=== PATIENT | female | born 1975 | race Caucasian/White ===

== ENCOUNTER 2016-10-21 13:19 | Observation (INO) | payer MEDICAID, OTHER ==
[2016-10-21] MEDS ORDERED: Sodium Chloride 0.9% 1,000 ML IV ONE ×2 (13:21→15:21)
[2016-10-21] MEDS ORDERED: Aspirin 81 MG Tab.Chew PO ONE (13:39)
[2016-10-21] MEDS ORDERED: Nitroglycerin 0.4 MG Tab.SL ONE (13:40)
[2016-10-21] MEDS ORDERED: Aspirin 81 MG Tab.Chew ONE (13:41)
[2016-10-21] MEDS: Nitroglycerin 0.4 MG Tab.SL SL PRN ×3 (13:46→13:57)
[2016-10-21] MEDS ORDERED: Morphine 2 MG/ML Syringe IVPUSH ONE ×3 (14:00→14:43)
--- NOTE | 2016-10-21 14:13 | EDM.PDOC ---
ED HPI GENERAL MEDICAL PROBLEM - General Chief Complaint: Chest Pain Stated Complaint: CHEST PAIN Time Seen by Provider: 10/21/16 13:21 Source of Information: Reports: Patient History Limitations: Reports: No Limitations - History of Present Illness INITIAL COMMENTS - FREE TEXT/NARRATIVE: HISTORY AND PHYSICAL: History of present illness: [Patient comes to the emergency room complaining of chest pain. She identifies the area of pain as being to her left chest with radiation to her left neck into her left shoulder and down her left arm. Pain developed this morning around 7 AM. Onset was gradual. Pain is currently 8 out of 10. History of CT in 2013 requiring stent 1. She has a history of diabetes for which she typically wears an insulin pump. She has not had any insulin or any of her regular medications for the past 12 months as she lost her job and insurance. She has been taking a baby aspirin every day. Has not seen her music educator, Dr. Vu for at least one year. Patient states that she always has some low-level chest pain and shortness of breath which she attributes to her asthma and COPD. She feels as though her symptoms are worse today. No improvement in her symptoms with albuterol nebulizer treatment at home.] Review of systems: As per history of present illness and below otherwise all systems reviewed and negative. Past medical history: As per history of present illness and as reviewed below otherwise noncontributory. Surgical history: As per history of present illness and as reviewed below otherwise noncontributory. Social history: No reported history of drug or alcohol abuse. Family history: As per history of present illness and as reviewed below otherwise noncontributory. Physical exam: Gen.: Well-developed well-nourished female in no acute distress. Appears to be in good health. HEENT: Atraumatic, normocephalic. Oral mucous membranes are pink and moist. Neck supple no lymphadenopathy. Lungs: Clear to auscultation, breath sounds equal bilaterally. Heart: Normal S1S2, regular rate and rhythm. Abdomen: Soft, nondistended, nontender. Pelvis: Stable nontender. Genitourinary: Deferred. Rectal: Deferred. Extremities: Atraumatic, negative for cords or calf pain. No cyanosis or edema. Neurovascular unremarkable. Neuro: Awake, alert, oriented. Motor and sensory unremarkable throughout. Exam nonfocal. Diagnostics: [EKG, chest x-ray, CBC, CMP, amylase, lipase, UA, troponin, PT/INR] Therapeutics: [Nitroglycerin 3, aspirin 324 mg, IV normal saline 250 mL/hour,] Impression: [Chest pain hyperglycemia diabetes, uncontrolled Medication noncompliance] Plan: [Glucose 404 upon presentation to the ER. Pain is 6/10 following 3 tabs of nitroglycerin. 2 doses of Morphine 2mg and 1 liter NS are given which brings pain to 0/10. EKG shows no acute findings or ST changes. Chest x-ray is without abnormality. Sodium 134, calcium 8.3. Glucose 487. Troponin <0.10. Patient's condition is discussed with Dr. Peterson who agrees to keep patient overnight for observation.] Definitive disposition and diagnosis as appropriate pending reevaluation and review of above. Left Chest Pain Score (Numeric/FACES): 8 - Related Data Allergies Allergy/AdvReac Type Severity Reaction Status Date / Time prednisone Allergy Mild Nausea Verified 10/21/16 14:11 doxycycline Allergy Hives Verified 10/21/16 14:11 Home Meds: Home Meds metFORMIN [Glucophage] 500 mg PO BID 06/21/13 [History] Fenofibrate [Fenoglide] 145 mg PO PCDINNER 05/08/14 [History] Omeprazole 20 cap PO DAILY 05/08/14 [History] Aspirin [Adeel Chewable Aspirin] 81 mg PO DAILY 07/26/14 [History] Albuterol Sulfate [Proair Hfa] 2 puff INH QID PRN 03/04/15 [History] Budesonide/Formoterol [Symbicort 160-4.5 MCG] 2 puff INH BID PRN 03/04/15 [ History] Fluticasone Propionate [Flonase Allergy Relief] 1 spray EITAN ASDIRECTED PRN 03/04 [History] Metoprolol Succinate [Toprol XL] 25 mg PO BEDTIME 03/04/15 [History] Nitroglycerin [Nitrostat] 1 tab SL ASDIRECTED 03/04/15 [History] Diltiazem HCl [Diltiazem 24Hr ER] 180 mg PO BEDTIME 06/17/15 [History] Insulin Pump/Infus. Set/Meter [Accu-Chek Combo System] 1 dose PERCUT ASDIRECTED 09/06/15 [History] Lisinopril 5 mg PO DAILY 10/01/15 [History] Ondansetron HCl [Ondansetron] 8 mg PO ASDIRECTED PRN 10/01/15 [History] atorvaSTATin Calcium [Atorvastatin Calcium] 40 mg PO BEDTIME 10/01/15 [History] traMADol [Ultram] 1 tab PO QID PRN 10/12/15 [History] Past Medical History HEENT 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: Impaired Vision Other HEENT History: wears glasses, ear infection Cardiovascular 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: Angina, High Cholesterol, Hypertension, CT Other Cardiovascular History: hx of CT with cardiac stenting 1 year ago Respiratory 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: Asthma, Bronchitis, Recurrent, COPD Other Respiratory History: Tobacco dependence, COPD with Nebulizer treatments and inhaler, Hx of bronchitis annd pneumonia Gastrointestinal 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: GERD, Hiatal Hernia Other Gastrointestinal History: abd pain Genitourinary 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: None [employer]OR OF [employer] 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: Other OB/BYN History: Cyst in ovaries Musculoskeletal 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: Arthritis Other Musculoskeletal History: right foot and ankle Neurological 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: None Other Neuro History: hx: Headaches Psychiatric 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: None Endocrine/Metabolic 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: Diabetes, Type I, Obesity/BMI 30+ Hematologic 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: Anemia Immunologic 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: None Oncologic (Cancer) 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: None Dermatologic 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: None Other Dermatologic History: current rash on left arm - Infectious Disease History Infectious Disease 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: Chicken Pox, Measles - Past Surgical History HEENT Surgical 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: Myringotomy w Tube(s) Cardiovascular Surgical 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: Coronary Artery Stent Social & Family History - Family History Family Medical History: Noncontributory HEENT: Reports: Cataract, Impaired Vision, Otitis Media, Sinusitis Cardiac: Reports: High Cholesterol, Hypertension, CT Other Cardiac Family History: heart problems maternal and paternal sides Respiratory: Reports: Asthma, COPD, Sleep Apnea GI: Reports: None Musculoskeletal: Reports: Arthritis, Gout Neurological: Reports: CVA Endocrine/Metabolic: Reports: Diabetes, Type I, Diabetes, type II, Hyperthyroidism, Obesity/MBI 30+ Hematologic: Reports: Anemia Oncologic: Reports: Lung - Tobacco Use Smoking Status *Q: Light Tobacco Smoker Years of Tobacco use: 20 Packs/Tins Daily: 0.5 Used Tobacco, but Quit: Yes Month Tobacco Last Used: t Second Hand Smoke Exposure: Yes - Alcohol Use Days Per Week of Alcohol Use: 0 - Recreational Drug Use Recreational Drug Use: No Drug Use in Last 12 Months: No ED ROS GENERAL - Review of Systems Review Of Systems: ROS reveals no pertinent complaints other than HPI. ED EXAM, GENERAL - Physical Exam Exam: See Below Course - Vital Signs Last Recorded V/S: Last Vital Signs Temp 98.5 F 10/21/16 17:10 Pulse 80 10/21/16 17:10 Resp 17 10/21/16 17:10 BP 110/61 10/21/16 17:10 Pulse Ox 96 10/21/16 17:10 - Orders/Labs/Meds Orders: Active Orders 24 hr Category Date Time Status EKG Documentation Completion [RC] STAT Care 10/21/16 13:21 Active RT Aerosol Therapy [RC] ASDIRECTED Care 10/21/16 14:47 Active Labs: Laboratory Tests 10/21/16 10/21/16 10/21/16 Range/Units 13:30 13:32 13:32 WBC 8.66 (4.0-11.0) K/uL RBC 5.38 (4.30-5.90) M/uL Hgb 13.1 (12.0-16.0) g/dL Hct 41.1 (36.0-46.0) % MCV 76.4 L (80.0-98.0) fL MCH 24.3 L (27.0-32.0) pg MCHC 31.9 (31.0-37.0) g/dL RDW Std Deviation 45.2 (28.0-62.0) fl RDW Coeff of Demond 16 H (11.0-15.0) % Plt Count 177 (150-400) K/uL MPV 10.70 (7.40-12.00) fL Neut % (Auto) 58.9 (48.0-80.0) % Lymph % (Auto) 32.9 (16.0-40.0) % Banks % (Auto) 6.7 (0.0-15.0) % Eos % (Auto) 1.2 (0.0-7.0) % Baso % (Auto) 0.3 (0.0-1.5) % Neut # (Auto) 5.1 (1.4-5.7) K/uL Lymph # (Auto) 2.9 H (0.6-2.4) K/uL Banks # (Auto) 0.6 (0.0-0.8) K/uL Eos # (Auto) 0.1 (0.0-0.7) K/uL Baso # (Auto) 0.0 (0.0-0.1) K/uL Nucleated RBC % 0.0 /100WBC Nucleated RBCs # 0 K/uL INR 0.91 (0.86-1.11) Sodium (136-146) mmol/L Potassium (3.5-5.1) mmol/L Chloride (98-110) mmol/L Carbon Dioxide (21-31) mmol/L BUN (6.0-23.0) mg/dL Creatinine (0.6-1.5) mg/dL Est Cr Clr Drug Dosing mL/min Estimated GFR (MDRD) ml/min Glucose (60-110) mg/dL POC Glucose 404 H (60-110) mg/dL Calcium (8.8-10.8) mg/dL Total Bilirubin (0.1-1.5) mg/dL AST (5-40) IU/L ALT (8-54) IU/L Alkaline Phosphatase (40-150) Troponin I (0.0-0.29) NG/ML Total Protein (6.0-8.0) g/dL Albumin (3.5-5.0) g/dL Globulin (2.0-3.5) g/dL Albumin/Globulin Ratio (1.3-2.8) Amylase (10-90) U/L Lipase (7-80) U/L Urine Color Urine Appearance Urine pH (5.0-8.0) Ur Specific [place] (1.001-1.035) Urine Protein (NEGATIVE) mg/dL Urine Glucose (UA) (NEGATIVE) mg/dL Urine Ketones (NEGATIVE) mg/dL Urine Occult Blood (NEGATIVE) Urine Nitrite (NEGATIVE) Urine Bilirubin (NEGATIVE) Urine Urobilinogen (<2.0) EU/dL Ur Leukocyte Esterase (NEGATIVE) Urine RBC (0-2/HPF) Urine WBC (0-5/HPF) Ur Epithelial Cells (NONE-FEW) Urine Bacteria (NEGATIVE) Urine HCG, Qual (NEGATIVE) 10/21/16 10/21/16 10/21/16 Range/Units 13:32 13:32 14:12 WBC (4.0-11.0) K/uL RBC (4.30-5.90) M/uL Hgb (12.0-16.0) g/dL Hct (36.0-46.0) % MCV (80.0-98.0) fL MCH (27.0-32.0) pg MCHC (31.0-37.0) g/dL RDW Std Deviation (28.0-62.0) fl RDW Coeff of Demond (11.0-15.0) % Plt Count (150-400) K/uL MPV (7.40-12.00) fL Neut % (Auto) (48.0-80.0) % Lymph % (Auto) (16.0-40.0) % Banks % (Auto) (0.0-15.0) % Eos % (Auto) (0.0-7.0) % Baso % (Auto) (0.0-1.5) % Neut # (Auto) (1.4-5.7) K/uL Lymph # (Auto) (0.6-2.4) K/uL Banks # (Auto) (0.0-0.8) K/uL Eos # (Auto) (0.0-0.7) K/uL Baso # (Auto) (0.0-0.1) K/uL Nucleated RBC % /100WBC Nucleated RBCs # K/uL INR (0.86-1.11) Sodium 134 L (136-146) mmol/L Potassium 4.1 (3.5-5.1) mmol/L Chloride 104 (98-110) mmol/L Carbon Dioxide 20 L (21-31) mmol/L BUN 10 (6.0-23.0) mg/dL Creatinine 0.9 (0.6-1.5) mg/dL Est Cr Clr Drug Dosing 73.27 mL/min Estimated GFR (MDRD) > 60.0 ml/min Glucose 487 H (60-110) mg/dL POC Glucose (60-110) mg/dL Calcium 8.3 L (8.8-10.8) mg/dL Total Bilirubin 0.3 (0.1-1.5) mg/dL AST 13 (5-40) IU/L ALT 14 (8-54) IU/L Alkaline Phosphatase 109 (40-150) Troponin I < 0.10 (0.0-0.29) NG/ML Total Protein 6.9 (6.0-8.0) g/dL Albumin 3.5 (3.5-5.0) g/dL Globulin 3.4 (2.0-3.5) g/dL Albumin/Globulin Ratio 1.0 L (1.3-2.8) Amylase 38 (10-90) U/L Lipase 62 (7-80) U/L Urine Color Urine Appearance Urine pH (5.0-8.0) Ur Specific [place] (1.001-1.035) Urine Protein (NEGATIVE) mg/dL Urine Glucose (UA) (NEGATIVE) mg/dL Urine Ketones (NEGATIVE) mg/dL Urine Occult Blood (NEGATIVE) Urine Nitrite (NEGATIVE) Urine Bilirubin (NEGATIVE) Urine Urobilinogen (<2.0) EU/dL Ur Leukocyte Esterase (NEGATIVE) Urine RBC (0-2/HPF) Urine WBC (0-5/HPF) Ur Epithelial Cells (NONE-FEW) Urine Bacteria (NEGATIVE) Urine HCG, Qual NEGATIVE (NEGATIVE) 10/21/16 Range/Units 14:12 WBC (4.0-11.0) K/uL RBC (4.30-5.90) M/uL Hgb (12.0-16.0) g/dL Hct (36.0-46.0) % MCV (80.0-98.0) fL MCH (27.0-32.0) pg MCHC (31.0-37.0) g/dL RDW Std Deviation (28.0-62.0) fl RDW Coeff of Demond (11.0-15.0) % Plt Count (150-400) K/uL MPV (7.40-12.00) fL Neut % (Auto) (48.0-80.0) % Lymph % (Auto) (16.0-40.0) % Banks % (Auto) (0.0-15.0) % Eos % (Auto) (0.0-7.0) % Baso % (Auto) (0.0-1.5) % Neut # (Auto) (1.4-5.7) K/uL Lymph # (Auto) (0.6-2.4) K/uL Banks # (Auto) (0.0-0.8) K/uL Eos # (Auto) (0.0-0.7) K/uL Baso # (Auto) (0.0-0.1) K/uL Nucleated RBC % /100WBC Nucleated RBCs # K/uL INR (0.86-1.11) Sodium (136-146) mmol/L Potassium (3.5-5.1) mmol/L Chloride (98-110) mmol/L Carbon Dioxide (21-31) mmol/L BUN (6.0-23.0) mg/dL Creatinine (0.6-1.5) mg/dL Est Cr Clr Drug Dosing mL/min Estimated GFR (MDRD) ml/min Glucose (60-110) mg/dL POC Glucose (60-110) mg/dL Calcium (8.8-10.8) mg/dL Total Bilirubin (0.1-1.5) mg/dL AST (5-40) IU/L ALT (8-54) IU/L Alkaline Phosphatase (40-150) Troponin I (0.0-0.29) NG/ML Total Protein (6.0-8.0) g/dL Albumin (3.5-5.0) g/dL Globulin (2.0-3.5) g/dL Albumin/Globulin Ratio (1.3-2.8) Amylase (10-90) U/L Lipase (7-80) U/L Urine Color YELLOW Urine Appearance CLEAR Urine pH 6.0 (5.0-8.0) Ur Specific [place] 1.010 (1.001-1.035) Urine Protein NEGATIVE (NEGATIVE) mg/dL Urine Glucose (UA) >=1000 (NEGATIVE) mg/dL Urine Ketones NEGATIVE (NEGATIVE) mg/dL Urine Occult Blood NEGATIVE (NEGATIVE) Urine Nitrite NEGATIVE (NEGATIVE) Urine Bilirubin NEGATIVE (NEGATIVE) Urine Urobilinogen 0.2 (<2.0) EU/dL Ur Leukocyte Esterase TRACE (NEGATIVE) Urine RBC 0-2 (0-2/HPF) Urine WBC 3-5 (0-5/HPF) Ur Epithelial Cells FEW (NONE-FEW) Urine Bacteria FEW (NEGATIVE) Urine HCG, Qual (NEGATIVE) Meds: Medications Discontinued Medications Generic Name Dose Route Start Last Admin Trade Name Freq PRN Reason Stop Dose Admin Albuterol/Ipratropium 3 ml 10/21/16 14:47 10/21/16 14:55 Duoneb 3.0-0.5 Mg/3 Ml NEB 10/21/16 14:48 3 ml ONETIME ONE Administration Aspirin 324 mg 10/21/16 13:39 10/21/16 13:43 Aspirin PO 10/21/16 13:40 324 mg ONETIME ONE Administration Aspirin Confirm 10/21/16 13:41 10/21/16 13:53 Aspirin Administered 10/21/16 13:42 Not Given Dose 324 mg .ROUTE .STK-MED ONE Sodium Chloride 1,000 mls @ 250 mls/hr 10/21/16 13:21 10/21/16 13:54 Normal Saline IV 10/21/16 17:20 250 mls/hr .Bolus ONE Administration Sodium Chloride 1,000 mls @ 999 mls/hr 10/21/16 15:21 10/21/16 16:28 Normal Saline IV 10/21/16 16:21 999 mls/hr STAT ONE Administration Morphine Sulfate 2 mg 10/21/16 14:00 10/21/16 14:04 Morphine IVPUSH 10/21/16 14:01 2 mg ONETIME ONE Administration Morphine Sulfate 2 mg 10/21/16 14:42 10/21/16 15:24 Morphine IVPUSH 10/21/16 14:43 2 mg ONETIME ONE Administration Morphine Sulfate 2 mg 10/21/16 14:43 10/21/16 14:48 Morphine IVPUSH 10/21/16 14:44 Not Given ONETIME ONE Nitroglycerin 0.4 mg 10/21/16 13:39 10/21/16 13:57 Nitrostat SL 10/21/16 13:50 0.4 mg Q5M PRN Administration Chest Pain Nitroglycerin Confirm 10/21/16 13:40 10/21/16 13:53 Nitrostat Administered 10/21/16 13:41 Not Given Dose 1.2 mg .ROUTE .STK-MED ONE Ondansetron HCl 4 mg 10/21/16 14:42 10/21/16 14:49 Zofran IVPUSH 10/21/16 14:43 Not Given ONETIME ONE Ondansetron HCl 4 mg 10/21/16 14:42 10/21/16 15:22 Zofran IVPUSH 10/21/16 14:43 4 mg ONETIME ONE Administration Departure - Departure Time of Disposition: 17:29 Disposition: Refer to Observation Condition: Good Clinical Impression: Chest pain - My Orders Last 24 Hours: My Active Orders 10/21/16 13:21 EKG Documentation Completion [RC] STAT 10/21/16 14:47 RT Aerosol Therapy [RC] ASDIRECTED - Assessment/Plan Last 24 Hours: My Active Orders 10/21/16 13:21 EKG Documentation Completion [RC] STAT 10/21/16 14:47 RT Aerosol Therapy [RC] ASDIRECTED
[2016-10-21 14:39] LABS: CHLORIDE,CL 104 mmol/L (98-110); SODIUM,NA 134 mmol/L (136-146)
[2016-10-21] MEDS ORDERED: Ondansetron 4 MG/2 ML SDV IVPUSH ONE ×2 (14:42)
--- NOTE | 2016-10-21 14:43 | CR ---
2 view chest x-ray The heart lungs with distended abdomen bony thorax are free of acute pathology. Cardiac monitoring l yoshi are in place. Impression: No acute cardiopulmonary disease. No change since December 10, 2015
[2016-10-21] MEDS ORDERED: Albuterol/Ipratropium 3.0-0.5 MG/3 ML Neb Soln NEB ONE (14:47)
[2016-10-21] MEDS ORDERED: Acetaminophen 325 MG Tab PO PRN (18:03)
[2016-10-21] MEDS ORDERED: Sodium Chloride 0.9% 2.5 ML Syringe FLUSH PRN (18:03)
[2016-10-21] MEDS ORDERED: Ondansetron 4 MG Tab.DIS PO PRN (18:03)
[2016-10-21] MEDS ORDERED: Albuterol/Ipratropium 3.0-0.5 MG/3 ML Neb Soln NEB PRN (18:03)
[2016-10-21] MEDS ORDERED: Sodium Chloride 0.9% 10 ML Syringe FLUSH PRN (18:03)
[2016-10-21] MEDS ORDERED: Nitroglycerin 0.4 MG Tab.SL SL PRN (18:20)
--- NOTE | 2016-10-21 18:31 | PCM.HP ---
H&P History of Present Illness - General Date of Service: 10/21/16 Admit Problem/Dx: Admission Diagnosis/Problem Admission Diagnosis/Problem Chest pain Source of Information: Patient - History of Present Illness Initial Comments - Free Text/Narative: -year-old female here secondary to acute chest pain. Patient has a significant past medical history of GA 3 years ago with stent placement. Patient states that this morning she was cleaning when she felt a sharp spasm type pain in her left shoulder that started to radiate down her arm as well as subsequently developing a pressure/achy chest pain that was not alleviated. Patient became concerned secondary to her significant cardiovascular history and came to the emergency department. Patient stated that she did not take any other medication aside from aspirin. She is a type II diabetic as well has a history of COPD. Patient is supposed to be on senior care inhalers as well as a insulin pump with metformin as well as a hypertensive for her hypertension however due to financial concerns she has been unable to refill any of her medications. The only medication she is taking at this point in time is 81 mg of aspirin. In the ED the patient was given sublingual nitroglycerin was assessed for her chest pain with an ECG which was normal, troponins first set which were normal, and a relatively benign CBC and CMP. Patient did however have a significant hyperglycemia with a blood sugar of about 450 and on a secondary check a blood sugar of 404. Based on the significant past medical history of myocardial infarction with stent placement the patient needs to be admitted for acute coronary syndrome rule out. She does see Dr. Knox who is her archeologist classical in [place], however has not seen him for at least the past year. Left Chest Pain Score (Numeric/FACES): 8 - Related Data Allergies/Adverse Reactions: Allergies Allergy/AdvReac Type Severity Reaction Status Date / Time prednisone Allergy Mild Nausea Verified 10/21/16 14:11 doxycycline Allergy Hives Verified 10/21/16 14:11 Home Medications: Home Meds metFORMIN [Glucophage] 500 mg PO BID 06/21/13 [History] Fenofibrate [Fenoglide] 145 mg PO PCDINNER 05/08/14 [History] Omeprazole 20 cap PO DAILY 05/08/14 [History] Aspirin [Adeel Chewable Aspirin] 81 mg PO DAILY 07/26/14 [History] Albuterol Sulfate [Proair Hfa] 2 puff INH QID PRN 03/04/15 [History] Budesonide/Formoterol [Symbicort 160-4.5 MCG] 2 puff INH BID PRN 03/04/15 [ History] Fluticasone Propionate [Flonase Allergy Relief] 1 spray EITAN ASDIRECTED PRN 03/04 [History] Metoprolol Succinate [Toprol XL] 25 mg PO BEDTIME 03/04/15 [History] Nitroglycerin [Nitrostat] 1 tab SL ASDIRECTED 03/04/15 [History] Diltiazem HCl [Diltiazem 24Hr ER] 180 mg PO BEDTIME 06/17/15 [History] Insulin Pump/Infus. Set/Meter [Accu-Chek Combo System] 1 dose PERCUT ASDIRECTED 09/06/15 [History] Lisinopril 5 mg PO DAILY 10/01/15 [History] Ondansetron HCl [Ondansetron] 8 mg PO ASDIRECTED PRN 10/01/15 [History] atorvaSTATin Calcium [Atorvastatin Calcium] 40 mg PO BEDTIME 10/01/15 [History] traMADol [Ultram] 1 tab PO QID PRN 10/12/15 [History] Past Medical History HEENT 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: Impaired Vision Other HEENT History: wears glasses, ear infection Cardiovascular 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: Angina, High Cholesterol, Hypertension, GA Other Cardiovascular History: hx of GA with cardiac stenting 1 year ago Respiratory 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: Asthma, Bronchitis, Recurrent, COPD Other Respiratory History: Tobacco dependence, COPD with Nebulizer treatments and inhaler, Hx of bronchitis annd pneumonia Gastrointestinal 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: GERD, Hiatal Hernia Other Gastrointestinal History: abd pain Genitourinary 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: None [employer]UE 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: Other OB/BYN History: Cyst in ovaries Musculoskeletal 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: Arthritis Other Musculoskeletal History: right foot and ankle Neurological 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: None Other Neuro History: hx: Headaches Psychiatric 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: None Endocrine/Metabolic 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: Diabetes, Type I, Obesity/BMI 30+ Hematologic 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: Anemia Immunologic 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: None Oncologic (Cancer) 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: None Dermatologic 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: None Other Dermatologic History: current rash on left arm - Infectious Disease History Infectious Disease 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: Chicken Pox, Measles - Past Surgical History HEENT Surgical 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: Myringotomy w Tube(s) Cardiovascular Surgical 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: Coronary Artery Stent Social & Family History - Family History Family Medical History: Noncontributory HEENT: Reports: Cataract, Impaired Vision, Otitis Media, Sinusitis Cardiac: Reports: High Cholesterol, Hypertension, GA Other Cardiac Family History: heart problems maternal and paternal sides Respiratory: Reports: Asthma, COPD, Sleep Apnea GI: Reports: None Musculoskeletal: Reports: Arthritis, Gout Neurological: Reports: CVA Endocrine/Metabolic: Reports: Diabetes, Type I, Diabetes, type II, Hyperthyroidism, Obesity/MBI 30+ Hematologic: Reports: Anemia Oncologic: Reports: Lung - Tobacco Use Smoking Status *Q: Light Tobacco Smoker Years of Tobacco use: 20 Packs/Tins Daily: 0.5 Used Tobacco, but Quit: Yes Month Tobacco Last Used: t Second Hand Smoke Exposure: Yes - Caffeine Use Caffeine Use: Reports: None - Alcohol Use Days Per Week of Alcohol Use: 0 - Recreational Drug Use Recreational Drug Use: No Drug Use in Last 12 Months: No H&P Review of Systems - Review of Systems: Review Of Systems: ROS reveals no pertinent complaints other than HPI. Exam - Exam Exam: See Below - Vital Signs Vital Signs: Last Vital Signs Temp 36.9 C 10/21/16 17:10 Pulse 80 10/21/16 17:10 Resp 17 10/21/16 17:10 BP 110/61 10/21/16 17:10 Pulse Ox 96 10/21/16 17:10 Weight: 83.915 kg - Exam Quality Assessment: Supplemental Oxygen General: Alert, Oriented, Cooperative HEENT: Conjunctiva Clear Neck: Supple, Trachea Midline Lungs: Clear to Auscultation, Wheezing (Bilateral expiratory wheezing) Cardiovascular: Regular Rate, Regular Rhythm GI/Abdominal Exam: Normal Bowel Sounds, Soft, Non-Tender Back Exam: Normal Inspection Extremities: Normal Inspection, Normal Range of Motion Skin: Warm, Dry, Intact Neurological: Cranial Nerves Intact Neuro Extensive - Mental Status: Alert, Oriented x3 Neuro Extensive - Motor, Sensory, Reflexes: CN II-XII Intact - Patient Data Result Diagrams: 10/21/16 13:32 10/21/16 13:32 EKG INTERPRETATION Rhythm: NSR *Q Meaningful Use (ADM) - VTE *Q VTE Criteria *Q: - Stroke *Q Stroke Criteria *Q: - AMI *Q AMI Criteria *Q: - Problem List (1) COPD, Moderate chronic obstructive pulmonary disease SNOMED Code(s): 934533729 ICD Code: J44.9 - CHRONIC OBSTRUCTIVE PULMONARY DISEASE, UNSPECIFIED Status : Chronic Priority: High Current Visit: No (2) Chest pain SNOMED Code(s): 10379240 ICD Code: R07.9 - CHEST PAIN, UNSPECIFIED Status: Acute Priority: High Current Visit: No (3) Diabetes mellitus SNOMED Code(s): 52641610 ICD Code: E11.9 - TYPE 2 DIABETES MELLITUS WITHOUT COMPLICATIONS Status: Chronic Priority: High Current Visit: No (4) Atypical chest pain SNOMED Code(s): 495485288 ICD Code: R07.89 - OTHER CHEST PAIN Status: Acute Priority: High Current Visit: No Problem List Initiated/Reviewed/Updated: Yes Orders Last 24hrs: Active Orders 24 hr Category Date Time Status Patient Status [ADT] Routine ADT 10/21/16 17:58 Ordered Blood Glucose Check, Bedside [RC] QIDACANDBED Care 10/21/16 18:03 Ordered Cardiac Monitoring [RC] CONTINUOUS Care 10/21/16 18:06 Ordered Height and Weight [RC] UPON Care 10/21/16 18:03 Ordered Intake and Output [RC] QSHIFT Care 10/21/16 18:05 Ordered Notify Provider Vital Signs [RC] ASDIRECTED Care 10/21/16 18:06 Ordered Oxygen Therapy [RC] PRN Care 10/21/16 17:58 Ordered Peripheral IV Care [RC] . DIRECTED Care 10/21/16 18:03 Ordered Pulse Oximetry [RC] PRN Care 10/21/16 18:05 Ordered RT Aerosol Therapy [RC] ASDIRECTED Care 10/21/16 18:17 Ordered Up With Assistance [RC] ASDIRECTED Care 10/21/16 18:03 Ordered VTE/DVT Education [RC] PER UNIT ROUTINE Care 10/21/16 17:58 Ordered Vital Signs [RC] Q4H Care 10/21/16 17:58 Ordered [employer] [employer] Diet [DIET] Diet 10/21/16 Breakfast Ordered BASIC METABOLIC PANEL,BMP [CHEM] AM Lab 10/22/16 05:11 Ordered CBC WITH AUTO DIFF [HEME] AM Lab 10/22/16 05:11 Ordered TROPONIN I [CHEM] Q6H Lab 10/21/16 19:30 Ordered TROPONIN I [CHEM] Q6H Lab 10/22/16 01:30 Ordered TROPONIN I [CHEM] Timed Lab 10/21/16 19:20 Stop Req Acetaminophen [Tylenol] Med 10/21/16 18:03 Ordered 650 mg PO Q4H PRN Albuterol/Ipratropium [DuoNeb 3.0-0.5 MG/3 ML] Med 10/21/16 18:03 Ordered 3 ml NEB Q4HRRT PRN Enoxaparin [Lovenox] Med 10/22/16 09:00 Ordered 40 mg SUBCUT DAILY Insulin Aspart [NovoLOG] Med 10/22/16 07:30 Ordered See Protocol SUBCUT TIDAC Insulin Glarg,Human.Rec.Analog [LantUS Solostar] Med 10/21/16 21:00 Ordered 10 units SUBCUT BEDTIME Nitroglycerin [Nitrostat] Med 10/21/16 18:20 Ordered 0.4 mg SL Q5M PRN Ondansetron [Zofran ODT] Med 10/21/16 18:03 Ordered 4 mg PO Q4H PRN Sodium Chloride 0.9% @ 125 MLS/HR (1000ml) Med 10/21/16 18:15 Ordered Sodium Chloride 0.9% [Normal Saline] 1,000 ml IV ASDIRECTED Sodium Chloride 0.9% [Saline Flush] Med 10/21/16 18:03 Ordered 10 ml FLUSH ASDIRECTED PRN Sodium Chloride 0.9% [Saline Flush] Med 10/21/16 18:03 Ordered 2.5 ml FLUSH ASDIRECTED PRN Peripheral IV Insertion Adult [OM.PC] Routine Oth 10/21/16 18:03 Ordered Saline Lock Insert [OM.PC] Routine Oth 10/21/16 18:03 Ordered Resuscitation Status Routine Resus Stat 10/21/16 17:56 Ordered Medication Orders Acetaminophen (Tylenol) 650 mg PO Q4H PRN PRN Reason: Pain (Mild 1-3)/fever Albuterol/Ipratropium (Duoneb 3.0-0.5 Mg/3 Ml) 3 ml NEB Q4HRRT PRN PRN Reason: Wheezing Enoxaparin Sodium (Lovenox) 40 mg SUBCUT DAILY TIFFANIE Sodium Chloride (Normal Saline) 1,000 mls @ 125 mls/hr IV ASDIRECTED TIFFANIE Insulin Aspart (Novolog) 0 unit SUBCUT TIDAC TIFFANIE PRN Reason: Protocol Insulin Glargine (Lantus Solostar) 10 units SUBCUT BEDTIME TIFFANIE Nitroglycerin (Nitrostat) 0.4 mg SL Q5M PRN PRN Reason: Chest Pain Stop: 10/21/16 18:31 Ondansetron HCl (Zofran Odt) 4 mg PO Q4H PRN PRN Reason: nausea, able to take PO Sodium Chloride (Saline Flush) 10 ml FLUSH ASDIRECTED PRN PRN Reason: Keep Vein Open Sodium Chloride (Saline Flush) 2.5 ml FLUSH ASDIRECTED PRN PRN Reason: Keep Vein Open Assessment/Plan Comment:: Assessment and plan #1. Acute left shoulder pain radiating down the arm spasm in nature as well as chest pain pressure-like with a significant past medical history of an GA 3 years ago with stent placement - Admitted for observation, acute coronary syndrome rule out, troponins trending 3, basic labs including CBC, BMP - Sublingual nitroglycerin for pain - EKG normal -Telemetry monitoring #2. Diabetes mellitus type 2 -Lantus 10 mg at night along with moderate dose log. Insulin sliding scale protocol -Glucose check with every meal along with morning and bedtime -IV fluids 125 normal saline #3. COPD - DuoNeb's when necessary as needed - We'll continue to monitor if required we'll escalate therapy, pulse ox is needed Patient admitted to observation less than 2 midnights
[2016-10-21] MEDS ORDERED: Insulin Aspart 100 Units/ML 3 ML Pen SUBCUT SCH (18:39)
[2016-10-21] MEDS ORDERED: Enoxaparin 40 MG/0.4 ML Syringe SUBCUT SCH (18:41)
[2016-10-21] MEDS: Sodium Chloride 0.9% 1,000 ML IV SCH (18:54)
[2016-10-21] MEDS: Enoxaparin 40 MG/0.4 ML Syringe SUBCUT SCH (19:29)
[2016-10-21] MEDS ORDERED: Morphine 2 MG/ML Syringe IVPUSH PRN (20:16)
[2016-10-21] MEDS ORDERED: Insulin Glargine,Human Rec. Analog 100 Units/ML 3 ML Pen SUBCUT SCH (21:00)
[2016-10-21] MEDS: Insulin Aspart 100 Units/ML 3 ML Pen SUBCUT SCH (21:16)
[2016-10-22] MEDS: Sodium Chloride 0.9% 1,000 ML IV SCH (02:56)
[2016-10-22] MEDS: Insulin Aspart 100 Units/ML 3 ML Pen SUBCUT SCH ×2 (06:33→11:20)
[2016-10-22 06:44] LABS: CHLORIDE,CL 111 mmol/L (98-110); SODIUM,NA 138 mmol/L (136-146)
[2016-10-22] MEDS ORDERED: Insulin Aspart 100 Units/ML 3 ML Pen SUBCUT SCH (07:30)
[2016-10-22] MEDS: Enoxaparin 40 MG/0.4 ML Syringe SUBCUT SCH (08:26)
[2016-10-22 08:50] VITALS: BP 121/64
[2016-10-22] MEDS ORDERED: Enoxaparin 40 MG/0.4 ML Syringe SUBCUT SCH (09:00)
[2016-10-22] MEDS ORDERED: Calcium Carbonate 500 MG Tab.Chew PO SCH (09:45)
[2016-10-22] MEDS ORDERED: Albuterol 8 GM Inhaler INH PRN (10:27)
[2016-10-22] MEDS ORDERED: Fluticasone/Salmeterol 250-50 MCG Inhalation Powder 14/Diskus INH SCH (10:30)
--- NOTE | 2016-10-22 12:34 | PCM.DCSUM1 ---
Discharge Summary - Hospital Course Free Text/Narrative:: Discharge Summary Date of admission:10/21/2016 Date of discharge:date 10/22/2016 Admitting diagnosis: #1.acute chest pain secondary to every coronary syndrome versus gastroesophageal reflux disease in the setting of previous [place] with stenting. #2.diabetes mellitus type 2 uncontrolled secondary to inadequate medication #3.COPD secondary to medication noncompliance due to financial concerns #4.hyperglycemia secondary to inadequate medication usage #5. Discharge diagnoses: #1.acute chest pain ruled out secondary to negative troponins 3, #2. IVs mellitus type II sent home on long-acting Lantus as well as NovoLog patient to follow-up with primary care physician as well as diabetic dietitian #3.COPD sent home on Advair and albuterol inhaler #4.hypocalcemia #5. Consultations: None Procedures: None Hospitalization course:patient was admitted for acute corner syndrome rule out as she did have a past medical history significant for myocardial infarction. Patient's troponins 3 were negative patient did not have any further chest pain exacerbation. Patient's vital signs were all within normal limits patient did denied any nausea vomiting diarrhea or constipation while in inpatient stay. Patient did receive long-acting insulin overnight as well as a moderate sliding scale for uncontrolled diabetes. A hemoglobin A1c showed a level of 13.2 which was quite high patient was told that she needs to be compliant with her medication and to follow-up with her primary care physician as well as asthma educator. Patient agreed to this and subsequently after all vitals were checked to be normal and follow-up appointments were made patient was sent home on long-acting insulin as well as short acting insulin as well as albuterol and Advair inhaler for her COPD. Disposition on discharge:home Condition on discharge:stable, normal vital signs, afebrile, normotensive, non- tachycardic nontachypneic Discharge medications:continuation of home medication as well as long-acting Lantus, short acting NovoLog,, albuterol inhaler Advair inhaler Follow-up instructions:follow-up with primary care physician as well as asthma educator Instructions on discharge:patient was told that if she had any further symptoms of chest pain she is to come back to the ER for reassessment. Patient was told to continue with her insulin medication as her hemoglobin A1c is quite elevated. Patient was told to see her primary care physician immediately. - Discharge Data Discharge Date: 10/22/16 Discharge Disposition: Home, Self-Care 01 Condition: Fair - Discharge Diagnosis/Problem(s) (1) COPD, Moderate chronic obstructive pulmonary disease SNOMED Code(s): 918424806 ICD Code: J44.9 - CHRONIC OBSTRUCTIVE PULMONARY DISEASE, UNSPECIFIED Status : Chronic Priority: High Current Visit: No (2) Chest pain SNOMED Code(s): 09656593 ICD Code: R07.9 - CHEST PAIN, UNSPECIFIED Status: Acute Priority: High Current Visit: No (3) Diabetes mellitus SNOMED Code(s): 02366444 ICD Code: E11.9 - TYPE 2 DIABETES MELLITUS WITHOUT COMPLICATIONS Status: Chronic Priority: High Current Visit: No (4) Atypical chest pain SNOMED Code(s): 704418502 ICD Code: R07.89 - OTHER CHEST PAIN Status: Acute Priority: High Current Visit: No - Patient Instructions Diet: Diabetic Diet Activity: As Tolerated Driving: May Drive Today Showering/Bathing: May Shower Notify Provider of: Fever, Increased Pain, Swelling and Redness - Discharge Plan Home Medications: Home Meds metFORMIN [Glucophage] 500 mg PO BID 06/21/13 [History] Fenofibrate [Fenoglide] 145 mg PO PCDINNER 05/08/14 [History] Omeprazole 20 cap PO DAILY 05/08/14 [History] Aspirin [Adeel Chewable Aspirin] 81 mg PO DAILY 07/26/14 [History] Albuterol Sulfate [Proair Hfa] 2 puff INH QID PRN 03/04/15 [History] Budesonide/Formoterol [Symbicort 160-4.5 MCG] 2 puff INH BID PRN 03/04/15 [ History] Fluticasone Propionate [Flonase Allergy Relief] 1 spray EITAN ASDIRECTED PRN 03/04 [History] Metoprolol Succinate [Toprol XL] 25 mg PO BEDTIME 03/04/15 [History] Nitroglycerin [Nitrostat] 1 tab SL ASDIRECTED 03/04/15 [History] Diltiazem HCl [Diltiazem 24Hr ER] 180 mg PO BEDTIME 06/17/15 [History] Insulin Pump/Infus. Set/Meter [Accu-Chek Combo System] 1 dose PERCUT ASDIRECTED 09/06/15 [History] Lisinopril 5 mg PO DAILY 10/01/15 [History] Ondansetron HCl [Ondansetron] 8 mg PO ASDIRECTED PRN 10/01/15 [History] atorvaSTATin Calcium [Atorvastatin Calcium] 40 mg PO BEDTIME 10/01/15 [History] traMADol [Ultram] 1 tab PO QID PRN 10/12/15 [History] Albuterol [IJD: Albuterol HFA] 4 gm INH Q4H PRN #0 inhaler 10/22/16 [Rx] Calcium Carbonate [Tums] 1,000 mg PO DAILY #0 tab.chew 10/22/16 [Rx] Fluticasone/Salmeterol [Advair Diskus 250-50] 1 puff INH BID #0 inhaler [Rx] Insulin Aspart [NovoLOG] 0 unit SUBCUT ACBED #0 pen 10/22/16 [Rx] Insulin Glarg,Human.Rec.Analog [LantUS Solostar] 10 units SUBCUT BEDTIME #0 pen 10/22/16 [Rx] Patient Handouts: Insulin Treatment for Diabetes, Fluticasone; Salmeterol inhalation powder, Nonspecific Chest Pain, Type 1 Diabetes Mellitus, Adult Forms: ED Department Discharge Referrals: [facility] [Outside] PCP,None [Primary Care Provider] - Josue Peterson MD [Ordering Only Provider] - - Discharge Summary/Plan Comment DC Time >30 min.: No - Patient Data Vitals - Most Recent: Last Vital Signs Temp 37.5 C 10/22/16 08:00 Pulse 79 10/22/16 08:00 Resp 18 10/22/16 08:00 BP 121/64 10/22/16 08:00 Pulse Ox 96 10/22/16 08:00 Weight - Most Recent: 85.185 kg I&O - Last 24 hours: Intake & Output 10/21/16 10/22/16 10/22/16 22:59 06:59 14:59 Intake Total 2300 1000 Output Total 1420 Balance 880 1000 Lab Results - Last 24 hrs: Laboratory Results - last 24 hr 10/21/16 10/21/16 10/21/16 Range/Units 18:25 19:09 19:09 WBC (4.0-11.0) K/uL RBC (4.30-5.90) M/uL Hgb (12.0-16.0) g/dL Hct (36.0-46.0) % MCV (80.0-98.0) fL MCH (27.0-32.0) pg MCHC (31.0-37.0) g/dL RDW Std Deviation (28.0-62.0) fl RDW Coeff of Demond (11.0-15.0) % Plt Count (150-400) K/uL MPV (7.40-12.00) fL Neut % (Auto) (48.0-80.0) % Lymph % (Auto) (16.0-40.0) % [place] % (Auto) (0.0-15.0) % Eos % (Auto) (0.0-7.0) % Baso % (Auto) (0.0-1.5) % Neut # (Auto) (1.4-5.7) K/uL Lymph # (Auto) (0.6-2.4) K/uL [place] # (Auto) (0.0-0.8) K/uL Eos # (Auto) (0.0-0.7) K/uL Baso # (Auto) (0.0-0.1) K/uL Nucleated RBC % /100WBC Nucleated RBCs # K/uL Sodium (136-146) mmol/L Potassium (3.5-5.1) mmol/L Chloride (98-110) mmol/L Carbon Dioxide (21-31) mmol/L BUN (6.0-23.0) mg/dL Creatinine (0.6-1.5) mg/dL Est Cr Clr Drug Dosing mL/min Estimated GFR (MDRD) ml/min Glucose (60-110) mg/dL POC Glucose 186 H (60-110) mg/dL Hemoglobin A1c 13.2 H (0.0-6.0) % Calcium (8.8-10.8) mg/dL Troponin I < 0.10 (0.0-0.29) NG/ML 10/21/16 10/22/16 10/22/16 Range/Units 20:44 01:30 06:12 WBC 7.19 (4.0-11.0) K/uL RBC 4.83 (4.30-5.90) M/uL Hgb 11.7 L (12.0-16.0) g/dL Hct 36.9 (36.0-46.0) % MCV 76.4 L (80.0-98.0) fL MCH 24.2 L (27.0-32.0) pg MCHC 31.7 (31.0-37.0) g/dL RDW Std Deviation 44.9 (28.0-62.0) fl RDW Coeff of Demond 16 H (11.0-15.0) % Plt Count 166 (150-400) K/uL MPV 10.80 (7.40-12.00) fL Neut % (Auto) 53.1 (48.0-80.0) % Lymph % (Auto) 40.2 H (16.0-40.0) % [place] % (Auto) 5.1 (0.0-15.0) % Eos % (Auto) 1.3 (0.0-7.0) % Baso % (Auto) 0.3 (0.0-1.5) % Neut # (Auto) 3.8 (1.4-5.7) K/uL Lymph # (Auto) 2.9 H (0.6-2.4) K/uL [place] # (Auto) 0.4 (0.0-0.8) K/uL Eos # (Auto) 0.1 (0.0-0.7) K/uL Baso # (Auto) 0.0 (0.0-0.1) K/uL Nucleated RBC % 0.0 /100WBC Nucleated RBCs # 0 K/uL Sodium (136-146) mmol/L Potassium (3.5-5.1) mmol/L Chloride (98-110) mmol/L Carbon Dioxide (21-31) mmol/L BUN (6.0-23.0) mg/dL Creatinine (0.6-1.5) mg/dL Est Cr Clr Drug Dosing mL/min Estimated GFR (MDRD) ml/min Glucose (60-110) mg/dL POC Glucose 309 H (60-110) mg/dL Hemoglobin A1c (0.0-6.0) % Calcium (8.8-10.8) mg/dL Troponin I < 0.10 (0.0-0.29) NG/ML 10/22/16 10/22/16 Range/Units 06:12 06:19 WBC (4.0-11.0) K/uL RBC (4.30-5.90) M/uL Hgb (12.0-16.0) g/dL Hct (36.0-46.0) % MCV (80.0-98.0) fL MCH (27.0-32.0) pg MCHC (31.0-37.0) g/dL RDW Std Deviation (28.0-62.0) fl RDW Coeff of Demond (11.0-15.0) % Plt Count (150-400) K/uL MPV (7.40-12.00) fL Neut % (Auto) (48.0-80.0) % Lymph % (Auto) (16.0-40.0) % [place] % (Auto) (0.0-15.0) % Eos % (Auto) (0.0-7.0) % Baso % (Auto) (0.0-1.5) % Neut # (Auto) (1.4-5.7) K/uL Lymph # (Auto) (0.6-2.4) K/uL [place] # (Auto) (0.0-0.8) K/uL Eos # (Auto) (0.0-0.7) K/uL Baso # (Auto) (0.0-0.1) K/uL Nucleated RBC % /100WBC Nucleated RBCs # K/uL Sodium 138 (136-146) mmol/L Potassium 3.8 (3.5-5.1) mmol/L Chloride 111 H (98-110) mmol/L Carbon Dioxide 19 L (21-31) mmol/L BUN 5 L (6.0-23.0) mg/dL Creatinine 0.6 (0.6-1.5) mg/dL Est Cr Clr Drug Dosing 105.47 mL/min Estimated GFR (MDRD) > 60.0 ml/min Glucose 212 H (60-110) mg/dL POC Glucose 203 H (60-110) mg/dL Hemoglobin A1c (0.0-6.0) % Calcium 7.6 L (8.8-10.8) mg/dL Troponin I (0.0-0.29) NG/ML Med Orders - Current: Current Medications Acetaminophen (Tylenol) 650 mg PO Q4H PRN PRN Reason: Pain (Mild 1-3)/fever Last Admin: 10/22/16 06:39 Dose: 650 mg Albuterol (Ventolin Hfa) 4 gm INH Q4H PRN PRN Reason: Wheezing Albuterol/Ipratropium (Duoneb 3.0-0.5 Mg/3 Ml) 3 ml NEB Q4HRRT PRN PRN Reason: Wheezing Last Admin: 10/22/16 06:21 Dose: 3 ml Calcium Carbonate/Glycine (Tums) 1,000 mg PO DAILY TIFFANIE Last Admin: 10/22/16 09:57 Dose: 1,000 mg Enoxaparin Sodium (Lovenox) 40 mg SUBCUT DAILY [facility] Last Admin: 10/22/16 08:26 Dose: 40 mg Sodium Chloride (Normal Saline) 1,000 mls @ 125 mls/hr IV ASDIRECTED [facility] Last Admin: 10/22/16 02:56 Dose: 125 mls/hr Insulin Aspart (Novolog) 0 unit SUBCUT ACBED TIFFANIE PRN Reason: Protocol Last Admin: 10/22/16 11:20 Dose: 6 units Insulin Glargine (Lantus Solostar) 10 units SUBCUT BEDTIME TIFFANIE Last Admin: 10/21/16 20:45 Dose: 10 units Morphine Sulfate (Morphine) 2 mg IVPUSH Q4H PRN PRN Reason: Pain Last Admin: 10/21/16 20:46 Dose: 2 mg Ondansetron HCl (Zofran Odt) 4 mg PO Q4H PRN PRN Reason: nausea, able to take PO Last Admin: 10/21/16 20:51 Dose: 4 mg Fluticasone/Salmeterol (Advair Diskus 250-50) 1 puff INH BID [facility] Last Admin: 10/22/16 10:52 Dose: 1 canister Sodium Chloride (Saline Flush) 10 ml FLUSH ASDIRECTED PRN PRN Reason: Keep Vein Open Sodium Chloride (Saline Flush) 2.5 ml FLUSH ASDIRECTED PRN PRN Reason: Keep Vein Open Discontinued Medications Albuterol/Ipratropium (Duoneb 3.0-0.5 Mg/3 Ml) 3 ml NEB ONETIME ONE Stop: 10/21/16 14:48 Last Admin: 10/21/16 14:55 Dose: 3 ml Aspirin (Aspirin) 324 mg PO ONETIME ONE Stop: 10/21/16 13:40 Last Admin: 10/21/16 13:43 Dose: 324 mg Aspirin (Aspirin) Confirm Administered Dose 324 mg .ROUTE .STK-MED ONE Stop: 10/21/16 13:42 Last Admin: 10/21/16 13:53 Dose: Not Given Enoxaparin Sodium (Lovenox) 40 mg SUBCUT DAILY TIFFANIE Enoxaparin Sodium (Lovenox) 40 mg SUBCUT DAILY TIFFANIE Sodium Chloride (Normal Saline) 1,000 mls @ 250 mls/hr IV .Bolus ONE Stop: 10/21/16 17:20 Last Admin: 10/21/16 13:54 Dose: 250 mls/hr Sodium Chloride (Normal Saline) 1,000 mls @ 999 mls/hr IV STAT ONE Stop: 10/21/16 16:21 Last Admin: 10/21/16 16:28 Dose: 999 mls/hr Insulin Aspart (Novolog) 0 unit SUBCUT TIDAC TIFFANIE PRN Reason: Protocol Insulin Aspart (Novolog) 0 unit SUBCUT TIDAC TIFFANIE PRN Reason: Protocol Last Admin: 10/21/16 18:53 Dose: 2 units Morphine Sulfate (Morphine) 2 mg IVPUSH ONETIME ONE Stop: 10/21/16 14:01 Last Admin: 10/21/16 14:04 Dose: 2 mg Morphine Sulfate (Morphine) 2 mg IVPUSH ONETIME ONE Stop: 10/21/16 14:43 Last Admin: 10/21/16 15:24 Dose: 2 mg Morphine Sulfate (Morphine) 2 mg IVPUSH ONETIME ONE Stop: 10/21/16 14:44 Last Admin: 10/21/16 14:48 Dose: Not Given Nitroglycerin (Nitrostat) 0.4 mg SL Q5M PRN PRN Reason: Chest Pain Stop: 10/21/16 13:50 Last Admin: 10/21/16 13:57 Dose: 0.4 mg Nitroglycerin (Nitrostat) Confirm Administered Dose 1.2 mg .ROUTE .STK-MED ONE Stop: 10/21/16 13:41 Last Admin: 10/21/16 13:53 Dose: Not Given Nitroglycerin (Nitrostat) 0.4 mg SL Q5M PRN PRN Reason: Chest Pain Stop: 10/21/16 18:31 Ondansetron HCl (Zofran) 4 mg IVPUSH ONETIME ONE Stop: 10/21/16 14:43 Last Admin: 10/21/16 14:49 Dose: Not Given Ondansetron HCl (Zofran) 4 mg IVPUSH ONETIME ONE Stop: 10/21/16 14:43 Last Admin: 10/21/16 15:22 Dose: 4 mg *Q Meaningful Use (DIS) - VTE *Q VTE Criteria *Q: - Stroke *Q Stroke Criteria *Q: - AMI *Q AMI Criteria *Q:
== END 2016-10-22 12:30 | disposition home or self-care (01) ==
LOC: MW.ED 13:19 → MW.MS 17:29
PROVIDERS: ADMIT Internal Medicine; ATTEND Internal Medicine
DX: R07.89 Other chest pain (principal); J44.9 Chronic obstructive pulmonary disease, unspecified; E11.65 Type 2 diabetes mellitus with hyperglycemia; M25.512 Pain in left shoulder; E83.51 Hypocalcemia; I25.2 Old myocardial infarction; I10 Essential (primary) hypertension; E78.00 Pure hypercholesterolemia, unspecified; K21.9 Gastro-esophageal reflux disease without esophagitis; M19.90 Unspecified osteoarthritis, unspecified site; F17.210 Nicotine dependence, cigarettes, uncomplicated; Z79.82 Long term (current) use of aspirin; Z79.4 Long term (current) use of insulin; Z79.84 Long term (current) use of oral hypoglycemic drugs; Z79.899 Other long term (current) drug therapy; Z88.1 Allergy status to other antibiotic agents; Z88.5 Allergy status to narcotic agent; Z95.5 Presence of coronary angioplasty implant and graft; Z98.890 Other specified postprocedural states; Z82.49 Family history of ischemic heart disease and other diseases of the circulatory system
CPT/HCPCS: 36415; 71020; 80048; 80053; 81001; 81025; 82150; 82962; 83036; 83690; 84484; 85025; 85610; 93005; 94640; 94664; 96361; 96372; 96374; 96375; 96376; 99285; A9270; G0378; J1650; J1815; J2270; J2405; J7040; 99283

== ENCOUNTER 2016-12-20 15:45 | Emergency (ER) | payer MEDICAID ==
[2016-12-20] MEDS ORDERED: Sodium Chloride 0.9% 1,000 ML IV ONE (15:50)
[2016-12-20] MEDS ORDERED: Sodium Chloride 0.9% 2.5 ML Syringe FLUSH PRN (15:50)
[2016-12-20] MEDS ORDERED: methylPREDNISolone Sodium Succinate 125 MG/2 ML SDV IVPUSH ONE (15:50)
[2016-12-20] MEDS ORDERED: Famotidine 20 MG/2 ML SDV IVPUSH ONE (15:50)
[2016-12-20] MEDS ORDERED: diphenhydrAMINE 50 MG/ML SDV IVPUSH ONE (15:50)
[2016-12-20] MEDS ORDERED: Sodium Chloride 0.9% 10 ML Syringe FLUSH PRN (15:50)
--- NOTE | 2016-12-20 15:55 | EDM.PDOC ---
ED HPI GENERAL MEDICAL PROBLEM - General Chief Complaint: Allergic Reaction Stated Complaint: AMBULANCE Time Seen by Provider: 12/20/16 15:46 - History of Present Illness INITIAL COMMENTS - FREE TEXT/NARRATIVE: HISTORY AND PHYSICAL: History of present illness: The patient is a 41-year-old female who presents with EMS with complaints of itching and hives that started last evening. The patient does not recall anything that would've triggered this but has had allergic reactions before and presents stating that it started last evening with just some mild itching and then she got up for work this morning and took a dose of Benadryl at a proximally 6 AM. She says that as the day went on she started getting more hives and itchiness and she felt like she was having some wheezing and EMS was called. On the scene police gave her an EpiPen as they were waiting for EMS to arrive. EMS gave her 25 of Benadryl IV. Patient said she was driving home and pulled over and that's when the police got involved. Currently she is feeling itchy but has no chest pain shortness of breath abdominal pain nausea or vomiting. She has no lip or tongue swelling. Patient is unsure of what could've triggered this. She does not recall any new foods or products in her life. Review of systems: As per history of present illness and below otherwise all systems reviewed and negative. Past medical history: As per history of present illness and as reviewed below otherwise noncontributory. Surgical history: As per history of present illness and as reviewed below otherwise noncontributory. Social history: No reported history of drug or alcohol abuse. Family history: As per history of present illness and as reviewed below otherwise noncontributory. Physical exam: General: Well-developed well-nourished female who is speaking clearly and easily in the ED of vital signs have been noted by me. HEENT: Atraumatic, normocephalic, pupils reactive, negative for conjunctival pallor or scleral icterus, mucous membranes moist, throat clear, neck supple, nontender, trachea midline. There is no oropharyngeal swelling tongue swelling or facial swelling appreciated Lungs: Clear to auscultation, breath sounds equal bilaterally, chest nontender. Heart: S1S2, regular, negative for clicks, rubs, or JVD. Abdomen: Soft, nondistended, nontender. Negative for masses or hepatosplenomegaly. NABS Pelvis: Stable nontender. Genitourinary: Deferred. Rectal: Deferred. Extremities: Atraumatic, negative for cords or calf pain. Neurovascular unremarkable. Neuro: Awake, alert, oriented. Cranial nerves II through XII unremarkable. Cerebellum unremarkable. Motor and sensory unremarkable throughout. Exam nonfocal. Skin: On the upper extremities and distal lower extremities as well as the face there is some pinkish erythema seen in the patient seems to be scratching. On her abdomen there are urticaria seen consistent with hives. There is nothing seen on her back. Diagnostics: [] Therapeutics: IV fluids Solu-Medrol Pepcid Benadryl, EMS only give 25 mg 2 I will give 25 mg as well. Impression: Urticaria/allergic reaction causative agent unclear stable Definitive disposition and diagnosis as appropriate pending reevaluation and review of above. - Related Data Allergies Allergy/AdvReac Type Severity Reaction Status Date / Time prednisone Allergy Mild Nausea Verified 12/20/16 15:49 doxycycline Allergy Hives Verified 12/20/16 15:49 Home Meds: Home Meds metFORMIN [Glucophage] 500 mg PO BID 06/21/13 [History] Fenofibrate [Fenoglide] 145 mg PO PCDINNER 05/08/14 [History] Omeprazole 20 cap PO DAILY 05/08/14 [History] Aspirin [Adele Chewable Aspirin] 81 mg PO DAILY 07/26/14 [History] Albuterol Sulfate [Proair Hfa] 2 puff INH QID PRN 03/04/15 [History] Budesonide/Formoterol [Symbicort 160-4.5 MCG] 2 puff INH BID PRN 03/04/15 [ History] Fluticasone Propionate [Flonase Allergy Relief] 1 spray EITAN ASDIRECTED PRN 03/04 [History] Metoprolol Succinate [Toprol XL] 25 mg PO BEDTIME 03/04/15 [History] Nitroglycerin [Nitrostat] 1 tab SL ASDIRECTED 03/04/15 [History] Diltiazem HCl [Diltiazem 24Hr ER] 180 mg PO BEDTIME 06/17/15 [History] Insulin Pump/Infus. Set/Meter [Accu-Chek Combo System] 1 dose PERCUT ASDIRECTED 09/06/15 [History] Lisinopril 5 mg PO DAILY 10/01/15 [History] Ondansetron HCl [Ondansetron] 8 mg PO ASDIRECTED PRN 10/01/15 [History] atorvaSTATin Calcium [Atorvastatin Calcium] 40 mg PO BEDTIME 10/01/15 [History] traMADol [Ultram] 1 tab PO QID PRN 10/12/15 [History] Albuterol [IJD: Albuterol HFA] 4 gm INH Q4H PRN #0 inhaler 10/22/16 [Rx] Calcium Carbonate [Tums] 1,000 mg PO DAILY #0 tab.chew 10/22/16 [Rx] Fluticasone/Salmeterol [Advair Diskus 250-50] 1 puff INH BID #0 inhaler [Rx] Insulin Aspart [NovoLOG] 0 unit SUBCUT ACBED #0 pen 10/22/16 [Rx] Insulin Glarg,Human.Rec.Analog [LantUS Solostar] 10 units SUBCUT BEDTIME #0 pen 10/22/16 [Rx] Past Medical History HEENT 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: Impaired Vision Other HEENT History: wears glasses, ear infection Cardiovascular 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: Angina, High Cholesterol, Hypertension, [place] Other Cardiovascular History: hx of [place] with cardiac stenting 1 year ago Respiratory 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: Asthma, Bronchitis, Recurrent, COPD Other Respiratory History: Tobacco dependence, COPD with Nebulizer treatments and inhaler, Hx of bronchitis annd pneumonia Gastrointestinal 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: GERD, Hiatal Hernia Other Gastrointestinal History: abd pain Genitourinary 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: None 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: Other OB/BYN History: Cyst in ovaries Musculoskeletal 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: Arthritis Other Musculoskeletal History: right foot and ankle Neurological 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: None Other Neuro History: hx: Headaches Psychiatric 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: None Endocrine/Metabolic 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: Diabetes, Type I, Obesity/BMI 30+ Hematologic 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: Anemia Immunologic 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: None Oncologic (Cancer) 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: None Dermatologic 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: None Other Dermatologic History: current rash on left arm - Infectious Disease History Infectious Disease 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: Chicken Pox, Measles - Past Surgical History Head Surgeries/Procedures: Reports: None HEENT Surgical 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: Myringotomy w Tube(s) Cardiovascular Surgical 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: Coronary Artery Stent Social & Family History - Family History Family Medical History: Noncontributory HEENT: Reports: Cataract, Impaired Vision, Otitis Media, Sinusitis Cardiac: Reports: High Cholesterol, Hypertension, [place] Other Cardiac Family History: heart problems maternal and paternal sides Respiratory: Reports: Asthma, COPD, Sleep Apnea GI: Reports: None Musculoskeletal: Reports: Arthritis, Gout Neurological: Reports: CVA Endocrine/Metabolic: Reports: Diabetes, Type I, Diabetes, type II, Hyperthyroidism, Obesity/MBI 30+ Hematologic: Reports: Anemia Oncologic: Reports: Lung - Tobacco Use Smoking Status *Q: Current Every Day Smoker Years of Tobacco use: 20 Packs/Tins Daily: 0.3 Used Tobacco, but Quit: Yes Month Tobacco Last Used: t Second Hand Smoke Exposure: Yes - Caffeine Use Caffeine Use: Reports: None - Alcohol Use Days Per Week of Alcohol Use: 0 - Recreational Drug Use Recreational Drug Use: No Drug Use in Last 12 Months: No ED ROS ALLERGIC REACTION - Review of Systems Review Of Systems: ROS reveals no pertinent complaints other than HPI. ED EXAM GENERAL NO PERIP PULSE - Physical Exam Exam: See Below (See dictation) Course - Orders/Labs/Meds Orders: Active Orders 24 hr Category Date Time Status Famotidine [Pepcid] Med 12/20/16 15:50 Once 20 mg IVPUSH ONETIME ONE Sodium Chloride 0.9% [Normal Saline] 1,000 ml Med 12/20/16 15:50 Ordered IV STAT Sodium Chloride 0.9% [Saline Flush] Med 12/20/16 15:50 Ordered 10 ml FLUSH ASDIRECTED PRN Sodium Chloride 0.9% [Saline Flush] Med 12/20/16 15:50 Ordered 2.5 ml FLUSH ASDIRECTED PRN diphenhydrAMINE [Benadryl] Med 12/20/16 15:50 Once 25 mg IVPUSH ONETIME ONE methylPREDNISolone Sod Succ [Solu-MEDROL] Med 12/20/16 15:50 Once 125 mg IVPUSH ONETIME ONE Saline Lock Insert [OM.PC] Stat Oth 12/20/16 15:50 Ordered Departure - Departure Time of Disposition: 15:53 Disposition: Home, Self-Care 01 Condition: Good Clinical Impression: Urticaria Allergic reaction Qualifiers: Encounter type: initial encounter Qualified Code(s): T78.40XA - Allergy, unspecified, initial encounter - Discharge Information Additional Instructions: The following information is given to patients seen in the emergency department who are being discharged to home. This information is to outline your options for follow-up care. We provide all patients seen in our emergency department with a follow-up referral. The need for follow-up, as well as the timing and circumstances, are variable depending upon the specifics of your emergency department visit. If you don't have a primary care physician on staff, we will provide you with a referral. We always advise you to contact your personal physician following an emergency department visit to inform them of the circumstance of the visit and for follow-up with them and/or the need for any referrals to a consulting specialist. The emergency department will also refer you to a specialist when appropriate. This referral assures that you have the opportunity for followup care with a specialist. All of these measure are taken in an effort to provide you with optimal care, which includes your followup. Under all circumstances we always encourage you to contact your private physician who remains a resource for coordinating your care. When calling for followup care, please make the office aware that this follow-up is from your recent emergency room visit. If for any reason you are refused follow-up, please contact the [facility] emergency department at and ask to speak to the emergency department charge nurse. [facility] Primary care- Internal Medicine and Family [address] [address] Please use Benadryl 50 mg every 6 hours for the next 24-36 hours without missing doses. He can use it every 6 hours as needed. Expect some drowsiness with this medication so plan appropriately. Please take Medrol pack you have been prescribed. His: Follow-up with your provider the next few days for reevaluation further care return to the ER as needed and as discussed. Please push hydration. - My Orders Last 24 Hours: My Active Orders 12/20/16 15:50 Famotidine [Pepcid] 20 mg IVPUSH ONETIME ONE Sodium Chloride 0.9% [Normal Saline] 1,000 ml IV STAT Sodium Chloride 0.9% [Saline Flush] 10 ml FLUSH ASDIRECTED PRN Sodium Chloride 0.9% [Saline Flush] 2.5 ml FLUSH ASDIRECTED PRN diphenhydrAMINE [Benadryl] 25 mg IVPUSH ONETIME ONE methylPREDNISolone Sod Succ [Solu-MEDROL] 125 mg IVPUSH ONETIME ONE Saline Lock Insert [OM.PC] Stat - Assessment/Plan Last 24 Hours: My Active Orders 12/20/16 15:50 Famotidine [Pepcid] 20 mg IVPUSH ONETIME ONE Sodium Chloride 0.9% [Normal Saline] 1,000 ml IV STAT Sodium Chloride 0.9% [Saline Flush] 10 ml FLUSH ASDIRECTED PRN Sodium Chloride 0.9% [Saline Flush] 2.5 ml FLUSH ASDIRECTED PRN diphenhydrAMINE [Benadryl] 25 mg IVPUSH ONETIME ONE methylPREDNISolone Sod Succ [Solu-MEDROL] 125 mg IVPUSH ONETIME ONE Saline Lock Insert [OM.PC] Stat
[2016-12-20 17:23] VITALS: BP 126/69
== END 2016-12-20 17:11 | disposition home or self-care (01) ==
LOC: MW.ED 15:45
DX: L50.0 Allergic urticaria (principal); F17.210 Nicotine dependence, cigarettes, uncomplicated; I10 Essential (primary) hypertension; I25.2 Old myocardial infarction; J45.909 Unspecified asthma, uncomplicated; M19.90 Unspecified osteoarthritis, unspecified site; E10.9 Type 1 diabetes mellitus without complications; E66.9 Obesity, unspecified; Z96.22 Myringotomy tube(s) status; Z95.5 Presence of coronary angioplasty implant and graft; Z79.4 Long term (current) use of insulin; Z79.82 Long term (current) use of aspirin; Z79.899 Other long term (current) drug therapy; Z88.1 Allergy status to other antibiotic agents; Z88.8 Allergy status to other drugs, medicaments and biological substances
CPT/HCPCS: 93005; 96361; 96374; 96375; 99285; J1200; J2930; J7040; 99283

== ENCOUNTER 2016-12-21 16:13 | Emergency (ER) | payer MEDICAID ==
[2016-12-21] MEDS ORDERED: Sodium Chloride 0.9% 10 ML Syringe FLUSH PRN (16:27)
[2016-12-21] MEDS ORDERED: Sodium Chloride 0.9% 2.5 ML Syringe FLUSH PRN (16:27)
[2016-12-21] MEDS ORDERED: Ondansetron 4 MG/2 ML SDV IVPUSH ONE (16:28)
[2016-12-21] MEDS ORDERED: Morphine 10 MG/ML Syringe IV ONE (16:28)
--- NOTE | 2016-12-21 16:29 | EDM.PDOC ---
ED HPI GENERAL MEDICAL PROBLEM - General Chief Complaint: Respiratory Problem Stated Complaint: SHORTNESS OF BREATH Time Seen by Provider: 12/21/16 16:23 - History of Present Illness INITIAL COMMENTS - FREE TEXT/NARRATIVE: HISTORY AND PHYSICAL: []41-year-old female presenting with shortness of breath she was seen in the ED yesterday for allergic reaction History of Present Illness: []Patient became short of breath and is itching all over today Review of Systems: As per history of present illness and below otherwise all systems reviewed and negative. Past medical history: As per history of present illness and as reviewed below otherwise noncontributory. Surgical history: As per history of present illness and as reviewed below otherwise noncontributory. Social history: No reported history of drug or alcohol abuse. Family history: As per history of present illness and as reviewed below otherwise noncontributory. Physical exam: Alert and oriented speaking in full sentences without any shortness of breath notable. she is nontoxic in appearance.. HEENT: Atraumatic, normocehpalic, pupils reactive, negative for conjunctival pallor or scleral icterus, mucous membranes moist, throat clear, neck supple, nontender, trachea midline. HEENT is all clear tympanic membranes throat has no erythema. Lungs: Clear to auscultation, breath sounds equal bilaterally, chest non tender. tightness to the bases . Heart: S1S2, regular, negative for clicks, rubs, or JVD. Abdomen: Soft, nondistended, nontender. Negative for masses or hepatossplenmegaly. Negative for costovertebral tenderness. Pelvis: Stable nontender. Genitourinary: Deferred. Rectal: Deferred Extremities: Atraumatic, negative for cords or calf pain. Neurovascular unremarkable. Neuro: Awake, alert, oriented. Cranial nerves II through XII unremarkable. Cerebellum unremarkable. Motor and sensory unremarkable throughout. Exam nonfocal. Diagnostics: []CBC CMP d-dimer and chest x-ray flat and upright abdomen x-ray Therapeutics: [1 L normal saline Toradol Zofran GI cocktail Impression: [Epigastric pain] Hyperglycemia Plan: []Discharged to home Benadryl every 4 hours 50 mg Follow-up in the clinic Improved with IV fluids Definitive disposition and diagnosis as appropriate pending reevaluation and review of above. Right Chest Pain Score (Numeric/FACES): 10 - Related Data Allergies Allergy/AdvReac Type Severity Reaction Status Date / Time prednisone Allergy Mild Nausea Verified 12/21/16 16:21 doxycycline Allergy Hives Verified 12/21/16 16:21 Home Meds: Home Meds metFORMIN [Glucophage] 500 mg PO BID 06/21/13 [History] Fenofibrate [Fenoglide] 145 mg PO PCDINNER 05/08/14 [History] Omeprazole 20 cap PO DAILY 05/08/14 [History] Aspirin [Adeel Chewable Aspirin] 81 mg PO DAILY 07/26/14 [History] Albuterol Sulfate [Proair Hfa] 2 puff INH QID PRN 03/04/15 [History] Budesonide/Formoterol [Symbicort 160-4.5 MCG] 2 puff INH BID PRN 03/04/15 [ History] Fluticasone Propionate [Flonase Allergy Relief] 1 spray EITAN ASDIRECTED PRN 03/04 [History] Metoprolol Succinate [Toprol XL] 25 mg PO BEDTIME 03/04/15 [History] Nitroglycerin [Nitrostat] 1 tab SL ASDIRECTED 03/04/15 [History] Diltiazem HCl [Diltiazem 24Hr ER] 180 mg PO BEDTIME 06/17/15 [History] Insulin Pump/Infus. Set/Meter [Accu-Chek Combo System] 1 dose PERCUT ASDIRECTED 09/06/15 [History] Lisinopril 5 mg PO DAILY 10/01/15 [History] Ondansetron HCl [Ondansetron] 8 mg PO ASDIRECTED PRN 10/01/15 [History] atorvaSTATin Calcium [Atorvastatin Calcium] 40 mg PO BEDTIME 10/01/15 [History] traMADol [Ultram] 1 tab PO QID PRN 10/12/15 [History] Albuterol [IJD: Albuterol HFA] 4 gm INH Q4H PRN #0 inhaler 10/22/16 [Rx] Calcium Carbonate [Tums] 1,000 mg PO DAILY #0 tab.chew 10/22/16 [Rx] Fluticasone/Salmeterol [Advair Diskus 250-50] 1 puff INH BID #0 inhaler [Rx] Insulin Aspart [NovoLOG] 0 unit SUBCUT ACBED #0 pen 10/22/16 [Rx] Insulin Glarg,Human.Rec.Analog [LantUS Solostar] 10 units SUBCUT BEDTIME #0 pen 10/22/16 [Rx] Past Medical History HEENT 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: Impaired Vision Other HEENT History: wears glasses, ear infection Cardiovascular 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: Angina, High Cholesterol, Hypertension, [place] Other Cardiovascular History: hx of [place] with cardiac stenting 1 year ago Respiratory 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: Asthma, Bronchitis, Recurrent, COPD Other Respiratory History: Tobacco dependence, COPD with Nebulizer treatments and inhaler, Hx of bronchitis annd pneumonia Gastrointestinal 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: GERD, Hiatal Hernia Other Gastrointestinal History: abd pain Genitourinary 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: None [employer] 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: Other OB/BYN History: Cyst in ovaries Musculoskeletal 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: Arthritis Other Musculoskeletal History: right foot and ankle Neurological 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: None Other Neuro History: hx: Headaches Psychiatric 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: None Endocrine/Metabolic 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: Diabetes, Type I, Obesity/BMI 30+ Hematologic 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: Anemia Immunologic 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: None Oncologic (Cancer) 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: None Dermatologic 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: None Other Dermatologic History: current rash on left arm - Infectious Disease History Infectious Disease 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: Chicken Pox, Measles - Past Surgical History Head Surgeries/Procedures: Reports: None HEENT Surgical 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: Myringotomy w Tube(s) Cardiovascular Surgical 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: Coronary Artery Stent Social & Family History - Family History Family Medical History: Noncontributory HEENT: Reports: Cataract, Impaired Vision, Otitis Media, Sinusitis Cardiac: Reports: High Cholesterol, Hypertension, [place] Other Cardiac Family History: heart problems maternal and paternal sides Respiratory: Reports: Asthma, COPD, Sleep Apnea GI: Reports: None Musculoskeletal: Reports: Arthritis, Gout Neurological: Reports: CVA Endocrine/Metabolic: Reports: Diabetes, Type I, Diabetes, type II, Hyperthyroidism, Obesity/MBI 30+ Hematologic: Reports: Anemia Oncologic: Reports: Lung - Tobacco Use Smoking Status *Q: Current Every Day Smoker Years of Tobacco use: 20 Packs/Tins Daily: 0.3 Used Tobacco, but Quit: Yes Month Tobacco Last Used: t Second Hand Smoke Exposure: Yes - Caffeine Use Caffeine Use: Reports: None - Alcohol Use Days Per Week of Alcohol Use: 0 - Recreational Drug Use Recreational Drug Use: No Drug Use in Last 12 Months: No ED ROS GENERAL - Review of Systems Review Of Systems: ROS reveals no pertinent complaints other than HPI. ED EXAM, GENERAL - Physical Exam Exam: See Below (see dictation) Course - Vital Signs Last Recorded V/S: Last Vital Signs Temp 36.9 C 12/21/16 17:43 Pulse 79 12/21/16 18:25 Resp 18 12/21/16 18:25 BP 156/92 H 12/21/16 18:25 Pulse Ox 99 12/21/16 18:25 - Orders/Labs/Meds Orders: Active Orders 24 hr Category Date Time Status Blood Glucose Check, Bedside [RC] ONETIME Care 12/21/16 18:26 Active RT Aerosol Therapy [RC] ASDIRECTED Care 12/21/16 16:36 Active Abdomen 2V AP Flat Upright [CR] Stat Exams 12/21/16 16:28 Taken Chest 2V [CR] Stat Exams 12/21/16 16:27 Taken Sodium Chloride 0.9% [Saline Flush] Med 12/21/16 16:27 Active 10 ml FLUSH ASDIRECTED PRN Sodium Chloride 0.9% [Saline Flush] Med 12/21/16 16:27 Active 2.5 ml FLUSH ASDIRECTED PRN Saline Lock Insert [OM.PC] Stat Oth 12/21/16 16:27 Ordered Medication Orders Sodium Chloride (Saline Flush) 10 ml FLUSH ASDIRECTED PRN PRN Reason: Keep Vein Open Last Admin: 12/21/16 16:44 Dose: 10 ml Sodium Chloride (Saline Flush) 2.5 ml FLUSH ASDIRECTED PRN PRN Reason: Keep Vein Open Last Admin: 12/21/16 16:44 Dose: 2.5 ml Labs: Laboratory Tests 12/21/16 12/21/16 12/21/16 Range/Units 16:18 16:18 16:18 WBC 13.25 H (4.0-11.0) K/uL RBC 5.83 (4.30-5.90) M/uL Hgb 14.7 (12.0-16.0) g/dL Hct 43.9 (36.0-46.0) % MCV 75.3 L (80.0-98.0) fL MCH 25.2 L (27.0-32.0) pg MCHC 33.5 (31.0-37.0) g/dL RDW Std Deviation 43.4 (28.0-62.0) fl RDW Coeff of Demond 16 H (11.0-15.0) % Plt Count 254 (150-400) K/uL MPV 10.70 (7.40-12.00) fL Neut % (Auto) 67.7 (48.0-80.0) % Lymph % (Auto) 26.2 (16.0-40.0) % [place] % (Auto) 5.7 (0.0-15.0) % Eos % (Auto) 0.2 (0.0-7.0) % Baso % (Auto) 0.2 (0.0-1.5) % Neut # (Auto) 9.0 H (1.4-5.7) K/uL Lymph # (Auto) 3.5 H (0.6-2.4) K/uL [place] # (Auto) 0.8 (0.0-0.8) K/uL Eos # (Auto) 0.0 (0.0-0.7) K/uL Baso # (Auto) 0.0 (0.0-0.1) K/uL Nucleated RBC % 0.0 /100WBC Nucleated RBCs # 0 K/uL D-Dimer, Quantitative 0.79 H (0.0-0.52) mg/LFEU Sodium 134 L (136-146) mmol/L Potassium 3.3 L (3.5-5.1) mmol/L Chloride 104 (98-110) mmol/L Carbon Dioxide 19 L (21-31) mmol/L BUN 14 (6.0-23.0) mg/dL Creatinine 1.1 (0.6-1.5) mg/dL Est Cr Clr Drug Dosing 57.53 mL/min Estimated GFR (MDRD) 54.5 ml/min Glucose 394 H (60-110) mg/dL POC Glucose (60-110) mg/dL Calcium 9.8 (8.8-10.8) mg/dL Total Bilirubin 0.5 (0.1-1.5) mg/dL AST 14 (5-40) IU/L ALT 15 (8-54) IU/L Alkaline Phosphatase 110 (40-150) Total Protein 7.6 (6.0-8.0) g/dL Albumin 3.9 (3.5-5.0) g/dL Globulin 3.7 H (2.0-3.5) g/dL Albumin/Globulin Ratio 1.1 L (1.3-2.8) 12/21/16 Range/Units 19:14 WBC (4.0-11.0) K/uL RBC (4.30-5.90) M/uL Hgb (12.0-16.0) g/dL Hct (36.0-46.0) % MCV (80.0-98.0) fL MCH (27.0-32.0) pg MCHC (31.0-37.0) g/dL RDW Std Deviation (28.0-62.0) fl RDW Coeff of Demond (11.0-15.0) % Plt Count (150-400) K/uL MPV (7.40-12.00) fL Neut % (Auto) (48.0-80.0) % Lymph % (Auto) (16.0-40.0) % [place] % (Auto) (0.0-15.0) % Eos % (Auto) (0.0-7.0) % Baso % (Auto) (0.0-1.5) % Neut # (Auto) (1.4-5.7) K/uL Lymph # (Auto) (0.6-2.4) K/uL [place] # (Auto) (0.0-0.8) K/uL Eos # (Auto) (0.0-0.7) K/uL Baso # (Auto) (0.0-0.1) K/uL Nucleated RBC % /100WBC Nucleated RBCs # K/uL D-Dimer, Quantitative (0.0-0.52) mg/LFEU Sodium (136-146) mmol/L Potassium (3.5-5.1) mmol/L Chloride (98-110) mmol/L Carbon Dioxide (21-31) mmol/L BUN (6.0-23.0) mg/dL Creatinine (0.6-1.5) mg/dL Est Cr Clr Drug Dosing mL/min Estimated GFR (MDRD) ml/min Glucose (60-110) mg/dL POC Glucose 238 H (60-110) mg/dL Calcium (8.8-10.8) mg/dL Total Bilirubin (0.1-1.5) mg/dL AST (5-40) IU/L ALT (8-54) IU/L Alkaline Phosphatase (40-150) Total Protein (6.0-8.0) g/dL Albumin (3.5-5.0) g/dL Globulin (2.0-3.5) g/dL Albumin/Globulin Ratio (1.3-2.8) Meds: Medications Generic Name Dose Route Start Last Admin Trade Name Freq PRN Reason Stop Dose Admin Sodium Chloride 10 ml 12/21/16 16:27 12/21/16 16:44 Saline Flush FLUSH 10 ml ASDIRECTED PRN Administration Keep Vein Open Sodium Chloride 2.5 ml 12/21/16 16:27 12/21/16 16:44 Saline Flush FLUSH 2.5 ml ASDIRECTED PRN Administration Keep Vein Open Discontinued Medications Generic Name Dose Route Start Last Admin Trade Name Freq PRN Reason Stop Dose Admin Albuterol/Ipratropium 3 ml 12/21/16 16:36 12/21/16 16:45 Duoneb 3.0-0.5 Mg/3 Ml NEB 12/21/16 16:37 3 ml ONETIME ONE Administration Al Hydroxide/Mg Hydroxide 15 0 ml 12/21/16 18:07 12/21/16 18:15 ml/ Lidocaine HCl 5 ml PO 12/21/16 18:08 20 each ONETIME ONE Administration Diphenhydramine HCl 25 mg 12/21/16 16:38 12/21/16 16:44 Benadryl IVPUSH 12/21/16 16:39 25 mg ONETIME ONE Administration Sodium Chloride 1,000 mls @ 999 mls/hr 12/21/16 18:09 12/21/16 18:15 Normal Saline IV 12/21/16 19:09 999 mls/hr STAT ONE Administration Insulin Human Regular 10 unit 12/21/16 18:09 12/21/16 18:17 Novolin R IVPUSH 12/21/16 18:10 10 units ONETIME ONE Administration Protocol Ketorolac Tromethamine 30 mg 12/21/16 18:09 12/21/16 18:16 Toradol IVPUSH 12/21/16 18:10 30 mg ONETIME ONE Administration Morphine Sulfate 2 mg 12/21/16 16:28 12/21/16 16:45 Morphine IV 12/21/16 16:29 2 mg ONETIME ONE Administration Ondansetron HCl 4 mg 12/21/16 16:28 12/21/16 16:44 Zofran IVPUSH 12/21/16 16:29 4 mg ONETIME ONE Administration Departure - Departure Time of Disposition: 19:44 Disposition: Home, Self-Care 01 Condition: Good Clinical Impression: Abdominal pain - Discharge Information Instructions: Smoking Cessation, Tips for Success, [id number] Referrals: PCP,None [Primary Care Provider] - Forms: ED Department Discharge Additional Instructions: The following information is given to patients seen in the emergency department who are being discharged to home. This information is to outline your options for follow-up care. We provide all patients seen in our emergency department with a follow-up referral. The need for follow-up, as well as the timing and circumstances, are variable depending upon the specifics of your emergency department visit. If you don't have a primary care physician on staff, we will provide you with a referral. We always advise you to contact your personal physician following an emergency department visit to inform them of the circumstance of the visit and for follow-up with them and/or the need for any referrals to a consulting specialist. The emergency department will also refer you to a specialist when appropriate. This referral assures that you have the opportunity for followup care with a specialist. All of these measure are taken in an effort to provide you with optimal care, which includes your followup. Under all circumstances we always encourage you to contact your private physician who remains a resource for coordinating your care. When calling for followup care, please make the office aware that this follow-up is from your recent emergency room visit. If for any reason you are refused follow-up, please contact the [facility] emergency department at and asked to speak to the emergency department charge nurse. Your nausea and vomiting was controlled by the Zofran you received while in the emergency department You're abdominal pain was likely caused by gas You do have Zofran at home that you can take 3 times a day for the nausea Call tomorrow morning and obtain a clinic visit to see your provider for follow- up care - My Orders Last 24 Hours: My Active Orders 12/21/16 16:27 Chest 2V [CR] Stat Sodium Chloride 0.9% [Saline Flush] 10 ml FLUSH ASDIRECTED PRN Sodium Chloride 0.9% [Saline Flush] 2.5 ml FLUSH ASDIRECTED PRN Saline Lock Insert [OM.PC] Stat 12/21/16 16:28 Abdomen 2V AP Flat Upright [CR] Stat 12/21/16 16:36 RT Aerosol Therapy [RC] ASDIRECTED 12/21/16 18:26 Blood Glucose Check, Bedside [RC] ONETIME - Assessment/Plan Last 24 Hours: My Active Orders 12/21/16 16:27 Chest 2V [CR] Stat Sodium Chloride 0.9% [Saline Flush] 10 ml FLUSH ASDIRECTED PRN Sodium Chloride 0.9% [Saline Flush] 2.5 ml FLUSH ASDIRECTED PRN Saline Lock Insert [OM.PC] Stat 12/21/16 16:28 Abdomen 2V AP Flat Upright [CR] Stat 12/21/16 16:36 RT Aerosol Therapy [RC] ASDIRECTED 12/21/16 18:26 Blood Glucose Check, Bedside [RC] ONETIME
[2016-12-21] MEDS ORDERED: Albuterol/Ipratropium 3.0-0.5 MG/3 ML Neb Soln NEB ONE (16:36)
[2016-12-21] MEDS ORDERED: diphenhydrAMINE 50 MG/ML SDV IVPUSH ONE (16:38)
[2016-12-21] MEDS ORDERED: Alum Hydrox/Mag Hydrox/Simeth 15 ML, Lidocaine 2% 5 ML PO ONE ×2 (18:07)
[2016-12-21] MEDS ORDERED: Ketorolac 30 MG/ML SDV IVPUSH ONE (18:09)
[2016-12-21] MEDS ORDERED: Insulin Regular, Human 100 Units/ML 10 ML Vial IVPUSH ONE (18:09)
[2016-12-21] MEDS ORDERED: Sodium Chloride 0.9% 1,000 ML IV ONE (18:09)
[2016-12-21 18:33] VITALS: BP 156/92
--- NOTE | 2016-12-22 10:23 | CR ---
EXAM DATE: 12/21/16 PATIENT'S AGE: 41 Patient: PARADISE BURGOS Facility: [place], [place] Site . Site : 1975 Study: XRay Abdomen Flat and Upright [id number]/2017 5:28:59 PM Ordering Physician: Doctor Abdullahi Final Report: INDICATION: PAIN TECHNIQUE: Abdomen 4 view COMPARISON: None FINDINGS: Bowel: Nonobstructive bowel gas pattern. Soft tissues: Surgical clips in the right upper quadrant. Bilateral Essure devices in place. No sign of soft tissue mass. No suspicious calcifications. Bones: Unremarkable for age. IMPRESSION: Nonobstructive bowel gas pattern. . Dictated by Dariel Burkett MD @ 12/21/2016 5:44:41 PM Dictated by: Dariel Burkett MD @ 12/21/2016 17:44:52 (Electronic Signature) Report Signed by Proxy. JULY
--- NOTE | 2016-12-22 10:24 | CR ---
EXAM DATE: 12/21/16 PATIENT'S AGE: 41 Patient: PARADISE BURGOS Facility: [place], [place] Site . Site : 1975 Study: XRay Chest [id number]/2017 5:30:06 PM Ordering Physician: Doctor Abdullahi Final Report: INDICATION: PAIN/SOB TECHNIQUE: Chest 2 views COMPARISON: October 21, 2016 FINDINGS: Cardiovascular and mediastinum: Heart size and vasculature are normal in caliber and appearance. Mediastinum is within normal limits. Lungs and pleural spaces: No focal consolidation. No sign of pleural effusion. No pneumothorax. Bones and soft tissues: No significant findings. IMPRESSION: No acute cardiopulmonary disease. Dictated by Dariel Burkett MD @ 12/21/2016 5:49:40 PM Dictated by: Dariel Burkett MD @ 12/21/2016 17:49:50 (Electronic Signature) Report Signed by Proxy. [facility]
== END 2016-12-21 20:05 | disposition home or self-care (01) ==
LOC: MW.ED 16:13
DX: R10.13 Epigastric pain (principal); D64.9 Anemia, unspecified; E66.9 Obesity, unspecified; F17.210 Nicotine dependence, cigarettes, uncomplicated; Z95.5 Presence of coronary angioplasty implant and graft; E78.00 Pure hypercholesterolemia, unspecified; I10 Essential (primary) hypertension; I25.2 Old myocardial infarction; J44.9 Chronic obstructive pulmonary disease, unspecified; K21.9 Gastro-esophageal reflux disease without esophagitis; M19.90 Unspecified osteoarthritis, unspecified site; E10.65 Type 1 diabetes mellitus with hyperglycemia; Z88.5 Allergy status to narcotic agent; Z88.1 Allergy status to other antibiotic agents; Z79.84 Long term (current) use of oral hypoglycemic drugs; Z79.899 Other long term (current) drug therapy
CPT/HCPCS: 36415; 71020; 74020; 80053; 82962; 85025; 85379; 94640; 96361; 96374; 96375; 99285; A9270; J1200; J1885; J2270; J2405; J7040; 99284; J1815-GY

== ENCOUNTER 2016-12-26 02:04 | Inpatient (IN) | payer MEDICAID ==
[2016-12-26] MEDS ORDERED: Sodium Chloride 0.9% 2.5 ML Syringe FLUSH PRN (02:29)
[2016-12-26] MEDS ORDERED: Sodium Chloride 0.9% 10 ML Syringe FLUSH PRN (02:29)
[2016-12-26] MEDS ORDERED: Sodium Chloride 0.9% 1,000 ML IV SCH ×3 (02:30→04:00)
[2016-12-26] MEDS ORDERED: Albuterol/Ipratropium 3.0-0.5 MG/3 ML Neb Soln NEB ONE ×2 (02:30→03:18)
[2016-12-26] MEDS ORDERED: methylPREDNISolone Sodium Succinate 125 MG/2 ML SDV IVPUSH ONE (02:31)
[2016-12-26] MEDS ORDERED: Pantoprazole 40 MG in Sodium Chloride 0.9% 10 ML IVPUSH ONE (02:31)
[2016-12-26] MEDS ORDERED: Ondansetron 4 MG/2 ML SDV IVPUSH ONE ×2 (02:31→05:02)
--- NOTE | 2016-12-26 02:39 | EDM.PDOC ---
ED HPI GENERAL MEDICAL PROBLEM - General Chief Complaint: Respiratory Problem Stated Complaint: SHORTNESS OF BREATH Time Seen by Provider: 12/26/16 02:22 - History of Present Illness INITIAL COMMENTS - FREE TEXT/NARRATIVE: HISTORY AND PHYSICAL: History of present illness: The patient is a 41-year-old female who is a long-standing history here both in the ER and with admissions for COPD ACS, UT with stents, diabetes hypertension urticaria and medication noncompliance; she was last admitted here October 21 through the for COPD chest pain hyperglycemia and medication noncompliance and presented here on December 20 for an allergic reaction that had been ongoing for almost 24 hours. I saw her personally and she did have urticaria/hives and she was treated with Benadryl Pepcid and steroids--on that visit she never complained of shortness of breath and she was not wheezing. She was discharged home on steroids even though she said that prednisone tends to make her more itchy. She returned the next day with similar symptoms saying that she still had the rash and she was still itchy and now she was short of breath. On that admission she did not tell us that she was short of breath for 2 weeks which she is now stating to me now. She was treated with x-rays labs and she presented on that visit to the ER more of epigastric discomfort and GI dyspepsia along with the urticaria and shortness of breath. She followed up in the clinic with her provider on December 23 and had a venous Doppler of her leg which was negative. She says that she was given steroids by her provider in the clinic and does not recall that I gave her prescription for steroids 2 days previously. She is unsure if she filled that. She now complains to me specifically of 2 weeks of cough difficulty breathing and now for the last 3 days she has had nausea and vomiting and so she can eat or drink anything. She has no abdominal pain and does not complain of chest pain per se. The cough is nonproductive and she has not had a fever documented but she says she has felt hot. She tells me she has been compliant with her medications and lasted a nebulizer treatment approximately 3-4 hours ago but as she is unsure of prescriptions that she has been given over the last few days it is unclear the validity of this statement. I asked the patient about the urticarial rash and she tells me that it is much improved and she has stopped taking the Benadryl. Review of systems: As per history of present illness and below otherwise all systems reviewed and negative. Past medical history: As per history of present illness and as reviewed below otherwise noncontributory. Surgical history: As per history of present illness and as reviewed below otherwise noncontributory. Social history: No reported history of drug or alcohol abuse. Family history: As per history of present illness and as reviewed below otherwise noncontributory. Physical exam: Gen.: Well-developed well-nourished female who seems to have some visible work of breathing but is not breathless on my evaluation. Vital signs of been reviewed by me. HEENT: Atraumatic, normocephalic, pupils reactive, negative for conjunctival pallor or scleral icterus, mucous membranes moist, throat clear, neck supple, nontender, trachea midline. Lungs: Tight air exchange shot all calz[place] and return expiratory wheezing with abdominal work of breathing, there is no stridor, breath sounds equal bilaterally, chest nontender. Heart: S1S2, regular, negative for clicks, rubs, or JVD. Abdomen: Soft, nondistended, nontender. Negative for masses or hepatosplenomegaly. Negative for costovertebral tenderness. Pelvis: Stable nontender. Genitourinary: Deferred. Rectal: Deferred. Extremities: Atraumatic, negative for cords or calf pain. Neurovascular unremarkable. No pedal edema or leg asymmetry Neuro: Awake, alert, oriented. Cranial nerves II through XII unremarkable. Cerebellum unremarkable. Motor and sensory unremarkable throughout. Exam nonfocal. Skin: No diaphoresis normal turgor, no evidence of urticaria is seen Diagnostics: EKG chest x-ray CBC CMP troponin serum ketones Therapeutics: IV O2 monitor IV fluids duo neb Solu-Medrol insulin On reevaluation the patient is still having coarse wheezing bilaterally but has better air exchange and she overall looks improved. Her sats on 2-3 L are 94% and she has diminished work of breathing. I discussed with her the testing results and the care plan of admission to the hospital as this is her third ER visit in a week. I will add serum ketones to her blood work and she tells me that even without eating for the last few days her sugar has been as high as the 500s. She said she used to use an insulin pump but she has issues with that and she is currently taking insulin dosing and states compliance. She tells nursing that on her long list of medications the only medication she is taking his insulin her inhalers aspirin and all the other medications she is supposed to take she is not taking due to insurance purposes. Again it is unclear if she is taking the steroids that she was prescribed by me and Dr. Valdovinos. 0333: Case was discussed with our hospitalist Dr. Lynch; he agrees to admission and request telemetry. He is aware that I added serum ketones to her labs and will follow that result of. Impression: COPD exacerbation, hyperglycemia with history of diabetes, probable medication noncompliance, history of recent urticaria resolved Definitive disposition and diagnosis as appropriate pending reevaluation and review of above. Generalized Pain Score (Numeric/FACES): 5 - Related Data Allergies Allergy/AdvReac Type Severity Reaction Status Date / Time prednisone Allergy Mild Nausea Verified 12/21/16 16:21 doxycycline Allergy Hives Verified 12/21/16 16:21 Home Meds: Home Meds Omeprazole 20 cap PO DAILY 05/08/14 [History] Aspirin [Adeel Chewable Aspirin] 81 mg PO DAILY 07/26/14 [History] Budesonide/Formoterol [Symbicort 160-4.5 MCG] 2 puff INH BID PRN 03/04/15 [ History] Fluticasone Propionate [Flonase Allergy Relief] 1 spray EITAN ASDIRECTED PRN 03/04 [History] Nitroglycerin [Nitrostat] 1 tab SL ASDIRECTED PRN 03/04/15 [History] Ondansetron HCl [Ondansetron] 8 mg PO ASDIRECTED PRN 10/01/15 [History] traMADol [Ultram] 1 tab PO QID PRN 10/12/15 [History] Albuterol [IJD: Albuterol HFA] 4 gm INH Q4H PRN #0 inhaler 10/22/16 [Rx] Calcium Carbonate [Tums] 1,000 mg PO DAILY #0 tab.chew 10/22/16 [Rx] Fluticasone/Salmeterol [Advair Diskus 250-50] 1 puff INH BID #0 inhaler [Rx] Insulin Aspart [NovoLOG] 0 unit SUBCUT ACBED #0 pen 10/22/16 [Rx] Insulin Glarg,Human.Rec.Analog [LantUS Solostar] 10 units SUBCUT BEDTIME #0 pen 10/22/16 [Rx] Past Medical History HEENT 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: Impaired Vision Other HEENT History: wears glasses, ear infection Cardiovascular 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: Angina, High Cholesterol, Hypertension, UT Other Cardiovascular History: hx of UT with cardiac stenting 1 year ago Respiratory 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: Asthma, Bronchitis, Recurrent, COPD Other Respiratory History: Tobacco dependence, COPD with Nebulizer treatments and inhaler, Hx of bronchitis annd pneumonia Gastrointestinal 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: GERD, Hiatal Hernia Other Gastrointestinal History: abd pain Genitourinary 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: None [employer] SUR[employer]ON 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: Other OB/BYN History: Cyst in ovaries Musculoskeletal 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: Arthritis Other Musculoskeletal History: right foot and ankle Neurological 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: Other (See Below) Other Neuro History: hx: Headaches Psychiatric 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: None Endocrine/Metabolic 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: Diabetes, Type I, Obesity/BMI 30+ Hematologic 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: Anemia Immunologic 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: None Oncologic (Cancer) 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: None Dermatologic 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: None Other Dermatologic History: current rash on left arm - Infectious Disease History Infectious Disease 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: Chicken Pox, Measles - Past Surgical History Head Surgeries/Procedures: Reports: None HEENT Surgical 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: Myringotomy w Tube(s) Cardiovascular Surgical 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: Coronary Artery Stent Social & Family History - Family History Family Medical History: Noncontributory HEENT: Reports: Cataract, Impaired Vision, Otitis Media, Sinusitis Cardiac: Reports: High Cholesterol, Hypertension, UT Other Cardiac Family History: heart problems maternal and paternal sides Respiratory: Reports: Asthma, COPD, Sleep Apnea GI: Reports: None Musculoskeletal: Reports: Arthritis, Gout Neurological: Reports: CVA Endocrine/Metabolic: Reports: Diabetes, Type I, Diabetes, type II, Hyperthyroidism, Obesity/MBI 30+ Hematologic: Reports: Anemia Oncologic: Reports: Lung - Tobacco Use Smoking Status *Q: Former Smoker Years of Tobacco use: 20 Packs/Tins Daily: 0.3 Used Tobacco, but Quit: Yes Month Tobacco Last Used: states quit 2 wks ago Second Hand Smoke Exposure: Yes - Caffeine Use Caffeine Use: Reports: Coffee - Alcohol Use Days Per Week of Alcohol Use: 0 - Recreational Drug Use Recreational Drug Use: No Drug Use in Last 12 Months: No ED ROS GENERAL - Review of Systems Review Of Systems: ROS reveals no pertinent complaints other than HPI. ED EXAM, GENERAL - Physical Exam Exam: See Below (See dictation) Course - Vital Signs Last Recorded V/S: Last Vital Signs Temp 36.7 C 12/26/16 02:12 Pulse 96 12/26/16 02:54 Resp 20 12/26/16 02:54 BP 137/80 12/26/16 02:54 Pulse Ox 97 12/26/16 02:54 - Orders/Labs/Meds Orders: Active Orders 24 hr Category Date Time Status Patient Status [ADT] Stat ADT 12/26/16 03:32 Ordered Cardiac Monitoring [RC] . DIRECTED Care 12/26/16 02:28 Active EKG Documentation Completion [RC] STAT Care 12/26/16 02:28 Active Oxygen Therapy, ED [RC] ASDIRECTED Care 12/26/16 02:28 Active Pulse Oximetry [RC] ASDIRECTED Care 12/26/16 02:28 Active RT Aerosol Therapy [RC] ASDIRECTED Care 12/26/16 02:30 Active RT Aerosol Therapy [RC] ASDIRECTED Care 12/26/16 03:18 Active Chest 1V Frontal [CR] Stat Exams 12/26/16 02:29 Taken Sodium Chloride 0.9% [Normal Saline] 1,000 ml Med 12/26/16 02:30 Active IV ASDIRECTED Sodium Chloride 0.9% [Saline Flush] Med 12/26/16 02:29 Active 10 ml FLUSH ASDIRECTED PRN Sodium Chloride 0.9% [Saline Flush] Med 12/26/16 02:29 Active 2.5 ml FLUSH ASDIRECTED PRN Saline Lock Insert [OM.PC] Stat Oth 12/26/16 02:28 Ordered Medication Orders Sodium Chloride (Normal Saline) 1,000 mls @ 125 mls/hr IV ASDIRECTED TIFFAINE Last Admin: 12/26/16 02:45 Dose: 125 mls/hr Sodium Chloride (Saline Flush) 10 ml FLUSH ASDIRECTED PRN PRN Reason: Keep Vein Open Last Admin: 12/26/16 02:48 Dose: 10 ml Sodium Chloride (Saline Flush) 2.5 ml FLUSH ASDIRECTED PRN PRN Reason: Keep Vein Open Last Admin: 12/26/16 02:48 Dose: 2.5 ml Labs: Laboratory Tests 12/26/16 12/26/16 12/26/16 Range/Units 02:38 02:38 02:38 WBC 9.05 (4.0-11.0) K/uL RBC 5.79 (4.30-5.90) M/uL Hgb 14.5 (12.0-16.0) g/dL Hct 43.7 (36.0-46.0) % MCV 75.5 L (80.0-98.0) fL MCH 25.0 L (27.0-32.0) pg MCHC 33.2 (31.0-37.0) g/dL RDW Std Deviation 42.6 (28.0-62.0) fl RDW Coeff of Demond 16 H (11.0-15.0) % Plt Count 283 (150-400) K/uL MPV 10.50 (7.40-12.00) fL Neut % (Auto) 63.0 (48.0-80.0) % Lymph % (Auto) 26.2 (16.0-40.0) % Bent % (Auto) 8.8 (0.0-15.0) % Eos % (Auto) 1.9 (0.0-7.0) % Baso % (Auto) 0.1 (0.0-1.5) % Neut # (Auto) 5.7 (1.4-5.7) K/uL Lymph # (Auto) 2.4 (0.6-2.4) K/uL Bent # (Auto) 0.8 (0.0-0.8) K/uL Eos # (Auto) 0.2 (0.0-0.7) K/uL Baso # (Auto) 0.0 (0.0-0.1) K/uL Nucleated RBC % 0.0 /100WBC Nucleated RBCs # 0 K/uL Sodium 134 L (136-146) mmol/L Potassium 3.6 (3.5-5.1) mmol/L Chloride 102 (98-110) mmol/L Carbon Dioxide 16 L (21-31) mmol/L BUN 17 (6.0-23.0) mg/dL Creatinine 0.8 (0.6-1.5) mg/dL Est Cr Clr Drug Dosing 79.11 mL/min Estimated GFR (MDRD) > 60.0 ml/min Glucose 356 H (60-110) mg/dL Calcium 8.8 (8.8-10.8) mg/dL Total Bilirubin 0.4 (0.1-1.5) mg/dL AST 29 (5-40) IU/L ALT 20 (8-54) IU/L Alkaline Phosphatase 70 (40-150) Troponin I < 0.10 (0.0-0.29) NG/ML Total Protein 6.5 (6.0-8.0) g/dL Albumin 3.6 (3.5-5.0) g/dL Globulin 2.9 (2.0-3.5) g/dL Albumin/Globulin Ratio 1.2 L (1.3-2.8) Ketones (NEG) 12/26/16 Range/Units 02:38 WBC (4.0-11.0) K/uL RBC (4.30-5.90) M/uL Hgb (12.0-16.0) g/dL Hct (36.0-46.0) % MCV (80.0-98.0) fL MCH (27.0-32.0) pg MCHC (31.0-37.0) g/dL RDW Std Deviation (28.0-62.0) fl RDW Coeff of Demond (11.0-15.0) % Plt Count (150-400) K/uL MPV (7.40-12.00) fL Neut % (Auto) (48.0-80.0) % Lymph % (Auto) (16.0-40.0) % Bent % (Auto) (0.0-15.0) % Eos % (Auto) (0.0-7.0) % Baso % (Auto) (0.0-1.5) % Neut # (Auto) (1.4-5.7) K/uL Lymph # (Auto) (0.6-2.4) K/uL Bent # (Auto) (0.0-0.8) K/uL Eos # (Auto) (0.0-0.7) K/uL Baso # (Auto) (0.0-0.1) K/uL Nucleated RBC % /100WBC Nucleated RBCs # K/uL Sodium (136-146) mmol/L Potassium (3.5-5.1) mmol/L Chloride (98-110) mmol/L Carbon Dioxide (21-31) mmol/L BUN (6.0-23.0) mg/dL Creatinine (0.6-1.5) mg/dL Est Cr Clr Drug Dosing mL/min Estimated GFR (MDRD) ml/min Glucose (60-110) mg/dL Calcium (8.8-10.8) mg/dL Total Bilirubin (0.1-1.5) mg/dL AST (5-40) IU/L ALT (8-54) IU/L Alkaline Phosphatase (40-150) Troponin I (0.0-0.29) NG/ML Total Protein (6.0-8.0) g/dL Albumin (3.5-5.0) g/dL Globulin (2.0-3.5) g/dL Albumin/Globulin Ratio (1.3-2.8) Ketones MODERATE H (NEG) Meds: Medications Generic Name Dose Route Start Last Admin Trade Name Freq PRN Reason Stop Dose Admin Sodium Chloride 1,000 mls @ 125 mls/hr 12/26/16 02:30 12/26/16 02:45 Normal Saline IV 125 mls/hr ASDIRECTED TIFFANIE Administration Sodium Chloride 10 ml 12/26/16 02:29 12/26/16 02:48 Saline Flush FLUSH 10 ml ASDIRECTED PRN Administration Keep Vein Open Sodium Chloride 2.5 ml 12/26/16 02:29 12/26/16 02:48 Saline Flush FLUSH 2.5 ml ASDIRECTED PRN Administration Keep Vein Open Discontinued Medications Generic Name Dose Route Start Last Admin Trade Name Freq PRN Reason Stop Dose Admin Albuterol/Ipratropium 3 ml 12/26/16 02:30 12/26/16 02:45 Duoneb 3.0-0.5 Mg/3 Ml NEB 12/26/16 02:31 3 ml ONETIME ONE Administration Albuterol/Ipratropium 3 ml 12/26/16 03:18 12/26/16 03:32 Duoneb 3.0-0.5 Mg/3 Ml NEB 12/26/16 03:19 3 ml ONETIME ONE Administration Pantoprazole Sodium 40 mg/ 10 mls @ 300 mls/hr 12/26/16 02:31 12/26/16 02:49 Sodium Chloride IVPUSH 12/26/16 02:32 300 mls/hr NOW ONE Administration Insulin Human Regular 15 unit 12/26/16 03:23 Novolin R SUBCUT 12/26/16 03:24 ONETIME ONE Protocol Methylprednisolone Sodium Succinate 125 mg 12/26/16 02:31 12/26/16 02:48 Solu-Medrol IVPUSH 12/26/16 02:32 125 mg ONETIME ONE Administration Ondansetron HCl 4 mg 12/26/16 02:31 12/26/16 02:46 Zofran IVPUSH 12/26/16 02:32 4 mg ONETIME ONE Administration Departure - Departure Time of Disposition: 03:36 Disposition: Refer to Observation Condition: Fair Clinical Impression: COPD with exacerbation, Noncompliance with medication regimen, Hyperglycemia - Discharge Information Referrals: Nicholas Peterson MD [Primary Care Provider] - Forms: ED Department Discharge - My Orders Last 24 Hours: My Active Orders 12/26/16 02:28 Cardiac Monitoring [RC] . DIRECTED EKG Documentation Completion [RC] STAT Oxygen Therapy, ED [RC] ASDIRECTED Pulse Oximetry [RC] ASDIRECTED Saline Lock Insert [OM.PC] Stat 12/26/16 02:29 Chest 1V Frontal [CR] Stat Sodium Chloride 0.9% [Saline Flush] 10 ml FLUSH ASDIRECTED PRN Sodium Chloride 0.9% [Saline Flush] 2.5 ml FLUSH ASDIRECTED PRN 12/26/16 02:30 RT Aerosol Therapy [RC] ASDIRECTED Sodium Chloride 0.9% [Normal Saline] 1,000 ml IV ASDIRECTED 12/26/16 03:18 RT Aerosol Therapy [RC] ASDIRECTED 12/26/16 03:32 Patient Status [ADT] Stat - Assessment/Plan Last 24 Hours: My Active Orders 12/26/16 02:28 Cardiac Monitoring [RC] . DIRECTED EKG Documentation Completion [RC] STAT Oxygen Therapy, ED [RC] ASDIRECTED Pulse Oximetry [RC] ASDIRECTED Saline Lock Insert [OM.PC] Stat 12/26/16 02:29 Chest 1V Frontal [CR] Stat Sodium Chloride 0.9% [Saline Flush] 10 ml FLUSH ASDIRECTED PRN Sodium Chloride 0.9% [Saline Flush] 2.5 ml FLUSH ASDIRECTED PRN 12/26/16 02:30 RT Aerosol Therapy [RC] ASDIRECTED Sodium Chloride 0.9% [Normal Saline] 1,000 ml IV ASDIRECTED 12/26/16 03:18 RT Aerosol Therapy [RC] ASDIRECTED 12/26/16 03:32 Patient Status [ADT] Stat
[2016-12-26 03:07] LABS: CHLORIDE,CL 102 mmol/L (98-110); SODIUM,NA 134 mmol/L (136-146)
[2016-12-26] MEDS ORDERED: Insulin Regular, Human 100 Units/ML 10 ML Vial SUBCUT ONE (03:23)
[2016-12-26] MEDS ORDERED: cefTRIAXone 1 GM in Premix Bag 1 BAG IV SCH (04:00)
[2016-12-26] MEDS ORDERED: cefTRIAXone 1,000 MG in Sodium Chloride 0.9% 50 ML IV SCH (04:15)
[2016-12-26] MEDS ORDERED: Acetaminophen 325 MG Tab PO PRN (04:19)
[2016-12-26] MEDS ORDERED: Ondansetron 4 MG/2 ML SDV IVPUSH PRN (04:19)
[2016-12-26] MEDS ORDERED: Prochlorperazine 25 MG Supp RECTAL PRN (04:59)
[2016-12-26] MEDS: HYDROmorphone 1 MG/ML Syringe IVPUSH PRN ×2 (05:24→11:11)
[2016-12-26] MEDS: Albuterol/Ipratropium 3.0-0.5 MG/3 ML Neb Soln NEB SCH ×2 (06:48→10:30)
[2016-12-26] MEDS ORDERED: Insulin Aspart 100 Units/ML 3 ML Pen SUBCUT SCH (07:30)
[2016-12-26 09:40] LABS: CHLORIDE,CL 106 mmol/L (98-110); SODIUM,NA 136 mmol/L (136-146)
--- NOTE | 2016-12-26 10:49 | PCM.HP ---
<Lakeisha Peterson M - Last Filed: 12/26/16 10:43> H&P History of Present Illness - General Date of Service: 12/26/16 - History of Present Illness Initial Comments - Free Text/Narative: This 41 year old female with pmh of AL x 3 yrs ago with stenting, non- compliance with medications for COPD, DM type 2, HTN and dyslipidemia presented to the ED early this am with concerns of SOB and worsening urticaria from previous allergic reaction. She also reports she was nauseated and unable to keep food down. She denied chest pain, palpitations or abdominal pain. She has had no diarrhea or other concerns. In talking with her this morning her biggest complaint was R leg pain, it is sharp shooting in nature, constant. This start approximately 5 days ago, she was seen by her PCP on Monday because she noticed her toes turning purple and blueish in color. On Monday in the clinic venous doppler to R leg was obtained, No DVT but noted to have minimal arterial flow within the region of the popliteal artery. This morning upon assessment she is very tender to touch from knee down, no erythema , foot is cold to touch, no pulses are palpable and no pulse heard via doppler to pedal to posterior tibial regions. Cap refill is 6 seconds, tips of all toes noted to be cyanotic, she reports peripheral neuropathy, but pain to toes and leg are constant and a sharp shooting sensation. She has been given Dilaudid which has done little for pain. In the ED she was given Solumedrol and Rocephin for COPD exacerbation. CXR was negative. Telemetry has been ST to SR. There was concern regarding DKA in the ED due to positive ketones. This morning bicarb improved with hydration and BS have lowered to 220-250s. Generalized Pain Score (Numeric/FACES): 5 - Related Data Allergies/Adverse Reactions: Allergies Allergy/AdvReac Type Severity Reaction Status Date / Time prednisone Allergy Mild Nausea Verified 12/21/16 16:21 doxycycline Allergy Hives Verified 12/21/16 16:21 Home Medications: Home Meds Omeprazole 20 cap PO DAILY 05/08/14 [History] Aspirin [Adeel Chewable Aspirin] 81 mg PO DAILY 07/26/14 [History] Budesonide/Formoterol [Symbicort 160-4.5 MCG] 2 puff INH BID PRN 03/04/15 [ History] Fluticasone Propionate [Flonase Allergy Relief] 1 spray EITAN ASDIRECTED PRN 03/04 [History] Nitroglycerin [Nitrostat] 1 tab SL ASDIRECTED PRN 03/04/15 [History] Ondansetron HCl [Ondansetron] 8 mg PO ASDIRECTED PRN 10/01/15 [History] traMADol [Ultram] 1 tab PO QID PRN 10/12/15 [History] Albuterol [IJD: Albuterol HFA] 4 gm INH Q4H PRN #0 inhaler 10/22/16 [Rx] Calcium Carbonate [Tums] 1,000 mg PO DAILY #0 tab.chew 10/22/16 [Rx] Fluticasone/Salmeterol [Advair Diskus 250-50] 1 puff INH BID #0 inhaler [Rx] Insulin Aspart [NovoLOG] 0 unit SUBCUT ACBED #0 pen 10/22/16 [Rx] Insulin Glarg,Human.Rec.Analog [LantUS Solostar] 10 units SUBCUT BEDTIME #0 pen 10/22/16 [Rx] Past Medical History HEENT 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: Impaired Vision Other HEENT History: wears glasses, ear infection Cardiovascular 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: Angina, High Cholesterol, Hypertension, AL Other Cardiovascular History: hx of AL with cardiac stenting 1 year ago Respiratory 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: Asthma, Bronchitis, Recurrent, COPD, Pneumonia, Recurrent Other Respiratory History: Tobacco dependence, COPD with Nebulizer treatments and inhaler, Hx of bronchitis annd pneumonia Gastrointestinal 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: GERD, Hiatal Hernia Other Gastrointestinal History: abd pain Genitourinary 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: None PROPELLER TESTER 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: Other OB/BYN History: Cyst in ovaries Musculoskeletal 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: Arthritis Other Musculoskeletal History: right foot and ankle Neurological 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: Other (See Below) Other Neuro History: hx: Headaches Psychiatric 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: None Endocrine/Metabolic 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: Diabetes, Type II, Obesity/BMI 30+ Hematologic 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: Anemia Immunologic 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: None Oncologic (Cancer) 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: None Dermatologic 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: None, Urticaria Other Dermatologic History: current rash on left arm - Infectious Disease History Infectious Disease 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: Chicken Pox, Measles - Past Surgical History Head Surgeries/Procedures: Reports: None HEENT Surgical 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: Myringotomy w Tube(s) Cardiovascular Surgical 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: Coronary Artery Stent GI Surgical 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: Cholecystectomy Social & Family History - Family History Family Medical History: Noncontributory HEENT: Reports: Cataract, Impaired Vision, Otitis Media, Sinusitis Cardiac: Reports: High Cholesterol, Hypertension, AL Other Cardiac Family History: heart problems maternal and paternal sides Respiratory: Reports: Asthma, COPD, Sleep Apnea GI: Reports: None Musculoskeletal: Reports: Arthritis, Gout Neurological: Reports: CVA Endocrine/Metabolic: Reports: Diabetes, Type I, Diabetes, type II, Hyperthyroidism, Obesity/MBI 30+ Hematologic: Reports: Anemia Oncologic: Reports: Lung - Tobacco Use Smoking Status *Q: Former Smoker (quit 2 weeks ago.) Years of Tobacco use: 20 Packs/Tins Daily: 1 Used Tobacco, but Quit: Yes Month Tobacco Last Used: 12/11/16 Second Hand Smoke Exposure: No - Caffeine Use Caffeine Use: Reports: Soda - Alcohol Use Days Per Week of Alcohol Use: 0 - Recreational Drug Use Recreational Drug Use: No Drug Use in Last 12 Months: No H&P Review of Systems - Review of Systems: Review Of Systems: See Below General: Reports: No Symptoms. Denies: Fever, Chills, Malaise HEENT: Reports: No Symptoms. Denies: Headaches, Hearing Changes, Visual Changes Pulmonary: Reports: Shortness of Breath (improved this morning), Wheezing (no longer this am.) Cardiovascular: Reports: No Symptoms, Other (pain to R leg, cool to touch and purple toes). Denies: Chest Pain, Edema, Lightheadedness Gastrointestinal: Reports: Flatus, Nausea. Denies: Abdominal Pain, Black Stool , Bloody Stool, Distension, Vomiting Skin: Reports: Cyanosis (Tips of all toes to R foot), Urticaria (improved, was all over body) Hematologic/Lymphatic: Reports: No Symptoms Immunologic: Reports: No Symptoms Exam - Exam Exam: See Below - Vital Signs Vital Signs: Last Vital Signs Temp 97.8 F 12/26/16 09:43 Pulse 100 12/26/16 09:43 Resp 16 12/26/16 09:43 BP 120/68 12/26/16 09:43 Pulse Ox 96 12/26/16 09:43 Weight: 79.4 kg - Exam Quality Assessment: No: Supplemental Oxygen General: Alert, Oriented, Cooperative HEENT: Conjunctiva Clear, Mucosa Moist & [place], Nares Patent, Posterior Pharynx Clear, Pupils Reactive Neck: Supple, Trachea Midline, 2 Lungs: Normal Respiratory Effort, Rhonchi (scattered throughout, sparse). No: Decreased Breath Sounds, Wheezing Cardiovascular: Regular Rate, Regular Rhythm, Normal S1, Normal S2. No: Systolic Murmur Back Exam: Normal Inspection, Full Range of Motion, NT Extremities: Slow Capillary Refill (6 seconds to R leg), Leg Pain, Pallor, Other (R leg cool to touch, ) Peripheral Pulses: 0: Posterior Tibial (R), Dorsalis Pedis (R), 2+: Posterior Tibial (L), Dorsalis Pedis (L) Skin: Cool (R foot and lower leg) Neuro Extensive - Mental Status: Alert, Oriented x3, Normal Mood/Affect Psychiatric: Alert, Normal Affect, Normal Mood - Patient Data Lab Results Last 24 hrs: Laboratory Results - last 24 hr 12/26/16 12/26/16 12/26/16 Range/Units 03:58 06:05 08:45 Sodium 136 (136-146) mmol/L Potassium 3.7 (3.5-5.1) mmol/L Chloride 106 (98-110) mmol/L Carbon Dioxide 19 L (21-31) mmol/L BUN 15 (6.0-23.0) mg/dL Creatinine 0.7 (0.6-1.5) mg/dL Est Cr Clr Drug Dosing 91.06 mL/min Estimated GFR (MDRD) > 60.0 ml/min Glucose 253 H (60-110) mg/dL POC Glucose 227 H (60-110) mg/dL Calcium 8.2 L (8.8-10.8) mg/dL ALT 19 (8-54) IU/L Urine Color DARK YELLOW Urine Appearance CLOUDY Urine pH 6.0 (5.0-8.0) Ur Specific [place] 1.025 (1.001-1.035) Urine Protein TRACE (NEGATIVE) mg/dL Urine Glucose (UA) 500 H (NEGATIVE) mg/dL Urine Ketones 40 H (NEGATIVE) mg/dL Urine Occult Blood LARGE H (NEGATIVE) Urine Nitrite NEGATIVE (NEGATIVE) Urine Bilirubin MODERATE H (NEGATIVE) Urine Ictotest NEGATIVE Urine Urobilinogen 0.2 (<2.0) EU/dL Ur Leukocyte Esterase NEGATIVE (NEGATIVE) Urine RBC 400-500 (0-2/HPF) Urine WBC 1-3 (0-5/HPF) Ur Epithelial Cells RARE (NONE-FEW) Urine Bacteria FEW (NEGATIVE) Result Diagrams: 12/26/16 02:38 12/26/16 08:45 *Q Meaningful Use (ADM) - VTE *Q VTE Criteria *Q: - Stroke *Q Stroke Criteria *Q: - AMI *Q AMI Criteria *Q: - Problem List (1) Arterial vascular disease SNOMED Code(s): 97386078 ICD Code: I70.90 - UNSPECIFIED ATHEROSCLEROSIS Status: Acute (2) COPD exacerbation SNOMED Code(s): 370619661 ICD Code: J44.1 - CHRONIC OBSTRUCTIVE PULMONARY DISEASE W (ACUTE) EXACERBATION Status: Acute (3) Noncompliance with medication regimen SNOMED Code(s): 278950779 ICD Code: Z91.14 - PATIENT'S OTHER NONCOMPLIANCE WITH MEDICATION REGIMEN Status: Chronic (4) Allergic reaction SNOMED Code(s): 364016805 ICD Code: T78.40XA - ALLERGY, UNSPECIFIED, INITIAL ENCOUNTER Status: Acute QualifierTitle: Encounter type: initial encounter Qualified Code(s): T78.40XA - Allergy, unspecified, initial encounter Problem List Initiated/Reviewed/Updated: Yes Orders Last 24hrs: Active Orders 24 hr Category Date Time Status Accu Check [Blood Glucose Check, Bedside] [] Care 12/26/16 07:30 Active QIDACANDBED Bedrest Bathroom Privileges [RC] ASDIRECTED Care 12/26/16 04:14 Inactive Overnight Pulse Oximetry [RC] Click to Edit Care 12/26/16 04:13 Active RT Aerosol Therapy [RC] ASDIRECTED Care 12/26/16 04:01 Active Up ad Emily [RC] ASDIRECTED Care 12/26/16 04:16 Active No Concentrated Sweet Diet [DIET] Diet 12/26/16 Breakfast Active Acetaminophen [Tylenol] Med 12/26/16 04:19 Active 650 mg PO Q6H PRN Albuterol/Ipratropium [DuoNeb 3.0-0.5 MG/3 ML] Med 12/26/16 06:00 Active 3 ml NEB Q4HRRT HYDROmorphone [Dilaudid] Med 12/26/16 05:01 Active 1 mg IVPUSH Q2H PRN Insulin Aspart [NovoLOG] Med 12/26/16 07:30 Active See Protocol SUBCUT QIDACANDBED Ondansetron [Zofran] Med 12/26/16 04:19 Active 4 mg IVPUSH Q4H PRN Prochlorperazine [Compro] Med 12/26/16 04:59 Active 25 mg RECTAL Q12HR PRN Sodium Chloride 0.9% [Normal Saline] 1,000 ml Med 12/26/16 04:00 Active IV ASDIRECTED cefTRIAXone [Rocephin in Dextrose,Iso-Osm 1 GM/50 ML] 1 Med 12/26/16 04:00 Active gm Premix Bag 1 bag IV Q24H methylPREDNISolone Sod Succ [Solu-MEDROL] Med 12/27/16 02:00 Active 125 mg IVPUSH DAILY Pulse Oximetry Continuous Monitoring [OM.PC] Routine Oth 12/26/16 04:13 Ordered Medication Orders Acetaminophen (Tylenol) 650 mg PO Q6H PRN PRN Reason: Pain Last Admin: 12/26/16 04:38 Dose: 650 mg Albuterol/Ipratropium (Duoneb 3.0-0.5 Mg/3 Ml) 3 ml NEB Q4HRRT [facility] Last Admin: 12/26/16 10:30 Dose: 3 ml Admin: 12/26/16 06:48 Dose: 3 ml Hydromorphone HCl (Dilaudid) 1 mg IVPUSH Q2H PRN PRN Reason: Pain Last Admin: 12/26/16 05:24 Dose: 1 mg Sodium Chloride (Normal Saline) 1,000 mls @ 75 mls/hr IV ASDIRECTED TIFFANEI Ceftriaxone Sodium/Dextrose 1 (gm/ Premix) 50 mls @ 100 mls/hr IV Q24H [facility] Last Admin: 12/26/16 04:39 Dose: 100 mls/hr Insulin Aspart (Novolog) 0 unit SUBCUT QIDACANDBED TIFFANIE PRN Reason: Protocol Last Admin: 12/26/16 06:43 Dose: 4 units Methylprednisolone Sodium Succinate (Solu-Medrol) 125 mg IVPUSH DAILY [facility] Ondansetron HCl (Zofran) 4 mg IVPUSH Q4H PRN PRN Reason: Nausea/Vomiting Prochlorperazine Maleate (Compro) 25 mg RECTAL Q12HR PRN PRN Reason: Nausea/Vomiting Last Admin: 12/26/16 06:42 Dose: 25 mg Sodium Chloride (Saline Flush) 10 ml FLUSH ASDIRECTED PRN PRN Reason: Keep Vein Open Last Admin: 12/26/16 02:48 Dose: 10 ml Sodium Chloride (Saline Flush) 2.5 ml FLUSH ASDIRECTED PRN PRN Reason: Keep Vein Open Last Admin: 12/26/16 02:48 Dose: 2.5 ml Assessment/Plan Comment:: This 41 year old female initially admitted for COPD exacerbation and allergic reaction DISCHARGE PLAN: Transfer to [facility]. Dr. Lynch and I were made aware by patient her severe R leg pain, upon assessment as stated before R foot and leg cool to touch with no palpable pulses and no pulses to dorsalis pedis or posterior tibial able to be dopplered. In discussion with patient and Dr Lynch, the decision was made for acute transfer via helicopter due to immediate need for evaluation by vascular surgeon. I contacted [facility], spoke with Dr. Kitchen Hospitalist initially, but requested I speak with vascular surgeon first and Hospitalists could consult for medical management. The [employer]aster, Alex, then spoke with vascular surgeon, who requested I speak with ED physician to get transfer going and the vascular team would see her then. Dr. Fatima, ED MD accepted acute transfer of patient at this time. Oralia was updated on this and continues to agree on transfer at this time. She is in stable condition, not requiring oxygen and is hemodynamically stable. <Con Lynch - Last Filed: 12/26/16 20:17> Exam - Vital Signs Vital Signs: Last Vital Signs Temp 36.8 C 12/26/16 11:00 Pulse 101 H 12/26/16 11:00 Resp 18 12/26/16 11:00 BP 111/70 12/26/16 11:00 Pulse Ox 97 12/26/16 11:00 - Patient Data Lab Results Last 24 hrs: Laboratory Results - last 24 hr 12/26/16 12/26/16 12/26/16 Range/Units 03:58 06:05 08:45 Sodium 136 (136-146) mmol/L Potassium 3.7 (3.5-5.1) mmol/L Chloride 106 (98-110) mmol/L Carbon Dioxide 19 L (21-31) mmol/L BUN 15 (6.0-23.0) mg/dL Creatinine 0.7 (0.6-1.5) mg/dL Est Cr Clr Drug Dosing 91.06 mL/min Estimated GFR (MDRD) > 60.0 ml/min Glucose 253 H (60-110) mg/dL POC Glucose 227 H (60-110) mg/dL Calcium 8.2 L (8.8-10.8) mg/dL ALT 19 (8-54) IU/L Urine Color DARK YELLOW Urine Appearance CLOUDY Urine pH 6.0 (5.0-8.0) Ur Specific [place] 1.025 (1.001-1.035) Urine Protein TRACE (NEGATIVE) mg/dL Urine Glucose (UA) 500 H (NEGATIVE) mg/dL Urine Ketones 40 H (NEGATIVE) mg/dL Urine Occult Blood LARGE H (NEGATIVE) Urine Nitrite NEGATIVE (NEGATIVE) Urine Bilirubin MODERATE H (NEGATIVE) Urine Ictotest NEGATIVE Urine Urobilinogen 0.2 (<2.0) EU/dL Ur Leukocyte Esterase NEGATIVE (NEGATIVE) Urine RBC 400-500 (0-2/HPF) Urine WBC 1-3 (0-5/HPF) Ur Epithelial Cells RARE (NONE-FEW) Urine Bacteria FEW (NEGATIVE) 12/26/16 Range/Units 11:03 Sodium (136-146) mmol/L Potassium (3.5-5.1) mmol/L Chloride (98-110) mmol/L Carbon Dioxide (21-31) mmol/L BUN (6.0-23.0) mg/dL Creatinine (0.6-1.5) mg/dL Est Cr Clr Drug Dosing mL/min Estimated GFR (MDRD) ml/min Glucose (60-110) mg/dL POC Glucose 289 H (60-110) mg/dL Calcium (8.8-10.8) mg/dL ALT (8-54) IU/L Urine Color Urine Appearance Urine pH (5.0-8.0) Ur Specific [place] (1.001-1.035) Urine Protein (NEGATIVE) mg/dL Urine Glucose (UA) (NEGATIVE) mg/dL Urine Ketones (NEGATIVE) mg/dL Urine Occult Blood (NEGATIVE) Urine Nitrite (NEGATIVE) Urine Bilirubin (NEGATIVE) Urine Ictotest Urine Urobilinogen (<2.0) EU/dL Ur Leukocyte Esterase (NEGATIVE) Urine RBC (0-2/HPF) Urine WBC (0-5/HPF) Ur Epithelial Cells (NONE-FEW) Urine Bacteria (NEGATIVE) Result Diagrams: 12/26/16 02:38 12/26/16 08:45 *Q Meaningful Use (ADM) - VTE *Q VTE Criteria *Q: - Stroke *Q Stroke Criteria *Q: - AMI *Q AMI Criteria *Q: Orders Last 24hrs: Active Orders 24 hr Category Date Time Status Accu Check [Blood Glucose Check, Bedside] [RC] Care 12/26/16 07:30 Active QIDACANDBED Bedrest Bathroom Privileges [RC] ASDIRECTED Care 12/26/16 04:14 Inactive Overnight Pulse Oximetry [RC] Click to Edit Care 12/26/16 04:13 Active RT Aerosol Therapy [RC] ASDIRECTED Care 12/26/16 04:01 Active Ready for Discharge [RC] PER UNIT ROUTINE Care 12/26/16 11:52 Active Stock Taker Discontinue [Cardiac Monitoring Care 12/26/16 11:54 Active Discontinue] [RC] Click to Edit Up ad Emily [RC] ASDIRECTED Care 12/26/16 04:16 Active Pulse Oximetry Continuous Monitoring [OM.PC] Routine Oth 12/26/16 04:13 Ordered - Free Text/Narrative Note: Patient is examined and discussed with Lakeisha VELASQUEZ at length. She needs transfer to a vascular surgeon JOSE JUAN. This is arranged and performed, going to [facility].
[2016-12-26 11:53] VITALS: BP 111/70
--- NOTE | 2016-12-26 14:41 | CR ---
EXAM DATE: 12/26/16 PATIENT'S AGE: 41 Patient: PARADISE BURGOS Facility: [place], [place] Site . Site : [id number] Study: XRay Chest [id number]/[id number] 2:58:38 AM Ordering Physician: Adrian Clark Final Report: INDICATION: Pain. Short of breath. TECHNIQUE: Chest 1 view. COMPARISON: 12/21/2016. FINDINGS: No pneumothorax or pleural effusion. Lungs are clear. Cardiac and mediastinal contours are within normal limits. Upper abdomen and osseous structures as imaged show no acute abnormality. IMPRESSION: No acute cardiopulmonary disease. Dictated by: Vignesh Garza MD @ 12/26/2016 03:03:17 (Electronic Signature) Report Signed by Proxy. [facility]ITALDulce
[2016-12-27] MEDS ORDERED: methylPREDNISolone Sodium Succinate 125 MG/2 ML SDV IVPUSH SCH (02:00)
== END 2016-12-26 10:40 | DRG 192 ==
LOC: MW.ED 02:04 → MW.MS 03:32 → OBSVTOIN 03:48
PROVIDERS: ADMIT Family Medicine; ATTEND Family Medicine
DX: J44.1 Chronic obstructive pulmonary disease with (acute) exacerbation (principal); T78.40XA Allergy, unspecified, initial encounter; E10.65 Type 1 diabetes mellitus with hyperglycemia; M79.604 Pain in right leg; Z88.1 Allergy status to other antibiotic agents; E78.00 Pure hypercholesterolemia, unspecified; Z79.82 Long term (current) use of aspirin; I10 Essential (primary) hypertension; K21.9 Gastro-esophageal reflux disease without esophagitis; E11.65 Type 2 diabetes mellitus with hyperglycemia; E78.5 Hyperlipidemia, unspecified; I25.2 Old myocardial infarction; Z91.14 Patient's other noncompliance with medication regimen; K44.9 Diaphragmatic hernia without obstruction or gangrene; M19.90 Unspecified osteoarthritis, unspecified site; E66.9 Obesity, unspecified; Z68.30 Body mass index [BMI] 30.0-30.9, adult; D64.9 Anemia, unspecified; Z79.4 Long term (current) use of insulin; I70.90 Unspecified atherosclerosis; Z95.5 Presence of coronary angioplasty implant and graft; Z88.8 Allergy status to other drugs, medicaments and biological substances; Z79.899 Other long term (current) drug therapy; Z87.891 Personal history of nicotine dependence
CPT/HCPCS: 71010; 80053; 82009; 82962; 84484; 85025; 96361; 96374; 96375; 99285; C9113; J2405; J2930; J7040; 80048; 81001; 84460; 93005; 94640; 99283; A9270-GY; J0696; J1170; J1815-GY ×2

== ENCOUNTER 2017-01-21 20:04 | Emergency (ER) | payer MEDICAID ==
--- NOTE | 2017-01-21 22:52 | EDM.PDOC ---
<Beto Aranad - Last Filed: 01/21/17 22:43> ED HPI GENERAL MEDICAL PROBLEM - General Chief Complaint: Lower Extremity Injury/Pain Stated Complaint: FOOT PAIN Time Seen by Provider: 01/21/17 22:46 Source of Information: Reports: Patient History Limitations: Reports: No Limitations - History of Present Illness INITIAL COMMENTS - FREE TEXT/NARRATIVE: History of present illness: [41-year-old female coming in with concern of left swollen leg. 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 Past medical history: As per history of present illness and as reviewed below otherwise noncontributory. Surgical history: As per history of present illness and as reviewed below otherwise noncontributory. Social history: No reported history of drug or alcohol abuse. Family history: As per history of present illness and as reviewed below otherwise noncontributory. Physical exam: HEENT: Atraumatic, normocephalic, pupils reactive, negative for conjunctival pallor or scleral icterus, mucous membranes moist, throat clear, neck supple, nontender, trachea midline. Lungs: Clear to auscultation, breath sounds equal bilaterally, chest nontender. Heart: S1S2, regular, negative for clicks, rubs, or JVD. Abdomen: Soft, nondistended, nontender. Negative for masses or hepatosplenomegaly. Negative for costovertebral tenderness. Pelvis: Stable nontender. Genitourinary: Deferred. Rectal: Deferred. Extremities: Right lower extremity absent with stump sock noted on a BKA. Left lower extremity noted to have generalized edema with some amount of skin tightness and tenderness to palpation. Neuro: Awake, alert, oriented. Cranial nerves II through XII unremarkable. Cerebellum unremarkable. Motor and sensory unremarkable throughout. Exam nonfocal. Diagnostics: [Venous Doppler of left lower 70] Therapeutics: [] Impression: [] Plan: [] Definitive disposition and diagnosis as appropriate pending reevaluation and review of above. Left Leg Pain Score (Numeric/FACES): 4 - Related Data Allergies Allergy/AdvReac Type Severity Reaction Status Date / Time prednisone Allergy Mild Nausea Verified 01/21/17 20:23 doxycycline Allergy Hives Verified 01/21/17 20:23 Home Meds: Home Meds Aspirin [Adeel Chewable Aspirin] 81 mg PO DAILY 07/26/14 [History] Budesonide/Formoterol [Symbicort 160-4.5 MCG] 2 puff INH BID PRN 03/04/15 [ History] Fluticasone Propionate [Flonase Allergy Relief] 1 spray EITAN ASDIRECTED PRN 03/04 [History] Nitroglycerin [Nitrostat] 1 tab SL ASDIRECTED PRN 03/04/15 [History] Ondansetron HCl [Ondansetron] 8 mg PO ASDIRECTED PRN 10/01/15 [History] traMADol [Ultram] 1 tab PO QID PRN 10/12/15 [History] Albuterol [IJD: Albuterol HFA] 4 gm INH Q4H PRN #0 inhaler 10/22/16 [Rx] Calcium Carbonate [Tums] 1,000 mg PO DAILY #0 tab.chew 10/22/16 [Rx] Fluticasone/Salmeterol [Advair Diskus 250-50] 1 puff INH BID #0 inhaler [Rx] Insulin Aspart [NovoLOG] 0 unit SUBCUT ACBED #0 pen 10/22/16 [Rx] Apixaban [Eliquis] 5 mg PO DAILY 01/21/17 [History] Gabapentin [Neurontin] 600 mg PO DAILY 01/21/17 [History] Insulin Detemir [Levemir] 30 units SQ BEDTIME 01/21/17 [History] Pantoprazole [ProTONIX] 40 mg PO DAILY 01/21/17 [History] Past Medical History HEENT 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: Impaired Vision Other HEENT History: wears glasses, ear infection Cardiovascular 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: Angina, High Cholesterol, Hypertension, [place] Other Cardiovascular History: hx of [place] with cardiac stenting 1 year ago Respiratory 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: Asthma, Bronchitis, Recurrent, COPD, Pneumonia, Recurrent Other Respiratory History: Tobacco dependence, COPD with Nebulizer treatments and inhaler, Hx of bronchitis annd pneumonia Gastrointestinal 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: GERD, Hiatal Hernia Other Gastrointestinal History: abd pain Genitourinary 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: 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 R leg amputation Neurological 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: Other (See Below) Other Neuro History: hx: Headaches Psychiatric 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: None Endocrine/Metabolic 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: Diabetes, Type II, Obesity/BMI 30+ Hematologic 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: Anemia Immunologic 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: None Oncologic (Cancer) 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: None Dermatologic 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: None, Urticaria Other Dermatologic History: current rash on left arm - Infectious Disease History Infectious Disease 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: Chicken Pox, Measles - Past Surgical History Head Surgeries/Procedures: Reports: None HEENT Surgical 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: Myringotomy w Tube(s) Cardiovascular Surgical 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: Coronary Artery Stent GI Surgical 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: Cholecystectomy Social & Family History - Family History Family Medical History: Noncontributory HEENT: Reports: Cataract, Impaired Vision, Otitis Media, Sinusitis Cardiac: Reports: High Cholesterol, Hypertension, [place] Other Cardiac Family History: heart problems maternal and paternal sides Respiratory: Reports: Asthma, COPD, Sleep Apnea GI: Reports: None Musculoskeletal: Reports: Arthritis, Gout Neurological: Reports: CVA Endocrine/Metabolic: Reports: Diabetes, Type I, Diabetes, type II, Hyperthyroidism, Obesity/MBI 30+ Hematologic: Reports: Anemia Oncologic: Reports: Lung - Tobacco Use Smoking Status *Q: Former Smoker Years of Tobacco use: 20 Packs/Tins Daily: 1 Used Tobacco, but Quit: Yes Month Tobacco Last Used: 1 month Second Hand Smoke Exposure: No - Caffeine Use Caffeine Use: Reports: Coffee, Soda - Alcohol Use Days Per Week of Alcohol Use: 0 - Recreational Drug Use Recreational Drug Use: No Drug Use in Last 12 Months: No Review of Systems - Review of Systems Review Of Systems: See Below (See history of present illness) ED EXAM, GENERAL - Physical Exam Exam: See Below (See history of present illness) Course - Vital Signs Last Recorded V/S: Last Vital Signs Temp 98.2 F 01/22/17 00:25 Pulse 94 01/22/17 00:25 Resp 18 01/22/17 00:25 BP 120/59 L 01/22/17 00:25 Pulse Ox 96 01/22/17 00:25 - Orders/Labs/Meds Orders: Active Orders 24 hr Category Date Time Status Venous Doppler Lwr Ext Lt [US] Stat Exams 01/21/17 22:34 Taken Labs: Laboratory Tests 01/21/17 01/21/17 01/21/17 Range/Units 23:50 23:50 23:50 WBC 6.37 (4.0-11.0) K/uL RBC 4.22 L (4.30-5.90) M/uL Hgb 10.4 L (12.0-16.0) g/dL Hct 33.8 L (36.0-46.0) % MCV 80.1 (80.0-98.0) fL MCH 24.6 L (27.0-32.0) pg MCHC 30.8 L (31.0-37.0) g/dL RDW Std Deviation 49.2 (28.0-62.0) fl RDW Coeff of Demond 17 H (11.0-15.0) % Plt Count 209 (150-400) K/uL MPV 10.40 (7.40-12.00) fL Neut % (Auto) 53.9 (48.0-80.0) % Lymph % (Auto) 32.8 (16.0-40.0) % Simpson % (Auto) 6.6 (0.0-15.0) % Eos % (Auto) 6.4 (0.0-7.0) % Baso % (Auto) 0.3 (0.0-1.5) % Neut # (Auto) 3.4 (1.4-5.7) K/uL Lymph # (Auto) 2.1 (0.6-2.4) K/uL Simpson # (Auto) 0.4 (0.0-0.8) K/uL Eos # (Auto) 0.4 (0.0-0.7) K/uL Baso # (Auto) 0.0 (0.0-0.1) K/uL Nucleated RBC % 0.0 /100WBC Nucleated RBCs # 0 K/uL Sodium 139 (136-146) mmol/L Potassium 3.6 (3.5-5.1) mmol/L Chloride 105 (98-110) mmol/L Carbon Dioxide 25 (21-31) mmol/L BUN 8 (6.0-23.0) mg/dL Creatinine 0.7 (0.6-1.5) mg/dL Est Cr Clr Drug Dosing 90.41 mL/min Estimated GFR (MDRD) > 60.0 ml/min Glucose 226 H (60-110) mg/dL Calcium 8.4 L (8.8-10.8) mg/dL Total Bilirubin 0.4 (0.1-1.5) mg/dL AST 9 (5-40) IU/L ALT 13 (8-54) IU/L Alkaline Phosphatase 62 (40-150) B-Natriuretic Peptide 48 (<100) PG/ML Total Protein 5.8 L (6.0-8.0) g/dL Albumin 3.3 L (3.5-5.0) g/dL Globulin 2.5 (2.0-3.5) g/dL Albumin/Globulin Ratio 1.3 (1.3-2.8) Departure - Departure Disposition: Home, Self-Care 01 Clinical Impression: Leg pain, diffuse - Discharge Information Referrals: PCP,None [Primary Care Provider] - Forms: ED Department Discharge Additional Instructions: follow up with your primary care doctor within two weeks; sooner if needed. <Krish Santacruz - Last Filed: 01/22/17 00:50> Course - Re-Assessments/Exams Free Text/Narrative Re-Assessment/Exam: 01/22/17 00:48 I reviewed lab and ultrasound findings. She has normal capillary refill left foot. I suspect that her LLE pain is related to diabetic neuropathy. Departure - Departure Time of Disposition: 00:49 Condition: Fair
[2017-01-22 00:29] LABS: CHLORIDE,CL 105 mmol/L (98-110); SODIUM,NA 139 mmol/L (136-146)
[2017-01-22 00:31] VITALS: BP 120/59
--- NOTE | 2017-01-23 14:10 | US ---
EXAM DATE: 01/21/17 PATIENT'S AGE: 41 Patient: PARADISE BURGOS Facility: [place], [place] Site . Site : 1975 Study: US Extremity Left [id number] 11:26:57 PM Ordering Physician: Doctor Abdullahi Final Report: INDICATION: PAIN LEFT LEG TECHNIQUE: Left lower extremity venous duplex ultrasound was performed using wilson-scale ultrasound with and without compression and augmentation. Color Doppler and spectral Doppler exam of the lower extremity veins were obtained. COMPARISON: None FINDINGS: The left common femoral, deep femoral, superficial femoral, popliteal, posterior tibial, and greater saphenous veins are fully compressible with normal Duplex waveforms and response to mechanical augmentation. No masses or fluid collections are present. No mass or adenopathy is seen. The visualized contralateral common femoral vein is patent. IMPRESSION: 1. No sonographic evidence of deep venous thrombosis seen. Dictated by: Armani Nina MD @ 01/21/2017 23:48:04 (Electronic Signature) Report Signed by Proxy. JULY
== END 2017-01-22 01:20 | disposition home or self-care (01) ==
LOC: MW.ED 20:04
DX: M79.605 Pain in left leg (principal); I10 Essential (primary) hypertension; Z88.1 Allergy status to other antibiotic agents; Z88.5 Allergy status to narcotic agent; Z88.6 Allergy status to analgesic agent; Z79.899 Other long term (current) drug therapy; Z79.4 Long term (current) use of insulin; Z87.891 Personal history of nicotine dependence
CPT/HCPCS: 36415; 80053; 83880; 85025; 93971-26-LT; 93971-LT; 99284; 99284-25

== ENCOUNTER 2017-02-18 18:31 | Emergency (ER) | payer MEDICAID ==
[2017-02-18] MEDS ORDERED: Lidocaine 1% 20 ML MDV INJECT ONE ×2 (18:37→20:37)
[2017-02-18] MEDS ORDERED: HYDROmorphone 1 MG/ML Syringe IM ONE ×2 (18:37→20:24)
[2017-02-18] MEDS ORDERED: Bupivacaine 0.5% 10 ML SDV INJECT ONE (18:37)
--- NOTE | 2017-02-18 18:44 | EDM.PDOC ---
<Argelia Jasmine - Last Filed: 02/18/17 21:48> ED HPI GENERAL MEDICAL PROBLEM - General Chief Complaint: Laceration Stated Complaint: INJURY TO RIGHT LEG FROM FALL Time Seen by Provider: 02/18/17 18:36 - Related Data Allergies Allergy/AdvReac Type Severity Reaction Status Date / Time prednisone Allergy Mild Nausea Verified 02/18/17 18:38 doxycycline Allergy Hives Verified 02/18/17 18:38 Home Meds: Home Meds Aspirin [Adeel Chewable Aspirin] 81 mg PO DAILY 07/26/14 [History] Budesonide/Formoterol [Symbicort 160-4.5 MCG] 2 puff INH BID PRN 03/04/15 [ History] Fluticasone Propionate [Flonase Allergy Relief] 1 spray EITAN ASDIRECTED PRN 03/04 [History] Nitroglycerin [Nitrostat] 1 tab SL ASDIRECTED PRN 03/04/15 [History] Ondansetron HCl [Ondansetron] 8 mg PO ASDIRECTED PRN 10/01/15 [History] traMADol [Ultram] 1 tab PO QID PRN 10/12/15 [History] Albuterol [IJD: Albuterol HFA] 4 gm INH Q4H PRN #0 inhaler 10/22/16 [Rx] Calcium Carbonate [Tums] 1,000 mg PO DAILY #0 tab.chew 10/22/16 [Rx] Fluticasone/Salmeterol [Advair Diskus 250-50] 1 puff INH BID #0 inhaler [Rx] Insulin Aspart [NovoLOG] 0 unit SUBCUT ACBED #0 pen 10/22/16 [Rx] Apixaban [Eliquis] 5 mg PO DAILY 01/21/17 [History] Gabapentin [Neurontin] 600 mg PO DAILY 01/21/17 [History] Insulin Detemir [Levemir] 30 units SQ BEDTIME 01/21/17 [History] Pantoprazole [ProTONIX] 40 mg PO DAILY 01/21/17 [History] Cephalexin [Keflex] 500 mg PO Q6HR #40 capsule 02/18/17 [Rx] traMADol [Ultram] 50 mg PO Q8H PRN #12 tablet 02/18/17 [Rx] Course - Vital Signs Last Recorded V/S: Last Vital Signs Temp 97.7 F 02/18/17 21:45 Pulse 84 02/18/17 21:45 Resp 18 02/18/17 21:45 BP 130/81 02/18/17 21:45 Pulse Ox 97 02/18/17 21:45 - Orders/Labs/Meds Orders: Active Orders 24 hr Category Date Time Status Notify Provider Consults [RC] ASDIRECTED Care 02/18/17 20:54 Active Consult to Physician [CONS] Stat Cons 02/18/17 20:54 Active Femur Min 2V Rt [CR] Stat Exams 02/18/17 18:38 Taken Labs: Laboratory Tests 02/18/17 Range/Units 18:51 POC Glucose 306 H (60-110) mg/dL Meds: Medications Discontinued Medications Generic Name Dose Route Start Last Admin Trade Name Raffaeleq PRN Reason Stop Dose Admin Bacitracin 2 dose 02/18/17 19:38 02/18/17 20:33 Bacitracin Oint 1 Gm TOP 02/18/17 19:39 2 dose ONETIME ONE Administration Bupivacaine HCl 10 ml 02/18/17 18:37 02/18/17 18:47 Sensorcaine-Mpf 0.5% INJECT 02/18/17 18:38 10 ml ONETIME ONE Administration Hydromorphone HCl 1 mg 02/18/17 18:37 02/18/17 18:45 Dilaudid IM 02/18/17 18:38 1 mg ONETIME ONE Administration Hydromorphone HCl 1 mg 02/18/17 20:24 02/18/17 20:30 Dilaudid IM 02/18/17 20:25 1 mg ONETIME ONE Administration Lidocaine HCl 20 ml 02/18/17 18:37 02/18/17 18:47 Xylocaine 1% INJECT 02/18/17 18:38 20 ml ONETIME ONE Administration Lidocaine HCl 20 ml 02/18/17 20:37 02/18/17 20:51 Xylocaine 1% INJECT 02/18/17 20:38 20 ml ONETIME ONE Administration Ondansetron HCl 4 mg 02/18/17 18:59 02/18/17 19:20 Zofran Odt PO 02/18/17 19:00 4 mg ONETIME ONE Administration Departure - Departure Time of Disposition: 21:45 Disposition: Home, Self-Care 01 Clinical Impression: Laceration of right lower extremity Qualifiers: Encounter type: initial encounter Qualified Code(s): S81.811A - Laceration without foreign body, right lower leg, initial encounter - Discharge Information Prescriptions: Cephalexin [Keflex] 500 mg PO Q6HR #40 capsule traMADol [Ultram] 50 mg PO Q8H PRN #12 tablet PRN Reason: Pain Instructions: Laceration Care, Adult, [id number] Referrals: PCP,Unknown [Primary Care Provider] - Ashley Boggs PA [Physician Field Operations Supervisor] - 03/14/17 2:00 pm Forms: ED Department Discharge Additional Instructions: The following information is given to patients seen in the emergency department who are being discharged to home. This information is to outline your options for follow-up care. We provide all patients seen in our emergency department with a follow-up referral. The need for follow-up, as well as the timing and circumstances, are variable depending upon the specifics of your emergency department visit. If you don't have a primary care physician on staff, we will provide you with a referral. We always advise you to contact your personal physician following an emergency department visit to inform them of the circumstance of the visit and for follow-up with them and/or the need for any referrals to a consulting specialist. The emergency department will also refer you to a specialist when appropriate. This referral assures that you have the opportunity for follow-up care with a specialist. All of these measure are taken in an effort to provide you with optimal care, which includes your follow-up. Under all circumstances we always encourage you to contact your private physician who remains a resource for coordinating your care. When calling for follow-up care, please make the office aware that this follow-up is from your recent emergency room visit. If for any reason you are refused follow-up, please contact the [facility] Emergency Department at and asked to speak to the emergency department charge nurse. Sutures out in 14 days follow-up PMD return if symptoms worsen or change [facility] [address] [place] [id number] Care Plan Goals: 1. Keep dressing in place x 48H, then may change daily and prn 2. OK to shower after 48H, but no soaking wound 3. NWB on , no prosthesis 4. notify primary surgeon on Monday about wound complication 5. advised to RTC or call if further questions/concerns dictation consult #[id number] - My Orders Last 24 Hours: My Active Orders 02/18/17 18:38 Femur Min 2V Rt [CR] Stat - Assessment/Plan Last 24 Hours: My Active Orders 02/18/17 18:38 Femur Min 2V Rt [CR] Stat <Shira Vasquez - Last Filed: 02/19/17 07:34> ED HPI GENERAL MEDICAL PROBLEM - General Source of Information: Reports: Patient History Limitations: Reports: No Limitations - History of Present Illness INITIAL COMMENTS - FREE TEXT/NARRATIVE: History of present illness: []Patient has a right BKA and was walking at [facility] and tripped on a step and landed on cement lacerating her stump. She denies any other injuries. Review of systems: As per history of present illness and below otherwise all systems reviewed and negative. Past medical history: As per history of present illness and as reviewed below otherwise noncontributory. Surgical history: As per history of present illness and as reviewed below otherwise noncontributory. Social history: No reported history of drug or alcohol abuse. Family history: As per history of present illness and as reviewed below otherwise noncontributory. Physical exam: General: Well developed, well nourished in NAD HEENT: Atraumatic, normocephalic, pupils reactive, negative for conjunctival pallor or scleral icterus, mucous membranes moist, throat clear, neck supple, nontender, trachea midline. Lungs: Clear to auscultation, breath sounds equal bilaterally, chest nontender. Heart: S1S2, regular, negative for clicks, rubs, or JVD. Abdomen: Soft, nondistended, nontender. Negative for masses or hepatosplenomegaly. Negative for costovertebral tenderness. Pelvis: Stable nontender. Genitourinary: Deferred. Rectal: Deferred. Extremities: Right BKA, there is a 10 cm laceration transverse into the subcutaneous tissue there is no active arterial bleeding, negative for cords or calf pain. Neurovascular unremarkable. Neuro: Awake, alert, oriented. Cranial nerves II through XII unremarkable. Cerebellum unremarkable. Motor and sensory unremarkable throughout. Exam nonfocal. Diagnostics: []X-ray no fracture noted on the femur stump Therapeutics: []Dilaudid IM, laceration anesthetized with 1% lidocaine without bupivacaine half percent without wound irrigated and cleaned Impression: []Laceration right lower extremity Plan: []Patient was signed out to Argelia Jasmine for suturing the wound and disposition the patient. Definitive disposition and diagnosis as appropriate pending reevaluation and review of above. right leg stump Pain Score (Numeric/FACES): 10 Past Medical History HEENT 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: Impaired Vision Other HEENT History: wears glasses, ear infection Cardiovascular 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: Angina, High Cholesterol, Hypertension, [place] Other Cardiovascular History: hx of [place] with cardiac stenting 1 year ago Respiratory 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: Asthma, Bronchitis, Recurrent, COPD, Pneumonia, Recurrent Other Respiratory History: Tobacco dependence, COPD with Nebulizer treatments and inhaler, Hx of bronchitis annd pneumonia Gastrointestinal 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: GERD, Hiatal Hernia Other Gastrointestinal History: abd pain Genitourinary 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: None 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 R leg amputation Neurological 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: Other (See Below) Other Neuro History: hx: Headaches Psychiatric 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: None Endocrine/Metabolic 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: Diabetes, Type II, Obesity/BMI 30+ Hematologic 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: Anemia Immunologic 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: None Oncologic (Cancer) 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: None Dermatologic 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: None, Urticaria Other Dermatologic History: current rash on left arm - Infectious Disease History Infectious Disease 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: Chicken Pox, Measles - Past Surgical History Head Surgeries/Procedures: Reports: None HEENT Surgical 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: Myringotomy w Tube(s) Cardiovascular Surgical 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: Coronary Artery Stent GI Surgical 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: Cholecystectomy Social & Family History - Family History Family Medical History: Noncontributory HEENT: Reports: Cataract, Impaired Vision, Otitis Media, Sinusitis Cardiac: Reports: High Cholesterol, Hypertension, [place] Other Cardiac Family History: heart problems maternal and paternal sides Respiratory: Reports: Asthma, COPD, Sleep Apnea GI: Reports: None Musculoskeletal: Reports: Arthritis, Gout Neurological: Reports: CVA Endocrine/Metabolic: Reports: Diabetes, Type I, Diabetes, type II, Hyperthyroidism, Obesity/MBI 30+ Hematologic: Reports: Anemia Oncologic: Reports: Lung - Tobacco Use Smoking Status *Q: Former Smoker Years of Tobacco use: 20 Packs/Tins Daily: 1 Used Tobacco, but Quit: Yes Month Tobacco Last Used: 1 month Second Hand Smoke Exposure: No - Caffeine Use Caffeine Use: Reports: Coffee, Soda - Alcohol Use Days Per Week of Alcohol Use: 0 - Recreational Drug Use Recreational Drug Use: No Drug Use in Last 12 Months: No ED ROS GENERAL - Review of Systems Review Of Systems: See Below (See history of present illness) ED EXAM, SKIN/RASH Exam: See Below (See history of present illness) Course - Vital Signs Last Recorded V/S: Last Vital Signs Temp 97.7 F 02/18/17 21:45 Pulse 84 02/18/17 21:45 Resp 18 02/18/17 21:45 BP 130/81 02/18/17 21:45 Pulse Ox 97 02/18/17 21:45 - Orders/Labs/Meds Labs: Laboratory Tests 02/18/17 Range/Units 18:51 POC Glucose 306 H (60-110) mg/dL Departure - Departure Condition: Good
[2017-02-18] MEDS ORDERED: Ondansetron 4 MG Tab.DIS PO ONE (18:59)
[2017-02-18] MEDS ORDERED: Bacitracin Oint 1 GM U/D Packet TOP ONE (19:38)
[2017-02-18 23:01] VITALS: BP 130/81
--- NOTE | 2017-02-18 23:41 | CONS ---
DATE OF CONSULTATION: 02/18/2017 DATE OF : 1975 PRIMARY CARE PHYSICIAN: Unknown PCP REASON FOR CONSULT: Laceration, right BKA. HISTORY OF PRESENT ILLNESS: Oralia is a 41-year-old female with multiple medical comorbidities, who was seen [facility] for evaluation of a laceration involving the right lower extremity. She states that she underwent a right below-knee amputation at [place], in [facility] in December 2016. Her stitches were removed approximately 1 month later. She had been doing fairly well and was ready to be fit with a prosthesis in the upcoming week. She states that she tripped earlier [facility], landing on her right lower extremity. She was seen in the emergency department. Attempt at wound closure was done. This was unsuccessful. Orthopedic consult was subsequently obtained. The patient denies any other injuries from the fall. PAST MEDICAL HISTORY: Impaired vision, angina, high cholesterol, hypertension, history of [place], asthma, recurrent bronchitis, COPD, recurrent pneumonia, GERD, hiatal hernia, arthritis, headaches, type 2 diabetes, obesity, anemia. PAST SURGICAL HISTORY: Myringotomy with tubes, coronary artery stent, cholecystectomy, right below-knee amputation. MEDICATIONS: Aspirin, Symbicort, Flonase, Nitrostat, Zofran, tramadol, albuterol, calcium carbonate. ALLERGIES: Prednisone and doxycycline. SOCIAL HISTORY: She is a former smoker. She denies recreational drug use. FAMILY HISTORY: Noncontributory. REVIEW OF SYSTEMS: She denies recent fever, chills, cough, shortness of breath, chest pain, nausea, or vomiting. PHYSICAL EXAMINATION: VITAL SIGNS: Blood pressure 138/79, pulse 86, respirations 18, O2 saturation is 97% on room air. GENERAL: This is alert, well-nourished female, who is lying on ER stretcher in minimal distress. HEENT: Head is normocephalic and atraumatic. NECK: Supple. CHEST: Showed symmetrical excursions, unlabored. HEART: Regular rate. ABDOMEN: Benign. EXTREMITIES: Exam of the right lower extremity shows evidence of a prior below- knee amputation. The central portion of the incision measuring approximately 6 cm is open. No active bleeding is noted. There was no surrounding erythema or induration. Remainder of the stump appears intact. She has good motion at her knee. ASSESSMENT: Traumatic dehiscence of prior right below-knee amputation scar. PLAN: At this time, I discussed treatment options with the patient. An attempt at closure in the emergency room has been made. I recommended that we try again. She does have some pain along the superior portion of the incision. This was anesthetized with 1% lidocaine. Using sterile technique, a 3-0 nylon was used in a vertical mattress orientation to close the wound. The tension free stitches were used to reapproximate the wound edges without difficulty. I attempted to use Vicryl in the subcutaneous tissues, however, I did not appear to hold the tissue. I was able to get good closure of the wound with the 3-0 nylon. The wound was then cleaned. Xeroform gauze was placed over the wound and a bulky dressing was applied. Care was returned to the emergency room staff. She will be discharged home later tonight. She is to contact her BKA surgeon in [place], to see when followup is indicated. If she is in town, we will plan on removing her sutures at approximately 3-week point. She is advised to contact us if she has any questions or concerns. ABDOULAYE / AURORA /[id number]
--- NOTE | 2017-02-20 16:19 | CR ---
EXAM DATE: 02/18/17 PATIENT'S AGE: 41 Patient: PARADISE BURGOS Facility: [place], [place] Site . Site : [id number] Study: XRay Extremity Right femur [id number] 7:20:49 PM Ordering Physician: Pedro Silva Final Report: INDICATION: fall HISTORY: Fall. COMPARISON: None. TECHNIQUE: Right femur, 2 views. FINDINGS: Images are of the distal femur and proximal tibia/fibula. The proximal femur is not included on the field of view. Prior right [id number] amputation. No acute fracture is identified. No radiopaque foreign body. The medial/lateral compartments of the right femorotibial joint are intact. There is no depression of either tibial plateau. IMPRESSION: 1. Prior right [id number] amputation. 2. No acute bone abnormality. Dictated by Philip Schwartz MD @ 02/18/2017 7:51:35 PM Dictated by: Philip Schwartz MD @ 02/18/2017 19:51:44 (Electronic Signature) Report Signed by Proxy. [facility]
== END 2017-02-18 22:00 | disposition home or self-care (01) ==
LOC: MW.ED 18:31
DX: S81.811A Laceration without foreign body, right lower leg, initial encounter (principal); Z88.1 Allergy status to other antibiotic agents; Z88.5 Allergy status to narcotic agent; Z79.82 Long term (current) use of aspirin; Z79.4 Long term (current) use of insulin; Z79.899 Other long term (current) drug therapy; Z87.891 Personal history of nicotine dependence; W01.0XXA Fall on same level from slipping, tripping and stumbling without subsequent striking against object, initial encounter
CPT/HCPCS: 12002; 73552; 82962; 96372; 99284; A9270; J1170

== ENCOUNTER 2017-02-19 08:43 | Emergency (ER) | payer MEDICAID ==
--- NOTE | 2017-02-19 08:57 | EDM.PDOC ---
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 Patient awoke this morning with blood on her dressing and thought her sutures came out. She is here for wound check. Review of systems: As per history of present illness and below otherwise all systems reviewed and negative. Past medical history: As per history of present illness and as reviewed below otherwise noncontributory. Surgical history: As per history of present illness and as reviewed below otherwise noncontributory. Social history: No reported history of drug or alcohol abuse. Family history: As per history of present illness and as reviewed below otherwise noncontributory. Physical exam: General: Well developed, well nourished in NAD HEENT: Atraumatic, normocephalic, pupils reactive, negative for conjunctival pallor or scleral icterus, mucous membranes moist, throat clear, neck supple, nontender, trachea midline. Lungs: Clear to auscultation, breath sounds equal bilaterally, chest nontender. Heart: S1S2, regular, negative for clicks, rubs, or JVD. Abdomen: Soft, nondistended, nontender. Negative for masses or hepatosplenomegaly. Negative for costovertebral tenderness. Pelvis: Stable nontender. Genitourinary: Deferred. Rectal: Deferred. Extremities: Right BKA dressing removed sutures intact there is minimal blood on the dressing using from the wound, negative erythema or warmth Neurovascular unremarkable. Neuro: Awake, alert, oriented. Cranial nerves II through XII unremarkable. Cerebellum unremarkable. Motor and sensory unremarkable throughout. Exam nonfocal. Diagnostics: [] Therapeutics: [] Impression: []Laceration right BKA stump Plan: []Leave dressing in place for 48 hours then change daily. Definitive disposition and diagnosis as appropriate pending reevaluation and review of above. - Related Data Allergies Allergy/AdvReac Type Severity Reaction Status Date / Time prednisone Allergy Mild Nausea Verified 02/19/17 08:50 doxycycline Allergy Hives Verified 02/19/17 08:50 Home Meds: Home Meds Aspirin [Adeel Chewable Aspirin] 81 mg PO DAILY 07/26/14 [History] Budesonide/Formoterol [Symbicort 160-4.5 MCG] 2 puff INH BID PRN 03/04/15 [ History] Fluticasone Propionate [Flonase Allergy Relief] 1 spray EITAN ASDIRECTED PRN 03/04 [History] Nitroglycerin [Nitrostat] 1 tab SL ASDIRECTED PRN 03/04/15 [History] Ondansetron HCl [Ondansetron] 8 mg PO ASDIRECTED PRN 10/01/15 [History] traMADol [Ultram] 1 tab PO QID PRN 10/12/15 [History] Albuterol [IJD: Albuterol HFA] 4 gm INH Q4H PRN #0 inhaler 10/22/16 [Rx] Calcium Carbonate [Tums] 1,000 mg PO DAILY #0 tab.chew 10/22/16 [Rx] Fluticasone/Salmeterol [Advair Diskus 250-50] 1 puff INH BID #0 inhaler [Rx] Insulin Aspart [NovoLOG] 0 unit SUBCUT ACBED #0 pen 10/22/16 [Rx] Apixaban [Eliquis] 5 mg PO DAILY 01/21/17 [History] Gabapentin [Neurontin] 600 mg PO DAILY 01/21/17 [History] Insulin Detemir [Levemir] 30 units SQ BEDTIME 01/21/17 [History] Pantoprazole [ProTONIX] 40 mg PO DAILY 01/21/17 [History] Cephalexin [Keflex] 500 mg PO Q6HR #40 capsule 02/18/17 [Rx] traMADol [Ultram] 50 mg PO Q8H PRN #12 tablet 02/18/17 [Rx] Past Medical History HEENT 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: Impaired Vision Other HEENT History: wears glasses, ear infection Cardiovascular 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: Angina, High Cholesterol, Hypertension, [place] Other Cardiovascular History: hx of [place] with cardiac stenting 1 year ago Respiratory 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: Asthma, Bronchitis, Recurrent, COPD, Pneumonia, Recurrent Other Respiratory History: Tobacco dependence, COPD with Nebulizer treatments and inhaler, Hx of bronchitis annd pneumonia Gastrointestinal 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: GERD, Hiatal Hernia Other Gastrointestinal History: abd pain Genitourinary 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: None 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 R leg amputation Neurological 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: Other (See Below) Other Neuro History: hx: Headaches Psychiatric 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: None Endocrine/Metabolic 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: Diabetes, Type II, Obesity/BMI 30+ Hematologic 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: Anemia Immunologic 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: None Oncologic (Cancer) 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: None Dermatologic 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: None, Urticaria Other Dermatologic History: current rash on left arm - Infectious Disease History Infectious Disease 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: Chicken Pox, Measles - Past Surgical History Head Surgeries/Procedures: Reports: None HEENT Surgical 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: Myringotomy w Tube(s) Cardiovascular Surgical 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: Coronary Artery Stent GI Surgical 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: Cholecystectomy Social & Family History - Family History Family Medical History: Noncontributory HEENT: Reports: Cataract, Impaired Vision, Otitis Media, Sinusitis Cardiac: Reports: High Cholesterol, Hypertension, [place] Other Cardiac Family History: heart problems maternal and paternal sides Respiratory: Reports: Asthma, COPD, Sleep Apnea GI: Reports: None Musculoskeletal: Reports: Arthritis, Gout Neurological: Reports: CVA Endocrine/Metabolic: Reports: Diabetes, Type I, Diabetes, type II, Hyperthyroidism, Obesity/MBI 30+ Hematologic: Reports: Anemia Oncologic: Reports: Lung - Tobacco Use Smoking Status *Q: Former Smoker Years of Tobacco use: 20 Packs/Tins Daily: 1 Used Tobacco, but Quit: Yes Month Tobacco Last Used: 1 month Second Hand Smoke Exposure: No - Caffeine Use Caffeine Use: Reports: Coffee, Soda - Alcohol Use Days Per Week of Alcohol Use: 0 - Recreational Drug Use Recreational Drug Use: No Drug Use in Last 12 Months: No ED ROS GENERAL - Review of Systems Review Of Systems: See Below (See history of present illness) ED EXAM, SKIN/RASH Exam: See Below (See history of present illness) Departure - Departure Time of Disposition: 08:57 Disposition: Home, Self-Care 01 Condition: Good Clinical Impression: Encounter for wound re-check - Discharge Information Referrals: PCP,None [Primary Care Provider] - Additional Instructions: The following information is given to patients seen in the emergency department who are being discharged to home. This information is to outline your options for follow-up care. We provide all patients seen in our emergency department with a follow-up referral. The need for follow-up, as well as the timing and circumstances, are variable depending upon the specifics of your emergency department visit. If you don't have a primary care physician on staff, we will provide you with a referral. We always advise you to contact your personal physician following an emergency department visit to inform them of the circumstance of the visit and for follow-up with them and/or the need for any referrals to a consulting specialist. The emergency department will also refer you to a specialist when appropriate. This referral assures that you have the opportunity for follow-up care with a specialist. All of these measure are taken in an effort to provide you with optimal care, which includes your follow-up. Under all circumstances we always encourage you to contact your private physician who remains a resource for coordinating your care. When calling for follow-up care, please make the office aware that this follow-up is from your recent emergency room visit. If for any reason you are refused follow-up, please contact the [facility] Emergency Department at and asked to speak to the emergency department charge nurse. The dressing on for 48 hours then change daily. Follow-up as directed. Sutures out in 3 weeks
[2017-02-19 09:24] VITALS: BP 132/89
== END 2017-02-19 09:15 | disposition home or self-care (01) ==
LOC: MW.ED 08:43
DX: S81.011D Laceration without foreign body, right knee, subsequent encounter (principal); E11.9 Type 2 diabetes mellitus without complications; Z88.5 Allergy status to narcotic agent; Z88.1 Allergy status to other antibiotic agents; Z79.82 Long term (current) use of aspirin; Z79.4 Long term (current) use of insulin; Z79.899 Other long term (current) drug therapy; Z87.891 Personal history of nicotine dependence; Z89.511 Acquired absence of right leg below knee; X58.XXXD Exposure to other specified factors, subsequent encounter
CPT/HCPCS: 99282

== ENCOUNTER 2017-04-03 19:38 | Emergency (ER) | payer MEDICAID ==
--- NOTE | 2017-04-03 19:40 | EDM.PDOC ---
ED HPI GENERAL MEDICAL PROBLEM - General Stated Complaint: FALL/HIT HEAD Time Seen by Provider: 04/03/17 19:39 Source of Information: Reports: Patient History Limitations: Reports: No Limitations - History of Present Illness INITIAL COMMENTS - FREE TEXT/NARRATIVE: HISTORY AND PHYSICAL: History of present illness: Patient is a 42-year-old female who presents to the emergency room today with complaints of a fall resulting in her hitting her head. Patient recently was seen in my not for a DVT and had a below the knee amputation as a result of her vascular status. She is a type II diabetic and states that she has had uncontrolled sugars within the last couple days, ranging in the 600s. Hospital she has also complained of dizzy episodes which usually resolve on their own. She states that "I want came in if I hadn't had hit my head". She complains of some chest tightness and intermittent pain that goes down her left arm. Currently complaining of dizziness. Denies any chest pain, shortness of breath, abdominal pain, nausea, vomiting or diarrhea. Patient has a history of [place] with stents, COPD, type 2 diabetes, hypertension, elevated cholesterol, DVT, and medication non compliance. Currently on Eliquist for DVT prophylaxis Review of systems: As per history of present illness and below otherwise all systems reviewed and negative. Past medical history: As per history of present illness and as reviewed below otherwise noncontributory. Surgical history: As per history of present illness and as reviewed below otherwise noncontributory. Social history: No reported history of drug or alcohol abuse. Family history: As per history of present illness and as reviewed below otherwise noncontributory. Physical exam: Gen.: Well-developed and well-nourished 42-year-old female. Alert and oriented. Nontoxic appearing and in no acute distress. HEENT: Tender with palpation, normocephalic, pupils reactive, negative for conjunctival pallor or scleral icterus, mucous membranes moist, throat clear, neck supple, nontender, trachea midline. Lungs: Clear to auscultation, breath sounds equal bilaterally, chest nontender. Heart: S1S2, regular, negative for clicks, rubs, or JVD. Abdomen: Soft, nondistended, nontender. Negative for masses or hepatosplenomegaly. Negative for costovertebral tenderness. Pelvis: Stable nontender. Genitourinary: Deferred. Rectal: Deferred. Extremities: Moves all extremities per self, below the knee amputation of the right. Left is negative for cords or calf pain. Neurovascular unremarkable. Neuro: Awake, alert, oriented. Cranial nerves II through XII unremarkable. Cerebellum unremarkable. Motor and sensory unremarkable throughout. Exam nonfocal. Vital signs have been reviewed by me, including orthostatics. Patient's glucose is 392. She is therapeutic with INR of 0.94. Negative troponin. EKG is not changed from previous EKG's. Patient continues to have complaints of nausea. Second dose of Zofran will be given at this time. I did review her lab results with her. Head CT is negative. Chest x-ray shows no evidence of pneumonia or infiltrate, negative. Did offer patient admission for observation, which she declined. She states she is comfortable going home and will return if her symptoms worsen or new symptoms arise. Head injury instructions were reviewed with her. She voices understanding and is agreeable to plan of care. She denies any further questions at this time. Diagnostics: Head CT, PT/INR, CBC, CMP, chest x-ray, EKG, troponin Therapeutics: Orthostatic vital signs, saline lock Impression: Head Injury Plan: 1. Please take Tylenol as needed for pain management. Zofran has been prescribed for nausea. 2. Please review and follow the head injury instructions have been discussed and provided to you. 3. Follow up with her primary care provider in the next 1-2 days. Return to the ED as needed and as discussed. Definitive disposition and diagnosis as appropriate pending reevaluation and review of above. Onset: Today Duration: Hour(s): Location: Reports: Head head Pain Score (Numeric/FACES): 8 - Related Data Allergies Allergy/AdvReac Type Severity Reaction Status Date / Time prednisone Allergy Mild Nausea Verified 04/03/17 19:41 doxycycline Allergy Hives Verified 04/03/17 19:41 Home Meds: Home Meds Aspirin [Adeel Chewable Aspirin] 81 mg PO DAILY 07/26/14 [History] Budesonide/Formoterol [Symbicort 160-4.5 MCG] 2 puff INH BID PRN 03/04/15 [ History] Fluticasone Propionate [Flonase Allergy Relief] 1 spray EITAN ASDIRECTED PRN 03/04 [History] Nitroglycerin [Nitrostat] 1 tab SL ASDIRECTED PRN 03/04/15 [History] Ondansetron HCl [Ondansetron] 8 mg PO ASDIRECTED PRN 10/01/15 [History] traMADol [Ultram] 1 tab PO QID PRN 10/12/15 [History] Albuterol [IJD: Albuterol HFA] 4 gm INH Q4H PRN #0 inhaler 10/22/16 [Rx] Calcium Carbonate [Tums] 1,000 mg PO DAILY #0 tab.chew 10/22/16 [Rx] Fluticasone/Salmeterol [Advair Diskus 250-50] 1 puff INH BID #0 inhaler [Rx] Insulin Aspart [NovoLOG] 0 unit SUBCUT ACBED #0 pen 10/22/16 [Rx] Apixaban [Eliquis] 5 mg PO DAILY 01/21/17 [History] Gabapentin [Neurontin] 600 mg PO DAILY 01/21/17 [History] Insulin Detemir [Levemir] 30 units SQ BEDTIME 01/21/17 [History] Pantoprazole [ProTONIX] 40 mg PO DAILY 01/21/17 [History] Cephalexin [Keflex] 500 mg PO Q6HR #40 capsule 02/18/17 [Rx] traMADol [Ultram] 50 mg PO Q8H PRN #12 tablet 02/18/17 [Rx] Ondansetron [Zofran ODT] 4 mg PO Q6H PRN #10 tab.dis 04/03/17 [Rx] Past Medical History HEENT 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: Impaired Vision Other HEENT History: wears glasses, ear infection Cardiovascular 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: Angina, High Cholesterol, Hypertension, [place] Other Cardiovascular History: hx of [place] with cardiac stenting 1 year ago Respiratory 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: Asthma, Bronchitis, Recurrent, COPD, Pneumonia, Rec[place] Other Respiratory History: Tobacco dependence, COPD with Nebulizer treatments and inhaler, Hx of bronchitis annd pneumonia Gastrointestinal 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: GERD, Hiatal Hernia Other Gastrointestinal History: abd pain Genitourinary 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: None 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 R leg amputation Neurological 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: Other (See Below) Other Neuro History: hx: Headaches Psychiatric 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: None Endocrine/Metabolic 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: Diabetes, Type II, Obesity/BMI 30+ Hematologic 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: Anemia Immunologic 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: None Oncologic (Cancer) 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: None Dermatologic 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: None, Urticaria Other Dermatologic History: current rash on left arm - Infectious Disease History Infectious Disease 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: Chicken Pox, Measles - Past Surgical History Head Surgeries/Procedures: Reports: None HEENT Surgical 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: Myringotomy w Tube(s) Cardiovascular Surgical 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: Coronary Artery Stent GI Surgical 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: Cholecystectomy Social & Family History - Family History Family Medical History: Noncontributory HEENT: Reports: Cataract, Impaired Vision, Otitis Media, Sinusitis Cardiac: Reports: High Cholesterol, Hypertension, [place] Other Cardiac Family History: heart problems maternal and paternal sides Respiratory: Reports: Asthma, COPD, Sleep Apnea GI: Reports: None Musculoskeletal: Reports: Arthritis, Gout Neurological: Reports: CVA Endocrine/Metabolic: Reports: Diabetes, Type I, Diabetes, type II, Hyperthyroidism, Obesity/MBI 30+ Hematologic: Reports: Anemia Oncologic: Reports: Lung - Tobacco Use Smoking Status *Q: Former Smoker Years of Tobacco use: 20 Packs/Tins Daily: 1 Used Tobacco, but Quit: Yes Month Tobacco Last Used: 1 month Second Hand Smoke Exposure: No - Caffeine Use Caffeine Use: Reports: Coffee, Soda - Alcohol Use Days Per Week of Alcohol Use: 0 - Recreational Drug Use Recreational Drug Use: No Drug Use in Last 12 Months: No ED ROS GENERAL - Review of Systems Review Of Systems: ROS reveals no pertinent complaints other than HPI. ED EXAM, HEAD INJURY - Physical Exam Exam: See Below (See dictation) Course - Vital Signs Last Recorded V/S: Last Vital Signs Temp 97.5 F 04/03/17 19:42 Pulse 105 H 04/03/17 19:42 Resp 18 04/03/17 19:42 BP 172/86 H 04/03/17 19:42 Pulse Ox 98 04/03/17 19:42 Orthostatic Blood Pressure [ 152/89 Standing] Orthostatic Blood Pressure [ 153/90 Sitting] Orthostatic Blood Pressure [ 165/84 Supine] - Orders/Labs/Meds Orders: Active Orders 24 hr Category Date Time Status EKG Documentation Completion [RC] STAT Care 04/03/17 19:46 Active Orthostatic Vital Signs [RC] ASDIRECTED Care 04/03/17 19:46 Active Chest 1V Frontal [CR] Stat Exams 04/03/17 19:46 Taken Head wo Cont [CT] Stat Exams 04/03/17 19:39 Taken Sodium Chloride 0.9% [Normal Saline] 1,000 ml Med 04/03/17 19:56 Active IV STAT Sodium Chloride 0.9% [Saline Flush] Med 04/03/17 19:50 Active 10 ml FLUSH ASDIRECTED PRN Sodium Chloride 0.9% [Saline Flush] Med 04/03/17 19:50 Active 2.5 ml FLUSH ASDIRECTED PRN Saline Lock Insert [OM.PC] Stat Oth 04/03/17 19:50 Ordered Medication Orders Sodium Chloride (Normal Saline) 1,000 mls @ 125 mls/hr IV STAT ONE Stop: 04/04/17 03:55 Last Admin: 04/03/17 20:07 Dose: 125 mls/hr Sodium Chloride (Saline Flush) 10 ml FLUSH ASDIRECTED PRN PRN Reason: Keep Vein Open Sodium Chloride (Saline Flush) 2.5 ml FLUSH ASDIRECTED PRN PRN Reason: Keep Vein Open Labs: Laboratory Tests 04/03/17 04/03/17 04/03/17 Range/Units 19:47 19:47 19:47 WBC 9.30 (4.0-11.0) K/uL RBC 4.67 (4.30-5.90) M/uL Hgb 9.9 L (12.0-16.0) g/dL Hct 32.5 L (36.0-46.0) % MCV 69.6 L (80.0-98.0) fL MCH 21.2 L (27.0-32.0) pg MCHC 30.5 L (31.0-37.0) g/dL RDW Std Deviation 38.8 (28.0-62.0) fl RDW Coeff of Demond 16 H (11.0-15.0) % Plt Count 222 (150-400) K/uL MPV 11.10 (7.40-12.00) fL Neut % (Auto) 66.6 (48.0-80.0) % Lymph % (Auto) 26.6 (16.0-40.0) % [place] % (Auto) 5.7 (0.0-15.0) % Eos % (Auto) 0.6 (0.0-7.0) % Baso % (Auto) 0.5 (0.0-1.5) % Neut # (Auto) 6.2 H (1.4-5.7) K/uL Lymph # (Auto) 2.5 H (0.6-2.4) K/uL [place] # (Auto) 0.5 (0.0-0.8) K/uL Eos # (Auto) 0.1 (0.0-0.7) K/uL Baso # (Auto) 0.1 (0.0-0.1) K/uL Nucleated RBC % 0.0 /100WBC Nucleated RBCs # 0 K/uL INR 0.94 Sodium 134 L (136-146) mmol/L Potassium 4.1 (3.5-5.1) mmol/L Chloride 104 (98-110) mmol/L Carbon Dioxide 17 L (21-31) mmol/L BUN 9 (6.0-23.0) mg/dL Creatinine 0.8 (0.6-1.5) mg/dL Est Cr Clr Drug Dosing 81.59 mL/min Estimated GFR (MDRD) > 60.0 ml/min Glucose 392 H (60-110) mg/dL Calcium 8.8 (8.8-10.8) mg/dL Total Bilirubin 0.3 (0.1-1.5) mg/dL AST 12 (5-40) IU/L ALT 13 (8-54) IU/L Alkaline Phosphatase 79 (40-150) Troponin I < 0.10 (0.0-0.29) NG/ML Total Protein 7.1 (6.0-8.0) g/dL Albumin 3.9 (3.5-5.0) g/dL Globulin 3.2 (2.0-3.5) g/dL Albumin/Globulin Ratio 1.2 L (1.3-2.8) Meds: Medications Generic Name Dose Route Start Last Admin Trade Name Freq PRN Reason Stop Dose Admin Sodium Chloride 1,000 mls @ 125 mls/hr 04/03/17 19:56 04/03/17 20:07 Normal Saline IV 01/23/18 03:55 125 mls/hr STAT ONE Administration Sodium Chloride 10 ml 04/03/17 19:50 Saline Flush FLUSH ASDIRECTED PRN Keep Vein Open Sodium Chloride 2.5 ml 04/03/17 19:50 Saline Flush FLUSH ASDIRECTED PRN Keep Vein Open Discontinued Medications Generic Name Dose Route Start Last Admin Trade Name Freq PRN Reason Stop Dose Admin Ondansetron HCl 4 mg 04/03/17 19:56 04/03/17 20:07 Zofran IVPUSH 04/03/17 19:57 4 mg ONETIME ONE Administration Departure - Departure Time of Disposition: :18 Disposition: Home, Self-Care 01 Clinical Impression: Head injury Qualifiers: Encounter type: initial encounter Qualified Code(s): S09.90XA - Unspecified injury of head, initial encounter - Discharge Information Prescriptions: Ondansetron [Zofran ODT] 4 mg PO Q6H PRN #10 tab.dis PRN Reason: Nausea Instructions: Head Injury, Adult, [id number] Referrals: PCP,None [Primary Care Provider] - Additional Instructions: My general discharge The following information is given to patients seen in the emergency department who are being discharged to home. This information is to outline your options for follow-up care. We provide all patients seen in our emergency department with a follow-up referral. The need for follow-up, as well as the timing and circumstances, are variable depending upon the specifics of your emergency department visit. If you don't have a primary care physician on staff, we will provide you with a referral. We always advise you to contact your personal physician following an emergency department visit to inform them of the circumstance of the visit and for follow-up with them and/or the need for any referrals to a consulting specialist. The emergency department will also refer you to a specialist when appropriate. This referral assures that you have the opportunity for follow-up care with a specialist. All of these measure are taken in an effort to provide you with optimal care, which includes your follow-up. Under all circumstances we always encourage you to contact your private physician who remains a resource for coordinating your care. When calling for follow-up care, please make the office aware that this follow-up is from your recent emergency room visit. If for any reason you are refused follow-up, please contact the [facility] Emergency Department at and asked to speak to the emergency department charge nurseAquiles Heller [facility] [address] [place] [id number] 1. Please take Tylenol as needed for pain management. Zofran has been prescribed for nausea. Rest and apply gentle ice to painful areas throughout the day. 2. Please review and follow the head injury instructions have been discussed and provided to you. 3. Follow up with her primary care provider in the next 1-2 days. Return to the ED as needed and as discussed. - My Orders Last 24 Hours: My Active Orders 04/03/17 19:39 Head wo Cont [CT] Stat 04/03/17 19:46 EKG Documentation Completion [RC] STAT Orthostatic Vital Signs [RC] ASDIRECTED Chest 1V Frontal [CR] Stat 04/03/17 19:50 Sodium Chloride 0.9% [Saline Flush] 10 ml FLUSH ASDIRECTED PRN Sodium Chloride 0.9% [Saline Flush] 2.5 ml FLUSH ASDIRECTED PRN Saline Lock Insert [OM.PC] Stat 04/03/17 19:56 Sodium Chloride 0.9% [Normal Saline] 1,000 ml IV STAT - Assessment/Plan Last 24 Hours: My Active Orders 04/03/17 19:39 Head wo Cont [CT] Stat 04/03/17 19:46 EKG Documentation Completion [RC] STAT Orthostatic Vital Signs [RC] ASDIRECTED Chest 1V Frontal [CR] Stat 04/03/17 19:50 Sodium Chloride 0.9% [Saline Flush] 10 ml FLUSH ASDIRECTED PRN Sodium Chloride 0.9% [Saline Flush] 2.5 ml FLUSH ASDIRECTED PRN Saline Lock Insert [OM.PC] Stat 04/03/17 19:56 Sodium Chloride 0.9% [Normal Saline] 1,000 ml IV STAT
[2017-04-03] MEDS ORDERED: Sodium Chloride 0.9% 2.5 ML Syringe FLUSH PRN (19:50)
[2017-04-03] MEDS ORDERED: Sodium Chloride 0.9% 10 ML Syringe FLUSH PRN (19:50)
[2017-04-03] MEDS ORDERED: Sodium Chloride 0.9% 1,000 ML IV ONE (19:56)
[2017-04-03] MEDS ORDERED: Ondansetron 4 MG/2 ML SDV IVPUSH ONE (19:56)
[2017-04-03 20:16] LABS: CHLORIDE,CL 104 mmol/L (98-110); SODIUM,NA 134 mmol/L (136-146)
[2017-04-03 22:04] VITALS: BP 113/57
--- NOTE | 2017-04-04 14:35 | CT ---
EXAM DATE: 04/03/17 PATIENT'S AGE: 42 Patient: PARADISE BURGOS Facility: [place], [place] Site . Site : 1975 Study: CT Head WO CONT [id number]/22/2018 8:52:17 PM Ordering Physician: Doctor Abdullahi Final Report: INDICATION: Dizziness, fell and hit head on right side. Patient is on blood thinners. TECHNIQUE: CT head without i.v. contrast. COMPARISON: Comparison head CT dated 07/26/2014. FINDINGS: CSF spaces: Within normal limits for age. Brain parenchyma: The brain parenchyma is normal in appearance with preservation of the wilson-white differentiation. No sign of mass, hemorrhage, or midline shift seen. Skull base and calvarium: The visualized paranasal sinuses are well aerated. The mastoid air cells are clear. The visualized orbits are grossly unremarkable. No skull fractures are seen. IMPRESSION: 1. Negative head CT. Dictated by Krish Koch MD @ 04/03/2017 8:57:48 PM Dictated by: Krish Koch MD @ 04/03/2017 20:57:51 (Electronic Signature) Report Signed by Proxy. [facility]ITAL[facility]ulce
--- NOTE | 2017-04-04 14:36 | CR ---
EXAM DATE: 04/03/17 PATIENT'S AGE: 42 Patient: PARADISE BURGOS Facility: [place], [place] Site . Site : 1975 Study: XRay Chest [id number]/22/2018 8:53:03 PM Ordering Physician: Doctor Abdullahi Final Report: INDICATION: dizziness, fell TECHNIQUE: Chest 1 view. COMPARISON: 12/26/16 FINDINGS: Cardiovascular and mediastinum: Heart size and vasculature are normal in caliber and appearance. Mediastinum is within normal limits. Lungs and pleural space: Lungs are clear. No sign of infiltrate or mass. No sign of pleural effusion. No pneumothorax. Bones and soft tissues: No significant findings. IMPRESSION: Unremarkable chest. Dictated by: Catracho Sheridan MD @ 04/03/2017 20:56:36 (Electronic Signature) Report Signed by Proxy. [facility]ITAL[facility]ul[facility]
== END 2017-04-03 21:30 | disposition home or self-care (01) ==
LOC: MW.ED 19:38
DX: S09.90XA Unspecified injury of head, initial encounter (principal); E78.00 Pure hypercholesterolemia, unspecified; I10 Essential (primary) hypertension; E11.9 Type 2 diabetes mellitus without complications; Z88.8 Allergy status to other drugs, medicaments and biological substances; Z88.1 Allergy status to other antibiotic agents; Z79.82 Long term (current) use of aspirin; Z79.899 Other long term (current) drug therapy; Z79.4 Long term (current) use of insulin; Z87.891 Personal history of nicotine dependence; W01.10XA Fall on same level from slipping, tripping and stumbling with subsequent striking against unspecified object, initial encounter
CPT/HCPCS: 36415; 70450; 71045; 80053; 84484; 85025; 85610; 93005; 96361; 96374; 99284; J2405; J7040

== ENCOUNTER 2017-06-06 01:56 | Emergency (ER) | payer MEDICAID ==
[2017-06-06 02:08] VITALS: BP 147/81
--- NOTE | 2017-06-06 02:09 | EDM.PDOC ---
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 She denies any other concern Review of systems: As per history of present illness and below otherwise all systems reviewed and negative. Past medical history: As per history of present illness and as reviewed below otherwise noncontributory. Surgical history: As per history of present illness and as reviewed below otherwise noncontributory. Social history: No reported history of drug or alcohol abuse. Family history: As per history of present illness and as reviewed below otherwise noncontributory. Physical exam: HEENT: Atraumatic, normocephalic, pupils reactive, negative for conjunctival pallor or scleral icterus, mucous membranes moist, throat clear, neck supple, nontender, trachea midline. Lungs: Clear to auscultation, breath sounds equal bilaterally, chest nontender. Heart: S1S2, regular, negative for clicks, rubs, or JVD. Abdomen: Soft, nondistended, nontender. Negative for masses or hepatosplenomegaly. Negative for costovertebral tenderness. Pelvis: Stable nontender. Genitourinary: Deferred. Rectal: Deferred. Extremities: Wgddr-[id number] amputation noted with no erythema no warmth no other significant findings. Neuro: Awake, alert, oriented. Cranial nerves II through XII unremarkable. Cerebellum unremarkable. Motor and sensory unremarkable throughout. Exam nonfocal. Diagnostics: X-ray right knee including stump Therapeutics: None Impression: #1 history of [id number] amputation #2 rule out phantom limb pain Definitive disposition and diagnosis as appropriate pending reevaluation and review of above. - Related Data Allergies Allergy/AdvReac Type Severity Reaction Status Date / Time prednisone Allergy Mild Nausea Verified 04/03/17 19:41 doxycycline Allergy Hives Verified 04/03/17 19:41 Home Meds: Home Meds Aspirin [Adeel Chewable Aspirin] 81 mg PO DAILY 07/26/14 [History] Budesonide/Formoterol [Symbicort 160-4.5 MCG] 2 puff INH BID PRN 03/04/15 [ History] Fluticasone Propionate [Flonase Allergy Relief] 1 spray EITAN ASDIRECTED PRN 03/04 [History] Nitroglycerin [Nitrostat] 1 tab SL ASDIRECTED PRN 03/04/15 [History] Ondansetron HCl [Ondansetron] 8 mg PO ASDIRECTED PRN 10/01/15 [History] traMADol [Ultram] 1 tab PO QID PRN 10/12/15 [History] Albuterol [IJD: Albuterol HFA] 4 gm INH Q4H PRN #0 inhaler 10/22/16 [Rx] Calcium Carbonate [Tums] 1,000 mg PO DAILY #0 tab.chew 10/22/16 [Rx] Fluticasone/Salmeterol [Advair Diskus 250-50] 1 puff INH BID #0 inhaler [Rx] Insulin Aspart [NovoLOG] 0 unit SUBCUT ACBED #0 pen 10/22/16 [Rx] Apixaban [Eliquis] 5 mg PO DAILY 01/21/17 [History] Gabapentin [Neurontin] 600 mg PO DAILY 01/21/17 [History] Insulin Detemir [Levemir] 30 units SQ BEDTIME 01/21/17 [History] Pantoprazole [ProTONIX] 40 mg PO DAILY 01/21/17 [History] Cephalexin [Keflex] 500 mg PO Q6HR #40 capsule 02/18/17 [Rx] traMADol [Ultram] 50 mg PO Q8H PRN #12 tablet 02/18/17 [Rx] Ondansetron [Zofran ODT] 4 mg PO Q6H PRN #10 tab.dis 04/03/17 [Rx] Past Medical History HEENT 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: Impaired Vision Other HEENT History: wears glasses, ear infection Cardiovascular 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: Angina, High Cholesterol, Hypertension, [place] Other Cardiovascular History: hx of [place] with cardiac stenting 1 year ago Respiratory 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: Asthma, Bronchitis, Recurrent, COPD, Pneumonia, Recurrent Other Respiratory History: Tobacco dependence, COPD with Nebulizer treatments and inhaler, Hx of bronchitis annd pneumonia Gastrointestinal 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: GERD, Hiatal Hernia Other Gastrointestinal History: abd pain Genitourinary 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: None [employer] IN[employer] 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: Other OB/BYN History: Cyst in ovaries Musculoskeletal 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: Arthritis Other Musculoskeletal History: right foot and ankle. R leg amputation Neurological 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: Other (See Below) Other Neuro History: hx: Headaches Psychiatric 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: None Endocrine/Metabolic 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: Diabetes, Type II, Obesity/BMI 30+ Hematologic 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: Anemia Immunologic 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: None Oncologic (Cancer) 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: None Dermatologic 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: None, Urticaria Other Dermatologic History: current rash on left arm - Infectious Disease History Infectious Disease 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: Chicken Pox, Measles - Past Surgical History Head Surgeries/Procedures: Reports: None HEENT Surgical 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: Myringotomy w Tube(s) Cardiovascular Surgical 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: Coronary Artery Stent GI Surgical 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: Cholecystectomy Social & Family History - Family History Family Medical History: Noncontributory HEENT: Reports: Cataract, Impaired Vision, Otitis Media, Sinusitis Cardiac: Reports: High Cholesterol, Hypertension, CA Other Cardiac Family History: heart problems maternal and paternal sides Respiratory: Reports: Asthma, COPD, Sleep Apnea GI: Reports: None Musculoskeletal: Reports: Arthritis, Gout Neurological: Reports: CVA Endocrine/Metabolic: Reports: Diabetes, Type I, Diabetes, type II, Hyperthyroidism, Obesity/MBI 30+ Hematologic: Reports: Anemia Oncologic: Reports: Lung - Tobacco Use Smoking Status *Q: Former Smoker Years of Tobacco use: 20 Packs/Tins Daily: 1 Used Tobacco, but Quit: Yes Month/Year Tobacco Last Used: 1 month Second Hand Smoke Exposure: No - Caffeine Use Caffeine Use: Reports: Coffee, Soda - Alcohol Use Days Per Week of Alcohol Use: 0 - Recreational Drug Use Recreational Drug Use: No Drug Use in Last 12 Months: No Review of Systems - Review of Systems Review Of Systems: ROS reveals no pertinent complaints other than HPI. ED EXAM, GENERAL - Physical Exam Exam: See Below (See dictation) Departure - Departure Time of Disposition: 02:08 Disposition: Home, Self-Care 01 Condition: Good Clinical Impression: Extremity pain - Discharge Information Referrals: PCP,None [Primary Care Provider] - Additional Instructions: The following information is given to patients seen in the emergency department who are being discharged to home. This information is to outline your options for follow-up care. We provide all patients seen in our emergency department with a follow-up referral. The need for follow-up, as well as the timing and circumstances, are variable depending upon the specifics of your emergency department visit. If you don't have a primary care physician on staff, we will provide you with a referral. We always advise you to contact your personal physician following an emergency department visit to inform them of the circumstance of the visit and for follow-up with them and/or the need for any referrals to a consulting specialist. The emergency department will also refer you to a specialist when appropriate. This referral assures that you have the opportunity for followup care with a specialist. All of these measure are taken in an effort to provide you with optimal care, which includes your followup. Under all circumstances we always encourage you to contact your private physician who remains a resource for coordinating your care. When calling for followup care, please make the office aware that this follow-up is from your recent emergency room visit. If for any reason you are refused follow-up, please contact the [facility] emergency department at and asked to speak to the emergency department charge nurse. Follow-up primary medical doctor call to schedule routine appointment return as needed as discussed
--- NOTE | 2017-06-06 10:42 | CR ---
EXAM DATE: 06/06/17 PATIENT'S AGE: 42 Patient: PARADISE BURGOS Facility: [place], [place] Site . Site : 1975 Study: XRay Knee Right [id number]/27/2018 2:34:11 AM Ordering Physician: Kim Moses Final Report: Indication: Right thumb pain Technique: 3 views of the right knee Comparison: 02/18/2017 Findings/Impression: Bones: Post below-knee amputation changes again noted. Mild osteopenia. No acute fracture or dislocation. No gross osseous erosive or destructive changes seen. Joint spaces: Unremarkable. Soft tissues: Soft tissue prominence at the stump was seen on the prior study. Dictated by Shashi Gar MD @ 06/06/2017 2:56:39 AM Dictated by: Shashi Gar MD @ 06/06/2017 02:56:45 (Electronic Signature) Report Signed by Proxy. JULY
== END 2017-06-06 03:20 | disposition home or self-care (01) ==
LOC: MW.ED 01:56
DX: M25.561 Pain in right knee (principal); E78.00 Pure hypercholesterolemia, unspecified; I25.2 Old myocardial infarction; I10 Essential (primary) hypertension; K21.9 Gastro-esophageal reflux disease without esophagitis; E11.9 Type 2 diabetes mellitus without complications; Z89.511 Acquired absence of right leg below knee; Z88.8 Allergy status to other drugs, medicaments and biological substances; Z88.1 Allergy status to other antibiotic agents; Z79.82 Long term (current) use of aspirin; Z79.899 Other long term (current) drug therapy; Z79.4 Long term (current) use of insulin; Z87.891 Personal history of nicotine dependence
CPT/HCPCS: 73562-26-RT; 73562-RT; 99283

== ENCOUNTER 2017-07-21 08:46 | Day surgery (SDC) | payer MEDICAID ==
[~2017-07-21 08:46] MED LIST: Lactated Ringers 1,000 ML IV SCH; Lidocaine 2% 5 ML SDV ONE; Propofol 200 MG/20 ML SDV ONE
--- NOTE | 2017-07-21 09:30 | PCM.PREANE ---
Preanesthetic Assessment - Procedure Proposed Procedure: EGD - Anesthesia/Transfusion/Family Hx Anesthesia History: Prior Anesthesia Without Reaction Other Type of Anesthesia Reaction Comment: Deneis any known problem with anesthesia in past Family History of Anesthesia Reaction: No Transfusion History: No Prior Transfusion(s) - Review of Systems General: Other ([place]) Pulmonary: Other (past smoker) Cardiovascular: Other (CV disease; s/p R BKA, PCI x1, and on Equis (off last 3 days), and IDDM) Gastrointestinal: Difficulty Swallowing Neurological: Difficulty Walking, Gait Disturbance (due to R BKA) - Physical Assessment NPO Status Date: 07/20/17 NPO Status Time: 22:00 Height: 5 ft 5 in Weight: 193 lb ASA Class: 3 Mental Status: Alert & Oriented x3 Airway Class: Mallampati = 1 Dentition: Reports: Normal Dentition Thyro-Mental Finger Breadths: 3 Mouth Opening Finger Breadths: 3 ROM/Head Extension: Full Lungs: Clear to Auscultation, Normal Respiratory Effort Cardiovascular: Regular Rate, Regular Rhythm, No Murmurs - Lab Values: Laboratory Last Values Urine HCG, Qual NEGATIVE (NEGATIVE) 07/21/17 08:49 - Allergies Allergies/Adverse Reactions: Allergies Allergy/AdvReac Type Severity Reaction Status Date / Time prednisone Allergy Mild Nausea Verified 07/18/17 08:10 doxycycline Allergy Hives Verified 07/18/17 08:10 - Blood Blood Available: No Product(s) Available: None - Anesthesia Plan Beta Devika: Metoprolol Med Last Dose Date: 07/21/17 Med Last Dose Time: 07:00 - Acknowledgements Anesthesia Type Planned: MAC Pt an Appropriate Candidate for the Planned Anesthesia: Yes Alternatives and Risks of Anesthesia Discussed w Pt/Guardian: Yes Pt/Guardian Understands and Agrees with Anesthesia Plan: Yes PreAnesthesia Questionnaire HEENT 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: Impaired Vision Other HEENT History: wears glasses, Cardiovascular 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: Angina, Blood Clots/VTE/DVT, High Cholesterol, Hypertension, [place] Other Cardiovascular History: hx of [place] with cardiac stenting 1 year ago, blood clots to rt leg prior to below the knee amputation Respiratory 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: Asthma, Bronchitis, Recurrent, COPD, Pneumonia, Recurrent Other Respiratory History: COPD with Nebulizer treatments and inhaler, Hx of bronchitis annd pneumonia Gastrointestinal 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: Colon Polyp, GERD, Hiatal Hernia Genitourinary 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: 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 OB/BYN History: Cyst in ovaries Musculoskeletal 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: Arthritis Other Musculoskeletal History: rt below the knee amputation Neurological History: Reports: Neuropathy, Diabetic Psychiatric History: Reports: None Endocrine/Metabolic History: Reports: IDDM, Obesity/BMI 30+ Hematologic History: Reports: Anemia Immunologic History: Reports: None Oncologic (Cancer) History: Reports: None Dermatologic History: Reports: None - Infectious Disease History Infectious Disease History: Reports: Chicken Pox, Measles - Past Surgical History Head Surgeries/Procedures: Reports: None HEENT Surgical History: Reports: Myringotomy w Tube(s) Other HEENT Surgeries/Procedures: tube placement Cardiovascular Surgical History: Reports: Coronary Artery Stent Other Cardiovascular Surgeries/Procedures: 2014 Respiratory Surgical History: Reports: None GI Surgical History: Reports: Cholecystectomy, Colonoscopy, EGD Female Surgical History: Reports: None Endocrine Surgical History: Reports: None Neurological Surgical History: Reports: None Musculoskeletal Surgical History: Reports: Other (See Below) Other Musculoskeletal Surgeries/Procedures:: rt below the knee amputation Oncologic Surgical History: Reports: None Dermatological Surgical History: Reports: None - SUBSTANCE USE Smoking Status *Q: Former Smoker Tobacco Use Within Last Twelve Months: Cigarettes Second Hand Smoke Exposure: No Days Per Week of Alcohol Use: 0 Recreational Drug Use History: No - HOME MEDS Home Medications: Home Meds Aspirin [Adeel Chewable Aspirin] 81 mg PO DAILY 07/26/14 [History] Nitroglycerin [Nitrostat] 1 tab SL ASDIRECTED PRN 03/04/15 [History] Apixaban [Eliquis] 5 mg PO BID 01/21/17 [History] Gabapentin [Neurontin] 600 mg PO TID 01/21/17 [History] Insulin Detemir [Levemir] 52 units SQ BEDTIME 01/21/17 [History] Albuterol Sulfate 1 unit NEB ASDIRECTED PRN 07/18/17 [History] Albuterol Sulfate [Proair Hfa] 2 puff INH QID PRN 07/18/17 [History] Diltiazem HCl [Dilt-Xr] 180 mg PO DAILY 07/18/17 [History] Fenofibrate Nanocrystallized [Fenofibrate] 145 mg PO DAILY 07/18/17 [History] Glycopyrrolate/Formoterol Fum [Bevespi Aerosphere Inhaler] 2 puff INH BID [History] Insulin Aspart [NovoLOG] 1 injection SUBCUT ASDIRECTED 07/18/17 [History] Lisinopril 5 mg PO DAILY 07/18/17 [History] Magnesium Oxide [Magnesium] 400 mg PO DAILY 07/18/17 [History] Metoprolol Succinate 25 mg PO DAILY 07/18/17 [History] Omeprazole 20 mg PO DAILY 07/18/17 [History] Oxymetazoline [Afrin Original 0.05% Nasal [place]] 1 spray NASBOTH BID 07/18/17 [ History] Ranitidine HCl 150 mg PO ASDIRECTED PRN 07/18/17 [History] atorvaSTATin Calcium [Atorvastatin Calcium] 40 mg PO BEDTIME 07/18/17 [History] metFORMIN HCl [Metformin HCl] 1,000 mg PO BID 07/18/17 [History] traMADol [Ultram] 50 mg PO ASDIRECTED PRN 07/18/17 [History] - CURRENT (IN HOUSE) MEDS Current Meds: Current Medications Lactated Ringer's (Ringers, Lactated) 1,000 mls @ 125 mls/hr IV ASDIRECTED TIFFANIE Last Admin: 07/21/17 09:09 Dose: 125 mls/hr Discontinued Medications Lidocaine (Xylocaine-Mpf 2%) Confirm Administered Dose 5 ml .ROUTE .STK-MED ONE Stop: 07/21/17 08:46 Propofol (Diprivan 20 Ml) Confirm Administered Dose 400 mg .ROUTE .STK-MED ONE Stop: 07/21/17 08:46
--- NOTE | 2017-07-21 10:27 | PCM.POSTAN ---
POST ANESTHESIA ASSESSMENT - MENTAL STATUS Mental Status: Alert, Oriented - RESPIRATORY Respiratory Status: Respiratory Rate WNL, Airway Patent, O2 Saturation Stable - CARDIOVASCULAR CV Status: Pulse Rate WNL, Blood Pressure Stable - GASTROINTESTINAL GI Status: No Symptoms - PAIN Pain Score: 0 - POST OP HYDRATION Hydration Status: Adequate & Stable - OBSERVATIONS Free Text/Narrative:: no anesthesia problems
--- NOTE | 2017-07-21 10:46 | PCM48HPAN ---
Post Anesthesia Note - EVALUATION WITHIN 48HRS OF ANESTHETIC Vital Signs in Normal Range: Yes Patient Participated in Evaluation: Yes Respiratory Function Stable: Yes Airway Patent: Yes Cardiovascular Function Stable: Yes Hydration Status Stable: Yes Pain Control Satisfactory: Yes Nausea and Vomiting Control Satisfactory: Yes Mental Status Recovered: Yes Resp Rate: 17 - COMMENTS/OBSERVATIONS Free Text/Narrative:: BS at 300+, she states that she has been as high as 600in last 2 weeks, resistance to insulin dosage has been a problem, she will treat and reassess at home.
--- NOTE | 2017-07-21 10:47 | PCM.OPNOTE ---
- General Post-Op/Procedure Note Date of Surgery/Procedure: 07/21/17 Operative Procedure(s): egd w bx Findings: see dict [id number] Pre Op Diagnosis: gerd and dysphagia Post-Op Diagnosis: Same Anesthesia Technique: Moderate Sedation Primary Surgeon: Uri Thurston Pathology: egd bx Complications: None Condition: Good
[2017-07-21 11:48] VITALS: BP 100/57
--- NOTE | 2017-07-21 12:34 | OR ---
SURGEON: Uri Thurston MD DATE OF PROCEDURE: 07/21/2017 PREOPERATIVE DIAGNOSES: 1. Gastroesophageal reflux disease. 2. Dysphagia. POSTOPERATIVE DIAGNOSIS: Acid reflux. PROCEDURE PERFORMED: EGD with biopsy. PROCEDURE IN DETAIL: EGD: The patient was taken to the endoscopy room, and with the GRADES 7 8 TUTOR, Diprivan was administered. A well-lubricated EGD scope was gently inserted through the oropharynx, down the esophagus, passing through the gastroesophageal junction, into the stomach. The mucosa was examined upon the passage. Any etiology will be noted. Once in the stomach, we continued to advance to the distal antrum, passed through the pylorus into the second portion of the duodenum. Again, the mucosa was examined for any abnormality and etiology. The scope was then retrieved back to the stomach and then retroflexed to look at the fundus of the stomach. If a biopsy was indicated, we will biopsy the antrum, body, and gastroesophageal junction. The air will be sucked out while the scope is retrieved to reduce the patient's discomfort. The patient tolerated the procedure well. There were no intraoperative complications. Dr. Thurston was present through the whole procedure. Prior to surgery, a time-out had been called, the patient identified, procedure identified and antibiotic administered. FINDINGS: 1. The patient is easily sedated with GRADES 7 8 TUTOR and Diprivan. The patient is soundly snoring. 2. Oropharynx and proximal esophagus are free of disease and no stricture or inflammation. Distal esophagus shows mild salmon color change consistent with acid reflux. Stomach full of bile. No blood, no food, no ulcer, and antrum is a little bit inflamed. Duodenum was grossly normal. Retroflexed to look at the fundus of stomach, there was no hiatal hernia. Biopsy done at antrum and sucked out the gas while scope pulling out. DENISE / [facility] /[id number]
== END 2017-07-21 10:50 | disposition home or self-care (01) ==
LOC: MW.SDS 08:46
PROVIDERS: ATTEND Surgery
DX: K21.9 Gastro-esophageal reflux disease without esophagitis (principal); K29.50 Unspecified chronic gastritis without bleeding; R13.10 Dysphagia, unspecified; E11.65 Type 2 diabetes mellitus with hyperglycemia; J44.9 Chronic obstructive pulmonary disease, unspecified; I10 Essential (primary) hypertension; E78.5 Hyperlipidemia, unspecified; I25.10 Atherosclerotic heart disease of native coronary artery without angina pectoris; I25.2 Old myocardial infarction; Z87.891 Personal history of nicotine dependence; Z79.01 Long term (current) use of anticoagulants; Z79.84 Long term (current) use of oral hypoglycemic drugs; Z79.82 Long term (current) use of aspirin; Z79.899 Other long term (current) drug therapy; Z88.1 Allergy status to other antibiotic agents; Z88.8 Allergy status to other drugs, medicaments and biological substances
CPT/HCPCS: 43239; 81025; 82962; J7120; J2704

== ENCOUNTER 2017-09-05 20:44 | Observation (INO) | payer MEDICAID ==
[2017-09-05] MEDS ORDERED: Aspirin 81 MG Tab.Chew PO ONE (20:49)
[2017-09-05] MEDS ORDERED: Sodium Chloride 0.9% 2.5 ML Syringe FLUSH PRN (20:49)
[2017-09-05] MEDS ORDERED: Sodium Chloride 0.9% 10 ML Syringe FLUSH PRN (20:49)
--- NOTE | 2017-09-05 21:05 | EDM.PDOC ---
ED HPI GENERAL MEDICAL PROBLEM - General Chief Complaint: Chest Pain Stated Complaint: CHEST PAIN, SHORTNESS OF BREATH Time Seen by Provider: 09/05/17 20:59 Source of Information: Reports: Patient History Limitations: Reports: No Limitations - History of Present Illness INITIAL COMMENTS - FREE TEXT/NARRATIVE: HISTORY AND PHYSICAL: History of present illness: Patient is a 42-year-old female who presents to the emergency room today with complaints of chest pain and dizziness which started 2 hours prior to arrival. She states she was resting in her recliner when she started to have midsternal chest pain accompanied with slight shortness of breath. Soon after she felt dizzy and generally unwell. She denies any fever, chills, diaphoresis, cough, abdominal pain, nausea, vomiting, diarrhea or constipation. Upon EMS arrival they did give her 324 mg of chewable aspirin and sublingual nitroglycerin prior to arrival. Patient states that the nitroglycerin did not alleviate her chest pain and she currently has a frontal headache which started after receiving the nitroglycerin. Patient states that she does have left lower extremity pain and mild edema for the past week. She states that she has in trying to get into see her primary care provider for this complaint. She denies any injury or trauma of the affected extremity. 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 Past medical history of COPD, HTN, insulin dependant DM, GERD, CAD with stent, and BKA. Review of systems: As per history of present illness and below otherwise all systems reviewed and negative. Past medical history: As per history of present illness and as reviewed below otherwise noncontributory. Surgical history: As per history of present illness and as reviewed below otherwise noncontributory. Social history: No reported history of drug or alcohol abuse. Family history: As per history of present illness and as reviewed below otherwise noncontributory. Physical exam: General: Developed and well-nourished 42-year-old female. Alert and oriented. Nontoxic appearing and in no acute distress. HEENT: Atraumatic, normocephalic, pupils equal and reactive bilaterally, negative for conjunctival pallor or scleral icterus, mucous membranes moist, throat clear, neck supple, nontender, trachea midline. No drooling or trismus noted. No meningeal signs Lungs: Clear to auscultation, breath sounds equal bilaterally, chest nontender. Heart: S1S2, regular rate and rhythm without overt murmur Abdomen: Soft, nondistended, nontender. Negative for masses or hepatosplenomegaly. Negative for costovertebral tenderness. Pelvis: Stable nontender. Genitourinary: Deferred. Rectal: This was done with consent. Good rectal tone. Negative hemoccult stool. Skin: Intact, warm, dry. No lesions or rashes noted. Extremities: Atraumatic, moves all per self without difficulty or deficets. She does have a BKA of the right (normal variance). She is negative for cords or calf pain. Trace edema noted to LLE. Strong pedal pulse. Neurovascular unremarkable. Neuro: Awake, alert, oriented. Cranial nerves II through XII unremarkable. Cerebellum unremarkable. Motor and sensory unremarkable throughout. Exam nonfocal. Notes: A transthoracic echocardiogram was completed on 07/14/[address] Ng, Industrial [employer]. The report states there is probable normal EF 55%, trace tricuspid valve regurgitation. It does note that there was some technical difficulties due to poor echo windows. Hemoglobin today is 6.9, a hemoglobin that was done on 04/03/2017 was 9.9. Patient denies noting any blood in her emesis or stool. She does not have any abdominal pain and no previous history of GI bleeds. She did recently have a EGD done by Dr. Thurston which she was diagnosed with GERD. Dr. Valladares he was consulted on this case and is agreeable to keeping her with telemetry. One unit of blood has been ordered. Patient is aware and agreeable to plan of care. Diagnostics: CBC, CMP, troponin, EKG, one view chest x-ray, type and screen Therapeutics: Saline lock Impression: Chest pain r/o MN Anemia Plan: Observation admission with telemetry Definitive disposition and diagnosis as appropriate pending reevaluation and review of above. middle chest Pain Score (Numeric/FACES): 8 - Related Data Allergies Allergy/AdvReac Type Severity Reaction Status Date / Time prednisone Allergy Mild Nausea Verified 09/05/17 20:56 doxycycline Allergy Hives Verified 09/05/17 20:56 Home Meds: Home Meds Aspirin [Adeel Chewable Aspirin] 81 mg PO DAILY 07/26/14 [History] Nitroglycerin [Nitrostat] 1 tab SL ASDIRECTED PRN 03/04/15 [History] Apixaban [Eliquis] 5 mg PO BID 01/21/17 [History] Gabapentin [Neurontin] 600 mg PO TID 01/21/17 [History] Insulin Detemir [Levemir] 30 units SQ BEDTIME 01/21/17 [History] Albuterol Sulfate 1 unit NEB ASDIRECTED PRN 07/18/17 [History] Albuterol Sulfate [Proair Hfa] 2 puff INH QID PRN 07/18/17 [History] Diltiazem HCl [Dilt-Xr] 180 mg PO DAILY 07/18/17 [History] Fenofibrate Nanocrystallized [Fenofibrate] 145 mg PO DAILY 07/18/17 [History] Glycopyrrolate/Formoterol Fum [Bevespi Aerosphere Inhaler] 2 puff INH BID [History] Insulin Aspart [NovoLOG] 1 injection SUBCUT ASDIRECTED 07/18/17 [History] Lisinopril 5 mg PO DAILY 07/18/17 [History] Magnesium Oxide [Magnesium] 400 mg PO DAILY 07/18/17 [History] Metoprolol Succinate 25 mg PO DAILY 07/18/17 [History] Omeprazole 20 mg PO DAILY 07/18/17 [History] atorvaSTATin Calcium [Atorvastatin Calcium] 40 mg PO BEDTIME 07/18/17 [History] traMADol [Ultram] 50 mg PO BID PRN 07/18/17 [History] Past Medical History HEENT History: Reports: Impaired Vision Other HEENT History: wears glasses, ear infection Cardiovascular History: Reports: Angina, High Cholesterol, Hypertension, MN Other Cardiovascular History: hx of MN with cardiac stenting 1 year ago Respiratory History: Reports: Asthma, Bronchitis, Recurrent, COPD, Pneumonia, Recurrent Other Respiratory History: Tobacco dependence, COPD with Nebulizer treatments and inhaler, Hx of bronchitis annd pneumonia Gastrointestinal History: Reports: GERD, Hiatal Hernia Other Gastrointestinal History: abd pain Genitourinary History: Reports: None [employer] History: Reports: Other OB/BYN History: Cyst in ovaries Musculoskeletal History: Reports: Arthritis Other Musculoskeletal History: right foot and ankle. R leg amputation Neurological History: Reports: Other (See Below) Other Neuro History: hx: Headaches Psychiatric History: Reports: None Endocrine/Metabolic History: Reports: Diabetes, Type II, Obesity/BMI 30+ Hematologic History: Reports: Anemia Immunologic History: Reports: None Oncologic (Cancer) History: Reports: None Dermatologic History: Reports: None, Urticaria Other Dermatologic History: current rash on left arm - Infectious Disease History Infectious Disease History: Reports: Chicken Pox, Measles - Past Surgical History GI Surgical History: Reports: Cholecystectomy Musculoskeletal Surgical History: Reports: None Social & Family History - Family History Family Medical History: Noncontributory HEENT: Reports: Cataract, Impaired Vision, Otitis Media, Sinusitis Cardiac: Reports: High Cholesterol, Hypertension, MN Other Cardiac Family History: heart problems maternal and paternal sides Respiratory: Reports: Asthma, COPD, Sleep Apnea GI: Reports: None Musculoskeletal: Reports: Arthritis, Gout Neurological: Reports: CVA Endocrine/Metabolic: Reports: Diabetes, Type I, Diabetes, type II, Hyperthyroidism, Obesity/MBI 30+ Hematologic: Reports: Anemia Oncologic: Reports: Lung - Caffeine Use Caffeine Use: Reports: Coffee, Soda ED ROS GENERAL - Review of Systems Review Of Systems: ROS reveals no pertinent complaints other than HPI. ED EXAM, GENERAL - Physical Exam Exam: See Below (see dictation) Course - Vital Signs Last Recorded V/S: Last Vital Signs Temp 98.6 F 09/05/17 20:51 Pulse 106 H 09/05/17 20:51 Resp 20 09/05/17 20:51 BP 124/63 09/05/17 20:51 Pulse Ox 99 09/05/17 20:51 Orthostatic Blood Pressure [ 121/68 Standing] Orthostatic Blood Pressure [ 129/68 Sitting] Orthostatic Blood Pressure [ 118/58 Supine] - Orders/Labs/Meds Orders: Active Orders 24 hr Category Date Time Status Patient Status [ADT] Stat ADT 09/05/17 21:44 Active EKG Documentation Completion [RC] STAT Care 09/05/17 20:49 Active Orthostatic Vital Signs [RC] ASDIRECTED Care 09/05/17 21:12 Active Chest 1V Frontal [CR] Stat Exams 09/05/17 20:49 Taken RED BLOOD CELLS LP [BBK] Stat Lab 09/05/17 21:40 Ordered TYPE AND SCREEN [BBK] Stat Lab 09/05/17 21:40 Ordered UA W/MICROSCOPIC [URIN] Stat Lab 09/05/17 21:12 Ordered Sodium Chloride 0.9% [Saline Flush] Med 09/05/17 20:49 Active 10 ml FLUSH ASDIRECTED PRN Sodium Chloride 0.9% [Saline Flush] Med 09/05/17 20:49 Active 2.5 ml FLUSH ASDIRECTED PRN Saline Lock Insert [OM.PC] Stat [facility] 09/05/17 20:49 Ordered Transfuse PRBC [Transfuse Red Blood Cells] [COMM] Stat [facility] 09/05/17 21:41 Ordered Medication Orders Sodium Chloride (Saline Flush) 10 ml FLUSH ASDIRECTED PRN PRN Reason: Keep Vein Open Sodium Chloride (Saline Flush) 2.5 ml FLUSH ASDIRECTED PRN PRN Reason: Keep Vein Open Labs: Laboratory Tests 09/05/17 09/05/17 09/05/17 Range/Units 20:58 20:58 20:58 WBC 8.39 (4.0-11.0) K/uL RBC 4.20 L (4.30-5.90) M/uL Hgb 6.9 L (12.0-16.0) g/dL Hct 26.0 L (36.0-46.0) % MCV 61.9 L (80.0-98.0) fL MCH 16.4 L (27.0-32.0) pg MCHC 26.5 L (31.0-37.0) g/dL RDW Std Deviation 46.4 (28.0-62.0) fl RDW Coeff of Demond 21 H (11.0-15.0) % Plt Count 201 (150-400) K/uL Neut % (Auto) 54.7 (48.0-80.0) % Lymph % (Auto) 34.7 (16.0-40.0) % [place] % (Auto) 9.3 (0.0-15.0) % Eos % (Auto) 0.8 (0.0-7.0) % Baso % (Auto) 0.5 (0.0-1.5) % Neut # (Auto) 4.6 (1.4-5.7) K/uL Lymph # (Auto) 2.9 H (0.6-2.4) K/uL [place] # (Auto) 0.8 (0.0-0.8) K/uL Eos # (Auto) 0.1 (0.0-0.7) K/uL Baso # (Auto) 0.0 (0.0-0.1) K/uL Nucleated RBC % 0.6 /100WBC Nucleated RBCs # 0 K/uL Sodium 140 (136-145) mmol/L Potassium 3.2 L (3.5-5.1) mmol/L Chloride 104 (98-107) mmol/L Carbon Dioxide 25.2 (21.0-32.0) mmol/L BUN 11 (7.0-18.0) mg/dL Creatinine 0.8 (0.6-1.0) mg/dL Est Cr Clr Drug Dosing 81.59 mL/min Estimated GFR (MDRD) > 60.0 ml/min Glucose 125 H (74-106) mg/dL Calcium 8.3 L (8.5-10.1) mg/dL Total Bilirubin 0.4 (0.2-1.0) mg/dL AST 17 (15-37) IU/L ALT 17 (14-63) IU/L Alkaline Phosphatase 81 (46-116) U/L Troponin I < 0.050 (0.000-0.056) ng/mL B-Natriuretic Peptide 54 (<100) PG/ML Total Protein 6.8 (6.4-8.2) g/dL Albumin 3.1 L (3.4-5.0) g/dL Globulin 3.7 H (2.0-3.5) g/dL Albumin/Globulin Ratio 0.8 L (1.3-2.8) Meds: Medications Generic Name Dose Route Start Last Admin Trade Name Robyn PRN Reason Stop Dose Admin Sodium Chloride 10 ml 09/05/17 20:49 Saline Flush FLUSH ASDIRECTED PRN Keep Vein Open Sodium Chloride 2.5 ml 09/05/17 20:49 Saline Flush FLUSH ASDIRECTED PRN Keep Vein Open Discontinued Medications Generic Name Dose Route Start Last Admin Trade Name Robyn PRN Reason Stop Dose Admin Aspirin 324 mg 09/05/17 20:49 09/05/17 21:01 Aspirin PO 09/05/17 20:50 Not Given ONETIME ONE Pantoprazole Sodium 80 mg 09/05/17 21:45 Protonix Iv IVPUSH 09/05/17 21:46 .BOLUS ONE Departure - Departure Time of Disposition: 21:57 Disposition: Refer to Observation Clinical Impression: Chest pain, rule out acute myocardial infarction Anemia Qualifiers: Anemia type: unspecified type Qualified Code(s): D64.9 - Anemia, unspecified Referrals: Kang Ramirez MD [Primary Care Provider] - Forms: ED Department Discharge - My Orders Last 24 Hours: My Active Orders 09/05/17 20:49 EKG Documentation Completion [RC] STAT Chest 1V Frontal [CR] Stat Sodium Chloride 0.9% [Saline Flush] 10 ml FLUSH ASDIRECTED PRN Sodium Chloride 0.9% [Saline Flush] 2.5 ml FLUSH ASDIRECTED PRN Saline Lock Insert [OM.PC] Stat 09/05/17 21:12 Orthostatic Vital Signs [RC] ASDIRECTED UA W/MICROSCOPIC [URIN] Stat - Assessment/Plan Last 24 Hours: My Active Orders 09/05/17 20:49 EKG Documentation Completion [RC] STAT Chest 1V Frontal [CR] Stat Sodium Chloride 0.9% [Saline Flush] 10 ml FLUSH ASDIRECTED PRN Sodium Chloride 0.9% [Saline Flush] 2.5 ml FLUSH ASDIRECTED PRN Saline Lock Insert [OM.PC] Stat 09/05/17 21:12 Orthostatic Vital Signs [RC] ASDIRECTED UA W/MICROSCOPIC [URIN] Stat
[2017-09-05 21:30] LABS: CHLORIDE,CL 104 mmol/L (98-107); SODIUM,NA 140 mmol/L (136-145)
[2017-09-05] MEDS ORDERED: Pantoprazole 40 MG Vial IVPUSH ONE (21:45)
[2017-09-05] MEDS ORDERED: Morphine 2 MG/ML Syringe IVPUSH PRN (23:43)
[2017-09-06] MEDS: diphenhydrAMINE 50 MG/ML SDV IVPUSH PRN ×2 (00:46→11:53)
[2017-09-06 02:42] LABS: CHLORIDE,CL 106 mmol/L (98-107); SODIUM,NA 142 mmol/L (136-145)
[2017-09-06] MEDS: Insulin Aspart 100 Units/ML 3 ML Pen SUBCUT SCH ×4 (06:00→17:47)
[2017-09-06 09:10] LABS: CHLORIDE,CL 106 mmol/L (98-107); SODIUM,NA 139 mmol/L (136-145)
--- NOTE | 2017-09-06 10:22 | PCM.HP ---
<Mick Figueroa - Last Filed: 09/06/17 10:47> H&P History of Present Illness - General Date of Service: 09/06/17 Admit Problem/Dx: Admission Diagnosis/Problem Admission Diagnosis/Problem Anemia Source of Information: Patient History Limitations: Reports: No Limitations - History of Present Illness Initial Comments - Free Text/Narative: This is a 42F with a hx of CAD w/stent, T2DM, HLD, that presented to the ER w/ a CC of chest pain, dizziness that began yesterday. She tells me that the dizziness has been constant, regardless of sitting or standing. Her chest pain is located centrally, non-pleuritic, and unrelieved by nitro in the ER. The pain is nonradiating. She received a full dose aspirin. Talking to the patient, she tells me that for the past 4 months now, shes been dealing with constant issues with decreased appetite, nausea, and vomiting and has been working with her PCP and surgeon to find an etiology which has so far been negative. She has undergone an EGD w/biopsy and gastric emptying study for possible gastroparesis that was also negative. This morning, she tells me that her pain and dizziness has improved considerably, but still minimally present. 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 Bilateral Leg Pain Score (Numeric/FACES): 2 middle chest Pain Score (Numeric/FACES): 4 - Related Data Allergies/Adverse Reactions: Allergies Allergy/AdvReac Type Severity Reaction Status Date / Time prednisone Allergy Mild Nausea Verified 09/05/17 20:56 doxycycline Allergy Hives Verified 09/05/17 20:56 Home Medications: Home Meds Aspirin [Adeel Chewable Aspirin] 81 mg PO DAILY 07/26/14 [History] Nitroglycerin [Nitrostat] 1 tab SL ASDIRECTED PRN 03/04/15 [History] Apixaban [Eliquis] 5 mg PO BID 01/21/17 [History] Gabapentin [Neurontin] 600 mg PO TID 01/21/17 [History] Insulin Detemir [Levemir] 30 units SQ BEDTIME 01/21/17 [History] Albuterol Sulfate 1 unit NEB ASDIRECTED PRN 07/18/17 [History] Albuterol Sulfate [Proair Hfa] 2 puff INH QID PRN 07/18/17 [History] Diltiazem HCl [Dilt-Xr] 180 mg PO DAILY 07/18/17 [History] Fenofibrate Nanocrystallized [Fenofibrate] 145 mg PO DAILY 07/18/17 [History] Glycopyrrolate/Formoterol Fum [Bevespi Aerosphere Inhaler] 2 puff INH BID [History] Insulin Aspart [NovoLOG] 1 injection SUBCUT ASDIRECTED 07/18/17 [History] Lisinopril 5 mg PO DAILY 07/18/17 [History] Magnesium Oxide [Magnesium] 400 mg PO DAILY 07/18/17 [History] Metoprolol Succinate 25 mg PO DAILY 07/18/17 [History] Omeprazole 20 mg PO DAILY 07/18/17 [History] atorvaSTATin Calcium [Atorvastatin Calcium] 40 mg PO BEDTIME 07/18/17 [History] traMADol [Ultram] 50 mg PO BID PRN 07/18/17 [History] Past Medical History HEENT History: Reports: Impaired Vision Other HEENT History: wears glasses, ear infection Cardiovascular History: Reports: Angina, High Cholesterol, Hypertension, IA Other Cardiovascular History: hx of IA with cardiac stenting 1 year ago Respiratory History: Reports: Asthma, Bronchitis, Recurrent, COPD, Pneumonia, Recurrent Other Respiratory History: Tobacco dependence, COPD with Nebulizer treatments and inhaler, Hx of bronchitis annd pneumonia Gastrointestinal History: Reports: GERD, Hiatal Hernia Other Gastrointestinal History: abd pain Genitourinary History: Reports: None 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 R leg amputation Neurological History: Reports: Other (See Below) Other Neuro History: hx: Headaches Psychiatric History: Reports: None Endocrine/Metabolic History: Reports: Diabetes, Type II, Obesity/BMI 30+ Hematologic History: Reports: Anemia Immunologic History: Reports: None Oncologic (Cancer) History: Reports: None Dermatologic History: Reports: None, Urticaria Other Dermatologic History: current rash on left arm - Infectious Disease History Infectious Disease History: Reports: Chicken Pox, Measles - Past Surgical History GI Surgical History: Reports: Cholecystectomy Endocrine Surgical History: Reports: None Musculoskeletal Surgical History: Reports: None Other Musculoskeletal Surgeries/Procedures:: R leg amputation Social & Family History - Family History Family Medical History: Noncontributory HEENT: Reports: Cataract, Impaired Vision, Otitis Media, Sinusitis Cardiac: Reports: High Cholesterol, Hypertension, IA Other Cardiac Family History: heart problems maternal and paternal sides Respiratory: Reports: Asthma, COPD, Sleep Apnea GI: Reports: None Musculoskeletal: Reports: Arthritis, Gout Neurological: Reports: CVA Psychiatric: Reports: None Endocrine/Metabolic: Reports: Diabetes, Type I, Diabetes, type II, Hyperthyroidism, Obesity/MBI 30+ Hematologic: Reports: Anemia Oncologic: Reports: Lung - Tobacco Use Smoking Status *Q: Former Smoker Used Tobacco, but Quit: Yes Month/Year Tobacco Last Used: 12/2016 - Caffeine Use Caffeine Use: Reports: Coffee, Soda Caffeine Use Comment: "sometimes" - Alcohol Use Days Per Week of Alcohol Use: 1 Number of Drinks Per Day: 1 Total Drinks Per Week: 1 - Recreational Drug Use Recreational Drug Use: No H&P Review of Systems - Review of Systems: Review Of Systems: See Below General: Reports: No Symptoms HEENT: Reports: No Symptoms Pulmonary: Reports: No Symptoms Cardiovascular: Reports: No Symptoms Gastrointestinal: Reports: Bloody Stool, Nausea, Vomiting. Denies: Constipation , Diarrhea Genitourinary: Reports: No Symptoms Musculoskeletal: Reports: No Symptoms Skin: Reports: No Symptoms Psychiatric: Reports: No Symptoms Neurological: Reports: No Symptoms Hematologic/Lymphatic: Reports: No Symptoms Immunologic: Reports: No Symptoms Exam - Exam Exam: See Below - Vital Signs Vital Signs: Last Vital Signs Temp 36.4 C 09/06/17 08:00 Pulse 94 09/06/17 08:00 Resp 16 09/06/17 08:00 BP 110/65 09/06/17 08:00 Pulse Ox 97 09/06/17 08:00 Orthostatic Blood Pressure [ 121/68 Standing] Orthostatic Blood Pressure [ 129/68 Sitting] Orthostatic Blood Pressure [ 118/58 Supine] Weight: 205 lb 12.8 oz - Exam General: Alert, Oriented, 4 HEENT: PERRLA, Hearing Intact, Mucosa Moist & [place], Nares Patent, Normal Nasal Septum, Posterior Pharynx Clear, Conjunctiva Clear, EOMI, EACs Clear, TMs Clear Neck: Supple, Trachea Midline, 2 Lungs: Clear to Auscultation, Normal Respiratory Effort Cardiovascular: Regular Rate, Regular Rhythm GI/Abdominal Exam: Normal Bowel Sounds, Soft, Non-Tender, No Organomegaly, No Distention, No Abnormal Bruit, No Mass, Pelvis Stable Rectal (Female) Exam: Normal Exam, Normal Rectal Tone Back Exam: Normal Inspection, Full Range of Motion, NT Extremities: Normal Inspection, Normal Range of Motion, Non-Tender, No Pedal Edema, Normal Capillary Refill Peripheral Pulses: 2+: Dorsalis Pedis (L), Dorsalis Pedis (R) Skin: Warm, Dry, Intact Neurological: Cranial Nerves Intact, Reflexes Equal Bilateral Neuro Extensive - Mental Status: Alert, Oriented x3, Normal Mood/Affect, Normal Cognition Neuro Extensive - Motor, Sensory, Reflexes: CN II-XII Intact, Normal Gait, Normal Reflexes DTR: 2+: Achilles (L), Achilles (R) Psychiatric: Alert, Normal Affect, Normal Mood - Patient Data Lab Results Last 24 hrs: Laboratory Results - last 24 hr 09/05/17 09/05/17 09/05/17 Range/Units 20:58 20:58 20:58 WBC 8.39 (4.0-11.0) K/uL RBC 4.20 L (4.30-5.90) M/uL Hgb 6.9 L (12.0-16.0) g/dL Hct 26.0 L (36.0-46.0) % MCV 61.9 L (80.0-98.0) fL MCH 16.4 L (27.0-32.0) pg MCHC 26.5 L (31.0-37.0) g/dL RDW Std Deviation 46.4 (28.0-62.0) fl RDW Coeff of Demond 21 H (11.0-15.0) % Plt Count 201 (150-400) K/uL Neut % (Auto) 54.7 (48.0-80.0) % Lymph % (Auto) 34.7 (16.0-40.0) % Sterling % (Auto) 9.3 (0.0-15.0) % Eos % (Auto) 0.8 (0.0-7.0) % Baso % (Auto) 0.5 (0.0-1.5) % Neut # (Auto) 4.6 (1.4-5.7) K/uL Lymph # (Auto) 2.9 H (0.6-2.4) K/uL Sterling # (Auto) 0.8 (0.0-0.8) K/uL Eos # (Auto) 0.1 (0.0-0.7) K/uL Baso # (Auto) 0.0 (0.0-0.1) K/uL Nucleated RBC % 0.6 /100WBC Nucleated RBCs # 0 K/uL Smear Path Review Absolute Retic (20-80) K/uL Percent Retic (0.5-1.5) % Immature Retic Fraction % Sodium 140 (136-145) mmol/L Potassium 3.2 L (3.5-5.1) mmol/L Chloride 104 (98-107) mmol/L Carbon Dioxide 25.2 (21.0-32.0) mmol/L BUN 11 (7.0-18.0) mg/dL Creatinine 0.8 (0.6-1.0) mg/dL Est Cr Clr Drug Dosing 81.59 mL/min Estimated GFR (MDRD) > 60.0 ml/min Glucose 125 H (74-106) mg/dL POC Glucose (60-110) mg/dL Hemoglobin A1c (4.5-6.2) % Calcium 8.3 L (8.5-10.1) mg/dL Iron (50-175) ug/dL TIBC (250-450) ug/dL % Saturation (20-55) % Ferritin (8-252) ng/mL Total Bilirubin 0.4 (0.2-1.0) mg/dL AST 17 (15-37) IU/L ALT 17 (14-63) IU/L Alkaline Phosphatase 81 (46-116) U/L Troponin I < 0.050 (0.000-0.056) ng/mL B-Natriuretic Peptide 54 (<100) PG/ML Total Protein 6.8 (6.4-8.2) g/dL Albumin 3.1 L (3.4-5.0) g/dL Globulin 3.7 H (2.0-3.5) g/dL Albumin/Globulin Ratio 0.8 L (1.3-2.8) Lipase (73-393) U/L Vitamin B12 (193-986) pg/mL Folate (8.60-58.90) ng/mL Urine Color Urine Appearance Urine pH (5.0-8.0) Ur Specific [place] (1.001-1.035) Urine Protein (NEGATIVE) mg/dL Urine Glucose (UA) (NEGATIVE) mg/dL Urine Ketones (NEGATIVE) mg/dL Urine Occult Blood (NEGATIVE) Urine Nitrite (NEGATIVE) Urine Bilirubin (NEGATIVE) Urine Ictotest Urine Urobilinogen (<2.0) EU/dL Ur Leukocyte Esterase (NEGATIVE) Urine RBC (0-2/HPF) Urine WBC (0-5/HPF) Ur Epithelial Cells (NONE-FEW) Urine Bacteria (NEGATIVE) Urine Mucus (NONE-MOD) Blood Type Antibody Screen Crossmatch 09/05/17 09/05/17 09/05/17 Range/Units 20:58 20:58 20:58 WBC (4.0-11.0) K/uL RBC 4.08 L (4.30-5.90) M/uL Hgb (12.0-16.0) g/dL Hct (36.0-46.0) % MCV (80.0-98.0) fL MCH (27.0-32.0) pg MCHC (31.0-37.0) g/dL RDW Std Deviation (28.0-62.0) fl RDW Coeff of Demond (11.0-15.0) % Plt Count (150-400) K/uL Neut % (Auto) (48.0-80.0) % Lymph % (Auto) (16.0-40.0) % Sterling % (Auto) (0.0-15.0) % Eos % (Auto) (0.0-7.0) % Baso % (Auto) (0.0-1.5) % Neut # (Auto) (1.4-5.7) K/uL Lymph # (Auto) (0.6-2.4) K/uL [place] # (Auto) (0.0-0.8) K/uL Eos # (Auto) (0.0-0.7) K/uL Baso # (Auto) (0.0-0.1) K/uL Nucleated RBC % /100WBC Nucleated RBCs # K/uL Smear Path Review Absolute Retic 122.40 H (20-80) K/uL Percent Retic 3.0 H (0.5-1.5) % Immature Retic Fraction 31 % Sodium (136-145) mmol/L Potassium (3.5-5.1) mmol/L Chloride (98-107) mmol/L Carbon Dioxide (21.0-32.0) mmol/L BUN (7.0-18.0) mg/dL Creatinine (0.6-1.0) mg/dL Est Cr Clr Drug Dosing mL/min Estimated GFR (MDRD) ml/min Glucose (74-106) mg/dL POC Glucose (60-110) mg/dL Hemoglobin A1c (4.5-6.2) % Calcium (8.5-10.1) mg/dL Iron 12 L (50-175) ug/dL TIBC 402 (250-450) ug/dL % Saturation 2.99 L (20-55) % Ferritin 4 L (8-252) ng/mL Total Bilirubin (0.2-1.0) mg/dL AST (15-37) IU/L ALT (14-63) IU/L Alkaline Phosphatase (46-116) U/L Troponin I (0.000-0.056) ng/mL B-Natriuretic Peptide (<100) PG/ML Total Protein (6.4-8.2) g/dL Albumin (3.4-5.0) g/dL Globulin (2.0-3.5) g/dL Albumin/Globulin Ratio (1.3-2.8) Lipase 228 (73-393) U/L Vitamin B12 276 (193-986) pg/mL Folate 20.90 (8.60-58.90) ng/mL Urine Color Urine Appearance Urine pH (5.0-8.0) Ur Specific [place] (1.001-1.035) Urine Protein (NEGATIVE) mg/dL Urine Glucose (UA) (NEGATIVE) mg/dL Urine Ketones (NEGATIVE) mg/dL Urine Occult Blood (NEGATIVE) Urine Nitrite (NEGATIVE) Urine Bilirubin (NEGATIVE) Urine Ictotest Urine Urobilinogen (<2.0) EU/dL Ur Leukocyte Esterase (NEGATIVE) Urine RBC (0-2/HPF) Urine WBC (0-5/HPF) Ur Epithelial Cells (NONE-FEW) Urine Bacteria (NEGATIVE) Urine Mucus (NONE-MOD) Blood Type Antibody Screen Crossmatch 09/05/17 09/05/17 09/05/17 Range/Units 20:58 21:49 21:53 WBC (4.0-11.0) K/uL RBC (4.30-5.90) M/uL Hgb (12.0-16.0) g/dL Hct (36.0-46.0) % MCV (80.0-98.0) fL MCH (27.0-32.0) pg MCHC (31.0-37.0) g/dL RDW Std Deviation (28.0-62.0) fl RDW Coeff of Demond (11.0-15.0) % Plt Count (150-400) K/uL Neut % (Auto) (48.0-80.0) % Lymph % (Auto) (16.0-40.0) % [place] % (Auto) (0.0-15.0) % Eos % (Auto) (0.0-7.0) % Baso % (Auto) (0.0-1.5) % Neut # (Auto) (1.4-5.7) K/uL Lymph # (Auto) (0.6-2.4) K/uL [place] # (Auto) (0.0-0.8) K/uL Eos # (Auto) (0.0-0.7) K/uL Baso # (Auto) (0.0-0.1) K/uL Nucleated RBC % /100WBC Nucleated RBCs # K/uL Smear Path Review Absolute Retic (20-80) K/uL Percent Retic (0.5-1.5) % Immature Retic Fraction % Sodium (136-145) mmol/L Potassium (3.5-5.1) mmol/L Chloride (98-107) mmol/L Carbon Dioxide (21.0-32.0) mmol/L BUN (7.0-18.0) mg/dL Creatinine (0.6-1.0) mg/dL Est Cr Clr Drug Dosing mL/min Estimated GFR (MDRD) ml/min Glucose (74-106) mg/dL POC Glucose (60-110) mg/dL Hemoglobin A1c 10.3 H (4.5-6.2) % Calcium (8.5-10.1) mg/dL Iron (50-175) ug/dL TIBC (250-450) ug/dL % Saturation (20-55) % Ferritin (8-252) ng/mL Total Bilirubin (0.2-1.0) mg/dL AST (15-37) IU/L ALT (14-63) IU/L Alkaline Phosphatase (46-116) U/L Troponin I (0.000-0.056) ng/mL B-Natriuretic Peptide (<100) PG/ML Total Protein (6.4-8.2) g/dL Albumin (3.4-5.0) g/dL Globulin (2.0-3.5) g/dL Albumin/Globulin Ratio (1.3-2.8) Lipase (73-393) U/L Vitamin B12 (193-986) pg/mL Folate (8.60-58.90) ng/mL Urine Color DARK YELLOW Urine Appearance CLOUDY Urine pH 5.5 (5.0-8.0) Ur Specific [place] >= 1.030 (1.001-1.035) Urine Protein 30 (NEGATIVE) mg/dL Urine Glucose (UA) NEGATIVE (NEGATIVE) mg/dL Urine Ketones TRACE H (NEGATIVE) mg/dL Urine Occult Blood LARGE H (NEGATIVE) Urine Nitrite NEGATIVE (NEGATIVE) Urine Bilirubin SMALL H (NEGATIVE) Urine Ictotest NEGATIVE Urine Urobilinogen 2.0 H (<2.0) EU/dL Ur Leukocyte Esterase TRACE (NEGATIVE) Urine RBC TOO NUMEROUS TO CT H (0-2/HPF) Urine WBC 0-3 (0-5/HPF) Ur Epithelial Cells OCCASIONAL (NONE-FEW) Urine Bacteria FEW (NEGATIVE) Urine Mucus LIGHT (NONE-MOD) Blood Type A POSITIVE Antibody Screen NEGATIVE Crossmatch See Detail 09/06/17 09/06/17 09/06/17 Range/Units 00:17 02:20 02:20 WBC (4.0-11.0) K/uL RBC (4.30-5.90) M/uL Hgb (12.0-16.0) g/dL Hct (36.0-46.0) % MCV (80.0-98.0) fL MCH (27.0-32.0) pg MCHC (31.0-37.0) g/dL RDW Std Deviation (28.0-62.0) fl RDW Coeff of Demond (11.0-15.0) % Plt Count (150-400) K/uL Neut % (Auto) (48.0-80.0) % Lymph % (Auto) (16.0-40.0) % [place] % (Auto) (0.0-15.0) % Eos % (Auto) (0.0-7.0) % Baso % (Auto) (0.0-1.5) % Neut # (Auto) (1.4-5.7) K/uL Lymph # (Auto) (0.6-2.4) K/uL [place] # (Auto) (0.0-0.8) K/uL Eos # (Auto) (0.0-0.7) K/uL Baso # (Auto) (0.0-0.1) K/uL Nucleated RBC % /100WBC Nucleated RBCs # K/uL Smear Path Review Absolute Retic (20-80) K/uL Percent Retic (0.5-1.5) % Immature Retic Fraction % Sodium 142 (136-145) mmol/L Potassium 3.6 (3.5-5.1) mmol/L Chloride 106 (98-107) mmol/L Carbon Dioxide 27.8 (21.0-32.0) mmol/L BUN 11 (7.0-18.0) mg/dL Creatinine 0.7 (0.6-1.0) mg/dL Est Cr Clr Drug Dosing 93.25 mL/min Estimated GFR (MDRD) > 60.0 ml/min Glucose 136 H (74-106) mg/dL POC Glucose 144 H (60-110) mg/dL Hemoglobin A1c (4.5-6.2) % Calcium 7.8 L (8.5-10.1) mg/dL Iron (50-175) ug/dL TIBC (250-450) ug/dL % Saturation (20-55) % Ferritin (8-252) ng/mL Total Bilirubin (0.2-1.0) mg/dL AST (15-37) IU/L ALT (14-63) IU/L Alkaline Phosphatase (46-116) U/L Troponin I < 0.050 (0.000-0.056) ng/mL B-Natriuretic Peptide (<100) PG/ML Total Protein (6.4-8.2) g/dL Albumin (3.4-5.0) g/dL Globulin (2.0-3.5) g/dL Albumin/Globulin Ratio (1.3-2.8) Lipase (73-393) U/L Vitamin B12 (193-986) pg/mL Folate (8.60-58.90) ng/mL Urine Color Urine Appearance Urine pH (5.0-8.0) Ur Specific [place] (1.001-1.035) Urine Protein (NEGATIVE) mg/dL Urine Glucose (UA) (NEGATIVE) mg/dL Urine Ketones (NEGATIVE) mg/dL Urine Occult Blood (NEGATIVE) Urine Nitrite (NEGATIVE) Urine Bilirubin (NEGATIVE) Urine Ictotest Urine Urobilinogen (<2.0) EU/dL Ur Leukocyte Esterase (NEGATIVE) Urine RBC (0-2/HPF) Urine WBC (0-5/HPF) Ur Epithelial Cells (NONE-FEW) Urine Bacteria (NEGATIVE) Urine Mucus (NONE-MOD) Blood Type Antibody Screen Crossmatch 09/06/17 09/06/17 09/06/17 Range/Units 02:20 06:09 07:00 WBC 8.86 (4.0-11.0) K/uL RBC 4.12 L (4.30-5.90) M/uL Hgb 7.5 L 8.6 L (12.0-16.0) g/dL Hct 26.7 L 30.2 L (36.0-46.0) % MCV 64.8 L (80.0-98.0) fL MCH 18.2 L (27.0-32.0) pg MCHC 28.1 L (31.0-37.0) g/dL RDW Std Deviation 56.6 (28.0-62.0) fl RDW Coeff of Demond 24 H (11.0-15.0) % Plt Count 204 (150-400) K/uL Neut % (Auto) 63.1 (48.0-80.0) % Lymph % (Auto) 29.7 (16.0-40.0) % [place] % (Auto) 6.2 (0.0-15.0) % Eos % (Auto) 0.7 (0.0-7.0) % Baso % (Auto) 0.3 (0.0-1.5) % Neut # (Auto) 5.6 (1.4-5.7) K/uL Lymph # (Auto) 2.6 H (0.6-2.4) K/uL [place] # (Auto) 0.6 (0.0-0.8) K/uL Eos # (Auto) 0.1 (0.0-0.7) K/uL Baso # (Auto) 0.0 (0.0-0.1) K/uL Nucleated RBC % 0.3 /100WBC Nucleated RBCs # 0 K/uL Smear Path Review Absolute Retic (20-80) K/uL Percent Retic (0.5-1.5) % Immature Retic Fraction % Sodium (136-145) mmol/L Potassium (3.5-5.1) mmol/L Chloride (98-107) mmol/L Carbon Dioxide (21.0-32.0) mmol/L BUN (7.0-18.0) mg/dL Creatinine (0.6-1.0) mg/dL Est Cr Clr Drug Dosing mL/min Estimated GFR (MDRD) ml/min Glucose (74-106) mg/dL POC Glucose 145 H (60-110) mg/dL Hemoglobin A1c (4.5-6.2) % Calcium (8.5-10.1) mg/dL Iron (50-175) ug/dL TIBC (250-450) ug/dL % Saturation (20-55) % Ferritin (8-252) ng/mL Total Bilirubin (0.2-1.0) mg/dL AST (15-37) IU/L ALT (14-63) IU/L Alkaline Phosphatase (46-116) U/L Troponin I (0.000-0.056) ng/mL B-Natriuretic Peptide (<100) PG/ML Total Protein (6.4-8.2) g/dL Albumin (3.4-5.0) g/dL Globulin (2.0-3.5) g/dL Albumin/Globulin Ratio (1.3-2.8) Lipase (73-393) U/L Vitamin B12 (193-986) pg/mL Folate (8.60-58.90) ng/mL Urine Color Urine Appearance Urine pH (5.0-8.0) Ur Specific [place] (1.001-1.035) Urine Protein (NEGATIVE) mg/dL Urine Glucose (UA) (NEGATIVE) mg/dL Urine Ketones (NEGATIVE) mg/dL Urine Occult Blood (NEGATIVE) Urine Nitrite (NEGATIVE) Urine Bilirubin (NEGATIVE) Urine Ictotest Urine Urobilinogen (<2.0) EU/dL Ur Leukocyte Esterase (NEGATIVE) Urine RBC (0-2/HPF) Urine WBC (0-5/HPF) Ur Epithelial Cells (NONE-FEW) Urine Bacteria (NEGATIVE) Urine Mucus (NONE-MOD) Blood Type Antibody Screen Crossmatch 09/06/17 09/06/17 09/06/17 Range/Units 08:34 08:34 08:34 WBC 7.03 (4.0-11.0) K/uL RBC 4.70 (4.30-5.90) M/uL Hgb 8.7 L (12.0-16.0) g/dL Hct 30.6 L (36.0-46.0) % MCV 65.1 L (80.0-98.0) fL MCH 18.5 L (27.0-32.0) pg MCHC 28.4 L (31.0-37.0) g/dL RDW Std Deviation 54.6 (28.0-62.0) fl RDW Coeff of Demond 23 H (11.0-15.0) % Plt Count 197 (150-400) K/uL Neut % (Auto) 64.5 (48.0-80.0) % Lymph % (Auto) 27.5 (16.0-40.0) % Sterling % (Auto) 6.7 (0.0-15.0) % Eos % (Auto) 0.7 (0.0-7.0) % Baso % (Auto) 0.6 (0.0-1.5) % Neut # (Auto) 4.5 (1.4-5.7) K/uL Lymph # (Auto) 1.9 (0.6-2.4) K/uL Sterling # (Auto) 0.5 (0.0-0.8) K/uL Eos # (Auto) 0.1 (0.0-0.7) K/uL Baso # (Auto) 0.0 (0.0-0.1) K/uL Nucleated RBC % 0.0 /100WBC Nucleated RBCs # 0 K/uL Smear Path Review Absolute Retic (20-80) K/uL Percent Retic (0.5-1.5) % Immature Retic Fraction % Sodium 139 (136-145) mmol/L Potassium 4.1 (3.5-5.1) mmol/L Chloride 106 (98-107) mmol/L Carbon Dioxide 25.8 (21.0-32.0) mmol/L BUN 11 (7.0-18.0) mg/dL Creatinine 0.7 (0.6-1.0) mg/dL Est Cr Clr Drug Dosing 93.25 mL/min Estimated GFR (MDRD) > 60.0 ml/min Glucose 183 H (74-106) mg/dL POC Glucose (60-110) mg/dL Hemoglobin A1c (4.5-6.2) % Calcium 8.1 L (8.5-10.1) mg/dL Iron (50-175) ug/dL TIBC (250-450) ug/dL % Saturation (20-55) % Ferritin (8-252) ng/mL Total Bilirubin (0.2-1.0) mg/dL AST (15-37) IU/L ALT (14-63) IU/L Alkaline Phosphatase (46-116) U/L Troponin I < 0.050 (0.000-0.056) ng/mL B-Natriuretic Peptide (<100) PG/ML Total Protein (6.4-8.2) g/dL Albumin (3.4-5.0) g/dL Globulin (2.0-3.5) g/dL Albumin/Globulin Ratio (1.3-2.8) Lipase (73-393) U/L Vitamin B12 (193-986) pg/mL Folate (8.60-58.90) ng/mL Urine Color Urine Appearance Urine pH (5.0-8.0) Ur Specific [place] (1.001-1.035) Urine Protein (NEGATIVE) mg/dL Urine Glucose (UA) (NEGATIVE) mg/dL Urine Ketones (NEGATIVE) mg/dL Urine Occult Blood (NEGATIVE) Urine Nitrite (NEGATIVE) Urine Bilirubin (NEGATIVE) Urine Ictotest Urine Urobilinogen (<2.0) EU/dL Ur Leukocyte Esterase (NEGATIVE) Urine RBC (0-2/HPF) Urine WBC (0-5/HPF) Ur Epithelial Cells (NONE-FEW) Urine Bacteria (NEGATIVE) Urine Mucus (NONE-MOD) Blood Type Antibody Screen Crossmatch 06/27/18 Range/Units 08:34 WBC (4.0-11.0) K/uL RBC (4.30-5.90) M/uL Hgb (12.0-16.0) g/dL Hct (36.0-46.0) % MCV (80.0-98.0) fL MCH (27.0-32.0) pg MCHC (31.0-37.0) g/dL RDW Std Deviation (28.0-62.0) fl RDW Coeff of Demond (11.0-15.0) % Plt Count (150-400) K/uL Neut % (Auto) (48.0-80.0) % Lymph % (Auto) (16.0-40.0) % Sterling % (Auto) (0.0-15.0) % Eos % (Auto) (0.0-7.0) % Baso % (Auto) (0.0-1.5) % Neut # (Auto) (1.4-5.7) K/uL Lymph # (Auto) (0.6-2.4) K/uL Sterling # (Auto) (0.0-0.8) K/uL Eos # (Auto) (0.0-0.7) K/uL Baso # (Auto) (0.0-0.1) K/uL Nucleated RBC % /100WBC Nucleated RBCs # K/uL Smear Path Review SENT TO PATHOLOGY Absolute Retic (20-80) K/uL Percent Retic (0.5-1.5) % Immature Retic Fraction % Sodium (136-145) mmol/L Potassium (3.5-5.1) mmol/L Chloride (98-107) mmol/L Carbon Dioxide (21.0-32.0) mmol/L BUN (7.0-18.0) mg/dL Creatinine (0.6-1.0) mg/dL Est Cr Clr Drug Dosing mL/min Estimated GFR (MDRD) ml/min Glucose (74-106) mg/dL POC Glucose (60-110) mg/dL Hemoglobin A1c (4.5-6.2) % Calcium (8.5-10.1) mg/dL Iron (50-175) ug/dL TIBC (250-450) ug/dL % Saturation (20-55) % Ferritin (8-252) ng/mL Total Bilirubin (0.2-1.0) mg/dL AST (15-37) IU/L ALT (14-63) IU/L Alkaline Phosphatase (46-116) U/L Troponin I (0.000-0.056) ng/mL B-Natriuretic Peptide (<100) PG/ML Total Protein (6.4-8.2) g/dL Albumin (3.4-5.0) g/dL Globulin (2.0-3.5) g/dL Albumin/Globulin Ratio (1.3-2.8) Lipase (73-393) U/L Vitamin B12 (193-986) pg/mL Folate (8.60-58.90) ng/mL Urine Color Urine Appearance Urine pH (5.0-8.0) Ur Specific [place] (1.001-1.035) Urine Protein (NEGATIVE) mg/dL Urine Glucose (UA) (NEGATIVE) mg/dL Urine Ketones (NEGATIVE) mg/dL Urine Occult Blood (NEGATIVE) Urine Nitrite (NEGATIVE) Urine Bilirubin (NEGATIVE) Urine Ictotest Urine Urobilinogen (<2.0) EU/dL Ur Leukocyte Esterase (NEGATIVE) Urine RBC (0-2/HPF) Urine WBC (0-5/HPF) Ur Epithelial Cells (NONE-FEW) Urine Bacteria (NEGATIVE) Urine Mucus (NONE-MOD) Blood Type Antibody Screen Crossmatch Result Diagrams: 09/06/17 08:34 09/06/17 08:34 Problem List Initiated/Reviewed/Updated: Yes Orders Last 24hrs: Active Orders 24 hr Category Date Time Status Patient Status [ADT] Stat ADT 09/05/17 21:44 Active Blood Glucose Check, Bedside [RC] Q6H Care 09/06/17 00:00 Active Telemetry Monitoring [Cardiac Monitoring] [RC] Q8H Care 09/05/17 22:23 Active NPO Now [Nothing per Oral Now Diet] [DIET] Diet 09/06/17 Breakfast Active Chest 1V Frontal [CR] Stat Exams 09/05/17 20:49 Taken BASIC METABOLIC PANEL,BMP [CHEM] AM Lab 09/07/17 05:11 Ordered BASIC METABOLIC PANEL,BMP [CHEM] AM Lab 09/08/17 05:11 Ordered CBC WITH AUTO DIFF [HEME] AM Lab 09/07/17 05:11 Ordered CBC WITH AUTO DIFF [HEME] AM Lab 09/08/17 05:11 Ordered UA W/MICROSCOPIC [URIN] Stat Lab 09/05/17 21:49 Ordered Insulin Aspart [NovoLOG] Med 09/06/17 00:00 Active See Protocol SUBCUT Q6H Morphine Med 09/05/17 23:43 Active 2 mg IVPUSH Q2H PRN Sodium Chloride 0.9% [Saline Flush] Med 09/05/17 20:49 Active 10 ml FLUSH ASDIRECTED PRN Sodium Chloride 0.9% [Saline Flush] Med 09/05/17 20:49 Active 2.5 ml FLUSH ASDIRECTED PRN diphenhydrAMINE [Benadryl] Med 09/06/17 00:37 Active 50 mg IVPUSH Q6H PRN Saline Lock Insert [OM.PC] Stat Oth 09/05/17 20:49 Ordered Transfuse PRBC [Transfuse Red Blood Cells] [COMM] Stat Oth 09/05/17 21:41 Ordered Transfuse PRBC [Transfuse Red Blood Cells] [COMM] Oth 09/06/17 03:41 Ordered Urgent Medication Orders Diphenhydramine HCl (Benadryl) 50 mg IVPUSH Q6H PRN PRN Reason: Itching Last Admin: 09/06/17 00:46 Dose: 50 mg Insulin Aspart (Novolog) 0 unit SUBCUT Q6H [facility]; Protocol Last Admin: 09/06/17 06:00 Dose: Not Given Admin: 09/06/17 00:00 Dose: Not Given Morphine Sulfate (Morphine) 2 mg IVPUSH Q2H PRN PRN Reason: Pain Last Admin: 09/06/17 00:23 Dose: 2 mg Sodium Chloride (Saline Flush) 10 ml FLUSH ASDIRECTED PRN PRN Reason: Keep Vein Open Sodium Chloride (Saline Flush) 2.5 ml FLUSH ASDIRECTED PRN PRN Reason: Keep Vein Open Assessment/Plan Comment:: Assessment: #1. Chest pain - ACS rule out #2. Microcytic anemia #3. Dizziness #4. History of T2DM, HLD, BKA, HTN #5. Dysmennorhea Plan: #1. admit to the floor for observation. full code. vital signs per floor routine. SCD for dvt prophylaxis. clear liquid diet #2. Troponin q6h x3 #3. Recheck hemoglobin is 8.7, given that shes mildly symptomatic we will transfuse 1 more unit and recheck H/H after #4. She will need EGD/colonoscopy as an outpatient, along with a transvaginal ultrasound for ongoing dysmennorhea #5. anticipate discharge later this evening <[place] - Last Filed: 09/06/17 18:11> H&P History of Present Illness - General Admit Problem/Dx: Admission Diagnosis/Problem Admission Diagnosis/Problem Anemia Exam - Vital Signs Vital Signs: Last Vital Signs Temp 96.6 F 09/06/17 16:25 Pulse 82 09/06/17 16:25 Resp 16 09/06/17 16:25 BP 117/72 09/06/17 16:25 Pulse Ox 96 09/06/17 16:25 Orthostatic Blood Pressure [ 121/68 Standing] Orthostatic Blood Pressure [ 129/68 Sitting] Orthostatic Blood Pressure [ 118/58 Supine] - Patient Data Lab Results Last 24 hrs: Laboratory Results - last 24 hr 09/05/17 09/05/17 09/05/17 Range/Units 20:58 20:58 20:58 WBC 8.39 (4.0-11.0) K/uL RBC 4.20 L (4.30-5.90) M/uL Hgb 6.9 L (12.0-16.0) g/dL Hct 26.0 L (36.0-46.0) % MCV 61.9 L (80.0-98.0) fL MCH 16.4 L (27.0-32.0) pg MCHC 26.5 L (31.0-37.0) g/dL RDW Std Deviation 46.4 (28.0-62.0) fl RDW Coeff of Demond 21 H (11.0-15.0) % Plt Count 201 (150-400) K/uL Neut % (Auto) 54.7 (48.0-80.0) % Lymph % (Auto) 34.7 (16.0-40.0) % Sterling % (Auto) 9.3 (0.0-15.0) % Eos % (Auto) 0.8 (0.0-7.0) % Baso % (Auto) 0.5 (0.0-1.5) % Neut # (Auto) 4.6 (1.4-5.7) K/uL Lymph # (Auto) 2.9 H (0.6-2.4) K/uL Sterling # (Auto) 0.8 (0.0-0.8) K/uL Eos # (Auto) 0.1 (0.0-0.7) K/uL Baso # (Auto) 0.0 (0.0-0.1) K/uL Nucleated RBC % 0.6 /100WBC Nucleated RBCs # 0 K/uL Smear Path Review Absolute Retic (20-80) K/uL Percent Retic (0.5-1.5) % Immature Retic Fraction % Sodium 140 (136-145) mmol/L Potassium 3.2 L (3.5-5.1) mmol/L Chloride 104 (98-107) mmol/L Carbon Dioxide 25.2 (21.0-32.0) mmol/L BUN 11 (7.0-18.0) mg/dL Creatinine 0.8 (0.6-1.0) mg/dL Est Cr Clr Drug Dosing 81.59 mL/min Estimated GFR (MDRD) > 60.0 ml/min Glucose 125 H (74-106) mg/dL POC Glucose (60-110) mg/dL Hemoglobin A1c (4.5-6.2) % Calcium 8.3 L (8.5-10.1) mg/dL Iron (50-175) ug/dL TIBC (250-450) ug/dL % Saturation (20-55) % Ferritin (8-252) ng/mL Total Bilirubin 0.4 (0.2-1.0) mg/dL AST 17 (15-37) IU/L ALT 17 (14-63) IU/L Alkaline Phosphatase 81 (46-116) U/L Troponin I < 0.050 (0.000-0.056) ng/mL B-Natriuretic Peptide 54 (<100) PG/ML Total Protein 6.8 (6.4-8.2) g/dL Albumin 3.1 L (3.4-5.0) g/dL Globulin 3.7 H (2.0-3.5) g/dL Albumin/Globulin Ratio 0.8 L (1.3-2.8) Lipase (73-393) U/L Vitamin B12 (193-986) pg/mL Folate (8.60-58.90) ng/mL Urine Color Urine Appearance Urine pH (5.0-8.0) Ur Specific Carmichaels (1.001-1.035) Urine Protein (NEGATIVE) mg/dL Urine Glucose (UA) (NEGATIVE) mg/dL Urine Ketones (NEGATIVE) mg/dL Urine Occult Blood (NEGATIVE) Urine Nitrite (NEGATIVE) Urine Bilirubin (NEGATIVE) Urine Ictotest Urine Urobilinogen (<2.0) EU/dL Ur Leukocyte Esterase (NEGATIVE) Urine RBC (0-2/HPF) Urine WBC (0-5/HPF) Ur Epithelial Cells (NONE-FEW) Urine Bacteria (NEGATIVE) Urine Mucus (NONE-MOD) Blood Type Antibody Screen Crossmatch 09/05/17 09/05/17 09/05/17 Range/Units 20:58 20:58 20:58 WBC (4.0-11.0) K/uL RBC 4.08 L (4.30-5.90) M/uL Hgb (12.0-16.0) g/dL Hct (36.0-46.0) % MCV (80.0-98.0) fL MCH (27.0-32.0) pg MCHC (31.0-37.0) g/dL RDW Std Deviation (28.0-62.0) fl RDW Coeff of Demond (11.0-15.0) % Plt Count (150-400) K/uL Neut % (Auto) (48.0-80.0) % Lymph % (Auto) (16.0-40.0) % Sterling % (Auto) (0.0-15.0) % Eos % (Auto) (0.0-7.0) % Baso % (Auto) (0.0-1.5) % Neut # (Auto) (1.4-5.7) K/uL Lymph # (Auto) (0.6-2.4) K/uL Sterling # (Auto) (0.0-0.8) K/uL Eos # (Auto) (0.0-0.7) K/uL Baso # (Auto) (0.0-0.1) K/uL Nucleated RBC % /100WBC Nucleated RBCs # K/uL Smear Path Review Absolute Retic 122.40 H (20-80) K/uL Percent Retic 3.0 H (0.5-1.5) % Immature Retic Fraction 31 % Sodium (136-145) mmol/L Potassium (3.5-5.1) mmol/L Chloride (98-107) mmol/L Carbon Dioxide (21.0-32.0) mmol/L BUN (7.0-18.0) mg/dL Creatinine (0.6-1.0) mg/dL Est Cr Clr Drug Dosing mL/min Estimated GFR (MDRD) ml/min Glucose (74-106) mg/dL POC Glucose (60-110) mg/dL Hemoglobin A1c (4.5-6.2) % Calcium (8.5-10.1) mg/dL Iron 12 L (50-175) ug/dL TIBC 402 (250-450) ug/dL % Saturation 2.99 L (20-55) % Ferritin 4 L (8-252) ng/mL Total Bilirubin (0.2-1.0) mg/dL AST (15-37) IU/L ALT (14-63) IU/L Alkaline Phosphatase (46-116) U/L Troponin I (0.000-0.056) ng/mL B-Natriuretic Peptide (<100) PG/ML Total Protein (6.4-8.2) g/dL Albumin (3.4-5.0) g/dL Globulin (2.0-3.5) g/dL Albumin/Globulin Ratio (1.3-2.8) Lipase 228 (73-393) U/L Vitamin B12 276 (193-986) pg/mL Folate 20.90 (8.60-58.90) ng/mL Urine Color Urine Appearance Urine pH (5.0-8.0) Ur Specific Carmichaels (1.001-1.035) Urine Protein (NEGATIVE) mg/dL Urine Glucose (UA) (NEGATIVE) mg/dL Urine Ketones (NEGATIVE) mg/dL Urine Occult Blood (NEGATIVE) Urine Nitrite (NEGATIVE) Urine Bilirubin (NEGATIVE) Urine Ictotest Urine Urobilinogen (<2.0) EU/dL Ur Leukocyte Esterase (NEGATIVE) Urine RBC (0-2/HPF) Urine WBC (0-5/HPF) Ur Epithelial Cells (NONE-FEW) Urine Bacteria (NEGATIVE) Urine Mucus (NONE-MOD) Blood Type Antibody Screen Crossmatch 09/05/17 09/05/17 09/05/17 Range/Units 20:58 21:49 21:53 WBC (4.0-11.0) K/uL RBC (4.30-5.90) M/uL Hgb (12.0-16.0) g/dL Hct (36.0-46.0) % MCV (80.0-98.0) fL MCH (27.0-32.0) pg MCHC (31.0-37.0) g/dL RDW Std Deviation (28.0-62.0) fl RDW Coeff of Demond (11.0-15.0) % Plt Count (150-400) K/uL Neut % (Auto) (48.0-80.0) % Lymph % (Auto) (16.0-40.0) % Sterling % (Auto) (0.0-15.0) % Eos % (Auto) (0.0-7.0) % Baso % (Auto) (0.0-1.5) % Neut # (Auto) (1.4-5.7) K/uL Lymph # (Auto) (0.6-2.4) K/uL Sterling # (Auto) (0.0-0.8) K/uL Eos # (Auto) (0.0-0.7) K/uL Baso # (Auto) (0.0-0.1) K/uL Nucleated RBC % /100WBC Nucleated RBCs # K/uL Smear Path Review Absolute Retic (20-80) K/uL Percent Retic (0.5-1.5) % Immature Retic Fraction % Sodium (136-145) mmol/L Potassium (3.5-5.1) mmol/L Chloride (98-107) mmol/L Carbon Dioxide (21.0-32.0) mmol/L BUN (7.0-18.0) mg/dL Creatinine (0.6-1.0) mg/dL Est Cr Clr Drug Dosing mL/min Estimated GFR (MDRD) ml/min Glucose (74-106) mg/dL POC Glucose (60-110) mg/dL Hemoglobin A1c 10.3 H (4.5-6.2) % Calcium (8.5-10.1) mg/dL Iron (50-175) ug/dL TIBC (250-450) ug/dL % Saturation (20-55) % Ferritin (8-252) ng/mL Total Bilirubin (0.2-1.0) mg/dL AST (15-37) IU/L ALT (14-63) IU/L Alkaline Phosphatase (46-116) U/L Troponin I (0.000-0.056) ng/mL B-Natriuretic Peptide (<100) PG/ML Total Protein (6.4-8.2) g/dL Albumin (3.4-5.0) g/dL Globulin (2.0-3.5) g/dL Albumin/Globulin Ratio (1.3-2.8) Lipase (73-393) U/L Vitamin B12 (193-986) pg/mL Folate (8.60-58.90) ng/mL Urine Color DARK YELLOW Urine Appearance CLOUDY Urine pH 5.5 (5.0-8.0) Ur Specific Carmichaels >= 1.030 (1.001-1.035) Urine Protein 30 (NEGATIVE) mg/dL Urine Glucose (UA) NEGATIVE (NEGATIVE) mg/dL Urine Ketones TRACE H (NEGATIVE) mg/dL Urine Occult Blood LARGE H (NEGATIVE) Urine Nitrite NEGATIVE (NEGATIVE) Urine Bilirubin SMALL H (NEGATIVE) Urine Ictotest NEGATIVE Urine Urobilinogen 2.0 H (<2.0) EU/dL Ur Leukocyte Esterase TRACE (NEGATIVE) Urine RBC TOO NUMEROUS TO CT H (0-2/HPF) Urine WBC 0-3 (0-5/HPF) Ur Epithelial Cells OCCASIONAL (NONE-FEW) Urine Bacteria FEW (NEGATIVE) Urine Mucus LIGHT (NONE-MOD) Blood Type A POSITIVE Antibody Screen NEGATIVE Crossmatch See Detail 09/06/17 09/06/17 09/06/17 Range/Units 00:17 02:20 02:20 WBC (4.0-11.0) K/uL RBC (4.30-5.90) M/uL Hgb (12.0-16.0) g/dL Hct (36.0-46.0) % MCV (80.0-98.0) fL MCH (27.0-32.0) pg MCHC (31.0-37.0) g/dL RDW Std Deviation (28.0-62.0) fl RDW Coeff of Demond (11.0-15.0) % Plt Count (150-400) K/uL Neut % (Auto) (48.0-80.0) % Lymph % (Auto) (16.0-40.0) % Sterling % (Auto) (0.0-15.0) % Eos % (Auto) (0.0-7.0) % Baso % (Auto) (0.0-1.5) % Neut # (Auto) (1.4-5.7) K/uL Lymph # (Auto) (0.6-2.4) K/uL Sterling # (Auto) (0.0-0.8) K/uL Eos # (Auto) (0.0-0.7) K/uL Baso # (Auto) (0.0-0.1) K/uL Nucleated RBC % /100WBC Nucleated RBCs # K/uL Smear Path Review Absolute Retic (20-80) K/uL Percent Retic (0.5-1.5) % Immature Retic Fraction % Sodium 142 (136-145) mmol/L Potassium 3.6 (3.5-5.1) mmol/L Chloride 106 (98-107) mmol/L Carbon Dioxide 27.8 (21.0-32.0) mmol/L BUN 11 (7.0-18.0) mg/dL Creatinine 0.7 (0.6-1.0) mg/dL Est Cr Clr Drug Dosing 93.25 mL/min Estimated GFR (MDRD) > 60.0 ml/min Glucose 136 H (74-106) mg/dL POC Glucose 144 H (60-110) mg/dL Hemoglobin A1c (4.5-6.2) % Calcium 7.8 L (8.5-10.1) mg/dL Iron (50-175) ug/dL TIBC (250-450) ug/dL % Saturation (20-55) % Ferritin (8-252) ng/mL Total Bilirubin (0.2-1.0) mg/dL AST (15-37) IU/L ALT (14-63) IU/L Alkaline Phosphatase (46-116) U/L Troponin I < 0.050 (0.000-0.056) ng/mL B-Natriuretic Peptide (<100) PG/ML Total Protein (6.4-8.2) g/dL Albumin (3.4-5.0) g/dL Globulin (2.0-3.5) g/dL Albumin/Globulin Ratio (1.3-2.8) Lipase (73-393) U/L Vitamin B12 (193-986) pg/mL Folate (8.60-58.90) ng/mL Urine Color Urine Appearance Urine pH (5.0-8.0) Ur Specific Carmichaels (1.001-1.035) Urine Protein (NEGATIVE) mg/dL Urine Glucose (UA) (NEGATIVE) mg/dL Urine Ketones (NEGATIVE) mg/dL Urine Occult Blood (NEGATIVE) Urine Nitrite (NEGATIVE) Urine Bilirubin (NEGATIVE) Urine Ictotest Urine Urobilinogen (<2.0) EU/dL Ur Leukocyte Esterase (NEGATIVE) Urine RBC (0-2/HPF) Urine WBC (0-5/HPF) Ur Epithelial Cells (NONE-FEW) Urine Bacteria (NEGATIVE) Urine Mucus (NONE-MOD) Blood Type Antibody Screen Crossmatch 09/06/17 09/06/17 09/06/17 Range/Units 02:20 06:09 07:00 WBC 8.86 (4.0-11.0) K/uL RBC 4.12 L (4.30-5.90) M/uL Hgb 7.5 L 8.6 L (12.0-16.0) g/dL Hct 26.7 L 30.2 L (36.0-46.0) % MCV 64.8 L (80.0-98.0) fL MCH 18.2 L (27.0-32.0) pg MCHC 28.1 L (31.0-37.0) g/dL RDW Std Deviation 56.6 (28.0-62.0) fl RDW Coeff of Demond 24 H (11.0-15.0) % Plt Count 204 (150-400) K/uL Neut % (Auto) 63.1 (48.0-80.0) % Lymph % (Auto) 29.7 (16.0-40.0) % Sterling % (Auto) 6.2 (0.0-15.0) % Eos % (Auto) 0.7 (0.0-7.0) % Baso % (Auto) 0.3 (0.0-1.5) % Neut # (Auto) 5.6 (1.4-5.7) K/uL Lymph # (Auto) 2.6 H (0.6-2.4) K/uL Sterling # (Auto) 0.6 (0.0-0.8) K/uL Eos # (Auto) 0.1 (0.0-0.7) K/uL Baso # (Auto) 0.0 (0.0-0.1) K/uL Nucleated RBC % 0.3 /100WBC Nucleated RBCs # 0 K/uL Smear Path Review Absolute Retic (20-80) K/uL Percent Retic (0.5-1.5) % Immature Retic Fraction % Sodium (136-145) mmol/L Potassium (3.5-5.1) mmol/L Chloride (98-107) mmol/L Carbon Dioxide (21.0-32.0) mmol/L BUN (7.0-18.0) mg/dL Creatinine (0.6-1.0) mg/dL Est Cr Clr Drug Dosing mL/min Estimated GFR (MDRD) ml/min Glucose (74-106) mg/dL POC Glucose 145 H (60-110) mg/dL Hemoglobin A1c (4.5-6.2) % Calcium (8.5-10.1) mg/dL Iron (50-175) ug/dL TIBC (250-450) ug/dL % Saturation (20-55) % Ferritin (8-252) ng/mL Total Bilirubin (0.2-1.0) mg/dL AST (15-37) IU/L ALT (14-63) IU/L Alkaline Phosphatase (46-116) U/L Troponin I (0.000-0.056) ng/mL B-Natriuretic Peptide (<100) PG/ML Total Protein (6.4-8.2) g/dL Albumin (3.4-5.0) g/dL Globulin (2.0-3.5) g/dL Albumin/Globulin Ratio (1.3-2.8) Lipase (73-393) U/L Vitamin B12 (193-986) pg/mL Folate (8.60-58.90) ng/mL Urine Color Urine Appearance Urine pH (5.0-8.0) Ur Specific Carmichaels (1.001-1.035) Urine Protein (NEGATIVE) mg/dL Urine Glucose (UA) (NEGATIVE) mg/dL Urine Ketones (NEGATIVE) mg/dL Urine Occult Blood (NEGATIVE) Urine Nitrite (NEGATIVE) Urine Bilirubin (NEGATIVE) Urine Ictotest Urine Urobilinogen (<2.0) EU/dL Ur Leukocyte Esterase (NEGATIVE) Urine RBC (0-2/HPF) Urine WBC (0-5/HPF) Ur Epithelial Cells (NONE-FEW) Urine Bacteria (NEGATIVE) Urine Mucus (NONE-MOD) Blood Type Antibody Screen Crossmatch 09/06/17 09/06/17 09/06/17 Range/Units 07:00 08:34 08:34 WBC 7.03 (4.0-11.0) K/uL RBC 4.70 (4.30-5.90) M/uL Hgb 8.7 L (12.0-16.0) g/dL Hct 30.6 L (36.0-46.0) % MCV 65.1 L (80.0-98.0) fL MCH 18.5 L (27.0-32.0) pg MCHC 28.4 L (31.0-37.0) g/dL RDW Std Deviation 54.6 (28.0-62.0) fl RDW Coeff of Demond 23 H (11.0-15.0) % Plt Count 197 (150-400) K/uL Neut % (Auto) 64.5 (48.0-80.0) % Lymph % (Auto) 27.5 (16.0-40.0) % Sterling % (Auto) 6.7 (0.0-15.0) % Eos % (Auto) 0.7 (0.0-7.0) % Baso % (Auto) 0.6 (0.0-1.5) % Neut # (Auto) 4.5 (1.4-5.7) K/uL Lymph # (Auto) 1.9 (0.6-2.4) K/uL Sterling # (Auto) 0.5 (0.0-0.8) K/uL Eos # (Auto) 0.1 (0.0-0.7) K/uL Baso # (Auto) 0.0 (0.0-0.1) K/uL Nucleated RBC % 0.0 /100WBC Nucleated RBCs # 0 K/uL Smear Path Review Absolute Retic (20-80) K/uL Percent Retic (0.5-1.5) % Immature Retic Fraction % Sodium (136-145) mmol/L Potassium (3.5-5.1) mmol/L Chloride (98-107) mmol/L Carbon Dioxide (21.0-32.0) mmol/L BUN (7.0-18.0) mg/dL Creatinine (0.6-1.0) mg/dL Est Cr Clr Drug Dosing mL/min Estimated GFR (MDRD) ml/min Glucose (74-106) mg/dL POC Glucose (60-110) mg/dL Hemoglobin A1c (4.5-6.2) % Calcium (8.5-10.1) mg/dL Iron (50-175) ug/dL TIBC (250-450) ug/dL % Saturation (20-55) % Ferritin (8-252) ng/mL Total Bilirubin (0.2-1.0) mg/dL AST (15-37) IU/L ALT (14-63) IU/L Alkaline Phosphatase (46-116) U/L Troponin I < 0.050 (0.000-0.056) ng/mL B-Natriuretic Peptide (<100) PG/ML Total Protein (6.4-8.2) g/dL Albumin (3.4-5.0) g/dL Globulin (2.0-3.5) g/dL Albumin/Globulin Ratio (1.3-2.8) Lipase (73-393) U/L Vitamin B12 (193-986) pg/mL Folate 18.90 (8.60-58.90) ng/mL Urine Color Urine Appearance Urine pH (5.0-8.0) Ur Specific Carmichaels (1.001-1.035) Urine Protein (NEGATIVE) mg/dL Urine Glucose (UA) (NEGATIVE) mg/dL Urine Ketones (NEGATIVE) mg/dL Urine Occult Blood (NEGATIVE) Urine Nitrite (NEGATIVE) Urine Bilirubin (NEGATIVE) Urine Ictotest Urine Urobilinogen (<2.0) EU/dL Ur Leukocyte Esterase (NEGATIVE) Urine RBC (0-2/HPF) Urine WBC (0-5/HPF) Ur Epithelial Cells (NONE-FEW) Urine Bacteria (NEGATIVE) Urine Mucus (NONE-MOD) Blood Type Antibody Screen Crossmatch 09/06/17 09/06/17 09/06/17 Range/Units 08:34 08:34 11:30 WBC (4.0-11.0) K/uL RBC (4.30-5.90) M/uL Hgb (12.0-16.0) g/dL Hct (36.0-46.0) % MCV (80.0-98.0) fL MCH (27.0-32.0) pg MCHC (31.0-37.0) g/dL RDW Std Deviation (28.0-62.0) fl RDW Coeff of Demond (11.0-15.0) % Plt Count (150-400) K/uL Neut % (Auto) (48.0-80.0) % Lymph % (Auto) (16.0-40.0) % Sterling % (Auto) (0.0-15.0) % Eos % (Auto) (0.0-7.0) % Baso % (Auto) (0.0-1.5) % Neut # (Auto) (1.4-5.7) K/uL Lymph # (Auto) (0.6-2.4) K/uL Sterling # (Auto) (0.0-0.8) K/uL Eos # (Auto) (0.0-0.7) K/uL Baso # (Auto) (0.0-0.1) K/uL Nucleated RBC % /100WBC Nucleated RBCs # K/uL Smear Path Review SENT TO PATHOLOGY Absolute Retic (20-80) K/uL Percent Retic (0.5-1.5) % Immature Retic Fraction % Sodium 139 (136-145) mmol/L Potassium 4.1 (3.5-5.1) mmol/L Chloride 106 (98-107) mmol/L Carbon Dioxide 25.8 (21.0-32.0) mmol/L BUN 11 (7.0-18.0) mg/dL Creatinine 0.7 (0.6-1.0) mg/dL Est Cr Clr Drug Dosing 93.25 mL/min Estimated GFR (MDRD) > 60.0 ml/min Glucose 183 H (74-106) mg/dL POC Glucose 188 H (60-110) mg/dL Hemoglobin A1c (4.5-6.2) % Calcium 8.1 L (8.5-10.1) mg/dL Iron (50-175) ug/dL TIBC (250-450) ug/dL % Saturation (20-55) % Ferritin (8-252) ng/mL Total Bilirubin (0.2-1.0) mg/dL AST (15-37) IU/L ALT (14-63) IU/L Alkaline Phosphatase (46-116) U/L Troponin I (0.000-0.056) ng/mL B-Natriuretic Peptide (<100) PG/ML Total Protein (6.4-8.2) g/dL Albumin (3.4-5.0) g/dL Globulin (2.0-3.5) g/dL Albumin/Globulin Ratio (1.3-2.8) Lipase (73-393) U/L Vitamin B12 (193-986) pg/mL Folate (8.60-58.90) ng/mL Urine Color Urine Appearance Urine pH (5.0-8.0) Ur Specific Carmichaels (1.001-1.035) Urine Protein (NEGATIVE) mg/dL Urine Glucose (UA) (NEGATIVE) mg/dL Urine Ketones (NEGATIVE) mg/dL Urine Occult Blood (NEGATIVE) Urine Nitrite (NEGATIVE) Urine Bilirubin (NEGATIVE) Urine Ictotest Urine Urobilinogen (<2.0) EU/dL Ur Leukocyte Esterase (NEGATIVE) Urine RBC (0-2/HPF) Urine WBC (0-5/HPF) Ur Epithelial Cells (NONE-FEW) Urine Bacteria (NEGATIVE) Urine Mucus (NONE-MOD) Blood Type Antibody Screen Crossmatch 09/06/17 09/06/17 Range/Units 16:23 17:30 WBC (4.0-11.0) K/uL RBC (4.30-5.90) M/uL Hgb 10.8 L (12.0-16.0) g/dL Hct 35.7 L (36.0-46.0) % MCV (80.0-98.0) fL MCH (27.0-32.0) pg MCHC (31.0-37.0) g/dL RDW Std Deviation (28.0-62.0) fl RDW Coeff of Demond (11.0-15.0) % Plt Count (150-400) K/uL Neut % (Auto) (48.0-80.0) % Lymph % (Auto) (16.0-40.0) % Sterling % (Auto) (0.0-15.0) % Eos % (Auto) (0.0-7.0) % Baso % (Auto) (0.0-1.5) % Neut # (Auto) (1.4-5.7) K/uL Lymph # (Auto) (0.6-2.4) K/uL Sterling # (Auto) (0.0-0.8) K/uL Eos # (Auto) (0.0-0.7) K/uL Baso # (Auto) (0.0-0.1) K/uL Nucleated RBC % /100WBC Nucleated RBCs # K/uL Smear Path Review Absolute Retic (20-80) K/uL Percent Retic (0.5-1.5) % Immature Retic Fraction % Sodium (136-145) mmol/L Potassium (3.5-5.1) mmol/L Chloride (98-107) mmol/L Carbon Dioxide (21.0-32.0) mmol/L BUN (7.0-18.0) mg/dL Creatinine (0.6-1.0) mg/dL Est Cr Clr Drug Dosing mL/min Estimated GFR (MDRD) ml/min Glucose (74-106) mg/dL POC Glucose 136 H (60-110) mg/dL Hemoglobin A1c (4.5-6.2) % Calcium (8.5-10.1) mg/dL Iron (50-175) ug/dL TIBC (250-450) ug/dL % Saturation (20-55) % Ferritin (8-252) ng/mL Total Bilirubin (0.2-1.0) mg/dL AST (15-37) IU/L ALT (14-63) IU/L Alkaline Phosphatase (46-116) U/L Troponin I (0.000-0.056) ng/mL B-Natriuretic Peptide (<100) PG/ML Total Protein (6.4-8.2) g/dL Albumin (3.4-5.0) g/dL Globulin (2.0-3.5) g/dL Albumin/Globulin Ratio (1.3-2.8) Lipase (73-393) U/L Vitamin B12 (193-986) pg/mL Folate (8.60-58.90) ng/mL Urine Color Urine Appearance Urine pH (5.0-8.0) Ur Specific [place] (1.001-1.035) Urine Protein (NEGATIVE) mg/dL Urine Glucose (UA) (NEGATIVE) mg/dL Urine Ketones (NEGATIVE) mg/dL Urine Occult Blood (NEGATIVE) Urine Nitrite (NEGATIVE) Urine Bilirubin (NEGATIVE) Urine Ictotest Urine Urobilinogen (<2.0) EU/dL Ur Leukocyte Esterase (NEGATIVE) Urine RBC (0-2/HPF) Urine WBC (0-5/HPF) Ur Epithelial Cells (NONE-FEW) Urine Bacteria (NEGATIVE) Urine Mucus (NONE-MOD) Blood Type Antibody Screen Crossmatch Result Diagrams: 09/06/17 17:30 09/06/17 08:34 Problem List Initiated/Reviewed/Updated: Yes Orders Last 24hrs: Active Orders 24 hr Category Date Time Status Patient Status [ADT] Stat ADT 09/05/17 21:44 Active Blood Glucose Check, Bedside [RC] Q6H Care 09/06/17 00:00 Active Communication Order [RC] ROUTINE Care 09/06/17 10:32 Active Communication Order [RC] ROUTINE Care 09/06/17 10:52 Active Telemetry Monitoring [Cardiac Monitoring] [RC] Q8H Care 09/05/17 22:23 Active [employer] Diet [DIET] Diet 09/06/17 Dinner Active Clear Liquid Diet [DIET] Diet 09/06/17 Lunch Active BASIC METABOLIC PANEL,BMP [CHEM] AM Lab 09/07/17 05:11 Ordered BASIC METABOLIC PANEL,BMP [CHEM] AM Lab 09/08/17 05:11 Ordered CBC WITH AUTO DIFF [HEME] AM Lab 09/07/17 05:11 Ordered CBC WITH AUTO DIFF [HEME] AM Lab 09/08/17 05:11 Ordered UA W/MICROSCOPIC [URIN] Stat Lab 09/05/17 21:49 Ordered Albuterol [Proventil Neb Soln] Med 09/06/17 10:51 Active 2.5 mg NEB Q4H PRN Albuterol [Ventolin HFA] Med 09/06/17 10:51 Active 0 gm INH Q6H PRN Cyanocobalamin (Vitamin B12) [Vitamin B12] Med 09/06/17 10:45 Active 1,000 mcg SUBCUT DAILY Diltiazem [Cardizem CD] Med 09/07/17 09:00 Active 180 mg PO DAILY Gabapentin [Neurontin] Med 09/06/17 14:00 Active 600 mg PO TID Insulin Aspart [NovoLOG] Med 09/06/17 00:00 Active See Protocol SUBCUT Q6H Lisinopril [Prinivil] Med 09/06/17 11:00 Active 5 mg PO DAILY Magnesium Oxide Med 09/06/17 11:00 Active 400 mg PO DAILY Metoclopramide [Reglan] Med 09/06/17 17:00 Active 5 mg PO TIDAC Metoprolol Succinate [Toprol XL] Med 09/06/17 11:00 Active 25 mg PO DAILY Morphine Med 09/05/17 23:43 Active 2 mg IVPUSH Q2H PRN Patient's Own Medication [Ptom] Med 09/07/17 09:00 Active 1 each PO DAILY Sodium Chloride 0.9% [Saline Flush] Med 09/05/17 20:49 Active 10 ml FLUSH ASDIRECTED PRN Sodium Chloride 0.9% [Saline Flush] Med 09/05/17 20:49 Active 2.5 ml FLUSH ASDIRECTED PRN atorvaSTATin [Lipitor] Med 09/06/17 21:00 Active 40 mg PO BEDTIME diphenhydrAMINE [Benadryl] Med 09/06/17 00:37 Active 50 mg IVPUSH Q6H PRN traMADol [Ultram] Med 09/06/17 10:51 Active 50 mg PO BID PRN Saline Lock Insert [OM.PC] Stat Ot 09/05/17 20:49 Ordered Transfuse PRBC [Transfuse Red Blood Cells] [COMM] Stat Ot 09/05/17 21:41 Ordered Transfuse PRBC [Transfuse Red Blood Cells] [COMM] Ot 09/06/17 03:41 Ordered Urgent Transfuse RBC [Transfuse Red Blood Cells] [COMM] Ot 09/06/17 10:31 Ordered Routine Medication Orders Albuterol (Proventil Neb Soln) 2.5 mg NEB Q4H PRN PRN Reason: Wheezing Albuterol (Ventolin Hfa) 0 gm INH Q6H PRN PRN Reason: Shortness of Breath Atorvastatin Calcium (Lipitor) 40 mg PO BEDTIME [facility] Cyanocobalamin (Vitamin B12) 1,000 mcg SUBCUT DAILY [facility] Last Admin: 09/06/17 11:41 Dose: 1,000 mcg Diltiazem HCl (Cardizem Cd) 180 mg PO DAILY [facility] Diphenhydramine HCl (Benadryl) 50 mg IVPUSH Q6H PRN PRN Reason: Itching Last Admin: 09/06/17 11:53 Dose: 50 mg Admin: 09/06/17 00:46 Dose: 50 mg Gabapentin (Neurontin) 600 mg PO TID [facility] Last Admin: 09/06/17 13:16 Dose: 600 mg Insulin Aspart (Novolog) 0 unit SUBCUT Q6H [facility]; Protocol Last Admin: 09/06/17 17:47 Dose: Not Given Admin: 09/06/17 11:53 Dose: 2 units Admin: 09/06/17 06:00 Dose: Not Given Admin: 09/06/17 00:00 Dose: Not Given Lisinopril (Prinivil) 5 mg PO DAILY [facility] Last Admin: 09/06/17 11:42 Dose: 5 mg Magnesium Oxide (Magnesium Oxide) 400 mg PO DAILY [facility] Last Admin: 09/06/17 11:42 Dose: 400 mg Metoclopramide HCl (Reglan) 5 mg PO TIDAC [facility] Last Admin: 09/06/17 16:47 Dose: 5 mg Metoprolol Succinate (Toprol Xl) 25 mg PO DAILY [facility] Last Admin: 09/06/17 11:42 Dose: 25 mg Morphine Sulfate (Morphine) 2 mg IVPUSH Q2H PRN PRN Reason: Pain Last Admin: 09/06/17 00:23 Dose: 2 mg Fenofibrate 145 Mg 1 each PO DAILY [facility] Sodium Chloride (Saline Flush) 10 ml FLUSH ASDIRECTED PRN PRN Reason: Keep Vein Open Sodium Chloride (Saline Flush) 2.5 ml FLUSH ASDIRECTED PRN PRN Reason: Keep Vein Open Tramadol HCl (Ultram) 50 mg PO BID PRN PRN Reason: Pain Last Admin: 09/06/17 12:50 Dose: 50 mg Assessment/Plan Comment:: Patient seen and examined . She was discussed with resident , agree with assessment and plan.
[2017-09-06] MEDS ORDERED: Albuterol 8 GM Inhaler INH PRN (10:51)
[2017-09-06] MEDS ORDERED: Albuterol 0.083% 2.5 MG/3 ML Neb Soln NEB PRN (10:51)
[2017-09-06] MEDS ORDERED: DILTIAZEM HCL 180 MG PO SCH (11:00)
--- NOTE | 2017-09-06 11:39 | CR ---
EXAM DATE: 09/05/17 PATIENT'S AGE: 42 Patient: PARADISE BURGOS Facility: [place], [place] Site . Site : [id number] Study: XRay Chest [id number]/26/2018 9:23:51 PM Ordering Physician: Doctor Abdullahi Final Report: HISTORY: Chest pain shortness of breath. Technique: Portable chest. Findings: Normal cardiac mediastinal silhouette. Lungs are clear of an acute airspace or interstitial process. No effusion or pneumothorax. IMPRESSION: 1. No acute pulmonary process. Dictated by Nataliia Rodriguez MD @ Sep 05 2017 9:39PM (Electronic Signature) Report Signed by Proxy. JULY
[2017-09-06] MEDS: Cyanocobalamin (Vitamin B12) 1,000 MCG/ML SDV SUBCUT SCH (11:41)
[2017-09-06] MEDS: Metoprolol Succinate 25 MG Tab.ER PO SCH (11:42)
[2017-09-06] MEDS: Magnesium Oxide 400 MG Tab PO SCH (11:42)
[2017-09-06] MEDS: Lisinopril 5 MG Tab PO SCH (11:42)
[2017-09-06] MEDS: traMADol 50 MG Tab PO PRN ×2 (12:50→22:40)
[2017-09-06] MEDS: Gabapentin 300 MG Cap PO SCH ×2 (13:16→21:22)
[2017-09-06] MEDS ORDERED: Non-Formulary Medication 1 Each (Gabapentin 600 MG) PO SCH (14:00)
[2017-09-06] MEDS: Metoclopramide 10 MG Tab PO SCH (16:47)
[2017-09-06] MEDS ORDERED: atorvaSTATin 40 MG Tab PO SCH (21:00)
[2017-09-07 06:02] LABS: CHLORIDE,CL 105 mmol/L (98-107); SODIUM,NA 140 mmol/L (136-145)
[2017-09-07] MEDS: Gabapentin 300 MG Cap PO SCH (07:00)
[2017-09-07] MEDS: Metoclopramide 10 MG Tab PO SCH (07:20)
[2017-09-07] MEDS ORDERED: Insulin Aspart 100 Units/ML 3 ML Pen SUBCUT SCH (07:30)
[2017-09-07 08:13] VITALS: BP 125/63
[2017-09-07] MEDS: Cyanocobalamin (Vitamin B12) 1,000 MCG/ML SDV SUBCUT SCH (08:13)
[2017-09-07] MEDS: Magnesium Oxide 400 MG Tab PO SCH (08:14)
[2017-09-07] MEDS: Metoprolol Succinate 25 MG Tab.ER PO SCH (08:14)
[2017-09-07] MEDS: Lisinopril 5 MG Tab PO SCH (08:14)
[2017-09-07] MEDS ORDERED: FENOFIBRATE 145 MG PO SCH (09:00)
[2017-09-07] MEDS ORDERED: Diltiazem 180 MG Cap.CD PO SCH (09:00)
--- NOTE | 2017-09-07 10:12 | PCM.DCSUM1 ---
<Mick Figueroa - Last Filed: 09/07/17 10:06> Discharge Summary - Hospital Course Free Text/Narrative:: Admission date: 09/05/2017 Discharge date: 09/07/2017 Admission diagnosis: #1. Chest pain - ACS rule out #2. Microcytic aneima #3. Dizziness #4. History of T2DM, HLD, BKA, HTN, CAD w/ stent #5. Dysmennorhea Discharge diagnosis: #1. Sympomatic anemia - resolved #2. Microcytic anemia #3. Dizziness - resolved #4. History of T2DM, HLD, BKA, HTN, CAD w/ stent #5. [facility] Hospital course: 42F with the above mentioned history presented with a chief complaint as stated above. She was admitted for observation, and for transfusion of PRBC. She received 4 units of PRBC. Hgb at presentation was 6.9, at discharge was 10.5. Her stool tested negative for occult blood. She had an EGD done on 07/31/2017 which was unremarkable aside from GERD. She has been taking omeprazole 20mg. She states that she has had irregular periods with a lot of them being heavy for a long time now. She hasn't had a women Training Intelligence evaluation in over 5 years. I recommended that she be seen by an PRINCIPAL JAVA DEVELOPER for further care in this regard. She was sent home with an appointment to see PRINCIPAL JAVA DEVELOPER , primary care, cardiology given her significant cardiac history and presentation, and surgery. She is being referred to surgery because she has had intractable vomiting thats been ongoing for 4 months now that has no known etiology. She has had an EGD and a gastric emptying study done that were unremarkable. She felt comfortable going home knowing this plan. Discharge meds: #1. Protonix 40mg PO daily #2. Ferrous sulfate 325mg PO daily Diagnosis: Stroke: No - Discharge Data Discharge Date: 09/07/17 Discharge Disposition: Home, Self-Care 01 Condition: Stable - Patient Instructions Diet: Usual Diet as Tolerated Activity: As Tolerated Notify Provider of: Fever, Increased Pain, Swelling and Redness, Drainage, Nausea and/or Vomiting - Discharge Plan Prescriptions/Med Rec: Ferrous Sulfate 325 mg PO WITHBREAKFAST #30 tablet Pantoprazole [ProTONIX] 40 mg PO DAILY 30 Days #30 tab.cr Home Medications: Home Meds Aspirin [Adeel Chewable Aspirin] 81 mg PO DAILY 07/26/14 [History] Nitroglycerin [Nitrostat] 1 tab SL ASDIRECTED PRN 03/04/15 [History] Apixaban [Eliquis] 5 mg PO BID 01/21/17 [History] Gabapentin [Neurontin] 600 mg PO TID 01/21/17 [History] Insulin Detemir [Levemir] 30 units SQ BEDTIME 01/21/17 [History] Albuterol Sulfate 1 unit NEB ASDIRECTED PRN 07/18/17 [History] Albuterol Sulfate [Proair Hfa] 2 puff INH QID PRN 07/18/17 [History] Diltiazem HCl [Dilt-Xr] 180 mg PO DAILY 07/18/17 [History] Fenofibrate Nanocrystallized [Fenofibrate] 145 mg PO DAILY 07/18/17 [History] Glycopyrrolate/Formoterol Fum [Bevespi Aerosphere Inhaler] 2 puff INH BID [History] Insulin Aspart [NovoLOG] 1 injection SUBCUT ASDIRECTED 07/18/17 [History] Lisinopril 5 mg PO DAILY 07/18/17 [History] Magnesium Oxide [Magnesium] 400 mg PO DAILY 07/18/17 [History] Metoprolol Succinate 25 mg PO DAILY 07/18/17 [History] atorvaSTATin Calcium [Atorvastatin Calcium] 40 mg PO BEDTIME 07/18/17 [History] traMADol [Ultram] 50 mg PO BID PRN 07/18/17 [History] Ferrous Sulfate 325 mg PO WITHBREAKFAST #30 tablet 09/07/17 [Rx] Pantoprazole [ProTONIX] 40 mg PO DAILY 30 Days #30 tab.cr 09/07/17 [Rx] Patient Handouts: Anemia, Iron tablets, capsules, extended-release tablets, Pantoprazole tablets, Chest Wall Pain Referrals: [facility] [Outside] Pantera Ng MD [Physician] - 09/20/17 9:30 am Spenser Heller MD [Physician] - 09/22/17 8:30 am Uri Thurston MD [Physician] - 09/12/17 9:00 am Mick Figueroa MD [Resident] - 09/27/17 2:30 pm - Patient Data Vitals - Most Recent: Last Vital Signs Temp 36.9 C 09/07/17 08:10 Pulse 85 09/07/17 08:14 Resp 16 09/07/17 08:10 BP 125/63 09/07/17 08:14 Pulse Ox 98 09/07/17 08:10 Orthostatic Blood Pressure [ 121/68 Standing] Orthostatic Blood Pressure [ 129/68 Sitting] Orthostatic Blood Pressure [ 118/58 Supine] Weight - Most Recent: 205 lb 12.8 oz I&O - Last 24 hours: Intake & Output 09/06/17 09/07/17 09/07/17 22:59 06:59 14:59 Intake Total 857 240 Output Total 1350 900 Balance -493 -660 Lab Results - Last 24 hrs: Laboratory Results - last 24 hr 09/05/17 09/06/17 09/06/17 Range/Units 21:53 07:00 08:34 WBC (4.0-11.0) K/uL RBC (4.30-5.90) M/uL Hgb (12.0-16.0) g/dL Hct (36.0-46.0) % MCV (80.0-98.0) fL MCH (27.0-32.0) pg MCHC (31.0-37.0) g/dL RDW Std Deviation (28.0-62.0) fl RDW Coeff of Demond (11.0-15.0) % Plt Count (150-400) K/uL Neut % (Auto) (48.0-80.0) % Lymph % (Auto) (16.0-40.0) % [place] % (Auto) (0.0-15.0) % Eos % (Auto) (0.0-7.0) % Baso % (Auto) (0.0-1.5) % Neut # (Auto) (1.4-5.7) K/uL Lymph # (Auto) (0.6-2.4) K/uL Preble # (Auto) (0.0-0.8) K/uL Eos # (Auto) (0.0-0.7) K/uL Baso # (Auto) (0.0-0.1) K/uL Smear Path Review SENT TO PATHOLOGY Sodium (136-145) mmol/L Potassium (3.5-5.1) mmol/L Chloride (98-107) mmol/L Carbon Dioxide (21.0-32.0) mmol/L BUN (7.0-18.0) mg/dL Creatinine (0.6-1.0) mg/dL Est Cr Clr Drug Dosing mL/min Estimated GFR (MDRD) ml/min Glucose (74-106) mg/dL POC Glucose (60-110) mg/dL Calcium (8.5-10.1) mg/dL Folate 18.90 (8.60-58.90) ng/mL Blood Type A POSITIVE Antibody Screen NEGATIVE Crossmatch See Detail 09/06/17 09/06/17 09/06/17 Range/Units 11:30 16:23 17:30 WBC (4.0-11.0) K/uL RBC (4.30-5.90) M/uL Hgb 10.8 L (12.0-16.0) g/dL Hct 35.7 L (36.0-46.0) % MCV (80.0-98.0) fL MCH (27.0-32.0) pg MCHC (31.0-37.0) g/dL RDW Std Deviation (28.0-62.0) fl RDW Coeff of Demond (11.0-15.0) % Plt Count (150-400) K/uL Neut % (Auto) (48.0-80.0) % Lymph % (Auto) (16.0-40.0) % Preble % (Auto) (0.0-15.0) % Eos % (Auto) (0.0-7.0) % Baso % (Auto) (0.0-1.5) % Neut # (Auto) (1.4-5.7) K/uL Lymph # (Auto) (0.6-2.4) K/uL Preble # (Auto) (0.0-0.8) K/uL Eos # (Auto) (0.0-0.7) K/uL Baso # (Auto) (0.0-0.1) K/uL Smear Path Review Sodium (136-145) mmol/L Potassium (3.5-5.1) mmol/L Chloride (98-107) mmol/L Carbon Dioxide (21.0-32.0) mmol/L BUN (7.0-18.0) mg/dL Creatinine (0.6-1.0) mg/dL Est Cr Clr Drug Dosing mL/min Estimated GFR (MDRD) ml/min Glucose (74-106) mg/dL POC Glucose 188 H 136 H (60-110) mg/dL Calcium (8.5-10.1) mg/dL Folate (8.60-58.90) ng/mL Blood Type Antibody Screen Crossmatch 09/07/17 09/07/17 Range/Units 04:52 04:52 WBC 6.60 (4.0-11.0) K/uL RBC 5.19 (4.30-5.90) M/uL Hgb 10.5 L (12.0-16.0) g/dL Hct 35.2 L (36.0-46.0) % MCV 67.8 L (80.0-98.0) fL MCH 20.2 L (27.0-32.0) pg MCHC 29.8 L (31.0-37.0) g/dL RDW Std Deviation 62.8 H (28.0-62.0) fl RDW Coeff of Demond 27 H (11.0-15.0) % Plt Count 194 (150-400) K/uL Neut % (Auto) 57.5 (48.0-80.0) % Lymph % (Auto) 33.0 (16.0-40.0) % Preble % (Auto) 7.3 (0.0-15.0) % Eos % (Auto) 1.7 (0.0-7.0) % Baso % (Auto) 0.5 (0.0-1.5) % Neut # (Auto) 3.8 (1.4-5.7) K/uL Lymph # (Auto) 2.2 (0.6-2.4) K/uL Preble # (Auto) 0.5 (0.0-0.8) K/uL Eos # (Auto) 0.1 (0.0-0.7) K/uL Baso # (Auto) 0.0 (0.0-0.1) K/uL Smear Path Review Sodium 140 (136-145) mmol/L Potassium 3.8 (3.5-5.1) mmol/L Chloride 105 (98-107) mmol/L Carbon Dioxide 26.7 (21.0-32.0) mmol/L BUN 10 (7.0-18.0) mg/dL Creatinine 0.8 (0.6-1.0) mg/dL Est Cr Clr Drug Dosing 81.59 mL/min Estimated GFR (MDRD) > 60.0 ml/min Glucose 180 H (74-106) mg/dL POC Glucose (60-110) mg/dL Calcium 8.7 (8.5-10.1) mg/dL Folate (8.60-58.90) ng/mL Blood Type Antibody Screen Crossmatch Med Orders - Current: Current Medications Albuterol (Proventil Neb Soln) 2.5 mg NEB Q4H PRN PRN Reason: Wheezing Albuterol (Ventolin Hfa) 0 gm INH Q6H PRN PRN Reason: Shortness of Breath Atorvastatin Calcium (Lipitor) 40 mg PO BEDTIME [facility] Last Admin: 09/06/17 21:22 Dose: 40 mg Cyanocobalamin (Vitamin B12) 1,000 mcg SUBCUT DAILY [facility] Last Admin: 09/07/17 08:13 Dose: 1,000 mcg Diltiazem HCl (Cardizem Cd) 180 mg PO DAILY [facility] Last Admin: 09/07/17 08:14 Dose: 180 mg Diphenhydramine HCl (Benadryl) 50 mg IVPUSH Q6H PRN PRN Reason: Itching Last Admin: 09/06/17 11:53 Dose: 50 mg Ferrous Sulfate (Ferrous Sulfate) 325 mg PO WITHBREAKFAST [facility] Gabapentin (Neurontin) 600 mg PO TID [facility] Last Admin: 09/07/17 07:00 Dose: 600 mg Insulin Aspart (Novolog) 0 unit SUBCUT QIDACANDBED [facility]; Protocol Last Admin: 09/07/17 07:24 Dose: 4 units Lisinopril (Prinivil) 5 mg PO DAILY [facility] Last Admin: 09/07/17 08:14 Dose: 5 mg Magnesium Oxide (Magnesium Oxide) 400 mg PO DAILY [facility] Last Admin: 09/07/17 08:14 Dose: 400 mg Metoclopramide HCl (Reglan) 5 mg PO TIDAC [facility] Last Admin: 09/07/17 07:20 Dose: 5 mg Metoprolol Succinate (Toprol Xl) 25 mg PO DAILY [facility] Last Admin: 09/07/17 08:14 Dose: 25 mg Fenofibrate 145 Mg 1 each PO DAILY [facility] Last Admin: 09/07/17 08:16 Dose: Not Given Sodium Chloride (Saline Flush) 10 ml FLUSH ASDIRECTED PRN PRN Reason: Keep Vein Open Sodium Chloride (Saline Flush) 2.5 ml FLUSH ASDIRECTED PRN PRN Reason: Keep Vein Open Tramadol HCl (Ultram) 50 mg PO BID PRN PRN Reason: Pain Last Admin: 09/06/17 22:40 Dose: 50 mg Discontinued Medications Aspirin (Aspirin) 324 mg PO ONETIME ONE Stop: 09/05/17 20:50 Last Admin: 09/05/17 21:01 Dose: Not Given Insulin Aspart (Novolog) 0 unit SUBCUT Q6H [facility]; Protocol Last Admin: 09/06/17 17:47 Dose: Not Given Morphine Sulfate (Morphine) 2 mg IVPUSH Q2H PRN PRN Reason: Pain Last Admin: 09/06/17 00:23 Dose: 2 mg Pantoprazole Sodium (Protonix Iv) 80 mg IVPUSH .BOLUS ONE Stop: 09/05/17 21:46 Last Admin: 09/05/17 22:08 Dose: 80 mg <[place] - Last Filed: 09/07/17 20:30> Discharge Summary - Hospital Course Free Text/Narrative:: Patient seen and examined ,discussed with resident , agree with discharge summary. - Patient Data Vitals - Most Recent: Last Vital Signs Temp 98.5 F 09/07/17 08:10 Pulse 85 09/07/17 08:14 Resp 16 09/07/17 08:10 BP 125/63 09/07/17 08:14 Pulse Ox 98 09/07/17 08:10 Orthostatic Blood Pressure [ 121/68 Standing] Orthostatic Blood Pressure [ 129/68 Sitting] Orthostatic Blood Pressure [ 118/58 Supine] I&O - Last 24 hours: Intake & Output 09/07/17 09/07/17 09/07/17 06:59 14:59 22:59 Intake Total 240 Output Total 900 Balance -660 Lab Results - Last 24 hrs: Laboratory Results - last 24 hr 09/07/17 09/07/1718 Range/Units 04:52 04:52 06:16 WBC 6.60 (4.0-11.0) K/uL RBC 5.19 (4.30-5.90) M/uL Hgb 10.5 L (12.0-16.0) g/dL Hct 35.2 L (36.0-46.0) % MCV 67.8 L (80.0-98.0) fL MCH 20.2 L (27.0-32.0) pg MCHC 29.8 L (31.0-37.0) g/dL RDW Std Deviation 62.8 H (28.0-62.0) fl RDW Coeff of Demond 27 H (11.0-15.0) % Plt Count 194 (150-400) K/uL Neut % (Auto) 57.5 (48.0-80.0) % Lymph % (Auto) 33.0 (16.0-40.0) % Preble % (Auto) 7.3 (0.0-15.0) % Eos % (Auto) 1.7 (0.0-7.0) % Baso % (Auto) 0.5 (0.0-1.5) % Neut # (Auto) 3.8 (1.4-5.7) K/uL Lymph # (Auto) 2.2 (0.6-2.4) K/uL Preble # (Auto) 0.5 (0.0-0.8) K/uL Eos # (Auto) 0.1 (0.0-0.7) K/uL Baso # (Auto) 0.0 (0.0-0.1) K/uL Sodium 140 (136-145) mmol/L Potassium 3.8 (3.5-5.1) mmol/L Chloride 105 (98-107) mmol/L Carbon Dioxide 26.7 (21.0-32.0) mmol/L BUN 10 (7.0-18.0) mg/dL Creatinine 0.8 (0.6-1.0) mg/dL Est Cr Clr Drug Dosing 81.59 mL/min Estimated GFR (MDRD) > 60.0 ml/min Glucose 180 H (74-106) mg/dL POC Glucose 220 H (60-110) mg/dL Calcium 8.7 (8.5-10.1) mg/dL Iron (50-175) ug/dL TIBC (250-450) ug/dL % Saturation (20-55) % Ferritin (8-252) ng/mL 09/07/17 Range/Units 09:23 WBC (4.0-11.0) K/uL RBC (4.30-5.90) M/uL Hgb (12.0-16.0) g/dL Hct (36.0-46.0) % MCV (80.0-98.0) fL MCH (27.0-32.0) pg MCHC (31.0-37.0) g/dL RDW Std Deviation (28.0-62.0) fl RDW Coeff of Demond (11.0-15.0) % Plt Count (150-400) K/uL Neut % (Auto) (48.0-80.0) % Lymph % (Auto) (16.0-40.0) % Preble % (Auto) (0.0-15.0) % Eos % (Auto) (0.0-7.0) % Baso % (Auto) (0.0-1.5) % Neut # (Auto) (1.4-5.7) K/uL Lymph # (Auto) (0.6-2.4) K/uL Preble # (Auto) (0.0-0.8) K/uL Eos # (Auto) (0.0-0.7) K/uL Baso # (Auto) (0.0-0.1) K/uL Sodium (136-145) mmol/L Potassium (3.5-5.1) mmol/L Chloride (98-107) mmol/L Carbon Dioxide (21.0-32.0) mmol/L BUN (7.0-18.0) mg/dL Creatinine (0.6-1.0) mg/dL Est Cr Clr Drug Dosing mL/min Estimated GFR (MDRD) ml/min Glucose (74-106) mg/dL POC Glucose (60-110) mg/dL Calcium (8.5-10.1) mg/dL Iron 26 L (50-175) ug/dL TIBC 344 (250-450) ug/dL % Saturation 7.56 L (20-55) % Ferritin 9 (8-252) ng/mL Med Orders - Current: Current Medications Discontinued Medications Albuterol (Proventil Neb Soln) 2.5 mg NEB Q4H PRN PRN Reason: Wheezing Albuterol (Ventolin Hfa) 0 gm INH Q6H PRN PRN Reason: Shortness of Breath Aspirin (Aspirin) 324 mg PO ONETIME ONE Stop: 09/05/17 20:50 Last Admin: 09/05/17 21:01 Dose: Not Given Atorvastatin Calcium (Lipitor) 40 mg PO BEDTIME [facility] Last Admin: 09/06/17 21:22 Dose: 40 mg Cyanocobalamin (Vitamin B12) 1,000 mcg SUBCUT DAILY [facility] Last Admin: 09/07/17 08:13 Dose: 1,000 mcg Diltiazem HCl (Cardizem Cd) 180 mg PO DAILY [facility] Last Admin: 09/07/17 08:14 Dose: 180 mg Diphenhydramine HCl (Benadryl) 50 mg IVPUSH Q6H PRN PRN Reason: Itching Last Admin: 09/06/17 11:53 Dose: 50 mg Ferrous Sulfate (Ferrous Sulfate) 325 mg PO WITHBREAKFAST [facility] Gabapentin (Neurontin) 600 mg PO TID [facility] Last Admin: 09/07/17 07:00 Dose: 600 mg Insulin Aspart (Novolog) 0 unit SUBCUT Q6H [facility]; Protocol Last Admin: 09/06/17 17:47 Dose: Not Given Insulin Aspart (Novolog) 0 unit SUBCUT QIDACANDBED [facility]; Protocol Last Admin: 09/07/17 07:24 Dose: 4 units Lisinopril (Prinivil) 5 mg PO DAILY [facility] Last Admin: 09/07/17 08:14 Dose: 5 mg Magnesium Oxide (Magnesium Oxide) 400 mg PO DAILY [facility] Last Admin: 09/07/17 08:14 Dose: 400 mg Metoclopramide HCl (Reglan) 5 mg PO TIDAC [facility] Last Admin: 09/07/17 07:20 Dose: 5 mg Metoprolol Succinate (Toprol Xl) 25 mg PO DAILY [facility] Last Admin: 09/07/17 08:14 Dose: 25 mg Morphine Sulfate (Morphine) 2 mg IVPUSH Q2H PRN PRN Reason: Pain Last Admin: 09/06/17 00:23 Dose: 2 mg Pantoprazole Sodium (Protonix Iv) 80 mg IVPUSH .BOLUS ONE Stop: 09/05/17 21:46 Last Admin: 09/05/17 22:08 Dose: 80 mg Fenofibrate 145 Mg 1 each PO DAILY TIFFANIE Last Admin: 09/07/17 08:16 Dose: Not Given Sodium Chloride (Saline Flush) 10 ml FLUSH ASDIRECTED PRN PRN Reason: Keep Vein Open Sodium Chloride (Saline Flush) 2.5 ml FLUSH ASDIRECTED PRN PRN Reason: Keep Vein Open Tramadol HCl (Ultram) 50 mg PO BID PRN PRN Reason: Pain Last Admin: 09/06/17 22:40 Dose: 50 mg
[2017-09-08] MEDS ORDERED: Ferrous Sulfate 325 MG Tab PO SCH (08:00)
== END 2017-09-07 11:10 | disposition home or self-care (01) ==
LOC: MW.ED 20:44 → MW.MS 21:44
PROVIDERS: ADMIT Internal Medicine; ATTEND Internal Medicine
DX: R07.9 Chest pain, unspecified (principal); D53.9 Nutritional anemia, unspecified; E11.9 Type 2 diabetes mellitus without complications; E78.00 Pure hypercholesterolemia, unspecified; E78.5 Hyperlipidemia, unspecified; I10 Essential (primary) hypertension; I25.2 Old myocardial infarction; I25.119 Atherosclerotic heart disease of native coronary artery with unspecified angina pectoris; K21.9 Gastro-esophageal reflux disease without esophagitis; K44.9 Diaphragmatic hernia without obstruction or gangrene; J40 Bronchitis, not specified as acute or chronic; M19.90 Unspecified osteoarthritis, unspecified site; E66.9 Obesity, unspecified; Z79.4 Long term (current) use of insulin; Z79.82 Long term (current) use of aspirin; Z79.899 Other long term (current) drug therapy; Z87.891 Personal history of nicotine dependence
CPT/HCPCS: 36415; 36430; 71045; 71045-26; 80048; 80053; 81001; 82607; 82728; 82746; 82962; 83036; 83550; 83690; 83880; 84484; 85014; 85018; 85025; 85045; 86850; 86900; 86901; 86920; 86921; 86922; 88104; 93005; 96374; 99285-25; A9270-GY; C9113; J1200; J1815-GY; J2270; J3420; P9016

== ENCOUNTER 2017-11-09 07:31 | Day surgery (SDC) | payer MEDICAID ==
[~2017-11-09 07:31] MED LIST changes: +Dexamethasone 4 MG/ML 5 ML MDV ONE; -Lactated Ringers 1,000 ML IV SCH; -Lidocaine 2% 5 ML SDV ONE; +Midazolam 1 MG/ML 2 ML SDV ONE; +Ondansetron 4 MG/2 ML SDV ONE; +Rocuronium 10 MG/ML 10 ML Syringe ONE; +Sodium Chloride 0.9% 10 ML Syringe FLUSH PRN; +Sodium Chloride 0.9% 2.5 ML Syringe FLUSH PRN; +Succinylcholine 200 MG/10 ML MDV ONE; +ceFAZolin 2 GM in Premix Bag 1 BAG IV ONE; +ceFAZolin/Dextrose,Iso-Osmotic 2 GM/50 ML Duplex Bag IV ONE; +fentaNYL 250 MCG/5 ML SDV ONE
[2017-11-09] MEDS: Lactated Ringers 1,000 ML IV SCH ×2 (08:38→18:59)
[2017-11-09] MEDS ORDERED: Albuterol/Ipratropium 3.0-0.5 MG/3 ML Neb Soln NEB ONE (08:46)
--- NOTE | 2017-11-09 08:52 | PCM.PREANE ---
Preanesthetic Assessment - Procedure Proposed Procedure: vaginal hysterectomy - Anesthesia/Transfusion/Family Hx Anesthesia History: Prior Anesthesia Without Reaction Other Type of Anesthesia Reaction Comment: Deneis any known problem with anesthesia in past Family History of Anesthesia Reaction: No Transfusion History: Prior Transfusion Without Reaction Intubation History: Unknown Additional History: note vascular history; bridge Lovenox (last dose 29Aug AM); FBS 296 to 229 with 20u Novolog by patient; asthmatic history.. - Review of Systems General: No Symptoms Pulmonary: Wheezing, Other (daily bronchodilator tx) Cardiovascular: Other (stent(s)) Gastrointestinal: Other (GERD) Neurological: Gait Disturbance (loss of r leg (BKA) due to arterial embolus) Other: Reports: Diabetes (insulin dependent), Anxiety - Physical Assessment NPO Status Date: 11/08/17 NPO Status Time: 23:00 O2 Sat by Pulse Oximetry: 97 Respiratory Rate: 15 Vital Signs: Last Vital Signs Temp 97.5 F 11/09/17 08:05 Pulse 77 11/09/17 08:05 Resp 15 11/09/17 08:05 BP 116/69 11/09/17 08:05 Pulse Ox 97 11/09/17 08:05 Height: 5 ft 5 in Weight: 208 lb ASA Class: 3 Mental Status: Alert & Oriented x3 Airway Class: Mallampati = 2 Thyro-Mental Finger Breadths: 3 Mouth Opening Finger Breadths: 3 ROM/Head Extension: Limited/Partial Lungs: Clear to Auscultation, Normal Respiratory Effort Cardiovascular: Regular Rate, Regular Rhythm, No Murmurs - Lab Values: Laboratory Last Values WBC 5.83 K/uL (4.0-11.0) 11/08/17 09:45 RBC 4.92 M/uL (4.30-5.90) 11/08/17 09:45 Hgb 13.1 g/dL (12.0-16.0) 11/08/17 09:45 Hct 39.6 % (36.0-46.0) 11/08/17 09:45 MCV 80.5 fL (80.0-98.0) 11/08/17 09:45 MCH 26.6 pg (27.0-32.0) L 11/08/17 09:45 MCHC 33.1 g/dL (31.0-37.0) 11/08/17 09:45 RDW Std Deviation 54.6 fl (28.0-62.0) 11/08/17 09:45 RDW Coeff of Demond 19 % (11.0-15.0) H 11/08/17 09:45 Plt Count 286 K/uL (150-400) 11/08/17 09:45 Nucleated RBC % 0.0 /100WBC 11/08/17 09:45 Nucleated RBCs # 0 K/uL 11/08/17 09:45 INR 0.92 11/08/17 09:45 APTT 37.8 SEC (18.6-31.3) H 11/08/17 09:45 POC Glucose 229 mg/dL (60-110) H 11/09/17 08:14 HCG, Qual NEGATIVE (NEG) 11/08/17 09:45 Blood Type A POSITIVE 11/08/17 09:45 Antibody Screen NEGATIVE 11/08/17 09:45 - Allergies Allergies/Adverse Reactions: Allergies Allergy/AdvReac Type Severity Reaction Status Date / Time prednisone Allergy Mild Nausea Verified 11/03/17 12:21 doxycycline Allergy Hives Verified 11/03/17 12:21 morphine Allergy Itching Verified 11/03/17 12:21 - Blood Blood Available: No Product(s) Available: None - Anesthesia Plan Pre-Op Medication Ordered: Other (bronchodilator) - Acknowledgements Anesthesia Type Planned: General Anesthesia Pt an Appropriate Candidate for the Planned Anesthesia: Yes Alternatives and Risks of Anesthesia Discussed w Pt/Guardian: Yes Pt/Guardian Understands and Agrees with Anesthesia Plan: Yes PreAnesthesia Questionnaire HEENT History: Reports: Impaired Vision Other HEENT History: wears glasses, Cardiovascular History: Reports: Angina, Blood Clots/VTE/DVT, High Cholesterol, Hypertension, NV Other Cardiovascular History: hx of NV with cardiac stenting, hx DVT rt leg Respiratory History: Reports: Asthma, COPD Other Respiratory History: hx bronchitis and pneumonia Gastrointestinal History: Reports: GERD, Hiatal Hernia Genitourinary History: Reports: None 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 R leg amputation Neurological History: Reports: None Psychiatric History: Reports: None Endocrine/Metabolic History: Reports: Diabetes, Type II, Obesity/BMI 30+ Hematologic History: Reports: Anemia, Anticoagulation Therapy, Blood Transfusion (s) Immunologic History: Reports: None Oncologic (Cancer) History: Reports: None Dermatologic History: Reports: None - Infectious Disease History Infectious Disease History: Reports: Chicken Pox, Measles - Past Surgical History Head Surgeries/Procedures: Reports: None HEENT Surgical History: Reports: None, Myringotomy w Tube(s) Cardiovascular Surgical History: Reports: Coronary Artery Stent Other Cardiovascular Surgeries/Procedures: 2014 Respiratory Surgical History: Reports: None GI Surgical History: Reports: Cholecystectomy, Colonoscopy, EGD Female Surgical History: Reports: None Endocrine Surgical History: Reports: None Neurological Surgical History: Reports: None Musculoskeletal Surgical History: Reports: Other (See Below) Other Musculoskeletal Surgeries/Procedures:: R below the knee amputation Oncologic Surgical History: Reports: None Dermatological Surgical History: Reports: None - SUBSTANCE USE Smoking Status *Q: Former Smoker Recreational Drug Use History: No - HOME MEDS Home Medications: Home Meds Aspirin [Adeel Chewable Aspirin] 81 mg PO DAILY 07/26/14 [History] Nitroglycerin [Nitrostat] 1 tab SL ASDIRECTED PRN 03/04/15 [History] Apixaban [Eliquis] 5 mg PO BID 01/21/17 [History] Gabapentin [Neurontin] 600 mg PO TID 01/21/17 [History] Insulin Detemir [Levemir] 75 units SQ BEDTIME 01/21/17 [History] Albuterol Sulfate 1 unit NEB ASDIRECTED PRN 07/18/17 [History] Albuterol Sulfate [Proair Hfa] 2 puff INH QID PRN 07/18/17 [History] Diltiazem HCl [Dilt-Xr] 180 mg PO DAILY 07/18/17 [History] Fenofibrate Nanocrystallized [Fenofibrate] 145 mg PO DAILY 07/18/17 [History] Insulin Aspart [NovoLOG] 1 injection SUBCUT ASDIRECTED 07/18/17 [History] Lisinopril 5 mg PO DAILY 07/18/17 [History] Magnesium Oxide [Magnesium] 400 mg PO DAILY 07/18/17 [History] Metoprolol Succinate 25 mg PO DAILY 07/18/17 [History] atorvaSTATin Calcium [Atorvastatin Calcium] 40 mg PO BEDTIME 07/18/17 [History] traMADol [Ultram] 50 mg PO BID PRN 07/18/17 [History] Ferrous Sulfate 325 mg PO WITHBREAKFAST #30 tablet 09/07/17 [Rx] Albuterol Sulfate [Proair Hfa] 2 puff INH QID PRN 11/07/17 [History] Cyanocobalamin (Vitamin B12) [Vitamin B12] 1,000 mcg PO DAILY 11/07/17 [History] Enoxaparin [Lovenox] 1 injection SUBCUT BID 11/07/17 [History] Isosorbide Mononitrate [Isosorbide Mononitrate ER] 30 mg PO DAILY 11/07/17 [ History] Liraglutide [Victoza] 1.2 mg SUBCUT DAILY 11/07/17 [History] Omeprazole 20 mg PO DAILY 11/07/17 [History] Oxymetazoline [Afrin Original 0.05% Nasal [place]] 1 spray NASBOTH ASDIRECTED [History] metFORMIN HCl [Metformin HCl] 1,000 mg PO BID 11/07/17 [History] - CURRENT (IN HOUSE) MEDS Current Meds: Current Medications Albuterol/Ipratropium (Duoneb 3.0-0.5 Mg/3 Ml) 3 ml NEB ONETIME ONE Stop: 11/09/17 08:47 Lactated Ringer's (Ringers, Lactated) 1,000 mls @ 125 mls/hr IV ASDIRECTED TIFFANIE Last Admin: 11/09/17 08:38 Dose: 125 mls/hr Sodium Chloride (Saline Flush) 10 ml FLUSH ASDIRECTED PRN PRN Reason: Keep Vein Open Sodium Chloride (Saline Flush) 2.5 ml FLUSH ASDIRECTED PRN PRN Reason: Keep Vein Open Discontinued Medications Cefazolin Sodium/Dextrose (Ancef) Confirm Administered Dose 2 gm IV .STK-MED ONE Stop: 11/09/17 07:25 Dexamethasone (Dexamethasone) Confirm Administered Dose 20 mg .ROUTE .STK-MED ONE Stop: 11/09/17 07:27 Fentanyl (Sublimaze) Confirm Administered Dose 250 mcg .ROUTE .STK-MED ONE Stop: 11/09/17 07:26 Cefazolin Sodium/Dextrose 2 gm (/ Premix) 50 mls @ 100 mls/hr IV ONETIME ONE Stop: 11/08/17 09:35 Lidocaine HCl (Xylocaine-Mpf 1%) Confirm Administered Dose 5 mls @ as directed .ROUTE .STK-MED ONE Stop: 11/09/17 07:27 Midazolam HCl (Versed 1 Mg/Ml) Confirm Administered Dose 2 mg .ROUTE .STK-MED ONE Stop: 11/09/17 07:26 Ondansetron HCl (Zofran) Confirm Administered Dose 4 mg .ROUTE .STK-MED ONE Stop: 11/09/17 07:27 Propofol (Diprivan 20 Ml) Confirm Administered Dose 200 mg .ROUTE .STK-MED ONE Stop: 11/09/17 07:26 Rocuronium [place] (Zemuron) Confirm Administered Dose 100 mg .ROUTE .STK-MED ONE Stop: 11/09/17 07:28 Succinylcholine Chloride (Quelicin) Confirm Administered Dose 200 mg .ROUTE .STK -MED ONE Stop: 11/09/17 07:28
[2017-11-09] MEDS ORDERED: Albuterol 6.7 GM Inhaler INH ONE (10:04)
[2017-11-09] MEDS ORDERED: Fluorescein 5 ML Vial ONE (10:17)
[2017-11-09] MEDS ORDERED: fentaNYL 100 MCG/2 ML SDV IVPUSH PRN (10:26)
[2017-11-09] MEDS ORDERED: Neostigmine Methylsulfate 1 MG/ML 5 ML Syringe ONE (10:40)
[2017-11-09] MEDS ORDERED: Glycopyrrolate 0.2 MG/ML SDV ONE ×2 (10:40→10:41)
[2017-11-09] MEDS ORDERED: HYDROmorphone 2 MG/ML SDV ONE (10:54)
[2017-11-09] MEDS ORDERED: Morphine 4 MG/ML Syringe IVPUSH PRN (11:04)
[2017-11-09] MEDS ORDERED: Ketorolac 30 MG/ML SDV IVPUSH ONE (11:04)
[2017-11-09] MEDS ORDERED: Acetaminophen/oxyCODONE 325-5 MG Tab PO PRN (11:04)
[2017-11-09] MEDS ORDERED: Ketorolac 30 MG/ML SDV IVPUSH PRN (11:04)
[2017-11-09] MEDS ORDERED: Ondansetron 4 MG/2 ML SDV IVPUSH PRN (11:04)
--- NOTE | 2017-11-09 11:09 | PCM.OPNOTE ---
- General Post-Op/Procedure Note Date of Surgery/Procedure: 11/09/17 Operative Procedure(s): TVH, Cysto Pre Op Diagnosis: DUB Post-Op Diagnosis: Same Anesthesia Technique: General ET Tube Primary Surgeon: Spenser Heller Manufacturing Engineer: Merlyn Klein EBL in mLs: 150 Complications: None Condition: Good
[2017-11-09] MEDS ORDERED: Acetaminophen 1,000 MG in Premix Bag 1 BAG IV ONE (11:34)
[2017-11-09] MEDS ORDERED: Albuterol/Ipratropium 3.0-0.5 MG/3 ML Neb Soln NEB PRN (11:55)
--- NOTE | 2017-11-09 12:07 | PCM.POSTAN ---
POST ANESTHESIA ASSESSMENT - VITAL SIGNS Pulse Rate: 71 SaO2: 94 (10l O2) Resp Rate: 17 Blood Pressure: 117/55 - RESPIRATORY Respiratory Status: Respiratory Rate WNL, Airway Patent, O2 Saturation Stable ( but low without pain complaint) - CARDIOVASCULAR CV Status: Pulse Rate WNL, Blood Pressure Stable - GASTROINTESTINAL GI Status: No Symptoms Free Text/Narrative:: fbs 217 - PAIN Pain Score: 8 (not fitting with her vitals - exaggerated) - POST OP HYDRATION Hydration Status: Adequate & Stable - OBSERVATIONS Free Text/Narrative:: q 6hr duo Nebs ordered for brochodilator treatment; expect O2 requirement in hospital room.
[2017-11-09] MEDS: Promethazine 25 MG/ML SDV IM PRN ×2 (12:25→18:41)
[2017-11-09] MEDS: Acetaminophen/oxyCODONE 325-5 MG Tab PO PRN ×2 (13:05→19:43)
--- NOTE | 2017-11-09 13:41 | OR ---
SURGEON: Spenser Heller MD DATE OF PROCEDURE: 11/09/2017 PREOPERATIVE DIAGNOSIS: Menometrorrhagia. POSTOPERATIVE DIAGNOSIS: Menometrorrhagia. OPERATIONS PERFORMED: Total vaginal hysterectomy and cystoscopy. BEHAVIORAL TECHNICIAN: RON Fitch. ANESTHESIA: General endotracheal intubation. ANESTHESIOLOGIST: Katharina, nurse magnetic grinder operator and Dr. Arizmendi. ESTIMATED BLOOD LOSS: 150 mL. COMPLICATIONS: None. INDICATION FOR SURGERY: Penrose refer to the admit note. PROCEDURE IN DETAIL: The patient was brought to the OR, properly identified. After adequate level of general anesthesia, the patient was placed in lithotomy position, prepped and draped in sterile fashion as usual. A short weighted speculum placed in vagina. Straight catheter was used to empty the bladder and circular incision in the vaginal mucosa was done around the cervix. Posterior cul-de-sac was entered posteriorly with Leger scissors and the short weighted speculum was placed with extended long weighted speculum. The uterosacral ligament identified from both sides, clamped with a curved Zeppelin, transected, and suture ligated with 2-0 Vicryl pop-off. The same thing was done with the cardinal ligament and then cervical vesicle space was entered anteriorly. The bladder pushed totally completely away from the operative field and then the broad ligament was clamped with curved Zeppelin from both sides, transected, and suture ligated with 2-0 Vicryl pop-off. The uterine vessel suture ligated the stents and the round ligament clamped with a curved Zeppelin, transected, and suture ligated with 2-0 Vicryl pop-off. The uterus was delivered posteriorly and 90-degree Zeppelin applied to the superior pedicle preserving both ovary and then the uterus was removed. The superior pedicle tied twice with a free tie on both sides. Inspection of the entire operative field shows no oozing, no bleeding. We proceeded to close the vaginal cuff with 2-0 Vicryl interrupted [id number] suture. While we were doing that, we asked the anesthesia personnel to give the patient 5 mL of fluorescein and then cystoscopy was performed. The bladder was intact. Both ureteric orifices were seen with the dye coming from both of them, thus the patency of both ureters verified. Rectal examination was performed to make sure that there was no rectal injury. Once the ascertaining completed, the procedure ended. Instrument and sponge count were correct. The patient tolerated the procedure well and went to recovery room in stable general condition. LINDSEY SIMON /[id number]
[2017-11-09] MEDS: HYDROmorphone 2 MG/ML SDV IVPUSH PRN ×2 (16:51→21:17)
[2017-11-09] MEDS: Insulin Aspart 100 Units/ML 3 ML Pen SUBCUT SCH ×2 (16:55→21:31)
[2017-11-10] MEDS: HYDROmorphone 2 MG/ML SDV IVPUSH PRN (02:30)
[2017-11-10 05:45] LABS: CHLORIDE,CL 102 mmol/L (98-107); SODIUM,NA 136 mmol/L (136-145)
[2017-11-10] MEDS: Insulin Aspart 100 Units/ML 3 ML Pen SUBCUT SCH (07:20)
[2017-11-10] MEDS: Acetaminophen/oxyCODONE 325-5 MG Tab PO PRN (08:25)
[2017-11-10 08:31] VITALS: BP 119/65
--- NOTE | 2017-11-10 09:01 | PCM.SURGPN ---
- General Info Date of Service: 11/10/17 POD#: 1 Functional Status: Reports: Pain Controlled - Review of Systems General: Reports: No Symptoms HEENT: Reports: No Symptoms Pulmonary: Reports: No Symptoms Cardiovascular: Reports: No Symptoms Gastrointestinal: Reports: No Symptoms Genitourinary: Reports: No Symptoms Musculoskeletal: Reports: No Symptoms Skin: Reports: No Symptoms Neurological: Reports: No Symptoms Psychiatric: Reports: No Symptoms - Patient Data Vitals - Most Recent: Last Vital Signs Temp 36.8 C 11/10/17 08:00 Pulse 84 11/10/17 08:00 Resp 16 11/10/17 08:00 BP 119/65 11/10/17 08:00 Pulse Ox 94 L 11/10/17 08:00 Weight - Most Recent: 94.347 kg I&O - Last 24 Hours: Intake & Output 11/09/17 11/10/17 11/10/17 22:59 06:59 14:59 Intake Total 893 2500 Output Total 0 3300 Balance 893 -800 Lab Results Last 24 Hrs: Laboratory Results - last 24 hr 11/09/17 11/09/17 11/09/17 Range/Units 11:20 13:06 16:38 WBC (4.0-11.0) K/uL RBC (4.30-5.90) M/uL Hgb (12.0-16.0) g/dL Hct (36.0-46.0) % MCV (80.0-98.0) fL MCH (27.0-32.0) pg MCHC (31.0-37.0) g/dL RDW Std Deviation (28.0-62.0) fl RDW Coeff of Demond (11.0-15.0) % Plt Count (150-400) K/uL MPV (7.40-12.00) fL Neut % (Auto) (48.0-80.0) % Lymph % (Auto) (16.0-40.0) % [place] % (Auto) (0.0-15.0) % Eos % (Auto) (0.0-7.0) % Baso % (Auto) (0.0-1.5) % Neut # (Auto) (1.4-5.7) K/uL Lymph # (Auto) (0.6-2.4) K/uL [place] # (Auto) (0.0-0.8) K/uL Eos # (Auto) (0.0-0.7) K/uL Baso # (Auto) (0.0-0.1) K/uL Nucleated RBC % /100WBC Nucleated RBCs # K/uL Sodium (136-145) mmol/L Potassium (3.5-5.1) mmol/L Chloride (98-107) mmol/L Carbon Dioxide (21.0-32.0) mmol/L BUN (7.0-18.0) mg/dL Creatinine (0.6-1.0) mg/dL Est Cr Clr Drug Dosing mL/min Estimated GFR (MDRD) ml/min Glucose (74-106) mg/dL POC Glucose 217 H 267 H 333 H (60-110) mg/dL Calcium (8.5-10.1) mg/dL 11/09/17 11/10/17 11/10/17 Range/Units 21:00 05:00 05:00 WBC 6.94 (4.0-11.0) K/uL RBC 4.31 (4.30-5.90) M/uL Hgb 11.5 L (12.0-16.0) g/dL Hct 34.9 L (36.0-46.0) % MCV 81.0 (80.0-98.0) fL MCH 26.7 L (27.0-32.0) pg MCHC 33.0 (31.0-37.0) g/dL RDW Std Deviation 51.9 (28.0-62.0) fl RDW Coeff of Demond 18 H (11.0-15.0) % Plt Count 220 (150-400) K/uL MPV 10.10 (7.40-12.00) fL Neut % (Auto) 79.4 (48.0-80.0) % Lymph % (Auto) 13.8 L (16.0-40.0) % [place] % (Auto) 6.8 (0.0-15.0) % Eos % (Auto) 0.0 (0.0-7.0) % Baso % (Auto) 0.0 (0.0-1.5) % Neut # (Auto) 5.5 (1.4-5.7) K/uL Lymph # (Auto) 1.0 (0.6-2.4) K/uL [place] # (Auto) 0.5 (0.0-0.8) K/uL Eos # (Auto) 0.0 (0.0-0.7) K/uL Baso # (Auto) 0.0 (0.0-0.1) K/uL Nucleated RBC % 0.0 /100WBC Nucleated RBCs # 0 K/uL Sodium 136 (136-145) mmol/L Potassium 4.0 (3.5-5.1) mmol/L Chloride 102 (98-107) mmol/L Carbon Dioxide 26.4 (21.0-32.0) mmol/L BUN 10 (7.0-18.0) mg/dL Creatinine 0.7 (0.6-1.0) mg/dL Est Cr Clr Drug Dosing 93.25 mL/min Estimated GFR (MDRD) > 60.0 ml/min Glucose 322 H (74-106) mg/dL POC Glucose 421 H (60-110) mg/dL Calcium 8.7 (8.5-10.1) mg/dL 11/10/17 Range/Units 06:09 WBC (4.0-11.0) K/uL RBC (4.30-5.90) M/uL Hgb (12.0-16.0) g/dL Hct (36.0-46.0) % MCV (80.0-98.0) fL MCH (27.0-32.0) pg MCHC (31.0-37.0) g/dL RDW Std Deviation (28.0-62.0) fl RDW Coeff of Demond (11.0-15.0) % Plt Count (150-400) K/uL MPV (7.40-12.00) fL Neut % (Auto) (48.0-80.0) % Lymph % (Auto) (16.0-40.0) % [place] % (Auto) (0.0-15.0) % Eos % (Auto) (0.0-7.0) % Baso % (Auto) (0.0-1.5) % Neut # (Auto) (1.4-5.7) K/uL Lymph # (Auto) (0.6-2.4) K/uL [place] # (Auto) (0.0-0.8) K/uL Eos # (Auto) (0.0-0.7) K/uL Baso # (Auto) (0.0-0.1) K/uL Nucleated RBC % /100WBC Nucleated RBCs # K/uL Sodium (136-145) mmol/L Potassium (3.5-5.1) mmol/L Chloride (98-107) mmol/L Carbon Dioxide (21.0-32.0) mmol/L BUN (7.0-18.0) mg/dL Creatinine (0.6-1.0) mg/dL Est Cr Clr Drug Dosing mL/min Estimated GFR (MDRD) ml/min Glucose (74-106) mg/dL POC Glucose 302 H (60-110) mg/dL Calcium (8.5-10.1) mg/dL Med Orders - Current: Current Medications Albuterol/Ipratropium (Duoneb 3.0-0.5 Mg/3 Ml) 3 ml NEB Q6HRRT PRN PRN Reason: Wheezing Last Admin: 11/09/17 12:07 Dose: 3 ml Hydromorphone HCl (Dilaudid) 2 mg IVPUSH Q3H PRN PRN Reason: pain Last Admin: 11/10/17 02:30 Dose: 2 mg Lactated Ringer's (Ringers, Lactated) 1,000 mls @ 125 mls/hr IV ASDIRECTED [facility] Last Admin: 11/09/17 18:59 Dose: 125 mls/hr Insulin Aspart (Novolog) 0 unit SUBCUT ACBED [facility]; Protocol Last Admin: 11/09/17 21:31 Dose: 5 units Oxycodone/Acetaminophen (Percocet 325-5 Mg) 1 tab PO Q4H PRN PRN Reason: Pain (moderate 4-6) Oxycodone/Acetaminophen (Percocet 325-5 Mg) 2 tab PO Q4H PRN PRN Reason: Pain (moderate 4-6) Last Admin: 11/10/17 08:25 Dose: 2 tab Promethazine HCl (Phenergan) 25 mg IM Q6H PRN PRN Reason: Nausea/Vomiting Last Admin: 11/09/17 18:41 Dose: 25 mg Sodium Chloride (Saline Flush) 10 ml FLUSH ASDIRECTED PRN PRN Reason: Keep Vein Open Sodium Chloride (Saline Flush) 2.5 ml FLUSH ASDIRECTED PRN PRN Reason: Keep Vein Open Discontinued Medications Albuterol (Proventil Hfa) Confirm Administered Dose 6.7 gm INH .STK-MED ONE Stop: 11/09/17 10:05 Albuterol/Ipratropium (Duoneb 3.0-0.5 Mg/3 Ml) 3 ml NEB ONETIME ONE Stop: 11/09/17 08:47 Last Admin: 11/09/17 08:57 Dose: 3 ml Cefazolin Sodium/Dextrose (Ancef) Confirm Administered Dose 2 gm IV .STK-MED ONE Stop: 11/09/17 07:25 Dexamethasone (Dexamethasone) Confirm Administered Dose 20 mg .ROUTE .STK-MED ONE Stop: 11/09/17 07:27 Fentanyl (Sublimaze) Confirm Administered Dose 250 mcg .ROUTE .STK-MED ONE Stop: 11/09/17 07:26 Fentanyl (Sublimaze) 50 mcg IVPUSH Q5M PRN PRN Reason: Pain (moderate 4-6) Stop: 11/09/17 14:00 Fluorescein Sodium (Ak-Fluor) Confirm Administered Dose 5 ml .ROUTE .STK-MED ONE Stop: 11/09/17 10:18 Glycopyrrolate (Robinul) Confirm Administered Dose 0.2 mg .ROUTE .STK-MED ONE Stop: 11/09/17 10:41 Glycopyrrolate (Robinul) Confirm Administered Dose 0.2 mg .ROUTE .STK-MED ONE Stop: 11/09/17 10:42 Hydromorphone HCl (Dilaudid) Confirm Administered Dose 2 mg .ROUTE .STK-MED ONE Stop: 11/09/17 10:55 Cefazolin Sodium/Dextrose 2 gm (/ Premix) 50 mls @ 100 mls/hr IV ONETIME ONE Stop: 11/08/17 09:35 Last Admin: 11/09/17 13:08 Dose: Not Given Lidocaine HCl (Xylocaine-Mpf 1%) Confirm Administered Dose 5 mls @ as directed .ROUTE .STK-MED ONE Stop: 11/09/17 07:27 Acetaminophen 1,000 mg/ Premix 100 mls @ 400 mls/hr IV NOW ONE Stop: 11/09/17 11:48 Last Admin: 11/09/17 11:40 Dose: 400 mls/hr Acetaminophen (Ofirmev) Confirm Administered Dose 100 mls @ as directed IV .STK- MED ONE Stop: 11/09/17 11:37 Ketorolac Tromethamine (Toradol) 30 mg IVPUSH ONETIME ONE Stop: 11/09/17 11:05 Last Admin: 11/09/17 13:08 Dose: Not Given Ketorolac Tromethamine (Toradol) 30 mg IVPUSH Q6H PRN PRN Reason: Pain (severe 7-10) Stop: 11/14/17 11:05 Midazolam HCl (Versed 1 Mg/Ml) Confirm Administered Dose 2 mg .ROUTE .STK-MED ONE Stop: 11/09/17 07:26 Morphine Sulfate (Morphine) 4 mg IVPUSH Q2H PRN PRN Reason: Pain (severe 7-10) Neostigmine Methylsulfate (Neostigmine) Confirm Administered Dose 5 mg .ROUTE .STK-MED ONE Stop: 11/09/17 10:41 Ondansetron HCl (Zofran) Confirm Administered Dose 4 mg .ROUTE .STK-MED ONE Stop: 11/09/17 07:27 Ondansetron HCl (Zofran) 4 mg IVPUSH Q6H PRN PRN Reason: Nausea/Vomiting Propofol (Diprivan 20 Ml) Confirm Administered Dose 200 mg .ROUTE .STK-MED ONE Stop: 11/09/17 07:26 Rocuronium [place] (Zemuron) Confirm Administered Dose 100 mg .ROUTE .STK-MED ONE Stop: 11/09/17 07:28 Succinylcholine Chloride (Quelicin) Confirm Administered Dose 200 mg .ROUTE .STK -MED ONE Stop: 11/09/17 07:28 - Exam Wound/Incisions: Healing Well General: Alert, Oriented HEENT: Pupils Equal Neck: Supple Lungs: Clear to Auscultation, Normal Respiratory Effort Cardiovascular: Regular Rate, Regular Rhythm GI/Abdominal Exam: Normal Bowel Sounds, Soft, Non-Tender, No Organomegaly, No Distention, No Abnormal Bruit, No Mass, Pelvis Stable Extremities: Normal Inspection, Normal Range of Motion, Non-Tender, No Pedal Edema, Normal Capillary Refill Skin: Warm, Dry, Intact Neurological: No New Focal Deficit Psy/Mental Status: Alert, Normal Affect, Normal Mood - Problem List Review Problem List Initiated/Reviewed/Updated: Yes - My Orders Last 24 Hours: Active Orders 24 hr Category Date Time Status Patient Status [ADT] Routine ADT 11/09/17 11:05 Active Blood Glucose Check, Bedside [RC] QID Care 11/09/17 17:30 Active Communication Order [RC] ROUTINE Care 11/09/17 21:25 Active Notify Provider Vital Signs [RC] ASDIRECTED Care 11/09/17 11:05 Active Oxygen Therapy [RC] ASDIRECTED Care 11/09/17 11:05 Active RT Aerosol Therapy [RC] ASDIRECTED Care 11/09/17 08:46 Active RT Incentive Spirometry [RC] Q2HWA Care 11/09/17 11:05 Active Up With Assistance [RC] PER UNIT ROUTINE Care 11/09/17 11:05 Active Up ad Emily [RC] PER UNIT ROUTINE Care 11/09/17 11:05 Active Vital Signs [RC] PER UNIT ROUTINE Care 11/09/17 11:05 Active Regular Diet [DIET] Diet 11/09/17 Dinner Active Acetaminophen/oxyCODONE [Percocet 325-5 MG] Med 11/09/17 11:04 Active 1 tab PO Q4H PRN Acetaminophen/oxyCODONE [Percocet 325-5 MG] Med 11/09/17 11:04 Active 2 tab PO Q4H PRN Albuterol/Ipratropium [DuoNeb 3.0-0.5 MG/3 ML] Med 11/09/17 11:55 Active 3 ml NEB Q6HRRT PRN HYDROmorphone [Dilaudid] Med 11/09/17 16:22 Active 2 mg IVPUSH Q3H PRN Insulin Aspart [NovoLOG] Med 11/09/17 17:00 Active See Protocol SUBCUT ACBED Promethazine [Phenergan] Med 11/09/17 11:04 Active 25 mg IM Q6H PRN Peripheral IV Discontinue [OM.PC] Routine Oth 11/09/17 11:05 Ordered Sequential Compression Device [OM.PC] Per Unit Routine Oth 11/09/17 11:05 Ordered Resuscitation Status Routine Resus Stat 11/09/17 11:04 Ordered Medication Orders Albuterol/Ipratropium (Duoneb 3.0-0.5 Mg/3 Ml) 3 ml NEB Q6HRRT PRN PRN Reason: Wheezing Last Admin: 11/09/17 12:07 Dose: 3 ml Hydromorphone HCl (Dilaudid) 2 mg IVPUSH Q3H PRN PRN Reason: pain Last Admin: 11/10/17 02:30 Dose: 2 mg Admin: 11/09/17 21:17 Dose: 2 mg Admin: 11/09/17 16:51 Dose: 2 mg Lactated Ringer's (Ringers, Lactated) 1,000 mls @ 125 mls/hr IV ASDIRECTED [facility] Last Admin: 11/09/17 18:59 Dose: 125 mls/hr Infusion: 11/09/17 16:38 Dose: 125 mls/hr Admin: 11/09/17 08:38 Dose: 125 mls/hr Insulin Aspart (Novolog) 0 unit SUBCUT ACBED [facility]; Protocol Last Admin: 11/09/17 21:31 Dose: 5 units Admin: 11/09/17 16:55 Dose: 4 units Oxycodone/Acetaminophen (Percocet 325-5 Mg) 1 tab PO Q4H PRN PRN Reason: Pain (moderate 4-6) Oxycodone/Acetaminophen (Percocet 325-5 Mg) 2 tab PO Q4H PRN PRN Reason: Pain (moderate 4-6) Last Admin: 11/10/17 08:25 Dose: 2 tab Admin: 11/09/17 19:43 Dose: 2 tab Admin: 11/09/17 13:05 Dose: 2 tab Promethazine HCl (Phenergan) 25 mg IM Q6H PRN PRN Reason: Nausea/Vomiting Last Admin: 11/09/17 18:41 Dose: 25 mg Admin: 11/09/17 12:25 Dose: 25 mg Sodium Chloride (Saline Flush) 10 ml FLUSH ASDIRECTED PRN PRN Reason: Keep Vein Open Sodium Chloride (Saline Flush) 2.5 ml FLUSH ASDIRECTED PRN PRN Reason: Keep Vein Open - Assessment Assessment (Free Text/Narrative):: Status post vaginal hysterectomy postoperative day #1 the patient is doing well no vaginal bleeding on regular diet she is voiding without any problem - Plan Plan (Free Text/Narrative):: The patient will be discharged today she was given Percocet 7.5/325 for postoperative pain the postvasectomy instruction is given to the patient. She is to come to the office 1 week of day of her discharge from a postoperative checkup
== END 2017-11-10 09:45 | disposition home or self-care (01) ==
LOC: MW.SDS 07:31 → MW.MS 11:05 → MW.SDS 11-10 09:45
PROVIDERS: ATTEND Obstetrics & Gynecology
DX: N92.1 Excessive and frequent menstruation with irregular cycle (principal); N72 Inflammatory disease of cervix uteri; D50.9 Iron deficiency anemia, unspecified; E11.65 Type 2 diabetes mellitus with hyperglycemia; I10 Essential (primary) hypertension; J44.9 Chronic obstructive pulmonary disease, unspecified; E66.9 Obesity, unspecified; Z68.34 Body mass index [BMI] 34.0-34.9, adult; E78.5 Hyperlipidemia, unspecified; K21.9 Gastro-esophageal reflux disease without esophagitis; M19.071 Primary osteoarthritis, right ankle and foot; F41.9 Anxiety disorder, unspecified; Z87.891 Personal history of nicotine dependence; Z79.01 Long term (current) use of anticoagulants; Z79.82 Long term (current) use of aspirin; Z79.4 Long term (current) use of insulin; Z88.1 Allergy status to other antibiotic agents; Z79.899 Other long term (current) drug therapy; Z88.5 Allergy status to narcotic agent; Z88.8 Allergy status to other drugs, medicaments and biological substances
CPT/HCPCS: 36415; 58260; 80048; 82962; 84703; 85025; 85027; 85610; 85730; 86850; 86900; 86901; 94640; A9270; J0131; J0330; J0690; J1100; J1170; J1815; J2250; J2550; J2704; J3010; J3490; J7120; 88307; J2405; J7620-GY

== ENCOUNTER 2018-04-09 11:10 | Emergency (ER) | payer MEDICAID ==
[2018-04-09] MEDS ORDERED: Sodium Chloride 0.9% 10 ML Syringe FLUSH PRN (11:33)
[2018-04-09] MEDS ORDERED: Sodium Chloride 0.9% 2.5 ML Syringe FLUSH PRN (11:33)
--- NOTE | 2018-04-09 11:40 | EDM.PDOC ---
ED HPI GENERAL MEDICAL PROBLEM - General Chief Complaint: Chest Pain Stated Complaint: flu Time Seen by Provider: 04/09/18 11:39 Source of Information: Reports: Patient History Limitations: Reports: No Limitations - History of Present Illness INITIAL COMMENTS - FREE TEXT/NARRATIVE: HISTORY AND PHYSICAL: History of present illness: Patient is a 43-year-old female presents to the ED with multiple complaints. She states she's had fevers, cough, chest tightness, nausea, vomiting x 1 month. She states she has had temps from 99-102F on and off. She had a few episodes of vomiting yesterday states she has reflux so not sure if it was due to this. She has had some mild abdominal pain on and off. She denies shortness of breath. Has had an ND in the past with stenting states chest tightness does not feel like a heart attack. She states since yesterday she has had pain in her left leg. 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 Past medical history of CAD with stenting, hypertension, hyperlipidemia, COPD, diabetes, PAD of left lower extremity. Review of systems: As per history of present illness and below otherwise all systems reviewed and negative. Past medical history: As per history of present illness and as reviewed below otherwise noncontributory. Surgical history: As per history of present illness and as reviewed below otherwise noncontributory. Social history: No reported history of drug or alcohol abuse. Family history: As per history of present illness and as reviewed below otherwise noncontributory. Physical exam: General: Patient sitting comfortably in no acute distress and nontoxic appearing HEENT: Atraumatic, normocephalic, pupils reactive, negative for conjunctival pallor or scleral icterus, mucous membranes moist, throat clear, neck supple, nontender, trachea midline. No meningeal signs. Lungs: Clear to auscultation, breath sounds equal bilaterally, chest nontender. Heart: S1S2, regular, negative for clicks, rubs, or overt murmur. Abdomen: Soft, nondistended, nontender. Negative for masses or hepatosplenomegaly. Negative for costovertebral tenderness. Pelvis: Stable nontender. Genitourinary: Deferred. Rectal: Deferred. Extremities: No swelling or erythema of left extremity. Popliteal and dorsal pedis pulse 2+, capillary refill <2 seconds. Atraumatic, negative for cords or calf pain. Neurovascular unremarkable. Neuro: Awake, alert, oriented. Cranial nerves II through XII unremarkable. Cerebellum unremarkable. Motor and sensory unremarkable throughout. Exam nonfocal. Notes: Patient was scheduled a follow up appointment in clinic with [facility]RANGER ASSEMBLER here on . Diagnostics: CBC, CMP, troponin, EKG, CXR, venous doppler US, influenza, UA Therapeutics: 1L Normal Saline IV 4mg Zofran IV Prescriptions: None Impression: Medical screening exam Plan: 1. Follow up with primary care provider at schedule appointment 2. Return to ED as needed as discussed Definitive disposition and diagnosis as appropriate pending reevaluation and review of above. chest Pain Score (Numeric/FACES): 6 - Related Data Allergies Allergy/AdvReac Type Severity Reaction Status Date / Time prednisone Allergy Mild Nausea Verified 01/02/18 21:20 doxycycline Allergy Hives Verified 01/02/18 21:20 morphine Allergy Itching Verified 01/02/18 21:20 Home Meds: Home Meds Aspirin [Adeel Chewable Aspirin] 81 mg PO DAILY 07/26/14 [History] Nitroglycerin [Nitrostat] 1 tab SL ASDIRECTED PRN 03/04/15 [History] Apixaban [Eliquis] 5 mg PO BID 01/21/17 [History] Gabapentin [Neurontin] 600 mg PO TID 01/21/17 [History] Insulin Detemir [Levemir] 75 units SQ BEDTIME 01/21/17 [History] Albuterol Sulfate 1 unit NEB ASDIRECTED PRN 07/18/17 [History] Diltiazem HCl [Dilt-Xr] 180 mg PO DAILY 07/18/17 [History] Fenofibrate Nanocrystallized [Fenofibrate] 145 mg PO DAILY 07/18/17 [History] Insulin Aspart [NovoLOG] 1 injection SUBCUT ASDIRECTED 07/18/17 [History] Lisinopril 5 mg PO DAILY 07/18/17 [History] Magnesium Oxide [Magnesium] 400 mg PO DAILY 07/18/17 [History] Metoprolol Succinate 25 mg PO DAILY 07/18/17 [History] atorvaSTATin Calcium [Atorvastatin Calcium] 40 mg PO BEDTIME 07/18/17 [History] traMADol [Ultram] 50 mg PO BID PRN 07/18/17 [History] Ferrous Sulfate 325 mg PO WITHBREAKFAST #30 tablet 09/07/17 [Rx] Albuterol Sulfate [Proair Hfa] 2 puff INH QID PRN 11/07/17 [History] Cyanocobalamin (Vitamin B12) [Vitamin B12] 1,000 mcg PO DAILY 11/07/17 [History] Isosorbide Mononitrate [Isosorbide Mononitrate ER] 30 mg PO DAILY 11/07/17 [ History] Omeprazole 20 mg PO DAILY 11/07/17 [History] Oxymetazoline [Afrin Original 0.05% Nasal [place]] 1 spray NASBOTH ASDIRECTED [History] Ciprofloxacin HCl [Cipro] 500 mg PO BID 7 Days #14 tablet 12/17/17 [Rx] Ciprofloxacin HCl [Cipro] 500 mg PO BID 01/02/18 [History] Past Medical History HEENT History: Reports: Impaired Vision Other HEENT History: wears glasses, ear infection Cardiovascular History: Reports: Angina, High Cholesterol, Hypertension, ND Other Cardiovascular History: hx of ND with cardiac stenting 1 year ago Respiratory History: Reports: Asthma, Bronchitis, Recurrent, COPD, Pneumonia, Recurrent Other Respiratory History: Tobacco dependence, COPD with Nebulizer treatments and inhaler, Hx of bronchitis annd pneumonia Gastrointestinal History: Reports: GERD, Hiatal Hernia Other Gastrointestinal History: abd pain Genitourinary History: Reports: None CHIEF ENGINEER PRODUCTION History: Reports: Other CHIEF ENGINEER PRODUCTION History: Cyst in ovaries Musculoskeletal History: Reports: Arthritis Other Musculoskeletal History: right foot and ankle. R leg amputation Neurological History: Reports: Other (See Below) Other Neuro History: hx: Headaches Psychiatric History: Reports: None Endocrine/Metabolic History: Reports: Diabetes, Type II, Obesity/BMI 30+ Hematologic History: Reports: Anemia Immunologic History: Reports: None Oncologic (Cancer) History: Reports: None Dermatologic History: Reports: None, Urticaria Other Dermatologic History: current rash on left arm - Infectious Disease History Infectious Disease History: Reports: None - Past Surgical History HEENT Surgical History: Reports: None Other HEENT Surgeries/Procedures: tube placement GI Surgical History: Reports: Cholecystectomy Female Surgical History: Reports: None Endocrine Surgical History: Reports: None Musculoskeletal Surgical History: Reports: None Other Musculoskeletal Surgeries/Procedures:: R leg amputation Oncologic Surgical History: Reports: None Social & Family History - Family History Family Medical History: Noncontributory HEENT: Reports: Cataract, Impaired Vision, Otitis Media, Sinusitis Cardiac: Reports: High Cholesterol, Hypertension, ND Other Cardiac Family History: heart problems maternal and paternal sides Respiratory: Reports: Asthma, COPD, Sleep Apnea GI: Reports: None Musculoskeletal: Reports: Arthritis, Gout Neurological: Reports: CVA Psychiatric: Reports: None Endocrine/Metabolic: Reports: Diabetes, Type I, Diabetes, type II, Hyperthyroidism, Obesity/MBI 30+ Hematologic: Reports: Anemia Oncologic: Reports: Lung - Tobacco Use Smoking Status *Q: Never Smoker - Caffeine Use Caffeine Use: Reports: None Caffeine Use Comment: "sometimes" - Recreational Drug Use Recreational Drug Use: No ED ROS GENERAL - Review of Systems Review Of Systems: ROS reveals no pertinent complaints other than HPI. ED EXAM, GENERAL - Physical Exam Exam: See Below (see dictation) Course - Vital Signs Last Recorded V/S: Last Vital Signs Temp 97.5 F 04/09/18 11:29 Pulse 85 04/09/18 13:48 Resp 18 04/09/18 13:48 BP 107/64 04/09/18 13:48 Pulse Ox 98 04/09/18 13:48 - Orders/Labs/Meds Orders: Active Orders 24 hr Category Date Time Status EKG Documentation Completion [RC] STAT Care 04/09/18 11:34 Active CULTURE URINE [RM] Stat Lab 04/09/18 13:43 Received Sodium Chloride 0.9% [Saline Flush] Med 04/09/18 11:33 Active 10 ml FLUSH ASDIRECTED PRN Sodium Chloride 0.9% [Saline Flush] Med 04/09/18 11:33 Active 2.5 ml FLUSH ASDIRECTED PRN Saline Lock Insert [OM.PC] Stat Oth 04/09/18 11:33 Ordered Medication Orders Sodium Chloride (Saline Flush) 10 ml FLUSH ASDIRECTED PRN PRN Reason: Keep Vein Open Last Admin: 04/09/18 13:15 Dose: 10 ml Sodium Chloride (Saline Flush) 2.5 ml FLUSH ASDIRECTED PRN PRN Reason: Keep Vein Open Last Admin: 04/09/18 13:15 Dose: 2.5 ml Labs: Laboratory Tests 04/09/18 04/09/18 04/09/18 Range/Units 11:45 11:45 13:43 WBC 7.72 (4.0-11.0) K/uL RBC 5.35 (4.30-5.90) M/uL Hgb 14.2 (12.0-16.0) g/dL Hct 42.5 (36.0-46.0) % MCV 79.4 L (80.0-98.0) fL MCH 26.5 L (27.0-32.0) pg MCHC 33.4 (31.0-37.0) g/dL RDW Std Deviation 45.8 (28.0-62.0) fl RDW Coeff of Dmeond 16 H (11.0-15.0) % Plt Count 324 (150-400) K/uL MPV 10.50 (7.40-12.00) fL Neut % (Auto) 60.0 (48.0-80.0) % Lymph % (Auto) 30.8 (16.0-40.0) % [place] % (Auto) 7.9 (0.0-15.0) % Eos % (Auto) 0.9 (0.0-7.0) % Baso % (Auto) 0.4 (0.0-1.5) % Neut # (Auto) 4.6 (1.4-5.7) K/uL Lymph # (Auto) 2.4 (0.6-2.4) K/uL [place] # (Auto) 0.6 (0.0-0.8) K/uL Eos # (Auto) 0.1 (0.0-0.7) K/uL Baso # (Auto) 0.0 (0.0-0.1) K/uL Nucleated RBC % 0.0 /100WBC Nucleated RBCs # 0 K/uL Sodium 140 (136-145) mmol/L Potassium 3.9 (3.5-5.1) mmol/L Chloride 104 (98-107) mmol/L Carbon Dioxide 25.1 (21.0-32.0) mmol/L BUN 12 (7.0-18.0) mg/dL Creatinine 0.8 (0.6-1.0) mg/dL Est Cr Clr Drug Dosing 77.49 mL/min Estimated GFR (MDRD) > 60.0 ml/min Glucose 122 H (74-106) mg/dL Calcium 9.3 (8.5-10.1) mg/dL Total Bilirubin 0.2 (0.2-1.0) mg/dL AST 24 (15-37) IU/L ALT 35 (14-63) IU/L Alkaline Phosphatase 54 (46-116) U/L Troponin I < 0.050 (0.000-0.056) ng/mL Total Protein 7.6 (6.4-8.2) g/dL Albumin 3.6 (3.4-5.0) g/dL Globulin 4.0 (2.6-4.0) g/dL Albumin/Globulin Ratio 0.9 (0.9-1.6) Urine Color YELLOW Urine Appearance CLEAR Urine pH 6.0 (5.0-8.0) Ur Specific [place] 1.020 (1.001-1.035) Urine Protein NEGATIVE (NEGATIVE) mg/dL Urine Glucose (UA) NEGATIVE (NEGATIVE) mg/dL Urine Ketones NEGATIVE (NEGATIVE) mg/dL Urine Occult Blood NEGATIVE (NEGATIVE) Urine Nitrite NEGATIVE (NEGATIVE) Urine Bilirubin NEGATIVE (NEGATIVE) Urine Urobilinogen 0.2 (<2.0) EU/dL Ur Leukocyte Esterase SMALL H (NEGATIVE) Urine RBC 0-1 (0-2/HPF) Urine WBC 1-2 (0-5/HPF) Ur Epithelial Cells RARE (NONE-FEW) Urine Bacteria RARE (NEGATIVE) Meds: Medications Generic Name Dose Route Start Last Admin Trade Name Freq PRN Reason Stop Dose Admin Sodium Chloride 10 ml 04/09/18 11:33 04/09/18 13:15 Saline Flush FLUSH 10 ml ASDIRECTED PRN Administration Keep Vein Open Sodium Chloride 2.5 ml 04/09/18 11:33 04/09/18 13:15 Saline Flush FLUSH 2.5 ml ASDIRECTED PRN Administration Keep Vein Open Discontinued Medications Generic Name Dose Route Start Last Admin Trade Name Freq PRN Reason Stop Dose Admin Ondansetron HCl 4 mg 04/09/18 13:41 04/09/18 13:47 Zofran IVPUSH 04/09/18 13:42 4 mg ONETIME ONE Administration Departure - Departure Time of Disposition: 14:24 Disposition: Home, Self-Care 01 Condition: Good Clinical Impression: Encounter for medical screening examination Referrals: Settelmeyer,Margy A, [facility]RANGER ASSEMBLER [Nurse Practitioner] - 04/12/18 4:15 pm Forms: ED Department Discharge Additional Instructions: The following information is given to patients seen in the emergency department who are being discharged to home. This information is to outline your options for follow-up care. We provide all patients seen in our emergency department with a follow-up referral. The need for follow-up, as well as the timing and circumstances, are variable depending upon the specifics of your emergency department visit. If you don't have a primary care physician on staff, we will provide you with a referral. We always advise you to contact your personal physician following an emergency department visit to inform them of the circumstance of the visit and for follow-up with them and/or the need for any referrals to a consulting specialist. The emergency department will also refer you to a specialist when appropriate. This referral assures that you have the opportunity for follow-up care with a specialist. All of these measure are taken in an effort to provide you with optimal care, which includes your follow-up. Under all circumstances we always encourage you to contact your private physician who remains a resource for coordinating your care. When calling for follow-up care, please make the office aware that this follow-up is from your recent emergency room visit. If for any reason you are refused follow-up, please contact the [facility] Emergency Department at and asked to speak to the emergency department charge nurse. [facility] Primary Care [address] [place] [id number] 1. Follow up with primary care provider at schedule appointment 2. Return to ED as needed as discussed - My Orders Last 24 Hours: My Active Orders 04/09/18 11:33 Sodium Chloride 0.9% [Saline Flush] 10 ml FLUSH ASDIRECTED PRN Sodium Chloride 0.9% [Saline Flush] 2.5 ml FLUSH ASDIRECTED PRN Saline Lock Insert [OM.PC] Stat 04/09/18 11:34 EKG Documentation Completion [RC] STAT 04/09/18 13:43 CULTURE URINE [RM] Stat - Assessment/Plan Last 24 Hours: My Active Orders 04/09/18 11:33 Sodium Chloride 0.9% [Saline Flush] 10 ml FLUSH ASDIRECTED PRN Sodium Chloride 0.9% [Saline Flush] 2.5 ml FLUSH ASDIRECTED PRN Saline Lock Insert [OM.PC] Stat 04/09/18 11:34 EKG Documentation Completion [RC] STAT 04/09/18 13:43 CULTURE URINE [RM] Stat
[2018-04-09 12:26] LABS: CHLORIDE,CL 104 mmol/L (98-107); SODIUM,NA 140 mmol/L (136-145)
--- NOTE | 2018-04-09 12:47 | CR ---
EXAMINATION: Portable chest radiograph. HISTORY: Shortness of breath. FINDINGS: The trachea is midline. The cardiomediastinal silhouette is within normal limits. No pulmonary infiltrates, effusions or pneumothorax. Osseous structures appear unremarkable. IMPRESSION: No acute cardiopulmonary process.
--- NOTE | 2018-04-09 12:49 | US ---
ULTRASOUND EXAMINATION OF the left lower extremity WITH DOPPLER HISTORY: Pain FINDINGS: Examination of the left leg was performed from the groin to the calf region. All visualized segments including common femoral, proximal greater saphenous, superficial femoral, popliteal and calf veins appear patent with good compressibility and augmentation. There is no evidence of deep vein thrombosis. 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 IMPRESSION: No evidence of a DVT.
[2018-04-09] MEDS ORDERED: Ondansetron 4 MG/2 ML SDV IVPUSH ONE (13:41)
[2018-04-09 14:51] VITALS: BP 112/67
== END 2018-04-09 14:45 | disposition home or self-care (01) ==
LOC: MW.ED 11:10
DX: R11.2 Nausea with vomiting, unspecified (principal); R50.9 Fever, unspecified; R05 Cough; R07.9 Chest pain, unspecified; E11.9 Type 2 diabetes mellitus without complications; I10 Essential (primary) hypertension; J44.9 Chronic obstructive pulmonary disease, unspecified; Z88.8 Allergy status to other drugs, medicaments and biological substances; Z88.5 Allergy status to narcotic agent; Z79.899 Other long term (current) drug therapy
CPT/HCPCS: 36415; 71045; 80053; 81001; 84484; 85025; 87086; 87088; 87186; 87804; 93005; 93971; 96374; 99285; J2405; 99283

== ENCOUNTER 2018-06-20 06:22 | Day surgery (SDC) | payer MEDICAID ==
--- NOTE | 2018-06-20 07:19 | PCM.PREANE ---
Preanesthetic Assessment - Anesthesia/Transfusion/Family Hx Anesthesia History: Prior Anesthesia Without Reaction Other Type of Anesthesia Reaction Comment: Deneis any known problem with anesthesia in past Family History of Anesthesia Reaction: No Transfusion History: Prior Transfusion Without Reaction Intubation History: Unknown - Review of Systems General: No Symptoms Pulmonary: No Symptoms Cardiovascular: No Symptoms Gastrointestinal: No Symptoms Neurological: Dizziness, Other (falls) Other: Reports: None - Physical Assessment NPO Status Date: 06/19/18 Height: 5 ft 5 in Weight: 100.244 kg ASA Class: 3 Mental Status: Alert & Oriented x3 Airway Class: Mallampati = 2 Dentition: Reports: Normal Dentition ROM/Head Extension: Full Lungs: Clear to Auscultation, Normal Respiratory Effort Cardiovascular: Regular Rate, Regular Rhythm - Allergies Allergies/Adverse Reactions: Allergies Allergy/AdvReac Type Severity Reaction Status Date / Time prednisone Allergy Mild Nausea Verified 06/19/18 14:52 doxycycline Allergy Hives Verified 06/19/18 14:52 morphine Allergy Itching Verified 06/19/18 14:52 - Blood Blood Available: No - Anesthesia Plan Pre-Op Medication Ordered: None - Acknowledgements Anesthesia Type Planned: MAC Pt an Appropriate Candidate for the Planned Anesthesia: Yes Alternatives and Risks of Anesthesia Discussed w Pt/Guardian: Yes Pt/Guardian Understands and Agrees with Anesthesia Plan: Yes Additional Comments: PMH: cad with stent, hx DVTs, on eliquis and aspirin, both continued until yesterday,DM2- on insulin, glucose on arrival =220, gerd, htn, chronic pain syndromes, morbid obesity, s/p hyst, s/p BKA PLAN: mac with brief LOC during injection of local over median nerve PreAnesthesia Questionnaire HEENT History: Reports: Glaucoma, Impaired Vision, Other (See Below) Other HEENT History: needs glasses but doesnt wear them Cardiovascular History: Reports: Angina, High Cholesterol, Hypertension, [place] Other Cardiovascular History: hx of [place] with cardiac stenting Respiratory History: Reports: Asthma, Bronchitis, Recurrent, COPD, Pneumonia, Recurrent Other Respiratory History: COPD with Nebulizer treatments and inhaler, Hx of bronchitis annd pneumonia Gastrointestinal History: Reports: GERD, Hiatal Hernia Genitourinary History: Reports: None MEAT APPRENTICE 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: Musculoskeletal History: Reports: Arthritis Other Musculoskeletal History: rt leg below the knee amputation Neurological History: Reports: Headaches, Chronic, Neuropathy, Diabetic, Other ( See Below) Other Neuro History: hx: Headaches Psychiatric History: Reports: None Endocrine/Metabolic History: Reports: Diabetes, Type II, Obesity/BMI 30+ Hematologic History: Reports: Anemia, Blood Transfusion(s) Immunologic History: Reports: None Oncologic (Cancer) History: Reports: None Dermatologic History: Reports: None - Infectious Disease History Infectious Disease History: Reports: None - Past Surgical History Head Surgeries/Procedures: Reports: None HEENT Surgical History: Reports: Myringotomy w Tube(s) Other HEENT Surgeries/Procedures: tube placement Cardiovascular Surgical History: Reports: Coronary Artery Stent Other Cardiovascular Surgeries/Procedures: 2014 Respiratory Surgical History: Reports: None GI Surgical History: Reports: Cholecystectomy Female Surgical History: Reports: Hysterectomy Endocrine Surgical History: Reports: None Neurological Surgical History: Reports: None Musculoskeletal Surgical History: Reports: Amputation Other Musculoskeletal Surgeries/Procedures:: R below the knee amputation Oncologic Surgical History: Reports: None Dermatological Surgical History: Reports: None - SUBSTANCE USE Smoking Status *Q: Former Smoker Recreational Drug Use History: No - HOME MEDS Home Medications: Home Meds Aspirin [Adeel Chewable Aspirin] 81 mg PO DAILY 07/26/14 [History] Nitroglycerin [Nitrostat] 1 tab SL ASDIRECTED PRN 03/04/15 [History] Apixaban [Eliquis] 5 mg PO BID 01/21/17 [History] Gabapentin [Neurontin] 600 mg PO TID 01/21/17 [History] Insulin Detemir [Levemir] 75 units SQ BID 01/21/17 [History] Albuterol Sulfate 1 unit NEB ASDIRECTED PRN 07/18/17 [History] Diltiazem HCl [Dilt-Xr] 180 mg PO DAILY 07/18/17 [History] Fenofibrate Nanocrystallized [Fenofibrate] 145 mg PO DAILY 07/18/17 [History] Lisinopril 5 mg PO DAILY 07/18/17 [History] Magnesium Oxide [Magnesium] 400 mg PO DAILY 07/18/17 [History] Metoprolol Succinate 25 mg PO DAILY 07/18/17 [History] atorvaSTATin Calcium [Atorvastatin Calcium] 40 mg PO BEDTIME 07/18/17 [History] traMADol [Ultram] 2 tab PO TID PRN 07/18/17 [History] Albuterol Sulfate [Proair Hfa] 2 puff INH QID PRN 11/07/17 [History] Isosorbide Mononitrate [Isosorbide Mononitrate ER] 30 mg PO DAILY 11/07/17 [ History] Omeprazole 20 mg PO DAILY 11/07/17 [History] Oxymetazoline [Afrin Original 0.05% Nasal [place]] 1 spray NASBOTH ASDIRECTED [History] Insulin Aspart [NovoLOG] 250 units SUBCUT ASDIRECTED 06/19/18 [History] Liraglutide [Victoza] 1.8 ng SUBCUT DAILY 06/19/18 [History] Sucralfate 1 gm PO QID 06/19/18 [History] - CURRENT (IN HOUSE) MEDS Current Meds: Current Medications Hydrocodone Bitart/Acetaminophen ([place] 325-5 Mg) 1 tab PO Q4H PRN PRN Reason: Pain Bupivacaine HCl/Epinephrine Bitart ([place] 0.25%/Epinephrine 1:200,000) 10 ml INJECT ONETIME ONE Stop: 06/20/18 08:01 Cefazolin Sodium/Dextrose 2 gm (/ Premix) 50 mls @ 100 mls/hr IV ONETIME ONE Stop: 06/20/18 08:29 Lactated Ringer's (Ringers, Lactated) 1,000 mls @ 125 mls/hr IV ASDIRECTED [facility]
[2018-06-20] MEDS ORDERED: Ondansetron 4 MG/2 ML SDV ONE (07:21)
[2018-06-20] MEDS ORDERED: Propofol 200 MG/20 ML SDV ONE (07:22)
[2018-06-20] MEDS ORDERED: fentaNYL 100 MCG/2 ML SDV ONE (07:22)
[2018-06-20] MEDS ORDERED: Midazolam 1 MG/ML 2 ML SDV ONE (07:22)
[2018-06-20] MEDS ORDERED: Bupivacaine 0.25%/EPINEPHrine 1:200,000 10 ML SDV ONE (07:28)
[2018-06-20] MEDS ORDERED: ceFAZolin 1 GM Vial ONE (07:30)
[2018-06-20] MEDS ORDERED: Sodium Chloride 0.9% 20 ML ONE (07:30)
[2018-06-20] MEDS ORDERED: Bupivacaine 0.25%/EPINEPHrine 1:200,000 10 ML SDV INJECT ONE (08:00)
[2018-06-20] MEDS ORDERED: ceFAZolin 2 GM in Premix Bag 1 BAG IV ONE (08:00)
[2018-06-20] MEDS ORDERED: Lactated Ringers 1,000 ML IV SCH (08:00)
[2018-06-20] MEDS ORDERED: Acetaminophen/HYDROcodone 325-5 MG Tab PO PRN (08:00)
--- NOTE | 2018-06-20 09:25 | PCM48HPAN ---
Post Anesthesia Note - EVALUATION WITHIN 48HRS OF ANESTHETIC Vital Signs in Normal Range: Yes Patient Participated in Evaluation: Yes Respiratory Function Stable: Yes Airway Patent: Yes Cardiovascular Function Stable: Yes Hydration Status Stable: Yes Pain Control Satisfactory: Yes Nausea and Vomiting Control Satisfactory: Yes Mental Status Recovered: Yes Resp Rate: 16 - COMMENTS/OBSERVATIONS Free Text/Narrative:: direct back to phase 2
[2018-06-20 11:59] VITALS: BP 116/52
--- NOTE | 2018-06-21 10:09 | PCM.OPNOTE ---
- General Post-Op/Procedure Note Date of Surgery/Procedure: 06/20/18 Operative Procedure(s): left carpal tunnel release Pre Op Diagnosis: left carpal tunnel Post-Op Diagnosis: Same Anesthesia Technique: Local, MAC Primary Surgeon: Dior Guzmán Test Lab Technician: Dinorah Ordoñez Complications: None Condition: Good
--- NOTE | 2018-06-21 18:26 | OR ---
SURGEON: CHATO ALONZO MD DATE OF PROCEDURE: 06/20/2018 PREOPERATIVE DIAGNOSIS: Left carpal tunnel syndrome. POST PROCEDURE DIAGNOSIS: Left carpal tunnel syndrome. PROCEDURE: Left carpal tunnel release. FEED CRUSHER: JEANE Robles. ANESTHESIA: Local MAC. INDICATIONS: Ms. Resendiz is a 43-year-old female with bilateral carpal tunnel. She would like to proceed with a left first and then the right. Risks and benefits of the surgery were discussed with her. She has failed conservative management and would like to proceed. Risks were including, but not limited to, bleeding, infection, damage to underlying or overlying structures, possible need for future interventions, possible scarring. PROCEDURE IN DETAIL: After informed consent was obtained and placed on the chart, the patient was brought to the operating theater and laid in supine position. After adequate local MAC anesthesia was obtained, the area was prepped and draped, and time-out was completed to confirm side and site. The arm was exsanguinated and the tourniquet was insufflated to 200 mmHg. Dissection was then carried through the transverse carpal ligament using a #15 blade first until breach of the ligament, and then distally and proximally for complete release under direct visualization. Once adequately released, the wound was copiously irrigated and closed using 5-0 nylon stitch in a horizontal mattress fashion. The wound was dressed with Xeroform, fluffs, and a Kerlix gauze dressing and a 2-inch Vega wrap. The patient tolerated this well. All counts needles were correct at the end of the case. FOLLOWUP INSTRUCTIONS: The patient was given a prescription for pain control and we will see us in 10 to 14 days, sooner if any problems, questions, or concerns. HEGGTNAVDEEP / [facility] /[id number]
== END 2018-06-20 09:39 | disposition home or self-care (01) ==
LOC: MW.SDS 06:22
PROVIDERS: ATTEND Plastic Surgery
DX: G56.03 Carpal tunnel syndrome, bilateral upper limbs (principal); J44.9 Chronic obstructive pulmonary disease, unspecified; E11.9 Type 2 diabetes mellitus without complications; E78.5 Hyperlipidemia, unspecified; I10 Essential (primary) hypertension; E66.9 Obesity, unspecified; Z68.36 Body mass index [BMI] 36.0-36.9, adult; Z87.891 Personal history of nicotine dependence; Z79.84 Long term (current) use of oral hypoglycemic drugs; Z79.01 Long term (current) use of anticoagulants; Z79.899 Other long term (current) drug therapy; Z88.1 Allergy status to other antibiotic agents; Z88.5 Allergy status to narcotic agent
CPT/HCPCS: 64721; 82962; J0690; J2250; J2405; J2704; J3010; J3490; J7120

== ENCOUNTER 2018-07-07 17:24 | Emergency (ER) | payer MEDICAID ==
[2018-07-07] MEDS ORDERED: Aspirin 81 MG Tab.Chew PO ONE (17:36)
[2018-07-07 18:16] LABS: CHLORIDE,CL 104 mmol/L (98-107); SODIUM,NA 138 mmol/L (136-145)
[2018-07-07] MEDS ORDERED: Sodium Chloride 0.9% 1,000 ML IV ONE (18:20)
[2018-07-07] MEDS ORDERED: Pantoprazole 40 MG Vial IVPUSH ONE (18:20)
--- NOTE | 2018-07-07 18:23 | EDM.PDOC ---
<Charly Carter - Last Filed: 07/07/18 18:21> ED HPI GENERAL MEDICAL PROBLEM - General Chief Complaint: Chest Pain Stated Complaint: CHEST PAIND Time Seen by Provider: 07/07/18 18:22 Source of Information: Reports: Patient - History of Present Illness INITIAL COMMENTS - FREE TEXT/NARRATIVE: HISTORY AND PHYSICAL: History of present illness: []Short with epigastric pain 5 out of 10 nonradiating not associated with shortness of breath or diaphoresis no radiation arm neck or jaw presents as above symptoms for 24 hours accompanied by dizziness which seems positional and exam Review of systems: As per history of present illness and below otherwise all systems reviewed and negative. Past medical history: As per history of present illness and as reviewed below otherwise noncontributory. Surgical history: As per history of present illness and as reviewed below otherwise noncontributory. Social history: No reported history of drug or alcohol abuse. Family history: As per history of present illness and as reviewed below otherwise noncontributory. Physical exam: HEENT: Atraumatic, normocephalic, pupils reactive, negative for conjunctival pallor or scleral icterus, mucous membranes moist, throat clear, neck supple, nontender, trachea midline. Head-tilt looking up worsens dizziness Lungs: Clear to auscultation, breath sounds equal bilaterally, chest nontender. Heart: S1S2, regular, negative for clicks, rubs, or JVD. Abdomen: Soft, nondistended, nontender. Negative for masses or hepatosplenomegaly. Negative for costovertebral tenderness. Pelvis: Stable nontender. Genitourinary: Deferred. Rectal: Deferred. Extremities: Atraumatic, negative for cords or calf pain. Neurovascular unremarkable. Neuro: Awake, alert, oriented. Cranial nerves II through XII unremarkable. Cerebellum unremarkable. Motor and sensory unremarkable throughout. Exam nonfocal. Diagnostics: [CBC CMP troponin lipase EKG Chest [address] abdomen pelvis with contrast ] Therapeutics: [ normal saline Aspirin 324 mg chewable ] Impression: [] acute pancreatitis positional vertigo Definitive disposition and diagnosis as appropriate pending reevaluation and review of above. chest Pain Score (Numeric/FACES): 7 - Related Data Allergies Allergy/AdvReac Type Severity Reaction Status Date / Time prednisone Allergy Mild Nausea Verified 06/19/18 14:52 cortisone Allergy Cannot Verified 07/07/18 17:38 Remember doxycycline Allergy Hives Verified 06/19/18 14:52 morphine Allergy Itching Verified 06/19/18 14:52 Home Meds: Home Meds Aspirin [Adeel Chewable Aspirin] 81 mg PO DAILY 07/26/14 [History] Nitroglycerin [Nitrostat] 1 tab SL ASDIRECTED PRN 03/04/15 [History] Apixaban [Eliquis] 5 mg PO BID 01/21/17 [History] Gabapentin [Neurontin] 600 mg PO TID 01/21/17 [History] Insulin Detemir [Levemir] 75 units SQ BID 01/21/17 [History] Albuterol Sulfate 1 unit NEB ASDIRECTED PRN 07/18/17 [History] Diltiazem HCl [Dilt-Xr] 180 mg PO DAILY 07/18/17 [History] Fenofibrate Nanocrystallized [Fenofibrate] 145 mg PO DAILY 07/18/17 [History] Lisinopril 5 mg PO DAILY 07/18/17 [History] Magnesium Oxide [Magnesium] 400 mg PO DAILY 07/18/17 [History] Metoprolol Succinate 25 mg PO DAILY 07/18/17 [History] atorvaSTATin Calcium [Atorvastatin Calcium] 40 mg PO BEDTIME 07/18/17 [History] traMADol [Ultram] 2 tab PO TID PRN 07/18/17 [History] Albuterol Sulfate [Proair Hfa] 2 puff INH QID PRN 11/07/17 [History] Isosorbide Mononitrate [Isosorbide Mononitrate ER] 30 mg PO DAILY 11/07/17 [ History] Omeprazole 20 mg PO DAILY 11/07/17 [History] Oxymetazoline [Afrin Original 0.05% Nasal [place]] 1 spray NASBOTH ASDIRECTED [History] Insulin Aspart [NovoLOG] 250 units SUBCUT ASDIRECTED 06/19/18 [History] Liraglutide [Victoza] 1.8 ng SUBCUT DAILY 06/19/18 [History] Sucralfate 1 gm PO QID 06/19/18 [History] Acetaminophen/HYDROcodone [[place] 325-5 MG] 1 tab PO Q4H PRN #30 tablet 06/20/18 [Rx] Past Medical History HEENT History: Reports: Glaucoma, Impaired Vision, Other (See Below) Other HEENT History: needs glasses but doesnt wear them Cardiovascular History: Reports: Angina, High Cholesterol, Hypertension, [place] Other Cardiovascular History: hx of [place] with cardiac stenting Respiratory History: Reports: Asthma, Bronchitis, Recurrent, COPD, Pneumonia, Recurrent Other Respiratory History: COPD with Nebulizer treatments and inhaler, Hx of bronchitis annd pneumonia Gastrointestinal History: Reports: GERD, Hiatal Hernia Genitourinary History: Reports: None 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: Musculoskeletal History: Reports: Arthritis Other Musculoskeletal History: rt leg below the knee amputation Neurological History: Reports: Headaches, Chronic, Neuropathy, Diabetic, Other ( See Below) Other Neuro History: hx: Headaches Psychiatric History: Reports: None Endocrine/Metabolic History: Reports: Diabetes, Type II, Obesity/BMI 30+ Hematologic History: Reports: Anemia, Blood Transfusion(s) Immunologic History: Reports: None Oncologic (Cancer) History: Reports: None Dermatologic History: Reports: None - Infectious Disease History Infectious Disease History: Reports: None - Past Surgical History HEENT Surgical History: Reports: Myringotomy w Tube(s) Other HEENT Surgeries/Procedures: tube placement Cardiovascular Surgical History: Reports: Coronary Artery Stent Other Cardiovascular Surgeries/Procedures: 2014 Respiratory Surgical History: Reports: None GI Surgical History: Reports: Cholecystectomy Female Surgical History: Reports: Hysterectomy Endocrine Surgical History: Reports: None Neurological Surgical History: Reports: None Musculoskeletal Surgical History: Reports: Amputation, Carpal Tunnel Other Musculoskeletal Surgeries/Procedures:: R below the knee amputation Oncologic Surgical History: Reports: None Dermatological Surgical History: Reports: None Social & Family History - Family History Family Medical History: Noncontributory HEENT: Reports: Cataract, Impaired Vision, Otitis Media, Sinusitis Cardiac: Reports: High Cholesterol, Hypertension, [place] Other Cardiac Family History: heart problems maternal and paternal sides Respiratory: Reports: Asthma, COPD, Sleep Apnea GI: Reports: None Musculoskeletal: Reports: Arthritis, Gout Neurological: Reports: CVA Psychiatric: Reports: None Endocrine/Metabolic: Reports: Diabetes, Type I, Diabetes, type II, Hyperthyroidism, Obesity/MBI 30+ Hematologic: Reports: Anemia Oncologic: Reports: Lung - Tobacco Use Smoking Status *Q: Never Smoker - Caffeine Use Caffeine Use: Reports: Soda Caffeine Use Comment: "sometimes" - Recreational Drug Use Recreational Drug Use: No Course - Vital Signs Last Recorded V/S: Last Vital Signs Temp 36.6 C 07/07/18 17:35 Pulse 88 07/07/18 19:35 Resp 18 07/07/18 19:35 BP 126/68 07/07/18 19:35 Pulse Ox 97 07/07/18 19:35 - Orders/Labs/Meds Orders: Active Orders 24 hr Category Date Time Status EKG Documentation Completion [RC] STAT Care 07/07/18 17:37 Active CULTURE URINE [RM] Stat Lab 07/07/18 18:25 Received HYDROmorphone [Dilaudid] Med 07/07/18 18:27 Active 0.5 mg IVPUSH ONETIME PRN Medication Orders Hydromorphone HCl (Dilaudid) 0.5 mg IVPUSH ONETIME PRN PRN Reason: Abdominal Pain Last Admin: 07/07/18 18:49 Dose: 0.5 mg Labs: Laboratory Tests 07/07/18 07/07/18 07/07/18 Range/Units 17:46 17:46 18:25 WBC 6.83 (4.0-11.0) K/uL RBC 4.70 (4.30-5.90) M/uL Hgb 12.5 (12.0-16.0) g/dL Hct 38.9 (36.0-46.0) % MCV 82.8 (80.0-98.0) fL MCH 26.6 L (27.0-32.0) pg MCHC 32.1 (31.0-37.0) g/dL RDW Std Deviation 44.2 (28.0-62.0) fl RDW Coeff of Demond 15 (11.0-15.0) % Plt Count 315 (150-400) K/uL MPV 10.90 (7.40-12.00) fL Neut % (Auto) 56.2 (48.0-80.0) % Lymph % (Auto) 35.6 (16.0-40.0) % [place] % (Auto) 6.9 (0.0-15.0) % Eos % (Auto) 0.9 (0.0-7.0) % Baso % (Auto) 0.4 (0.0-1.5) % Neut # (Auto) 3.8 (1.4-5.7) K/uL Lymph # (Auto) 2.4 (0.6-2.4) K/uL [place] # (Auto) 0.5 (0.0-0.8) K/uL Eos # (Auto) 0.1 (0.0-0.7) K/uL Baso # (Auto) 0.0 (0.0-0.1) K/uL Nucleated RBC % 0.0 /100WBC Nucleated RBCs # 0 K/uL Sodium 138 (136-145) mmol/L Potassium 3.8 (3.5-5.1) mmol/L Chloride 104 (98-107) mmol/L Carbon Dioxide 24.5 (21.0-32.0) mmol/L BUN 12 (7.0-18.0) mg/dL Creatinine 0.9 (0.6-1.0) mg/dL Est Cr Clr Drug Dosing 68.88 mL/min Estimated GFR (MDRD) > 60.0 ml/min Glucose 198 H (74-106) mg/dL Calcium 9.0 (8.5-10.1) mg/dL Total Bilirubin 0.3 (0.2-1.0) mg/dL AST 26 (15-37) IU/L ALT 40 (14-63) IU/L Alkaline Phosphatase 44 L (46-116) U/L Troponin I < 0.050 (0.000-0.056) ng/mL Total Protein 7.1 (6.4-8.2) g/dL Albumin 3.6 (3.4-5.0) g/dL Globulin 3.5 (2.6-4.0) g/dL Albumin/Globulin Ratio 1.0 (0.9-1.6) Lipase 455 H (73-393) U/L Urine Color YELLOW Urine Appearance CLEAR Urine pH 5.5 (5.0-8.0) Ur Specific [place] 1.025 (1.001-1.035) Urine Protein NEGATIVE (NEGATIVE) mg/dL Urine Glucose (UA) NEGATIVE (NEGATIVE) mg/dL Urine Ketones NEGATIVE (NEGATIVE) mg/dL Urine Occult Blood NEGATIVE (NEGATIVE) Urine Nitrite NEGATIVE (NEGATIVE) Urine Bilirubin NEGATIVE (NEGATIVE) Urine Urobilinogen 0.2 (<2.0) EU/dL Ur Leukocyte Esterase TRACE H (NEGATIVE) Urine RBC 0-3 (0-2/HPF) Urine WBC 1-4 (0-5/HPF) Ur Epithelial Cells OCCASIONAL (NONE-FEW) Urine Bacteria FEW (NEGATIVE) Meds: Medications Generic Name Dose Route Start Last Admin Trade Name Freq PRN Reason Stop Dose Admin Hydromorphone HCl 0.5 mg 07/07/18 18:27 07/07/18 18:49 Dilaudid IVPUSH 0.5 mg ONETIME PRN Administration Abdominal Pain Discontinued Medications Generic Name Dose Route Start Last Admin Trade Name Freq PRN Reason Stop Dose Admin Aspirin 324 mg 07/07/18 17:36 07/07/18 17:58 Aspirin PO 07/07/18 17:37 324 mg ONETIME ONE Administration Hydromorphone HCl Confirm 07/07/18 18:39 07/07/18 18:50 Dilaudid Administered 07/07/18 18:40 Not Given Dose 1 mg .ROUTE .STK-MED ONE Sodium Chloride 1,000 mls @ 999 mls/hr 07/07/18 18:20 07/07/18 18:59 Normal Saline IV 07/07/18 19:20 999 mls/hr STAT ONE Administration Iopamidol 100 ml 07/07/18 19:28 07/07/18 19:28 Isovue Multipack-370 (76%) IVPUSH 07/07/18 19:29 100 ml ONETIME STA Administration Pantoprazole Sodium 80 mg 07/07/18 18:20 07/07/18 18:44 Protonix Iv IVPUSH 07/07/18 18:21 80 mg .BOLUS ONE Administration Departure - Departure Disposition: Home, Self-Care 01 Clinical Impression: Abdominal pain, Pancreatitis - Discharge Information Referrals: Con Lynch MD [Primary Care Provider] - Forms: ED Department Discharge Additional Instructions: The following information is given to patients seen in the emergency department who are being discharged to home. This information is to outline your options for follow-up care. We provide all patients seen in our emergency department with a follow-up referral. The need for follow-up, as well as the timing and circumstances, are variable depending upon the specifics of your emergency department visit. If you don't have a primary care physician on staff, we will provide you with a referral. We always advise you to contact your personal physician following an emergency department visit to inform them of the circumstance of the visit and for follow-up with them and/or the need for any referrals to a consulting specialist. The emergency department will also refer you to a specialist when appropriate. This referral assures that you have the opportunity for followup care with a specialist. All of these measure are taken in an effort to provide you with optimal care, which includes your followup. Under all circumstances we always encourage you to contact your private physician who remains a resource for coordinating your care. When calling for followup care, please make the office aware that this follow-up is from your recent emergency room visit. If for any reason you are refused follow-up, please contact the [facility] emergency department at and asked to speak to the emergency department charge nurse. Clear liquids 24 hours follow-up scheduled appointment with private medical doctor return as needed as discussed <Josué Alvarez - Last Filed: 07/07/18 20:02> ED HPI GENERAL MEDICAL PROBLEM - History of Present Illness INITIAL COMMENTS - FREE TEXT/NARRATIVE: Patient's emergency department course has been unremarkable CT of her abdomen was negative for any acute abdominal process is lipase was slightly elevated in the 400s I discussed with patient admission for observation patient declines request follow-up as outpatient scheduled appointment that she has with her private doctor small next week. Return as needed discuss for any problems she is to have clear liquids 24 hours advance her diet as tolerated and return as needed as discussed ED ROS GENERAL - Review of Systems Review Of Systems: ROS reveals no pertinent complaints other than HPI. ED EXAM, GENERAL - Physical Exam Exam: See Below (See dictation) Departure - Departure Time of Disposition: 20:02 Condition: Good
[2018-07-07] MEDS ORDERED: HYDROmorphone 2 MG/ML SDV IVPUSH PRN (18:27)
[2018-07-07] MEDS ORDERED: HYDROmorphone 1 MG/ML Syringe ONE (18:39)
--- NOTE | 2018-07-07 18:52 | CR ---
INDICATION: Pain with shortness of breath. TECHNIQUE: Chest 1 view. COMPARISON: None FINDINGS: Cardiovascular and mediastinum: Heart size and vasculature are normal in caliber and appearance. Mediastinum is within normal limits. Lungs and pleural space: Lungs are clear. No sign of infiltrate or mass. No sign of pleural effusion. No pneumothorax. Bones and soft tissues: No significant findings. IMPRESSION: Unremarkable chest. Dictated by Everett Navarrete MD @ Jul 07 2018 6:50PM Signed by Dr. Everett Navarrete @ Jul 07 2018 6:50PM
[2018-07-07] MEDS ORDERED: Iopamidol 755 MG/ML 500 ML Multipack Bottle IVPUSH STA (19:28)
--- NOTE | 2018-07-07 19:59 | CT ---
INDICATION: Epigastric pain. TECHNIQUE: Contiguous axial images through the abdomen and pelvis after the intravenous administration of contrast. Sagittal and coronal reconstructions. COMPARISON: 12/17/2017. FINDINGS: Lower chest: Normal heart size. No pericardial effusion. Minimal right basilar airspace disease. No pleural fluid. Abdomen and pelvis: Fatty liver. Cholecystectomy. No bile duct dilatation. Spleen is normal in size. Incidental splenule. No pancreatic mass or CT evidence of acute pancreatitis. Stable tiny right adrenal nodule, likely related to an adenoma. Left adrenal gland is unremarkable. Kidneys are unremarkable. Normal caliber abdominal aorta. No abnormally dilated bowel to suggest obstruction. Normal appendix. No free air or free fluid. No lymphadenopathy by size criteria. Unremarkable urinary bladder. Hysterectomy. Tubal inserts. No appreciable adnexal mass. Bones: No acute abnormality. IMPRESSION: 1. No CT evidence of an acute abnormality in the abdomen or pelvis. Specifically, no evidence of pancreatitis. 2. Minimal right basilar airspace disease. Clinically correlate for an acute infectious or inflammatory process (i.e. pneumonia). 3. Incidental findings as noted. Dictated by Himanshu Linares MD @ 07/07/2018 7:54:39 PM Please note that all CT scans at this facility use dose modulation, iterative reconstruction, and/or weight-based dosing when appropriate to reduce radiation dose to as low as reasonably achievable. Dictated by: Himanshu Linares MD @ 07/07/2018 19:56:47 (Electronically Signed)
[2018-07-07 20:13] VITALS: BP 136/88
== END 2018-07-07 20:13 | disposition home or self-care (01) ==
LOC: MW.ED 17:24
DX: K85.90 Acute pancreatitis without necrosis or infection, unspecified (principal); R42 Dizziness and giddiness; I10 Essential (primary) hypertension; I25.2 Old myocardial infarction; M19.90 Unspecified osteoarthritis, unspecified site; E66.9 Obesity, unspecified; E11.40 Type 2 diabetes mellitus with diabetic neuropathy, unspecified; Z88.8 Allergy status to other drugs, medicaments and biological substances; Z88.5 Allergy status to narcotic agent; Z79.899 Other long term (current) drug therapy; Z90.49 Acquired absence of other specified parts of digestive tract; Z96.22 Myringotomy tube(s) status; Z95.5 Presence of coronary angioplasty implant and graft; Z79.82 Long term (current) use of aspirin; Z79.4 Long term (current) use of insulin
CPT/HCPCS: 36415; 71045; 74177; 80053; 81001; 83690; 84484; 85025; 87086; 93005; 96361; 96374; 96375; 99285; A9270; C9113; J1170; J7040; Q9967

== ENCOUNTER 2018-07-20 06:29 | Day surgery (SDC) | payer MEDICAID ==
[2018-07-20] MEDS ORDERED: Bupivacaine 25%/EPINEPHrine/PF 30 ML ONE (07:13)
--- NOTE | 2018-07-20 07:13 | PCM.PREANE ---
Preanesthetic Assessment - Anesthesia/Transfusion/Family Hx Anesthesia History: Prior Anesthesia Without Reaction Other Type of Anesthesia Reaction Comment: Deneis any known problem with anesthesia in past Family History of Anesthesia Reaction: No Transfusion History: Prior Transfusion Without Reaction Intubation History: Unknown - Review of Systems General: No Symptoms Pulmonary: No Symptoms Cardiovascular: No Symptoms Gastrointestinal: No Symptoms Neurological: No Symptoms Other: Reports: None - Physical Assessment O2 Sat by Pulse Oximetry: 98 Respiratory Rate: 16 Vital Signs: Last Vital Signs Temp 36.6 C 07/20/18 06:45 Pulse 88 07/20/18 06:45 Resp 16 07/20/18 06:45 BP 128/77 07/20/18 06:45 Pulse Ox 98 07/20/18 06:45 Height: 1.65 m Weight: 100.244 kg ASA Class: 3 Mental Status: Alert & Oriented x3 Airway Class: Mallampati = 2 Dentition: Reports: Normal Dentition Thyro-Mental Finger Breadths: 3 Mouth Opening Finger Breadths: 3 ROM/Head Extension: Full Lungs: Clear to Auscultation, Normal Respiratory Effort Cardiovascular: Regular Rate, Regular Rhythm - Allergies Allergies/Adverse Reactions: Allergies Allergy/AdvReac Type Severity Reaction Status Date / Time prednisone Allergy Mild Nausea Verified 06/19/18 14:52 cortisone Allergy Cannot Verified 07/07/18 17:38 Remember doxycycline Allergy Hives Verified 06/19/18 14:52 morphine Allergy Itching Verified 06/19/18 14:52 - Blood Blood Available: No - Anesthesia Plan Pre-Op Medication Ordered: None - Acknowledgements Anesthesia Type Planned: MAC Pt an Appropriate Candidate for the Planned Anesthesia: Yes Alternatives and Risks of Anesthesia Discussed w Pt/Guardian: Yes Pt/Guardian Understands and Agrees with Anesthesia Plan: Yes PreAnesthesia Questionnaire HEENT History: Reports: Glaucoma, Impaired Vision, Other (See Below) Other HEENT History: needs glasses but doesnt wear them Cardiovascular History: Reports: Angina, High Cholesterol, Hypertension, [place], Stents (x1 in 2014), Other (See Below) (PVD, s/p rt BKA 01/28) Other Cardiovascular History: hx of [place] with cardiac stenting Respiratory History: Reports: Asthma, Bronchitis, Recurrent, COPD, Pneumonia, Recurrent Other Respiratory History: COPD with Nebulizer treatments and inhaler - better since she stoped smoking 01/28, Hx of bronchitis annd pneumonia Gastrointestinal History: Reports: GERD, Hiatal Hernia Genitourinary History: Reports: None 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: Musculoskeletal History: Reports: Arthritis Other Musculoskeletal History: rt leg below the knee amputation Neurological History: Reports: Headaches, Chronic, Neuropathy, Diabetic, Other ( See Below) Other Neuro History: hx: Headaches Psychiatric History: Reports: None Endocrine/Metabolic History: Reports: Diabetes, Type II, Obesity/BMI 30+ Hematologic History: Reports: Anemia, Blood Transfusion(s) Immunologic History: Reports: None Oncologic (Cancer) History: Reports: None Dermatologic History: Reports: None - Infectious Disease History Infectious Disease History: Reports: None - Past Surgical History Head Surgeries/Procedures: Reports: None HEENT Surgical History: Reports: Myringotomy w Tube(s) Other HEENT Surgeries/Procedures: tube placement Cardiovascular Surgical History: Reports: Coronary Artery Stent Other Cardiovascular Surgeries/Procedures: 2014 Respiratory Surgical History: Reports: None GI Surgical History: Reports: Cholecystectomy, Colonoscopy, EGD Female Surgical History: Reports: Hysterectomy (vaginal left CTR a month ago) Endocrine Surgical History: Reports: None Neurological Surgical History: Reports: None Musculoskeletal Surgical History: Reports: Amputation, Carpal Tunnel Other Musculoskeletal Surgeries/Procedures:: R below the knee amputation Oncologic Surgical History: Reports: None Dermatological Surgical History: Reports: None - SUBSTANCE USE Smoking Status *Q: Former Smoker (quit smoking 01/28) Tobacco Use Within Last Twelve Months: No Recreational Drug Use History: No - HOME MEDS Home Medications: Home Meds Aspirin [Adeel Chewable Aspirin] 81 mg PO DAILY 07/26/14 [History] Nitroglycerin [Nitrostat] 1 tab SL ASDIRECTED PRN 03/04/15 [History] Apixaban [Eliquis] 5 mg PO BID 01/21/17 [History] Gabapentin [Neurontin] 600 mg PO TID 01/21/17 [History] Insulin Detemir [Levemir] 75 units SQ BID 01/21/17 [History] Albuterol Sulfate 1 unit NEB ASDIRECTED PRN 07/18/17 [History] Diltiazem HCl [Dilt-Xr] 180 mg PO DAILY 07/18/17 [History] Fenofibrate Nanocrystallized [Fenofibrate] 145 mg PO DAILY 07/18/17 [History] Lisinopril 5 mg PO DAILY 07/18/17 [History] Magnesium Oxide [Magnesium] 400 mg PO DAILY 07/18/17 [History] Metoprolol Succinate 25 mg PO DAILY 07/18/17 [History] atorvaSTATin Calcium [Atorvastatin Calcium] 40 mg PO BEDTIME 07/18/17 [History] traMADol [Ultram] 2 tab PO TID PRN 07/18/17 [History] Albuterol Sulfate [Proair Hfa] 2 puff INH QID PRN 11/07/17 [History] Isosorbide Mononitrate [Isosorbide Mononitrate ER] 30 mg PO DAILY 11/07/17 [ History] Omeprazole 20 mg PO DAILY 11/07/17 [History] Oxymetazoline [Afrin Original 0.05% Nasal [place]] 1 spray NASBOTH ASDIRECTED [History] Insulin Aspart [NovoLOG] 250 units SUBCUT ASDIRECTED 06/19/18 [History] Liraglutide [Victoza] 1.8 ng SUBCUT DAILY 06/19/18 [History] Sucralfate 1 gm PO QID 06/19/18 [History] Ondansetron [Zofran] 4 mg PO ASDIRECTED PRN 07/17/18 [History] - CURRENT (IN HOUSE) MEDS Current Meds: Current Medications Bupivacaine HCl/Epinephrine Bitart ([place] 0.25%/Epinephrine 1:200,000) 10 ml INJECT ONETIME ONE Stop: 07/20/18 08:01 Cefazolin Sodium/Dextrose 2 gm (/ Premix) 50 mls @ 100 mls/hr IV ONETIME ONE Stop: 07/20/18 08:29 Lactated Ringer's (Ringers, Lactated) 1,000 mls @ 125 mls/hr IV ASDIRECTED [facility]
[2018-07-20] MEDS ORDERED: fentaNYL 100 MCG/2 ML SDV ONE (07:27)
[2018-07-20] MEDS ORDERED: Lidocaine 2% 5 ML SDV ONE (07:27)
[2018-07-20] MEDS ORDERED: Midazolam 1 MG/ML 2 ML SDV ONE (07:27)
[2018-07-20] MEDS ORDERED: Propofol 200 MG/20 ML SDV ONE (07:27)
[2018-07-20] MEDS ORDERED: Lactated Ringers 1,000 ML IV SCH (08:00)
[2018-07-20] MEDS ORDERED: ceFAZolin 2 GM in Premix Bag 1 BAG IV ONE (08:00)
[2018-07-20] MEDS ORDERED: Bupivacaine 0.25%/EPINEPHrine 1:200,000 10 ML SDV INJECT ONE (08:00)
[2018-07-20 08:42] VITALS: BP 124/70
--- NOTE | 2018-07-20 08:48 | PCM.POSTAN ---
POST ANESTHESIA ASSESSMENT - MENTAL STATUS Mental Status: Alert, Oriented - RESPIRATORY Respiratory Status: Respiratory Rate WNL, Airway Patent, O2 Saturation Stable - CARDIOVASCULAR CV Status: Pulse Rate WNL, Blood Pressure Stable - GASTROINTESTINAL GI Status: No Symptoms - PAIN Pain Score: 0 - POST OP HYDRATION Hydration Status: Adequate & Stable - OBSERVATIONS Free Text/Narrative:: No anesthesia problems,patient skipped recovery room stage of postoperative care.
--- NOTE | 2018-07-20 08:49 | PCM48HPAN ---
Post Anesthesia Note - EVALUATION WITHIN 48HRS OF ANESTHETIC Vital Signs in Normal Range: Yes Patient Participated in Evaluation: Yes Respiratory Function Stable: Yes Airway Patent: Yes Cardiovascular Function Stable: Yes Hydration Status Stable: Yes Pain Control Satisfactory: Yes Nausea and Vomiting Control Satisfactory: Yes Mental Status Recovered: Yes Resp Rate: 16 - COMMENTS/OBSERVATIONS Free Text/Narrative:: no anesthesia problems
--- NOTE | 2018-07-20 15:07 | PCM.OPNOTE ---
- General Post-Op/Procedure Note Date of Surgery/Procedure: 07/20/18 Operative Procedure(s): right carpal tunnel release Pre Op Diagnosis: right carpal tunnel release Post-Op Diagnosis: Same Anesthesia Technique: Local, MAC Primary Surgeon: Dior Guzmán Housecleaner Floor: Dinorah Ordoñez Complications: None Condition: Good
--- NOTE | 2018-07-21 08:57 | PCM.HP ---
H&P History of Present Illness - General Date of Service: 07/20/18 Admit Problem/Dx: right carpal tunnel syndrome post release on the left. History Limitations: Reports: No Limitations - History of Present Illness Initial Comments - Free Text/Narative: right carpal tunnel syndrome worsening. Left previously released with great results. Recent issue with elevated labs is now resolved and further evaluated. OK to proceed with carpal tunnel release. Onset of Symptoms: Reports: Gradual Location: Reports: Upper Extremity, Right Quality: Reports: Ache, Pressure, Throbbing Improves with: Reports: None Worsens with: Reports: Movement Associated Symptoms: Reports: No Other Symptoms Right Upper Hand Pain Score (Numeric/FACES): 5 - Related Data Allergies/Adverse Reactions: Allergies Allergy/AdvReac Type Severity Reaction Status Date / Time prednisone Allergy Mild Nausea Verified 06/19/18 14:52 cortisone Allergy Cannot Verified 07/07/18 17:38 Remember doxycycline Allergy Hives Verified 06/19/18 14:52 morphine Allergy Itching Verified 06/19/18 14:52 Home Medications: Home Meds Aspirin [Adeel Chewable Aspirin] 81 mg PO DAILY 07/26/14 [History] Nitroglycerin [Nitrostat] 1 tab SL ASDIRECTED PRN 03/04/15 [History] Apixaban [Eliquis] 5 mg PO BID 01/21/17 [History] Gabapentin [Neurontin] 600 mg PO TID 01/21/17 [History] Insulin Detemir [Levemir] 75 units SQ BID 01/21/17 [History] Albuterol Sulfate 1 unit NEB ASDIRECTED PRN 07/18/17 [History] Diltiazem HCl [Dilt-Xr] 180 mg PO DAILY 07/18/17 [History] Fenofibrate Nanocrystallized [Fenofibrate] 145 mg PO DAILY 07/18/17 [History] Lisinopril 5 mg PO DAILY 07/18/17 [History] Magnesium Oxide [Magnesium] 400 mg PO DAILY 07/18/17 [History] Metoprolol Succinate 25 mg PO DAILY 07/18/17 [History] atorvaSTATin Calcium [Atorvastatin Calcium] 40 mg PO BEDTIME 07/18/17 [History] traMADol [Ultram] 2 tab PO TID PRN 07/18/17 [History] Albuterol Sulfate [Proair Hfa] 2 puff INH QID PRN 11/07/17 [History] Isosorbide Mononitrate [Isosorbide Mononitrate ER] 30 mg PO DAILY 11/07/17 [ History] Omeprazole 20 mg PO DAILY 11/07/17 [History] Oxymetazoline [Afrin Original 0.05% Nasal [place]] 1 spray NASBOTH ASDIRECTED [History] Insulin Aspart [NovoLOG] 250 units SUBCUT ASDIRECTED 06/19/18 [History] Liraglutide [Victoza] 1.8 ng SUBCUT DAILY 06/19/18 [History] Sucralfate 1 gm PO QID 06/19/18 [History] Ondansetron [Zofran] 4 mg PO ASDIRECTED PRN 07/17/18 [History] Acetaminophen/HYDROcodone [[place] 325-5 MG] 1 tab PO Q4H PRN #30 tablet 07/20/18 [Rx] Past Medical History HEENT History: Reports: Glaucoma, Impaired Vision, Other (See Below) Other HEENT History: needs glasses but doesnt wear them Cardiovascular History: Reports: Angina, High Cholesterol, Hypertension, [place], Stents (x1 in 2014), Other (See Below) (PVD, s/p rt BKA 01/28) Other Cardiovascular History: hx of [place] with cardiac stenting Respiratory History: Reports: Asthma, Bronchitis, Recurrent, COPD, Pneumonia, Recurrent Other Respiratory History: COPD with Nebulizer treatments and inhaler - better since she stoped smoking 01/28, Hx of bronchitis annd pneumonia Gastrointestinal History: Reports: GERD, Hiatal Hernia Genitourinary History: Reports: 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: Musculoskeletal History: Reports: Arthritis Other Musculoskeletal History: rt leg below the knee amputation Neurological History: Reports: Headaches, Chronic, Neuropathy, Diabetic, Other ( See Below) Other Neuro History: hx: Headaches Psychiatric History: Reports: None Endocrine/Metabolic History: Reports: Diabetes, Type II, Obesity/BMI 30+ Hematologic History: Reports: Anemia, Blood Transfusion(s) Immunologic History: Reports: None Oncologic (Cancer) History: Reports: None Dermatologic History: Reports: None - Infectious Disease History Infectious Disease History: Reports: None - Past Surgical History Head Surgeries/Procedures: Reports: None HEENT Surgical History: Reports: Myringotomy w Tube(s) Other HEENT Surgeries/Procedures: tube placement Cardiovascular Surgical History: Reports: Coronary Artery Stent Other Cardiovascular Surgeries/Procedures: 2014 Respiratory Surgical History: Reports: None GI Surgical History: Reports: Cholecystectomy, Colonoscopy, EGD Female Surgical History: Reports: Hysterectomy (vaginal left CTR a month ago) Endocrine Surgical History: Reports: None Neurological Surgical History: Reports: None Musculoskeletal Surgical History: Reports: Amputation, Carpal Tunnel Other Musculoskeletal Surgeries/Procedures:: R below the knee amputation Oncologic Surgical History: Reports: None Dermatological Surgical History: Reports: None Social & Family History - Family History Family Medical History: Noncontributory HEENT: Reports: Cataract, Impaired Vision, Otitis Media, Sinusitis Cardiac: Reports: High Cholesterol, Hypertension, [place] Other Cardiac Family History: heart problems maternal and paternal sides Respiratory: Reports: Asthma, COPD, Sleep Apnea GI: Reports: None Musculoskeletal: Reports: Arthritis, Gout Neurological: Reports: CVA Psychiatric: Reports: None Endocrine/Metabolic: Reports: Diabetes, Type I, Diabetes, type II, Hyperthyroidism, Obesity/MBI 30+ Hematologic: Reports: Anemia Oncologic: Reports: Lung - Tobacco Use Smoking Status *Q: Former Smoker (quit smoking 01/28) Used Tobacco, but Quit: Yes Month/Year Tobacco Last Used: quit smoking 1 year ago - Caffeine Use Caffeine Use: Reports: Soda Caffeine Use Comment: "sometimes" - Recreational Drug Use Recreational Drug Use: No H&P Review of Systems - Review of Systems: Review Of Systems: See Below General: Denies: Fever, Chills HEENT: Denies: No Symptoms Pulmonary: Reports: Wheezing, Cough (chronic) Gastrointestinal: Reports: Abdominal Pain (now ok. ) Musculoskeletal: Reports: Hand Pain Skin: Reports: No Symptoms Psychiatric: Reports: No Symptoms Neurological: Reports: Numbness (right hand. relief on the left ) Exam - Exam Exam: See Below - Vital Signs Vital Signs: Last Vital Signs Temp 97.5 F 07/20/18 08:25 Pulse 89 07/20/18 08:40 Resp 16 07/20/18 08:49 BP 124/70 07/20/18 08:40 Pulse Ox 96 07/20/18 08:40 Weight: 221 lb - Exam General: Alert, Oriented, Cooperative HEENT: EOMI Neck: Trachea Midline Lungs: Clear to Auscultation, Normal Respiratory Effort. No: Wheezing Cardiovascular: Regular Rate, Regular Rhythm GI/Abdominal Exam: Soft Extremities: Other (positive provocation at the wrist for carpal tunnel syndrome ) Skin: Warm, Dry, Wound (left carpal tunnel release well healed. ) Neuro Extensive - Mental Status: Alert, Oriented x3 Psychiatric: Alert, Normal Affect, Normal Mood *Q Meaningful Use (ADM) - VTE *Q VTE Criteria *Q: Patient Is On Eloquis and this was not stopped given her underlying comorbidities. No tourniquet used. - VTE Risk Assess *Q Each Risk Factor Represents 1 Point: Age 41 - 59 years, Minor Surgery Planned Total Score 1 Point Risk Factors: 2 Each Risk Factor Represents 2 Points: None Total Score 2 Point Risk Factors: 0 Each Risk Factor Represents 3 Points: None (patient history of blood clot while smoking and loss of leg. On eloquis. ) Total Score 3 Point Risk Factors: 0 Each Risk Factor Represents 5 Points: None Total Score 5 Point Risk Factors: 0 Venous Thromboembolism Risk Factor Score *Q: 2 - Problem List (1) Right carpal tunnel syndrome SNOMED Code(s): 96289194 ICD Code: G56.01 - CARPAL TUNNEL SYNDROME, RIGHT UPPER LIMB Status: Chronic Priority: High Problem List Initiated/Reviewed/Updated: Yes Orders Last 24hrs: Active Orders 24 hr Category Date Time Status Ready for Discharge [RC] PER UNIT ROUTINE Care 07/20/18 08:35 Active Verify Patient Consent Obtain [RC] ASDIRECTED Care 07/20/18 08:00 Active Assessment/Plan Comment:: TO OR for release of right carpal tunnel.
== END 2018-07-20 09:07 | disposition home or self-care (01) ==
LOC: MW.SDS 06:29
PROVIDERS: ATTEND Plastic Surgery
DX: G56.01 Carpal tunnel syndrome, right upper limb (principal); I25.2 Old myocardial infarction; E78.00 Pure hypercholesterolemia, unspecified; J44.9 Chronic obstructive pulmonary disease, unspecified; E11.9 Type 2 diabetes mellitus without complications; K21.9 Gastro-esophageal reflux disease without esophagitis; E66.9 Obesity, unspecified; Z68.36 Body mass index [BMI] 36.0-36.9, adult; D64.9 Anemia, unspecified; Z87.891 Personal history of nicotine dependence; Z88.1 Allergy status to other antibiotic agents; Z88.5 Allergy status to narcotic agent; Z88.8 Allergy status to other drugs, medicaments and biological substances; Z79.82 Long term (current) use of aspirin; Z79.4 Long term (current) use of insulin; Z79.891 Long term (current) use of opiate analgesic; Z79.51 Long term (current) use of inhaled steroids; Z79.899 Other long term (current) drug therapy; Z79.01 Long term (current) use of anticoagulants; Z95.818 Presence of other cardiac implants and grafts
CPT/HCPCS: 64721; J2001; J2250; J2704; J3010; 01810

== ENCOUNTER 2018-10-20 01:49 | Emergency (ER) | payer MEDICAID ==
--- NOTE | 2018-10-20 02:23 | EDM.PDOC ---
ED HPI GENERAL MEDICAL PROBLEM - General Chief Complaint: Lower Extremity Injury/Pain Stated Complaint: NUMBNESS IN LEFT FT Time Seen by Provider: 10/20/18 01:55 - History of Present Illness INITIAL COMMENTS - FREE TEXT/NARRATIVE: HISTORY AND PHYSICAL: History of present illness: The patient is a 43-year-old complicated female who follows in our family practice clinic with Dr. Lynch and who presents with concern about some bleeding at one of her toes on her foot that occurred at 4:00 yesterday evening but has since stopped and then noticing that she had numbness and discomfort to all of her toes of her left foot. She denies any trauma to the toes or the foot and says that her blood sugar has been in good control with her last value on her monitor that she wears continuously at 119. She says that there is only been slight swelling there but she has been up and about and she has no foot pain proximal leg pain or other systemic issues. She's had no new swelling of her leg and she is currently on Eliquis chronically. She wasn't sure what to do about this in light of her complicated history she thought should be checked out. She has no other joint pain or extremity complaints and no systemic complaints of fever chills nausea vomiting abdominal pain shortness of breath chest pain. The patient has tramadol at home that she can use and she has not taken her morning dose yet and she says that many times she will not take a dose for chronic pain. She did not take an extra dose with this pain. She is also on gabapentin for neuropathy and she tells me she does have a scheduled follow-up in the clinic in the next week and a half. Review of systems: As per history of present illness and below otherwise all systems reviewed and negative. Past medical history: As per history of present illness and as reviewed below otherwise noncontributory. Surgical history: As per history of present illness and as reviewed below otherwise noncontributory. Social history: No reported history of drug or alcohol abuse. Family history: As per history of present illness and as reviewed below otherwise noncontributory. Physical exam: General: Well-developed well-nourished mildly overweight female who is nontoxic and vital signs are noted by me HEENT: Atraumatic, normocephalic, negative for conjunctival pallor or scleral icterus, mucous membranes moist, throat clear, neck supple, nontender, trachea midline. Lungs: Clear to auscultation, breath sounds equal bilaterally, chest nontender. Heart: S1S2, regular rate and rhythm no overt murmurs Abdomen: Soft, nondistended, nontender. NABS Pelvis: Stable nontender. Genitourinary: Deferred. Rectal: Deferred. Extremities: Atraumatic, range of motion of all extremities and there is a visible prostatic on the right lower extremity secondary to the patient's history of a BKA, negative for cords or calf pain. The left lower extremity has no pedal edema or calf swelling and there is no erythema of the lower leg foot or toes. In examination of the left foot and toes there is no area of excoriation abrasion laceration or skin change and there is no crusted blood scabs or active bleeding. There are no palpable bony deformities throughout the left foot and toes and Refill is normal. I can feel a faint dorsalis pedis pulse and I was able to Doppler the posterior tibial pulse on the left foot and it is biphasic. On palpation I cannot elicit much pain and there is no warmth to the toes or joints. The feet are dirty Neurovascular unremarkable except that she says that all of her toes feel slightly numb on palpation Neuro: Awake, alert, oriented. Cranial nerves II through XII unremarkable. Cerebellum unremarkable. Motor and sensory unremarkable throughout. Exam nonfocal. Diagnostics: [] Therapeutics: [] Discussed with the patient that at this point there are no clinical findings to indicate further testing and she does not want any blood work done. I do not feel that an x-ray is indicated at there has been no trauma and there is no soft tissue swelling changes or bony deformities or tenderness. I discussed with her the possibility of her taking her tramadol versus skipping doses to help with this pain and also discussed with her provider about her gabapentin. She is comfortable with no workup at this point and will return if the symptoms worsen. Impression: Medical Screening exam, subjective left toe pain and numbness Definitive disposition and diagnosis as appropriate pending reevaluation and review of above. left foot Pain Score (Numeric/FACES): 7 - Related Data Allergies Allergy/AdvReac Type Severity Reaction Status Date / Time prednisone Allergy Mild Nausea Verified 10/20/18 01:58 cortisone Allergy Stomach Verified 10/20/18 01:58 Upset doxycycline Allergy Hives Verified 10/20/18 01:58 morphine Allergy Itching Verified 10/20/18 01:58 Home Meds: Home Meds Aspirin [Adeel Chewable Aspirin] 81 mg PO DAILY 07/26/14 [History] Nitroglycerin [Nitrostat] 1 tab SL ASDIRECTED PRN 03/04/15 [History] Apixaban [Eliquis] 5 mg PO BID 01/21/17 [History] Gabapentin [Neurontin] 600 mg PO TID 01/21/17 [History] Insulin Detemir [Levemir] 75 units SQ BID 01/21/17 [History] Albuterol Sulfate 1 unit NEB ASDIRECTED PRN 07/18/17 [History] Diltiazem HCl [Dilt-Xr] 180 mg PO DAILY 07/18/17 [History] Fenofibrate Nanocrystallized [Fenofibrate] 145 mg PO DAILY 07/18/17 [History] Lisinopril 5 mg PO DAILY 07/18/17 [History] Magnesium Oxide [Magnesium] 400 mg PO DAILY 07/18/17 [History] Metoprolol Succinate 25 mg PO DAILY 07/18/17 [History] atorvaSTATin Calcium [Atorvastatin Calcium] 40 mg PO BEDTIME 07/18/17 [History] traMADol [Ultram] 2 tab PO TID PRN 07/18/17 [History] Albuterol Sulfate [Proair Hfa] 2 puff INH QID PRN 11/07/17 [History] Isosorbide Mononitrate [Isosorbide Mononitrate ER] 30 mg PO DAILY 11/07/17 [ History] Omeprazole 20 mg PO DAILY 11/07/17 [History] Oxymetazoline [Afrin Original 0.05% Nasal [place]] 1 spray NASBOTH ASDIRECTED [History] Insulin Aspart [NovoLOG] 250 units SUBCUT ASDIRECTED 06/19/18 [History] Liraglutide [Victoza] 1.8 ng SUBCUT DAILY 06/19/18 [History] Sucralfate 1 gm PO QID 06/19/18 [History] Ondansetron [Zofran] 4 mg PO ASDIRECTED PRN 07/17/18 [History] Acetaminophen/HYDROcodone [[place] 325-5 MG] 1 tab PO Q4H PRN #30 tablet 07/20/18 [Rx] Past Medical History HEENT History: Reports: Glaucoma, Impaired Vision, Other (See Below) Other HEENT History: needs glasses but doesnt wear them Cardiovascular History: Reports: Angina, High Cholesterol, Hypertension, [place], Stents, Other (See Below) Other Cardiovascular History: hx of [place] with cardiac stenting Respiratory History: Reports: Asthma, Bronchitis, Recurrent, COPD, Pneumonia, Recurrent Other Respiratory History: COPD with Nebulizer treatments and inhaler - better since she stoped smoking 01/28, Hx of bronchitis annd pneumonia Gastrointestinal History: Reports: GERD, Hiatal Hernia Genitourinary History: Reports: None 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: Musculoskeletal History: Reports: Arthritis Other Musculoskeletal History: rt leg below the knee amputation Neurological History: Reports: Headaches, Chronic, Neuropathy, Diabetic, Other ( See Below) Other Neuro History: hx: Headaches Psychiatric History: Reports: None Endocrine/Metabolic History: Reports: Diabetes, Type II, Obesity/BMI 30+ Hematologic History: Reports: Anemia, Blood Transfusion(s) Immunologic History: Reports: None Oncologic (Cancer) History: Reports: None Dermatologic History: Reports: None - Infectious Disease History Infectious Disease History: Reports: None - Past Surgical History Head Surgeries/Procedures: Reports: None HEENT Surgical History: Reports: Myringotomy w Tube(s) Other HEENT Surgeries/Procedures: tube placement Cardiovascular Surgical History: Reports: Coronary Artery Stent Other Cardiovascular Surgeries/Procedures: 2014 Respiratory Surgical History: Reports: None GI Surgical History: Reports: Cholecystectomy, Colonoscopy, EGD Female Surgical History: Reports: Hysterectomy Endocrine Surgical History: Reports: None Neurological Surgical History: Reports: None Musculoskeletal Surgical History: Reports: Amputation, Carpal Tunnel Other Musculoskeletal Surgeries/Procedures:: R below the knee amputation Oncologic Surgical History: Reports: None Dermatological Surgical History: Reports: None Social & Family History - Family History Family Medical History: Noncontributory HEENT: Reports: Cataract, Impaired Vision, Otitis Media, Sinusitis Cardiac: Reports: High Cholesterol, Hypertension, [place] Other Cardiac Family History: heart problems maternal and paternal sides Respiratory: Reports: Asthma, COPD, Sleep Apnea GI: Reports: None Musculoskeletal: Reports: Arthritis, Gout Neurological: Reports: CVA Psychiatric: Reports: None Endocrine/Metabolic: Reports: Diabetes, Type I, Diabetes, type II, Hyperthyroidism, Obesity/MBI 30+ Hematologic: Reports: Anemia Oncologic: Reports: Lung - Tobacco Use Smoking Status *Q: Unknown Ever Smoked - Caffeine Use Caffeine Use: Reports: Soda Caffeine Use Comment: "sometimes" - Recreational Drug Use Recreational Drug Use: No Review of Systems - Review of Systems Review Of Systems: ROS reveals no pertinent complaints other than HPI. ED EXAM, GENERAL - Physical Exam Exam: See Below (See dictation) Course - Vital Signs Last Recorded V/S: Last Vital Signs Temp 36.1 C 10/20/18 01:58 Pulse 101 H 10/20/18 01:58 Resp 18 10/20/18 01:58 BP 136/92 H 10/20/18 01:58 Pulse Ox 98 10/20/18 01:58 Departure - Departure Time of Disposition: 02:23 Disposition: Home, Self-Care 01 Condition: Good Clinical Impression: Encounter for medical screening examination, Toe pain, left - Discharge Information Referrals: PCP,None [Primary Care Provider] - Additional Instructions: The following information is given to patients seen in the emergency department who are being discharged to home. This information is to outline your options for follow-up care. We provide all patients seen in our emergency department with a follow-up referral. The need for follow-up, as well as the timing and circumstances, are variable depending upon the specifics of your emergency department visit. If you don't have a primary care physician on staff, we will provide you with a referral. We always advise you to contact your personal physician following an emergency department visit to inform them of the circumstance of the visit and for follow-up with them and/or the need for any referrals to a consulting specialist. The emergency department will also refer you to a specialist when appropriate. This referral assures that you have the opportunity for followup care with a specialist. All of these measure are taken in an effort to provide you with optimal care, which includes your followup. Under all circumstances we always encourage you to contact your private physician who remains a resource for coordinating your care. When calling for followup care, please make the office aware that this follow-up is from your recent emergency room visit. If for any reason you are refused follow-up, please contact the [facility] emergency department at and ask to speak to the emergency department charge nurse. [facility] Primary care- Internal Medicine and Family Prctice [address] [place] [phone] Please monitor your symptoms and connect with her provider in the clinic on Monday to discuss them and whether or not your appointment needs to be moved up. Continue all home medication and please take her tramadol as we discussed for pain management. Return to ER as needed and as discussed. Please be more careful with your feet wearing shoes or protection at all times
[2018-10-20 02:33] VITALS: BP 109/71; PULSE 94
== END 2018-10-20 02:30 | disposition home or self-care (01) ==
LOC: MW.ED 01:49
DX: M79.675 Pain in left toe(s) (principal); I10 Essential (primary) hypertension; E78.00 Pure hypercholesterolemia, unspecified; I25.2 Old myocardial infarction; K21.9 Gastro-esophageal reflux disease without esophagitis; E11.9 Type 2 diabetes mellitus without complications; D64.9 Anemia, unspecified; J44.9 Chronic obstructive pulmonary disease, unspecified; Z79.899 Other long term (current) drug therapy; Z79.4 Long term (current) use of insulin; Z79.82 Long term (current) use of aspirin; Z88.8 Allergy status to other drugs, medicaments and biological substances
CPT/HCPCS: 99283

== ENCOUNTER 2018-11-10 11:14 | Emergency (ER) | payer MEDICAID ==
[2018-11-10] MEDS ORDERED: Sodium Chloride 0.9% 1,000 ML IV ONE (11:34)
--- NOTE | 2018-11-10 11:36 | EDM.PDOC ---
ED HPI GENERAL MEDICAL PROBLEM - General Chief Complaint: Abdominal Pain Stated Complaint: BACK AND STOMACH PAIN Time Seen by Provider: 11/10/18 11:16 Source of Information: Reports: Patient History Limitations: Reports: No Limitations - History of Present Illness INITIAL COMMENTS - FREE TEXT/NARRATIVE: HISTORY AND PHYSICAL: History of present illness: Patient is a 43-year-old female who presents to the emergency room with complaints of right lower quadrant pain, low back pain and diarrhea. She states approximately one week ago she had several bouts of diarrhea although this had resolved until last evening besides the diarrhea starting last night she developed low back pain and right lower quadrant pain. She describes it as a dull aching pain. She denies any nausea, vomiting, dysuria. Patient denies any fever, chills, headache, change in vision, syncope or near syncope. Denies any chest pain, back pain, shortness of breath or cough. Has not noted any blood in urine or stool. Denies any chance of as she has had a total hysterectomy. No vaginal discharge or concerns of STDs. Patient has been eating and drinking appropriately. Past medical history of hypertension, CT with stent placement (2015), COPD, type 2 diabetes, below the knee amputation (right), and elevated cholesterol. Review of systems: As per history of present illness and below otherwise all systems reviewed and negative. Past medical history: As per history of present illness and as reviewed below otherwise noncontributory. Surgical history: As per history of present illness and as reviewed below otherwise noncontributory. Social history: See social history for further information Family history: As per history of present illness and as reviewed below otherwise noncontributory. Physical exam: General: Well-developed and well-nourished 43-year-old female. Alert and oriented. Nontoxic appearing and in no acute distress. HEENT: Atraumatic, normocephalic, pupils equal and reactive bilaterally, negative for conjunctival pallor or scleral icterus, mucous membranes moist, TMs normal bilaterally, throat clear, neck supple, nontender, trachea midline. No drooling or trismus noted. No meningeal signs. No hot potato voice noted. Lungs: Clear to auscultation, breath sounds equal bilaterally, chest nontender. Heart: S1S2, regular rate and rhythm without overt murmur Abdomen: Soft, nondistended, obese, mild right lower quadrant tenderness. Negative for masses or hepatosplenomegaly. Mild right costovertebral tenderness. Pelvis: Stable nontender. Skin: Intact, warm, dry. No lesions or rashes noted. Extremities: Atraumatic, moves all extremities per self without difficulty or deficits, negative for cords or calf pain. Neurovascular unremarkable. Neuro: Awake, alert, oriented. Cranial nerves II through XII unremarkable. Cerebellum unremarkable. Motor and sensory unremarkable throughout. Exam nonfocal. Notes: CT shows no acute findings. Cholecystectomy and hysterectomy are noted. Lab work is unremarkable. Patient is unable to give a stool sample while here. Supplies and outpatient lab orders were sent with the patient with education. Patient is already on multiple pain medications at home. We'll give her a few tablets of Bentyl. She needs to follow up with primary care or GI specialist if this continues. Supportive care measures were reviewed and discussed. Voices understanding and is agreeable to plan of care. Denies any further questions or concerns at this time. Diagnostics: CBC, CMP, Lipase, UA, CT abd/pelvis Therapeutics: IV fluids, Toradol Prescription: Outpatient Stool Studies Impression: Abdominal pain Diarrhea Plan: 1. [place] diet over the next 24-48 hours. Increase foods as tolerated. Make sure you're drinking plenty of fluids to prevent dehydration. 2. Outpatient stool studies (prescription sent with you/supplies) have been ordered. He may bring the sample to the outpatient lab. Results will be called to you if it requires any additional treatment. 3. Follow-up with your primary care provider as we discussed. Return to the ED as needed and as discussed. Definitive disposition and diagnosis as appropriate pending reevaluation and review of above. abd , lower back Pain Score (Numeric/FACES): 9 - Related Data Allergies Allergy/AdvReac Type Severity Reaction Status Date / Time prednisone Allergy Mild Nausea Verified 11/10/18 11:29 cortisone Allergy Stomach Verified 11/10/18 11:29 Upset doxycycline Allergy Hives Verified 11/10/18 11:29 morphine Allergy Itching Verified 11/10/18 11:29 Home Meds: Home Meds Aspirin [Adeel Chewable Aspirin] 81 mg PO DAILY 07/26/14 [History] Nitroglycerin [Nitrostat] 1 tab SL ASDIRECTED PRN 03/04/15 [History] Apixaban [Eliquis] 5 mg PO BID 01/21/17 [History] Gabapentin [Neurontin] 600 mg PO TID 01/21/17 [History] Insulin Detemir [Levemir] 75 units SQ BID 01/21/17 [History] Albuterol Sulfate 1 unit NEB ASDIRECTED PRN 07/18/17 [History] Diltiazem HCl [Dilt-Xr] 180 mg PO DAILY 07/18/17 [History] Fenofibrate Nanocrystallized [Fenofibrate] 145 mg PO DAILY 07/18/17 [History] Lisinopril 5 mg PO DAILY 07/18/17 [History] Magnesium Oxide [Magnesium] 400 mg PO DAILY 07/18/17 [History] Metoprolol Succinate 25 mg PO DAILY 07/18/17 [History] atorvaSTATin Calcium [Atorvastatin Calcium] 40 mg PO BEDTIME 07/18/17 [History] traMADol [Ultram] 2 tab PO TID PRN 07/18/17 [History] Albuterol Sulfate [Proair Hfa] 2 puff INH QID PRN 11/07/17 [History] Isosorbide Mononitrate [Isosorbide Mononitrate ER] 30 mg PO DAILY 11/07/17 [ History] Omeprazole 20 mg PO DAILY 11/07/17 [History] Oxymetazoline [Afrin Original 0.05% Nasal [place]] 1 spray NASBOTH ASDIRECTED [History] Insulin Aspart [NovoLOG] 250 units SUBCUT ASDIRECTED 06/19/18 [History] Liraglutide [Victoza] 1.8 ng SUBCUT DAILY 06/19/18 [History] Sucralfate 1 gm PO QID 06/19/18 [History] Ondansetron [Zofran] 4 mg PO ASDIRECTED PRN 07/17/18 [History] Acetaminophen/HYDROcodone [[place] 325-5 MG] 1 tab PO Q4H PRN #30 tablet 07/20/18 [Rx] Dicyclomine [Bentyl] 10 mg PO TID PRN 5 Days #15 cap 11/10/18 [Rx] Past Medical History HEENT History: Reports: Glaucoma, Impaired Vision, Other (See Below) Other HEENT History: needs glasses but doesnt wear them Cardiovascular History: Reports: Angina, High Cholesterol, Hypertension, CT, Stents, Other (See Below) Other Cardiovascular History: hx of CT with cardiac stenting Respiratory History: Reports: Asthma, Bronchitis, Recurrent, COPD, Pneumonia, Recurrent Other Respiratory History: COPD with Nebulizer treatments and inhaler - better since she stoped smoking 01/28, Hx of bronchitis annd pneumonia Gastrointestinal History: Reports: GERD, Hiatal Hernia Genitourinary History: Reports: None [employer]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: Musculoskeletal History: Reports: Arthritis Other Musculoskeletal History: rt leg below the knee amputation Neurological History: Reports: Headaches, Chronic, Neuropathy, Diabetic, Other ( See Below) Other Neuro History: hx: Headaches Psychiatric History: Reports: None Endocrine/Metabolic History: Reports: Diabetes, Type II, Obesity/BMI 30+ Hematologic History: Reports: Anemia, Blood Transfusion(s) Immunologic History: Reports: None Oncologic (Cancer) History: Reports: None Dermatologic History: Reports: None - Infectious Disease History Infectious Disease History: Reports: None - Past Surgical History Head Surgeries/Procedures: Reports: None HEENT Surgical History: Reports: Myringotomy w Tube(s) Other HEENT Surgeries/Procedures: tube placement Cardiovascular Surgical History: Reports: Coronary Artery Stent Other Cardiovascular Surgeries/Procedures: 2014 Respiratory Surgical History: Reports: None GI Surgical History: Reports: Cholecystectomy, Colonoscopy, EGD Female Surgical History: Reports: Hysterectomy Endocrine Surgical History: Reports: None Neurological Surgical History: Reports: None Musculoskeletal Surgical History: Reports: Amputation, Carpal Tunnel Other Musculoskeletal Surgeries/Procedures:: R below the knee amputation Oncologic Surgical History: Reports: None Dermatological Surgical History: Reports: None Social & Family History - Family History Family Medical History: Noncontributory HEENT: Reports: Cataract, Impaired Vision, Otitis Media, Sinusitis Cardiac: Reports: High Cholesterol, Hypertension, CT Other Cardiac Family History: heart problems maternal and paternal sides Respiratory: Reports: Asthma, COPD, Sleep Apnea GI: Reports: None Musculoskeletal: Reports: Arthritis, Gout Neurological: Reports: CVA Psychiatric: Reports: None Endocrine/Metabolic: Reports: Diabetes, Type I, Diabetes, type II, Hyperthyroidism, Obesity/MBI 30+ Hematologic: Reports: Anemia Oncologic: Reports: Lung - Tobacco Use Smoking Status *Q: Former Smoker Used Tobacco, but Quit: Yes Month/Year Tobacco Last Used: 2 years - Caffeine Use Caffeine Use: Reports: Soda Caffeine Use Comment: "sometimes" - Recreational Drug Use Recreational Drug Use: No ED ROS GENERAL - Review of Systems Review Of Systems: ROS reveals no pertinent complaints other than HPI. ED EXAM, RENAL/ - Physical Exam Exam: See Below (See dictation) Course - Vital Signs Last Recorded V/S: Last Vital Signs Temp 98.3 F 11/10/18 11:29 Pulse 85 11/10/18 11:29 Resp 20 11/10/18 11:29 BP 166/91 H 11/10/18 11:29 Pulse Ox 97 11/10/18 11:29 - Orders/Labs/Meds Orders: Active Orders 24 hr Category Date Time Status CDIFF TOX A+B [OP] Stat Lab 11/10/18 11:34 Ordered CULTURE STOOL + CAMPY+SHIGATOX [RM] Stat Lab 11/10/18 11:34 Ordered OVA & PARASITES BY IMMUNOASSAY [MREF] Stat Lab 11/10/18 11:34 Ordered Labs: Laboratory Tests 11/10/18 11/10/18 11/10/18 Range/Units 11:44 11:44 11:50 WBC 6.48 (4.0-11.0) K/uL RBC 4.92 (4.30-5.90) M/uL Hgb 13.4 (12.0-16.0) g/dL Hct 41.2 (36.0-46.0) % MCV 83.7 (80.0-98.0) fL MCH 27.2 (27.0-32.0) pg MCHC 32.5 (31.0-37.0) g/dL RDW Std Deviation 46.1 (28.0-62.0) fl RDW Coeff of Demond 15 (11.0-15.0) % Plt Count 264 (150-400) K/uL MPV 11.00 (7.40-12.00) fL Neut % (Auto) 69.1 (48.0-80.0) % Lymph % (Auto) 23.6 (16.0-40.0) % [place] % (Auto) 6.8 (0.0-15.0) % Eos % (Auto) 0.3 (0.0-7.0) % Baso % (Auto) 0.2 (0.0-1.5) % Neut # (Auto) 4.5 (1.4-5.7) K/uL Lymph # (Auto) 1.5 (0.6-2.4) K/uL [place] # (Auto) 0.4 (0.0-0.8) K/uL Eos # (Auto) 0.0 (0.0-0.7) K/uL Baso # (Auto) 0.0 (0.0-0.1) K/uL Nucleated RBC % 0.0 /100WBC Nucleated RBCs # 0 K/uL Sodium 139 (136-145) mmol/L Potassium 4.3 (3.5-5.1) mmol/L Chloride 103 (98-107) mmol/L Carbon Dioxide 25.2 (21.0-32.0) mmol/L BUN 8 (7.0-18.0) mg/dL Creatinine 0.8 (0.6-1.0) mg/dL Est Cr Clr Drug Dosing 80.75 mL/min Estimated GFR (MDRD) > 60.0 ml/min Glucose 232 H (74-106) mg/dL Calcium 9.5 (8.5-10.1) mg/dL Total Bilirubin 0.2 (0.2-1.0) mg/dL AST 24 (15-37) IU/L ALT 29 (14-63) IU/L Alkaline Phosphatase 46 (46-116) U/L Total Protein 7.0 (6.4-8.2) g/dL Albumin 3.3 L (3.4-5.0) g/dL Globulin 3.7 (2.6-4.0) g/dL Albumin/Globulin Ratio 0.9 (0.9-1.6) Lipase 181 (73-393) U/L Urine Color YELLOW Urine Appearance CLEAR Urine pH 6.5 (5.0-8.0) Ur Specific [place] 1.020 (1.001-1.035) Urine Protein NEGATIVE (NEGATIVE) mg/dL Urine Glucose (UA) 500 H (NEGATIVE) mg/dL Urine Ketones NEGATIVE (NEGATIVE) mg/dL Urine Occult Blood NEGATIVE (NEGATIVE) Urine Nitrite NEGATIVE (NEGATIVE) Urine Bilirubin NEGATIVE (NEGATIVE) Urine Urobilinogen 0.2 (<2.0) EU/dL Ur Leukocyte Esterase NEGATIVE (NEGATIVE) Meds: Medications Discontinued Medications Generic Name Dose Route Start Last Admin Trade Name Freq PRN Reason Stop Dose Admin Dicyclomine HCl 10 mg 11/10/18 13:37 11/10/18 13:42 Bentyl PO 11/10/18 13:38 10 mg ONETIME ONE Administration Sodium Chloride 1,000 mls @ 999 mls/hr 11/10/18 11:34 11/10/18 11:58 Normal Saline IV 11/10/18 12:34 999 mls/hr STAT ONE Administration Iopamidol 100 ml 11/10/18 12:59 11/10/18 13:00 Isovue-370 (76%) IVPUSH 11/10/18 13:00 100 ml ONETIME STA Administration Ketorolac Tromethamine 30 mg 11/10/18 11:43 11/10/18 11:59 Toradol IVPUSH 11/10/18 11:44 30 mg ONETIME ONE Administration Departure - Departure Time of Disposition: 13:50 Disposition: Home, Self-Care 01 Clinical Impression: Abdominal pain Qualifiers: Abdominal location: right lower quadrant Qualified Code(s): R10.31 - Right lower quadrant pain Diarrhea Qualifiers: Diarrhea type: unspecified type Qualified Code(s): R19.7 - Diarrhea, unspecified - Discharge Information Prescriptions: Dicyclomine [Bentyl] 10 mg PO TID PRN 5 Days #15 cap PRN Reason: Abdominal Pain Instructions: Abdominal Pain, Adult, [id number] Referrals: PCP,Unknown [Primary Care Provider] - Forms: ED Department Discharge Additional Instructions: The following information is given to patients seen in the emergency department who are being discharged to home. This information is to outline your options for follow-up care. We provide all patients seen in our emergency department with a follow-up referral. The need for follow-up, as well as the timing and circumstances, are variable depending upon the specifics of your emergency department visit. If you don't have a primary care physician on staff, we will provide you with a referral. We always advise you to contact your personal physician following an emergency department visit to inform them of the circumstance of the visit and for follow-up with them and/or the need for any referrals to a consulting specialist. The emergency department will also refer you to a specialist when appropriate. This referral assures that you have the opportunity for follow-up care with a specialist. All of these measure are taken in an effort to provide you with optimal care, which includes your follow-up. Under all circumstances we always encourage you to contact your private physician who remains a resource for coordinating your care. When calling for follow-up care, please make the office aware that this follow-up is from your recent emergency room visit. If for any reason you are refused follow-up, please contact the [facility] Emergency Department at and asked to speak to the emergency department charge nurse. [facility] [address] [place] [address] [facility] [address] [place] [address] 1. [place] diet over the next 24-48 hours. Increase foods as tolerated. Make sure you're drinking plenty of fluids to prevent dehydration. 2. Outpatient stool studies (prescription sent with you/supplies) have been ordered. He may bring the sample to the outpatient lab. Results will be called to you if it requires any additional treatment. 3. Follow-up with your primary care provider as we discussed. Return to the ED as needed and as discussed. - My Orders Last 24 Hours: My Active Orders 11/10/18 11:34 CDIFF TOX A+B [OP] Stat CULTURE STOOL + CAMPY+SHIGATOX [RM] Stat OVA & PARASITES BY IMMUNOASSAY [MREF] Stat - Assessment/Plan Last 24 Hours: My Active Orders 11/10/18 11:34 CDIFF TOX A+B [OP] Stat CULTURE STOOL + CAMPY+SHIGATOX [RM] Stat OVA & PARASITES BY IMMUNOASSAY [MREF] Stat
[2018-11-10] MEDS ORDERED: Ketorolac 30 MG/ML SDV IVPUSH ONE (11:43)
[2018-11-10 12:16] LABS: CHLORIDE,CL 103 mmol/L (98-107); SODIUM,NA 139 mmol/L (136-145)
[2018-11-10] MEDS ORDERED: Iopamidol 755 Mg/ML 100 ML Bottle IVPUSH STA (12:59)
[2018-11-10] MEDS ORDERED: Dicyclomine 10 MG Cap PO ONE (13:37)
--- NOTE | 2018-11-10 13:47 | CT ---
INDICATION: Abdominal pain. TECHNIQUE: CT of the abdomen and pelvis performed after IV injection of 100 mL of Isovue-370. FINDINGS: Marked diffuse fatty injection of liver stable. Cholecystectomy. Small periumbilical fat containing anterior abdominal wall hernia. Hysterectomy with minimal stranding in the mid and lower pelvic fat which may be postoperative. The left ovary is mildly heterogeneous and contains a few cystic lesions. Linear calcification or postoperative change along the left adnexa. Soft tissue stranding just beneath the skin surface in the anterior pelvic wall with overlying moderate skin thickening likely related to inflammation or edema. Remainder negative. IMPRESSION: 1. No acute disease in the abdomen or pelvis. 2. Cholecystectomy and hysterectomy. Other findings as above. Please note that all CT scans at this facility use dose modulation, iterative reconstruction, and/or weight-based dosing when appropriate to reduce radiation dose to as low as reasonably achievable. Dictated by Brad Christianson MD @ Nov 10 2018 1:45PM Signed by Dr. Brad Christianson @ Nov 10 2018 1:45PM
[2018-11-10 14:08] VITALS: BP 116/64
== END 2018-11-10 14:10 | disposition home or self-care (01) ==
LOC: MW.ED 11:14
DX: R19.7 Diarrhea, unspecified (principal); R10.31 Right lower quadrant pain; I10 Essential (primary) hypertension; E78.00 Pure hypercholesterolemia, unspecified; I25.2 Old myocardial infarction; J44.9 Chronic obstructive pulmonary disease, unspecified; K21.9 Gastro-esophageal reflux disease without esophagitis; E11.9 Type 2 diabetes mellitus without complications; E11.40 Type 2 diabetes mellitus with diabetic neuropathy, unspecified; Z79.82 Long term (current) use of aspirin; Z79.4 Long term (current) use of insulin; Z79.899 Other long term (current) drug therapy; Z88.8 Allergy status to other drugs, medicaments and biological substances; Z88.5 Allergy status to narcotic agent; Z88.1 Allergy status to other antibiotic agents; Z87.891 Personal history of nicotine dependence
CPT/HCPCS: 36415; 74177; 80053; 81003; 83690; 85025; 87046; 87177; 87324; 96361; 96374; 99284; A9270; J1885; J7040; Q9967; 87328; 87329; 87899

== ENCOUNTER 2019-01-26 15:31 | Emergency (ER) | payer MEDICAID ==
--- NOTE | 2019-01-26 15:51 | EDM.PDOC ---
ED HPI GENERAL MEDICAL PROBLEM - General Chief Complaint: Genitourinary Problem Stated Complaint: BLADDER INFECTION Time Seen by Provider: 01/26/19 15:34 Source of Information: Reports: Patient History Limitations: Reports: No Limitations - History of Present Illness INITIAL COMMENTS - FREE TEXT/NARRATIVE: HISTORY AND PHYSICAL: History of present illness: Patient is a 43-year-old female who presents to the emergency room with complaints of dysuria and frequency over the past 24 hours. She did notice some blood in her urine today and persistent nausea -she is concerned she has a bladder infection. On a secondary note she states that she has been having chest pain for the last 4 or 5 days. She recently saw her metal baler for this and states her medications were adjusted. She states the pain is not "really different" but wanted to mention it since she is being evaluated here. Describes the chest pain as a dull intermittent ache. Patient denies any fever, chills, headache, change in vision, syncope or near syncope. Denies any back pain, shortness of breath or cough. Denies any vomiting, diarrhea, constipation or dysuria. Has not noted any blood in stool. Patient has been eating and drinking appropriately. Review of systems: As per history of present illness and below otherwise all systems reviewed and negative. Past medical history: As per history of present illness and as reviewed below otherwise noncontributory. Surgical history: As per history of present illness and as reviewed below otherwise noncontributory. Social history: See social history for further information Family history: As per history of present illness and as reviewed below otherwise noncontributory. Physical exam: General: Well developed and well nourished 43-year-old female. Alert and oriented. Nontoxic appearing and in no acute distress. HEENT: Atraumatic, normocephalic, pupils equal and reactive bilaterally, negative for conjunctival pallor or scleral icterus, mucous membranes moist, trachea midline. No drooling or trismus noted. No meningeal signs. No hot potato voice noted. Lungs: Clear to auscultation, breath sounds equal bilaterally, chest nontender. Heart: S1S2, regular rate and rhythm without overt murmur Abdomen: Soft, nondistended, nontender. Negative for masses or hepatosplenomegaly. Negative for costovertebral tenderness. Pelvis: Stable. Suprapubic tenderness with palpation. Skin: Intact, warm, dry. No lesions or rashes noted. Extremities: Atraumatic, moves all extremities per self without difficulty or deficits, negative for cords or calf pain. Neurovascular unremarkable. Neuro: Awake, alert, oriented. Cranial nerves II through XII unremarkable. Cerebellum unremarkable. Motor and sensory unremarkable throughout. Exam nonfocal. Notes: Lab work is unremarkable with the exception of her UTI with hematuria. She does not have any appreciable flank pain. She is tolerating fluids and has no fevers. EKG shows no acute findings, sinus rhythm with rate of 86. Will give rocephin while here. Supportive care measures were reviewed and discussed. Voices understanding and is agreeable to plan of care. Denies any further questions or concerns at this time. Diagnostics: CBC, CMP, UA, CXR, Troponin, EKG Therapeutics: IV fluids, Zofran, Rocephin Prescription: Cipro, Pyridium Impression: UTI Nonspecific chest pain Plan: 1. Increase your oral fluids. Take the medications as prescribed. 2. Tylenol and/or ibuprofen as needed for pain management. 3. Follow-up with your primary care provider as we discussed. Return to the ED as needed and as discussed. Definitive disposition and diagnosis as appropriate pending reevaluation and review of above. Chest Pain Score (Numeric/FACES): 5 - Related Data Allergies Allergy/AdvReac Type Severity Reaction Status Date / Time prednisone Allergy Mild Nausea Verified 11/10/18 11:29 cortisone Allergy Stomach Verified 11/10/18 11:29 Upset doxycycline Allergy Hives Verified 11/10/18 11:29 morphine Allergy Itching Verified 11/10/18 11:29 Home Meds: Home Meds Aspirin [Adeel Chewable Aspirin] 81 mg PO DAILY 07/26/14 [History] Nitroglycerin [Nitrostat] 1 tab SL ASDIRECTED PRN 03/04/15 [History] Apixaban [Eliquis] 5 mg PO BID 01/21/17 [History] Gabapentin [Neurontin] 600 mg PO TID 01/21/17 [History] Insulin Detemir [Levemir] 75 units SQ BID 01/21/17 [History] Albuterol Sulfate 1 unit NEB ASDIRECTED PRN 07/18/17 [History] Diltiazem HCl [Dilt-Xr] 180 mg PO DAILY 07/18/17 [History] Fenofibrate Nanocrystallized [Fenofibrate] 145 mg PO DAILY 07/18/17 [History] Lisinopril 5 mg PO DAILY 07/18/17 [History] Magnesium Oxide [Magnesium] 400 mg PO DAILY 07/18/17 [History] Metoprolol Succinate 25 mg PO DAILY 07/18/17 [History] atorvaSTATin Calcium [Atorvastatin Calcium] 40 mg PO BEDTIME 07/18/17 [History] traMADol [Ultram] 2 tab PO TID PRN 07/18/17 [History] Albuterol Sulfate [Proair Hfa] 2 puff INH QID PRN 11/07/17 [History] Isosorbide Mononitrate [Isosorbide Mononitrate ER] 30 mg PO DAILY 11/07/17 [ History] Omeprazole 20 mg PO DAILY 11/07/17 [History] Oxymetazoline [Afrin Original 0.05% Nasal [place]] 1 spray NASBOTH ASDIRECTED [History] Insulin Aspart [NovoLOG] 250 units SUBCUT ASDIRECTED 06/19/18 [History] Liraglutide [Victoza] 1.8 ng SUBCUT DAILY 06/19/18 [History] Sucralfate 1 gm PO QID 06/19/18 [History] Ondansetron [Zofran] 4 mg PO ASDIRECTED PRN 07/17/18 [History] Acetaminophen/HYDROcodone [Davis 325-5 MG] 1 tab PO Q4H PRN #30 tablet 07/20/18 [Rx] Dicyclomine [Bentyl] 10 mg PO TID PRN 5 Days #15 cap 11/10/18 [Rx] Ciprofloxacin HCl [Cipro] 500 mg PO BID 7 Days #14 tablet 01/26/19 [Rx] Phenazopyridine [Pyridium] 100 mg PO TID 2 Days #6 tab 01/26/19 [Rx] Past Medical History HEENT History: Reports: Glaucoma, Impaired Vision, Other (See Below) Other HEENT History: needs glasses but doesnt wear them Cardiovascular History: Reports: Angina, High Cholesterol, Hypertension, NC, Stents, Other (See Below) Other Cardiovascular History: hx of NC with cardiac stenting Respiratory History: Reports: Asthma, Bronchitis, Recurrent, COPD, Pneumonia, Recurrent Other Respiratory History: COPD with Nebulizer treatments and inhaler - better since she stoped smoking 01/28, Hx of bronchitis annd pneumonia Gastrointestinal History: Reports: GERD, Hiatal Hernia Genitourinary History: Reports: None [employer] History: Reports: Musculoskeletal History: Reports: Arthritis Other Musculoskeletal History: rt leg below the knee amputation Neurological History: Reports: Headaches, Chronic, Neuropathy, Diabetic, Other ( See Below) Other Neuro History: hx: Headaches Psychiatric History: Reports: None Endocrine/Metabolic History: Reports: Diabetes, Type II, Obesity/BMI 30+ Hematologic History: Reports: Anemia, Blood Transfusion(s) Immunologic History: Reports: None Oncologic (Cancer) History: Reports: None Dermatologic History: Reports: None - Infectious Disease History Infectious Disease History: Reports: None - Past Surgical History Head Surgeries/Procedures: Reports: None HEENT Surgical History: Reports: Myringotomy w Tube(s) Other HEENT Surgeries/Procedures: tube placement Cardiovascular Surgical History: Reports: Coronary Artery Stent Other Cardiovascular Surgeries/Procedures: 2014 Respiratory Surgical History: Reports: None GI Surgical History: Reports: Cholecystectomy, Colonoscopy, EGD Female Surgical History: Reports: Hysterectomy Endocrine Surgical History: Reports: None Neurological Surgical History: Reports: None Musculoskeletal Surgical History: Reports: Amputation, Carpal Tunnel Other Musculoskeletal Surgeries/Procedures:: R below the knee amputation Oncologic Surgical History: Reports: None Dermatological Surgical History: Reports: None Social & Family History - Family History Family Medical History: Noncontributory HEENT: Reports: Cataract, Impaired Vision, Otitis Media, Sinusitis Cardiac: Reports: High Cholesterol, Hypertension, NC Other Cardiac Family History: heart problems maternal and paternal sides Respiratory: Reports: Asthma, COPD, Sleep Apnea GI: Reports: None Musculoskeletal: Reports: Arthritis, Gout Neurological: Reports: CVA Psychiatric: Reports: None Endocrine/Metabolic: Reports: Diabetes, Type I, Diabetes, type II, Hyperthyroidism, Obesity/MBI 30+ Hematologic: Reports: Anemia Oncologic: Reports: Lung - Caffeine Use Caffeine Use: Reports: Soda Caffeine Use Comment: "sometimes" ED ROS GENERAL - Review of Systems Review Of Systems: Comprehensive ROS is negative, except as noted in HPI. ED EXAM, RENAL/ - Physical Exam Exam: See Below (See dictation) Course - Vital Signs Last Recorded V/S: Last Vital Signs Temp 97.2 F 01/26/19 15:54 Pulse 88 01/26/19 15:54 Resp 16 01/26/19 15:54 BP 128/75 01/26/19 15:54 Pulse Ox 97 01/26/19 15:54 - Orders/Labs/Meds Orders: Active Orders 24 hr Category Date Time Status EKG Documentation Completion [RC] STAT Care 01/26/19 15:50 Active CULTURE URINE [RM] Stat Lab 01/26/19 16:00 Received Sodium Chloride 0.9% [Normal Saline] 1,000 ml Med 01/26/19 16:28 Active IV STAT Medication Orders Sodium Chloride (Normal Saline) 1,000 mls @ 999 mls/hr IV STAT ONE Stop: 01/26/19 17:28 Last Admin: 01/26/19 16:37 Dose: 999 mls/hr Labs: Laboratory Tests 01/26/19 01/26/19 01/26/19 Range/Units 16:00 16:00 16:00 WBC 9.17 (4.0-11.0) K/uL RBC 4.67 (4.30-5.90) M/uL Hgb 12.6 (12.0-16.0) g/dL Hct 39.3 (36.0-46.0) % MCV 84.2 (80.0-98.0) fL MCH 27.0 (27.0-32.0) pg MCHC 32.1 (31.0-37.0) g/dL RDW Std Deviation 44.7 (28.0-62.0) fl RDW Coeff of Demond 15 (11.0-15.0) % Plt Count 300 (150-400) K/uL MPV 11.10 (7.40-12.00) fL Neut % (Auto) 66.4 (48.0-80.0) % Lymph % (Auto) 26.7 (16.0-40.0) % Dunn % (Auto) 6.3 (0.0-15.0) % Eos % (Auto) 0.4 (0.0-7.0) % Baso % (Auto) 0.2 (0.0-1.5) % Neut # (Auto) 6.1 H (1.4-5.7) K/uL Lymph # (Auto) 2.5 H (0.6-2.4) K/uL Dunn # (Auto) 0.6 (0.0-0.8) K/uL Eos # (Auto) 0.0 (0.0-0.7) K/uL Baso # (Auto) 0.0 (0.0-0.1) K/uL Nucleated RBC % 0.0 /100WBC Nucleated RBCs # 0 K/uL Sodium 137 (136-145) mmol/L Potassium 4.0 (3.5-5.1) mmol/L Chloride 102 (98-107) mmol/L Carbon Dioxide 24.5 (21.0-32.0) mmol/L BUN 12 (7.0-18.0) mg/dL Creatinine 1.0 (0.6-1.0) mg/dL Est Cr Clr Drug Dosing 61.99 mL/min Estimated GFR (MDRD) > 60.0 ml/min Glucose 149 H (74-106) mg/dL Calcium 8.6 (8.5-10.1) mg/dL Total Bilirubin 0.3 (0.2-1.0) mg/dL AST 19 (15-37) IU/L ALT 32 (14-63) IU/L Alkaline Phosphatase 41 L (46-116) U/L Troponin I < 0.050 (0.000-0.056) ng/mL Total Protein 7.1 (6.4-8.2) g/dL Albumin 3.5 (3.4-5.0) g/dL Globulin 3.6 (2.6-4.0) g/dL Albumin/Globulin Ratio 1.0 (0.9-1.6) Urine Color YELLOW Urine Appearance SLT CLOUDY Urine pH 5.5 (5.0-8.0) Ur Specific [place] >= 1.030 (1.001-1.035) Urine Protein 30 H (NEGATIVE) mg/dL Urine Glucose (UA) 100 H (NEGATIVE) mg/dL Urine Ketones NEGATIVE (NEGATIVE) mg/dL Urine Occult Blood LARGE H (NEGATIVE) Urine Nitrite POSITIVE H (NEGATIVE) Urine Bilirubin NEGATIVE (NEGATIVE) Urine Urobilinogen 0.2 (<2.0) EU/dL Ur Leukocyte Esterase MODERATE H (NEGATIVE) Urine RBC TOO NUMEROUS TO CT H (0-2/HPF) Urine WBC 30-35 (0-5/HPF) Ur Epithelial Cells FEW (NONE-FEW) Urine Bacteria 3+ H (NEGATIVE) Urine Mucus LIGHT (NONE-MOD) Meds: Medications Generic Name Dose Route Start Last Admin Trade Name Fredavid PRN Reason Stop Dose Admin Sodium Chloride 1,000 mls @ 999 mls/hr 01/26/19 16:28 01/26/19 16:37 Normal Saline IV 01/26/19 17:28 999 mls/hr STAT ONE Administration Discontinued Medications Generic Name Dose Route Start Last Admin Trade Name Raffaeleq PRN Reason Stop Dose Admin Ceftriaxone Sodium/Dextrose 1 50 mls @ 100 mls/hr 01/26/19 16:21 01/26/19 16: 37 gm/ Premix IV 01/26/19 16:50 100 mls/hr ONETIME ONE Administration Ondansetron HCl 4 mg 01/26/19 16:28 01/26/19 16:37 Zofran IVPUSH 01/26/19 16:29 4 mg ONETIME ONE Administration Departure - Departure Time of Disposition: 16:54 Disposition: Home, Self-Care 01 Clinical Impression: UTI, Urinary tract infectious disease, Nonspecific chest pain - Discharge Information Prescriptions: Ciprofloxacin HCl [Cipro] 500 mg PO BID 7 Days #14 tablet Phenazopyridine [Pyridium] 100 mg PO TID 2 Days #6 tab Referrals: Con Lynch MD [Primary Care Provider] - Forms: ED Department Discharge Additional Instructions: The following information is given to patients seen in the emergency department who are being discharged to home. This information is to outline your options for follow-up care. We provide all patients seen in our emergency department with a follow-up referral. The need for follow-up, as well as the timing and circumstances, are variable depending upon the specifics of your emergency department visit. If you don't have a primary care physician on staff, we will provide you with a referral. We always advise you to contact your personal physician following an emergency department visit to inform them of the circumstance of the visit and for follow-up with them and/or the need for any referrals to a consulting specialist. The emergency department will also refer you to a specialist when appropriate. This referral assures that you have the opportunity for follow-up care with a specialist. All of these measure are taken in an effort to provide you with optimal care, which includes your follow-up. Under all circumstances we always encourage you to contact your private physician who remains a resource for coordinating your care. When calling for follow-up care, please make the office aware that this follow-up is from your recent emergency room visit. If for any reason you are refused follow-up, please contact the [facility] at and asked to speak to the emergency department charge nurse. [facility] [address] [place] [address] [facility] [address] [place] [id number] 1. Increase your oral fluids. Take the medications as prescribed. 2. Tylenol and/or ibuprofen as needed for pain management. 3. Follow-up with your primary care provider as we discussed. Return to the ED as needed and as discussed. - My Orders Last 24 Hours: My Active Orders 01/26/19 15:50 EKG Documentation Completion [RC] STAT 01/26/19 16:00 CULTURE URINE [RM] Stat 01/26/19 16:28 Sodium Chloride 0.9% [Normal Saline] 1,000 ml IV STAT - Assessment/Plan Last 24 Hours: My Active Orders 01/26/19 15:50 EKG Documentation Completion [RC] STAT 01/26/19 16:00 CULTURE URINE [RM] Stat 01/26/19 16:28 Sodium Chloride 0.9% [Normal Saline] 1,000 ml IV STAT
--- NOTE | 2019-01-26 16:20 | CR ---
Indication: Chest pain for 1 week. Technique: A single AP portable view of the chest was obtained. Comparison: July 07, 2018. Findings: The heart is normal in size. The lungs are clear. No infiltrate, pleural effusion, or pneumothorax is identified. Impression: No acute cardiopulmonary process. Dictated by Beth Marsh MD @ Jan 26 2019 4:18PM Signed by Dr. Beth Marsh @ Jan 26 2019 4:18PM
[2019-01-26] MEDS ORDERED: cefTRIAXone 1 GM in Premix Bag 1 BAG IV ONE (16:21)
[2019-01-26] MEDS ORDERED: Sodium Chloride 0.9% 1,000 ML IV ONE (16:28)
[2019-01-26] MEDS ORDERED: Ondansetron 4 MG/2 ML SDV IVPUSH ONE (16:28)
[2019-01-26 16:38] LABS: BLOOD UREA NITROGEN,BUN 12 mg/dL (7.0-18.0); CARBON DIOXIDE,CO2 24.5 mmol/L (21.0-32.0); CHLORIDE,CL 102 mmol/L (98-107); GLUCOSE RANDOM 149 mg/dL (74-106); SODIUM,NA 137 mmol/L (136-145)
[2019-01-26 19:58] VITALS: BP 149/80; PULSE 82
== END 2019-01-26 17:27 | disposition home or self-care (01) ==
LOC: MW.ED 15:31
DX: N39.0 Urinary tract infection, site not specified (principal); R07.9 Chest pain, unspecified; I10 Essential (primary) hypertension; E11.40 Type 2 diabetes mellitus with diabetic neuropathy, unspecified; E78.00 Pure hypercholesterolemia, unspecified; I25.2 Old myocardial infarction; J44.9 Chronic obstructive pulmonary disease, unspecified; K21.9 Gastro-esophageal reflux disease without esophagitis; M19.90 Unspecified osteoarthritis, unspecified site; E66.9 Obesity, unspecified; Z68.38 Body mass index [BMI] 38.0-38.9, adult; Z95.5 Presence of coronary angioplasty implant and graft; Z88.5 Allergy status to narcotic agent; Z88.8 Allergy status to other drugs, medicaments and biological substances; Z79.82 Long term (current) use of aspirin; Z79.4 Long term (current) use of insulin; Z79.899 Other long term (current) drug therapy
CPT/HCPCS: 36415; 71045; 80053; 81001; 84484; 85025; 87086; 87088; 87186; 93005; 96365; 96375; 99284; J0696; J2405; J7040; 99283; J7030

== ENCOUNTER 2019-03-25 09:01 | Observation (INO) | payer MEDICAID ==
[2019-03-25] MEDS ORDERED: Sodium Chloride 0.9% 2.5 ML Syringe FLUSH PRN (09:05)
[2019-03-25] MEDS ORDERED: Acetaminophen 325 MG Tab PO PRN (09:05)
[2019-03-25] MEDS ORDERED: Ondansetron 4 MG/2 ML SDV IVPUSH PRN (09:05)
[2019-03-25] MEDS ORDERED: Sodium Chloride 0.9% 500 ML IV SCH (11:15)
--- NOTE | 2019-03-25 11:31 | PCM.HP.2 ---
H&P History of Present Illness - General Date of Service: 03/25/19 Admit Problem/Dx: Admission Diagnosis/Problem Admission Diagnosis/Problem Dyspnea Source of Information: Patient History Limitations: Reports: No Limitations - History of Present Illness Initial Comments - Free Text/Narative: THis 44 year old female with pmh of CAD with stenting, Dm Type 2, HLD, HX R BKA presented to the Cardiology clinic today with complaints of chest pain, dyspnea and nausea. Direct admission recommended for possible COPD exacerbation and influenza. Gabriella reports she started feeling ill over the weekend with poor appetite, coughing that is non productive, mild sore throat and L ear pain, which is now gone. She reports doing anything causes her to be short of breath and then causing some chest pain that covers her entire chest. Chest pain does not radiate. In the clinic she was dry heaving and vomited. She reports her BS have been uncontrolled since getting ill and have been ranging from low to very high 500s. She reports she has Cardiac cath scheduled April for evaluation of CAD after stress test with Dr gN here. Denied fevers, mild chills at home. No sinus congestion. No abdominal pain, dysuria or diarrhea. Labwork obtained revealed no leukocytosis noted. CXR negative. EKG SR with no ST elevation. She will be admitted for acute URI viral infection and chest pain rule out ACS. - Related Data Allergies/Adverse Reactions: Allergies Allergy/AdvReac Type Severity Reaction Status Date / Time doxycycline Allergy Hives Verified 03/25/19 10:25 morphine Allergy Itching Verified 03/25/19 10:25 Home Medications: Home Meds Aspirin [Adeel Chewable Aspirin] 81 mg PO DAILY 07/26/14 [History] Apixaban [Eliquis] 5 mg PO BID 01/21/17 [History] Gabapentin [Neurontin] 600 mg PO TID 01/21/17 [History] Insulin Detemir [Levemir] 40 units SQ BID 01/21/17 [History] Albuterol Sulfate 1 unit NEB Q6H PRN 07/18/17 [History] Diltiazem HCl [Dilt-Xr] 180 mg PO DAILY 07/18/17 [History] Fenofibrate Nanocrystallized [Fenofibrate] 145 mg PO DAILY 07/18/17 [History] Lisinopril 5 mg PO DAILY 07/18/17 [History] Metoprolol Succinate 25 mg PO DAILY 07/18/17 [History] atorvaSTATin Calcium [Atorvastatin Calcium] 40 mg PO BEDTIME 07/18/17 [History] traMADol [Ultram] 2 tab PO TID PRN 07/18/17 [History] Albuterol Sulfate [Proair Hfa] 2 puff INH QID PRN 11/07/17 [History] Omeprazole 20 mg PO ACBREAKFAST 11/07/17 [History] Oxymetazoline [Afrin Original 0.05% Nasal [place]] 1 spray NASBOTH . NEEDED PRN 11/07/17 [History] Insulin Aspart [NovoLOG] 250 units SUBCUT Q24H 06/19/18 [History] Liraglutide [Victoza] 1.8 mg SUBCUT DAILY 06/19/18 [History] Sucralfate 1 gm PO QIDACANDBED 06/19/18 [History] Ondansetron [Zofran] 4 mg PO Q6H PRN 07/17/18 [History] Isosorbide Mononitrate [Isosorbide Mononitrate ER] 30 mg PO DAILY 03/25/19 [ History] Nitroglycerin 0.4 mg SL Q5M PRN MDD 3 doses 03/25/19 [History] Ranolazine [Ranexa] 1,000 mg PO Q12H 03/25/19 [History] Past Medical History HEENT History: Reports: Glaucoma, Impaired Vision, Other (See Below) Other HEENT History: needs glasses but doesnt wear them Cardiovascular History: Reports: Angina, High Cholesterol, Hypertension, NC, Stents, Other (See Below) Other Cardiovascular History: hx of NC with cardiac stenting Respiratory History: Reports: Asthma, Bronchitis, Recurrent, COPD, Pneumonia, Recurrent Other Respiratory History: COPD with Nebulizer treatments and inhaler - better since she stoped smoking 01/28, Hx of bronchitis annd pneumonia Gastrointestinal History: Reports: GERD, Hiatal Hernia Genitourinary History: Reports: None [employer] History: Reports: Musculoskeletal History: Reports: Arthritis Other Musculoskeletal History: rt leg below the knee amputation Neurological History: Reports: Headaches, Chronic, Neuropathy, Diabetic, Other ( See Below) Other Neuro History: hx: Headaches Psychiatric History: Reports: None Endocrine/Metabolic History: Reports: Diabetes, Type II, Obesity/BMI 30+ Hematologic History: Reports: Anemia, Blood Transfusion(s) Immunologic History: Reports: None Oncologic (Cancer) History: Reports: None Dermatologic History: Reports: None - Infectious Disease History Infectious Disease History: Reports: None - Past Surgical History Head Surgeries/Procedures: Reports: None HEENT Surgical History: Reports: Myringotomy w Tube(s) Other HEENT Surgeries/Procedures: tube placement Cardiovascular Surgical History: Reports: Coronary Artery Stent Other Cardiovascular Surgeries/Procedures: 2014 Respiratory Surgical History: Reports: None GI Surgical History: Reports: Cholecystectomy, Colonoscopy, EGD Female Surgical History: Reports: Hysterectomy Endocrine Surgical History: Reports: None Neurological Surgical History: Reports: None Musculoskeletal Surgical History: Reports: Amputation, Carpal Tunnel Other Musculoskeletal Surgeries/Procedures:: R below the knee amputation Oncologic Surgical History: Reports: None Dermatological Surgical History: Reports: None Social & Family History - Family History Family Medical History: Noncontributory HEENT: Reports: Cataract, Impaired Vision, Otitis Media, Sinusitis Cardiac: Reports: High Cholesterol, Hypertension, NC Other Cardiac Family History: heart problems maternal and paternal sides Respiratory: Reports: Asthma, COPD, Sleep Apnea GI: Reports: None Musculoskeletal: Reports: Arthritis, Gout Neurological: Reports: CVA Psychiatric: Reports: None Endocrine/Metabolic: Reports: Diabetes, Type I, Diabetes, type II, Hyperthyroidism, Obesity/MBI 30+ Hematologic: Reports: Anemia Oncologic: Reports: Lung - Tobacco Use Smoking Status *Q: Former Smoker Used Tobacco, but Quit: Yes Month/Year Tobacco Last Used: 2016 Second Hand Smoke Exposure: No - Caffeine Use Caffeine Use: Reports: Soda, Tea Caffeine Use Comment: "sometimes" - Recreational Drug Use Recreational Drug Use: No H&P Review of Systems - Review of Systems: Review Of Systems: See Below General: Reports: Chills, Malaise, Fatigue. Denies: Fever HEENT: Reports: Sore Throat. Denies: Sinus Congestion, Visual Changes Pulmonary: Reports: Shortness of Breath, Wheezing, Pleuritic Chest Pain, Cough. Denies: Sputum Cardiovascular: Reports: Chest Pain. Denies: Edema Gastrointestinal: Reports: No Symptoms. Denies: Abdominal Pain, Black Stool, Bloody Stool, Nausea, Vomiting Genitourinary: Reports: No Symptoms. Denies: Dysuria, Frequency, Burning Musculoskeletal: Reports: No Symptoms Skin: Reports: No Symptoms Psychiatric: Reports: No Symptoms Neurological: Reports: No Symptoms. Denies: Confusion Hematologic/Lymphatic: Reports: No Symptoms Immunologic: Reports: No Symptoms Exam - Exam Exam: See Below - Vital Signs Vital Signs: Last Vital Signs Temp 96.8 F 03/25/19 09:11 Pulse 62 03/25/19 09:11 Resp 18 03/25/19 09:11 BP 97/58 L 03/25/19 09:11 Pulse Ox 94 L 03/25/19 09:11 Weight: 104.8 kg - Exam General: Alert, Oriented, Cooperative HEENT: Conjunctiva Clear, Mucosa Moist & [place], Posterior Pharynx Clear Lungs: Normal Respiratory Effort, Wheezing Cardiovascular: Regular Rate, Regular Rhythm GI/Abdominal Exam: Normal Bowel Sounds, Soft, Non-Tender Extremities: Normal Inspection, Normal Range of Motion, Non-Tender, No Pedal Edema Neuro Extensive - Mental Status: Alert, Oriented x3 Neuro Extensive - Motor, Sensory, Reflexes: CN II-XII Intact Psychiatric: Alert, Normal Affect, Normal Mood - Patient Data Kapil Results Last 24 hrs: Microbiology 03/25/19 10:20 Influenza Type A Antigen Screen - Final Nasopharyngeal Swab NEGATIVE INFLUENZA A VIRUS AG REFERENCE RANGE: NEGATIVE Influenza Type B Antigen Screen - Final NEGATIVE INFLUENZA B VIRUS AG REFERENCE RANGE: NEGATIVE EKG INTERPRETATION EKG Date: 03/25/19 Rhythm: NSR P-Wave: Present QRS: Normal ST-T: Normal QT: Normal Sepsis Event Note - Focused Exam Vital Signs: Vital Signs Temp Pulse Resp BP Pulse Ox 03/25/19 09:11 96.8 F 62 18 97/58 L 94 L Date Exam was Performed: 03/25/19 Time Exam was Performed: 18:30 - Problem List (1) Bronchitis SNOMED Code(s): 92021473 ICD Code: J40 - BRONCHITIS, NOT SPECIFIED ACUTE OR CHRONIC Status: Acute Current Visit: Yes (2) Chest pain SNOMED Code(s): 28453174 ICD Code: R07.9 - CHEST PAIN, UNSPECIFIED Status: Acute Priority: High Current Visit: No (3) Hx of right BKA SNOMED Code(s): 292956474800817, 980684007132426 ICD Code: Z89.511 - ACQUIRED ABSENCE OF RIGHT LEG BELOW KNEE Status: Chronic Current Visit: Yes (4) COPD exacerbation SNOMED Code(s): 237191029, 699324256 ICD Code: J44.1 - CHRONIC OBSTRUCTIVE PULMONARY DISEASE W (ACUTE) EXACERBATION Status: Chronic Current Visit: No (5) Hypertension SNOMED Code(s): 20244936 ICD Code: I10 - ESSENTIAL (PRIMARY) HYPERTENSION Status: Chronic Priority : Medium Current Visit: No Qualifiers: Hypertension type: unspecified secondary hypertension Qualified Code(s): I15.9 - Secondary hypertension, unspecified (6) COPD (chronic obstructive pulmonary disease) SNOMED Code(s): 26073470 ICD Code: J44.9 - CHRONIC OBSTRUCTIVE PULMONARY DISEASE, UNSPECIFIED Status : Chronic Priority: Medium Current Visit: No Qualifiers: COPD type: chronic bronchitis Chronic bronchitis type: mixed simple and mucopurulent Qualified Code(s): J41.8 - Mixed simple and mucopurulent chronic bronchitis (7) Diabetes mellitus SNOMED Code(s): 55266173 ICD Code: E11.9 - TYPE 2 DIABETES MELLITUS WITHOUT COMPLICATIONS Status: Chronic Priority: High Current Visit: No (8) HTN, Essential hypertension SNOMED Code(s): 92033286 ICD Code: I10 - ESSENTIAL (PRIMARY) HYPERTENSION Status: Chronic Current Visit: No Problem List Initiated/Reviewed/Updated: Yes Orders Last 24hrs: Active Orders 24 hr Category Date Time Status Patient Status [ADT] Routine ADT 03/25/19 09:05 Active Blood Glucose Check, Bedside [RC] TIDAC Care 03/25/19 09:08 Active EKG Documentation Completion [RC] URGENT Care 03/25/19 09:05 Active Intake and Output [RC] QSHIFT Care 03/25/19 09:06 Active Oxygen Therapy [RC] PRN Care 03/25/19 09:05 Active RT Aerosol Therapy [RC] ASDIRECTED Care 03/25/19 11:08 Active Telemetry Monitoring [Cardiac Monitoring] [RC] . Care 03/25/19 11:07 Active DIRECTED VTE/DVT Education [RC] PER UNIT ROUTINE Care 03/25/19 09:05 Active Vital Signs [RC] Q4H Care 03/25/19 09:05 Active Heart Healthy Diet [DIET] Diet 03/25/19 Breakfast Active CBC WITH AUTO DIFF [HEME] AM Lab 03/26/19 05:11 Ordered COMPREHENSIVE METABOLIC PN,CMP [CHEM] AM Lab 03/26/19 05:11 Ordered TROPONIN I [CHEM] Q3H Lab 03/25/19 11:21 Received TROPONIN I [CHEM] Q3H Lab 03/25/19 14:06 Ordered TROPONIN I [CHEM] Q3H Lab 03/25/19 17:06 Ordered TROPONIN I [CHEM] Q3H Lab 03/25/19 20:06 Ordered Acetaminophen [Tylenol] Med 03/25/19 09:05 Active 650 mg PO Q4H PRN Albuterol/Ipratropium [DuoNeb 3.0-0.5 MG/3 ML] Med 03/25/19 14:00 Active 3 ml NEB Q4HRRT Ondansetron [Zofran] Med 03/25/19 09:05 Active 4 mg IVPUSH Q4H PRN Sodium Chloride 0.9% [Normal Saline] 500 ml Med 03/25/19 11:15 Active IV .BOLUS Sodium Chloride 0.9% [Saline Flush] Med 03/25/19 09:05 Active 2.5 ml FLUSH ASDIRECTED PRN Saline Lock Insert [OM.PC] Routine Oth 03/25/19 09:05 Ordered Resuscitation Status Routine Resus Stat 03/25/19 09:05 Ordered Medication Orders Acetaminophen (Tylenol) 650 mg PO Q4H PRN PRN Reason: Pain (mild 1-3) Albuterol/Ipratropium (Duoneb 3.0-0.5 Mg/3 Ml) 3 ml NEB Q4HRRT TIFFANIE Sodium Chloride (Normal Saline) 500 mls @ 999 mls/hr IV .BOLUS TIFFANIE Ondansetron HCl (Zofran) 4 mg IVPUSH Q4H PRN PRN Reason: Nausea Sodium Chloride (Saline Flush) 2.5 ml FLUSH ASDIRECTED PRN PRN Reason: Keep Vein Open Assessment/Plan Comment:: This 44 year old female admitted with chest pain R/O ACS and Bronchitis 1. CHest pain: Trend troponins, monitor on Telemetry. Chest pain sounds more pleuritic in nature. But does have Angiogram with Cardiology in [place] April 23. Continue ASA, statin. 2. Bronchitis/COPD exacerbation: no bacterial infection noted. Will monitor. Duonebs and Solumedrol. Add NS 75 mls/hr overnight 3. DM Types 2: Uses high doses of insulin at home. SSI high dose with 10 units with each meal. Continue Long acting insulin BID. Monitor with meals. Tolerating diet better this afternoon. Neuropathy, continue gabapentin. 4. CAD/PAD hx arterial clot: Continue Antihypertensives. Continue Eliquis as well. VTE prophylaxis: Eliquis Dispo: 1-2 days pending improvement. - Mortality Measure Prognosis:: Good
[2019-03-25] MEDS ORDERED: traMADol 50 MG Tab PO PRN (13:53)
[2019-03-25] MEDS ORDERED: Oxymetazoline 0.05% Nasal Spray 15 ML Bottle NASBOTH PRN (13:53)
[2019-03-25] MEDS: methylPREDNISolone Sodium Succinate 40 MG/1 ML SDV IVPUSH SCH (14:10)
[2019-03-25] MEDS: Albuterol/Ipratropium 3.0-0.5 MG/3 ML Neb Soln NEB SCH ×3 (14:32→21:34)
[2019-03-25] MEDS: Gabapentin 300 MG Cap PO SCH ×2 (14:53→21:46)
[2019-03-25] MEDS: Sodium Chloride 0.9% 1,000 ML IV SCH (17:07)
[2019-03-25] MEDS: Insulin Aspart 100 Units/ML 3 ML Pen SUBCUT SCH ×2 (17:58→17:59)
[2019-03-25] MEDS: Sucralfate 1 GM Tab PO SCH ×2 (18:00→21:48)
[2019-03-25] MEDS ORDERED: atorvaSTATin 40 MG Tab PO SCH (21:00)
[2019-03-25] MEDS: Insulin Detemir 100 Units/ML 3 ML Pen SUBCUT SCH (21:45)
[2019-03-25] MEDS: Apixaban 5 MG Tab PO SCH (21:46)
[2019-03-26] MEDS: methylPREDNISolone Sodium Succinate 40 MG/1 ML SDV IVPUSH SCH ×2 (01:42→14:09)
[2019-03-26] MEDS: Albuterol/Ipratropium 3.0-0.5 MG/3 ML Neb Soln NEB SCH ×3 (01:48→10:01)
[2019-03-26 05:42] LABS: CARBON DIOXIDE,CO2 24.3 mmol/L (21.0-32.0); POTASSIUM,K 4.4 mmol/L (3.5-5.1)
[2019-03-26] MEDS: Gabapentin 300 MG Cap PO SCH ×2 (06:33→14:10)
[2019-03-26] MEDS: Sucralfate 1 GM Tab PO SCH ×2 (06:34→11:53)
[2019-03-26] MEDS ORDERED: Omeprazole 20 MG Cap.CR PO SCH (07:30)
[2019-03-26] MEDS: Insulin Aspart 100 Units/ML 3 ML Pen SUBCUT SCH ×4 (07:31→11:46)
[2019-03-26] MEDS: Sodium Chloride 0.9% 1,000 ML IV SCH (07:35)
[2019-03-26] MEDS ORDERED: Fenofibrate Nanocrystallized 145 MG PO SCH (09:00)
[2019-03-26] MEDS ORDERED: Metoprolol Succinate 25 MG Tab.ER PO SCH (09:00)
[2019-03-26] MEDS ORDERED: Lisinopril 5 MG Tab PO SCH (09:00)
[2019-03-26] MEDS ORDERED: Aspirin 81 MG Tab.Chew PO SCH (09:00)
[2019-03-26] MEDS ORDERED: LIRAGLUTIDE 1.8 MG SUBCUT SCH (09:00)
[2019-03-26] MEDS ORDERED: Isosorbide Mononitrate 30 MG Tab.ER PO SCH (09:00)
[2019-03-26] MEDS ORDERED: Diltiazem 180 MG Cap.CD PO SCH (09:00)
[2019-03-26] MEDS: Apixaban 5 MG Tab PO SCH (09:07)
[2019-03-26] MEDS: Insulin Detemir 100 Units/ML 3 ML Pen SUBCUT SCH (09:18)
[2019-03-26 12:01] VITALS: BP 118/67; PULSE 94
--- NOTE | 2019-03-26 15:39 | PCM.DCSUM1 ---
Discharge Summary - Hospital Course Brief History: THis 44 year old female with pmh of CAD with stenting, Dm Type 2 , HLD, HX R BKA presented to the Cardiology clinic today with complaints of chest pain, dyspnea and nausea. Direct admission recommended for possible COPD exacerbation and influenza. Gabriella reports she started feeling ill over the weekend with poor appetite, coughing that is non productive, mild sore throat and L ear pain, which is now gone. She reports doing anything causes her to be short of breath and then causing some chest pain that covers her entire chest. Chest pain does not radiate. In the clinic she was dry heaving and vomited. She reports her BS have been uncontrolled since getting ill and have been ranging from low to very high 500s. She reports she has Cardiac cath scheduled April for evaluation of CAD after stress test with Dr Ng here. Denied fevers, mild chills at home. No sinus congestion. No abdominal pain, dysuria or diarrhea. Labwork obtained revealed no leukocytosis noted. CXR negative. EKG SR with no ST elevation. She will be admitted for acute URI viral infection and chest pain rule out ACS. Diagnosis: Stroke: No - Discharge Data Discharge Date: 03/26/19 Discharge Disposition: Home, Self-Care 01 Condition: Good - Referral to Home Health Primary Care Physician: PCP Unobtainable - Discharge Diagnosis/Problem(s) (1) Bronchitis SNOMED Code(s): 33146601 ICD Code: J40 - BRONCHITIS, NOT SPECIFIED ACUTE OR CHRONIC Status: Acute Current Visit: Yes (2) Chest pain SNOMED Code(s): 13347663 ICD Code: R07.9 - CHEST PAIN, UNSPECIFIED Status: Acute Priority: High Current Visit: No (3) Hx of right BKA SNOMED Code(s): 160394710374374, 526419354917073 ICD Code: Z89.511 - ACQUIRED ABSENCE OF RIGHT LEG BELOW KNEE Status: Chronic Current Visit: Yes (4) COPD exacerbation SNOMED Code(s): 738196564, 092332684 ICD Code: J44.1 - CHRONIC OBSTRUCTIVE PULMONARY DISEASE W (ACUTE) EXACERBATION Status: Chronic Current Visit: No (5) Hypertension SNOMED Code(s): 50793191 ICD Code: I10 - ESSENTIAL (PRIMARY) HYPERTENSION Status: Chronic Priority : Medium Current Visit: No Qualifiers: Hypertension type: unspecified secondary hypertension Qualified Code(s): I15.9 - Secondary hypertension, unspecified (6) COPD (chronic obstructive pulmonary disease) SNOMED Code(s): 67549557 ICD Code: J44.9 - CHRONIC OBSTRUCTIVE PULMONARY DISEASE, UNSPECIFIED Status : Chronic Priority: Medium Current Visit: No Qualifiers: COPD type: chronic bronchitis Chronic bronchitis type: mixed simple and mucopurulent Qualified Code(s): J41.8 - Mixed simple and mucopurulent chronic bronchitis (7) Diabetes mellitus SNOMED Code(s): 52335628 ICD Code: E11.9 - TYPE 2 DIABETES MELLITUS WITHOUT COMPLICATIONS Status: Chronic Priority: High Current Visit: No (8) HTN, Essential hypertension SNOMED Code(s): 15269526 ICD Code: I10 - ESSENTIAL (PRIMARY) HYPERTENSION Status: Chronic Current Visit: No - Patient Summary/Data Consults: Consultations 03/25/19 13:17 Consult to DM [Consult to Diabetic Nurse Specialist] [CONS] Routine - Patient Instructions Diet: Heart Healthy Diet, Diabetic Diet Activity: As Tolerated, No Strenuous Activities Showering/Bathing: May Shower Notify Provider of: Fever, Increased Pain, Swelling and Redness, Drainage, Nausea and/or Vomiting Other/Special Instructions: Follow up as scheduled with Cardiology - Discharge Plan *PRESCRIPTION DRUG MONITORING PROGRAM REVIEWED*: Not Applicable *COPY OF PRESCRIPTION DRUG MONITORING REPORT IN PATIENT DOV: Not Applicable Prescriptions/Med Rec: Albuterol Sulfate [Proair Hfa] 2 puff INH QID PRN #1 hfa.aer.ad PRN Reason: Shortness Of Breath predniSONE [Prednisone] 40 mg PO DAILY #8 tablet Home Medications: Home Meds Aspirin [Adeel Chewable Aspirin] 81 mg PO DAILY 07/26/14 [History] Apixaban [Eliquis] 5 mg PO BID 01/21/17 [History] Gabapentin [Neurontin] 600 mg PO TID 01/21/17 [History] Insulin Detemir [Levemir] 40 units SQ BID 01/21/17 [History] Albuterol Sulfate 1 unit NEB Q6H PRN 07/18/17 [History] Diltiazem HCl [Dilt-Xr] 180 mg PO DAILY 07/18/17 [History] Fenofibrate Nanocrystallized [Fenofibrate] 145 mg PO DAILY 07/18/17 [History] Lisinopril 5 mg PO DAILY 07/18/17 [History] Metoprolol Succinate 25 mg PO DAILY 07/18/17 [History] atorvaSTATin Calcium [Atorvastatin Calcium] 40 mg PO BEDTIME 07/18/17 [History] traMADol [Ultram] 2 tab PO TID PRN 07/18/17 [History] Omeprazole 20 mg PO ACBREAKFAST 11/07/17 [History] Oxymetazoline [Afrin Original 0.05% Nasal [place]] 1 spray NASBOTH . NEEDED PRN 11/07/17 [History] Insulin Aspart [NovoLOG] 250 units SUBCUT Q24H 06/19/18 [History] Liraglutide [Victoza] 1.8 mg SUBCUT DAILY 06/19/18 [History] Sucralfate 1 gm PO QIDACANDBED 06/19/18 [History] Ondansetron [Zofran] 4 mg PO Q6H PRN 07/17/18 [History] Isosorbide Mononitrate [Isosorbide Mononitrate ER] 30 mg PO DAILY 03/25/19 [ History] Nitroglycerin 0.4 mg SL Q5M PRN MDD 3 doses 03/25/19 [History] Ranolazine [Ranexa] 1,000 mg PO Q12H 03/25/19 [History] Albuterol Sulfate [Proair Hfa] 2 puff INH QID PRN #1 hfa.aer.ad 03/26/19 [Rx] predniSONE [Prednisone] 40 mg PO DAILY #8 tablet 03/26/19 [Rx] Oxygen Therapy Mode: Room Air Patient Handouts: Albuterol inhalation aerosol, Acute Bronchitis, Adult, Easy- to-Read, Prednisone tablets Referrals: [facility] [Outside] Con Lynch MD [Physician] - 04/04/19 8:30 am - Discharge Summary/Plan Comment DC Time >30 min.: No Discharge Summary/Plan Comment: Admitting Diagnoses: Chest pain Bronchitis Nausea Discharge Diagnoses: Chest pain-resolved and ACS ruled out Bronchitis Nausea Other PMH: DM Type 2 CAD Hx R BKA Neuropathy Gabriella was admitted and monitored overnight for atypical chest pain which occurred with some coughing and dyspnea. She was noted to have significant wheezing on exam. She was treated with Solumedrol Duonebs and improved overnight. ACS ruled out. EKG SR with no acute ST changes. CXR negative. No signs of infection. Today she is tolerating diet well. She is feeling much improved. She has follow up with Cardiology in [place] for Angiogram. She will be sent home with albuterol inhaler and Prednisone taper for 4 more days. She is to return to the ED or clinic if concerns should arise. - Patient Data Vitals - Most Recent: Last Vital Signs Temp 97.5 F 03/26/19 12:00 Pulse 94 03/26/19 12:00 Resp 16 03/26/19 12:00 BP 118/67 03/26/19 12:00 Pulse Ox 93 L 03/26/19 12:00 Weight - Most Recent: 104.8 kg I&O - Last 24 hours: Intake & Output 03/26/19 03/26/19 03/26/19 06:59 14:59 22:59 Intake Total 1250 2099 Output Total 2700 1150 Balance -1450 949 Lab Results - Last 24 hrs: Laboratory Results - last 24 hr 03/25/19 03/25/19 03/25/19 Range/Units 17:18 17:21 20:02 WBC (4.0-11.0) K/uL RBC (4.30-5.90) M/uL Hgb (12.0-16.0) g/dL Hct (36.0-46.0) % MCV (80.0-98.0) fL MCH (27.0-32.0) pg MCHC (31.0-37.0) g/dL RDW Std Deviation (28.0-62.0) fl RDW Coeff of [place]ond (11.0-15.0) % Plt Count (150-400) K/uL MPV (7.40-12.00) fL Neut % (Auto) (48.0-80.0) % Lymph % (Auto) (16.0-40.0) % [place] % (Auto) (0.0-15.0) % Eos % (Auto) (0.0-7.0) % Baso % (Auto) (0.0-1.5) % Neut # (Auto) (1.4-5.7) K/uL Lymph # (Auto) (0.6-2.4) K/uL [place] # (Auto) (0.0-0.8) K/uL Eos # (Auto) (0.0-0.7) K/uL Baso # (Auto) (0.0-0.1) K/uL Nucleated RBC % /100WBC Nucleated RBCs # K/uL Sodium (136-145) mmol/L Potassium (3.5-5.1) mmol/L Chloride (98-107) mmol/L Carbon Dioxide (21.0-32.0) mmol/L BUN (7.0-18.0) mg/dL Creatinine (0.6-1.0) mg/dL Est Cr Clr Drug Dosing mL/min Estimated GFR (MDRD) ml/min Glucose (74-106) mg/dL POC Glucose 240 H (60-110) mg/dL Calcium (8.5-10.1) mg/dL Total Bilirubin (0.2-1.0) mg/dL AST (15-37) IU/L ALT (14-63) IU/L Alkaline Phosphatase (46-116) U/L Troponin I < 0.050 < 0.050 (0.000-0.056) ng/mL Total Protein (6.4-8.2) g/dL Albumin (3.4-5.0) g/dL Globulin (2.6-4.0) g/dL Albumin/Globulin Ratio (0.9-1.6) 03/25/19 03/26/19 03/26/19 Range/Units 21:43 05:00 05:00 WBC 6.48 (4.0-11.0) K/uL RBC 4.41 (4.30-5.90) M/uL Hgb 12.2 (12.0-16.0) g/dL Hct 37.2 (36.0-46.0) % MCV 84.4 (80.0-98.0) fL MCH 27.7 (27.0-32.0) pg MCHC 32.8 (31.0-37.0) g/dL RDW Std Deviation 46.2 (28.0-62.0) fl RDW Coeff of Demond 15 (11.0-15.0) % Plt Count 268 (150-400) K/uL MPV 10.30 (7.40-12.00) fL Neut % (Auto) 87.2 H (48.0-80.0) % Lymph % (Auto) 10.3 L (16.0-40.0) % [place] % (Auto) 2.3 (0.0-15.0) % Eos % (Auto) 0.0 (0.0-7.0) % Baso % (Auto) 0.2 (0.0-1.5) % Neut # (Auto) 5.7 (1.4-5.7) K/uL Lymph # (Auto) 0.7 (0.6-2.4) K/uL [place] # (Auto) 0.2 (0.0-0.8) K/uL Eos # (Auto) 0.0 (0.0-0.7) K/uL Baso # (Auto) 0.0 (0.0-0.1) K/uL Nucleated RBC % 0.0 /100WBC Nucleated RBCs # 0 K/uL Sodium 137 (136-145) mmol/L Potassium 4.4 (3.5-5.1) mmol/L Chloride 101 (98-107) mmol/L Carbon Dioxide 24.3 (21.0-32.0) mmol/L BUN 17 (7.0-18.0) mg/dL Creatinine 1.2 H (0.6-1.0) mg/dL Est Cr Clr Drug Dosing 53.27 mL/min Estimated GFR (MDRD) 48.6 ml/min Glucose 338 H (74-106) mg/dL POC Glucose 268 H (60-110) mg/dL Calcium 8.5 (8.5-10.1) mg/dL Total Bilirubin 0.3 (0.2-1.0) mg/dL AST 11 L (15-37) IU/L ALT 28 (14-63) IU/L Alkaline Phosphatase 39 L (46-116) U/L Troponin I (0.000-0.056) ng/mL Total Protein 6.9 (6.4-8.2) g/dL Albumin 2.9 L (3.4-5.0) g/dL Globulin 4.0 (2.6-4.0) g/dL Albumin/Globulin Ratio 0.7 L (0.9-1.6) 03/26/19 03/26/19 03/26/19 Range/Units 06:33 09:07 11:50 WBC (4.0-11.0) K/uL RBC (4.30-5.90) M/uL Hgb (12.0-16.0) g/dL Hct (36.0-46.0) % MCV (80.0-98.0) fL MCH (27.0-32.0) pg MCHC (31.0-37.0) g/dL RDW Std Deviation (28.0-62.0) fl RDW Coeff of Demond (11.0-15.0) % Plt Count (150-400) K/uL MPV (7.40-12.00) fL Neut % (Auto) (48.0-80.0) % Lymph % (Auto) (16.0-40.0) % [place] % (Auto) (0.0-15.0) % Eos % (Auto) (0.0-7.0) % Baso % (Auto) (0.0-1.5) % Neut # (Auto) (1.4-5.7) K/uL Lymph # (Auto) (0.6-2.4) K/uL [place] # (Auto) (0.0-0.8) K/uL Eos # (Auto) (0.0-0.7) K/uL Baso # (Auto) (0.0-0.1) K/uL Nucleated RBC % /100WBC Nucleated RBCs # K/uL Sodium (136-145) mmol/L Potassium (3.5-5.1) mmol/L Chloride (98-107) mmol/L Carbon Dioxide (21.0-32.0) mmol/L BUN (7.0-18.0) mg/dL Creatinine (0.6-1.0) mg/dL Est Cr Clr Drug Dosing mL/min Estimated GFR (MDRD) ml/min Glucose (74-106) mg/dL POC Glucose 297 H 366 H 347 H (60-110) mg/dL Calcium (8.5-10.1) mg/dL Total Bilirubin (0.2-1.0) mg/dL AST (15-37) IU/L ALT (14-63) IU/L Alkaline Phosphatase (46-116) U/L Troponin I (0.000-0.056) ng/mL Total Protein (6.4-8.2) g/dL Albumin (3.4-5.0) g/dL Globulin (2.6-4.0) g/dL Albumin/Globulin Ratio (0.9-1.6) [facility] Results - Last 24 hrs: Microbiology 03/25/19 10:20 Influenza Type A Antigen Screen - Final Nasopharyngeal Swab NEGATIVE INFLUENZA A VIRUS AG REFERENCE RANGE: NEGATIVE Influenza Type B Antigen Screen - Final NEGATIVE INFLUENZA B VIRUS AG REFERENCE RANGE: NEGATIVE Med Orders - Current: Current Medications Acetaminophen (Tylenol) 650 mg PO Q4H PRN PRN Reason: Pain (mild 1-3) Last Admin: 03/25/19 12:07 Dose: 650 mg Albuterol/Ipratropium (Duoneb 3.0-0.5 Mg/3 Ml) 3 ml NEB Q4HRRT [facility] Last Admin: 03/26/19 10:01 Dose: 3 ml Apixaban (Eliquis) 5 mg PO BID [facility] Last Admin: 03/26/19 09:07 Dose: 5 mg Aspirin (Aspirin) 81 mg PO DAILY [facility] Last Admin: 03/26/19 09:07 Dose: 81 mg Atorvastatin Calcium (Lipitor) 40 mg PO BEDTIME [facility] Last Admin: 03/25/19 21:47 Dose: 40 mg Diltiazem HCl (Cardizem Cd) 180 mg PO DAILY [facility] Last Admin: 03/26/19 09:43 Dose: Not Given Gabapentin (Neurontin) 600 mg PO TID [facility] Last Admin: 03/26/19 14:10 Dose: 600 mg Sodium Chloride (Normal Saline) 500 mls @ 999 mls/hr IV .BOLUS [facility] Last Admin: 03/25/19 12:07 Dose: 999 mls/hr Sodium Chloride (Normal Saline) 1,000 mls @ 75 mls/hr IV ASDIRECTED [facility] Last Admin: 03/26/19 07:35 Dose: 75 mls/hr Insulin Aspart (Novolog) 0 unit SUBCUT TIDAC [facility]; Protocol Last Admin: 03/26/19 11:43 Dose: 16 unit Insulin Aspart (Novolog) 10 unit SUBCUT TIDAC [facility] Last Admin: 03/26/19 11:46 Dose: 10 unit Insulin Detemir (Levemir) 40 unit SUBCUT BID [facility] Last Admin: 03/26/19 09:18 Dose: 40 units Isosorbide Mononitrate (Imdur) 30 mg PO DAILY [facility] Last Admin: 03/26/19 09:42 Dose: 30 mg Lisinopril (Prinivil) 5 mg PO DAILY [facility] Last Admin: 03/26/19 09:41 Dose: Not Given Methylprednisolone Sodium Succinate (Solu-Medrol) 40 mg IVPUSH Q12H [facility] Last Admin: 03/26/19 14:09 Dose: 40 mg Metoprolol Succinate (Toprol Xl) 25 mg PO DAILY [facility] Last Admin: 03/26/19 09:42 Dose: 25 mg Omeprazole (Omeprazole) 20 mg PO ACBREAKFAST [facility] Last Admin: 03/26/19 06:33 Dose: 20 mg Ondansetron HCl (Zofran) 4 mg IVPUSH Q4H PRN PRN Reason: Nausea Last Admin: 03/25/19 14:10 Dose: 4 mg Oxymetazoline HCl (Afrin Original 0.05% Nasal [place]) 0 ml NASBOTH . NEEDED PRN PRN Reason: Congestion Fenofibrate Nanocrystallized 145 Mg 1 each PO DAILY [facility] Last Admin: 03/26/19 09:17 Dose: 1 each ]Liraglutide 1.8 Mg 0 each SUBCUT DAILY [facility] Last Admin: 03/26/19 09:25 Dose: 1 each Ranolazine (Ranexa) 1,000 mg PO Q12H [facility] Last Admin: 03/26/19 14:10 Dose: 1,000 mg Sodium Chloride (Saline Flush) 2.5 ml FLUSH ASDIRECTED PRN PRN Reason: Keep Vein Open Sucralfate (Carafate) 1 gm PO QIDACANDBED [facility] Last Admin: 03/26/19 11:53 Dose: 1 gm Tramadol HCl (Ultram) 100 mg PO TID PRN PRN Reason: Pain Last Admin: 03/25/19 21:58 Dose: 100 mg
== END 2019-03-26 15:00 | disposition home or self-care (01) ==
LOC: MW.MS 09:01 → UNDOADMOB 09:01 → MW.MS 11:07
PROVIDERS: ADMIT Student in an Organized Health Care Education/Training Program; ATTEND Student in an Organized Health Care Education/Training Program
DX: R07.89 Other chest pain (principal); J20.9 Acute bronchitis, unspecified; J44.0 Chronic obstructive pulmonary disease with (acute) lower respiratory infection; J44.1 Chronic obstructive pulmonary disease with (acute) exacerbation; I10 Essential (primary) hypertension; E11.40 Type 2 diabetes mellitus with diabetic neuropathy, unspecified; I25.10 Atherosclerotic heart disease of native coronary artery without angina pectoris; E78.5 Hyperlipidemia, unspecified; E78.00 Pure hypercholesterolemia, unspecified; I25.2 Old myocardial infarction; K21.9 Gastro-esophageal reflux disease without esophagitis; K44.9 Diaphragmatic hernia without obstruction or gangrene; E66.9 Obesity, unspecified; Z68.38 Body mass index [BMI] 38.0-38.9, adult; Z87.891 Personal history of nicotine dependence; Z79.82 Long term (current) use of aspirin; Z79.4 Long term (current) use of insulin; Z79.84 Long term (current) use of oral hypoglycemic drugs; Z79.01 Long term (current) use of anticoagulants; Z79.899 Other long term (current) drug therapy; Z88.5 Allergy status to narcotic agent; Z88.1 Allergy status to other antibiotic agents; Z89.511 Acquired absence of right leg below knee; Z95.5 Presence of coronary angioplasty implant and graft; Z86.718 Personal history of other venous thrombosis and embolism
CPT/HCPCS: 36415; 80053; 81003; 82962; 84484; 85025; 87804; 93005; 94640; A9270; J1815; J2405; J2920; J7030; J7040; 96361; 96374; 96375; 96376; G0378; J7620-GY

== ENCOUNTER 2019-05-28 19:21 | Emergency (ER) | payer MEDICAID ==
--- NOTE | 2019-05-28 19:49 | EDM.PDOC ---
ED HPI GENERAL MEDICAL PROBLEM - General Chief Complaint: ENT Problem Stated Complaint: RUPTURED EAR DRUM Time Seen by Provider: 05/28/19 19:27 Source of Information: Reports: Patient History Limitations: Reports: No Limitations - History of Present Illness INITIAL COMMENTS - FREE TEXT/NARRATIVE: HISTORY OF PRESENT ILLNESS: Patient is a 44-year-old female with history of diabetes who presents the ER with left ear pain since last night. States that she had earache last night but this morning she felt draining to the ear. Rates pain a 7 out of 10 in severity, constant. Denies any fevers or chills. Able to chew and swallow. Denies any mastoid pain. No facial rash or swelling. 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 No chest pain or dyspnea. Has otherwise been in normal state of health. No recent trauma or falls. States glucose has been well controlled. REVIEW OF SYSTEMS: Other than the symptoms associated with the present events, the following is reported with regard to recent health: General: (-) fever. HENT: (-) congestion. Respiratory: (-) cough. Cardiovascular: (-) chest pain. GI: (-) abdominal pain. : (-) urinary complaints. Musculoskeletal: (-) other aches or pains. Endocrine: (-) generalized weakness. Neurological: (-) localized weakness. Skin: (-) rash PAST MEDICAL HISTORY: reviewed as per nursing notes SOCIAL HISTORY: reviewed as per nursing notes, MEDICATIONS: Per nurse's note ALLERGIES: Per nurse's note, reviewed by me PHYSICAL EXAMINATION: GENERALIZED APPEARANCE: well developed, well nourished in no distress despite rating pain as above VITAL SIGNS: Per nurse's note, reviewed by me SKIN: Warm, dry; (-) cyanosis; (-) rash. no vesicles HEAD: (-) scalp swelling, (-) tenderness. EYES: (-) conjunctival pallor, (-) scleral icterus. ENMT: (-) stridor; mucous membranes moist. pain with movement of external ear. no mastoid tenderness. left external canal swollen with clear drainage unale to visualize TM. right TM and canal wnl. NECK: (-) tenderness, (-) stiffness, no meningismus CHEST AND RESPIRATORY: (-) rales, (-) rhonchi, (-) wheezes; breath sounds equal bilaterally. HEART AND CARDIOVASCULAR: (-) irregularity; (-) murmur, (-) gallop. ABDOMEN AND GI: Soft; (-) tenderness, (-) guarding, (-) rebound, (-) palpable masses, EXTREMITIES: (-) deformity, (-) edema. NEURO AND PSYCH: Alert. Cranial nerves grossly intact; strength symmetric. gait steady. sensation to face intact. no facial droop. EMERGENCY DEPARTMENT COURSE AND TREATMENT: Patient's condition remained stable during Emergency Department evaluation. Pt with AOE, unable to visualize TM and I do not know if it is intact. Therefore, will start on Cipro PO. No evidence of malignant otitis externa at this time, given discharge precautions .Must f/u with pcp tomorrow and with ENT in 1-2 days. Return immediately with any new or worsening symptoms. Pt expressed verbal understanding. PLAN AND FOLLOW-UP: Patient received written and verbal instructions regarding this condition. Return to ED immediately with any new or worsening symptoms. Follow up to be arranged by patient with pcp in 1-2 days for further evaluation. Given discharge precautions. Patient expressed verbal understanding. left ear Pain Score (Numeric/FACES): 7 - Related Data Allergies Allergy/AdvReac Type Severity Reaction Status Date / Time doxycycline Allergy Hives Verified 05/28/19 19:31 morphine Allergy Itching Verified 05/28/19 19:31 prednisone Allergy Nausea Verified 05/28/19 19:31 Home Meds: Home Meds Aspirin [Adeel Chewable Aspirin] 81 mg PO DAILY 07/26/14 [History] Apixaban [Eliquis] 5 mg PO BID 01/21/17 [History] Gabapentin [Neurontin] 600 mg PO TID 01/21/17 [History] Insulin Detemir [Levemir] 40 units SQ BID 01/21/17 [History] Albuterol Sulfate 1 unit NEB Q6H PRN 07/18/17 [History] Diltiazem HCl [Dilt-Xr] 180 mg PO DAILY 07/18/17 [History] Fenofibrate Nanocrystallized [Fenofibrate] 145 mg PO DAILY 07/18/17 [History] Lisinopril 5 mg PO DAILY 07/18/17 [History] Metoprolol Succinate 50 mg PO DAILY 07/18/17 [History] atorvaSTATin Calcium [Atorvastatin Calcium] 40 mg PO BEDTIME 07/18/17 [History] traMADol [Ultram] 2 tab PO TID PRN 07/18/17 [History] Omeprazole 20 mg PO ACBREAKFAST 11/07/17 [History] Oxymetazoline [Afrin Original 0.05% Nasal [place]] 1 spray NASBOTH . NEEDED PRN 11/07/17 [History] Insulin Aspart [NovoLOG] 250 units SUBCUT Q24H 06/19/18 [History] Liraglutide [Victoza] 1.8 mg SUBCUT DAILY 06/19/18 [History] Sucralfate 1 gm PO QIDACANDBED 06/19/18 [History] Ondansetron [Zofran] 4 mg PO Q6H PRN 07/17/18 [History] Isosorbide Mononitrate [Isosorbide Mononitrate ER] 30 mg PO DAILY 03/25/19 [ History] Nitroglycerin 0.4 mg SL Q5M PRN MDD 3 doses 03/25/19 [History] Ranolazine [Ranexa] 1,000 mg PO Q12H 03/25/19 [History] Albuterol Sulfate [Proair Hfa] 2 puff INH QID PRN #1 hfa.aer.ad 03/26/19 [Rx] predniSONE [Prednisone] 40 mg PO DAILY #8 tablet 03/26/19 [Rx] Ciprofloxacin HCl [Cipro] 500 mg PO BID 7 Days #14 tablet 05/28/19 [Rx] Past Medical History HEENT History: Reports: Glaucoma, Impaired Vision, Other (See Below) Other HEENT History: needs glasses but doesnt wear them Cardiovascular History: Reports: Angina, High Cholesterol, Hypertension, PA, Stents, Other (See Below) Other Cardiovascular History: hx of PA with cardiac stenting Respiratory History: Reports: Asthma, Bronchitis, Recurrent, COPD, Pneumonia, Recurrent Other Respiratory History: COPD with Nebulizer treatments and inhaler - better since she stoped smoking 01/28, Hx of bronchitis annd pneumonia Gastrointestinal History: Reports: GERD, Hiatal Hernia Genitourinary History: Reports: None GUARD CHIEF History: Reports: Musculoskeletal History: Reports: Arthritis Other Musculoskeletal History: rt leg below the knee amputation Neurological History: Reports: Headaches, Chronic, Neuropathy, Diabetic, Other ( See Below) Other Neuro History: hx: Headaches Psychiatric History: Reports: None Endocrine/Metabolic History: Reports: Diabetes, Type II, Obesity/BMI 30+ Hematologic History: Reports: Anemia, Blood Transfusion(s) Immunologic History: Reports: None Oncologic (Cancer) History: Reports: None Dermatologic History: Reports: None - Infectious Disease History Infectious Disease History: Reports: None - Past Surgical History Head Surgeries/Procedures: Reports: None HEENT Surgical History: Reports: Myringotomy w Tube(s) Other HEENT Surgeries/Procedures: tube placement Cardiovascular Surgical History: Reports: Coronary Artery Stent Other Cardiovascular Surgeries/Procedures: 2014 Respiratory Surgical History: Reports: None GI Surgical History: Reports: Cholecystectomy, Colonoscopy, EGD Female Surgical History: Reports: Hysterectomy Endocrine Surgical History: Reports: None Neurological Surgical History: Reports: None Musculoskeletal Surgical History: Reports: Amputation, Carpal Tunnel Other Musculoskeletal Surgeries/Procedures:: R below the knee amputation Oncologic Surgical History: Reports: None Dermatological Surgical History: Reports: None Social & Family History - Family History Family Medical History: Noncontributory HEENT: Reports: Cataract, Impaired Vision, Otitis Media, Sinusitis Cardiac: Reports: High Cholesterol, Hypertension, PA Other Cardiac Family History: heart problems maternal and paternal sides Respiratory: Reports: Asthma, COPD, Sleep Apnea GI: Reports: None Musculoskeletal: Reports: Arthritis, Gout Neurological: Reports: CVA Psychiatric: Reports: None Endocrine/Metabolic: Reports: Diabetes, Type I, Diabetes, type II, Hyperthyroidism, Obesity/MBI 30+ Hematologic: Reports: Anemia Oncologic: Reports: Lung - Tobacco Use Smoking Status *Q: Former Smoker Used Tobacco, but Quit: Yes Month/Year Tobacco Last Used: 2017 - Caffeine Use Caffeine Use: Reports: Soda, Tea Caffeine Use Comment: "sometimes" - Recreational Drug Use Recreational Drug Use: No ED ROS GENERAL - Review of Systems Review Of Systems: See Below (see dictation) ED EXAM, GENERAL - Physical Exam Exam: See Below (see dictation) Course - Vital Signs Last Recorded V/S: Last Vital Signs Temp 97.2 F 05/28/19 19:30 Pulse 87 05/28/19 19:30 Resp 17 05/28/19 19:30 BP 134/77 05/28/19 19:30 Pulse Ox 99 05/28/19 19:30 Departure - Departure Time of Disposition: 19:44 Disposition: Home, Self-Care 01 Condition: Good Clinical Impression: Otitis externa - Discharge Information *PRESCRIPTION DRUG MONITORING PROGRAM REVIEWED*: Not Applicable *COPY OF PRESCRIPTION DRUG MONITORING REPORT IN PATIENT DOV: Not Applicable Prescriptions: Ciprofloxacin HCl [Cipro] 500 mg PO BID 7 Days #14 tablet Instructions: Otitis Externa, [id number] Referrals: Con Lynch MD [Primary Care Provider] - 1 Day Cristi Vega MD [Ordering Only Provider] - 2 Days Forms: ED Department Discharge Additional Instructions: The following information is given to patients seen in the emergency department who are being discharged to home. This information is to outline your options for follow-up care. We provide all patients seen in our emergency department with a follow-up referral. The need for follow-up, as well as the timing and circumstances, are variable depending upon the specifics of your emergency department visit. If you don't have a primary care physician on staff, we will provide you with a referral. We always advise you to contact your personal physician following an emergency department visit to inform them of the circumstance of the visit and for follow-up with them and/or the need for any referrals to a consulting specialist. The emergency department will also refer you to a specialist when appropriate. This referral assures that you have the opportunity for follow-up care with a specialist. All of these measure are taken in an effort to provide you with optimal care, which includes your follow-up. Under all circumstances we always encourage you to contact your private physician who remains a resource for coordinating your care. When calling for follow-up care, please make the office aware that this follow-up is from your recent emergency room visit. If for any reason you are refused follow-up, please contact the [facility] Emergency Department at and asked to speak to the emergency department charge nurse. Sepsis Event Note - Evaluation Sepsis Screening Result: No Definite Risk - Focused Exam Vital Signs: Vital Signs Temp Pulse Resp BP Pulse Ox 05/28/19 19:30 97.2 F 87 17 134/77 99 Date Exam was Performed: 05/28/19 Time Exam was Performed: 20:04
[2019-05-28 20:28] VITALS: BP 142/71; PULSE 82
== END 2019-05-28 20:25 | disposition home or self-care (01) ==
LOC: MW.ED 19:21
DX: H60.92 Unspecified otitis externa, left ear (principal); I10 Essential (primary) hypertension; E78.00 Pure hypercholesterolemia, unspecified; K21.9 Gastro-esophageal reflux disease without esophagitis; M19.90 Unspecified osteoarthritis, unspecified site; E11.40 Type 2 diabetes mellitus with diabetic neuropathy, unspecified; E66.9 Obesity, unspecified; Z68.37 Body mass index [BMI] 37.0-37.9, adult; Z87.891 Personal history of nicotine dependence; Z88.5 Allergy status to narcotic agent; Z88.1 Allergy status to other antibiotic agents; Z88.8 Allergy status to other drugs, medicaments and biological substances; Z79.82 Long term (current) use of aspirin; Z79.01 Long term (current) use of anticoagulants; Z79.4 Long term (current) use of insulin; Z79.899 Other long term (current) drug therapy
CPT/HCPCS: 82962; 99283

== ENCOUNTER 2019-05-29 15:52 | Emergency (ER) | payer MEDICAID ==
[2019-05-29] MEDS ORDERED: Sodium Chloride 0.9% 2.5 ML Syringe FLUSH PRN (15:54)
[2019-05-29] MEDS ORDERED: Sodium Chloride 0.9% 1,000 ML IV ONE (15:56)
[2019-05-29] MEDS: Sodium Chloride 0.9% 10 ML Syringe FLUSH PRN ×2 (16:15→17:59)
[2019-05-29] MEDS ORDERED: HYDROmorphone 1 MG/ML Syringe IVPUSH ONE ×2 (16:17→17:43)
--- NOTE | 2019-05-29 16:27 | EDM.PDOC ---
ED HPI GENERAL MEDICAL PROBLEM - General Chief Complaint: General Stated Complaint: CLINIC TRANSFER INCREASING LEFT EAR PAIN WITH PAIN IN MASTOID Time Seen by Provider: 05/29/19 16:10 Source of Information: Reports: Patient History Limitations: Reports: No Limitations - History of Present Illness INITIAL COMMENTS - FREE TEXT/NARRATIVE: This 44 year old female was referred to the ED by Dr. Lorin Hernandez after seeing this patient in the clinic with a chief complaint of increasing pain in her left ear and swelling over the left side of her neck extending into the left mastoid bone. She complains of difficulty opening her mouth due to severe pain. She was seen in the ED last night and placed on Cirpo for left externa otitis. The patient states that the pain is unbearable. She denies any chest pain or SOB. She denies any stiffness of her neck. She denies any visual disturbances. She denies any other symptomatology at this time. Onset: Gradual (worse since last night) Location: Reports: Other (left ear and left mastoid pain) Quality: Reports: Sharp, Throbbing Severity: Moderate Improves with: Reports: None Worsens with: Reports: None left ear Pain Score (Numeric/FACES): 8 - Related Data Allergies Allergy/AdvReac Type Severity Reaction Status Date / Time doxycycline Allergy Hives Verified 05/29/19 15:58 morphine Allergy Itching Verified 05/29/19 15:58 prednisone Allergy Nausea Verified 05/29/19 15:58 Home Meds: Home Meds Aspirin [Adeel Chewable Aspirin] 81 mg PO DAILY 07/26/14 [History] Apixaban [Eliquis] 5 mg PO BID 01/21/17 [History] Gabapentin [Neurontin] 600 mg PO TID 01/21/17 [History] Insulin Detemir [Levemir] 40 units SQ BID 01/21/17 [History] Albuterol Sulfate 1 unit NEB Q6H PRN 07/18/17 [History] Diltiazem HCl [Dilt-Xr] 180 mg PO DAILY 07/18/17 [History] Fenofibrate Nanocrystallized [Fenofibrate] 145 mg PO DAILY 07/18/17 [History] Lisinopril 5 mg PO DAILY 07/18/17 [History] Metoprolol Succinate 50 mg PO DAILY 07/18/17 [History] atorvaSTATin Calcium [Atorvastatin Calcium] 40 mg PO BEDTIME 07/18/17 [History] traMADol [Ultram] 2 tab PO TID PRN 07/18/17 [History] Omeprazole 20 mg PO ACBREAKFAST 11/07/17 [History] Oxymetazoline [Afrin Original 0.05% Nasal [place]] 1 spray NASBOTH . NEEDED PRN 11/07/17 [History] Insulin Aspart [NovoLOG] 250 units SUBCUT Q24H 06/19/18 [History] Liraglutide [Victoza] 1.8 mg SUBCUT DAILY 06/19/18 [History] Sucralfate 1 gm PO QIDACANDBED 06/19/18 [History] Ondansetron [Zofran] 4 mg PO Q6H PRN 07/17/18 [History] Isosorbide Mononitrate [Isosorbide Mononitrate ER] 30 mg PO DAILY 03/25/19 [ History] Nitroglycerin 0.4 mg SL Q5M PRN MDD 3 doses 03/25/19 [History] Ranolazine [Ranexa] 1,000 mg PO Q12H 03/25/19 [History] Albuterol Sulfate [Proair Hfa] 2 puff INH QID PRN #1 hfa.aer.ad 03/26/19 [Rx] predniSONE [Prednisone] 40 mg PO DAILY #8 tablet 03/26/19 [Rx] Ciprofloxacin HCl [Cipro] 500 mg PO BID 7 Days #14 tablet 05/28/19 [Rx] Past Medical History HEENT History: Reports: Glaucoma, Impaired Vision, Other (See Below) Other HEENT History: needs glasses but doesnt wear them Cardiovascular History: Reports: Angina, High Cholesterol, Hypertension, [place], Stents, Other (See Below) Other Cardiovascular History: hx of [place] with cardiac stenting Respiratory History: Reports: Asthma, Bronchitis, Recurrent, COPD, Pneumonia, Recurrent Other Respiratory History: COPD with Nebulizer treatments and inhaler - better since she stoped smoking 01/28, Hx of bronchitis annd pneumonia Gastrointestinal History: Reports: GERD, Hiatal Hernia Genitourinary History: Reports: None 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: Musculoskeletal History: Reports: Arthritis Other Musculoskeletal History: rt leg below the knee amputation Neurological History: Reports: Headaches, Chronic, Neuropathy, Diabetic, Other ( See Below) Other Neuro History: hx: Headaches Psychiatric History: Reports: None Endocrine/Metabolic History: Reports: Diabetes, Type II, Obesity/BMI 30+ Hematologic History: Reports: Anemia, Blood Transfusion(s) Immunologic History: Reports: None Oncologic (Cancer) History: Reports: None Dermatologic History: Reports: None - Infectious Disease History Infectious Disease History: Reports: None - Past Surgical History Head Surgeries/Procedures: Reports: None HEENT Surgical History: Reports: Myringotomy w Tube(s) Other HEENT Surgeries/Procedures: tube placement Cardiovascular Surgical History: Reports: Coronary Artery Stent Other Cardiovascular Surgeries/Procedures: 2014 Respiratory Surgical History: Reports: None GI Surgical History: Reports: Cholecystectomy, Colonoscopy, EGD Female Surgical History: Reports: Hysterectomy Endocrine Surgical History: Reports: None Neurological Surgical History: Reports: None Musculoskeletal Surgical History: Reports: Amputation, Carpal Tunnel Other Musculoskeletal Surgeries/Procedures:: R below the knee amputation Oncologic Surgical History: Reports: None Dermatological Surgical History: Reports: None Social & Family History - Family History Family Medical History: Noncontributory HEENT: Reports: Cataract, Impaired Vision, Otitis Media, Sinusitis Cardiac: Reports: High Cholesterol, Hypertension, [place] Other Cardiac Family History: heart problems maternal and paternal sides Respiratory: Reports: Asthma, COPD, Sleep Apnea GI: Reports: None Musculoskeletal: Reports: Arthritis, Gout Neurological: Reports: CVA Psychiatric: Reports: None Endocrine/Metabolic: Reports: Diabetes, Type I, Diabetes, type II, Hyperthyroidism, Obesity/MBI 30+ Hematologic: Reports: Anemia Oncologic: Reports: Lung - Tobacco Use Smoking Status *Q: Former Smoker Used Tobacco, but Quit: Yes Month/Year Tobacco Last Used: 2017 - Caffeine Use Caffeine Use: Reports: Soda, Tea Caffeine Use Comment: "sometimes" - Recreational Drug Use Recreational Drug Use: No ED ROS GENERAL - Review of Systems Review Of Systems: See Below Constitutional: Reports: Chills (but no fever) HEENT: Reports: Ear Discharge (left ear), Ear Pain (left ear pain that is getting worse.), Other (pain over left mastoid bone) Respiratory: Reports: No Symptoms Cardiovascular: Reports: No Symptoms Endocrine: Reports: No Symptoms GI/Abdominal: Reports: No Symptoms : Reports: No Symptoms Musculoskeletal: Reports: No Symptoms Skin: Reports: No Symptoms Neurological: Reports: No Symptoms ED EXAM, GENERAL - Physical Exam Exam: See Below Exam Limited By: No Limitations General Appearance: Alert, WD/WN (obese), Anxious, Moderate Distress ( complaining of left ear pain.) Eye Exam: Bilateral Eye: EOMI, Normal Inspection, PERRL Ears: Other (clear drainage noted in left ear which appears to be thick but without smell) Ear Exam: Left Ear: Swelling, Tenderness, TM Dull (unable to visulize due to pain with the exam), TM Perforation (uanble to evaluate due to pain with the exam) Nose: Normal Inspection, Normal Mucosa Throat/Mouth: Normal Voice, No Airway Compromise, Other (very difficult to evaluate because the patient cannot open her mouth due to pain. From what I can see, there is no gross oral pathology) Head: Atraumatic, Normocephalic, Facial Swelling (mild swelling of left side of face near ear with mild erythema.), Facial Tenderness (tenderness is noted over the left mastoid bone. No erythema noted over left mastoid). No: Sinus Tenderness Neck: Normal Inspection, Supple, Non-Tender, Other (decrease right lateral rotation of the neck due to pain in the left mastoid and left ear area) Respiratory/Chest: No Respiratory Distress, Lungs Clear, Normal Breath Sounds, No Accessory Muscle Use, Chest Non-Tender Cardiovascular: Normal Peripheral Pulses, Regular Rate, Rhythm, No Edema, No JVD , No Murmur, No Rub Peripheral Pulses: 3+: Carotid (L) (No bruits), Carotid (R) (No bruits), Radial (L), Radial (R), Dorsalis Pedis (L), Dorsalis Pedis (R) GI/Abdominal: Normal Bowel Sounds, Soft, Non-Tender, No Distention, No Abnormal Bruit, Other (morbid obesity) (Female) Exam: Deferred Rectal (Female) Exam: Deferred Back Exam: Normal Inspection Extremities: Normal Inspection, Normal Range of Motion, No Pedal Edema, Normal Capillary Refill Neurological: Alert, Oriented (times 4), CN II-XII Intact, Normal Reflexes, No Motor/Sensory Deficits Psychiatric: Normal Affect, Normal Mood Skin Exam: Warm, Dry, Intact, Normal Color, No Rash Lymphatic: No Adenopathy Course - Vital Signs Text/Narrative:: I talked with Dr. Silvestre (ENT) at [place]. I discussed this case with him in detail. She will be transferred to [facility] ED in [place] for further evaluation and treatment. The patient agrees with the plan. She will be transferred via ALS unit. Last Recorded V/S: Last Vital Signs Temp 97.0 F 05/29/19 15:56 Pulse 84 05/29/19 15:56 Resp 18 05/29/19 15:56 BP 153/64 H 05/29/19 15:56 Pulse Ox 98 05/29/19 15:56 - Orders/Labs/Meds Orders: Active Orders 24 hr Category Date Time Status CULTURE BLOOD [BC] Stat Lab 05/29/19 17:19 Ordered CULTURE BLOOD [BC] Stat Lab 05/29/19 17:19 Ordered UA W/RACHEL RFLX IF INDICATED [URIN] Stat Lab 05/29/19 17:19 Ordered Sodium Chloride 0.9% [Saline Flush] Med 05/29/19 15:54 Active 10 ml FLUSH ASDIRECTED PRN Sodium Chloride 0.9% [Saline Flush] Med 05/29/19 15:54 Active 2.5 ml FLUSH ASDIRECTED PRN Blood Culture x2 Reflex Set [OM.PC] Stat Oth 05/29/19 17:19 Ordered Saline Lock Insert [OM.PC] Stat Oth 05/29/19 15:54 Ordered Medication Orders Sodium Chloride (Saline Flush) 10 ml FLUSH ASDIRECTED PRN PRN Reason: Keep Vein Open Last Admin: 05/29/19 16:15 Dose: 10 ml Sodium Chloride (Saline Flush) 2.5 ml FLUSH ASDIRECTED PRN PRN Reason: Keep Vein Open Labs: Laboratory Tests 05/29/19 05/29/19 05/29/19 Range/Units 16:00 16:00 16:00 WBC 7.23 (4.0-11.0) K/uL RBC 4.64 (4.30-5.90) M/uL Hgb 12.6 (12.0-16.0) g/dL Hct 40.0 (36.0-46.0) % MCV 86.2 (80.0-98.0) fL MCH 27.2 (27.0-32.0) pg MCHC 31.5 (31.0-37.0) g/dL RDW Std Deviation 46.6 (28.0-62.0) fl RDW Coeff of Demond 15 (11.0-15.0) % Plt Count 290 (150-400) K/uL MPV 10.90 (7.40-12.00) fL Neut % (Auto) 59.8 (48.0-80.0) % Lymph % (Auto) 29.5 (16.0-40.0) % [place] % (Auto) 9.7 (0.0-15.0) % Eos % (Auto) 0.6 (0.0-7.0) % Baso % (Auto) 0.4 (0.0-1.5) % Neut # (Auto) 4.3 (1.4-5.7) K/uL Lymph # (Auto) 2.1 (0.6-2.4) K/uL [place] # (Auto) 0.7 (0.0-0.8) K/uL Eos # (Auto) 0.0 (0.0-0.7) K/uL Baso # (Auto) 0.0 (0.0-0.1) K/uL Nucleated RBC % 0.0 /100WBC Nucleated RBCs # 0 K/uL Lactate 1.4 (0.20-2.00) mmol/L Sodium 140 (136-145) mmol/L Potassium 3.9 (3.5-5.1) mmol/L Chloride 104 (98-107) mmol/L Carbon Dioxide 26.7 (21.0-32.0) mmol/L BUN 12 (7.0-18.0) mg/dL Creatinine 0.9 (0.6-1.0) mg/dL Est Cr Clr Drug Dosing 71.03 mL/min Estimated GFR (MDRD) > 60.0 ml/min Glucose 191 H (74-106) mg/dL Calcium 8.9 (8.5-10.1) mg/dL Magnesium 1.6 L (1.8-2.4) mg/dL Total Bilirubin 0.2 (0.2-1.0) mg/dL AST 13 L (15-37) IU/L ALT 32 (14-63) IU/L Alkaline Phosphatase 45 L (46-116) U/L Total Protein 7.2 (6.4-8.2) g/dL Albumin 3.3 L (3.4-5.0) g/dL Globulin 3.9 (2.6-4.0) g/dL Albumin/Globulin Ratio 0.9 (0.9-1.6) Meds: Medications Generic Name Dose Route Start Last Admin Trade Name Raffaeleq PRN Reason Stop Dose Admin Sodium Chloride 10 ml 05/29/19 15:54 05/29/19 16:15 Saline Flush FLUSH 10 ml ASDIRECTED PRN Administration Keep Vein Open Sodium Chloride 2.5 ml 05/29/19 15:54 Saline Flush FLUSH ASDIRECTED PRN Keep Vein Open Discontinued Medications Generic Name Dose Route Start Last Admin Trade Name Robyn PRN Reason Stop Dose Admin Hydromorphone HCl 1 mg 05/29/19 16:17 05/29/19 16:24 Dilaudid IVPUSH 05/29/19 16:18 1 mg ONETIME ONE Administration Sodium Chloride 1,000 mls @ 999 mls/hr 05/29/19 15:56 05/29/19 16:13 Normal Saline IV 05/29/19 16:56 999 mls/hr .Bolus ONE Administration Departure - Departure Time of Disposition: 17:39 Disposition: DC/Tfer to Acute Hospital 02 Condition: Fair Clinical Impression: Mastoid cholesteatoma Qualifiers: Laterality: left Qualified Code(s): H71.22 - Cholesteatoma of mastoid, left ear Mastoid pain Qualifiers: Laterality: left Qualified Code(s): H92.02 - Otalgia, left ear External otitis of left ear Qualifiers: Otitis externa type: malignant Chronicity: acute Qualified Code(s): H60.22 - Malignant otitis externa, left ear - Discharge Information *PRESCRIPTION DRUG MONITORING PROGRAM REVIEWED*: Yes *COPY OF PRESCRIPTION DRUG MONITORING REPORT IN PATIENT DOV: Yes Referrals: PCP,Unknown [Primary Care Provider] - Forms: ED Department Discharge Sepsis Event Note - Evaluation Sepsis Screening Result: No Definite Risk - Focused Exam Vital Signs: Vital Signs Temp Pulse Resp BP Pulse Ox 05/29/19 15:56 97.0 F 84 18 153/64 H 98 Date Exam was Performed: 05/29/19 Time Exam was Performed: 17:36 - My Orders Last 24 Hours: My Active Orders 05/29/19 15:54 Sodium Chloride 0.9% [Saline Flush] 10 ml FLUSH ASDIRECTED PRN Sodium Chloride 0.9% [Saline Flush] 2.5 ml FLUSH ASDIRECTED PRN Saline Lock Insert [OM.PC] Stat 05/29/19 17:19 CULTURE BLOOD [BC] Stat CULTURE BLOOD [BC] Stat UA W/RACHEL RFLX IF INDICATED [URIN] Stat Blood Culture x2 Reflex Set [OM.PC] Stat - Assessment/Plan Last 24 Hours: My Active Orders 05/29/19 15:54 Sodium Chloride 0.9% [Saline Flush] 10 ml FLUSH ASDIRECTED PRN Sodium Chloride 0.9% [Saline Flush] 2.5 ml FLUSH ASDIRECTED PRN Saline Lock Insert [OM.PC] Stat 05/29/19 17:19 CULTURE BLOOD [BC] Stat CULTURE BLOOD [BC] Stat UA W/RACHEL RFLX IF INDICATED [URIN] Stat Blood Culture x2 Reflex Set [OM.PC] Stat
[2019-05-29 16:34] LABS: BLOOD UREA NITROGEN,BUN 12 mg/dL (7.0-18.0); CARBON DIOXIDE,CO2 26.7 mmol/L (21.0-32.0); CHLORIDE,CL 104 mmol/L (98-107); GLUCOSE RANDOM 191 mg/dL (74-106); POTASSIUM,K 3.9 mmol/L (3.5-5.1); SODIUM,NA 140 mmol/L (136-145)
--- NOTE | 2019-05-29 17:12 | CT ---
CT temporal bones Technique: Multiple axial sections through the temporal bones were obtained. Reconstructed coronal and sagittal images were obtained. Findings: Small amount of fluid and mucosal thickening is seen inferiorly within the right mastoid sinus. More prominent fluid and mucosal thickening is seen within the left mastoid sinus. There is also soft tissue density within the left middle ear cavity surrounding the ossicular masses. Right middle ear cavity is clear. No bony erosions are seen around the semicircular canals or cochlea. Internal auditory canals are symmetric in size. Impression: 1. Mastoid sinus findings as noted above. Findings suspicious for mastoiditis especially on the left side. Probable otitis media on the left side is also noted. Note: Differential also includes cholesteatoma on the left side causing obstruction of the left mastoid sinus and causing findings as described above within the left mastoid sinus. Please correlate if patient's symptoms help differentiate. Diagnostic code #3 Study was dictated in MDT
[2019-05-29 17:38] VITALS: BP 148/76; PULSE 77
== END 2019-05-29 18:10 ==
LOC: MW.ED 15:52
DX: H60.22 Malignant otitis externa, left ear (principal); H71.22 Cholesteatoma of mastoid, left ear; I10 Essential (primary) hypertension; E78.00 Pure hypercholesterolemia, unspecified; I25.2 Old myocardial infarction; J44.9 Chronic obstructive pulmonary disease, unspecified; K21.9 Gastro-esophageal reflux disease without esophagitis; M19.90 Unspecified osteoarthritis, unspecified site; E11.40 Type 2 diabetes mellitus with diabetic neuropathy, unspecified; E66.9 Obesity, unspecified; Z68.38 Body mass index [BMI] 38.0-38.9, adult; Z87.891 Personal history of nicotine dependence; Z96.22 Myringotomy tube(s) status; Z88.5 Allergy status to narcotic agent; Z88.1 Allergy status to other antibiotic agents; Z88.8 Allergy status to other drugs, medicaments and biological substances; Z79.82 Long term (current) use of aspirin; Z79.01 Long term (current) use of anticoagulants; Z79.4 Long term (current) use of insulin; Z79.899 Other long term (current) drug therapy
CPT/HCPCS: 36415; 70480; 80053; 83605; 83735; 85025; 87040; 96361; 96374; 96376; 99285; J1170; J7030; 99284

== ENCOUNTER 2019-10-12 12:43 | Emergency (ER) | payer MEDICARE, MEDICAID ==
--- NOTE | 2019-10-12 13:12 | EDM.PDOC ---
ED HPI GENERAL MEDICAL PROBLEM - General Chief Complaint: Lower Extremity Injury/Pain Stated Complaint: LT FOOT PAIN Time Seen by Provider: 10/12/19 12:46 Source of Information: Reports: Patient History Limitations: Reports: No Limitations - History of Present Illness INITIAL COMMENTS - FREE TEXT/NARRATIVE: HISTORY AND PHYSICAL: History of present illness: Patient is a 44-year-old female who presents to the emergency room for a open sore on her left second toe. She states when she woke up this morning she had noticed the sore on her foot and was concerned as she is diabetic. She does not recall any injury or trauma of the foot. Yesterday before bed she had not noticed any open sores or injury. She states her blood sugars have been running within normal limits. Patient denies any fever, chills, headache, change in vision, syncope or near syncope. Denies any chest pain, back pain, shortness of breath or cough. Denies any abdominal pain, nausea, vomiting, diarrhea, constipation or dysuria. Has not noted any blood in urine or stool. Patient has been eating and drinking appropriately. Review of systems: As per history of present illness and below otherwise all systems reviewed and negative. Past medical history: As per history of present illness and as reviewed below otherwise noncontributory. Surgical history: As per history of present illness and as reviewed below otherwise noncontributory. Social history: See social history for further information Family history: As per history of present illness and as reviewed below otherwise noncontributo ry. Physical exam: General: Developed and well-nourished 44-year-old female. Alert and oriented. Nontoxic-appearing and in no acute distress HEENT: Atraumatic, normocephalic, pupils equal and reactive bilaterally, negative for conjunctival pallor or scleral icterus, mucous membranes moist, trachea midline. No drooling or trismus noted. No meningeal signs. No hot potato voice noted. Lungs: Clear to auscultation, breath sounds equal bilaterally. Heart: S1S2, regular rate and rhythm without overt murmur Abdomen: Soft, nondistended, nontender. Skin: Small eraser sized skin tear to the top of the left second toe below the nail. Intact, warm, dry. No lesions or rashes noted. Extremities: See skin for details, moves all extremities per self without difficulty or deficits, negative for cords or calf pain. Strong pedal and pretibial pulse. Normal variance of neuropathy. Neurovascular unremarkable. Neuro: Awake, alert, oriented. Cranial nerves II through XII unremarkable. Cerebellum unremarkable. Motor and sensory unremarkable throughout. Exam nonfocal. Notes: As the patient did not have any activity other than sleeping from when she last noted the sore free foot until today while in the shower, I do not feel she needs an x-ray. The skin tear/sore is superficial but due to her diabetes history will place her on Keflex. She states she will be able to see her primary care provider on Monday for follow-up and reevaluation. We discussed signs and symptoms that would prompt her to return to the emergency room. Follow-up, medication and supportive care measures were reviewed and discussed. Voices understanding and is agreeable to plan of care. Denies any further questions or concerns at this time. Diagnostics: None Therapeutics: Wound care, bacitracin Prescription: Keflex Impression: Diabetic foot sore Plan: 1. Continue to monitor the toe for signs of improvement. Keep the skin clean and dry. Take the antibiotic as prescribed. If your symptoms should worsen, new symptoms develop or any of the signs and symptoms we discussed should arise please return to the emergency room or call 911 (if needed). 2. Continue to monitor your blood sugars as directed. 3. Call Dr. lynch's office on Monday to set up a follow-up appointment as we discussed. Definitive disposition and diagnosis as appropriate pending reevaluation and review of above. left foot Pain Score (Numeric/FACES): 7 - Related Data Allergies Allergy/AdvReac Type Severity Reaction Status Date / Time doxycycline Allergy Hives Verified 10/12/19 12:58 morphine Allergy Itching Verified 10/12/19 12:58 prednisone Allergy Nausea Verified 10/12/19 12:58 Home Meds: Home Meds Aspirin [Adeel Chewable Aspirin] 81 mg PO DAILY 07/26/14 [History] Apixaban [Eliquis] 5 mg PO BID 01/21/17 [History] Gabapentin [Neurontin] 600 mg PO TID 01/21/17 [History] Insulin Detemir [Levemir] 40 units SQ BID 01/21/17 [History] Albuterol Sulfate 1 unit NEB Q6H PRN 07/18/17 [History] Fenofibrate Nanocrystallized [Fenofibrate] 145 mg PO DAILY 07/18/17 [History] Lisinopril 5 mg PO DAILY 07/18/17 [History] Metoprolol Succinate 50 mg PO DAILY 07/18/17 [History] atorvaSTATin Calcium [Atorvastatin Calcium] 40 mg PO BEDTIME 07/18/17 [History] dilTIAZem HCL [Dilt-Xr] 180 mg PO DAILY 07/18/17 [History] traMADol [Ultram] 2 tab PO TID PRN 07/18/17 [History] Omeprazole 20 mg PO ACBREAKFAST 11/07/17 [History] Oxymetazoline [Afrin Original 0.05% Nasal [place]] 1 spray NASBOTH . NEEDED PRN 11/07/17 [History] Insulin Aspart [NovoLOG] 250 units SUBCUT Q24H 06/19/18 [History] Liraglutide [Victoza] 1.8 mg SUBCUT DAILY 06/19/18 [History] Sucralfate 1 gm PO QIDACANDBED 06/19/18 [History] Ondansetron [Zofran] 4 mg PO Q6H PRN 07/17/18 [History] Isosorbide Mononitrate [Isosorbide Mononitrate ER] 50 mg PO DAILY 03/25/19 [History] Nitroglycerin 0.4 mg SL Q5M PRN MDD 3 doses 03/25/19 [History] Ranolazine [Ranexa] 1,000 mg PO Q12H 03/25/19 [History] Albuterol Sulfate [Proair Hfa] 2 puff INH QID PRN #1 hfa.aer.ad 03/26/19 [Rx] cephALEXin [Keflex] 500 mg PO Q8H 7 Days #21 cap 10/12/19 [Rx] Past Medical History HEENT History: Reports: Glaucoma, Impaired Vision, Other (See Below) Other HEENT History: needs glasses but doesnt wear them Cardiovascular History: Reports: Angina, High Cholesterol, Hypertension, OR, Stents, Other (See Below) Other Cardiovascular History: hx of OR with cardiac stenting. 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: Musculoskeletal History: Reports: Arthritis Other Musculoskeletal History: rt leg below the knee amputation Neurological History: Reports: Headaches, Chronic, Neuropathy, Diabetic, Other (See Below) Other Neuro History: hx: Headaches Psychiatric History: Reports: None Endocrine/Metabolic History: Reports: Diabetes, Type II, Obesity/BMI 30+ Hematologic History: Reports: Anemia, Blood Transfusion(s) Other Hematologic History: hx blood clots Immunologic History: Reports: None Oncologic (Cancer) History: Reports: None Dermatologic History: Reports: None - Infectious Disease History Infectious Disease History: Reports: None - Past Surgical History Head Surgeries/Procedures: Reports: None HEENT Surgical History: Reports: Myringotomy w Tube(s) Other HEENT Surgeries/Procedures: tube placement Cardiovascular Surgical History: Reports: Coronary Artery Stent Other Cardiovascular Surgeries/Procedures: 2014 Respiratory Surgical History: Reports: None GI Surgical History: Reports: Cholecystectomy, Colonoscopy, EGD Female Surgical History: Reports: Hysterectomy Endocrine Surgical History: Reports: None Neurological Surgical History: Reports: None Musculoskeletal Surgical History: Reports: Amputation, Carpal Tunnel Other Musculoskeletal Surgeries/Procedures:: R below the knee amputation Oncologic Surgical History: Reports: None Dermatological Surgical History: Reports: None Social & Family History - Family History Family Medical History: Noncontributory HEENT: Reports: Cataract, Impaired Vision, Otitis Media, Sinusitis Cardiac: Reports: High Cholesterol, Hypertension, OR Other Cardiac Family History: heart problems maternal and paternal sides Respiratory: Reports: Asthma, COPD, Sleep Apnea GI: Reports: None Musculoskeletal: Reports: Arthritis, Gout Neurological: Reports: CVA Psychiatric: Reports: None Endocrine/Metabolic: Reports: Diabetes, Type I, Diabetes, type II, Hyperthyroidism, Obesity/MBI 30+ Hematologic: Reports: Anemia Oncologic: Reports: Lung - Tobacco Use Smoking Status *Q: Former Smoker Used Tobacco, but Quit: Yes Month/Year Tobacco Last Used: 2016 - Caffeine Use Caffeine Use: Reports: Soda Caffeine Use Comment: "sometimes" - Recreational Drug Use Recreational Drug Use: No Review of Systems - Review of Systems Review Of Systems: Comprehensive ROS is negative, except as noted in HPI. ED EXAM, GENERAL - Physical Exam Exam: See Below (See dictation) Course - Vital Signs Last Recorded V/S: Last Vital Signs Temp 98.0 F 10/12/19 12:58 Pulse 89 10/12/19 12:58 Resp 18 10/12/19 12:58 BP 149/81 H 10/12/19 12:58 Pulse Ox 97 10/12/19 12:58 - Orders/Labs/Meds Meds: Medications Discontinued Medications Generic Name Dose Route Start Last Admin Trade Name Rboyn PRN Reason Stop Dose Admin Bacitracin 1 dose 10/12/19 13:13 Bacitracin Oint 1 Gm TOP 10/12/19 13:14 ONETIME ONE Departure - Departure Time of Disposition: 13:19 Disposition: Home, Self-Care 01 Clinical Impression: Diabetic foot infection - Discharge Information Prescriptions: cephALEXin [Keflex] 500 mg PO Q8H 7 Days #21 cap Instructions: Diabetes Mellitus and Foot Care, Type 2 Diabetes Mellitus, Self Care, Adult, [id number] Referrals: Con Lynch MD [Primary Care Provider] - Forms: ED Department Discharge Additional Instructions: The following information is given to patients seen in the emergency department who are being discharged to home. This information is to outline your options for follow-up care. We provide all patients seen in our emergency department with a follow-up referral. The need for follow-up, as well as the timing and circumstances, are variable depending upon the specifics of your emergency department visit. If you don't have a primary care physician on staff, we will provide you with a referral. We always advise you to contact your personal physician following an emergency department visit to inform them of the circumstance of the visit and for follow-up with them and/or the need for any referrals to a consulting specialist. The emergency department will also refer you to a specialist when appropriate. This referral assures that you have the opportunity for follow-up care with a specialist. All of these measure are taken in an effort to provide you with optimal care, which includes your follow-up. Under all circumstances we always encourage you to contact your private physician who remains a resource for coordinating your care. When calling for follow-up care, please make the office aware that this follow-up is from your recent emergency room visit. If for any reason you are refused follow-up, please contact the [facility] Emergency Department at and asked to speak to the emergency department charge nurse. [facility] [address] [place] [address] [facility] [address] [place] [address] Thank you for choosing the [facility] emergency department in [place] for your medical needs today. It was a pleasure caring for you. You were seen in the emergency department for sore on foot with history of diabetes. 1. Continue to monitor the toe for signs of improvement. Keep the skin clean and dry. Take the antibiotic as prescribed. If your symptoms should worsen, new symptoms develop or any of the signs and symptoms we discussed should arise please return to the emergency room or call 911 (if needed). 2. Continue to monitor your blood sugars as directed. 3. Call Dr. lynch's office on Monday to set up a follow-up appointment as we discussed. Sepsis Event Note (ED) - Evaluation Sepsis Screening Result: No Definite Risk - Focused Exam Vital Signs: Vital Signs Temp Pulse Resp BP Pulse Ox 10/12/19 12:58 98.0 F 89 18 149/81 H 97
[2019-10-12] MEDS ORDERED: Bacitracin Oint 1 GM U/D Packet TOP ONE (13:13)
[2019-10-12 13:23] VITALS: BP 135/75; PULSE 58
== END 2019-10-12 13:22 | disposition home or self-care (01) ==
LOC: MW.ED 12:43
DX: E11.628 Type 2 diabetes mellitus with other skin complications (principal); L08.9 Local infection of the skin and subcutaneous tissue, unspecified; E78.00 Pure hypercholesterolemia, unspecified; I10 Essential (primary) hypertension; I25.2 Old myocardial infarction; J44.9 Chronic obstructive pulmonary disease, unspecified; K21.9 Gastro-esophageal reflux disease without esophagitis; M19.90 Unspecified osteoarthritis, unspecified site; E11.40 Type 2 diabetes mellitus with diabetic neuropathy, unspecified; E66.9 Obesity, unspecified; Z68.41 Body mass index [BMI] 40.0-44.9, adult; Z79.82 Long term (current) use of aspirin; Z79.4 Long term (current) use of insulin; Z95.5 Presence of coronary angioplasty implant and graft; Z87.891 Personal history of nicotine dependence
CPT/HCPCS: 99282

== ENCOUNTER 2020-03-05 16:46 | Observation (INO) | payer MEDICARE, MEDICAID ==
[2020-03-05] MEDS ORDERED: HYDROmorphone 1 MG/ML Syringe IVPUSH ONE (16:59)
--- NOTE | 2020-03-05 17:05 | EDM.PDOC ---
ED HPI GENERAL MEDICAL PROBLEM - General Chief Complaint: Chest Pain Stated Complaint: CHEST PAIN Time Seen by Provider: 03/05/20 16:49 Source of Information: Reports: Patient History Limitations: Reports: No Limitations - History of Present Illness INITIAL COMMENTS - FREE TEXT/NARRATIVE: Patient is a 44-year-old female who presents today for right-sided chest pain that started about 2 hours ago. Patient has the pain is been constant and does not radiate not made better or worse with any events. Patient states he took aspirin and 2 nitro did not relieve the pain. Patient otherwise denies any shortness of breath fever chills nausea vomiting no other complaints. - Related Data Allergies Allergy/AdvReac Type Severity Reaction Status Date / Time doxycycline Allergy Hives Verified 10/12/19 12:58 morphine Allergy Itching Verified 10/12/19 12:58 prednisone Allergy Nausea Verified 10/12/19 12:58 Home Meds: Home Meds Aspirin [Adeel Chewable Aspirin] 81 mg PO DAILY 07/26/14 [History] Apixaban [Eliquis] 5 mg PO BID 01/21/17 [History] Gabapentin [Neurontin] 600 mg PO TID 01/21/17 [History] Insulin Detemir [Levemir] 40 units SQ BID 01/21/17 [History] Albuterol Sulfate 1 unit NEB Q6H PRN 07/18/17 [History] Fenofibrate Nanocrystallized [Fenofibrate] 145 mg PO DAILY 07/18/17 [History] Lisinopril 5 mg PO DAILY 07/18/17 [History] Metoprolol Succinate 50 mg PO DAILY 07/18/17 [History] atorvaSTATin Calcium [Atorvastatin Calcium] 40 mg PO BEDTIME 07/18/17 [History] dilTIAZem HCL [Dilt-Xr] 180 mg PO DAILY 07/18/17 [History] traMADol [Ultram] 2 tab PO TID PRN 07/18/17 [History] Omeprazole 20 mg PO ACBREAKFAST 11/07/17 [History] Oxymetazoline [Afrin Original 0.05% Nasal [place]] 1 spray NASBOTH . NEEDED PRN 11/07/17 [History] Insulin Aspart [NovoLOG] 250 units SUBCUT Q24H 06/19/18 [History] Liraglutide [Victoza] 1.8 mg SUBCUT DAILY 06/19/18 [History] Sucralfate 1 gm PO QIDACANDBED 06/19/18 [History] Ondansetron [Zofran] 4 mg PO Q6H PRN 07/17/18 [History] Isosorbide Mononitrate [Isosorbide Mononitrate ER] 50 mg PO DAILY 03/25/19 [History] Nitroglycerin 0.4 mg SL Q5M PRN MDD 3 doses 03/25/19 [History] Ranolazine [Ranexa] 1,000 mg PO Q12H 03/25/19 [History] Albuterol Sulfate [Proair Hfa] 2 puff INH QID PRN #1 hfa.aer.ad 03/26/19 [Rx] cephALEXin [Keflex] 500 mg PO Q8H 7 Days #21 cap 10/12/19 [Rx] Past Medical History HEENT History: Reports: Glaucoma, Impaired Vision, Other (See Below) Other HEENT History: needs glasses but doesnt wear them Cardiovascular History: Reports: Angina, High Cholesterol, Hypertension, CA, Stents, Other (See Below) Other Cardiovascular History: hx of CA with cardiac stenting. 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: Musculoskeletal History: Reports: Arthritis Other Musculoskeletal History: rt leg below the knee amputation Neurological History: Reports: Headaches, Chronic, Neuropathy, Diabetic, Other (See Below) Other Neuro History: hx: Headaches Psychiatric History: Reports: None Endocrine/Metabolic History: Reports: Diabetes, Type II, Obesity/BMI 30+ Hematologic History: Reports: Anemia, Blood Transfusion(s) Other Hematologic History: hx blood clots Immunologic History: Reports: None Oncologic (Cancer) History: Reports: None Dermatologic History: Reports: None - Infectious Disease History Infectious Disease History: Reports: None - Past Surgical History Head Surgeries/Procedures: Reports: None HEENT Surgical History: Reports: Myringotomy w Tube(s) Other HEENT Surgeries/Procedures: tube placement Cardiovascular Surgical History: Reports: Coronary Artery Stent Other Cardiovascular Surgeries/Procedures: 2014 Respiratory Surgical History: Reports: None GI Surgical History: Reports: Cholecystectomy, Colonoscopy, EGD Female Surgical History: Reports: Hysterectomy Endocrine Surgical History: Reports: None Neurological Surgical History: Reports: None Musculoskeletal Surgical History: Reports: Amputation, Carpal Tunnel Other Musculoskeletal Surgeries/Procedures:: R below the knee amputation Oncologic Surgical History: Reports: None Dermatological Surgical History: Reports: None Social & Family History - Family History Family Medical History: No Pertinent Family History HEENT: Reports: Cataract, Impaired Vision, Otitis Media, Sinusitis Cardiac: Reports: High Cholesterol, Hypertension, CA Other Cardiac Family History: heart problems maternal and paternal sides Respiratory: Reports: Asthma, COPD, Sleep Apnea GI: Reports: None Musculoskeletal: Reports: Arthritis, Gout Neurological: Reports: CVA Psychiatric: Reports: None Endocrine/Metabolic: Reports: Diabetes, Type I, Diabetes, type II, Hyperthyroidism, Obesity/MBI 30+ Hematologic: Reports: Anemia Oncologic: Reports: Lung - Caffeine Use Caffeine Use: Reports: Soda Caffeine Use Comment: "sometimes" ED ROS GENERAL - Review of Systems Review Of Systems: See Below Constitutional: Reports: No Symptoms HEENT: Reports: No Symptoms Respiratory: Reports: No Symptoms Cardiovascular: Reports: Chest Pain Endocrine: Reports: No Symptoms GI/Abdominal: Reports: No Symptoms : Reports: No Symptoms Musculoskeletal: Reports: No Symptoms Skin: Reports: No Symptoms Neurological: Reports: No Symptoms Psychiatric: Reports: No Symptoms Hematologic/Lymphatic: Reports: No Symptoms Immunologic: Reports: No Symptoms ED EXAM, GENERAL - Physical Exam Exam: See Below Exam Limited By: No Limitations General Appearance: Alert Head: Atraumatic Respiratory/Chest: No Respiratory Distress, Lungs Clear, Normal Breath Sounds Cardiovascular: Normal Peripheral Pulses, Regular Rate, Rhythm GI/Abdominal: Normal Bowel Sounds, Soft, Non-Tender Neurological: Alert, Oriented, CN II-XII Intact, Normal Cognition, Normal Gait Course - Vital Signs Last Recorded V/S: Last Vital Signs Temp Pulse 74 03/05/20 17:41 Resp 16 03/05/20 17:41 BP 113/76 03/05/20 17:41 Pulse Ox 96 03/05/20 17:41 - Orders/Labs/Meds Orders: Active Orders 24 hr Category Date Time Status B-TYPE NATRIURETIC PEPTIDE,BNP [CHEM] Stat Lab 03/05/20 16:52 Received CORONAVIRUS COVID-19 WILFREDO [MOLEC] Stat Lab 03/05/20 18:19 Received TROPONIN I [CHEM] Stat Lab 03/05/20 20:00 Ordered Labs: Laboratory Tests 03/05/20 03/05/20 03/05/20 Range/Units 16:52 16:52 16:55 WBC 7.09 (4.0-11.0) K/uL RBC 4.86 (4.30-5.90) M/uL Hgb 13.8 (12.0-16.0) g/dL Hct 42.8 (36.0-46.0) % MCV 88.1 (80.0-98.0) fL MCH 28.4 (27.0-32.0) pg MCHC 32.2 (31.0-37.0) g/dL RDW Std Deviation 47.2 (28.0-62.0) fl RDW Coeff of Demond 15 (11.0-15.0) % Plt Count 269 (150-400) K/uL MPV 11.00 (7.40-12.00) fL Neut % (Auto) 58.3 (48.0-80.0) % Lymph % (Auto) 34.8 (16.0-40.0) % Wheeler % (Auto) 6.3 (0.0-15.0) % Eos % (Auto) 0.3 (0.0-7.0) % Baso % (Auto) 0.3 (0.0-1.5) % Neut # (Auto) 4.1 (1.4-5.7) K/uL Lymph # (Auto) 2.5 H (0.6-2.4) K/uL Wheeler # (Auto) 0.5 (0.0-0.8) K/uL Eos # (Auto) 0.0 (0.0-0.7) K/uL Baso # (Auto) 0.0 (0.0-0.1) K/uL Nucleated RBC % 0.0 /100WBC Nucleated RBCs # 0 K/uL Sodium 137 (136-145) mmol/L Potassium 3.9 (3.5-5.1) mmol/L Chloride 101 (98-107) mmol/L Carbon Dioxide 25.3 (21.0-32.0) mmol/L BUN 11 (7.0-18.0) mg/dL Creatinine 1.2 H (0.6-1.0) mg/dL Est Cr Clr Drug Dosing TNP Estimated GFR (MDRD) 48.6 ml/min Glucose 229 H (74-106) mg/dL POC Glucose 226 H (60-110) mg/dL Calcium 9.0 (8.5-10.1) mg/dL Total Bilirubin 0.4 (0.2-1.0) mg/dL AST 26 (15-37) IU/L ALT 38 (14-63) IU/L Alkaline Phosphatase 36 L (46-116) U/L Creatine Kinase 52 (26-308) U/L Troponin I < 0.050 (0.000-0.056) ng/mL Total Protein 7.4 (6.4-8.2) g/dL Albumin 3.6 (3.4-5.0) g/dL Globulin 3.8 (2.6-4.0) g/dL Albumin/Globulin Ratio 0.9 (0.9-1.6) Meds: Medications Discontinued Medications Generic Name Dose Route Start Last Admin Trade Name Freq PRN Reason Stop Dose Admin Hydromorphone HCl 1 mg 03/05/20 16:59 03/05/20 17:09 Dilaudid IVPUSH 03/05/20 17:00 1 mg ONETIME ONE Administration Ondansetron HCl Confirm 03/05/20 17:12 03/05/20 17:18 Zofran Administered 03/05/20 17:13 Not Given Dose 4 mg .ROUTE .STK-MED ONE Ondansetron HCl 4 mg 03/05/20 17:17 03/05/20 17:18 Zofran IVPUSH 03/05/20 17:18 4 mg ONETIME ONE Administration - Re-Assessments/Exams Free Text/Narrative Re-Assessment/Exam: 03/05/20 18:45 Which are negative and EKG shows no ischemic changes. Patient 7 chest pain will admit and have troponins trended. Spoke to the hospital who will admit patient to telemetry for observation. Departure - Departure Time of Disposition: 18:46 Disposition: Admitted As Inpatient 65 Condition: Good Clinical Impression: ACS (acute coronary syndrome) - Discharge Information *PRESCRIPTION DRUG MONITORING PROGRAM REVIEWED*: Not Applicable *COPY OF PRESCRIPTION DRUG MONITORING REPORT IN PATIENT DOV: Not Applicable Forms: ED Department Discharge Sepsis Event Note (ED) - Focused Exam Vital Signs: Vital Signs Pulse Resp BP Pulse Ox 03/05/20 17:41 74 16 113/76 96 - My Orders Last 24 Hours: My Active Orders 03/05/20 16:52 B-TYPE NATRIURETIC PEPTIDE,BNP [CHEM] Stat 03/05/20 18:19 CORONAVIRUS COVID-19 WILFREDO [MOLEC] Stat 03/05/20 20:00 TROPONIN I [CHEM] Stat - Assessment/Plan Last 24 Hours: My Active Orders 03/05/20 16:52 B-TYPE NATRIURETIC PEPTIDE,BNP [CHEM] Stat 03/05/20 18:19 CORONAVIRUS COVID-19 WILFREDO [MOLEC] Stat 03/05/20 20:00 TROPONIN I [CHEM] Stat Assessment:: Is a 44-year-old female presents today for chest pain. Patient states pain started 2 hours ago. Patient has a heart score of 4 due to age and risk factors. Will obtain 2 troponins and possible admission for observation.
[2020-03-05] MEDS ORDERED: Ondansetron 4 MG/2 ML SDV ONE (17:12)
[2020-03-05] MEDS ORDERED: Ondansetron 4 MG/2 ML SDV IVPUSH ONE (17:17)
[2020-03-05 17:28] LABS: BLOOD UREA NITROGEN,BUN 11 mg/dL (7.0-18.0); CARBON DIOXIDE,CO2 25.3 mmol/L (21.0-32.0); CHLORIDE,CL 101 mmol/L (98-107); GLUCOSE RANDOM 229 mg/dL (74-106); POTASSIUM,K 3.9 mmol/L (3.5-5.1); SODIUM,NA 137 mmol/L (136-145)
--- NOTE | 2020-03-05 17:56 | CR ---
INDICATION: chest pain right sided near apex TECHNIQUE: Chest 2 views. COMPARISON: 03/25/19 FINDINGS: Cardiovascular and mediastinum: Heart size and vasculature are normal in caliber and appearance. Mediastinum is within normal limits. Lungs and pleural spaces: Lungs are clear. No sign of infiltrate or mass. No sign of pleural effusion. No pneumothorax. Bones and soft tissues: No significant findings. IMPRESSION: Unremarkable chest. Dictated by: Catracho Sheridan MD @ 03/05/2020 17:54:43 (Electronically Signed)
[2020-03-05] MEDS ORDERED: Ketorolac 15 MG/ML SDV IVPUSH ONE (19:27)
[2020-03-05] MEDS ORDERED: HYDROmorphone 2 MG/ML Syringe IVPUSH PRN (19:28)
[2020-03-05] MEDS ORDERED: Ondansetron 4 MG Tab.DIS PO PRN (19:28)
[2020-03-05] MEDS ORDERED: Pantoprazole 40 MG Vial IV SCH (19:30)
[2020-03-05] MEDS ORDERED: 50% Dextrose in Water 50 ML Syringe IV PRN ×3 (19:40→22:45)
[2020-03-05] MEDS ORDERED: Glucagon,Human Recombinant 1 MG Vial IM PRN ×3 (19:40→22:45)
[2020-03-05] MEDS ORDERED: Albuterol 6.7 GM Inhaler INH PRN (19:43)
[2020-03-05] MEDS ORDERED: Albuterol 0.083% 2.5 MG/3 ML Neb Soln NEB PRN (19:43)
[2020-03-05] MEDS ORDERED: Nitroglycerin 0.4 MG Tab.SL SL PRN (19:43)
--- NOTE | 2020-03-05 19:57 | PCM.HP.2 ---
<Jenny Ruth - Last Filed: 03/05/20 19:50> H&P History of Present Illness - General Date of Service: 03/05/20 Admit Problem/Dx: Admission Diagnosis/Problem ACS rule Source of Information: Patient History Limitations: Reports: No Limitations - History of Present Illness Initial Comments - Free Text/Narative: Patient is a 44-year-old female with significant past medical history of coronary artery disease requiring a stent placement for an DE 4 years ago. Patient also has previous history of hypertension, hyperlipidemia, ex-smoker of 3 years, diabetes mellitus, obesity, COPD and asthma. Patient comes in today to the ED for right-sided chest pain described as being constant, squeezing, worse with activity and relieved by rest. Has had similar episodes in the past year but intermittent episodes resolved after Dr. Cardona in cardiology increased her medications. Patient states that she had tried taking 3 nitros, without her symptoms resolving. Patient describes pain as 8 out of 10, radiating to her right shoulder. Denies any weakness, shortness of breath, palpitations, syncope or presyncope. Furthermore denies any fever, cough, chills, sick contacts or recent travel. ER course: Chest x-ray, EKG, troponins, CBC, CMP, given Zofran, Dilaudid, BNP and Covid swab Onset of Symptoms: Reports: Today Quality: Reports: Pressure, Same as Previous Episode Severity: Moderate Improves with: Reports: Rest Worsens with: Reports: Immobilization, Movement Context: Denies: Sick Contact, Travel Associated Symptoms: Reports: Chest Pain. Denies: Cough, Diaphoresis, Fever/Chills, Headaches, Loss of Appetite, Nausea/Vomiting, Rash, Seizure, Syncope, Weakness chest Pain Score (Numeric/FACES): 5 - Related Data Allergies/Adverse Reactions: Allergies Allergy/AdvReac Type Severity Reaction Status Date / Time doxycycline Allergy Hives Verified 03/05/20 21:15 morphine Allergy Itching Verified 03/05/20 21:15 prednisone Allergy Nausea Verified 03/05/20 21:15 Home Medications: Home Meds Aspirin [Aedel Chewable Aspirin] 81 mg PO DAILY 07/26/14 [History] Apixaban [Eliquis] 5 mg PO BID 01/21/17 [History] Gabapentin [Neurontin] 600 mg PO TID 01/21/17 [History] Insulin Detemir [Levemir] 100 units SQ BEDTIME 01/21/17 [History] Albuterol Sulfate 1 unit NEB Q6H PRN 07/18/17 [History] Fenofibrate Nanocrystallized [Fenofibrate] 145 mg PO DAILY 07/18/17 [History] Lisinopril 5 mg PO DAILY 07/18/17 [History] Metoprolol Succinate 50 mg PO DAILY 07/18/17 [History] atorvaSTATin Calcium [Atorvastatin Calcium] 20 mg PO BEDTIME 07/18/17 [History] dilTIAZem HCL [Dilt-Xr] 180 mg PO BEDTIME 07/18/17 [History] traMADol [Ultram] 2 tab PO TID PRN 07/18/17 [History] Omeprazole 20 mg PO ACBREAKFAST 11/07/17 [History] Oxymetazoline [Afrin Original 0.05% Nasal [place]] 1 spray NASBOTH . NEEDED PRN 11/07/17 [History] Insulin Aspart [NovoLOG] 250 units SUBCUT TID 06/19/18 [History] Liraglutide [Victoza] 1.8 mg SUBCUT DAILY 06/19/18 [History] Sucralfate 1 gm PO QIDACANDBED 06/19/18 [History] Ondansetron [Zofran] 4 mg PO Q6H PRN 07/17/18 [History] Isosorbide Mononitrate [Isosorbide Mononitrate ER] 100 mg PO BEDTIME 03/25/19 [History] Nitroglycerin 0.4 mg SL Q5M PRN MDD 3 doses 03/25/19 [History] Ranolazine [Ranexa] 1,000 mg PO Q12H 03/25/19 [History] Albuterol Sulfate [Proair Hfa] 2 puff INH QID PRN #1 hfa.aer.ad 03/26/19 [Rx] cephALEXin [Keflex] 500 mg PO Q8H 7 Days #21 cap 10/12/19 [Rx] Insulin Detemir [Levemir] 75 units SQ DAILY 03/05/20 [History] Past Medical History HEENT History: Reports: Glaucoma, Impaired Vision, Other (See Below) Other HEENT History: needs glasses but doesnt wear them Cardiovascular History: Reports: Angina, High Cholesterol, Hypertension, DE, Stents, Other (See Below) Other Cardiovascular History: hx of DE with cardiac stenting. hx of blood clots Respiratory History: Reports: Asthma, Bronchitis, Recurrent, COPD, Pneumonia, Recurrent Other Respiratory History: COPD with Nebulizer treatments and inhaler - better since she stoped smoking 01/28, Hx of bronchitis annd pneumonia Gastrointestinal History: Reports: GERD, Hiatal Hernia Genitourinary History: Reports: None [employer] History: Reports: Musculoskeletal History: Reports: Arthritis Other Musculoskeletal History: rt leg below the knee amputation Neurological History: Reports: Headaches, Chronic, Neuropathy, Diabetic, Other (See Below) Other Neuro History: hx: Headaches Psychiatric History: Reports: None Endocrine/Metabolic History: Reports: Diabetes, Type II, Obesity/BMI 30+ Hematologic History: Reports: Anemia, Blood Transfusion(s) Other Hematologic History: hx blood clots Immunologic History: Reports: None Oncologic (Cancer) History: Reports: None Dermatologic History: Reports: None - Infectious Disease History Infectious Disease History: Reports: None - Past Surgical History Head Surgeries/Procedures: Reports: None HEENT Surgical History: Reports: Myringotomy w Tube(s) Other HEENT Surgeries/Procedures: tube placement Cardiovascular Surgical History: Reports: Coronary Artery Stent Other Cardiovascular Surgeries/Procedures: 2014 Respiratory Surgical History: Reports: None GI Surgical History: Reports: Cholecystectomy, Colonoscopy, EGD Female Surgical History: Reports: Hysterectomy Endocrine Surgical History: Reports: None Neurological Surgical History: Reports: None Musculoskeletal Surgical History: Reports: Amputation, Carpal Tunnel Other Musculoskeletal Surgeries/Procedures:: R below the knee amputation Oncologic Surgical History: Reports: None Dermatological Surgical History: Reports: None Social & Family History - Family History Family Medical History: No Pertinent Family History HEENT: Reports: Cataract, Impaired Vision, Otitis Media, Sinusitis Cardiac: Reports: High Cholesterol, Hypertension, DE Other Cardiac Family History: heart problems maternal and paternal sides Respiratory: Reports: Asthma, COPD, Sleep Apnea GI: Reports: None Musculoskeletal: Reports: Arthritis, Gout Neurological: Reports: CVA Psychiatric: Reports: None Endocrine/Metabolic: Reports: Diabetes, Type I, Diabetes, type II, Hyperthyroidism, Obesity/MBI 30+ Hematologic: Reports: Anemia Oncologic: Reports: Lung - Tobacco Use Tobacco Use Status *Q: Never Tobacco User Second Hand Smoke Exposure: No - Caffeine Use Caffeine Use: Reports: Soda Caffeine Use Comment: "sometimes" - Recreational Drug Use Recreational Drug Use: No H&P Review of Systems - Review of Systems: Review Of Systems: Comprehensive ROS is negative, except as noted in HPI. General: Reports: No Symptoms HEENT: Reports: No Symptoms Pulmonary: Reports: No Symptoms Cardiovascular: Reports: Chest Pain Gastrointestinal: Reports: No Symptoms Genitourinary: Reports: No Symptoms Musculoskeletal: Reports: No Symptoms Skin: Reports: No Symptoms Psychiatric: Reports: No Symptoms Exam - Exam Exam: See Below - Vital Signs Vital Signs: Last Vital Signs Temp 98.2 F 03/05/20 16:46 Pulse 77 03/05/20 19:49 Resp 16 03/05/20 19:49 BP 140/73 03/05/20 19:49 Pulse Ox 95 03/05/20 19:49 - Exam Quality Assessment: DVT Prophylaxis General: Alert, Oriented, Cooperative, Mild Distress HEENT: Conjunctiva Clear, EACs Clear, EOMI, Hearing Intact, Mucosa Moist & [place], Nares Patent, Normal Nasal Septum, Posterior Pharynx Clear, Pupils Equal, Pupils Reactive, TMs Clear Neck: Supple, Trachea Midline Lungs: Clear to Auscultation, Normal Respiratory Effort Cardiovascular: Regular Rate, Regular Rhythm GI/Abdominal Exam: Normal Bowel Sounds, Soft, Non-Tender, No Organomegaly, No Distention, No Mass Extremities: Normal Inspection, Normal Range of Motion, Non-Tender, No Pedal Edema, Normal Capillary Refill Peripheral Pulses: 2+: Radial (L), Radial (R), Posterior Tibial (L), Posterior Tibial (R) Skin: Warm, Dry, Intact Neurological: Cranial Nerves Intact, Reflexes Equal Bilateral Neuro Extensive - Mental Status: Alert, Oriented x3, Normal Mood/Affect, Normal Cognition, Memory Intact Neuro Extensive - Motor, Sensory, Reflexes: CN II-XII Intact, Normal Gait, Normal Reflexes Psychiatric: Alert, Normal Affect, Normal Mood - Patient Data Lab Results Last 24 hrs: Laboratory Results - last 24 hr 03/05/20 03/05/20 03/05/20 Range/Units 16:52 16:52 16:55 WBC 7.09 (4.0-11.0) K/uL RBC 4.86 (4.30-5.90) M/uL Hgb 13.8 (12.0-16.0) g/dL Hct 42.8 (36.0-46.0) % MCV 88.1 (80.0-98.0) fL MCH 28.4 (27.0-32.0) pg MCHC 32.2 (31.0-37.0) g/dL RDW Std Deviation 47.2 (28.0-62.0) fl RDW Coeff of Demond 15 (11.0-15.0) % Plt Count 269 (150-400) K/uL MPV 11.00 (7.40-12.00) fL Neut % (Auto) 58.3 (48.0-80.0) % Lymph % (Auto) 34.8 (16.0-40.0) % [place] % (Auto) 6.3 (0.0-15.0) % Eos % (Auto) 0.3 (0.0-7.0) % Baso % (Auto) 0.3 (0.0-1.5) % Neut # (Auto) 4.1 (1.4-5.7) K/uL Lymph # (Auto) 2.5 H (0.6-2.4) K/uL [place] # (Auto) 0.5 (0.0-0.8) K/uL Eos # (Auto) 0.0 (0.0-0.7) K/uL Baso # (Auto) 0.0 (0.0-0.1) K/uL Nucleated RBC % 0.0 /100WBC Nucleated RBCs # 0 K/uL Sodium 137 (136-145) mmol/L Potassium 3.9 (3.5-5.1) mmol/L Chloride 101 (98-107) mmol/L Carbon Dioxide 25.3 (21.0-32.0) mmol/L BUN 11 (7.0-18.0) mg/dL Creatinine 1.2 H (0.6-1.0) mg/dL Est Cr Clr Drug Dosing TNP Estimated GFR (MDRD) 48.6 ml/min Glucose 229 H (74-106) mg/dL POC Glucose 226 H (60-110) mg/dL Calcium 9.0 (8.5-10.1) mg/dL Total Bilirubin 0.4 (0.2-1.0) mg/dL AST 26 (15-37) IU/L ALT 38 (14-63) IU/L Alkaline Phosphatase 36 L (46-116) U/L Creatine Kinase 52 (26-308) U/L Troponin I < 0.050 (0.000-0.056) ng/mL Total Protein 7.4 (6.4-8.2) g/dL Albumin 3.6 (3.4-5.0) g/dL Globulin 3.8 (2.6-4.0) g/dL Albumin/Globulin Ratio 0.9 (0.9-1.6) SARS-CoV-2 RNA ([place]ILFREDO) (NEGATIVE) 03/05/20 Range/Units 18:19 WBC (4.0-11.0) K/uL RBC (4.30-5.90) M/uL Hgb (12.0-16.0) g/dL Hct (36.0-46.0) % MCV (80.0-98.0) fL MCH (27.0-32.0) pg MCHC (31.0-37.0) g/dL RDW Std Deviation (28.0-62.0) fl RDW Coeff of Demond (11.0-15.0) % Plt Count (150-400) K/uL MPV (7.40-12.00) fL Neut % (Auto) (48.0-80.0) % Lymph % (Auto) (16.0-40.0) % [place] % (Auto) (0.0-15.0) % Eos % (Auto) (0.0-7.0) % Baso % (Auto) (0.0-1.5) % Neut # (Auto) (1.4-5.7) K/uL Lymph # (Auto) (0.6-2.4) K/uL [place] # (Auto) (0.0-0.8) K/uL Eos # (Auto) (0.0-0.7) K/uL Baso # (Auto) (0.0-0.1) K/uL Nucleated RBC % /100WBC Nucleated RBCs # K/uL Sodium (136-145) mmol/L Potassium (3.5-5.1) mmol/L Chloride (98-107) mmol/L Carbon Dioxide (21.0-32.0) mmol/L BUN (7.0-18.0) mg/dL Creatinine (0.6-1.0) mg/dL Est Cr Clr Drug Dosing Estimated GFR (MDRD) ml/min Glucose (74-106) mg/dL POC Glucose (60-110) mg/dL Calcium (8.5-10.1) mg/dL Total Bilirubin (0.2-1.0) mg/dL AST (15-37) IU/L ALT (14-63) IU/L Alkaline Phosphatase (46-116) U/L Creatine Kinase (26-308) U/L Troponin I (0.000-0.056) ng/mL Total Protein (6.4-8.2) g/dL Albumin (3.4-5.0) g/dL Globulin (2.6-4.0) g/dL Albumin/Globulin Ratio (0.9-1.6) SARS-CoV-2 RNA ([place]IL[place]EDO) NEGATIVE (NEGATIVE) Result Diagrams: 03/05/20 16:52 03/05/20 16:52 Sepsis Event Note - Evaluation Sepsis Screening Result: No Definite Risk - Focused Exam Vital Signs: Vital Signs Temp Pulse Resp BP Pulse Ox 03/05/20 19:49 77 16 140/73 95 03/05/20 19:11 73 16 123/65 96 03/05/20 18:11 79 16 131/70 96 03/05/20 17:41 74 16 113/76 96 03/05/20 16:46 98.2 F 77 17 154/75 H 96 - Problem List (1) Diabetes mellitus SNOMED Code(s): 92252588 ICD Code: E11.9 - TYPE 2 DIABETES MELLITUS WITHOUT COMPLICATIONS Status: Chronic Priority: Medium Current Visit: No (2) Acute coronary syndrome SNOMED Code(s): 918342970 ICD Code: I24.9 - ACUTE ISCHEMIC HEART DISEASE, UNSPECIFIED Status: Acute Priority: High Current Visit: No Problem List Initiated/Reviewed/Updated: Yes Orders Last 24hrs: Active Orders 24 hr Category Date Time Status Patient Status [ADT] Routine ADT 03/05/20 18:49 Active Antiembolic Devices [RC] PER UNIT ROUTINE Care 03/05/20 19:30 Ordered Blood Glucose Check, Bedside [RC] TIDMEALS Care 03/05/20 19:28 Ordered Oxygen Therapy [RC] PRN Care 03/05/20 19:29 Ordered RT Aerosol Therapy [RC] ASDIRECTED Care 03/05/20 19:48 Ordered RT Post Treatment Assessment [RC] Click to Edit Care 03/05/20 19:48 Ordered RT Pre-Treatment Assessment [RC] Click to Edit Care 03/05/20 19:48 Ordered Telemetry Monitoring [Cardiac Monitoring] [RC] Q8H Care 03/05/20 19:18 Active Up ad Emily [RC] ASDIRECTED Care 03/05/20 19:28 Ordered VTE/DVT Education [RC] PER UNIT ROUTINE Care 03/05/20 19:29 Ordered Vital Signs [RC] Q4H Care 03/05/20 19:29 Ordered [employer] Diet [DIET] Diet 03/05/20 Dinner Ordered B-TYPE NATRIURETIC PEPTIDE,BNP [CHEM] Stat Lab 03/05/20 16:52 Received CBC WITH AUTO DIFF [HEME] AM Lab 03/06/20 05:11 Ordered COMPREHENSIVE METABOLIC PN,CMP [CHEM] AM Lab 03/06/20 05:11 Ordered GLYCOSYLATED HEMOGLOBIN,HGBA1C [CHEM] Stat Lab 03/05/20 19:37 Ordered MAGNESIUM [CHEM] AM Lab 03/06/20 05:11 Ordered PHOSPHORUS [CHEM] AM Lab 03/06/20 05:11 Ordered TROPONIN I [CHEM] Stat Lab 03/05/20 20:00 Ordered TROPONIN I [CHEM] Stat Lab 03/05/20 23:00 Ordered Albuterol [Proventil HFA] Med 03/05/20 19:43 Ordered 2 puff INH QID PRN Albuterol [Proventil Neb Soln] Med 03/05/20 19:43 Ordered 1 unit NEB Q6H PRN Apixaban [Eliquis] Med 03/05/20 21:00 Ordered 5 mg PO BID Aspirin Med 03/06/20 09:00 Ordered 81 mg PO DAILY Dextrose 50% in Water Med 03/05/20 19:40 Ordered 50 ml IV ASDIRECTED PRN Dextrose 50% in Water Med 03/05/20 19:41 Ordered 50 ml IV ASDIRECTED PRN Fenofibrate Nanocrystallized Med 03/06/20 09:00 Ordered 145 mg PO DAILY Gabapentin Med 03/05/20 22:00 Ordered 600 mg PO TID Glucagon,Human Recombinant [GlucaGen] Med 03/05/20 19:40 Ordered 1 mg IM ASDIRECTED PRN Glucagon,Human Recombinant [GlucaGen] Med 03/05/20 19:41 Ordered 1 mg IM ASDIRECTED PRN HYDROmorphone [Dilaudid] Med 03/05/20 19:28 Ordered 0.5 mg IVPUSH Q2H PRN Insulin Aspart [NovoLOG] Med 03/06/20 07:30 Ordered See Protocol SUBCUT TIDAC Insulin Detemir [Levemir] Med 03/05/20 21:00 Once 40 unit SUBCUT BEDTIME ONE Isosorbide Mononitrate [Imdur] Med 03/06/20 09:00 Ordered 50 mg PO DAILY Metoprolol Succinate [Toprol XL] Med 03/06/20 09:00 Ordered 50 mg PO DAILY Nitroglycerin [Nitrostat] Med 03/05/20 19:43 Ordered 0.4 mg SL Q5M PRN Ondansetron [Zofran ODT] Med 03/05/20 19:28 Ordered 4 mg PO Q4H PRN Pantoprazole [ProTONIX IV] Med 03/05/20 19:30 Ordered 40 mg IV Q24H Ranolazine [Ranexa] Med 03/05/20 19:45 Ordered 1,000 mg PO Q12H atorvaSTATin [Lipitor] Med 03/05/20 21:00 Ordered 20 mg PO BEDTIME dilTIAZem HCL [Dilt-Xr] Med 03/06/20 09:00 Ordered 180 mg PO DAILY lisinopriL [Prinivil] Med 03/06/20 09:00 Ordered 5 mg PO DAILY Sequential Compression Device [OM.PC] Per Unit Routine Oth 03/05/20 19:30 Ordered Resuscitation Status Routine Resus Stat 03/05/20 19:28 Ordered Medication Orders Albuterol (Proventil Neb Soln) mg NEB Q6H PRN PRN Reason: Wheezing Albuterol (Proventil Hfa) gm INH QID PRN PRN Reason: Shortness of Breath Apixaban (Eliquis) 5 mg PO BID TIFFANIE Aspirin (Aspirin) 81 mg PO DAILY TIFFANIE Atorvastatin Calcium (Lipitor) 20 mg PO BEDTIME TIFFANIE Dextrose/Water (Dextrose 50% In Water) 50 ml IV ASDIRECTED PRN PRN Reason: Hypoglycemia Dextrose/Water (Dextrose 50% In Water) 50 ml IV ASDIRECTED PRN PRN Reason: Hypoglycemia Glucagon (Glucagen) 1 mg IM ASDIRECTED PRN PRN Reason: Hypoglycemia Glucagon (Glucagen) 1 mg IM ASDIRECTED PRN PRN Reason: Hypoglycemia Hydromorphone HCl (Dilaudid) 0.5 mg IVPUSH Q2H PRN PRN Reason: Pain (severe 7-10) Insulin Aspart (Novolog) 0 unit SUBCUT TIDAC [facility]; Protocol Insulin Detemir (Levemir) 40 unit SUBCUT BEDTIME ONE Stop: 03/05/20 21:01 Isosorbide Mononitrate (Imdur) 50 mg PO DAILY [facility] Lisinopril (Prinivil) 5 mg PO DAILY [facility] Metoprolol Succinate (Toprol Xl) 50 mg PO DAILY [facility] Nitroglycerin (Nitrostat) 0.4 mg SL Q5M PRN PRN Reason: Chest Pain Non-Formulary Medication (Diltiazem Hcl [Dilt-Xr]) 180 mg PO DAILY [facility] Non-Formulary Medication (Fenofibrate Nanocrystallized) 145 mg PO DAILY [facility] Non-Formulary Medication (Gabapentin) 600 mg PO TID [facility] Ondansetron HCl (Zofran Odt) 4 mg PO Q4H PRN PRN Reason: nausea, able to take PO Pantoprazole Sodium (Protonix Iv) 40 mg IV Q24H [facility] Last Admin: 03/05/20 19:42 Dose: 40 mg Documented by: DAINA Ranolazine (Ranexa) 1,000 mg PO Q12H [facility] Assessment/Plan Comment:: Patient is a 44-year-old female admitted for observation for ACS rule out 1. ACS rule out: ASA 81 mg Gave 15 Toradol for pain 8 out of 10 Nitroglycerin as needed for chest pain Normal EKG Normal troponins continue to trend every 3 hours, total 3 times Continue to monitor via telemetry imagery BNP pending Zofran for nausea as needed Dilaudid 0.5 for pain every every 4 hours as needed, will avoid morphine due to patient allergy Cardiac diet/diabetic diet 2. Hyperglycemia with history of diabetes mellitus type 2: Check hemoglobin A1c Hold home insulin regimen, start on high-dose NovoLog sliding scale, give 40 units bedtime Levemir Check glucose 3 times daily AC Diabetic diet 3. Mildly elevated creatinine: 1.2, avoid nephrotoxic agents, trend with morning CMP 4. DVT prophylaxis: SCDs 5. GI prophylaxis: 40 pantoprazole daily 6. Past medical history of coronary artery disease, DE with stent placement, hypertension, hyperlipidemia, COPD and asthma: Resume home medications <David Camacho - Last Filed: 03/06/20 10:12> H&P History of Present Illness - General Admit Problem/Dx: Admission Diagnosis/Problem Admission Diagnosis/Problem Chest pain Exam - Vital Signs Vital Signs: Last Vital Signs Temp 35.6 C L 03/06/20 07:41 Pulse 95 03/06/20 09:12 Resp 18 03/06/20 07:41 BP 113/57 L 03/06/20 09:12 Pulse Ox 95 03/06/20 07:41 - Patient Data Lab Results Last 24 hrs: Laboratory Results - last 24 hr 03/05/20 03/05/20 03/05/20 Range/Units 16:52 16:52 16:55 WBC 7.09 (4.0-11.0) K/uL RBC 4.86 (4.30-5.90) M/uL Hgb 13.8 (12.0-16.0) g/dL Hct 42.8 (36.0-46.0) % MCV 88.1 (80.0-98.0) fL MCH 28.4 (27.0-32.0) pg MCHC 32.2 (31.0-37.0) g/dL RDW Std Deviation 47.2 (28.0-62.0) fl RDW Coeff of Demond 15 (11.0-15.0) % Plt Count 269 (150-400) K/uL MPV 11.00 (7.40-12.00) fL Neut % (Auto) 58.3 (48.0-80.0) % Lymph % (Auto) 34.8 (16.0-40.0) % [place] % (Auto) 6.3 (0.0-15.0) % Eos % (Auto) 0.3 (0.0-7.0) % Baso % (Auto) 0.3 (0.0-1.5) % Neut # (Auto) 4.1 (1.4-5.7) K/uL Lymph # (Auto) 2.5 H (0.6-2.4) K/uL [place] # (Auto) 0.5 (0.0-0.8) K/uL Eos # (Auto) 0.0 (0.0-0.7) K/uL Baso # (Auto) 0.0 (0.0-0.1) K/uL Nucleated RBC % 0.0 /100WBC Nucleated RBCs # 0 K/uL Sodium 137 (136-145) mmol/L Potassium 3.9 (3.5-5.1) mmol/L Chloride 101 (98-107) mmol/L Carbon Dioxide 25.3 (21.0-32.0) mmol/L BUN 11 (7.0-18.0) mg/dL Creatinine 1.2 H (0.6-1.0) mg/dL Est Cr Clr Drug Dosing TNP Estimated GFR (MDRD) 48.6 ml/min Glucose 229 H (74-106) mg/dL POC Glucose 226 H (60-110) mg/dL Hemoglobin A1c (4.5 - 6.2) % Calcium 9.0 (8.5-10.1) mg/dL Phosphorus (2.6-4.7) mg/dL Magnesium (1.8-2.4) mg/dL Total Bilirubin 0.4 (0.2-1.0) mg/dL AST 26 (15-37) IU/L ALT 38 (14-63) IU/L Alkaline Phosphatase 36 L (46-116) U/L Creatine Kinase 52 (26-308) U/L Troponin I < 0.050 (0.000-0.056) ng/mL Total Protein 7.4 (6.4-8.2) g/dL Albumin 3.6 (3.4-5.0) g/dL Globulin 3.8 (2.6-4.0) g/dL Albumin/Globulin Ratio 0.9 (0.9-1.6) Urine Color Urine Appearance Urine pH (5.0-8.0) Ur Specific [place] (1.001-1.035) Urine Protein (NEGATIVE) mg/dL Urine Glucose (UA) (NEGATIVE) mg/dL Urine Ketones (NEGATIVE) mg/dL Urine Occult Blood (NEGATIVE) Urine Nitrite (NEGATIVE) Urine Bilirubin (NEGATIVE) Urine Urobilinogen (<2.0) EU/dL Ur Leukocyte Esterase (NEGATIVE) SARS-CoV-2 RNA ([place]) (NEGATIVE) 12/24/20 12/24/20 12/24/20 Range/Units 18:19 20:07 20:07 WBC (4.0-11.0) K/uL RBC (4.30-5.90) M/uL Hgb (12.0-16.0) g/dL Hct (36.0-46.0) % MCV (80.0-98.0) fL MCH (27.0-32.0) pg MCHC (31.0-37.0) g/dL RDW Std Deviation (28.0-62.0) fl RDW Coeff of Demond (11.0-15.0) % Plt Count (150-400) K/uL MPV (7.40-12.00) fL Neut % (Auto) (48.0-80.0) % Lymph % (Auto) (16.0-40.0) % [place] % (Auto) (0.0-15.0) % Eos % (Auto) (0.0-7.0) % Baso % (Auto) (0.0-1.5) % Neut # (Auto) (1.4-5.7) K/uL Lymph # (Auto) (0.6-2.4) K/uL [place] # (Auto) (0.0-0.8) K/uL Eos # (Auto) (0.0-0.7) K/uL Baso # (Auto) (0.0-0.1) K/uL Nucleated RBC % /100WBC Nucleated RBCs # K/uL Sodium (136-145) mmol/L Potassium (3.5-5.1) mmol/L Chloride (98-107) mmol/L Carbon Dioxide (21.0-32.0) mmol/L BUN (7.0-18.0) mg/dL Creatinine (0.6-1.0) mg/dL Est Cr Clr Drug Dosing Estimated GFR (MDRD) ml/min Glucose (74-106) mg/dL POC Glucose (60-110) mg/dL Hemoglobin A1c 8.5 H (4.5 - 6.2) % Calcium (8.5-10.1) mg/dL Phosphorus (2.6-4.7) mg/dL Magnesium (1.8-2.4) mg/dL Total Bilirubin (0.2-1.0) mg/dL AST (15-37) IU/L ALT (14-63) IU/L Alkaline Phosphatase (46-116) U/L Creatine Kinase (26-308) U/L Troponin I < 0.050 (0.000-0.056) ng/mL Total Protein (6.4-8.2) g/dL Albumin (3.4-5.0) g/dL Globulin (2.6-4.0) g/dL Albumin/Globulin Ratio (0.9-1.6) Urine Color Urine Appearance Urine pH (5.0-8.0) Ur Specific [place] (1.001-1.035) Urine Protein (NEGATIVE) mg/dL Urine Glucose (UA) (NEGATIVE) mg/dL Urine Ketones (NEGATIVE) mg/dL Urine Occult Blood (NEGATIVE) Urine Nitrite (NEGATIVE) Urine Bilirubin (NEGATIVE) Urine Urobilinogen (<2.0) EU/dL Ur Leukocyte Esterase (NEGATIVE) SARS-CoV-2 RNA ([place]) NEGATIVE (NEGATIVE) 03/05/20 03/05/20 03/05/20 Range/Units 20:11 22:11 22:57 WBC (4.0-11.0) K/uL RBC (4.30-5.90) M/uL Hgb (12.0-16.0) g/dL Hct (36.0-46.0) % MCV (80.0-98.0) fL MCH (27.0-32.0) pg MCHC (31.0-37.0) g/dL RDW Std Deviation (28.0-62.0) fl RDW Coeff of Demond (11.0-15.0) % Plt Count (150-400) K/uL MPV (7.40-12.00) fL Neut % (Auto) (48.0-80.0) % Lymph % (Auto) (16.0-40.0) % [place] % (Auto) (0.0-15.0) % Eos % (Auto) (0.0-7.0) % Baso % (Auto) (0.0-1.5) % Neut # (Auto) (1.4-5.7) K/uL Lymph # (Auto) (0.6-2.4) K/uL [place] # (Auto) (0.0-0.8) K/uL Eos # (Auto) (0.0-0.7) K/uL Baso # (Auto) (0.0-0.1) K/uL Nucleated RBC % /100WBC Nucleated RBCs # K/uL Sodium (136-145) mmol/L Potassium (3.5-5.1) mmol/L Chloride (98-107) mmol/L Carbon Dioxide (21.0-32.0) mmol/L BUN (7.0-18.0) mg/dL Creatinine (0.6-1.0) mg/dL Est Cr Clr Drug Dosing Estimated GFR (MDRD) ml/min Glucose (74-106) mg/dL POC Glucose 193 H (60-110) mg/dL Hemoglobin A1c (4.5 - 6.2) % Calcium (8.5-10.1) mg/dL Phosphorus (2.6-4.7) mg/dL Magnesium (1.8-2.4) mg/dL Total Bilirubin (0.2-1.0) mg/dL AST (15-37) IU/L ALT (14-63) IU/L Alkaline Phosphatase (46-116) U/L Creatine Kinase (26-308) U/L Troponin I < 0.050 (0.000-0.056) ng/mL Total Protein (6.4-8.2) g/dL Albumin (3.4-5.0) g/dL Globulin (2.6-4.0) g/dL Albumin/Globulin Ratio (0.9-1.6) Urine Color YELLOW Urine Appearance CLEAR Urine pH 6.0 (5.0-8.0) Ur Specific [place] 1.025 (1.001-1.035) Urine Protein NEGATIVE (NEGATIVE) mg/dL Urine Glucose (UA) >=1000 (NEGATIVE) mg/dL Urine Ketones NEGATIVE (NEGATIVE) mg/dL Urine Occult Blood NEGATIVE (NEGATIVE) Urine Nitrite NEGATIVE (NEGATIVE) Urine Bilirubin NEGATIVE (NEGATIVE) Urine Urobilinogen 0.2 (<2.0) EU/dL Ur Leukocyte Esterase NEGATIVE (NEGATIVE) SARS-CoV-2 RNA ([facility]) (NEGATIVE) 03/06/20 03/06/20 03/06/20 Range/Units 06:28 06:28 06:37 WBC 5.71 (4.0-11.0) K/uL RBC 4.55 (4.30-5.90) M/uL Hgb 12.6 (12.0-16.0) g/dL Hct 40.0 (36.0-46.0) % MCV 87.9 (80.0-98.0) fL MCH 27.7 (27.0-32.0) pg MCHC 31.5 (31.0-37.0) g/dL RDW Std Deviation 47.4 (28.0-62.0) fl RDW Coeff of Demond 15 (11.0-15.0) % Plt Count 233 (150-400) K/uL MPV 11.10 (7.40-12.00) fL Neut % (Auto) 51.8 (48.0-80.0) % Lymph % (Auto) 39.8 (16.0-40.0) % [place] % (Auto) 7.5 (0.0-15.0) % Eos % (Auto) 0.5 (0.0-7.0) % Baso % (Auto) 0.4 (0.0-1.5) % Neut # (Auto) 3.0 (1.4-5.7) K/uL Lymph # (Auto) 2.3 (0.6-2.4) K/uL [place] # (Auto) 0.4 (0.0-0.8) K/uL Eos # (Auto) 0.0 (0.0-0.7) K/uL Baso # (Auto) 0.0 (0.0-0.1) K/uL Nucleated RBC % 0.0 /100WBC Nucleated RBCs # 0 K/uL Sodium 138 (136-145) mmol/L Potassium 3.7 (3.5-5.1) mmol/L Chloride 103 (98-107) mmol/L Carbon Dioxide 23.9 (21.0-32.0) mmol/L BUN 16 (7.0-18.0) mg/dL Creatinine 1.1 H (0.6-1.0) mg/dL Est Cr Clr Drug Dosing 55.77 Estimated GFR (MDRD) 53.7 ml/min Glucose 165 H (74-106) mg/dL POC Glucose 173 H (60-110) mg/dL Hemoglobin A1c (4.5 - 6.2) % Calcium 8.5 (8.5-10.1) mg/dL Phosphorus 4.4 (2.6-4.7) mg/dL Magnesium 1.8 (1.8-2.4) mg/dL Total Bilirubin 0.4 (0.2-1.0) mg/dL AST 16 (15-37) IU/L ALT 26 (14-63) IU/L Alkaline Phosphatase 28 L (46-116) U/L Creatine Kinase (26-308) U/L Troponin I (0.000-0.056) ng/mL Total Protein 6.2 L (6.4-8.2) g/dL Albumin 3.0 L (3.4-5.0) g/dL Globulin 3.2 (2.6-4.0) g/dL Albumin/Globulin Ratio 0.9 (0.9-1.6) Urine Color Urine Appearance Urine pH (5.0-8.0) Ur Specific [place] (1.001-1.035) Urine Protein (NEGATIVE) mg/dL Urine Glucose (UA) (NEGATIVE) mg/dL Urine Ketones (NEGATIVE) mg/dL Urine Occult Blood (NEGATIVE) Urine Nitrite (NEGATIVE) Urine Bilirubin (NEGATIVE) Urine Urobilinogen (<2.0) EU/dL Ur Leukocyte Esterase (NEGATIVE) SARS-CoV-2 RNA (WILFREDO) (NEGATIVE) Result Diagrams: 03/06/20 06:28 03/06/20 06:28 Sepsis Event Note - Focused Exam Vital Signs: Vital Signs Temp Pulse Pulse Resp BP BP Pulse Ox 03/06/20 09:12 95 113/57 L 03/06/20 07:41 35.6 C L 82 18 113/57 L 95 03/06/20 04:42 36.4 C 72 16 110/64 95 03/06/20 00:17 36.1 C 75 17 139/68 97 03/05/20 23:00 Pulse Ox 03/06/20 09:12 03/06/20 07:41 03/06/20 04:42 03/06/20 00:17 03/05/20 23:00 97 Orders Last 24hrs: Active Orders 24 hr Category Date Time Status Patient Status [ADT] Routine ADT 03/05/20 18:49 Active Antiembolic Devices [RC] PER UNIT ROUTINE Care 03/05/20 19:30 Active Blood Glucose Check, Bedside [RC] TIDMEALS Care 03/05/20 19:28 Active Oxygen Therapy [RC] PRN Care 03/05/20 19:29 Active RT Aerosol Therapy [RC] ASDIRECTED Care 03/05/20 19:48 Active RT Post Treatment Assessment [RC] Click to Edit Care 03/05/20 19:48 Active RT Pre-Treatment Assessment [RC] Click to Edit Care 03/05/20 19:48 Active Ready for Discharge [RC] PER UNIT ROUTINE Care 03/06/20 09:22 Active Telemetry Monitoring [Cardiac Monitoring] [RC] Q8H Care 03/05/20 19:18 Active Up ad Emily [RC] ASDIRECTED Care 03/05/20 19:28 Active VTE/DVT Education [RC] PER UNIT ROUTINE Care 03/05/20 19:29 Active Vital Signs [RC] Q4H Care 03/05/20 19:29 Active [employer] Diet [DIET] Diet 03/05/20 Dinner Active B-TYPE NATRIURETIC PEPTIDE,BNP [CHEM] Stat Lab 03/05/20 16:52 Received Albuterol [Proventil HFA] Med 03/05/20 19:43 Active 0 gm INH QID PRN Albuterol [Proventil Neb Soln] Med 03/05/20 19:43 Active 2.5 mg NEB Q6H PRN Apixaban [Eliquis] Med 03/05/20 21:00 Active 5 mg PO BID Aspirin Med 03/06/20 09:00 Active 81 mg PO DAILY Dextrose 50% in Water Med 03/05/20 19:40 Active 50 ml IV ASDIRECTED PRN Diltiazem [Cardizem CD] Med 03/05/20 23:00 Active 180 mg PO BEDTIME Fenofibrate Nanocrystallized Med 03/06/20 09:00 Active 145 mg PO DAILY Gabapentin [Neurontin] Med 03/05/20 22:54 Active 600 mg PO TID Glucagon,Human Recombinant [GlucaGen] Med 03/05/20 19:40 Active 1 mg IM ASDIRECTED PRN HYDROmorphone [Dilaudid] Med 03/05/20 19:28 Active 0.5 mg IVPUSH Q2H PRN Insulin Aspart [NovoLOG] Med 03/06/20 07:30 Active See Protocol SUBCUT TIDAC Insulin Detemir [Levemir] Med 03/06/20 21:00 Pending 100 unit SUBCUT BEDTIME Insulin Detemir [Levemir] Med 03/06/20 09:00 Active 75 unit SUBCUT DAILY Isosorbide Mononitrate [Imdur] Med 03/06/20 09:00 Active 50 mg PO DAILY Metoprolol Succinate [Toprol XL] Med 03/06/20 09:00 Active 50 mg PO DAILY Nitroglycerin [Nitrostat] Med 03/05/20 19:43 Active 0.4 mg SL Q5M PRN Omeprazole Med 03/06/20 07:30 Active 20 mg PO ACBREAKFAST Ondansetron [Zofran ODT] Med 03/05/20 19:28 Active 4 mg PO Q4H PRN Ondansetron [Zofran] Med 03/05/20 22:11 Active 4 mg PO Q6H PRN Oxymetazoline [Afrin Original 0.05% Nasal [place]] Med 03/05/20 22:11 Active 0 ml NASBOTH . NEEDED PRN Pantoprazole [ProTONIX IV] Med 03/05/20 19:30 Active 40 mg IV Q24H Ranolazine [Ranexa] Med 03/05/20 23:00 Active 1,000 mg PO BID atorvaSTATin [Lipitor] Med 03/05/20 21:00 Active 20 mg PO BEDTIME lisinopriL [Prinivil] Med 03/06/20 09:00 Active 5 mg PO DAILY Sequential Compression Device [OM.PC] Per Unit Routine Oth 03/05/20 19:30 Ordered Resuscitation Status Routine Resus Stat 03/05/20 19:28 Ordered Medication Orders Albuterol (Proventil Neb Soln) 2.5 mg NEB Q6H PRN PRN Reason: Wheezing Albuterol (Proventil Hfa) 0 gm INH QID PRN PRN Reason: Shortness of Breath Apixaban (Eliquis) 5 mg PO BID [facility] Last Admin: 03/06/20 09:11 Dose: 5 mg Documented by: [id number] Admin: 03/05/20 23:30 Dose: 5 mg Documented by: KELLY Aspirin (Aspirin) 81 mg PO DAILY [facility] Last Admin: 03/06/20 09:11 Dose: 81 mg Documented by: [id number] Atorvastatin Calcium (Lipitor) 20 mg PO BEDTIME [facility] Last Admin: 03/05/20 23:30 Dose: 20 mg Documented by: KELLY Dextrose/Water (Dextrose 50% In Water) 50 ml IV ASDIRECTED PRN PRN Reason: Hypoglycemia Diltiazem HCl (Cardizem Cd) 180 mg PO BEDTIME [facility] Last Admin: 03/05/20 23:31 Dose: 180 mg Documented by: KELLY Gabapentin (Neurontin) 600 mg PO TID [facility] Last Admin: 03/06/20 06:38 Dose: 600 mg Documented by: Admin: 03/05/20 23:31 Dose: 600 mg Documented by: KELLY Glucagon (Glucagen) 1 mg IM ASDIRECTED PRN PRN Reason: Hypoglycemia Hydromorphone HCl (Dilaudid) 0.5 mg IVPUSH Q2H PRN PRN Reason: Pain (severe 7-10) Insulin Aspart (Novolog) 0 unit SUBCUT TIDAC [facility]; Protocol Last Admin: 03/06/20 07:39 Dose: 3 units Documented by: ALISHA Insulin Detemir (Levemir) 75 unit SUBCUT DAILY [facility] Last Admin: 03/06/20 09:15 Dose: 75 units Documented by: ALISHA Insulin Detemir (Levemir) 100 unit SUBCUT BEDTIME [facility] Isosorbide Mononitrate (Imdur) 50 mg PO DAILY [facility] Last Admin: 03/06/20 09:13 Dose: Not Given Documented by: [id number] Lisinopril (Prinivil) 5 mg PO DAILY [facility] Last Admin: 03/06/20 09:12 Dose: 5 mg Documented by: ALISHA Metoprolol Succinate (Toprol Xl) 50 mg PO DAILY [facility] Last Admin: 03/06/20 09:12 Dose: 50 mg Documented by: [id number] Nitroglycerin (Nitrostat) 0.4 mg SL Q5M PRN PRN Reason: Chest Pain Non-Formulary Medication (Fenofibrate Nanocrystallized) 145 mg PO DAILY [facility] Last Admin: 03/06/20 09:13 Dose: Not Given Documented by: [id number] Omeprazole (Omeprazole) 20 mg PO ACBREAKFAST [facility] Last Admin: 03/06/20 06:38 Dose: 20 mg Documented by: KELLY Ondansetron HCl (Zofran Odt) 4 mg PO Q4H PRN PRN Reason: nausea, able to take PO Ondansetron HCl (Zofran) 4 mg PO Q6H PRN PRN Reason: Nausea Oxymetazoline HCl (Afrin Original 0.05% Nasal [place]) 0 ml NASBOTH . NEEDED PRN PRN Reason: Congestion Pantoprazole Sodium (Protonix Iv) 40 mg IV Q24H [facility] Last Admin: 03/05/20 19:42 Dose: 40 mg Documented by: DAINA Ranolazine (Ranexa) 1,000 mg PO BID [facility] Last Admin: 03/06/20 09:12 Dose: 1,000 mg Documented by: Admin: 03/05/20 23:32 Dose: 1,000 mg Documented by: KELLY Assessment/Plan Comment:: I performed a history and physical exam of the patient and discussed management with resident. I have reviewed the residents note and agree with documented fi ndings and plan unless otherwise specified in my note.
[2020-03-05 20:26] LABS: HEMOGLOBIN A1C 8.5 %
[2020-03-05] MEDS ORDERED: Insulin Detemir 100 Units/ML 3 ML Pen SUBCUT ONE ×2 (21:00→23:18)
[2020-03-05] MEDS ORDERED: atorvaSTATin 40 MG Tab PO SCH (21:00)
[2020-03-05] MEDS ORDERED: Non-Formulary Medication 1 Each (Gabapentin 600 MG) PO SCH (22:00)
[2020-03-05] MEDS ORDERED: Oxymetazoline 0.05% Nasal Spray 15 ML Bottle NASBOTH PRN (22:11)
[2020-03-05] MEDS ORDERED: Ondansetron 4 MG Tab PO PRN (22:11)
[2020-03-05] MEDS ORDERED: Diltiazem 180 MG Cap.CD PO SCH (23:00)
[2020-03-05] MEDS: Apixaban 5 MG Tab PO SCH (23:30)
[2020-03-05] MEDS: Gabapentin 300 MG Cap PO SCH (23:31)
[2020-03-06] MEDS: Gabapentin 300 MG Cap PO SCH (06:38)
[2020-03-06 07:19] LABS: CARBON DIOXIDE,CO2 23.9 mmol/L (21.0-32.0); POTASSIUM,K 3.7 mmol/L (3.5-5.1)
[2020-03-06] MEDS ORDERED: Omeprazole 20 MG Cap.CR PO SCH (07:30)
[2020-03-06] MEDS ORDERED: Insulin Aspart 100 Units/ML 3 ML Pen SUBCUT SCH (07:30)
[2020-03-06 07:42] VITALS: BP 113/57
[2020-03-06] MEDS ORDERED: Insulin Detemir 100 Units/ML 3 ML Pen SUBCUT SCH (09:00)
[2020-03-06] MEDS ORDERED: Metoprolol Succinate 25 MG Tab.ER PO SCH (09:00)
[2020-03-06] MEDS ORDERED: Lisinopril 5 MG Tab PO SCH (09:00)
[2020-03-06] MEDS ORDERED: Aspirin 81 MG Tab.Chew PO SCH (09:00)
[2020-03-06] MEDS ORDERED: Isosorbide Mononitrate 60 MG Tab.ER PO SCH (09:00)
[2020-03-06] MEDS ORDERED: FENOFIBRATE NANOCRYSTALLIZED 145 MG PO SCH (09:00)
[2020-03-06] MEDS: Apixaban 5 MG Tab PO SCH (09:11)
[2020-03-06 09:13] VITALS: PULSE 95
--- NOTE | 2020-03-06 09:22 | PCM.DCSUM1 ---
Discharge Summary - Hospital Course Brief History: Patient is a 44-year-old female with significant past medical history of coronary artery disease requiring a stent placement for an AK 4 years ago. Patient also has previous history of hypertension, hyperlipidemia, ex- smoker of 3 years, diabetes mellitus, obesity, COPD and asthma. Patient comes in today to the ED for right-sided chest pain described as being constant, squeezing, worse with activity and relieved by rest. Has had similar episodes in the past year but intermittent episodes resolved after Dr. Cardona in cardiology increased her medications. Patient states that she had tried taking 3 nitros, without her symptoms resolving. Patient describes pain as 8 out of 10, radiating to her right shoulder. Denies any weakness, shortness of breath, palpitations, syncope or presyncope. Furthermore denies any fever, cough, chills, sick contacts or recent travel. Diagnosis: Stroke: No - Discharge Data Discharge Date: 03/06/20 Discharge Disposition: Home, Self-Care 01 Condition: Good - Referral to Home Health Primary Care Physician: Con Lynch MD - Discharge Diagnosis/Problem(s) (1) Diabetes mellitus SNOMED Code(s): 65653973 ICD Code: E11.9 - TYPE 2 DIABETES MELLITUS WITHOUT COMPLICATIONS Status: Chronic Priority: Medium (2) Acute coronary syndrome SNOMED Code(s): 675842062 ICD Code: I24.9 - ACUTE ISCHEMIC HEART DISEASE, UNSPECIFIED Status: Acute Priority: High - Patient Summary/Data Hospital Course: Patient was admitted yesterday for observation for chest pain, ACS was ruled out with normal telemetry readings and negative troponins x3. This morning patient stated pain had resolved. Patient was discharged and will follow up closely with her PCP Dr. Lynch and is scheduled for a cardiology follow-up appointment in the next week with Dr. Cardona. - Patient Instructions Diet: Heart Healthy Diet, Diabetic Diet Activity: As Tolerated Driving: May Drive Today Showering/Bathing: May Shower Notify Provider of: Fever, Increased Pain, Swelling and Redness, Drainage, Nausea and/or Vomiting - Discharge Plan *PRESCRIPTION DRUG MONITORING PROGRAM REVIEWED*: Not Applicable *COPY OF PRESCRIPTION DRUG MONITORING REPORT IN PATIENT DOV: Not Applicable Home Medications: Home Meds Aspirin [Adeel Chewable Aspirin] 81 mg PO DAILY 07/26/14 [History] Apixaban [Eliquis] 5 mg PO BID 01/21/17 [History] Gabapentin [Neurontin] 600 mg PO TID 01/21/17 [History] Insulin Detemir [Levemir] 100 units SQ BEDTIME 01/21/17 [History] Albuterol Sulfate 1 unit NEB Q6H PRN 07/18/17 [History] Fenofibrate Nanocrystallized [Fenofibrate] 145 mg PO DAILY 07/18/17 [History] Lisinopril 5 mg PO DAILY 07/18/17 [History] Metoprolol Succinate 50 mg PO DAILY 07/18/17 [History] atorvaSTATin Calcium [Atorvastatin Calcium] 20 mg PO BEDTIME 07/18/17 [History] dilTIAZem HCL [Dilt-Xr] 180 mg PO BEDTIME 07/18/17 [History] traMADol [Ultram] 2 tab PO TID PRN 07/18/17 [History] Omeprazole 20 mg PO ACBREAKFAST 11/07/17 [History] Oxymetazoline [Afrin Original 0.05% Nasal [place]] 1 spray NASBOTH . NEEDED PRN 11/07/17 [History] Insulin Aspart [NovoLOG] 250 units SUBCUT TID 06/19/18 [History] Liraglutide [Victoza] 1.8 mg SUBCUT DAILY 06/19/18 [History] Sucralfate 1 gm PO QIDACANDBED 06/19/18 [History] Ondansetron [Zofran] 4 mg PO Q6H PRN 07/17/18 [History] Isosorbide Mononitrate [Isosorbide Mononitrate ER] 100 mg PO BEDTIME 03/25/19 [History] Nitroglycerin 0.4 mg SL Q5M PRN MDD 3 doses 03/25/19 [History] Ranolazine [Ranexa] 1,000 mg PO Q12H 03/25/19 [History] Albuterol Sulfate [Proair Hfa] 2 puff INH QID PRN #1 hfa.aer.ad 03/26/19 [Rx] cephALEXin [Keflex] 500 mg PO Q8H 7 Days #21 cap 10/12/19 [Rx] Insulin Detemir [Levemir] 75 units SQ DAILY 03/05/20 [History] Oxygen Therapy Mode: Room Air Patient Handouts: Nonspecific Chest Pain, Adult, [id number] Referrals: Deeprasertkul,[place], MD [Physician] - Con Lynch MD [Primary Care Provider] - - Discharge Summary/Plan Comment DC Time >30 min.: No Discharge Summary/Plan Comment: Admitted for ACS rule out, negative troponins and normal telemetry, pain has resolved. Patient will be discharged home to follow-up with PCP closely and Dr. Cardona in cardiology. - Patient Data Vitals - Most Recent: Last Vital Signs Temp 96.1 F L 03/06/20 07:41 Pulse 95 03/06/20 09:12 Resp 18 03/06/20 07:41 BP 113/57 L 03/06/20 09:12 Pulse Ox 95 03/06/20 07:41 Weight - Most Recent: 233 lb 12.8 oz I&O - Last 24 hours: Intake & Output 03/05/20 03/06/20 03/06/20 22:59 06:59 14:59 Intake Total 950 Output Total 800 Balance 150 Lab Results - Last 24 hrs: Laboratory Results - last 24 hr 03/05/20 03/05/20 03/05/20 Range/Units 16:52 16:52 16:55 WBC 7.09 (4.0-11.0) K/uL RBC 4.86 (4.30-5.90) M/uL Hgb 13.8 (12.0-16.0) g/dL Hct 42.8 (36.0-46.0) % MCV 88.1 (80.0-98.0) fL MCH 28.4 (27.0-32.0) pg MCHC 32.2 (31.0-37.0) g/dL RDW Std Deviation 47.2 (28.0-62.0) fl RDW Coeff of [place] 15 (11.0-15.0) % Plt Count 269 (150-400) K/uL MPV 11.00 (7.40-12.00) fL Neut % (Auto) 58.3 (48.0-80.0) % Lymph % (Auto) 34.8 (16.0-40.0) % [place] % (Auto) 6.3 (0.0-15.0) % Eos % (Auto) 0.3 (0.0-7.0) % Baso % (Auto) 0.3 (0.0-1.5) % Neut # (Auto) 4.1 (1.4-5.7) K/uL Lymph # (Auto) 2.5 H (0.6-2.4) K/uL [place] # (Auto) 0.5 (0.0-0.8) K/uL Eos # (Auto) 0.0 (0.0-0.7) K/uL Baso # (Auto) 0.0 (0.0-0.1) K/uL Nucleated RBC % 0.0 /100WBC Nucleated RBCs # 0 K/uL Sodium 137 (136-145) mmol/L Potassium 3.9 (3.5-5.1) mmol/L Chloride 101 (98-107) mmol/L Carbon Dioxide 25.3 (21.0-32.0) mmol/L BUN 11 (7.0-18.0) mg/dL Creatinine 1.2 H (0.6-1.0) mg/dL Est Cr Clr Drug Dosing TNP Estimated GFR (MDRD) 48.6 ml/min Glucose 229 H (74-106) mg/dL POC Glucose 226 H (60-110) mg/dL Hemoglobin A1c (4.5 - 6.2) % Calcium 9.0 (8.5-10.1) mg/dL Phosphorus (2.6-4.7) mg/dL Magnesium (1.8-2.4) mg/dL Total Bilirubin 0.4 (0.2-1.0) mg/dL AST 26 (15-37) IU/L ALT 38 (14-63) IU/L Alkaline Phosphatase 36 L (46-116) U/L Creatine Kinase 52 (26-308) U/L Troponin I < 0.050 (0.000-0.056) ng/mL Total Protein 7.4 (6.4-8.2) g/dL Albumin 3.6 (3.4-5.0) g/dL Globulin 3.8 (2.6-4.0) g/dL Albumin/Globulin Ratio 0.9 (0.9-1.6) Urine Color Urine Appearance Urine pH (5.0-8.0) Ur Specific [place] (1.001-1.035) Urine Protein (NEGATIVE) mg/dL Urine Glucose (UA) (NEGATIVE) mg/dL Urine Ketones (NEGATIVE) mg/dL Urine Occult Blood (NEGATIVE) Urine Nitrite (NEGATIVE) Urine Bilirubin (NEGATIVE) Urine Urobilinogen (<2.0) EU/dL Ur Leukocyte Esterase (NEGATIVE) SARS-CoV-2 RNA ([place]ILFREDO) (NEGATIVE) 03/05/20 03/05/20 03/05/20 Range/Units 18:19 20:07 20:07 WBC (4.0-11.0) K/uL RBC (4.30-5.90) M/uL Hgb (12.0-16.0) g/dL Hct (36.0-46.0) % MCV (80.0-98.0) fL MCH (27.0-32.0) pg MCHC (31.0-37.0) g/dL RDW Std Deviation (28.0-62.0) fl RDW Coeff of [place] (11.0-15.0) % Plt Count (150-400) K/uL MPV (7.40-12.00) fL Neut % (Auto) (48.0-80.0) % Lymph % (Auto) (16.0-40.0) % [place] % (Auto) (0.0-15.0) % Eos % (Auto) (0.0-7.0) % Baso % (Auto) (0.0-1.5) % Neut # (Auto) (1.4-5.7) K/uL Lymph # (Auto) (0.6-2.4) K/uL [place] # (Auto) (0.0-0.8) K/uL Eos # (Auto) (0.0-0.7) K/uL Baso # (Auto) (0.0-0.1) K/uL Nucleated RBC % /100WBC Nucleated RBCs # K/uL Sodium (136-145) mmol/L Potassium (3.5-5.1) mmol/L Chloride (98-107) mmol/L Carbon Dioxide (21.0-32.0) mmol/L BUN (7.0-18.0) mg/dL Creatinine (0.6-1.0) mg/dL Est Cr Clr Drug Dosing Estimated GFR (MDRD) ml/min Glucose (74-106) mg/dL POC Glucose (60-110) mg/dL Hemoglobin A1c 8.5 H (4.5 - 6.2) % Calcium (8.5-10.1) mg/dL Phosphorus (2.6-4.7) mg/dL Magnesium (1.8-2.4) mg/dL Total Bilirubin (0.2-1.0) mg/dL AST (15-37) IU/L ALT (14-63) IU/L Alkaline Phosphatase (46-116) U/L Creatine Kinase (26-308) U/L Troponin I < 0.050 (0.000-0.056) ng/mL Total Protein (6.4-8.2) g/dL Albumin (3.4-5.0) g/dL Globulin (2.6-4.0) g/dL Albumin/Globulin Ratio (0.9-1.6) Urine Color Urine Appearance Urine pH (5.0-8.0) Ur Specific [place] (1.001-1.035) Urine Protein (NEGATIVE) mg/dL Urine Glucose (UA) (NEGATIVE) mg/dL Urine Ketones (NEGATIVE) mg/dL Urine Occult Blood (NEGATIVE) Urine Nitrite (NEGATIVE) Urine Bilirubin (NEGATIVE) Urine Urobilinogen (<2.0) EU/dL Ur Leukocyte Esterase (NEGATIVE) SARS-CoV-2 RNA ([place]IL[place]EDO) NEGATIVE (NEGATIVE) 03/05/20 03/05/20 03/05/20 Range/Units 20:11 22:11 22:57 WBC (4.0-11.0) K/uL RBC (4.30-5.90) M/uL Hgb (12.0-16.0) g/dL Hct (36.0-46.0) % MCV (80.0-98.0) fL MCH (27.0-32.0) pg MCHC (31.0-37.0) g/dL RDW Std Deviation (28.0-62.0) fl RDW Coeff of [place] (11.0-15.0) % Plt Count (150-400) K/uL MPV (7.40-12.00) fL Neut % (Auto) (48.0-80.0) % Lymph % (Auto) (16.0-40.0) % [place] % (Auto) (0.0-15.0) % Eos % (Auto) (0.0-7.0) % Baso % (Auto) (0.0-1.5) % Neut # (Auto) (1.4-5.7) K/uL Lymph # (Auto) (0.6-2.4) K/uL [place] # (Auto) (0.0-0.8) K/uL Eos # (Auto) (0.0-0.7) K/uL Baso # (Auto) (0.0-0.1) K/uL Nucleated RBC % /100WBC Nucleated RBCs # K/uL Sodium (136-145) mmol/L Potassium (3.5-5.1) mmol/L Chloride (98-107) mmol/L Carbon Dioxide (21.0-32.0) mmol/L BUN (7.0-18.0) mg/dL Creatinine (0.6-1.0) mg/dL Est Cr Clr Drug Dosing Estimated GFR (MDRD) ml/min Glucose (74-106) mg/dL POC Glucose 193 H (60-110) mg/dL Hemoglobin A1c (4.5 - 6.2) % Calcium (8.5-10.1) mg/dL Phosphorus (2.6-4.7) mg/dL Magnesium (1.8-2.4) mg/dL Total Bilirubin (0.2-1.0) mg/dL AST (15-37) IU/L ALT (14-63) IU/L Alkaline Phosphatase (46-116) U/L Creatine Kinase (26-308) U/L Troponin I < 0.050 (0.000-0.056) ng/mL Total Protein (6.4-8.2) g/dL Albumin (3.4-5.0) g/dL Globulin (2.6-4.0) g/dL Albumin/Globulin Ratio (0.9-1.6) Urine Color YELLOW Urine Appearance CLEAR Urine pH 6.0 (5.0-8.0) Ur Specific [place] 1.025 (1.001-1.035) Urine Protein NEGATIVE (NEGATIVE) mg/dL Urine Glucose (UA) >=1000 (NEGATIVE) mg/dL Urine Ketones NEGATIVE (NEGATIVE) mg/dL Urine Occult Blood NEGATIVE (NEGATIVE) Urine Nitrite NEGATIVE (NEGATIVE) Urine Bilirubin NEGATIVE (NEGATIVE) Urine Urobilinogen 0.2 (<2.0) EU/dL Ur Leukocyte Esterase NEGATIVE (NEGATIVE) SARS-CoV-2 RNA ([place]ED[place]) (NEGATIVE) 03/06/20 03/06/20 03/06/20 Range/Units 06:28 06:28 06:37 WBC 5.71 (4.0-11.0) K/uL RBC 4.55 (4.30-5.90) M/uL Hgb 12.6 (12.0-16.0) g/dL Hct 40.0 (36.0-46.0) % MCV 87.9 (80.0-98.0) fL MCH 27.7 (27.0-32.0) pg MCHC 31.5 (31.0-37.0) g/dL RDW Std Deviation 47.4 (28.0-62.0) fl RDW Coeff of [place] 15 (11.0-15.0) % Plt Count 233 (150-400) K/uL MPV 11.10 (7.40-12.00) fL Neut % (Auto) 51.8 (48.0-80.0) % Lymph % (Auto) 39.8 (16.0-40.0) % [place] % (Auto) 7.5 (0.0-15.0) % Eos % (Auto) 0.5 (0.0-7.0) % Baso % (Auto) 0.4 (0.0-1.5) % Neut # (Auto) 3.0 (1.4-5.7) K/uL Lymph # (Auto) 2.3 (0.6-2.4) K/uL [place] # (Auto) 0.4 (0.0-0.8) K/uL Eos # (Auto) 0.0 (0.0-0.7) K/uL Baso # (Auto) 0.0 (0.0-0.1) K/uL Nucleated RBC % 0.0 /100WBC Nucleated RBCs # 0 K/uL Sodium 138 (136-145) mmol/L Potassium 3.7 (3.5-5.1) mmol/L Chloride 103 (98-107) mmol/L Carbon Dioxide 23.9 (21.0-32.0) mmol/L BUN 16 (7.0-18.0) mg/dL Creatinine 1.1 H (0.6-1.0) mg/dL Est Cr Clr Drug Dosing 55.77 Estimated GFR (MDRD) 53.7 ml/min Glucose 165 H (74-106) mg/dL POC Glucose 173 H (60-110) mg/dL Hemoglobin A1c (4.5 - 6.2) % Calcium 8.5 (8.5-10.1) mg/dL Phosphorus 4.4 (2.6-4.7) mg/dL Magnesium 1.8 (1.8-2.4) mg/dL Total Bilirubin 0.4 (0.2-1.0) mg/dL AST 16 (15-37) IU/L ALT 26 (14-63) IU/L Alkaline Phosphatase 28 L (46-116) U/L Creatine Kinase (26-308) U/L Troponin I (0.000-0.056) ng/mL Total Protein 6.2 L (6.4-8.2) g/dL Albumin 3.0 L (3.4-5.0) g/dL Globulin 3.2 (2.6-4.0) g/dL Albumin/Globulin Ratio 0.9 (0.9-1.6) Urine Color Urine Appearance Urine pH (5.0-8.0) Ur Specific [place] (1.001-1.035) Urine Protein (NEGATIVE) mg/dL Urine Glucose (UA) (NEGATIVE) mg/dL Urine Ketones (NEGATIVE) mg/dL Urine Occult Blood (NEGATIVE) Urine Nitrite (NEGATIVE) Urine Bilirubin (NEGATIVE) Urine Urobilinogen (<2.0) EU/dL Ur Leukocyte Esterase (NEGATIVE) SARS-CoV-2 RNA ([place]IL[place]EDO) (NEGATIVE) Med Orders - Current: Current Medications Albuterol (Proventil Neb Soln) 2.5 mg NEB Q6H PRN PRN Reason: Wheezing Albuterol (Proventil Hfa) 0 gm INH QID PRN PRN Reason: Shortness of Breath Apixaban (Eliquis) 5 mg PO BID [facility] Last Admin: 03/06/20 09:11 Dose: 5 mg Documented by: Aspirin (Aspirin) 81 mg PO DAILY [facility] Last Admin: 03/06/20 09:11 Dose: 81 mg Documented by: Atorvastatin Calcium (Lipitor) 20 mg PO BEDTIME [facility] Last Admin: 03/05/20 23:30 Dose: 20 mg Documented by: Dextrose/Water (Dextrose 50% In Water) 50 ml IV ASDIRECTED PRN PRN Reason: Hypoglycemia Diltiazem HCl (Cardizem Cd) 180 mg PO BEDTIME [facility] Last Admin: 03/05/20 23:31 Dose: 180 mg Documented by: Gabapentin (Neurontin) 600 mg PO TID [facility] Last Admin: 03/06/20 06:38 Dose: 600 mg Documented by: Glucagon (Glucagen) 1 mg IM ASDIRECTED PRN PRN Reason: Hypoglycemia Hydromorphone HCl (Dilaudid) 0.5 mg IVPUSH Q2H PRN PRN Reason: Pain (severe 7-10) Insulin Aspart (Novolog) 0 unit SUBCUT TIDAC [facility]; Protocol Last Admin: 03/06/20 07:39 Dose: 3 units Documented by: Insulin Detemir (Levemir) 75 unit SUBCUT DAILY [facility] Last Admin: 03/06/20 09:15 Dose: 75 units Documented by: Insulin Detemir (Levemir) 100 unit SUBCUT BEDTIME [facility] Isosorbide Mononitrate (Imdur) 50 mg PO DAILY [facility] Last Admin: 03/06/20 09:13 Dose: Not Given Documented by: Lisinopril (Prinivil) 5 mg PO DAILY [facility] Last Admin: 03/06/20 09:12 Dose: 5 mg Documented by: Metoprolol Succinate (Toprol Xl) 50 mg PO DAILY [facility] Last Admin: 03/06/20 09:12 Dose: 50 mg Documented by: Nitroglycerin (Nitrostat) 0.4 mg SL Q5M PRN PRN Reason: Chest Pain Non-Formulary Medication (Fenofibrate Nanocrystallized) 145 mg PO DAILY [facility] Last Admin: 03/06/20 09:13 Dose: Not Given Documented by: Omeprazole (Omeprazole) 20 mg PO ACBREAKFAST [facility] Last Admin: 03/06/20 06:38 Dose: 20 mg Documented by: Ondansetron HCl (Zofran Odt) 4 mg PO Q4H PRN PRN Reason: nausea, able to take PO Ondansetron HCl (Zofran) 4 mg PO Q6H PRN PRN Reason: Nausea Oxymetazoline HCl (Afrin Original 0.05% Nasal [place]) 0 ml NASBOTH . NEEDED PRN PRN Reason: Congestion Pantoprazole Sodium (Protonix Iv) 40 mg IV Q24H [facility] Last Admin: 03/05/20 19:42 Dose: 40 mg Documented by: Ranolazine (Ranexa) 1,000 mg PO BID [facility] Last Admin: 03/06/20 09:12 Dose: 1,000 mg Documented by: Discontinued Medications Dextrose/Water (Dextrose 50% In Water) 50 ml IV ASDIRECTED PRN PRN Reason: Hypoglycemia Glucagon (Glucagen) 1 mg IM ASDIRECTED PRN PRN Reason: Hypoglycemia Hydromorphone HCl (Dilaudid) 1 mg IVPUSH ONETIME ONE Stop: 03/05/20 17:00 Last Admin: 03/05/20 17:09 Dose: 1 mg Documented by: Insulin Detemir (Levemir) 40 unit SUBCUT BEDTIME ONE Stop: 03/05/20 21:01 Last Admin: 03/06/20 03:36 Dose: Not Given Documented by: Insulin Detemir (Levemir) 100 unit SUBCUT BEDTIME [facility] Last Admin: 03/06/20 03:38 Dose: Not Given Documented by: Insulin Detemir (Levemir) 50 unit SUBCUT ONETIME ONE Stop: 03/05/20 23:19 Last Admin: 03/05/20 23:38 Dose: 50 units Documented by: Ketorolac Tromethamine (Toradol) 15 mg IVPUSH Q6H ONE Stop: 03/05/20 19:28 Last Admin: 03/05/20 19:38 Dose: 15 mg Documented by: Non-Formulary Medication (Gabapentin) 600 mg PO TID [facility] Last Admin: 03/06/20 03:37 Dose: Not Given Documented by: Ondansetron HCl (Zofran) Confirm Administered Dose 4 mg .ROUTE .STK-MED ONE Stop: 03/05/20 17:13 Last Admin: 03/05/20 17:18 Dose: Not Given Documented by: Ondansetron HCl (Zofran) 4 mg IVPUSH ONETIME ONE Stop: 03/05/20 17:18 Last Admin: 03/05/20 17:18 Dose: 4 mg Documented by: Ranolazine (Ranexa) 1,000 mg PO Q12H [facility] Last Admin: 03/06/20 03:36 Dose: Not Given Documented by:
== END 2020-03-06 10:40 | disposition home or self-care (01) ==
LOC: MW.ED 16:46 → MW.MS 18:49
PROVIDERS: ADMIT Student in an Organized Health Care Education/Training Program; ATTEND Student in an Organized Health Care Education/Training Program
DX: I24.9 Acute ischemic heart disease, unspecified (principal); I25.10 Atherosclerotic heart disease of native coronary artery without angina pectoris; I10 Essential (primary) hypertension; E78.5 Hyperlipidemia, unspecified; E11.9 Type 2 diabetes mellitus without complications; E66.9 Obesity, unspecified; J44.9 Chronic obstructive pulmonary disease, unspecified; E05.90 Thyrotoxicosis, unspecified without thyrotoxic crisis or storm; E11.65 Type 2 diabetes mellitus with hyperglycemia; Z20.828 Contact with and (suspected) exposure to other viral communicable diseases; Z88.5 Allergy status to narcotic agent; Z95.5 Presence of coronary angioplasty implant and graft; Z87.891 Personal history of nicotine dependence; Z88.8 Allergy status to other drugs, medicaments and biological substances; Z88.1 Allergy status to other antibiotic agents; Z79.82 Long term (current) use of aspirin; Z79.899 Other long term (current) drug therapy; Z86.73 Personal history of transient ischemic attack (TIA), and cerebral infarction without residual deficits
CPT/HCPCS: 36415; 71046; 71046-26; 80053; 81003; 82550; 82962; 83036; 83735; 84100; 84484; 85025; 93005; 96374; 96375; 99285-25; A9270-GY; C9113; J1170; J1815-GY; J1885; J2405; U0002

== ENCOUNTER 2020-06-14 12:52 | Emergency (ER) | payer MEDICARE, MEDICAID ==
--- NOTE | 2020-06-14 12:55 | EDM.PDOC ---
ED HPI GENERAL MEDICAL PROBLEM - General Stated Complaint: LT FOOT PAIN Time Seen by Provider: 06/14/20 12:52 Source of Information: Reports: Patient History Limitations: Reports: No Limitations - History of Present Illness INITIAL COMMENTS - FREE TEXT/NARRATIVE: 45-year-old female past medical history COPD, diabetes, hypertension, CAD, sciatica, gastroparesis, asthma, peripheral vascular disease presents for left foot pain. Patient notes that she hit her foot on a wheelchair last night while transferring. She did not notice a lot of pain at the time but woke up with swelling and redness to the dorsum of the left foot. She does have a history of blood clots and notes that she has an appointment on Monday for a leg ultrasound to rule out blood clots. She gets these as routine screening. Denies any fevers or other symptoms. left foot Pain Score (Numeric/FACES): 7 - Related Data Allergies Allergy/AdvReac Type Severity Reaction Status Date / Time doxycycline Allergy Hives Verified 06/14/20 13:11 morphine Allergy Itching Verified 06/14/20 13:11 prednisone Allergy Nausea Verified 06/14/20 13:11 Home Meds: Home Meds Aspirin [Adeel Chewable Aspirin] 81 mg PO DAILY 07/26/14 [History] Apixaban [Eliquis] 5 mg PO BID 01/21/17 [History] Gabapentin [Neurontin] 600 mg PO TID 01/21/17 [History] Insulin Detemir [Levemir] 100 units SQ BEDTIME 01/21/17 [History] Albuterol Sulfate 1 unit NEB Q6H PRN 07/18/17 [History] Fenofibrate Nanocrystallized [Fenofibrate] 145 mg PO DAILY 07/18/17 [History] Lisinopril 5 mg PO DAILY 07/18/17 [History] Metoprolol Succinate 50 mg PO DAILY 07/18/17 [History] atorvaSTATin Calcium [Atorvastatin Calcium] 20 mg PO BEDTIME 07/18/17 [History] traMADol [Ultram] 2 tab PO TID PRN 07/18/17 [History] Omeprazole 20 mg PO ACBREAKFAST 11/07/17 [History] Oxymetazoline [Afrin Original 0.05% Nasal [place]] 1 spray NASBOTH . NEEDED PRN 11/07/17 [History] Insulin Aspart [NovoLOG] 250 units SUBCUT TID 06/19/18 [History] Liraglutide [Victoza] 1.8 mg SUBCUT DAILY 06/19/18 [History] Sucralfate 1 gm PO QIDACANDBED 06/19/18 [History] Ondansetron [Zofran] 4 mg PO Q6H PRN 07/17/18 [History] Isosorbide Mononitrate [Isosorbide Mononitrate ER] 100 mg PO BEDTIME 03/25/19 [History] Nitroglycerin 0.4 mg SL Q5M PRN MDD 3 doses 03/25/19 [History] Ranolazine [Ranexa] 1,000 mg PO Q12H 03/25/19 [History] Albuterol Sulfate [Proair Hfa] 2 puff INH QID PRN #1 hfa.aer.ad 03/26/19 [Rx] cephALEXin [Keflex] 500 mg PO Q8H 7 Days #21 cap 10/12/19 [Rx] Insulin Detemir [Levemir] 75 units SQ DAILY 03/05/20 [History] cephALEXin [Keflex] 500 mg PO Q8H 10 Days #30 cap 06/14/20 [Rx] Past Medical History HEENT History: Reports: Glaucoma, Impaired Vision, Other (See Below) Other HEENT History: needs glasses but doesnt wear them Cardiovascular History: Reports: Angina, High Cholesterol, Hypertension, [place], Stents, Other (See Below) Other Cardiovascular History: hx of [place] with cardiac stenting. hx of blood clots Respiratory History: Reports: Asthma, Bronchitis, Recurrent, COPD, Pneumonia, Recurrent Other Respiratory History: COPD with Nebulizer treatments and inhaler - better since she stoped smoking 01/28, Hx of bronchitis annd pneumonia Gastrointestinal History: Reports: GERD, Hiatal Hernia Genitourinary History: Reports: None SAW FILER History: Reports: Musculoskeletal History: Reports: Arthritis Other Musculoskeletal History: rt leg below the knee amputation Neurological History: Reports: Headaches, Chronic, Neuropathy, Diabetic, Other (See Below) Other Neuro History: hx: Headaches Psychiatric History: Reports: None Endocrine/Metabolic History: Reports: Diabetes, Type II, Obesity/BMI 30+ Hematologic History: Reports: Anemia, Blood Transfusion(s) Other Hematologic History: hx blood clots Immunologic History: Reports: None Oncologic (Cancer) History: Reports: None Dermatologic History: Reports: None - Infectious Disease History Infectious Disease History: Reports: None - Past Surgical History Head Surgeries/Procedures: Reports: None HEENT Surgical History: Reports: Myringotomy w Tube(s) Other HEENT Surgeries/Procedures: tube placement Cardiovascular Surgical History: Reports: Coronary Artery Stent Other Cardiovascular Surgeries/Procedures: 2014 Respiratory Surgical History: Reports: None GI Surgical History: Reports: Cholecystectomy, Colonoscopy, EGD Female Surgical History: Reports: Hysterectomy Endocrine Surgical History: Reports: None Neurological Surgical History: Reports: None Musculoskeletal Surgical History: Reports: Amputation, Carpal Tunnel Other Musculoskeletal Surgeries/Procedures:: R below the knee amputation Oncologic Surgical History: Reports: None Dermatological Surgical History: Reports: None Social & Family History - Family History Family Medical History: No Pertinent Family History HEENT: Reports: Cataract, Impaired Vision, Otitis Media, Sinusitis Cardiac: Reports: High Cholesterol, Hypertension, [place] Other Cardiac Family History: heart problems maternal and paternal sides Respiratory: Reports: Asthma, COPD, Sleep Apnea GI: Reports: None Musculoskeletal: Reports: Arthritis, Gout Neurological: Reports: CVA Psychiatric: Reports: None Endocrine/Metabolic: Reports: Diabetes, Type I, Diabetes, type II, Hyperthyroidism, Obesity/MBI 30+ Hematologic: Reports: Anemia Oncologic: Reports: Lung - Caffeine Use Caffeine Use: Reports: None Caffeine Use Comment: "sometimes" ED ROS GENERAL - Review of Systems Review Of Systems: Comprehensive ROS is negative, except as noted in HPI. ED EXAM, GENERAL - Physical Exam Exam: See Below Exam Limited By: No Limitations General Appearance: Alert, WD/WN, No Apparent Distress Throat/Mouth: Normal Voice, No Airway Compromise Head: Atraumatic, Normocephalic Neck: Normal Inspection Respiratory/Chest: No Respiratory Distress, No Accessory Muscle Use Cardiovascular: Normal Peripheral Pulses Extremities: Other (erythema, mild swelling, and warmth of dorsum L foot; no calf TTP) Psychiatric: Normal Affect, Normal Mood Skin Exam: Warm, Dry, Intact, Normal Color Course - Vital Signs Last Recorded V/S: Last Vital Signs Temp 96.9 F 06/14/20 13:12 Pulse 86 06/14/20 13:12 Resp 20 06/14/20 13:12 BP 137/71 06/14/20 13:12 Pulse Ox 97 06/14/20 13:12 - Orders/Labs/Meds Orders: Active Orders 24 hr Category Date Time Status cephALEXin [Keflex] Med 06/14/20 14:03 Once 500 mg PO ONETIME ONE - Re-Assessments/Exams Free Text/Narrative Re-Assessment/Exam: 06/14/20 13:32 Differential includes fracture, cellulitis, DVT. Will defer DVT work-up as we do not have ultrasound readily available and patient is being seen in [place] on Monday for a lower extremity ultrasound. She's already on Eliquis. Will get x-ray imaging to exclude fracture. 06/14/20 14:05 No fracture on x-ray imaging. Will treat for cellulitis and recommend follow-up on Monday at patient's regularly scheduled appointment. Departure - Departure Time of Disposition: 14: Disposition: Home, Self-Care 01 Condition: Good Clinical Impression: Cellulitis Qualifiers: Site of cellulitis: extremity Site of cellulitis of extremity: lower extremity Laterality: left Qualified Code(s): L03.116 - Cellulitis of left lower limb - Discharge Information Prescriptions: cephALEXin [Keflex] 500 mg PO Q8H 10 Days #30 cap Instructions: Cellulitis, Adult Referrals: Con Lynch MD [Primary Care Provider] - Additional Instructions: The following information is given to patients seen in the emergency department who are being discharged to home. This information is to outline your options for follow-up care. We provide all patients seen in our emergency department with a follow-up referral. The need for follow-up, as well as the timing and circumstances, are variable depending upon the specifics of your emergency department visit. If you don't have a primary care physician on staff, we will provide you with a referral. We always advise you to contact your personal physician following an emergency department visit to inform them of the circumstance of the visit and for follow-up with them and/or the need for any referrals to a consulting specialist. The emergency department will also refer you to a specialist when appropriate. This referral assures that you have the opportunity for follow-up care with a specialist. All of these measure are taken in an effort to provide you with optimal care, which includes your follow-up. Under all circumstances we always encourage you to contact your private physician who remains a resource for coordinating your care. When calling for follow-up care, please make the office aware that this follow-up is from your recent emergency room visit. If for any reason you are refused follow-up, please contact the [facility] Emergency Department at and asked to speak to the emergency department charge nurse. Please follow up with your primary care physician. If you do not have a primary care physician, see below: [facility] [address], [place] [id number] [facility] [address] [place] [address] [facility] [address] [place] [address] Sepsis Event Note (ED) - Focused Exam Vital Signs: Vital Signs Temp Pulse Resp BP Pulse Ox 06/14/20 13:12 96.9 F 86 20 137/71 97 - My Orders Last 24 Hours: My Active Orders 06/14/20 14:03 cephALEXin [Keflex] 500 mg PO ONETIME ONE - Assessment/Plan Last 24 Hours: My Active Orders 06/14/20 14:03 cephALEXin [Keflex] 500 mg PO ONETIME ONE
[2020-06-14 13:14] VITALS: PULSE 86
--- NOTE | 2020-06-14 13:58 | CR ---
INDICATION: Left foot pain. No injury. TECHNIQUE: Three views of the left foot. COMPARISON: None. FINDINGS: No fracture or periosteal reaction. Large plantar calcaneal spur and tiny posterior calcaneal spur. IMPRESSION: Unremarkable except for calcaneal spurs. Dictated by Konrad Carpoi MD @ Jun 14 2020 1:54PM Signed by Dr. Konrad Carpio @ Jun 14 2020 1:57PM
[2020-06-14] MEDS ORDERED: Cephalexin 500 MG Cap PO ONE ×2 (14:03→14:06)
[2020-06-14 16:09] VITALS: BP 114/63
== END 2020-06-14 14:20 | disposition home or self-care (01) ==
LOC: MW.ED 12:52
DX: L03.116 Cellulitis of left lower limb (principal); I10 Essential (primary) hypertension; I25.2 Old myocardial infarction; J44.9 Chronic obstructive pulmonary disease, unspecified; K21.9 Gastro-esophageal reflux disease without esophagitis; M19.90 Unspecified osteoarthritis, unspecified site; E11.40 Type 2 diabetes mellitus with diabetic neuropathy, unspecified; E66.9 Obesity, unspecified; E78.00 Pure hypercholesterolemia, unspecified; Z88.1 Allergy status to other antibiotic agents; Z88.5 Allergy status to narcotic agent; Z88.8 Allergy status to other drugs, medicaments and biological substances; Z79.82 Long term (current) use of aspirin; Z79.01 Long term (current) use of anticoagulants; Z79.4 Long term (current) use of insulin; Z79.899 Other long term (current) drug therapy; Z95.5 Presence of coronary angioplasty implant and graft
CPT/HCPCS: 73630; 99283; A9270; 99282

== ENCOUNTER 2020-07-24 15:52 | Emergency (ER) | payer MEDICARE, MEDICAID ==
[2020-07-24] MEDS ORDERED: Ketorolac 15 MG/ML SDV IVPUSH ONE (16:36)
[2020-07-24] MEDS ORDERED: Lactated Ringers 1,000 ML IV SCH (16:45)
[2020-07-24 18:03] LABS: CARBON DIOXIDE,CO2 27.2 mmol/L (21.0-32.0); POTASSIUM,K 3.6 mmol/L (3.5-5.1)
--- NOTE | 2020-07-24 19:38 | EDM.PDOC ---
<Alvin العراقي - Last Filed: 07/24/20 19:37> ED HPI GENERAL MEDICAL PROBLEM - General Chief Complaint: ENT Problem Stated Complaint: EAR INFECTION Time Seen by Provider: 07/24/20 16:12 - History of Present Illness INITIAL COMMENTS - FREE TEXT/NARRATIVE: CHIEF COMPLAINT(S): Right ear pain HISTORY OF PRESENT ILLNESS: This is a 45-year-old and with a past medical history of diabetes mellitus, hypertension, COPD and recurrent otitis media and a history of mastoiditis who comes to the emergency department with a chief complaint of right ear pain. The patient states that for the last 3 days she patel s been experiencing right ear pain. She states that she went to the clinic yesterday and got prescribed antibiotics for a ear infection. She states that however the pain had a creased and that she started to experience numbness on the right side of her face. She denies any blurry vision, loss of vision, trouble walking, speaking, swallowing. She denies any sore throat or trouble breathing. She denies any drooling or trismus. She states that the pain is rated 10 out of 10 on the right side of her face. She describes it as sharp and achy. There are no relieving factors. Pain is exacerbated by touching the right side of her face. She denies any chest pain, shortness of breath, abdominal pain, nausea or vomiting. She denies any other symptoms. REVIEW OF SYSTEMS: Constitutional: Denies fever, chills. Eyes: Denies eye pain Ears, Nose, Mouth, & Throat: Positive for right-sided ear pain. Denies trismus, drooling, sore throat, trouble breathing Cardiovascular: Denies chest pain Respiratory: Denies shortness of breath Gastrointestinal: Denies Nausea, vomiting, diarrhea, hematochezia. Genitourinary: Denies hematuria Skin:Denies a rash MSK: Denies joint pain Neurological: Positive for numbness to the right side of the face. Denies blurred vision, diplopia, trouble walking, trouble speaking, trouble swallowing Psychiatric: Denies depression PAST MEDICAL HISTORY: As per history of present illness and as reviewed below otherwise noncontributory. SURGICAL HISTORY: As per history of present illness and as reviewed below otherwise noncontributory. SOCIAL HISTORY: As per history of present illness and as reviewed below otherwise noncontributory. FAMILY HISTORY: As per history of present illness and as reviewed below otherwise noncontributory. EXAMINATION OF ORGAN SYSTEMS/BODY AREAS: Constitutional: Blood pressure was 142/66, heart rate 68, respiratory 16 with an oxygen saturation 99% on room air. Temperature 36.6 General: Overall well-appearing woman who is in no acute distress Psychiatric: Appropriate mood and affect. Eyes: No scleral icterus or conjunctival erythema pupils were equal round and reactive to light. Extraocular movements intact. No vertical or horizontal nystagmus. No proptosis. ENMT: Moist mucous membranes. No pharyngeal erythema no tonsillar exudates or swelling. No trismus. No drooling. Right tympanic membrane is mildly eryth ematous and bulging with an effusion. Left tympanic membrane is normal. There is posterior auricular tenderness. No swelling postauricularly. Cardiovascular: Regular, rate, and rhythm. No gallops, murmurs, or rubs. Bilateral upper extremity pulses symmetric and intact. No peripheral edema. No JVD. Respiratory: Lungs clear to auscultation bilaterally. No wheezes, rales, or rhonchi. Gastrointestinal: Soft, non-tender, non-distended. Normoactive bowel sounds Genitourinary: No suprapubic tenderness Musculoskeletal: Normal range of motion. Skin: No lesions or abrasions. Neurological: Alert, GCS 15 strength and sensation grossly intact in upper and lower extremities bilaterally. Facies are symmetrical. There is no decreased sensation along the face. Tongue protrudes midline. Uvula was midline. MEDICAL DECISION MAKING AND COURSE IN THE ED WITH INTERPRETATION/REVIEW OF DIAGNOSTIC STUDIES: This is a 45-year-old woman with a past medical history of diabetes mellitus, hypertension, COPD and prior history of mastoiditis with recurrent otitis media who comes to the emergency department with worsening right ear pain with a sensation of decreased sensation on her right face with postauricular tenderness. At this time the patient is afebrile and not tachycardic however we will provide the patient with Toradol for pain relief and 1 L of lactated Ringer's bolus. Will obtain labs including CBC, ESR, CRP, BMP, hCG. Will obtain a Covid swab. Will obtain a CT of her orbit and sella to evaluate for mastoiditis. Laboratory: CBC is unremarkable. BMP is unremarkable except for hyperglycemia at 170, hypocalcemia at 8.1. CRP is 0.5, ESR is 16. hCG is negative. The patient continued to remain vitally stable. At the time of signout the patient was pending CT. The patient was signed out pending this result. DISPOSITION: Patient was signed out to oncoming ED physician pending CT result and final disposition CONDITION: Fair PROCEDURES: None FINAL IMPRESSION(S)/DIAGNOSES: 1. Acute right otitis media 2. Acute posterior auricular tenderness possible mastoiditis Alvin العراقي M.D. - Related Data Allergies Allergy/AdvReac Type Severity Reaction Status Date / Time doxycycline Allergy Hives Verified 07/24/20 16:33 morphine Allergy Itching Verified 07/24/20 16:33 prednisone Allergy Nausea Verified 07/24/20 16:33 Home Meds: Home Meds Aspirin [Adeel Chewable Aspirin] 81 mg PO DAILY 07/26/14 [History] Apixaban [Eliquis] 5 mg PO BID 01/21/17 [History] Gabapentin [Neurontin] 600 mg PO TID 01/21/17 [History] Insulin Detemir [Levemir] 100 units SQ BEDTIME 01/21/17 [History] Albuterol Sulfate 1 unit NEB Q6H PRN 07/18/17 [History] Fenofibrate Nanocrystallized [Fenofibrate] 145 mg PO DAILY 07/18/17 [History] Lisinopril 5 mg PO DAILY 07/18/17 [History] Metoprolol Succinate 50 mg PO DAILY 07/18/17 [History] atorvaSTATin Calcium [Atorvastatin Calcium] 20 mg PO BEDTIME 07/18/17 [History] traMADol [Ultram] 2 tab PO TID PRN 07/18/17 [History] Omeprazole 20 mg PO ACBREAKFAST 11/07/17 [History] Oxymetazoline [Afrin Original 0.05% Nasal [place]] 1 spray NASBOTH . NEEDED PRN 11/07/17 [History] Insulin Aspart [NovoLOG] 250 units SUBCUT TID 06/19/18 [History] Liraglutide [Victoza] 1.8 mg SUBCUT DAILY 06/19/18 [History] Sucralfate 1 gm PO QIDACANDBED 06/19/18 [History] Ondansetron [Zofran] 4 mg PO Q6H PRN 07/17/18 [History] Isosorbide Mononitrate [Isosorbide Mononitrate ER] 100 mg PO BEDTIME 03/25/19 [History] Nitroglycerin 0.4 mg SL Q5M PRN MDD 3 doses 03/25/19 [History] Ranolazine [Ranexa] 1,000 mg PO Q12H 03/25/19 [History] Albuterol Sulfate [Proair Hfa] 2 puff INH QID PRN #1 hfa.aer.ad 03/26/19 [Rx] cephALEXin [Keflex] 500 mg PO Q8H 7 Days #21 cap 10/12/19 [Rx] Insulin Detemir [Levemir] 75 units SQ DAILY 03/05/20 [History] cephALEXin [Keflex] 500 mg PO Q8H 10 Days #30 cap 06/14/20 [Rx] Ibuprofen 600 mg PO Q6HR PRN #30 tablet 07/24/20 [Rx] Past Medical History HEENT History: Reports: Glaucoma, Impaired Vision, Other (See Below) Other HEENT History: needs glasses but doesnt wear them Cardiovascular History: Reports: Angina, High Cholesterol, Hypertension, VT, Stents, Other (See Below) Other Cardiovascular History: hx of VT with cardiac stenting. hx of blood clots Respiratory History: Reports: Asthma, Bronchitis, Recurrent, COPD, Pneumonia, Recurrent Other Respiratory History: COPD with Nebulizer treatments and inhaler - better since she stoped smoking 01/28, Hx of bronchitis annd pneumonia Gastrointestinal History: Reports: GERD, Hiatal Hernia Genitourinary History: Reports: None [employer] History: Reports: Musculoskeletal History: Reports: Arthritis Other Musculoskeletal History: rt leg below the knee amputation Neurological History: Reports: Headaches, Chronic, Neuropathy, Diabetic, Other (See Below) Other Neuro History: hx: Headaches Psychiatric History: Reports: None Endocrine/Metabolic History: Reports: Diabetes, Type II, Obesity/BMI 30+ Hematologic History: Reports: Anemia, Blood Transfusion(s) Other Hematologic History: hx blood clots Immunologic History: Reports: None Oncologic (Cancer) History: Reports: None Dermatologic History: Reports: None - Infectious Disease History Infectious Disease History: Reports: None - Past Surgical History Head Surgeries/Procedures: Reports: None HEENT Surgical History: Reports: Myringotomy w Tube(s) Other HEENT Surgeries/Procedures: tube placement Cardiovascular Surgical History: Reports: Coronary Artery Stent Other Cardiovascular Surgeries/Procedures: 2014 Respiratory Surgical History: Reports: None GI Surgical History: Reports: Cholecystectomy, Colonoscopy, EGD Female Surgical History: Reports: Hysterectomy Endocrine Surgical History: Reports: None Neurological Surgical History: Reports: None Musculoskeletal Surgical History: Reports: Amputation, Carpal Tunnel Other Musculoskeletal Surgeries/Procedures:: R below the knee amputation Oncologic Surgical History: Reports: None Dermatological Surgical History: Reports: None Social & Family History - Family History Family Medical History: No Pertinent Family History HEENT: Reports: Cataract, Impaired Vision, Otitis Media, Sinusitis Cardiac: Reports: High Cholesterol, Hypertension, VT Other Cardiac Family History: heart problems maternal and paternal sides Respiratory: Reports: Asthma, COPD, Sleep Apnea GI: Reports: None Musculoskeletal: Reports: Arthritis, Gout Neurological: Reports: CVA Psychiatric: Reports: None Endocrine/Metabolic: Reports: Diabetes, Type I, Diabetes, type II, Hyperthyroidi sm, Obesity/MBI 30+ Hematologic: Reports: Anemia Oncologic: Reports: Lung - Caffeine Use Caffeine Use: Reports: Soda Caffeine Use Comment: "sometimes" - Recreational Drug Use Recreational Drug Use: No ED ROS GENERAL - Review of Systems Review Of Systems: See Below ED EXAM, GENERAL - Physical Exam Exam: See Below Departure - Departure Disposition: Home, Self-Care 01 Clinical Impression: Otitis externa Otitis media Qualifiers: Otitis media type: unspecified Chronicity: acute Qualified Code(s): H66.90 - Otitis media, unspecified, unspecified ear - Discharge Information Instructions: Otitis Media, Adult, [id number], Otitis Externa Referrals: Con Lynch MD [Primary Care Provider] - Forms: ED Department Discharge Additional Instructions: You were seen and evaluated in the ER today secondary to pain and swelling to your right ear. The CT scan does not reveal any evidence of mastoiditis. Continue the Augmentin and the eardrops that have been prescribed to you yesterday. You can take ibuprofen to assist you with pain and discomfort. Please make an appointment to see your family doctor on Monday for reevaluation. Please return the ER if you start developing worsening pain, headaches, fevers to be reevaluated. The following information is given to patients seen in the emergency department who are being discharged to home. This information is to outline your options for follow-up care. We provide all patients seen in our emergency department with a follow-up referral. The need for follow-up, as well as the timing and circumstances, are variable depending upon the specifics of your emergency department visit. If you don't have a primary care physician on staff, we will provide you with a referral. We always advise you to contact your personal physician following an emergency department visit to inform them of the circumstance of the visit and for follow-up with them and/or the need for any referrals to a consulting specialist. The emergency department will also refer you to a specialist when appropriate. This referral assures that you have the opportunity for follow-up care with a specialist. All of these measure are taken in an effort to provide you with optimal care, which includes your follow-up. Under all circumstances we always encourage you to contact your private physician who remains a resource for coordinating your care. When calling for f ollow-up care, please make the office aware that this follow-up is from your recent emergency room visit. If for any reason you are refused follow-up, please contact the [facility] Emergency Department at and asked to speak to the emergency department charge nurse. [facility] - Primary Care [address] [place] [address] [address] Sepsis Event Note (ED) - Evaluation Sepsis Screening Result: No Definite Risk <Blaine Zhong - Last Filed: 07/24/20 21:29> ED HPI GENERAL MEDICAL PROBLEM - History of Present Illness INITIAL COMMENTS - FREE TEXT/NARRATIVE: 9:25 PM: Received at [address] Ba. Patient with a recent diagnosis of otitis media/otitis externa and is currently on Augmentin and Cortisporin otic drops. Patient does have a history of mastoiditis in the past requiring transfer to [facility]. Patient has a CT scan ordered to assess for recurrence of her mastoiditis. Patient CT scan reveals normal mastoid air cells without evidence of inflammation or fluid/abscess. Patient reports that she feels much better while here in the ED which is likely secondary to pain medicines that she did receive. Patient does have swollen lymph nodes in the preauricular region as well as near parotid gland. This is likely the cause of the discomfort that she has been feeling. At this time, I agree with the plan as outlined by Dr. Ba and do not feel that the patient will require adm ission to the hospital. Patient will need to continue her Augmentin and eardrops as she is only been on day #1 of it. I discussed results with the patient and she is currently in agreement with the plan. Reassessment at the time of disposition demonstrates that the patient is in no acute distress. The patient has remained stable throughout the entire ED visit and is without objective evidence for acute process requiring urgent intervention or hospitalization. The patient is stable for discharge, counseling is provided as documented above, discussed symptomatic treatment and specific conditions for return. I have spoken with the patient/caregiver and discussed todays findings, in addition to providing specific details for the plan of care. Questions are answered and there is agreement with the plan. Course - Vital Signs Last Recorded V/S: Last Vital Signs Temp 98 F 07/24/20 16:31 Pulse 62 07/24/20 20:31 Resp 16 07/24/20 20:31 BP 116/62 07/24/20 20:31 Pulse Ox 97 07/24/20 20:31 - Orders/Labs/Meds Orders: Active Orders 24 hr Category Date Time Status Lactated Ringers [Ringers, Lactated] 1,000 ml Med 07/24/20 16:45 Active IV ASDIRECTED Medication Orders Lactated Ringer's (Ringers, Lactated) 1,000 mls @ 999 mls/hr IV ASDIRECTED TIFFANIE Last Admin: 07/24/20 17:17 Dose: 999 mls/hr Documented by: ULYSSES Labs: Laboratory Tests 07/24/20 07/24/20 07/24/20 Range/Units 17:15 17:15 17:15 WBC 7.23 (4.0-11.0) K/uL RBC 5.13 (4.30-5.90) M/uL Hgb 14.0 (12.0-16.0) g/dL Hct 44.2 (36.0-46.0) % MCV 86.2 (80.0-98.0) fL MCH 27.3 (27.0-32.0) pg MCHC 31.7 (31.0-37.0) g/dL RDW Std Deviation 51.5 (28.0-62.0) fl RDW Coeff of Demond 16 H (11.0-15.0) % Plt Count 310 (150-400) K/uL MPV 11.30 (7.40-12.00) fL Neut % (Auto) 54.5 (48.0-80.0) % Lymph % (Auto) 36.5 (16.0-40.0) % [place] % (Auto) 7.7 (0.0-15.0) % Eos % (Auto) 1.0 (0.0-7.0) % Baso % (Auto) 0.3 (0.0-1.5) % Neut # (Auto) 3.9 (1.4-5.7) K/uL Lymph # (Auto) 2.6 H (0.6-2.4) K/uL [place] # (Auto) 0.6 (0.0-0.8) K/uL Eos # (Auto) 0.1 (0.0-0.7) K/uL Baso # (Auto) 0.0 (0.0-0.1) K/uL Nucleated RBC % 0.0 /100WBC Nucleated RBCs # 0 K/uL ESR 16 (0-19) mm/hr Sodium 140 (136-145) mmol/L Potassium 3.6 (3.5-5.1) mmol/L Chloride 104 (98-107) mmol/L Carbon Dioxide 27.2 (21.0-32.0) mmol/L BUN 13 (7.0-18.0) mg/dL Creatinine 1.0 (0.6-1.0) mg/dL Est Cr Clr Drug Dosing 60.70 mL/min Estimated GFR (MDRD) 59.7 ml/min Glucose 170 H (74-106) mg/dL Calcium 8.1 L (8.5-10.1) mg/dL C-Reactive Protein 0.50 (0.00-0.90) mg/dL HCG, Qual (NEG) // Range/Units 17:15 WBC (4.0-11.0) K/uL RBC (4.30-5.90) M/uL Hgb (12.0-16.0) g/dL Hct (36.0-46.0) % MCV (80.0-98.0) fL MCH (27.0-32.0) pg MCHC (31.0-37.0) g/dL RDW Std Deviation (28.0-62.0) fl RDW Coeff of Demond (11.0-15.0) % Plt Count (150-400) K/uL MPV (7.40-12.00) fL Neut % (Auto) (48.0-80.0) % Lymph % (Auto) (16.0-40.0) % [place] % (Auto) (0.0-15.0) % Eos % (Auto) (0.0-7.0) % Baso % (Auto) (0.0-1.5) % Neut # (Auto) (1.4-5.7) K/uL Lymph # (Auto) (0.6-2.4) K/uL [place] # (Auto) (0.0-0.8) K/uL Eos # (Auto) (0.0-0.7) K/uL Baso # (Auto) (0.0-0.1) K/uL Nucleated RBC % /100WBC Nucleated RBCs # K/uL ESR (0-19) mm/hr Sodium (136-145) mmol/L Potassium (3.5-5.1) mmol/L Chloride (98-107) mmol/L Carbon Dioxide (21.0-32.0) mmol/L BUN (7.0-18.0) mg/dL Creatinine (0.6-1.0) mg/dL Est Cr Clr Drug Dosing mL/min Estimated GFR (MDRD) ml/min Glucose (74-106) mg/dL Calcium (8.5-10.1) mg/dL C-Reactive Protein (0.00-0.90) mg/dL HCG, Qual NEGATIVE (NEG) Meds: Medications Generic Name Dose Route Start Last Admin Trade Name Freq PRN Reason Stop Dose Admin Lactated Ringer's 1,000 mls @ 999 mls/hr 07/24/20 16:45 07/24/20 17:17 Ringers, Lactated IV 999 mls/hr ASDIRECTED TIFFANIE Administration Discontinued Medications Generic Name Dose Route Start Last Admin Trade Name Robyn PRN Reason Stop Dose Admin Iopamidol 75 ml 07/24/20 20:15 07/24/20 20:16 Iopamidol 755 Mg/Ml 500 Ml Multipack Bottle IVPUSH 07/24/20 20:16 75 ml ONETIME STA Administration Ketorolac Tromethamine 15 mg 07/24/20 16:36 07/24/20 17:17 Ketorolac 15 Mg/Ml Sdv IVPUSH 07/24/20 16:37 15 mg ONETIME ONE Administration Departure - Departure Time of Disposition: 21:27 Condition: Good Sepsis Event Note (ED) - Focused Exam Vital Signs: Vital Signs Temp Pulse Resp BP Pulse Ox 07/24/20 20:31 62 16 116/62 97 07/24/20 19:31 69 16 106/70 96 07/24/20 17:57 65 16 104/53 L 99 07/24/20 16:31 98 F 68 16 142/66 H 99
[2020-07-24] MEDS ORDERED: Iopamidol 755 MG/ML 500 ML Multipack Bottle IVPUSH STA (20:15)
--- NOTE | 2020-07-24 21:12 | CT ---
INDICATION: Evaluate right-sided mastoiditis. TECHNIQUE: CT images were acquired through the temporal bones following administration of intravenous contrast. COMPARISON: CT temporal bones 05/29/2019. FINDINGS: Right side: Moderate opacification of the medial osseous external auditory canal. Mild tympanic membrane thickening. The middle ear cavity is clear. The ossicles and scutum are intact. No evidence for otosclerosis. The inner ear structures, including the cochlea, vestibule, and semicircular canals demonstrate normal morphology. Trace opacification of inferior mastoid air cells. Left Side: The external auditory canal is widely patent. The tympanic membrane is faintly visualized. The ossicles and scutum are intact. The middle ear cavity is clear. No evidence for otosclerosis. The inner ear structures, including the cochlea, vestibule, and semicircular canals demonstrate normal morphology. The mastoid air cells are clear. Other: Minimal mucosal thickening in the maxillary sinuses. IMPRESSION: Right side: 1. Moderate opacification of the medial osseous external auditory canal. Mild tympanic membrane thickening. The middle ear cavity is clear. 2. Trace mastoid effusion. Left Side: 1. No CT abnormality. Please note that all CT scans at this facility use dose modulation, iterative reconstruction, and/or weight-based dosing when appropriate to reduce radiation dose to as low as reasonably achievable. Dictated by Devyn Ho MD @ 07/25/2020 8:51:[address] Devyn Ho @ Jul 25 2020 8:51AM
[2020-07-24 21:45] VITALS: BP 131/72; PULSE 74
== END 2020-07-24 21:35 | disposition home or self-care (01) ==
LOC: MW.ED 15:52
DX: H66.91 Otitis media, unspecified, right ear (principal); H60.91 Unspecified otitis externa, right ear; E78.00 Pure hypercholesterolemia, unspecified; I10 Essential (primary) hypertension; I25.2 Old myocardial infarction; J44.9 Chronic obstructive pulmonary disease, unspecified; K21.9 Gastro-esophageal reflux disease without esophagitis; M19.90 Unspecified osteoarthritis, unspecified site; E11.40 Type 2 diabetes mellitus with diabetic neuropathy, unspecified; E66.9 Obesity, unspecified; Z68.38 Body mass index [BMI] 38.0-38.9, adult; Z88.1 Allergy status to other antibiotic agents; Z88.5 Allergy status to narcotic agent; Z88.8 Allergy status to other drugs, medicaments and biological substances; Z79.82 Long term (current) use of aspirin; Z79.01 Long term (current) use of anticoagulants; Z79.4 Long term (current) use of insulin; Z79.899 Other long term (current) drug therapy; Z95.5 Presence of coronary angioplasty implant and graft
CPT/HCPCS: 36415; 70481; 80048; 84703; 85025; 85652; 86140; 96374; 99283; J1885; J7120; Q9967

== ENCOUNTER 2020-11-30 01:51 | Observation (INO) | payer MEDICARE ==
[2020-11-30] MEDS ORDERED: Nitroglycerin 0.4 MG Tab.SL SL ONE (02:10)
--- NOTE | 2020-11-30 02:12 | EDM.PDOC ---
ED HPI GENERAL MEDICAL PROBLEM - General Chief Complaint: Chest Pain Stated Complaint: chest pains Time Seen by Provider: 11/30/20 02:00 Source of Information: Reports: Patient - History of Present Illness INITIAL COMMENTS - FREE TEXT/NARRATIVE: Patient presents is complaining of of chest discomfort. She states it started today in the morning and has been progressively worse. She describes it as hear tburn and pressure rating from the epigastrium up to her chest. No exacerbating relieving factors. Some mild cough but no productive sputum or fevers. Some mild shortness of breath worse with ambulation. Patient denies any pleuritic component or sharp chest pain. Patient took 1 baby aspirin and nitro. Patient states that she has a history of hypertension diabetes and MT and coronary artery disease. 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 Chest Pain Score (Numeric/FACES): 5 - Related Data Allergies Allergy/AdvReac Type Severity Reaction Status Date / Time doxycycline Allergy Hives Verified 11/30/20 02:01 morphine Allergy Itching Verified 11/30/20 02:01 prednisone Allergy Nausea Verified 11/30/20 02:01 Home Meds: Home Meds Aspirin [Adeel Chewable Aspirin] 81 mg PO DAILY 07/26/14 [History] Apixaban [Eliquis] 5 mg PO BID 01/21/17 [History] Gabapentin [Neurontin] 600 mg PO TID 01/21/17 [History] Insulin Detemir [Levemir] 100 units SQ BEDTIME 01/21/17 [History] Albuterol Sulfate 1 unit NEB Q6H PRN 07/18/17 [History] Fenofibrate Nanocrystallized [Fenofibrate] 145 mg PO DAILY 07/18/17 [History] Lisinopril 5 mg PO DAILY 07/18/17 [History] Metoprolol Succinate 50 mg PO DAILY 07/18/17 [History] atorvaSTATin Calcium [Atorvastatin Calcium] 20 mg PO BEDTIME 07/18/17 [History] traMADol [Ultram] 2 tab PO TID PRN 07/18/17 [History] Omeprazole 20 mg PO ACBREAKFAST 11/07/17 [History] Oxymetazoline [Afrin Original 0.05% Nasal [place]] 1 spray NASBOTH . NEEDED PRN 11/07/17 [History] Insulin Aspart [NovoLOG] 250 units SUBCUT TID 06/19/18 [History] Liraglutide [Victoza] 1.8 mg SUBCUT DAILY 06/19/18 [History] Sucralfate 1 gm PO QIDACANDBED 06/19/18 [History] Ondansetron [Zofran] 4 mg PO Q6H PRN 07/17/18 [History] Isosorbide Mononitrate [Isosorbide Mononitrate ER] 100 mg PO BEDTIME 03/25/19 [History] Nitroglycerin 0.4 mg SL Q5M PRN MDD 3 doses 03/25/19 [History] Ranolazine [Ranexa] 1,000 mg PO Q12H 03/25/19 [History] Albuterol Sulfate [Proair Hfa] 2 puff INH QID PRN #1 hfa.aer.ad 03/26/19 [Rx] cephALEXin [Keflex] 500 mg PO Q8H 7 Days #21 cap 10/12/19 [Rx] Insulin Detemir [Levemir] 75 units SQ DAILY 03/05/20 [History] cephALEXin [Keflex] 500 mg PO Q8H 10 Days #30 cap 06/14/20 [Rx] Ibuprofen 600 mg PO Q6HR PRN #30 tablet 07/24/20 [Rx] Past Medical History HEENT History: Reports: Glaucoma, Impaired Vision, Other (See Below) Other HEENT History: needs glasses but doesnt wear them Cardiovascular History: Reports: Angina, High Cholesterol, Hypertension, MT, Stents, Other (See Below) Other Cardiovascular History: hx of MT with cardiac stenting. hx of blood clots Respiratory History: Reports: Asthma, Bronchitis, Recurrent, COPD, Pneumonia, Recurrent Other Respiratory History: COPD with Nebulizer treatments and inhaler - better since she stoped smoking 01/28, Hx of bronchitis annd pneumonia Gastrointestinal History: Reports: GERD, Hiatal Hernia Genitourinary History: Reports: None PSYCH COORDINATOR History: Reports: Musculoskeletal History: Reports: Arthritis Other Musculoskeletal History: rt leg below the knee amputation Neurological History: Reports: Headaches, Chronic, Neuropathy, Diabetic, Other (See Below) Other Neuro History: hx: Headaches Psychiatric History: Reports: None Endocrine/Metabolic History: Reports: Diabetes, Type II, Obesity/BMI 30+ Hematologic History: Reports: Anemia, Blood Transfusion(s) Other Hematologic History: hx blood clots Immunologic History: Reports: None Oncologic (Cancer) History: Reports: None Dermatologic History: Reports: None - Infectious Disease History Infectious Disease History: Reports: None - Past Surgical History Head Surgeries/Procedures: Reports: None HEENT Surgical History: Reports: Myringotomy w Tube(s) Other HEENT Surgeries/Procedures: tube placement Cardiovascular Surgical History: Reports: Coronary Artery Stent Other Cardiovascular Surgeries/Procedures: 2014 Respiratory Surgical History: Reports: None GI Surgical History: Reports: Cholecystectomy, Colonoscopy, EGD Female Surgical History: Reports: Hysterectomy Endocrine Surgical History: Reports: None Neurological Surgical History: Reports: None Musculoskeletal Surgical History: Reports: Amputation, Carpal Tunnel Other Musculoskeletal Surgeries/Procedures:: R below the knee amputation Oncologic Surgical History: Reports: None Dermatological Surgical History: Reports: None Social & Family History - Family History Family Medical History: No Pertinent Family History HEENT: Reports: Cataract, Impaired Vision, Otitis Media, Sinusitis Cardiac: Reports: High Cholesterol, Hypertension, MT Other Cardiac Family History: heart problems maternal and paternal sides Respiratory: Reports: Asthma, COPD, Sleep Apnea GI: Reports: None Musculoskeletal: Reports: Arthritis, Gout Neurological: Reports: CVA Psychiatric: Reports: None Endocrine/Metabolic: Reports: Diabetes, Type I, Diabetes, type II, Hyperthyroidism, Obesity/MBI 30+ Hematologic: Reports: Anemia Oncologic: Reports: Lung - Caffeine Use Caffeine Use: Reports: Soda Caffeine Use Comment: "sometimes" ED ROS GENERAL - Review of Systems Review Of Systems: Comprehensive ROS is negative, except as noted in HPI. ED EXAM, GENERAL - Physical Exam Exam: See Below Free Text/Narrative:: CONSTITUTIONAL: well appearing in no acute distress SKIN: Warm, dry, and intact without rash HENT: Normocephalic, atraumatic, PULMONARY: clear to ausculation bilaterally. No rales, rhonchi, wheezing CARDIOVASCULAR: regular rate, No murmur, rubs, or gallops GASTROINTESTINAL: soft, nondistended, nontender NEUROLOGIC: normal speech, II-XII intact. light touch/5/5 power equal and symmetric in upper and lower extremities without deficit MUSCULOSKELETAL: no gross deformities, atraumatic PSYCHIATRIC: normal mood and affect #1 Interpretation EKG Interpretation Comments: EKG: NSR, nonspecific ST/T changes, Rate -86 Course - Vital Signs Text/Narrative:: Differential diagnosis: ACS, GERD, pancreatitis, esophageal spasm, PE, pneumonia, pneumothorax, Covid, other Patient presents as outlined above. Patient does have significant cardiac risk factors. EKG is nonspecific with troponin negative. Patient be admitted for telemetry monitoring and serial cardiac enzymes. Patient did have an elevated lipase at 600. She does not have her gallbladder and and states that she does not drink. CT scan is read as unremarkable pancreas. This was done because patient was having some epigastric burning radiating up to the chest but there is no marked objective epigastric tenderness in this entire context seems less likely consistent with an acute pancreatitis. Nonetheless patient admitted for telemetry and serial cardiac enzymes to ensure there is no concern for ACS or other pathology at this time Last Recorded V/S: Last Vital Signs Temp 36.4 C 11/30/20 01:57 Pulse 86 11/30/20 04:00 Resp 20 11/30/20 04:00 BP 106/67 11/30/20 04:00 Pulse Ox 95 11/30/20 04:00 - Orders/Labs/Meds Orders: Active Orders 24 hr Category Date Time Status Admission Status [Patient Status] [ADT] Stat ADT 11/30/20 04:54 Ordered Cardiac Monitoring [RC] . DIRECTED Care 11/30/20 04:54 Ordered Aspirin Med 11/30/20 02:15 Active 162 mg PO DAILY Medication Orders Aspirin (Aspirin 81 Mg Tab.Chew) 162 mg PO DAILY TIFFANIE Last Admin: 11/30/20 02:17 Dose: 162 mg Documented by: TONIA Labs: Laboratory Tests 11/30/20 11/30/20 11/30/20 Range/Units 01:55 01:55 01:55 WBC 7.03 (4.0-11.0) K/uL RBC 4.88 (4.30-5.90) M/uL Hgb 13.4 (12.0-16.0) g/dL Hct 41.2 (36.0-46.0) % MCV 84.4 (80.0-98.0) fL MCH 27.5 (27.0-32.0) pg MCHC 32.5 (31.0-37.0) g/dL RDW Std Deviation 47.8 (28.0-62.0) fl RDW Coeff of Demond 16 H (11.0-15.0) % Plt Count 290 (150-400) K/uL MPV 11.10 (7.40-12.00) fL Neut % (Auto) 45.3 L (48.0-80.0) % Lymph % (Auto) 44.0 H (16.0-40.0) % [place] % (Auto) 9.4 (0.0-15.0) % Eos % (Auto) 1.0 (0.0-7.0) % Baso % (Auto) 0.3 (0.0-1.5) % Neut # (Auto) 3.2 (1.4-5.7) K/uL Lymph # (Auto) 3.1 H (0.6-2.4) K/uL [place] # (Auto) 0.7 (0.0-0.8) K/uL Eos # (Auto) 0.1 (0.0-0.7) K/uL Baso # (Auto) 0.0 (0.0-0.1) K/uL Nucleated RBC % 0.0 /100WBC Nucleated RBCs # 0 K/uL INR 1.00 Sodium 140 (136-145) mmol/L Potassium 3.8 (3.5-5.1) mmol/L Chloride 104 (98-107) mmol/L Carbon Dioxide 27.3 (21.0-32.0) mmol/L BUN 16 (7.0-18.0) mg/dL Creatinine 1.2 H (0.6-1.0) mg/dL Est Cr Clr Drug Dosing 48.46 mL/min Estimated GFR (MDRD) 48.4 ml/min Glucose 173 H (74-106) mg/dL Calcium 8.7 (8.5-10.1) mg/dL Total Bilirubin 0.3 (0.2-1.0) mg/dL AST 16 (15-37) IU/L ALT 26 (14-63) IU/L Alkaline Phosphatase 44 L (46-116) U/L Troponin I < 0.050 (0.000-0.056) ng/mL Total Protein 6.9 (6.4-8.2) g/dL Albumin 3.3 L (3.4-5.0) g/dL Globulin 3.6 (2.6-4.0) g/dL Albumin/Globulin Ratio 0.9 (0.9-1.6) Lipase 600 H (73-393) U/L SARS-CoV-2 RNA (WILFREDO) (NEGATIVE) 11/30/20 11/30/20 Range/Units 02:19 04:09 WBC (4.0-11.0) K/uL RBC (4.30-5.90) M/uL Hgb (12.0-16.0) g/dL Hct (36.0-46.0) % MCV (80.0-98.0) fL MCH (27.0-32.0) pg MCHC (31.0-37.0) g/dL RDW Std Deviation (28.0-62.0) fl RDW Coeff of Demond (11.0-15.0) % Plt Count (150-400) K/uL MPV (7.40-12.00) fL Neut % (Auto) (48.0-80.0) % Lymph % (Auto) (16.0-40.0) % [place] % (Auto) (0.0-15.0) % Eos % (Auto) (0.0-7.0) % Baso % (Auto) (0.0-1.5) % Neut # (Auto) (1.4-5.7) K/uL Lymph # (Auto) (0.6-2.4) K/uL [place] # (Auto) (0.0-0.8) K/uL Eos # (Auto) (0.0-0.7) K/uL Baso # (Auto) (0.0-0.1) K/uL Nucleated RBC % /100WBC Nucleated RBCs # K/uL INR Sodium (136-145) mmol/L Potassium (3.5-5.1) mmol/L Chloride (98-107) mmol/L Carbon Dioxide (21.0-32.0) mmol/L BUN (7.0-18.0) mg/dL Creatinine (0.6-1.0) mg/dL Est Cr Clr Drug Dosing mL/min Estimated GFR (MDRD) ml/min Glucose (74-106) mg/dL Calcium (8.5-10.1) mg/dL Total Bilirubin (0.2-1.0) mg/dL AST (15-37) IU/L ALT (14-63) IU/L Alkaline Phosphatase (46-116) U/L Troponin I < 0.050 (0.000-0.056) ng/mL Total Protein (6.4-8.2) g/dL Albumin (3.4-5.0) g/dL Globulin (2.6-4.0) g/dL Albumin/Globulin Ratio (0.9-1.6) Lipase (73-393) U/L SARS-CoV-2 RNA ([facility]ILFREDO) NEGATIVE (NEGATIVE) Meds: Medications Generic Name Dose Route Start Last Admin Trade Name Freq PRN Reason Stop Dose Admin Aspirin 162 mg 11/30/20 02:15 11/30/20 02:17 Aspirin 81 Mg Tab.Chew PO 162 mg DAILY TIFFANIE Administration Discontinued Medications Generic Name Dose Route Start Last Admin Trade Name Freq PRN Reason Stop Dose Admin Iopamidol 100 ml 11/30/20 03:35 11/30/20 03:36 Iopamidol 755 Mg/Ml 500 Ml Multipack Bottle IVPUSH 11/30/20 03:36 100 ml ONETIME STA Administration Nitroglycerin 0.4 mg 11/30/20 02:10 11/30/20 02:17 Nitroglycerin 0.4 Mg Tab.Sl SL 11/30/20 02:11 0.4 mg ONETIME ONE Administration Ondansetron HCl 4 mg 11/30/20 02:50 11/30/20 02:54 Ondansetron 4 Mg/2 Ml Sdv IVPUSH 11/30/20 02:51 4 mg ONETIME ONE Administration Departure - Departure Time of Disposition: 04:57 Disposition: Refer to Observation Clinical Impression: Chest pain - Discharge Information Forms: ED Department Discharge Sepsis Event Note (ED) - Evaluation Sepsis Screening Result: No Definite Risk - Focused Exam Vital Signs: Vital Signs Temp Pulse Resp BP BP Pulse Ox 11/30/20 04:00 86 20 106/67 95 11/30/20 03:00 88 20 123/69 97 11/30/20 02:17 128/79 11/30/20 01:57 36.4 C 87 20 166/66 H 98 - My Orders Last 24 Hours: My Active Orders 11/30/20 02:15 Aspirin 162 mg PO DAILY 11/30/20 04:54 Admission Status [Patient Status] [ADT] Stat Cardiac Monitoring [RC] . DIRECTED - Assessment/Plan Last 24 Hours: My Active Orders 11/30/20 02:15 Aspirin 162 mg PO DAILY 11/30/20 04:54 Admission Status [Patient Status] [ADT] Stat Cardiac Monitoring [RC] . DIRECTED
[2020-11-30] MEDS ORDERED: Aspirin 81 MG Tab.Chew PO SCH ×3 (02:15→09:00)
[2020-11-30 02:32] LABS: BLOOD UREA NITROGEN,BUN 16 mg/dL (7.0-18.0); CARBON DIOXIDE,CO2 27.3 mmol/L (21.0-32.0); CHLORIDE,CL 104 mmol/L (98-107); GLUCOSE RANDOM 173 mg/dL (74-106); LIPASE 600 U/L (73-393); POTASSIUM,K 3.8 mmol/L (3.5-5.1); SODIUM,NA 140 mmol/L (136-145)
[2020-11-30] MEDS ORDERED: Ondansetron 4 MG/2 ML SDV IVPUSH ONE (02:50)
--- NOTE | 2020-11-30 02:58 | CR ---
Indication: Chest pain Technique: Chest 1 view Comparison: March 05, 2020 Findings/Impression: Cardiovascular and mediastinum: Heart size and vasculature are normal in caliber and appearance. Mediastinum is within normal limits. Lungs and pleural space: Lungs are clear. No sign of infiltrate or mass. No sign of pleural effusion. No pneumothorax. Bones and soft tissues: No significant findings. Dictated by Dinorah Jamil MD @ 11/30/2020 2:56:36 AM (Electronically Signed)
[2020-11-30] MEDS ORDERED: Iopamidol 755 MG/ML 500 ML Multipack Bottle IVPUSH STA (03:35)
--- NOTE | 2020-11-30 04:16 | CT ---
INDICATION: Abdominal pain TECHNIQUE: CT abdomen and pelvis acquired with 75 cc Isovue 370 IV contrast. COMPARISON: November 10, 2018 FINDINGS: Lower chest: Unremarkable. Liver: Hepatic steatosis. Spleen: Unremarkable. Pancreas: Unremarkable. Gallbladder and bile ducts: S/p cholecystectomy. Indeterminate 1.1 cm right adrenal gland nodule. Adrenal glands: Unremarkable. Kidneys: Unremarkable. GI tract: The appendix measures up to 9 mm in diameter, unchanged compared to the prior study. This is likely normal for this patient. No periappendiceal fat stranding. Vascular structures: Unremarkable. Lymph nodes: Unremarkable. Miscellaneous: Small fat containing umbilical hernia. No free air or significant free fluid. Pelvic Organs: Status post hysterectomy. Bones: Unremarkable for age. IMPRESSION: No acute intra-abdominal process identified. Hepatic steatosis. 1.1 cm right adrenal gland nodule. Consider nonemergent right adrenal CT for further evaluation. Small fat containing umbilical hernia. Status post cholecystectomy and hysterectomy. Please note that all CT scans at this facility use dose modulation, iterative reconstruction, and/or weight-based dosing when appropriate to reduce radiation dose to as low as reasonably achievable. Dictated by Dinorah Jamil MD @ 11/30/2020 4:14:56 AM (Electronically Signed)
[2020-11-30] MEDS ORDERED: Alum Hydrox/Mag Hydrox/Simeth 15 ML, Lidocaine 2% 5 ML PO ONE ×2 (04:56)
[2020-11-30] MEDS ORDERED: Ondansetron 4 MG/2 ML SDV IVPUSH PRN (05:34)
[2020-11-30] MEDS ORDERED: Glucagon,Human Recombinant 1 MG Vial IM PRN (06:18)
[2020-11-30] MEDS ORDERED: 50% Dextrose in Water 50 ML Syringe IVPUSH PRN (06:18)
[2020-11-30] MEDS: Pantoprazole 40 MG in Sodium Chloride 0.9% 10 ML IV SCH ×2 (06:34→08:50)
--- NOTE | 2020-11-30 08:20 | PCM.HP.2 ---
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 She describes it as heartburn and pressure radiating from epigastrium up to her chest. She denies any alleviating or exacerbating factors. She reports mild cough but this is nonproductive denies any fevers or chills. She reports mild shortness of breath with ambulation. At home patient did take a baby aspirin and nitro. 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 In the ER no leukocytosis noted hemoglobin 13.4 hematocrit 41.2. INR 1.0. Sodium and potassium 3.860 creatinine 1.2. Blood sugar 173 troponin negative lipase noted to be elevated at 600 Covid swab negative. Chest x-ray obtained negative for any acute cardiopulmonary process. Abdominal CT obtained due to elevated lipase no acute intra-abdominal process noted hepatic steatosis. 1.1 cm adrenal gland noted consider nonemergent right adrenal CT for further eval. Vital signs on arrival to the ER show elevated blood pressure 166/66 heart rate 87 patient afebrile. In ER she was treated with aspirin along with nitro Zofran and GI cocktail. EKG obtained which showed no acute ischemic changes sinus rhythm heart rate in the 80s. Patient will be admitted for atypical chest pain rule out ACS. Review of cardiology notes. Recently seen by Dr Ng on 11/27/2020: Is reaching out to interventional cardiology Dr Truong for possible repeat angiogram. - Noemi 02/20/2019 polar map showed small area of reversible perfusion defect possibly in inferoseptal area, with inferolateral wall. mild fixed defect in inferior wall, post stress/resting LVEF 59%/64% TID < 1 - Most recent September 2020 A1c 8.5% triglycerides 208 total cholesterol 125 LDL 53 HDL 30 TSH 1.61 in 2019 Chest Pain Score (Numeric/FACES): 5 - Related Data Allergies/Adverse Reactions: Allergies Allergy/AdvReac Type Severity Reaction Status Date / Time doxycycline Allergy Hives Verified 11/30/20 02:01 morphine Allergy Itching Verified 11/30/20 02:01 prednisone Allergy Nausea Verified 11/30/20 02:01 Home Medications: Home Meds Aspirin [Adeel Chewable Aspirin] 81 mg PO DAILY 07/26/14 [History] Apixaban [Eliquis] 5 mg PO BID 01/21/17 [History] Gabapentin [Neurontin] 600 mg PO TID 01/21/17 [History] Insulin Detemir [Levemir] 100 units SQ BEDTIME 01/21/17 [History] Albuterol Sulfate 1 unit NEB Q6H PRN 07/18/17 [History] Fenofibrate Nanocrystallized [Fenofibrate] 145 mg PO DAILY 07/18/17 [History] Lisinopril 5 mg PO DAILY 07/18/17 [History] Metoprolol Succinate 50 mg PO DAILY 07/18/17 [History] atorvaSTATin Calcium [Atorvastatin Calcium] 20 mg PO BEDTIME 07/18/17 [History] traMADol [Ultram] 2 tab PO BID PRN 07/18/17 [History] Oxymetazoline [Afrin Original 0.05% Nasal Carr] 1 spray NASBOTH . NEEDED PRN 11/07/17 [History] Insulin Aspart [NovoLOG] 250 units SUBCUT ASDIRECTED 06/19/18 [History] Ondansetron [Zofran] 4 mg PO Q6H PRN 07/17/18 [History] Isosorbide Mononitrate [Isosorbide Mononitrate ER] 90 mg PO BEDTIME 03/25/19 [History] Nitroglycerin 0.4 mg SL Q5M PRN MDD 3 doses 03/25/19 [History] Ranolazine [Ranexa] 1,000 mg PO Q12H 03/25/19 [History] Albuterol Sulfate [Proair Hfa] 2 puff INH QID PRN #1 hfa.aer.ad 03/26/19 [Rx] Insulin Detemir [Levemir] 80 units SQ DAILY 03/05/20 [History] Isosorbide Mononitrate [Imdur] 90 mg PO DAILY #45 tab.er 11/30/20 [Rx] Omeprazole 20 mg PO BID #30 tab 11/30/20 [Rx] Sucralfate 1 gm PO QIDACANDBED #120 tab 11/30/20 [Rx] Past Medical History HEENT History: Reports: Glaucoma, Impaired Vision, Other (See Below) Other HEENT History: needs glasses but doesnt wear them Cardiovascular History: Reports: Angina, High Cholesterol, Hypertension, IN, Stents, Other (See Below) Other Cardiovascular History: hx of IN with cardiac stenting. 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: Musculoskeletal History: Reports: Arthritis Other Musculoskeletal History: rt leg below the knee amputation Neurological History: Reports: Headaches, Chronic, Neuropathy, Diabetic, Other (See Below) Other Neuro History: hx: Headaches Psychiatric History: Reports: None Endocrine/Metabolic History: Reports: Diabetes, Type II, Obesity/BMI 30+ Hematologic History: Reports: Anemia, Blood Transfusion(s) Other Hematologic History: hx blood clots Immunologic History: Reports: None Oncologic (Cancer) History: Reports: None Dermatologic History: Reports: None - Infectious Disease History Infectious Disease History: Reports: None - Past Surgical History Head Surgeries/Procedures: Reports: None HEENT Surgical History: Reports: Myringotomy w Tube(s) Other HEENT Surgeries/Procedures: tube placement Cardiovascular Surgical History: Reports: Coronary Artery Stent Other Cardiovascular Surgeries/Procedures: 2014 Respiratory Surgical History: Reports: None GI Surgical History: Reports: Cholecystectomy, Colonoscopy, EGD Female Surgical History: Reports: Hysterectomy Endocrine Surgical History: Reports: None Neurological Surgical History: Reports: None Musculoskeletal Surgical History: Reports: Amputation, Carpal Tunnel Other Musculoskeletal Surgeries/Procedures:: R below the knee amputation Oncologic Surgical History: Reports: None Dermatological Surgical History: Reports: None Social & Family History - Family History Family Medical History: No Pertinent Family History HEENT: Reports: Cataract, Impaired Vision, Otitis Media, Sinusitis Cardiac: Reports: High Cholesterol, Hypertension, IN Other Cardiac Family History: heart problems maternal and paternal sides Respiratory: Reports: Asthma, COPD, Sleep Apnea GI: Reports: None Musculoskeletal: Reports: Arthritis, Gout Neurological: Reports: CVA Psychiatric: Reports: None Endocrine/Metabolic: Reports: Diabetes, Type I, Diabetes, type II, Hyperthyroidism, Obesity/MBI 30+ Hematologic: Reports: Anemia Oncologic: Reports: Lung - Tobacco Use Tobacco Use Status *Q: Former Tobacco User Used Tobacco, but Quit: Yes Month/Year Tobacco Last Used: 4 Tobacco Use Comment: quit 4 years ago Second Hand Smoke Exposure: No - Caffeine Use Caffeine Use: Reports: Soda Caffeine Use Comment: "sometimes" - Recreational Drug Use Recreational Drug Use: No H&P Review of Systems - Review of Systems: Review Of Systems: See Below General: Reports: No Symptoms. Denies: Fever, Chills, Malaise, Weakness HEENT: Reports: No Symptoms. Denies: Headaches, Sinus Congestion, Sore Throat Pulmonary: Denies: Shortness of Breath Cardiovascular: Denies: Chest Pain Gastrointestinal: Reports: Abdominal Pain (epigastric), Nausea (intermittent). Denies: Vomiting Genitourinary: Reports: No Symptoms. Denies: Dysuria, Frequency Musculoskeletal: Reports: No Symptoms Skin: Reports: No Symptoms Psychiatric: Reports: No Symptoms Neurological: Reports: No Symptoms Hematologic/Lymphatic: Reports: No Symptoms Immunologic: Reports: No Symptoms Exam - Exam Exam: See Below - Vital Signs Vital Signs: Last Vital Signs Temp 96.9 F 11/30/20 08:00 Pulse 87 11/30/20 08:00 Resp 16 11/30/20 08:00 BP 116/64 11/30/20 08:00 Pulse Ox 95 11/30/20 08:00 Weight: 105.279 kg - Exam General: Alert, Oriented, Cooperative HEENT: Conjunctiva Clear, Mucosa Moist & Toco, Posterior Pharynx Clear Lungs: Clear to Auscultation, Normal Respiratory Effort Cardiovascular: Regular Rate, Diastolic Murmur GI/Abdominal Exam: Normal Bowel Sounds, Soft, Tender (epigastric) Extremities: Normal Inspection, Normal Range of Motion, Non-Tender, No Pedal Edema Neuro Extensive - Mental Status: Alert, Oriented x3, Normal Mood/Affect Psychiatric: Alert, Normal Affect, Normal Mood - Patient Data Lab Results Last 24 hrs: Laboratory Results - last 24 hr 11/30/20 11/30/20 11/30/20 Range/Units 01:55 01:55 01:55 WBC 7.03 (4.0-11.0) K/uL RBC 4.88 (4.30-5.90) M/uL Hgb 13.4 (12.0-16.0) g/dL Hct 41.2 (36.0-46.0) % MCV 84.4 (80.0-98.0) fL MCH 27.5 (27.0-32.0) pg MCHC 32.5 (31.0-37.0) g/dL RDW Std Deviation 47.8 (28.0-62.0) fl RDW Coeff of Demond 16 H (11.0-15.0) % Plt Count 290 (150-400) K/uL MPV 11.10 (7.40-12.00) fL Neut % (Auto) 45.3 L (48.0-80.0) % Lymph % (Auto) 44.0 H (16.0-40.0) % [place] % (Auto) 9.4 (0.0-15.0) % Eos % (Auto) 1.0 (0.0-7.0) % Baso % (Auto) 0.3 (0.0-1.5) % Neut # (Auto) 3.2 (1.4-5.7) K/uL Lymph # (Auto) 3.1 H (0.6-2.4) K/uL [place] # (Auto) 0.7 (0.0-0.8) K/uL Eos # (Auto) 0.1 (0.0-0.7) K/uL Baso # (Auto) 0.0 (0.0-0.1) K/uL Nucleated RBC % 0.0 /100WBC Nucleated RBCs # 0 K/uL INR 1.00 Sodium 140 (136-145) mmol/L Potassium 3.8 (3.5-5.1) mmol/L Chloride 104 (98-107) mmol/L Carbon Dioxide 27.3 (21.0-32.0) mmol/L BUN 16 (7.0-18.0) mg/dL Creatinine 1.2 H (0.6-1.0) mg/dL Est Cr Clr Drug Dosing 48.46 mL/min Estimated GFR (MDRD) 48.4 ml/min Glucose 173 H (74-106) mg/dL POC Glucose (70-99) mg/dL Calcium 8.7 (8.5-10.1) mg/dL Total Bilirubin 0.3 (0.2-1.0) mg/dL AST 16 (15-37) IU/L ALT 26 (14-63) IU/L Alkaline Phosphatase 44 L (46-116) U/L Troponin I < 0.050 (0.000-0.056) ng/mL Total Protein 6.9 (6.4-8.2) g/dL Albumin 3.3 L (3.4-5.0) g/dL Globulin 3.6 (2.6-4.0) g/dL Albumin/Globulin Ratio 0.9 (0.9-1.6) Lipase 600 H (73-393) U/L SARS-CoV-2 RNA ([place]ILFREDO) (NEGATIVE) 11/30/20 11/30/20 11/30/20 Range/Units 02:19 04:09 06:09 WBC (4.0-11.0) K/uL RBC (4.30-5.90) M/uL Hgb (12.0-16.0) g/dL Hct (36.0-46.0) % MCV (80.0-98.0) fL MCH (27.0-32.0) pg MCHC (31.0-37.0) g/dL RDW Std Deviation (28.0-62.0) fl RDW Coeff of Demond (11.0-15.0) % Plt Count (150-400) K/uL MPV (7.40-12.00) fL Neut % (Auto) (48.0-80.0) % Lymph % (Auto) (16.0-40.0) % [place] % (Auto) (0.0-15.0) % Eos % (Auto) (0.0-7.0) % Baso % (Auto) (0.0-1.5) % Neut # (Auto) (1.4-5.7) K/uL Lymph # (Auto) (0.6-2.4) K/uL [place] # (Auto) (0.0-0.8) K/uL Eos # (Auto) (0.0-0.7) K/uL Baso # (Auto) (0.0-0.1) K/uL Nucleated RBC % /100WBC Nucleated RBCs # K/uL INR Sodium (136-145) mmol/L Potassium (3.5-5.1) mmol/L Chloride (98-107) mmol/L Carbon Dioxide (21.0-32.0) mmol/L BUN (7.0-18.0) mg/dL Creatinine (0.6-1.0) mg/dL Est Cr Clr Drug Dosing mL/min Estimated GFR (MDRD) ml/min Glucose (74-106) mg/dL POC Glucose 167 H (70-99) mg/dL Calcium (8.5-10.1) mg/dL Total Bilirubin (0.2-1.0) mg/dL AST (15-37) IU/L ALT (14-63) IU/L Alkaline Phosphatase (46-116) U/L Troponin I < 0.050 (0.000-0.056) ng/mL Total Protein (6.4-8.2) g/dL Albumin (3.4-5.0) g/dL Globulin (2.6-4.0) g/dL Albumin/Globulin Ratio (0.9-1.6) Lipase (73-393) U/L SARS-CoV-2 RNA ([place]) NEGATIVE (NEGATIVE) 11/30/20 Range/Units 06:47 WBC (4.0-11.0) K/uL RBC (4.30-5.90) M/uL Hgb (12.0-16.0) g/dL Hct (36.0-46.0) % MCV (80.0-98.0) fL MCH (27.0-32.0) pg MCHC (31.0-37.0) g/dL RDW Std Deviation (28.0-62.0) fl RDW Coeff of Demond (11.0-15.0) % Plt Count (150-400) K/uL MPV (7.40-12.00) fL Neut % (Auto) (48.0-80.0) % Lymph % (Auto) (16.0-40.0) % [place] % (Auto) (0.0-15.0) % Eos % (Auto) (0.0-7.0) % Baso % (Auto) (0.0-1.5) % Neut # (Auto) (1.4-5.7) K/uL Lymph # (Auto) (0.6-2.4) K/uL [place] # (Auto) (0.0-0.8) K/uL Eos # (Auto) (0.0-0.7) K/uL Baso # (Auto) (0.0-0.1) K/uL Nucleated RBC % /100WBC Nucleated RBCs # K/uL INR Sodium (136-145) mmol/L Potassium (3.5-5.1) mmol/L Chloride (98-107) mmol/L Carbon Dioxide (21.0-32.0) mmol/L BUN (7.0-18.0) mg/dL Creatinine (0.6-1.0) mg/dL Est Cr Clr Drug Dosing mL/min Estimated GFR (MDRD) ml/min Glucose (74-106) mg/dL POC Glucose (70-99) mg/dL Calcium (8.5-10.1) mg/dL Total Bilirubin (0.2-1.0) mg/dL AST (15-37) IU/L ALT (14-63) IU/L Alkaline Phosphatase (46-116) U/L Troponin I < 0.050 (0.000-0.056) ng/mL Total Protein (6.4-8.2) g/dL Albumin (3.4-5.0) g/dL Globulin (2.6-4.0) g/dL Albumin/Globulin Ratio (0.9-1.6) Lipase (73-393) U/L SARS-CoV-2 RNA ([place]O) (NEGATIVE) Result Diagrams: 11/30/20 01:55 11/30/20 01:55 Sepsis Event Note - Evaluation Sepsis Screening Result: No Definite Risk - Focused Exam Vital Signs: Vital Signs Temp Pulse Resp BP BP Pulse Ox 11/30/20 08:00 96.9 F 87 16 116/64 95 11/30/20 05:45 96.7 F L 89 16 109/66 96 11/30/20 05:30 88 20 117/68 99 11/30/20 04:00 86 20 106/67 95 11/30/20 03:00 88 20 123/69 97 11/30/20 02:17 128/79 11/30/20 01:57 97.6 F 87 20 166/66 H 98 - Problem List (1) Chest pain SNOMED Code(s): 16363921 ICD Code: R07.9 - CHEST PAIN, UNSPECIFIED Status: Acute Current Visit: Yes (2) CAD (coronary artery disease) SNOMED Code(s): 09740070 ICD Code: I25.10 - ATHSCL HEART DISEASE OF [place] CORONARY ARTERY W/O ANG PCTRS Status: Chronic Current Visit: Yes Qualifiers: Coronary Disease-Associated Artery/Lesion type: [place] artery [place] vs. transplanted heart: [place] heart Associated angina: with stable angina Qualified Code(s): I25.118 - Atherosclerotic heart disease of [place] coronary artery with other forms of angina pectoris (3) Arterial vascular disease SNOMED Code(s): 41493520 ICD Code: I70.90 - UNSPECIFIED ATHEROSCLEROSIS Status: Chronic Current Vi sit: No (4) COPD (chronic obstructive pulmonary disease) SNOMED Code(s): 66423932 ICD Code: J44.9 - CHRONIC OBSTRUCTIVE PULMONARY DISEASE, UNSPECIFIED Status: Chronic Priority: Medium Current Visit: No Qualifiers: COPD type: chronic bronchitis Chronic bronchitis type: mixed simple and mucopurulent Qualified Code(s): J41.8 - Mixed simple and mucopurulent chronic bronchitis (5) Diabetes mellitus SNOMED Code(s): 35879168 ICD Code: E11.9 - TYPE 2 DIABETES MELLITUS WITHOUT COMPLICATIONS Status: Chronic Priority: Medium Current Visit: No (6) HTN, Essential hypertension SNOMED Code(s): 21335043 ICD Code: I10 - ESSENTIAL (PRIMARY) HYPERTENSION Status: Chronic Current Visit: No (7) Hx of right BKA SNOMED Code(s): 810982413785190, 112544895575399 ICD Code: Z89.511 - ACQUIRED ABSENCE OF RIGHT LEG BELOW KNEE Status: Chronic Current Visit: No (8) Hypertension SNOMED Code(s): 48075731 ICD Code: I10 - ESSENTIAL (PRIMARY) HYPERTENSION Status: Chronic Priority: Medium Current Visit: No Qualifiers: Hypertension type: unspecified secondary hypertension Qualified Code(s): I15.9 - Secondary hypertension, unspecified Problem List Initiated/Reviewed/Updated: Yes Orders Last 24hrs: Active Orders 24 hr Category Date Time Status Admission Status [Patient Status] [ADT] Stat ADT 11/30/20 04:54 Active Accu Check [Blood Glucose Check, Bedside] [RC] TIDAC Care 11/30/20 07:30 Active Antiembolic Devices [RC] PER UNIT ROUTINE Care 11/30/20 05:32 Active Cardiac Monitoring [RC] . DIRECTED Care 11/30/20 04:54 Active Telemetry Monitoring [Cardiac Monitoring] [RC] . Care 11/30/20 05:30 Active DIRECTED Vital Signs [RC] Q4H Care 11/30/20 08:00 Active ADA Diabetic [[place] [employer] Diet] [DIET Diet 11/30/20 Breakfast Active ] Aspirin Med 11/30/20 09:00 Active 81 mg PO DAILY Dextrose 50% in Water Med 11/30/20 06:18 Active 50 ml IVPUSH ASDIRECTED PRN Glucagon,Human Recombinant [GlucaGen] Med 11/30/20 06:18 Active 1 mg IM ASDIRECTED PRN Insulin Aspart [NovoLOG] Med 11/30/20 07:30 Active See Protocol SUBCUT TIDAC Ondansetron [Zofran] Med 11/30/20 05:34 Active 4 mg IVPUSH Q4H PRN Pantoprazole [ProTONIX IV] 40 mg Med 11/30/20 05:45 Active Sodium Chloride 0.9% [Normal Saline] 10 ml IV DAILY SCD [Sequential Compression Device] [OM.PC] Routine Oth 11/30/20 05:32 Ordered Medication Orders Aspirin (Aspirin 81 Mg Tab.Chew) 81 mg PO DAILY TIFFANIE Dextrose/Water (50% Dextrose In Water 50 Ml Syringe) 50 ml IVPUSH ASDIRECTED PRN PRN Reason: Hypoglycemia Glucagon (Glucagon,Human Recombinant 1 Mg Vial) 1 mg IM ASDIRECTED PRN PRN Reason: Hypoglycemia Pantoprazole Sodium 40 mg/ (Sodium Chloride) 10 mls @ 300 mls/hr IV DAILY TIFFANIE Last Admin: 11/30/20 06:34 Dose: 300 mls/hr Documented by: PASTGEN Insulin Aspart (Insulin Aspart 100 Units/Ml 3 Ml Pen) 0 unit SUBCUT TIDAC TIFFANIE; Protocol Ondansetron HCl (Ondansetron 4 Mg/2 Ml Sdv) 4 mg IVPUSH Q4H PRN PRN Reason: Nausea/Vomiting Assessment/Plan Comment:: This 45-year-old female admitted with atypical chest pain rule out ACS 1. Chest pain -Monitor on telemetry -Troponin trended x3 all negative -Has significant cardiovascular risk with recent cardiology appointment to establish repeat angiogram testing -Continue CAD medications including Imdur, Ranexa, metoprolol, lisinopril, Eliquis, statin and aspirin -We will reach out to Dr. Ng. He was reaching out to interventional cardiology in [place] for recommendations and possible intervention in the future. -Does have elevated lipase no CT findings of acute pancreatitis. This could be secondary to diabetic medication she is currently taking Ozempic. Instructed her to hold this for now she may need to increase Levemir dosing. She will see Dr. Lynch soon to help evaluate further dosing. May consider stopping Ozempic completely. 2. Type 2 diabetes -ADA diet -Continue insulin -NovoLog sliding scale with meals -Check blood sugar 3 times daily AC 3. Hypertension/HLD/history arterial vascular disease history thrombosis -Continue lisinopril statin and fenofibrate -Blood pressure stable well-controlled -Continue Eliquis VTE prophylaxis: Eliquis GI prophylaxis: Protonix CODE STATUS: Full code Dispo: Today Discharge plan: Troponins x4 negative. Patient feeling improved today she is tolerating diet has intermittent nausea and some mild epigastric pain but otherwise patient is very eager to go home. I did return to Dr. Cardona, cardiology he is currently in the process of reaching out to Dr. Truong to set up angiogram in [place]. Patient is aware of this he recommends no changes at this time. With concerns of possible mild pancreatitis we will hold Ozempic this may need to be stopped altogether we will leave this to PCP but she will hold this until she sees PCP. Continue all home medications. Will start omeprazole twice daily for 2 weeks as well Carafate to help with any possible gastritis. She reports she feels this is more significant heartburn that her chest pain as nitro did not help. She reports when she has chest pain nitro typically helps the anginal pain. Patient will be discharged home today. Continue follow-up with PCP as well as cardiology as previously scheduled and to be set up.
[2020-11-30] MEDS ORDERED: traMADol 50 MG Tab PO PRN (08:22)
[2020-11-30] MEDS ORDERED: Oxymetazoline 0.05% Nasal Spray 15 ML Bottle NASBOTH PRN (08:22)
[2020-11-30] MEDS ORDERED: Sodium Chloride 0.9% 2.5 ML Syringe FLUSH PRN (08:26)
[2020-11-30] MEDS ORDERED: Albuterol/Ipratropium 3.0-0.5 MG/3 ML Neb Soln NEB PRN (08:26)
[2020-11-30] MEDS ORDERED: Acetaminophen 325 MG Tab PO PRN (08:26)
[2020-11-30] MEDS: Insulin Aspart 100 Units/ML 3 ML Pen SUBCUT SCH ×2 (08:45→12:09)
[2020-11-30] MEDS ORDERED: Metoprolol Succinate 50 MG Tab.ER PO SCH (09:00)
[2020-11-30] MEDS ORDERED: Apixaban 5 MG Tab PO SCH (09:00)
[2020-11-30] MEDS ORDERED: Lisinopril 5 MG Tab PO SCH (09:00)
[2020-11-30] MEDS ORDERED: Sucralfate 1 GM Tab PO SCH (11:30)
[2020-11-30 13:38] VITALS: BP 100/64; PULSE 85
[2020-11-30] MEDS ORDERED: Gabapentin 300 MG Cap PO SCH (14:00)
[2020-11-30] MEDS ORDERED: atorvaSTATin 20 MG Tab PO SCH (21:00)
[2020-11-30] MEDS ORDERED: Isosorbide Mononitrate 30 MG Tab.ER PO SCH (21:00)
[2020-11-30] MEDS ORDERED: Insulin Detemir 100 Units/ML 3 ML Pen SUBCUT SCH (21:00)
== END 2020-11-30 14:45 | disposition home or self-care (01) ==
LOC: MW.ED 01:51 → MW.MS 04:54
PROVIDERS: ADMIT Student in an Organized Health Care Education/Training Program; ATTEND Student in an Organized Health Care Education/Training Program
DX: R07.89 Other chest pain (principal); I25.10 Atherosclerotic heart disease of native coronary artery without angina pectoris; E11.9 Type 2 diabetes mellitus without complications; E78.5 Hyperlipidemia, unspecified; J44.9 Chronic obstructive pulmonary disease, unspecified; I25.2 Old myocardial infarction; E66.9 Obesity, unspecified; I70.90 Unspecified atherosclerosis; J41.8 Mixed simple and mucopurulent chronic bronchitis; Z20.822 Contact with and (suspected) exposure to COVID-19; Z88.8 Allergy status to other drugs, medicaments and biological substances; Z79.82 Long term (current) use of aspirin; Z79.899 Other long term (current) drug therapy; Z89.511 Acquired absence of right leg below knee; Z88.5 Allergy status to narcotic agent; Z95.5 Presence of coronary angioplasty implant and graft; Z87.891 Personal history of nicotine dependence; Z90.49 Acquired absence of other specified parts of digestive tract; Z68.41 Body mass index [BMI] 40.0-44.9, adult
CPT/HCPCS: 36415; 71045; 74177; 80053; 82947; 83690; 84484; 85025; 85610; 93005; 96374; 99285; A9270; C9113; J1815; J2405; Q9967; U0002; 96375; G0378

== ENCOUNTER 2021-04-25 17:47 | Observation (INO) | payer MEDICARE, MEDICAID ==
[2021-04-25] MEDS ORDERED: Sodium Chloride 0.9% 2.5 ML Syringe FLUSH PRN (17:49)
[2021-04-25] MEDS ORDERED: Sodium Chloride 0.9% 10 ML Syringe FLUSH PRN (17:49)
[2021-04-25] MEDS: Nitroglycerin 0.4 MG Tab.SL SL PRN ×2 (18:07→18:36)
[2021-04-25 18:17] LABS: BLOOD UREA NITROGEN,BUN 15 mg/dL (7.0-18.0); CARBON DIOXIDE,CO2 25.4 mmol/L (21.0-32.0); CHLORIDE,CL 104 mmol/L (98-107); GLUCOSE RANDOM 166 mg/dL (74-106); LIPASE 212 U/L (73-393); POTASSIUM,K 4.3 mmol/L (3.5-5.1); SODIUM,NA 137 mmol/L (136-145)
[2021-04-25] MEDS ORDERED: Glucagon,Human Recombinant 1 MG Vial IM PRN (20:00)
[2021-04-25] MEDS ORDERED: Acetaminophen 500 MG Tab PO PRN (20:00)
[2021-04-25] MEDS ORDERED: Albuterol/Ipratropium 3.0-0.5 MG/3 ML Neb Soln NEB PRN (20:00)
[2021-04-25] MEDS ORDERED: 50% Dextrose in Water 50 ML Syringe IVPUSH PRN (20:00)
[2021-04-25] MEDS ORDERED: Acetaminophen/HYDROcodone 325-5 MG Tab PO PRN (22:48)
[2021-04-25] MEDS ORDERED: Oxymetazoline 0.05% Nasal Spray 15 ML Bottle NASBOTH PRN (22:48)
[2021-04-25] MEDS ORDERED: Insulin Detemir 100 Units/ML 3 ML Pen SUBCUT ONE (22:48)
[2021-04-25] MEDS ORDERED: traMADol 50 MG Tab PO PRN (22:48)
[2021-04-25] MEDS: Apixaban 5 MG Tab PO SCH (23:24)
[2021-04-25] MEDS: Gabapentin 300 MG Cap PO SCH (23:24)
[2021-04-25] MEDS: Insulin Aspart 100 Units/ML 3 ML Pen SUBCUT SCH (23:34)
[2021-04-26] MEDS: Gabapentin 300 MG Cap PO SCH (05:29)
[2021-04-26] MEDS: Sucralfate 1 GM Tab PO SCH ×2 (08:06→11:59)
[2021-04-26] MEDS: Apixaban 5 MG Tab PO SCH (08:11)
[2021-04-26 08:13] VITALS: BP 121/75; PULSE 78
[2021-04-26] MEDS: Insulin Aspart 100 Units/ML 3 ML Pen SUBCUT SCH ×2 (08:25→12:02)
[2021-04-26] MEDS ORDERED: Omeprazole 20 MG Cap.CR PO SCH (09:00)
[2021-04-26] MEDS ORDERED: Lisinopril 5 MG Tab PO SCH (09:00)
[2021-04-26] MEDS ORDERED: Aspirin 81 MG Tab.Chew PO SCH (09:00)
[2021-04-26] MEDS ORDERED: Fluticasone/Salmeterol 250-50 MCG Inhalation Powder 14/Diskus INH SCH (09:00)
[2021-04-26] MEDS ORDERED: Metoprolol Succinate 50 MG Tab.ER PO SCH (09:00)
[2021-04-26] MEDS ORDERED: Isosorbide Mononitrate 60 MG Tab.ER PO SCH (09:00)
[2021-04-26] MEDS ORDERED: atorvaSTATin 20 MG Tab PO SCH (21:00)
== END 2021-04-26 13:05 | disposition home or self-care (01) ==
LOC: MW.ED 17:47 → MW.MS 19:16
PROVIDERS: ADMIT Student in an Organized Health Care Education/Training Program; ATTEND Student in an Organized Health Care Education/Training Program
DX: R07.89 Other chest pain (principal); I10 Essential (primary) hypertension; J44.9 Chronic obstructive pulmonary disease, unspecified; I25.10 Atherosclerotic heart disease of native coronary artery without angina pectoris; K21.9 Gastro-esophageal reflux disease without esophagitis; E78.00 Pure hypercholesterolemia, unspecified; I25.2 Old myocardial infarction; E66.9 Obesity, unspecified; G43.909 Migraine, unspecified, not intractable, without status migrainosus; E11.40 Type 2 diabetes mellitus with diabetic neuropathy, unspecified; S88.111A Complete traumatic amputation at level between knee and ankle, right lower leg, initial encounter; Z98.890 Other specified postprocedural states; Z88.1 Allergy status to other antibiotic agents; Z88.5 Allergy status to narcotic agent; Z79.82 Long term (current) use of aspirin; Z89.511 Acquired absence of right leg below knee; Z20.822 Contact with and (suspected) exposure to COVID-19
CPT/HCPCS: 36415; 71045; 80053; 80061; 82947; 83036; 83690; 84439; 84443; 84484; 85025; 85379; 93005; 99285; A9270; G0378; J1815; U0002

== ENCOUNTER 2021-10-18 15:59 | Emergency (ER) | payer MEDICARE, MEDICAID ==
[2021-10-18] MEDS ORDERED: Acetaminophen/HYDROcodone 325-5 MG Tab PO ONE (16:36)
[2021-10-18 17:21] LABS: CARBON DIOXIDE,CO2 26.7 mmol/L (21.0-32.0)
[2021-10-18] MEDS ORDERED: Iopamidol 755 MG/ML 500 ML Multipack Bottle IVPUSH STA (18:18)
[2021-10-18 19:47] VITALS: BP 109/55; PULSE 72
== END 2021-10-18 19:53 | disposition home or self-care (01) ==
LOC: MW.ED 15:59
DX: R10.31 Right lower quadrant pain (principal); I25.2 Old myocardial infarction; E78.00 Pure hypercholesterolemia, unspecified; J44.9 Chronic obstructive pulmonary disease, unspecified; E11.40 Type 2 diabetes mellitus with diabetic neuropathy, unspecified; E66.9 Obesity, unspecified; Z79.4 Long term (current) use of insulin; Z79.899 Other long term (current) drug therapy; Z88.5 Allergy status to narcotic agent; Z88.8 Allergy status to other drugs, medicaments and biological substances; Z79.82 Long term (current) use of aspirin; Z87.891 Personal history of nicotine dependence
CPT/HCPCS: 36415; 74177; 80053; 81003; 85025; 99284; A9270; Q9967

== ENCOUNTER 2022-01-31 14:23 | Emergency (ER) | payer MEDICARE, MEDICAID ==
[2022-01-31 20:27] VITALS: BP 130/65; PULSE 76
== END 2022-01-31 17:51 | disposition home or self-care (01) ==
LOC: MW.ED 14:23
DX: M25.562 Pain in left knee (principal); J44.9 Chronic obstructive pulmonary disease, unspecified; E78.00 Pure hypercholesterolemia, unspecified; E11.40 Type 2 diabetes mellitus with diabetic neuropathy, unspecified; I10 Essential (primary) hypertension; E66.9 Obesity, unspecified; Z68.35 Body mass index [BMI] 35.0-35.9, adult; Z88.1 Allergy status to other antibiotic agents; Z88.6 Allergy status to analgesic agent; Z79.82 Long term (current) use of aspirin; Z79.01 Long term (current) use of anticoagulants; Z79.4 Long term (current) use of insulin; W18.39XA Other fall on same level, initial encounter
CPT/HCPCS: 72100; 72100-26; 73502-26-LT; 73502-LT; 73552-26-LT; 73552-LT; 73562-26-LT; 73562-LT; 73590-26-LT; 73590-LT; 99284

== ENCOUNTER 2022-05-29 21:13 | Emergency (ER) | payer MEDICARE, MEDICAID ==
[2022-05-29] MEDS ORDERED: Sodium Chloride 0.9% 10 ML Syringe FLUSH PRN (21:18)
[2022-05-29] MEDS ORDERED: Sodium Chloride 0.9% 2.5 ML Syringe FLUSH PRN (21:18)
[2022-05-29] MEDS: Nitroglycerin 0.4 MG Tab.SL SL PRN ×3 (21:29→21:46)
[2022-05-29 21:48] LABS: CARBON DIOXIDE,CO2 29.7 mmol/L (21.0-32.0); POTASSIUM,K 3.9 mmol/L (3.5-5.1)
[2022-05-29 23:58] VITALS: BP 104/55; PULSE 81
== END 2022-05-29 23:56 | disposition home or self-care (01) ==
LOC: MW.ED 21:13
DX: R07.2 Precordial pain (principal); R42 Dizziness and giddiness; E78.00 Pure hypercholesterolemia, unspecified; I10 Essential (primary) hypertension; I25.2 Old myocardial infarction; J44.9 Chronic obstructive pulmonary disease, unspecified; K21.9 Gastro-esophageal reflux disease without esophagitis; M19.90 Unspecified osteoarthritis, unspecified site; E11.9 Type 2 diabetes mellitus without complications; I25.10 Atherosclerotic heart disease of native coronary artery without angina pectoris; E66.9 Obesity, unspecified; Z68.41 Body mass index [BMI] 40.0-44.9, adult; Z88.1 Allergy status to other antibiotic agents; Z88.5 Allergy status to narcotic agent; Z88.8 Allergy status to other drugs, medicaments and biological substances; Z79.82 Long term (current) use of aspirin; Z79.01 Long term (current) use of anticoagulants; Z79.899 Other long term (current) drug therapy; Z79.4 Long term (current) use of insulin; Z86.16 Personal history of COVID-19
CPT/HCPCS: 36415; 71045; 80053; 84484; 85025; 93005; 99285; A9270; J3490; 93010; 99284

== ENCOUNTER 2022-08-22 15:27 | Emergency (ER) | payer MEDICARE, MEDICAID ==
[2022-08-22 15:58] VITALS: BP 115/75; PULSE 81
== END 2022-08-22 20:00 | disposition left against medical advice (07) ==
LOC: MW.ED 15:27
DX: Z53.21 Procedure and treatment not carried out due to patient leaving prior to being seen by health care provider (principal)

== ENCOUNTER 2022-09-14 22:38 | Emergency (ER) | payer MEDICAID, MEDICARE ==
[2022-09-14] MEDS ORDERED: Famotidine 20 MG/2 ML SDV IVPUSH ONE (23:39)
[2022-09-14] MEDS ORDERED: Sodium Chloride 0.9% 10 ML Syringe FLUSH PRN (23:39)
[2022-09-14] MEDS ORDERED: Sodium Chloride 0.9% 2.5 ML Syringe FLUSH PRN (23:39)
[2022-09-14] MEDS ORDERED: Sucralfate Suspension 1 GM/10 ML Cup PO ONE (23:41)
[2022-09-14 23:47] LABS: BASOPHILS PERCENT AUTO 0.2 % (0.0-1.5); EOSINOPHILS PERCENT AUTO 0.7 % (0.0-7.0); HEMOGLOBIN 12.3 g/dL (12.0-16.0); LYMPHOCYTES ABSOLUTE AUTO 2.3 K/uL (0.6-2.4); LYMPHOCYTES PERCENT AUTO 40.7 % (16.0-40.0); MEAN CORPUSCULAR HEMOGLOBIN 27.2 pg (27.0-32.0); MEAN CORPUSCULAR HGB CONC 32.4 g/dL (31.0-37.0); MEAN CORPUSCULAR VOLUME 84.1 fL (80.0-98.0); MONOCYTES ABSOLUTE AUTO 0.3 K/uL (0.0-0.8); NEUTROPHILS PERCENT AUTO 52.4 % (48.0-80.0); NRBC ABSOLUTE 0 K/uL; PLATELET COUNT,PLT 165 K/uL (150-400); RED BLOOD CELL COUNT 4.52 M/uL (4.30-5.90); WHITE BLOOD CELL COUNT,WBC 5.67 K/uL (4.0-11.0)
[2022-09-14 23:59] LABS: A/G RATIO 0.8 (0.9-1.6); ALBUMIN 3.1 g/dL (3.4-5.0); BILIRUBIN TOTAL 0.2 mg/dL (0.2-1.0); CALCIUM 8.5 mg/dL (8.5-10.1); EST CRCL DRUG DOSING (CG) 59.41 mL/min; POTASSIUM,K 3.3 mmol/L (3.5-5.1); PROTEIN TOTAL,TP 6.8 g/dL (6.4-8.2)
[2022-09-15 00:05] LABS: INR 0.99 (0.86-1.11)
[2022-09-15] MEDS ORDERED: Acetaminophen/HYDROcodone 325-10 MG Tab PO ONE (02:51)
[2022-09-15 04:23] VITALS: BP 128/63; PULSE 82
== END 2022-09-15 04:20 | disposition home or self-care (01) ==
LOC: MW.ED 22:38
DX: I25.118 Atherosclerotic heart disease of native coronary artery with other forms of angina pectoris (principal); K85.90 Acute pancreatitis without necrosis or infection, unspecified; I10 Essential (primary) hypertension; I25.2 Old myocardial infarction; E78.00 Pure hypercholesterolemia, unspecified; J44.9 Chronic obstructive pulmonary disease, unspecified; K21.9 Gastro-esophageal reflux disease without esophagitis; M19.90 Unspecified osteoarthritis, unspecified site; E11.40 Type 2 diabetes mellitus with diabetic neuropathy, unspecified; E66.9 Obesity, unspecified; Z68.41 Body mass index [BMI] 40.0-44.9, adult; Z86.16 Personal history of COVID-19; Z88.8 Allergy status to other drugs, medicaments and biological substances; Z88.5 Allergy status to narcotic agent; Z79.82 Long term (current) use of aspirin; Z79.01 Long term (current) use of anticoagulants; Z79.4 Long term (current) use of insulin; Z79.899 Other long term (current) drug therapy
CPT/HCPCS: 36415; 71045; 80053; 83690; 84484; 85025; 85610; 93005; 96374; 99285; A9270; J3490; 93010

== ENCOUNTER 2022-12-17 19:23 | Emergency (ER) | payer MEDICARE ==
[2022-12-17] MEDS ORDERED: Sodium Chloride 0.9% 1,000 ML IV ONE ×2 (19:32→20:31)
[2022-12-17 19:50] LABS: BASE EXCESS VENOUS -0.5 (-2.0-3.0); BASOPHILS ABSOLUTE AUTO 0.03 K/uL (0.00-0.20); BASOPHILS PERCENT AUTO 0.6 % (0.0-1.0); EOSINOPHILS ABSOLUTE AUTO 0.02 K/uL (0.00-0.45); EOSINOPHILS PERCENT AUTO 0.4 % (0.0-6.0); HEMATOCRIT 38.4 % (37.0-47.0); HEMOGLOBIN 12.5 g/dL (12.0-16.0); IMMATURE GRAN ABSOLUTE AUTO 0.01 K/uL (0.00-0.05); IMMATURE GRAN PERCENT AUTO 0.2 % (0.0-0.4); LYMPHOCYTES ABSOLUTE AUTO 1.86 K/uL (1.00-4.80); LYMPHOCYTES PERCENT AUTO 34.5 % (24.0-44.0); MEAN CORPUSCULAR HEMOGLOBIN 26.3 pg (28.0-32.0); MEAN CORPUSCULAR HGB CONC 32.6 g/dL (32.0-36.0); MEAN CORPUSCULAR VOLUME 80.8 fL (83.0-99.0); MEAN PLATELET VOLUME 11.7 fL (9.4-12.3); MONOCYTES ABSOLUTE AUTO 0.34 K/uL (0.00-0.80); MONOCYTES PERCENT AUTO 6.3 % (0.0-8.0); NEUTROPHILS ABSOLUTE AUTO 3.1 K/uL (1.8-7.7); PH,VENOUS 7.39 (7.31-7.41); PLATELET COUNT,PLT 238 K/uL (150-400); RED BLOOD CELL COUNT 4.75 M/uL (4.10-5.30); WHITE BLOOD CELL COUNT,WBC 5.39 K/uL (3.9-11.3)
[2022-12-17 20:03] LABS: APPEARANCE,URINE CLEAR; BILIRUBIN,URINE NEGATIVE (NEGATIVE); COLOR,URINE YELLOW; GLUCOSE,URINE >=1000 mg/dL (NEGATIVE); KETONES,URINE NEGATIVE (NEGATIVE); LEUKOCYTE ESTERASE,URINE NEGATIVE (NEGATIVE); NITRITE,URINE NEGATIVE (NEGATIVE); OCCULT BLOOD,URINE NEGATIVE (NEGATIVE); PH,URINE 5.5 (5.0-8.0); PROTEIN,URINE NEGATIVE (NEGATIVE); UROBILINOGEN,URINE 0.2 EU/dL (<2.0)
[2022-12-17 20:16] LABS: A/G RATIO 0.9 (0.9-1.6); ALBUMIN 3.2 g/dL (3.4-5.0); BILIRUBIN TOTAL 0.3 mg/dL (0.2-1.0); CALCIUM 8.8 mg/dL (8.5-10.1); CARBON DIOXIDE,CO2 25.8 mmol/L (21.0-32.0); CREATININE 1.3 mg/dL (0.6-1.0); EST CRCL DRUG DOSING (CG) 45.7 mL/min; LACTIC ACID 3.6 mmol/L (0.4-2.0); MAGNESIUM 1.7 mg/dL (1.8-2.4); POTASSIUM,K 3.3 mmol/L (3.5-5.1); PROTEIN TOTAL,TP 6.9 g/dL (6.4-8.2)
[2022-12-17] MEDS ORDERED: 50% Dextrose in Water 50 ML Syringe IVPUSH PRN ×2 (20:31→20:46)
[2022-12-17] MEDS ORDERED: Insulin Regular, Human 100 Units/ML 10 ML Vial IVPUSH ONE (20:31)
[2022-12-17] MEDS ORDERED: Glucagon,Human Recombinant 1 MG Vial IM PRN ×2 (20:31→20:46)
[2022-12-17] MEDS ORDERED: Insulin Regular, Human 100 Units/ML 10 ML Vial SUBCUT ONE (20:46)
[2022-12-17 20:47] LABS: INR 1.05 (0.86-1.11)
[2022-12-17 22:23] LABS: HEMOGLOBIN A1C 13.4 %
[2022-12-17 22:27] LABS: LACTIC ACID 1.8 mmol/L (0.4-2.0)
[2022-12-17 22:38] VITALS: BP 140/50; PULSE 75
== END 2022-12-17 22:39 | disposition home or self-care (01) ==
LOC: MW.ED 19:23
DX: E11.65 Type 2 diabetes mellitus with hyperglycemia (principal); E86.0 Dehydration; B34.9 Viral infection, unspecified; E78.00 Pure hypercholesterolemia, unspecified; I10 Essential (primary) hypertension; I25.2 Old myocardial infarction; J44.9 Chronic obstructive pulmonary disease, unspecified; E66.9 Obesity, unspecified; K21.9 Gastro-esophageal reflux disease without esophagitis; M19.90 Unspecified osteoarthritis, unspecified site; Z86.16 Personal history of COVID-19; Z95.5 Presence of coronary angioplasty implant and graft; Z79.01 Long term (current) use of anticoagulants; Z79.82 Long term (current) use of aspirin; Z79.899 Other long term (current) drug therapy; Z79.4 Long term (current) use of insulin; Z88.1 Allergy status to other antibiotic agents; Z88.5 Allergy status to narcotic agent; Z88.8 Allergy status to other drugs, medicaments and biological substances; Z68.41 Body mass index [BMI] 40.0-44.9, adult
CPT/HCPCS: 36415; 80053; 81003; 82009; 82803; 82947; 83036; 83605; 83690; 83735; 83880; 85025; 85610; 96360; 96361; 99285; J1815; J7030; 99284

== ENCOUNTER 2022-12-25 15:31 | Emergency (ER) | payer MEDICAID, MEDICARE ==
[2022-12-25 16:03] LABS: BASOPHILS ABSOLUTE AUTO 0.03 K/uL (0.00-0.20); BASOPHILS PERCENT AUTO 0.6 % (0.0-1.0); EOSINOPHILS ABSOLUTE AUTO 0.03 K/uL (0.00-0.45); EOSINOPHILS PERCENT AUTO 0.6 % (0.0-6.0); HEMOGLOBIN 13.2 g/dL (12.0-16.0); IMMATURE GRAN ABSOLUTE AUTO 0.01 K/uL (0.00-0.05); IMMATURE GRAN PERCENT AUTO 0.2 % (0.0-0.4); LYMPHOCYTES ABSOLUTE AUTO 2.09 K/uL (1.00-4.80); LYMPHOCYTES PERCENT AUTO 39.5 % (24.0-44.0); MEAN CORPUSCULAR HEMOGLOBIN 26.9 pg (28.0-32.0); MEAN CORPUSCULAR VOLUME 81.6 fL (83.0-99.0); MONOCYTES ABSOLUTE AUTO 0.33 K/uL (0.00-0.80); MONOCYTES PERCENT AUTO 6.2 % (0.0-8.0); NEUTROPHILS PERCENT AUTO 52.9 % (41.0-71.0); PLATELET COUNT,PLT 255 K/uL (150-400); WHITE BLOOD CELL COUNT,WBC 5.29 K/uL (3.9-11.3)
[2022-12-25 16:22] LABS: A/G RATIO 0.8 (0.9-1.6); ALBUMIN 3.3 g/dL (3.4-5.0); BILIRUBIN TOTAL 0.4 mg/dL (0.2-1.0); CALCIUM 8.9 mg/dL (8.5-10.1); CARBON DIOXIDE,CO2 28.5 mmol/L (21.0-32.0); CREATININE 1.3 mg/dL (0.6-1.0); EST CRCL DRUG DOSING (CG) 45.7 mL/min; POTASSIUM,K 4.4 mmol/L (3.5-5.1); PROTEIN TOTAL,TP 7.3 g/dL (6.4-8.2); URIC ACID 6.1 mg/dL (2.6-7.2)
[2022-12-25] MEDS ORDERED: Sodium Chloride 0.9% 1,000 ML IV ONE (16:33)
[2022-12-25] MEDS ORDERED: Insulin Regular, Human 100 Units/ML 10 ML Vial IVPUSH ONE (16:41)
[2022-12-25] MEDS ORDERED: 50% Dextrose in Water 50 ML Syringe IVPUSH PRN (16:41)
[2022-12-25] MEDS ORDERED: Glucagon,Human Recombinant 1 MG Vial IM PRN (16:41)
[2022-12-25] MEDS ORDERED: Cephalexin 500 MG Cap PO ONE (16:52)
[2022-12-25 18:19] VITALS: BP 113/55; PULSE 68
== END 2022-12-25 18:19 | disposition home or self-care (01) ==
LOC: MW.ED 15:31
DX: L03.116 Cellulitis of left lower limb (principal); I10 Essential (primary) hypertension; I25.2 Old myocardial infarction; J45.909 Unspecified asthma, uncomplicated; E11.65 Type 2 diabetes mellitus with hyperglycemia; J44.9 Chronic obstructive pulmonary disease, unspecified; E66.9 Obesity, unspecified; Z88.1 Allergy status to other antibiotic agents; Z88.5 Allergy status to narcotic agent; Z88.8 Allergy status to other drugs, medicaments and biological substances; Z79.82 Long term (current) use of aspirin; Z79.899 Other long term (current) drug therapy; Z79.84 Long term (current) use of oral hypoglycemic drugs
CPT/HCPCS: 36415; 80053; 82947; 84550; 85025; 96360; 99283; A9270; J1815; J7030; 99284

== ENCOUNTER 2023-02-26 13:07 | Emergency (ER) | payer MEDICARE ==
[2023-02-26] MEDS ORDERED: Sodium Chloride 0.9% 10 ML Syringe FLUSH PRN (13:09)
[2023-02-26] MEDS ORDERED: Sodium Chloride 0.9% 2.5 ML Syringe FLUSH PRN (13:09)
[2023-02-26] MEDS ORDERED: Ondansetron 4 MG/2 ML SDV IVPUSH ONE (13:11)
[2023-02-26] MEDS ORDERED: Aspirin 81 MG Tab.Chew PO ONE (13:11)
[2023-02-26] MEDS ORDERED: Naloxone 0.4 MG/ML SDV IVPUSH PRN (13:12)
[2023-02-26] MEDS ORDERED: fentaNYL 50 MCG/ML SDV IVPUSH ONE ×2 (13:12→13:54)
[2023-02-26 13:21] LABS: BASOPHILS ABSOLUTE AUTO 0.02 K/uL (0.00-0.20); BASOPHILS PERCENT AUTO 0.4 % (0.0-1.0); EOSINOPHILS ABSOLUTE AUTO 0.02 K/uL (0.00-0.45); EOSINOPHILS PERCENT AUTO 0.4 % (0.0-6.0); HEMATOCRIT 41.1 % (37.0-47.0); HEMOGLOBIN 13.7 g/dL (12.0-16.0); IMMATURE GRAN ABSOLUTE AUTO 0.01 K/uL (0.00-0.05); IMMATURE GRAN PERCENT AUTO 0.2 % (0.0-0.4); LYMPHOCYTES ABSOLUTE AUTO 2.02 K/uL (1.00-4.80); LYMPHOCYTES PERCENT AUTO 35.4 % (24.0-44.0); MEAN CORPUSCULAR HEMOGLOBIN 26.8 pg (28.0-32.0); MEAN CORPUSCULAR HGB CONC 33.3 g/dL (32.0-36.0); MEAN CORPUSCULAR VOLUME 80.4 fL (83.0-99.0); MEAN PLATELET VOLUME 11.4 fL (9.4-12.3); MONOCYTES ABSOLUTE AUTO 0.26 K/uL (0.00-0.80); MONOCYTES PERCENT AUTO 4.6 % (0.0-8.0); NEUTROPHILS ABSOLUTE AUTO 3.37 K/uL (1.80-7.70); PLATELET COUNT,PLT 224 K/uL (150-400); RED BLOOD CELL COUNT 5.11 M/uL (4.10-5.30)
[2023-02-26] MEDS ORDERED: Heparin Sodium 5,000 Units/ML Vial IVPUSH ONE (13:28)
[2023-02-26] MEDS ORDERED: Heparin Sodium/0.45% NaCl 500 ML IV SCH (13:30)
[2023-02-26 13:35] LABS: INR 0.98 (0.86-1.11); PTT,PARTIAL THROMBOPLSTIN TIME 35.9 SEC (23.9-30.7)
[2023-02-26 13:46] LABS: A/G RATIO 0.8 (0.9-1.6); ALANINE AMINOTRANSFERASE,ALT 23 IU/L (14-63); ALBUMIN 3.1 g/dL (3.4-5.0); ALKALINE PHOSPHATASE 63 U/L (46-116); ASPARTATE AMNIOTRANSFERASE,AST 25 IU/L (15-37); BILIRUBIN TOTAL 0.4 mg/dL (0.2-1.0); BLOOD UREA NITROGEN,BUN 13 mg/dL (7.0-18.0); CALCIUM 8.7 mg/dL (8.5-10.1); CHLORIDE,CL 100 mmol/L (98-107); CREATININE 1.1 mg/dL (0.6-1.0); EST CRCL DRUG DOSING (CG) 54.01 mL/min; GLUCOSE RANDOM 337 mg/dL (74-106); MAGNESIUM 1.6 mg/dL (1.8-2.4); PROTEIN TOTAL,TP 7.1 g/dL (6.4-8.2); SODIUM,NA 134 mmol/L (136-145)
[2023-02-26 13:47] LABS: ESTIMATED GFR 62 mL/min (>60)
[2023-02-26] MEDS ORDERED: Magnesium Sulfate/Water 2 GM in Premix Bag 1 BAG IV ONE (14:08)
[2023-02-26 14:35] VITALS: BP 124/69; PULSE 81
== END 2023-02-26 16:08 ==
LOC: MW.ED 13:07
DX: I25.118 Atherosclerotic heart disease of native coronary artery with other forms of angina pectoris (principal); I47.20 Ventricular tachycardia, unspecified; E83.42 Hypomagnesemia; I10 Essential (primary) hypertension; I25.2 Old myocardial infarction; E78.00 Pure hypercholesterolemia, unspecified; K21.9 Gastro-esophageal reflux disease without esophagitis; E11.9 Type 2 diabetes mellitus without complications; E66.9 Obesity, unspecified; Z68.38 Body mass index [BMI] 38.0-38.9, adult; Z88.5 Allergy status to narcotic agent; Z88.8 Allergy status to other drugs, medicaments and biological substances; Z79.4 Long term (current) use of insulin; Z79.82 Long term (current) use of aspirin; Z79.899 Other long term (current) drug therapy; Z90.49 Acquired absence of other specified parts of digestive tract; Z90.710 Acquired absence of both cervix and uterus; Z86.16 Personal history of COVID-19
CPT/HCPCS: 36415; 71045; 80053; 83735; 84484; 85025; 85610; 85730; 93005; 96365; 96366; 96368; 96375; 96376; 99285; A9270; J0282; J1644; J2405; J3010; J3475; J3490; 93010; 99291

== ENCOUNTER 2023-04-21 15:46 | Emergency (ER) | payer MEDICARE ==
[2023-04-21 15:57] VITALS: PULSE 80
[2023-04-21 16:05] LABS: BASOPHILS ABSOLUTE AUTO 0.03 K/uL (0.00-0.20); BASOPHILS PERCENT AUTO 0.5 % (0.0-1.0); EOSINOPHILS ABSOLUTE AUTO 0.05 K/uL (0.00-0.45); EOSINOPHILS PERCENT AUTO 0.8 % (0.0-6.0); HEMATOCRIT 38.4 % (37.0-47.0); HEMOGLOBIN 12.4 g/dL (12.0-16.0); IMMATURE GRAN ABSOLUTE AUTO 0.02 K/uL (0.00-0.05); IMMATURE GRAN PERCENT AUTO 0.3 % (0.0-0.4); LYMPHOCYTES ABSOLUTE AUTO 1.96 K/uL (1.00-4.80); LYMPHOCYTES PERCENT AUTO 29.8 % (24.0-44.0); MEAN CORPUSCULAR HEMOGLOBIN 26.3 pg (28.0-32.0); MEAN CORPUSCULAR HGB CONC 32.3 g/dL (32.0-36.0); MEAN CORPUSCULAR VOLUME 81.4 fL (83.0-99.0); MEAN PLATELET VOLUME 11.5 fL (9.4-12.3); MONOCYTES ABSOLUTE AUTO 0.36 K/uL (0.00-0.80); MONOCYTES PERCENT AUTO 5.5 % (0.0-8.0); NEUTROPHILS ABSOLUTE AUTO 4.16 K/uL (1.80-7.70); NEUTROPHILS PERCENT AUTO 63.1 % (41.0-71.0); PLATELET COUNT,PLT 258 K/uL (150-400); RED BLOOD CELL COUNT 4.72 M/uL (4.10-5.30); WHITE BLOOD CELL COUNT,WBC 6.58 K/uL (3.9-11.3)
[2023-04-21 16:38] LABS: A/G RATIO 0.8 (0.9-1.6); ALBUMIN 3.1 g/dL (3.4-5.0); BILIRUBIN TOTAL 0.4 mg/dL (0.2-1.0); CALCIUM 8.7 mg/dL (8.5-10.1); CARBON DIOXIDE,CO2 26.1 mmol/L (21.0-32.0); CREATININE 1.3 mg/dL (0.6-1.0); EST CRCL DRUG DOSING (CG) 45.2 mL/min; POTASSIUM,K 3.9 mmol/L (3.5-5.1); PROTEIN TOTAL,TP 6.9 g/dL (6.4-8.2); TSH ULTRASENSITIVE 2.32 uIU/mL (0.36-3.74)
[2023-04-21 17:44] LABS: CORONAVIRUS COVID-19 NAA NEGATIVE (NEGATIVE); INFLUENZA A NAA NEGATIVE (NEGATIVE); INFLUENZA B NAA NEGATIVE (NEGATIVE)
[2023-04-21 19:24] VITALS: BP 108/81
== END 2023-04-21 18:15 | disposition home or self-care (01) ==
LOC: MW.ED 15:46
DX: R07.9 Chest pain, unspecified (principal); I10 Essential (primary) hypertension; E78.00 Pure hypercholesterolemia, unspecified; I25.2 Old myocardial infarction; J44.9 Chronic obstructive pulmonary disease, unspecified; K21.9 Gastro-esophageal reflux disease without esophagitis; E11.9 Type 2 diabetes mellitus without complications; E66.9 Obesity, unspecified; Z95.5 Presence of coronary angioplasty implant and graft; Z86.16 Personal history of COVID-19; Z90.49 Acquired absence of other specified parts of digestive tract; Z90.710 Acquired absence of both cervix and uterus; Z79.899 Other long term (current) drug therapy; Z79.82 Long term (current) use of aspirin; Z88.5 Allergy status to narcotic agent; Z88.8 Allergy status to other drugs, medicaments and biological substances; Z68.39 Body mass index [BMI] 39.0-39.9, adult
CPT/HCPCS: 0240U; 36415; 71045; 80053; 83735; 84443; 84484; 85025; 99285

== ENCOUNTER 2023-06-08 10:52 | Emergency (ER) | payer MEDICARE ==
[2023-06-08 12:06] LABS: BASOPHILS ABSOLUTE AUTO 0.03 K/uL (0.00-0.20); BASOPHILS PERCENT AUTO 0.4 % (0.0-1.0); EOSINOPHILS ABSOLUTE AUTO 0.02 K/uL (0.00-0.45); EOSINOPHILS PERCENT AUTO 0.3 % (0.0-6.0); HEMATOCRIT 41.3 % (37.0-47.0); HEMOGLOBIN 13.1 g/dL (12.0-16.0); IMMATURE GRAN ABSOLUTE AUTO 0.02 K/uL (0.00-0.05); IMMATURE GRAN PERCENT AUTO 0.3 % (0.0-0.4); LYMPHOCYTES ABSOLUTE AUTO 1.99 K/uL (1.00-4.80); LYMPHOCYTES PERCENT AUTO 28.3 % (24.0-44.0); MEAN CORPUSCULAR HEMOGLOBIN 25.6 pg (28.0-32.0); MEAN CORPUSCULAR HGB CONC 31.7 g/dL (32.0-36.0); MEAN CORPUSCULAR VOLUME 80.8 fL (83.0-99.0); MEAN PLATELET VOLUME 11.6 fL (9.4-12.3); MONOCYTES ABSOLUTE AUTO 0.38 K/uL (0.00-0.80); MONOCYTES PERCENT AUTO 5.4 % (0.0-8.0); NEUTROPHILS ABSOLUTE AUTO 4.59 K/uL (1.80-7.70); NEUTROPHILS PERCENT AUTO 65.3 % (41.0-71.0); PLATELET COUNT,PLT 245 K/uL (150-400); RED BLOOD CELL COUNT 5.11 M/uL (4.10-5.30); WHITE BLOOD CELL COUNT,WBC 7.03 K/uL (3.9-11.3)
[2023-06-08 12:44] LABS: LACTIC ACID 2.2 mmol/L (0.4-2.0)
[2023-06-08 12:47] LABS: A/G RATIO 0.8 (0.9-1.6); ALBUMIN 3.5 g/dL (3.4-5.0); BILIRUBIN TOTAL 0.5 mg/dL (0.2-1.0); CALCIUM 9.4 mg/dL (8.5-10.1); CARBON DIOXIDE,CO2 25.2 mmol/L (21.0-32.0); CREATININE 1.7 mg/dL (0.6-1.0); EST CRCL DRUG DOSING (CG) 34.57 mL/min; POTASSIUM,K 4.3 mmol/L (3.5-5.1); PROTEIN TOTAL,TP 7.8 g/dL (6.4-8.2)
[2023-06-08] MEDS ORDERED: Glucagon,Human Recombinant 1 MG Vial IM PRN (13:18)
[2023-06-08] MEDS ORDERED: 50% Dextrose in Water 50 ML Syringe IVPUSH PRN (13:18)
[2023-06-08] MEDS: Insulin Regular, Human 100 Units/ML 10 ML Vial SUBCUT ONE (13:52)
[2023-06-08] MEDS: Sodium Chloride 0.9% 1,000 ML IV ONE (14:21)
[2023-06-08 14:30] VITALS: BP 114/64; PULSE 70
== END 2023-06-08 14:29 | disposition home or self-care (01) ==
LOC: MW.ED 10:52
DX: L02.612 Cutaneous abscess of left foot (principal); I10 Essential (primary) hypertension; I25.2 Old myocardial infarction; K21.9 Gastro-esophageal reflux disease without esophagitis; E11.40 Type 2 diabetes mellitus with diabetic neuropathy, unspecified; E66.9 Obesity, unspecified; Z79.4 Long term (current) use of insulin; Z79.899 Other long term (current) drug therapy; Z79.01 Long term (current) use of anticoagulants; Z88.5 Allergy status to narcotic agent; Z88.8 Allergy status to other drugs, medicaments and biological substances
CPT/HCPCS: 36415; 73718-26-LT; 73718-LT; 80053; 82947; 83605; 85025; 99283; J1815-GY

== ENCOUNTER 2023-08-23 22:16 | Emergency (ER) | payer MEDICARE ==
[2023-08-23 22:31] VITALS: BP 127/40; PULSE 70
[2023-08-23] MEDS: Amoxicillin/Clavulanate K 875-125 MG Tab PO ONE (22:39)
[2023-08-23] MEDS: Sulfamethoxazole/Trimethoprim 800-160 MG Tab PO ONE (22:39)
== END 2023-08-23 22:44 | disposition home or self-care (01) ==
LOC: MW.ED 22:16
DX: E11.621 Type 2 diabetes mellitus with foot ulcer (principal); I10 Essential (primary) hypertension; I25.2 Old myocardial infarction; I25.10 Atherosclerotic heart disease of native coronary artery without angina pectoris; K21.9 Gastro-esophageal reflux disease without esophagitis; E78.00 Pure hypercholesterolemia, unspecified; E66.9 Obesity, unspecified; E11.9 Type 2 diabetes mellitus without complications; Z75.8 Other problems related to medical facilities and other health care; Z88.5 Allergy status to narcotic agent; Z88.8 Allergy status to other drugs, medicaments and biological substances; Z79.82 Long term (current) use of aspirin; Z79.4 Long term (current) use of insulin; Z79.899 Other long term (current) drug therapy; Z90.49 Acquired absence of other specified parts of digestive tract; Z90.710 Acquired absence of both cervix and uterus; Z68.41 Body mass index [BMI] 40.0-44.9, adult
CPT/HCPCS: 99283; A9270

== ENCOUNTER 2023-09-03 13:00 | Emergency (ER) | payer MEDICARE ==
[2023-09-03] MEDS: Sodium Chloride 0.9% 2.5 ML Syringe FLUSH PRN ×2 (13:28)
[2023-09-03] MEDS: Sodium Chloride 0.9% 10 ML Syringe FLUSH PRN ×2 (13:28)
[2023-09-03 13:29] LABS: BASOPHILS ABSOLUTE AUTO 0.02 K/uL (0.00-0.20); BASOPHILS PERCENT AUTO 0.3 % (0.0-1.0); EOSINOPHILS ABSOLUTE AUTO 0.03 K/uL (0.00-0.45); EOSINOPHILS PERCENT AUTO 0.5 % (0.0-6.0); HEMATOCRIT 40.4 % (37.0-47.0); HEMOGLOBIN 12.9 g/dL (12.0-16.0); IMMATURE GRAN ABSOLUTE AUTO 0.01 K/uL (0.00-0.05); IMMATURE GRAN PERCENT AUTO 0.2 % (0.0-0.4); LYMPHOCYTES PERCENT AUTO 34.7 % (24.0-44.0); MEAN CORPUSCULAR HEMOGLOBIN 25.4 pg (28.0-32.0); MEAN CORPUSCULAR HGB CONC 31.9 g/dL (32.0-36.0); MEAN CORPUSCULAR VOLUME 79.5 fL (83.0-99.0); MEAN PLATELET VOLUME 11.3 fL (9.4-12.3); MONOCYTES ABSOLUTE AUTO 0.34 K/uL (0.00-0.80); MONOCYTES PERCENT AUTO 5.6 % (0.0-8.0); NEUTROPHILS ABSOLUTE AUTO 3.55 K/uL (1.80-7.70); NEUTROPHILS PERCENT AUTO 58.7 % (41.0-71.0); PLATELET COUNT,PLT 229 K/uL (150-400); RED BLOOD CELL COUNT 5.08 M/uL (4.10-5.30); WHITE BLOOD CELL COUNT,WBC 6.05 K/uL (3.9-11.3)
[2023-09-03 13:42] LABS: BASE EXCESS VENOUS 2.3 (-2.0-3.0); PH,VENOUS 7.45 (7.31-7.41)
[2023-09-03 13:44] LABS: HEMOGLOBIN A1C 11.5 %
[2023-09-03 13:49] LABS: A/G RATIO 0.8 (0.9-1.6); ALBUMIN 3.2 g/dL (3.4-5.0); BILIRUBIN TOTAL 0.5 mg/dL (0.2-1.0); CALCIUM 8.7 mg/dL (8.5-10.1); CARBON DIOXIDE,CO2 27.2 mmol/L (21.0-32.0); CREATININE 1.2 mg/dL (0.6-1.0); EST CRCL DRUG DOSING (CG) 48.97 mL/min; MAGNESIUM 1.9 mg/dL (1.8-2.4); PROTEIN TOTAL,TP 7.4 g/dL (6.4-8.2)
[2023-09-03] MEDS: Famotidine 20 MG/2 ML SDV IVPUSH ONE (13:50)
[2023-09-03] MEDS: Metoclopramide 10 MG/2 ML SDV IVPUSH ONE (13:50)
[2023-09-03] MEDS: Sodium Chloride 0.9% 250 ML IV SCH (13:50)
[2023-09-03] MEDS: diphenhydrAMINE 50 MG/ML SDV IVPUSH ONE (13:50)
[2023-09-03 14:33] LABS: APPEARANCE,URINE CLEAR; BILIRUBIN,URINE NEGATIVE (NEGATIVE); COLOR,URINE YELLOW; GLUCOSE,URINE >=1000 mg/dL (NEGATIVE); KETONES,URINE NEGATIVE (NEGATIVE); LEUKOCYTE ESTERASE,URINE NEGATIVE (NEGATIVE); NITRITE,URINE NEGATIVE (NEGATIVE); OCCULT BLOOD,URINE NEGATIVE (NEGATIVE); PH,URINE 5.5 (5.0-8.0); PROTEIN,URINE NEGATIVE (NEGATIVE); UROBILINOGEN,URINE 0.2 EU/dL (<2.0)
[2023-09-03] MEDS ORDERED: Iopamidol 755 MG/ML 500 ML Multipack Bottle IVPUSH STA (15:44)
[2023-09-03 18:15] VITALS: BP 120/59
[2023-09-03 18:35] VITALS: PULSE 61
== END 2023-09-03 18:47 | disposition home or self-care (01) ==
LOC: MW.ED 13:00
DX: R07.89 Other chest pain (principal); E11.9 Type 2 diabetes mellitus without complications; I10 Essential (primary) hypertension; E78.00 Pure hypercholesterolemia, unspecified; I25.2 Old myocardial infarction; K21.9 Gastro-esophageal reflux disease without esophagitis; E11.40 Type 2 diabetes mellitus with diabetic neuropathy, unspecified; Z88.8 Allergy status to other drugs, medicaments and biological substances; Z88.5 Allergy status to narcotic agent; Z79.82 Long term (current) use of aspirin; Z79.899 Other long term (current) drug therapy; Z79.01 Long term (current) use of anticoagulants; Z79.51 Long term (current) use of inhaled steroids; Z79.85 Long-term (current) use of injectable non-insulin antidiabetic drugs; Z79.4 Long term (current) use of insulin
CPT/HCPCS: 36415; 71045; 71275; 74177; 80053; 81003; 82009; 82803; 83036; 83690; 83735; 84484; 85025; 93005; 96374; 96375; 99285; J1200; J2765; J3490; J7050; 93010; 99284

== ENCOUNTER 2023-10-16 22:05 | Emergency (ER) | payer MEDICARE ==
[2023-10-16 22:23] LABS: BASOPHILS ABSOLUTE AUTO 0.04 K/uL (0.00-0.20); BASOPHILS PERCENT AUTO 0.7 % (0.0-1.0); EOSINOPHILS ABSOLUTE AUTO 0.03 K/uL (0.00-0.45); EOSINOPHILS PERCENT AUTO 0.5 % (0.0-6.0); HEMATOCRIT 38.8 % (37.0-47.0); IMMATURE GRAN ABSOLUTE AUTO 0.01 K/uL (0.00-0.05); IMMATURE GRAN PERCENT AUTO 0.2 % (0.0-0.4); LYMPHOCYTES ABSOLUTE AUTO 2.55 K/uL (1.00-4.80); LYMPHOCYTES PERCENT AUTO 43.2 % (24.0-44.0); MEAN CORPUSCULAR HEMOGLOBIN 24.7 pg (28.0-32.0); MEAN CORPUSCULAR HGB CONC 30.9 g/dL (32.0-36.0); MEAN CORPUSCULAR VOLUME 79.8 fL (83.0-99.0); MEAN PLATELET VOLUME 10.9 fL (9.4-12.3); MONOCYTES PERCENT AUTO 6.8 % (0.0-8.0); NEUTROPHILS ABSOLUTE AUTO 2.87 K/uL (1.80-7.70); NEUTROPHILS PERCENT AUTO 48.6 % (41.0-71.0); PLATELET COUNT,PLT 255 K/uL (150-400); RED BLOOD CELL COUNT 4.86 M/uL (4.10-5.30)
[2023-10-16 22:47] LABS: A/G RATIO 0.9 (0.9-1.6); ALBUMIN 3.1 g/dL (3.4-5.0); BILIRUBIN TOTAL 0.3 mg/dL (0.2-1.0); CALCIUM 8.6 mg/dL (8.5-10.1); CARBON DIOXIDE,CO2 27.7 mmol/L (21.0-32.0); CREATININE 1.2 mg/dL (0.6-1.0); EST CRCL DRUG DOSING (CG) 48.97 mL/min; POTASSIUM,K 4.1 mmol/L (3.5-5.1); PROTEIN TOTAL,TP 6.6 g/dL (6.4-8.2)
[2023-10-16] MEDS: Famotidine 20 MG/2 ML SDV IVPUSH ONE (22:56)
[2023-10-16] MEDS: Nitroglycerin 0.4 MG Tab.SL SL PRN (22:56)
[2023-10-16 22:59] LABS: INR 1.02 (0.86-1.11); PTT,PARTIAL THROMBOPLSTIN TIME 34.6 SEC (23.9-30.7)
[2023-10-16 23:42] LABS: APPEARANCE,URINE CLEAR; BILIRUBIN,URINE NEGATIVE (NEGATIVE); COLOR,URINE YELLOW; GLUCOSE,URINE >=1000 mg/dL (NEGATIVE); KETONES,URINE NEGATIVE (NEGATIVE); LEUKOCYTE ESTERASE,URINE NEGATIVE (NEGATIVE); NITRITE,URINE NEGATIVE (NEGATIVE); OCCULT BLOOD,URINE TRACE-INTACT (NEGATIVE); PROTEIN,URINE NEGATIVE (NEGATIVE); UROBILINOGEN,URINE 0.2 EU/dL (<2.0)
[2023-10-16 23:52] LABS: BACTERIA,URINE FEW (NEGATIVE); EPITHELIAL CELLS,URINE FEW (NONE-FEW); RBC,URINE 0-5 (0-2/HPF); WBC,URINE 0-1 (0-5/HPF); YEAST,URINE RARE
[2023-10-17 01:19] VITALS: BP 108/62; PULSE 64
== END 2023-10-17 01:33 | disposition home or self-care (01) ==
LOC: MW.ED 22:05
DX: R07.9 Chest pain, unspecified (principal); I10 Essential (primary) hypertension; I25.2 Old myocardial infarction; E78.00 Pure hypercholesterolemia, unspecified; K21.9 Gastro-esophageal reflux disease without esophagitis; E11.40 Type 2 diabetes mellitus with diabetic neuropathy, unspecified; E66.9 Obesity, unspecified; Z90.49 Acquired absence of other specified parts of digestive tract; Z90.710 Acquired absence of both cervix and uterus; Z79.899 Other long term (current) drug therapy; Z79.4 Long term (current) use of insulin; Z79.51 Long term (current) use of inhaled steroids; Z79.82 Long term (current) use of aspirin; Z79.01 Long term (current) use of anticoagulants; Z88.8 Allergy status to other drugs, medicaments and biological substances; Z88.6 Allergy status to analgesic agent; Z95.5 Presence of coronary angioplasty implant and graft; Z68.41 Body mass index [BMI] 40.0-44.9, adult
CPT/HCPCS: 36415; 71045; 80053; 81001; 83690; 84484; 84703; 85025; 85610; 85730; 93005; 96374; 99285; A9270; J3490; 93010

== ENCOUNTER 2023-11-10 23:30 | Emergency (ER) | payer MEDICARE ==
[2023-11-11 00:15] VITALS: BP 132/53; PULSE 70
== END 2023-11-11 00:13 | disposition home or self-care (01) ==
LOC: MW.ED 23:30
DX: S60.312A Abrasion of left thumb, initial encounter (principal); X58.XXXA Exposure to other specified factors, initial encounter
CPT/HCPCS: 99282

== ENCOUNTER 2023-12-04 02:28 | Emergency (ER) | payer MEDICARE ==
[2023-12-04 02:44] LABS: BASOPHILS ABSOLUTE AUTO 0.03 K/uL (0.00-0.20); BASOPHILS PERCENT AUTO 0.5 % (0.0-1.0); EOSINOPHILS ABSOLUTE AUTO 0.04 K/uL (0.00-0.45); EOSINOPHILS PERCENT AUTO 0.6 % (0.0-6.0); HEMATOCRIT 41.9 % (37.0-47.0); HEMOGLOBIN 12.9 g/dL (12.0-16.0); IMMATURE GRAN ABSOLUTE AUTO 0.03 K/uL (0.00-0.05); IMMATURE GRAN PERCENT AUTO 0.5 % (0.0-0.4); LYMPHOCYTES ABSOLUTE AUTO 3.02 K/uL (1.00-4.80); MEAN CORPUSCULAR HEMOGLOBIN 24.5 pg (28.0-32.0); MEAN CORPUSCULAR HGB CONC 30.8 g/dL (32.0-36.0); MEAN CORPUSCULAR VOLUME 79.5 fL (83.0-99.0); MONOCYTES ABSOLUTE AUTO 0.53 K/uL (0.00-0.80); MONOCYTES PERCENT AUTO 8.1 % (0.0-8.0); NEUTROPHILS ABSOLUTE AUTO 2.92 K/uL (1.80-7.70); NEUTROPHILS PERCENT AUTO 44.3 % (41.0-71.0); PLATELET COUNT,PLT 268 K/uL (150-400); RED BLOOD CELL COUNT 5.27 M/uL (4.10-5.30); WHITE BLOOD CELL COUNT,WBC 6.57 K/uL (3.9-11.3)
[2023-12-04] MEDS: Sodium Chloride 0.9% 10 ML Syringe FLUSH PRN (02:51)
[2023-12-04] MEDS: Pantoprazole 40 MG in Sodium Chloride 0.9% 10 ML IVPUSH ONE (02:51)
[2023-12-04] MEDS: Aspirin 81 MG Tab.Chew PO ONE (03:05)
[2023-12-04] MEDS: Nitroglycerin 0.4 MG Tab.SL SL PRN (03:07)
[2023-12-04 03:08] LABS: HEMOGLOBIN A1C 10.7 %
[2023-12-04 03:17] LABS: A/G RATIO 0.9 (0.9-1.6); ALBUMIN 3.5 g/dL (3.4-5.0); BILIRUBIN TOTAL 0.3 mg/dL (0.2-1.0); CALCIUM 9.4 mg/dL (8.5-10.1); EST CRCL DRUG DOSING (CG) 58.76 mL/min; POTASSIUM,K 3.6 mmol/L (3.5-5.1); PROTEIN TOTAL,TP 7.4 g/dL (6.4-8.2)
[2023-12-04 03:21] LABS: D-DIMER QUANTITATIVE < 0.19 mg/L FEU (0.00-0.50)
[2023-12-04] MEDS: droPERidol 1.25 MG in Sodium Chloride 0.9% 50 ML IV ONE (03:27)
[2023-12-04] MEDS: droPERidol 5 MG/2 ML SDV IVPUSH ONE (03:30)
[2023-12-04] MEDS: droPERidol 5 MG/2 ML SDV ONE (03:31)
[2023-12-04] MEDS: Iopamidol 755 MG/ML 500 ML Multipack Bottle IVPUSH ONE (04:31)
[2023-12-04 05:02] LABS: APPEARANCE,URINE CLEAR; BILIRUBIN,URINE NEGATIVE (NEGATIVE); COLOR,URINE YELLOW; GLUCOSE,URINE >=1000 mg/dL (NEGATIVE); KETONES,URINE NEGATIVE (NEGATIVE); LEUKOCYTE ESTERASE,URINE NEGATIVE (NEGATIVE); NITRITE,URINE NEGATIVE (NEGATIVE); OCCULT BLOOD,URINE NEGATIVE (NEGATIVE); PH,URINE 5.5 (5.0-8.0); PROTEIN,URINE NEGATIVE (NEGATIVE); UROBILINOGEN,URINE 0.2 EU/dL (<2.0)
[2023-12-04 05:57] VITALS: BP 110/56; PULSE 60
== END 2023-12-04 05:56 | disposition home or self-care (01) ==
LOC: MW.ED 02:28
DX: R07.9 Chest pain, unspecified (principal); R10.31 Right lower quadrant pain; J44.9 Chronic obstructive pulmonary disease, unspecified; E11.21 Type 2 diabetes mellitus with diabetic nephropathy; Z90.49 Acquired absence of other specified parts of digestive tract; Z90.710 Acquired absence of both cervix and uterus; K21.9 Gastro-esophageal reflux disease without esophagitis; E66.9 Obesity, unspecified; Z79.82 Long term (current) use of aspirin; Z79.4 Long term (current) use of insulin; Z79.899 Other long term (current) drug therapy; Z79.2 Long term (current) use of antibiotics; Z88.5 Allergy status to narcotic agent; Z88.1 Allergy status to other antibiotic agents; Z88.8 Allergy status to other drugs, medicaments and biological substances
CPT/HCPCS: 36415; 71045; 74177; 80053; 81003; 83036; 83690; 83880; 84484; 84703; 85025; 85379; 85610; 93005; 96374; 96375; 99285; A9270; J1790; J2470; J3490; Q9967; 93010

== ENCOUNTER 2024-01-01 22:03 | Emergency (ER) | payer MEDICARE ==
[2024-01-01] MEDS ORDERED: Sodium Chloride 0.9% 10 ML Syringe FLUSH PRN (22:20)
[2024-01-01] MEDS ORDERED: Sodium Chloride 0.9% 2.5 ML Syringe FLUSH PRN (22:20)
[2024-01-01 22:31] LABS: BASOPHILS ABSOLUTE AUTO 0.04 K/uL (0.00-0.20); BASOPHILS PERCENT AUTO 0.6 % (0.0-1.0); EOSINOPHILS ABSOLUTE AUTO 0.04 K/uL (0.00-0.45); EOSINOPHILS PERCENT AUTO 0.6 % (0.0-6.0); HEMATOCRIT 40.8 % (37.0-47.0); IMMATURE GRAN ABSOLUTE AUTO 0.03 K/uL (0.00-0.05); IMMATURE GRAN PERCENT AUTO 0.4 % (0.0-0.4); LYMPHOCYTES ABSOLUTE AUTO 3.17 K/uL (1.00-4.80); LYMPHOCYTES PERCENT AUTO 44.4 % (24.0-44.0); MEAN CORPUSCULAR HEMOGLOBIN 25.1 pg (28.0-32.0); MEAN CORPUSCULAR HGB CONC 31.9 g/dL (32.0-36.0); MEAN CORPUSCULAR VOLUME 78.9 fL (83.0-99.0); MEAN PLATELET VOLUME 11.5 fL (9.4-12.3); MONOCYTES ABSOLUTE AUTO 0.39 K/uL (0.00-0.80); MONOCYTES PERCENT AUTO 5.5 % (0.0-8.0); NEUTROPHILS ABSOLUTE AUTO 3.47 K/uL (1.80-7.70); NEUTROPHILS PERCENT AUTO 48.5 % (41.0-71.0); PLATELET COUNT,PLT 191 K/uL (150-400); RED BLOOD CELL COUNT 5.17 M/uL (4.10-5.30); WHITE BLOOD CELL COUNT,WBC 7.14 K/uL (3.9-11.3)
[2024-01-01 22:42] LABS: APPEARANCE,URINE CLEAR; BILIRUBIN,URINE NEGATIVE (NEGATIVE); COLOR,URINE YELLOW; GLUCOSE,URINE >=1000 mg/dL (NEGATIVE); KETONES,URINE NEGATIVE (NEGATIVE); LEUKOCYTE ESTERASE,URINE NEGATIVE (NEGATIVE); NITRITE,URINE NEGATIVE (NEGATIVE); OCCULT BLOOD,URINE NEGATIVE (NEGATIVE); PH,URINE 5.5 (5.0-8.0); PROTEIN,URINE NEGATIVE (NEGATIVE); UROBILINOGEN,URINE 0.2 EU/dL (<2.0)
[2024-01-01 22:48] LABS: A/G RATIO 0.9 (0.9-1.6); ALBUMIN 3.5 g/dL (3.4-5.0); BILIRUBIN TOTAL 0.2 mg/dL (0.2-1.0); CARBON DIOXIDE,CO2 24.3 mmol/L (21.0-32.0); CREATININE 1.3 mg/dL (0.6-1.0); EST CRCL DRUG DOSING (CG) 45.2 mL/min; POTASSIUM,K 3.7 mmol/L (3.5-5.1); PROTEIN TOTAL,TP 7.3 g/dL (6.4-8.2)
[2024-01-01] MEDS ORDERED: 50% Dextrose in Water 50 ML Syringe IVPUSH PRN (23:07)
[2024-01-01] MEDS ORDERED: Glucagon,Human Recombinant 1 MG Vial IM PRN (23:07)
[2024-01-01] MEDS: Insulin Aspart 100 Units/ML 3 ML Pen SUBCUT ONE (23:37)
[2024-01-01] MEDS: Insulin Glargine,Hum.Rec.Anlog 100 UNIT/ML 3 ML Pen SUBCUT ONE (23:48)
[2024-01-02 02:16] VITALS: BP 110/45; PULSE 85
[2024-01-02] MEDS ORDERED: Insulin Glargine,Hum.Rec.Anlog 100 UNIT/ML 3 ML Pen SUBCUT ONE (23:07)
== END 2024-01-02 02:16 | disposition home or self-care (01) ==
LOC: MW.ED 22:03
DX: R00.2 Palpitations (principal); E11.65 Type 2 diabetes mellitus with hyperglycemia; E78.00 Pure hypercholesterolemia, unspecified; I10 Essential (primary) hypertension; I25.2 Old myocardial infarction; E66.9 Obesity, unspecified; Z68.41 Body mass index [BMI] 40.0-44.9, adult; Z90.710 Acquired absence of both cervix and uterus; Z79.82 Long term (current) use of aspirin; Z79.4 Long term (current) use of insulin; Z79.899 Other long term (current) drug therapy; Z88.1 Allergy status to other antibiotic agents; Z88.5 Allergy status to narcotic agent; Z88.8 Allergy status to other drugs, medicaments and biological substances
CPT/HCPCS: 36415; 71046; 80053; 81003; 82947; 83690; 83880; 84484; 84703; 85025; 87651; 93005; 99285; A9270; J1815; U0002

== ENCOUNTER 2024-02-11 20:43 | Emergency (ER) | payer MEDICARE ==
[2024-02-11 21:02] LABS: BASOPHILS ABSOLUTE AUTO 0.04 K/uL (0.00-0.20); BASOPHILS PERCENT AUTO 0.6 % (0.0-1.0); EOSINOPHILS ABSOLUTE AUTO 0.11 K/uL (0.00-0.45); EOSINOPHILS PERCENT AUTO 1.7 % (0.0-6.0); HEMATOCRIT 38.4 % (37.0-47.0); HEMOGLOBIN 12.1 g/dL (12.0-16.0); IMMATURE GRAN ABSOLUTE AUTO 0.03 K/uL (0.00-0.05); IMMATURE GRAN PERCENT AUTO 0.5 % (0.0-0.4); LYMPHOCYTES ABSOLUTE AUTO 2.44 K/uL (1.00-4.80); LYMPHOCYTES PERCENT AUTO 36.8 % (24.0-44.0); MEAN CORPUSCULAR HEMOGLOBIN 25.3 pg (28.0-32.0); MEAN CORPUSCULAR HGB CONC 31.5 g/dL (32.0-36.0); MEAN CORPUSCULAR VOLUME 80.3 fL (83.0-99.0); MEAN PLATELET VOLUME 10.6 fL (9.4-12.3); NEUTROPHILS ABSOLUTE AUTO 3.61 K/uL (1.80-7.70); NEUTROPHILS PERCENT AUTO 54.4 % (41.0-71.0); PLATELET COUNT,PLT 303 K/uL (150-400); RED BLOOD CELL COUNT 4.78 M/uL (4.10-5.30); WHITE BLOOD CELL COUNT,WBC 6.63 K/uL (3.9-11.3)
[2024-02-11 21:24] LABS: INR 1.02 (0.86-1.11); PTT,PARTIAL THROMBOPLSTIN TIME 37.9 SEC (23.9-30.7)
[2024-02-11 21:32] LABS: A/G RATIO 0.8 (0.9-1.6); ALANINE AMINOTRANSFERASE,ALT 32 IU/L (14-63); ALKALINE PHOSPHATASE 69 U/L (46-116); ASPARTATE AMNIOTRANSFERASE,AST 21 IU/L (15-37); BILIRUBIN TOTAL 0.2 mg/dL (0.2-1.0); BLOOD UREA NITROGEN,BUN 22 mg/dL (7.0-18.0); CALCIUM 8.9 mg/dL (8.5-10.1); CARBON DIOXIDE,CO2 28.2 mmol/L (21.0-32.0); CHLORIDE,CL 103 mmol/L (98-107); CREATININE 1.3 mg/dL (0.6-1.0); GLUCOSE RANDOM 190 mg/dL (74-106); POTASSIUM,K 3.8 mmol/L (3.5-5.1); SODIUM,NA 139 mmol/L (136-145)
[2024-02-11 21:37] LABS: ESTIMATED GFR 50 mL/min (>60)
[2024-02-11] MEDS: cefTRIAXone 2 GM in Sodium Chloride 0.9% 50 ML IV ONE (22:12)
[2024-02-11] MEDS: Azithromycin 500 MG in Sodium Chloride 0.9% 250 ML IV ONE (22:12)
[2024-02-11 23:07] VITALS: BP 135/62; PULSE 83
== END 2024-02-11 23:25 | disposition home or self-care (01) ==
LOC: MW.ED 20:43
DX: J18.9 Pneumonia, unspecified organism (principal); M54.50 Low back pain, unspecified; M54.6 Pain in thoracic spine; I25.10 Atherosclerotic heart disease of native coronary artery without angina pectoris; I25.2 Old myocardial infarction; I10 Essential (primary) hypertension; E78.00 Pure hypercholesterolemia, unspecified; M19.90 Unspecified osteoarthritis, unspecified site; E11.42 Type 2 diabetes mellitus with diabetic polyneuropathy; E66.9 Obesity, unspecified; Z95.5 Presence of coronary angioplasty implant and graft; Z90.49 Acquired absence of other specified parts of digestive tract; Z90.710 Acquired absence of both cervix and uterus; Z88.1 Allergy status to other antibiotic agents; Z88.6 Allergy status to analgesic agent; Z88.8 Allergy status to other drugs, medicaments and biological substances; Z79.01 Long term (current) use of anticoagulants; Z79.82 Long term (current) use of aspirin; Z79.51 Long term (current) use of inhaled steroids; Z79.4 Long term (current) use of insulin; Z79.899 Other long term (current) drug therapy; W01.198A Fall on same level from slipping, tripping and stumbling with subsequent striking against other object, initial encounter
CPT/HCPCS: 36415; 70450; 71250; 72125; 72128; 72131; 74176; 80053; 85025; 85610; 85730; 86850; 86900; 86901; 93005; 96365; 99284; J0696; J3490; 93010; 99285; J0456; J7050

== ENCOUNTER 2024-09-09 14:38 | Emergency (ER) | payer MEDICARE ==
[2024-09-09 15:22] LABS: BASOPHILS ABSOLUTE AUTO 0.03 K/uL (0.00-0.20); BASOPHILS PERCENT AUTO 0.3 % (0.0-1.0); EOSINOPHILS ABSOLUTE AUTO 0.04 K/uL (0.00-0.45); EOSINOPHILS PERCENT AUTO 0.5 % (0.0-6.0); HEMATOCRIT 40.3 % (37.0-47.0); HEMOGLOBIN 12.5 g/dL (12.0-16.0); IMMATURE GRAN ABSOLUTE AUTO 0.02 K/uL (0.00-0.05); IMMATURE GRAN PERCENT AUTO 0.2 % (0.0-0.4); LYMPHOCYTES ABSOLUTE AUTO 2.26 K/uL (1.00-4.80); LYMPHOCYTES PERCENT AUTO 25.9 % (24.0-44.0); MEAN CORPUSCULAR HEMOGLOBIN 24.1 pg (28.0-32.0); MEAN CORPUSCULAR VOLUME 77.8 fL (83.0-99.0); MEAN PLATELET VOLUME 10.7 fL (9.4-12.3); MONOCYTES ABSOLUTE AUTO 0.49 K/uL (0.00-0.80); MONOCYTES PERCENT AUTO 5.6 % (0.0-8.0); NEUTROPHILS ABSOLUTE AUTO 5.89 K/uL (1.80-7.70); NEUTROPHILS PERCENT AUTO 67.5 % (41.0-71.0); PLATELET COUNT,PLT 244 K/uL (150-400); RED BLOOD CELL COUNT 5.18 M/uL (4.10-5.30); WHITE BLOOD CELL COUNT,WBC 8.73 K/uL (3.9-11.3)
[2024-09-09] MEDS: Sodium Chloride 0.9% 1,000 ML IV ONE (15:23)
[2024-09-09] MEDS: Albuterol/Ipratropium 3.0-0.5 MG/3 ML Neb Soln NEB ONE (15:25)
[2024-09-09 15:56] LABS: A/G RATIO 0.8 (0.9-1.6); ALANINE AMINOTRANSFERASE,ALT 44 IU/L (14-63); ALBUMIN 3.1 g/dL (3.4-5.0); ALKALINE PHOSPHATASE 80 U/L (46-116); ASPARTATE AMNIOTRANSFERASE,AST 21 IU/L (15-37); BILIRUBIN TOTAL 0.3 mg/dL (0.2-1.0); BLOOD UREA NITROGEN,BUN 17 mg/dL (7.0-18.0); CALCIUM 8.8 mg/dL (8.5-10.1); CARBON DIOXIDE,CO2 26.4 mmol/L (21.0-32.0); CHLORIDE,CL 103 mmol/L (98-107); GLUCOSE RANDOM 231 mg/dL (74-106); LIPASE 62 U/L (16-77); MAGNESIUM 1.8 mg/dL (1.8-2.4); POTASSIUM,K 4.1 mmol/L (3.5-5.1); SODIUM,NA 139 mmol/L (136-145)
[2024-09-09 15:59] LABS: ESTIMATED GFR 69 mL/min (>60)
[2024-09-09 17:16] VITALS: BP 132/81; PULSE 84
== END 2024-09-09 17:12 | disposition home or self-care (01) ==
LOC: MW.ED 14:38
DX: L03.116 Cellulitis of left lower limb (principal); E86.0 Dehydration; I10 Essential (primary) hypertension; E78.00 Pure hypercholesterolemia, unspecified; I25.2 Old myocardial infarction; K21.9 Gastro-esophageal reflux disease without esophagitis; M19.90 Unspecified osteoarthritis, unspecified site; E11.42 Type 2 diabetes mellitus with diabetic polyneuropathy; Z86.16 Personal history of COVID-19; Z90.49 Acquired absence of other specified parts of digestive tract; Z90.710 Acquired absence of both cervix and uterus; Z88.5 Allergy status to narcotic agent; Z88.8 Allergy status to other drugs, medicaments and biological substances; Z79.01 Long term (current) use of anticoagulants; Z79.82 Long term (current) use of aspirin; Z79.51 Long term (current) use of inhaled steroids; Z79.4 Long term (current) use of insulin; Z79.899 Other long term (current) drug therapy; Z75.3 Unavailability and inaccessibility of health-care facilities
CPT/HCPCS: 36415; 71046; 73630; 80053; 82947; 83690; 83735; 85025; 93971; 96360; 99285; A9270; J7030; 99283

== ENCOUNTER 2024-11-03 14:38 | Inpatient (IN) | payer MEDICARE ==
[2024-11-03] MEDS ORDERED: Sodium Chloride 0.9% 2.5 ML Syringe FLUSH PRN (16:23)
[2024-11-03] MEDS ORDERED: Sodium Chloride 0.9% 10 ML Syringe FLUSH PRN (16:23)
[2024-11-03] MEDS: fentaNYL 50 MCG/ML SDV IVPUSH ONE ×2 (17:50→20:54)
[2024-11-03 17:58] LABS: BASOPHILS ABSOLUTE AUTO 0.03 K/uL (0.00-0.20); BASOPHILS PERCENT AUTO 0.2 % (0.0-1.0); EOSINOPHILS ABSOLUTE AUTO 0.00 K/uL (0.00-0.45); EOSINOPHILS PERCENT AUTO 0.0 % (0.0-6.0); IMMATURE GRAN ABSOLUTE AUTO 0.05 K/uL (0.00-0.05); IMMATURE GRAN PERCENT AUTO 0.4 % (0.0-0.4); LYMPHOCYTES ABSOLUTE AUTO 1.28 K/uL (1.00-4.80); LYMPHOCYTES PERCENT AUTO 9.5 % (24.0-44.0); MEAN PLATELET VOLUME 10.4 fL (9.4-12.3); MONOCYTES ABSOLUTE AUTO 1.03 K/uL (0.00-0.80); MONOCYTES PERCENT AUTO 7.6 % (0.0-8.0); NEUTROPHILS ABSOLUTE AUTO 11.15 K/uL (1.80-7.70); NEUTROPHILS PERCENT AUTO 82.3 % (41.0-71.0); NRBC ABSOLUTE 0.00 K/uL (0.00-0.02); NRBC PERCENT 0.0 /100WBC (0.0-0.2); PLATELET COUNT,PLT 315 K/uL (150-400); RED BLOOD CELL COUNT 5.07 M/uL (4.10-5.30); WHITE BLOOD CELL COUNT,WBC 13.54 K/uL (3.9-11.3)
[2024-11-03 18:20] LABS: A/G RATIO 0.7 (0.9-1.6); ALANINE AMINOTRANSFERASE,ALT 33.0 IU/L (14-63); ASPARTATE AMNIOTRANSFERASE,AST 15.0 IU/L (15-37); BILIRUBIN TOTAL 0.5 mg/dL (0.2-1.0); BLOOD UREA NITROGEN,BUN 19.0 mg/dL (7.0-18.0); CARBON DIOXIDE,CO2 28.8 mmol/L (21.0-32.0); CHLORIDE,CL 98.0 mmol/L (98-107); CREATININE 1.4 mg/dL (0.6-1.0); EST CRCL DRUG DOSING (CG) 41.51 mL/min; GLUCOSE RANDOM 360.0 mg/dL (74-106); POTASSIUM,K 4.2 mmol/L (3.5-5.1); PROTEIN TOTAL,TP 7.7 g/dL (6.4-8.2); SODIUM,NA 136.0 mmol/L (136-145)
[2024-11-03 18:21] LABS: ESTIMATED GFR 46.0 mL/min (>60)
[2024-11-03 18:49] LABS: LACTIC ACID 1.4 mmol/L (0.4-2.0)
[2024-11-03] MEDS: VANCOmycin 1.75 GM/350 ML 1.75 GM in Premix Bag 1 BAG IV ONE (20:55)
[2024-11-03] MEDS ORDERED: 50% Dextrose in Water 50 ML Syringe IVPUSH PRN (23:33)
[2024-11-03] MEDS: Acetaminophen/HYDROcodone 325-10 MG Tab PO PRN (23:56)
[2024-11-04 05:55] LABS: MEAN PLATELET VOLUME 10.4 fL (9.4-12.3); NRBC ABSOLUTE 0.00 K/uL (0.00-0.02); NRBC PERCENT 0.0 /100WBC (0.0-0.2); PLATELET COUNT,PLT 261 K/uL (150-400); RED BLOOD CELL COUNT 4.51 M/uL (4.10-5.30); WHITE BLOOD CELL COUNT,WBC 9.49 K/uL (3.9-11.3)
[2024-11-04 06:20] LABS: BLOOD UREA NITROGEN,BUN 16.0 mg/dL (7.0-18.0); CARBON DIOXIDE,CO2 24.9 mmol/L (21.0-32.0); CHLORIDE,CL 103.0 mmol/L (98-107); CREATININE 1.1 mg/dL (0.6-1.0); EST CRCL DRUG DOSING (CG) 52.84 mL/min; GLUCOSE RANDOM 193.0 mg/dL (74-106); POTASSIUM,K 3.8 mmol/L (3.5-5.1); SODIUM,NA 138.0 mmol/L (136-145)
[2024-11-04 06:26] LABS: ESTIMATED GFR 61.0 mL/min (>60)
[2024-11-04] MEDS ORDERED: 50% Dextrose in Water 50 ML Syringe IVPUSH PRN (18:56)
[2024-11-04] MEDS: Insulin Glargine,Human Rec. Analog 100 Units/ML 3 ML Pen SUBCUT SCH (21:22)
[2024-11-05 07:17] LABS: BASOPHILS ABSOLUTE AUTO 0.02 K/uL (0.00-0.20); BASOPHILS PERCENT AUTO 0.2 % (0.0-1.0); EOSINOPHILS ABSOLUTE AUTO 0.05 K/uL (0.00-0.45); EOSINOPHILS PERCENT AUTO 0.6 % (0.0-6.0); IMMATURE GRAN ABSOLUTE AUTO 0.03 K/uL (0.00-0.05); IMMATURE GRAN PERCENT AUTO 0.4 % (0.0-0.4); LYMPHOCYTES ABSOLUTE AUTO 1.78 K/uL (1.00-4.80); LYMPHOCYTES PERCENT AUTO 21.1 % (24.0-44.0); MEAN PLATELET VOLUME 10.7 fL (9.4-12.3); MONOCYTES ABSOLUTE AUTO 0.98 K/uL (0.00-0.80); MONOCYTES PERCENT AUTO 11.6 % (0.0-8.0); NEUTROPHILS ABSOLUTE AUTO 5.57 K/uL (1.80-7.70); NEUTROPHILS PERCENT AUTO 66.1 % (41.0-71.0); NRBC ABSOLUTE 0.00 K/uL (0.00-0.02); NRBC PERCENT 0.0 /100WBC (0.0-0.2); PLATELET COUNT,PLT 252 K/uL (150-400); RED BLOOD CELL COUNT 4.09 M/uL (4.10-5.30); WHITE BLOOD CELL COUNT,WBC 8.43 K/uL (3.9-11.3)
[2024-11-05 07:43] LABS: A/G RATIO 0.5 (0.9-1.6); ALANINE AMINOTRANSFERASE,ALT 21.0 IU/L (14-63); ASPARTATE AMNIOTRANSFERASE,AST 15.0 IU/L (15-37); BILIRUBIN TOTAL 0.4 mg/dL (0.2-1.0); BLOOD UREA NITROGEN,BUN 12.0 mg/dL (7.0-18.0); CARBON DIOXIDE,CO2 25.2 mmol/L (21.0-32.0); CHLORIDE,CL 103.0 mmol/L (98-107); CREATININE 0.8 mg/dL (0.6-1.0); EST CRCL DRUG DOSING (CG) 72.65 mL/min; GLUCOSE RANDOM 109.0 mg/dL (74-106); POTASSIUM,K 3.5 mmol/L (3.5-5.1); PROTEIN TOTAL,TP 6.4 g/dL (6.4-8.2); SODIUM,NA 139.0 mmol/L (136-145)
[2024-11-05 07:45] LABS: ESTIMATED GFR 90.0 mL/min (>60)
[2024-11-05] MEDS: Gadoteridol 279.3 MG/ML 20 ML SDV IVPUSH ONE (12:09)
[2024-11-05] MEDS: Acetaminophen/HYDROcodone 325-10 MG Tab PO PRN (21:28)
[2024-11-06 07:50] LABS: BASOPHILS ABSOLUTE AUTO 0.03 K/uL (0.00-0.20); BASOPHILS PERCENT AUTO 0.4 % (0.0-1.0); EOSINOPHILS ABSOLUTE AUTO 0.13 K/uL (0.00-0.45); EOSINOPHILS PERCENT AUTO 1.5 % (0.0-6.0); IMMATURE GRAN ABSOLUTE AUTO 0.03 K/uL (0.00-0.05); IMMATURE GRAN PERCENT AUTO 0.4 % (0.0-0.4); LYMPHOCYTES ABSOLUTE AUTO 1.71 K/uL (1.00-4.80); LYMPHOCYTES PERCENT AUTO 20.0 % (24.0-44.0); MEAN PLATELET VOLUME 10.4 fL (9.4-12.3); MONOCYTES ABSOLUTE AUTO 0.93 K/uL (0.00-0.80); MONOCYTES PERCENT AUTO 10.9 % (0.0-8.0); NEUTROPHILS ABSOLUTE AUTO 5.70 K/uL (1.80-7.70); NEUTROPHILS PERCENT AUTO 66.8 % (41.0-71.0); NRBC ABSOLUTE 0.00 K/uL (0.00-0.02); NRBC PERCENT 0.0 /100WBC (0.0-0.2); PLATELET COUNT,PLT 288 K/uL (150-400); RED BLOOD CELL COUNT 4.27 M/uL (4.10-5.30); WHITE BLOOD CELL COUNT,WBC 8.53 K/uL (3.9-11.3)
[2024-11-06 08:15] LABS: A/G RATIO 0.5 (0.9-1.6); ALANINE AMINOTRANSFERASE,ALT 23.0 IU/L (14-63); ASPARTATE AMNIOTRANSFERASE,AST 19.0 IU/L (15-37); BILIRUBIN TOTAL 0.3 mg/dL (0.2-1.0); BLOOD UREA NITROGEN,BUN 11.0 mg/dL (7.0-18.0); CARBON DIOXIDE,CO2 28.1 mmol/L (21.0-32.0); CHLORIDE,CL 103.0 mmol/L (98-107); CREATININE 0.8 mg/dL (0.6-1.0); EST CRCL DRUG DOSING (CG) 72.65 mL/min; GLUCOSE RANDOM 111.0 mg/dL (74-106); POTASSIUM,K 3.6 mmol/L (3.5-5.1); PROTEIN TOTAL,TP 6.7 g/dL (6.4-8.2); SODIUM,NA 139.0 mmol/L (136-145)
[2024-11-06 08:17] LABS: ESTIMATED GFR 90.0 mL/min (>60)
[2024-11-07 07:32] LABS: BASOPHILS ABSOLUTE AUTO 0.03 K/uL (0.00-0.20); BASOPHILS PERCENT AUTO 0.5 % (0.0-1.0); EOSINOPHILS ABSOLUTE AUTO 0.10 K/uL (0.00-0.45); EOSINOPHILS PERCENT AUTO 1.7 % (0.0-6.0); IMMATURE GRAN ABSOLUTE AUTO 0.02 K/uL (0.00-0.05); IMMATURE GRAN PERCENT AUTO 0.3 % (0.0-0.4); LYMPHOCYTES ABSOLUTE AUTO 1.24 K/uL (1.00-4.80); LYMPHOCYTES PERCENT AUTO 21.5 % (24.0-44.0); MEAN PLATELET VOLUME 10.5 fL (9.4-12.3); MONOCYTES ABSOLUTE AUTO 0.60 K/uL (0.00-0.80); MONOCYTES PERCENT AUTO 10.4 % (0.0-8.0); NEUTROPHILS ABSOLUTE AUTO 3.79 K/uL (1.80-7.70); NEUTROPHILS PERCENT AUTO 65.6 % (41.0-71.0); NRBC ABSOLUTE 0.00 K/uL (0.00-0.02); NRBC PERCENT 0.0 /100WBC (0.0-0.2); PLATELET COUNT,PLT 263 K/uL (150-400); RED BLOOD CELL COUNT 4.16 M/uL (4.10-5.30); WHITE BLOOD CELL COUNT,WBC 5.78 K/uL (3.9-11.3)
[2024-11-07 07:56] LABS: A/G RATIO 0.5 (0.9-1.6); ALANINE AMINOTRANSFERASE,ALT 26.0 IU/L (14-63); ASPARTATE AMNIOTRANSFERASE,AST 27.0 IU/L (15-37); BILIRUBIN TOTAL 0.3 mg/dL (0.2-1.0); BLOOD UREA NITROGEN,BUN 9.0 mg/dL (7.0-18.0); CARBON DIOXIDE,CO2 31.3 mmol/L (21.0-32.0); CHLORIDE,CL 105.0 mmol/L (98-107); CREATININE 0.8 mg/dL (0.6-1.0); EST CRCL DRUG DOSING (CG) 72.65 mL/min; GLUCOSE RANDOM 107.0 mg/dL (74-106); POTASSIUM,K 3.4 mmol/L (3.5-5.1); PROTEIN TOTAL,TP 6.4 g/dL (6.4-8.2); SODIUM,NA 143.0 mmol/L (136-145); VANCOMYCIN RANDOM 15.2 ug/mL
[2024-11-07 08:01] LABS: ESTIMATED GFR 90.0 mL/min (>60)
[2024-11-07] MEDS: Metoprolol Succinate 100 MG Tab.ER PO SCH (09:45)
[2024-11-07] MEDS: POTASSIUM CL 10 MEQ PO SCH (09:53)
[2024-11-08 07:07] LABS: BASOPHILS ABSOLUTE AUTO 0.03 K/uL (0.00-0.20); BASOPHILS PERCENT AUTO 0.6 % (0.0-1.0); EOSINOPHILS ABSOLUTE AUTO 0.11 K/uL (0.00-0.45); EOSINOPHILS PERCENT AUTO 2.2 % (0.0-6.0); IMMATURE GRAN ABSOLUTE AUTO 0.02 K/uL (0.00-0.05); IMMATURE GRAN PERCENT AUTO 0.4 % (0.0-0.4); LYMPHOCYTES ABSOLUTE AUTO 1.59 K/uL (1.00-4.80); LYMPHOCYTES PERCENT AUTO 31.9 % (24.0-44.0); MEAN PLATELET VOLUME 10.8 fL (9.4-12.3); MONOCYTES ABSOLUTE AUTO 0.68 K/uL (0.00-0.80); MONOCYTES PERCENT AUTO 13.6 % (0.0-8.0); NEUTROPHILS ABSOLUTE AUTO 2.56 K/uL (1.80-7.70); NEUTROPHILS PERCENT AUTO 51.3 % (41.0-71.0); NRBC ABSOLUTE 0.00 K/uL (0.00-0.02); NRBC PERCENT 0.0 /100WBC (0.0-0.2); PLATELET COUNT,PLT 263 K/uL (150-400); RED BLOOD CELL COUNT 4.06 M/uL (4.10-5.30); WHITE BLOOD CELL COUNT,WBC 4.99 K/uL (3.9-11.3)
[2024-11-08 07:52] LABS: A/G RATIO 0.5 (0.9-1.6); ALANINE AMINOTRANSFERASE,ALT 21.0 IU/L (14-63); ASPARTATE AMNIOTRANSFERASE,AST 18.0 IU/L (15-37); BILIRUBIN TOTAL 0.3 mg/dL (0.2-1.0); BLOOD UREA NITROGEN,BUN 9.0 mg/dL (7.0-18.0); CARBON DIOXIDE,CO2 28.9 mmol/L (21.0-32.0); CHLORIDE,CL 105.0 mmol/L (98-107); CREATININE 0.9 mg/dL (0.6-1.0); EST CRCL DRUG DOSING (CG) 64.58 mL/min; GLUCOSE RANDOM 166.0 mg/dL (74-106); POTASSIUM,K 3.3 mmol/L (3.5-5.1); PROTEIN TOTAL,TP 6.2 g/dL (6.4-8.2); SODIUM,NA 141.0 mmol/L (136-145)
[2024-11-08 07:55] LABS: ESTIMATED GFR 78.0 mL/min (>60)
[2024-11-08] MEDS: Ondansetron 4 MG Tab.DIS PO PRN (08:56)
[2024-11-09 05:59] LABS: BASOPHILS ABSOLUTE AUTO 0.03 K/uL (0.00-0.20); BASOPHILS PERCENT AUTO 0.6 % (0.0-1.0); EOSINOPHILS ABSOLUTE AUTO 0.12 K/uL (0.00-0.45); EOSINOPHILS PERCENT AUTO 2.3 % (0.0-6.0); IMMATURE GRAN ABSOLUTE AUTO 0.01 K/uL (0.00-0.05); IMMATURE GRAN PERCENT AUTO 0.2 % (0.0-0.4); LYMPHOCYTES ABSOLUTE AUTO 1.56 K/uL (1.00-4.80); LYMPHOCYTES PERCENT AUTO 30.4 % (24.0-44.0); MEAN PLATELET VOLUME 10.4 fL (9.4-12.3); MONOCYTES ABSOLUTE AUTO 0.54 K/uL (0.00-0.80); MONOCYTES PERCENT AUTO 10.5 % (0.0-8.0); NEUTROPHILS ABSOLUTE AUTO 2.87 K/uL (1.80-7.70); NEUTROPHILS PERCENT AUTO 56.0 % (41.0-71.0); NRBC ABSOLUTE 0.00 K/uL (0.00-0.02); NRBC PERCENT 0.0 /100WBC (0.0-0.2); PLATELET COUNT,PLT 261 K/uL (150-400); RED BLOOD CELL COUNT 3.92 M/uL (4.10-5.30); WHITE BLOOD CELL COUNT,WBC 5.13 K/uL (3.9-11.3)
[2024-11-09 06:32] LABS: A/G RATIO 0.5 (0.9-1.6); ALANINE AMINOTRANSFERASE,ALT 33.0 IU/L (14-63); ASPARTATE AMNIOTRANSFERASE,AST 34.0 IU/L (15-37); BILIRUBIN TOTAL 0.2 mg/dL (0.2-1.0); BLOOD UREA NITROGEN,BUN 9.0 mg/dL (7.0-18.0); CARBON DIOXIDE,CO2 31.0 mmol/L (21.0-32.0); CHLORIDE,CL 106.0 mmol/L (98-107); CREATININE 0.8 mg/dL (0.6-1.0); EST CRCL DRUG DOSING (CG) 72.65 mL/min; GLUCOSE RANDOM 143.0 mg/dL (74-106); POTASSIUM,K 4.0 mmol/L (3.5-5.1); PROTEIN TOTAL,TP 6.2 g/dL (6.4-8.2); SODIUM,NA 145.0 mmol/L (136-145)
[2024-11-09 06:34] LABS: ESTIMATED GFR 90.0 mL/min (>60)
[2024-11-09] MEDS ORDERED: Carboxymethylcellulose Sodium 0.5% Ophth Soln 0.4 ML UD Box of 30 EYEBOTH PRN (18:13)
[2024-11-10 08:24] LABS: BASOPHILS ABSOLUTE AUTO 0.03 K/uL (0.00-0.20); BASOPHILS PERCENT AUTO 0.5 % (0.0-1.0); EOSINOPHILS ABSOLUTE AUTO 0.11 K/uL (0.00-0.45); EOSINOPHILS PERCENT AUTO 1.8 % (0.0-6.0); IMMATURE GRAN ABSOLUTE AUTO 0.03 K/uL (0.00-0.05); IMMATURE GRAN PERCENT AUTO 0.5 % (0.0-0.4); LYMPHOCYTES ABSOLUTE AUTO 2.01 K/uL (1.00-4.80); LYMPHOCYTES PERCENT AUTO 32.1 % (24.0-44.0); MEAN PLATELET VOLUME 11.0 fL (9.4-12.3); MONOCYTES ABSOLUTE AUTO 0.57 K/uL (0.00-0.80); MONOCYTES PERCENT AUTO 9.1 % (0.0-8.0); NEUTROPHILS ABSOLUTE AUTO 3.52 K/uL (1.80-7.70); NEUTROPHILS PERCENT AUTO 56.0 % (41.0-71.0); NRBC ABSOLUTE 0.00 K/uL (0.00-0.02); NRBC PERCENT 0.0 /100WBC (0.0-0.2); PLATELET COUNT,PLT 263 K/uL (150-400); RED BLOOD CELL COUNT 4.16 M/uL (4.10-5.30); WHITE BLOOD CELL COUNT,WBC 6.27 K/uL (3.9-11.3)
[2024-11-10 08:32] LABS: A/G RATIO 0.5 (0.9-1.6); ALANINE AMINOTRANSFERASE,ALT 34.0 IU/L (14-63); ASPARTATE AMNIOTRANSFERASE,AST 24.0 IU/L (15-37); BILIRUBIN TOTAL 0.2 mg/dL (0.2-1.0); BLOOD UREA NITROGEN,BUN 10.0 mg/dL (7.0-18.0); CARBON DIOXIDE,CO2 28.4 mmol/L (21.0-32.0); CHLORIDE,CL 104.0 mmol/L (98-107); CREATININE 1.0 mg/dL (0.6-1.0); EST CRCL DRUG DOSING (CG) 58.12 mL/min; GLUCOSE RANDOM 173.0 mg/dL (74-106); PHOSPHORUS 3.9 mg/dL (2.6-4.7); POTASSIUM,K 3.6 mmol/L (3.5-5.1); PROTEIN TOTAL,TP 6.5 g/dL (6.4-8.2); SODIUM,NA 140.0 mmol/L (136-145)
[2024-11-10 08:38] LABS: ESTIMATED GFR 69.0 mL/min (>60)
[2024-11-10] MEDS: Magnesium Sulfate 2 GM/50 mL 2 GM in Premix Bag 1 BAG IV ONE (09:35)
[2024-11-11 05:49] LABS: BASOPHILS ABSOLUTE AUTO 0.03 K/uL (0.00-0.20); BASOPHILS PERCENT AUTO 0.4 % (0.0-1.0); EOSINOPHILS ABSOLUTE AUTO 0.11 K/uL (0.00-0.45); EOSINOPHILS PERCENT AUTO 1.5 % (0.0-6.0); IMMATURE GRAN ABSOLUTE AUTO 0.03 K/uL (0.00-0.05); IMMATURE GRAN PERCENT AUTO 0.4 % (0.0-0.4); LYMPHOCYTES ABSOLUTE AUTO 1.74 K/uL (1.00-4.80); LYMPHOCYTES PERCENT AUTO 23.6 % (24.0-44.0); MEAN PLATELET VOLUME 11.3 fL (9.4-12.3); MONOCYTES ABSOLUTE AUTO 0.61 K/uL (0.00-0.80); MONOCYTES PERCENT AUTO 8.3 % (0.0-8.0); NEUTROPHILS ABSOLUTE AUTO 4.85 K/uL (1.80-7.70); NEUTROPHILS PERCENT AUTO 65.8 % (41.0-71.0); NRBC ABSOLUTE 0.00 K/uL (0.00-0.02); NRBC PERCENT 0.0 /100WBC (0.0-0.2); PLATELET COUNT,PLT 268 K/uL (150-400); RED BLOOD CELL COUNT 4.01 M/uL (4.10-5.30); WHITE BLOOD CELL COUNT,WBC 7.37 K/uL (3.9-11.3)
[2024-11-11 06:11] LABS: A/G RATIO 0.5 (0.9-1.6); ALANINE AMINOTRANSFERASE,ALT 31.0 IU/L (14-63); ASPARTATE AMNIOTRANSFERASE,AST 22.0 IU/L (15-37); BILIRUBIN TOTAL 0.2 mg/dL (0.2-1.0); BLOOD UREA NITROGEN,BUN 12.0 mg/dL (7.0-18.0); CARBON DIOXIDE,CO2 30.3 mmol/L (21.0-32.0); CHLORIDE,CL 107.0 mmol/L (98-107); CREATININE 1.1 mg/dL (0.6-1.0); EST CRCL DRUG DOSING (CG) 52.84 mL/min; GLUCOSE RANDOM 125.0 mg/dL (74-106); PHOSPHORUS 3.8 mg/dL (2.6-4.7); POTASSIUM,K 3.5 mmol/L (3.5-5.1); PROTEIN TOTAL,TP 6.2 g/dL (6.4-8.2); SODIUM,NA 145.0 mmol/L (136-145)
[2024-11-11 06:14] LABS: ESTIMATED GFR 61.0 mL/min (>60)
[2024-11-11] MEDS: Lidocaine 1% PF 2 ML SDV INJECT ONE (15:05)
[2024-11-11] MEDS: Lidocaine 1% 2 ML ONE (16:32)
[2024-11-11] MEDS: Magnesium Sulfate 2 GM/50 mL 2 GM in Premix Bag 1 BAG IV ONE (20:42)
[2024-11-12 05:58] LABS: BASOPHILS ABSOLUTE AUTO 0.03 K/uL (0.00-0.20); BASOPHILS PERCENT AUTO 0.4 % (0.0-1.0); EOSINOPHILS ABSOLUTE AUTO 0.12 K/uL (0.00-0.45); EOSINOPHILS PERCENT AUTO 1.7 % (0.0-6.0); IMMATURE GRAN ABSOLUTE AUTO 0.03 K/uL (0.00-0.05); IMMATURE GRAN PERCENT AUTO 0.4 % (0.0-0.4); LYMPHOCYTES ABSOLUTE AUTO 1.67 K/uL (1.00-4.80); LYMPHOCYTES PERCENT AUTO 23.4 % (24.0-44.0); MEAN PLATELET VOLUME 11.0 fL (9.4-12.3); MONOCYTES ABSOLUTE AUTO 0.60 K/uL (0.00-0.80); MONOCYTES PERCENT AUTO 8.4 % (0.0-8.0); NEUTROPHILS ABSOLUTE AUTO 4.68 K/uL (1.80-7.70); NEUTROPHILS PERCENT AUTO 65.7 % (41.0-71.0); NRBC ABSOLUTE 0.00 K/uL (0.00-0.02); NRBC PERCENT 0.0 /100WBC (0.0-0.2); PLATELET COUNT,PLT 258 K/uL (150-400); RED BLOOD CELL COUNT 3.91 M/uL (4.10-5.30); WHITE BLOOD CELL COUNT,WBC 7.13 K/uL (3.9-11.3)
[2024-11-12 06:33] LABS: A/G RATIO 0.5 (0.9-1.6); ALANINE AMINOTRANSFERASE,ALT 27.0 IU/L (14-63); ASPARTATE AMNIOTRANSFERASE,AST 18.0 IU/L (15-37); BILIRUBIN TOTAL 0.2 mg/dL (0.2-1.0); BLOOD UREA NITROGEN,BUN 12.0 mg/dL (7.0-18.0); CARBON DIOXIDE,CO2 30.8 mmol/L (21.0-32.0); CHLORIDE,CL 107.0 mmol/L (98-107); CREATININE 1.1 mg/dL (0.6-1.0); EST CRCL DRUG DOSING (CG) 52.84 mL/min; GLUCOSE RANDOM 120.0 mg/dL (74-106); POTASSIUM,K 3.3 mmol/L (3.5-5.1); PROTEIN TOTAL,TP 6.2 g/dL (6.4-8.2); SODIUM,NA 146.0 mmol/L (136-145)
[2024-11-12 06:37] LABS: ESTIMATED GFR 61.0 mL/min (>60)
[2024-11-12] MEDS: cefTRIAXone 2 GM in Water For Injection, Sterile 20 ML IVPUSH SCH (11:33)
[2024-11-12] MEDS: DAPTOmycin 800 MG in Sodium Chloride 0.9% 16 ML IVPUSH SCH ×2 (12:41→13:49)
[2024-11-12 18:10] VITALS: BP 141/66; PULSE 59
== END 2024-11-12 13:45 | disposition home or self-care (01) | DRG 504 ==
LOC: MW.ED 14:38 → MW.MS 20:40
PROVIDERS: ADMIT Internal Medicine; ATTEND Internal Medicine
PROC: 3E03329 Introduction of Other Anti-infective into Peripheral Vein, Percutaneous Approach (ICD-10-PCS; 2024-11-03)
PROC: 0Q9P0ZZ Drainage of Left Metatarsal, Open Approach (ICD-10-PCS; 2024-11-05)
PROC: 0QBP0ZZ Excision of Left Metatarsal, Open Approach (ICD-10-PCS; 2024-11-05)
PROC: 0Q9P0ZZ Drainage of Left Metatarsal, Open Approach (ICD-10-PCS; 2024-11-07)
PROC: 3E04329 Introduction of Other Anti-infective into Central Vein, Percutaneous Approach (ICD-10-PCS; principal; 2024-11-08)
PROC: 02HV33Z Insertion of Infusion Device into Superior Vena Cava, Percutaneous Approach (ICD-10-PCS; 2024-11-08)
PROC: B548ZZA Ultrasonography of Superior Vena Cava, Guidance (ICD-10-PCS; 2024-11-08)
DX: M00.9 Pyogenic arthritis, unspecified (principal); L03.116 Cellulitis of left lower limb; E78.00 Pure hypercholesterolemia, unspecified; E11.9 Type 2 diabetes mellitus without complications; H54.7 Unspecified visual loss; G47.30 Sleep apnea, unspecified; K21.9 Gastro-esophageal reflux disease without esophagitis; M19.90 Unspecified osteoarthritis, unspecified site; Z75.3 Unavailability and inaccessibility of health-care facilities; G43.909 Migraine, unspecified, not intractable, without status migrainosus; E11.40 Type 2 diabetes mellitus with diabetic neuropathy, unspecified; E66.9 Obesity, unspecified; I50.9 Heart failure, unspecified; I11.0 Hypertensive heart disease with heart failure; E11.65 Type 2 diabetes mellitus with hyperglycemia; J45.909 Unspecified asthma, uncomplicated; F41.9 Anxiety disorder, unspecified; G89.29 Other chronic pain; B96.89 Other specified bacterial agents as the cause of diseases classified elsewhere; G47.00 Insomnia, unspecified; B95.62 Methicillin resistant Staphylococcus aureus infection as the cause of diseases classified elsewhere; B95.2 Enterococcus as the cause of diseases classified elsewhere; Z89.511 Acquired absence of right leg below knee; Z79.01 Long term (current) use of anticoagulants; Z88.5 Allergy status to narcotic agent; Z87.891 Personal history of nicotine dependence; Z88.8 Allergy status to other drugs, medicaments and biological substances; Z88.1 Allergy status to other antibiotic agents; Z79.899 Other long term (current) drug therapy; I25.2 Old myocardial infarction; Z95.5 Presence of coronary angioplasty implant and graft; Z79.82 Long term (current) use of aspirin; Z79.52 Long term (current) use of systemic steroids; Z79.4 Long term (current) use of insulin; Z90.49 Acquired absence of other specified parts of digestive tract; Z90.710 Acquired absence of both cervix and uterus; Z68.38 Body mass index [BMI] 38.0-38.9, adult
CPT/HCPCS: 36415; 80053; 83605; 83690; 83735; 85025; 87040 ×2; 93971; 96361; 96374; 99285; J3010; J7030; 36569; 73620-26-LT; 73620-LT; 73700-26-LT; 73700-LT; 73720-26-LT; 73720-LT; 76998; 76998-26; 80048; 80202; 82550; 82947; 83036; 84100; 85027; 87070; 87075; 87077; 87186; 87205; 99222; 99231; 99232; 99239; A4216; A9270-GY; A9579; J0696; J0878; J1815-GY; J2003; J2543; J3373; J3374; J3375; J3475; J7050

== ENCOUNTER 2024-12-04 19:14 | Inpatient (IN) | payer MEDICARE ==
[2024-12-04 20:04] LABS: BASOPHILS ABSOLUTE AUTO 0.04 K/uL (0.00-0.20); BASOPHILS PERCENT AUTO 0.7 % (0.0-1.0); EOSINOPHILS ABSOLUTE AUTO 0.08 K/uL (0.00-0.45); EOSINOPHILS PERCENT AUTO 1.4 % (0.0-6.0); IMMATURE GRAN ABSOLUTE AUTO 0.02 K/uL (0.00-0.05); IMMATURE GRAN PERCENT AUTO 0.4 % (0.0-0.4); LYMPHOCYTES ABSOLUTE AUTO 1.80 K/uL (1.00-4.80); LYMPHOCYTES PERCENT AUTO 32.3 % (24.0-44.0); MEAN PLATELET VOLUME 10.6 fL (9.4-12.3); MONOCYTES ABSOLUTE AUTO 0.43 K/uL (0.00-0.80); MONOCYTES PERCENT AUTO 7.7 % (0.0-8.0); NEUTROPHILS ABSOLUTE AUTO 3.21 K/uL (1.80-7.70); NEUTROPHILS PERCENT AUTO 57.5 % (41.0-71.0); NRBC ABSOLUTE 0.00 K/uL (0.00-0.02); NRBC PERCENT 0.0 /100WBC (0.0-0.2); PLATELET COUNT,PLT 321 K/uL (150-400); RED BLOOD CELL COUNT 4.35 M/uL (4.10-5.30); WHITE BLOOD CELL COUNT,WBC 5.58 K/uL (3.9-11.3)
[2024-12-04 20:19] LABS: BLOOD UREA NITROGEN,BUN 15.0 mg/dL (7.0-18.0); CARBON DIOXIDE,CO2 28.7 mmol/L (21.0-32.0); CHLORIDE,CL 106.0 mmol/L (98-107); CREATININE 1.1 mg/dL (0.6-1.0); EST CRCL DRUG DOSING (CG) 52.84 mL/min; GLUCOSE RANDOM 142.0 mg/dL (74-106); POTASSIUM,K 3.0 mmol/L (3.5-5.1); SODIUM,NA 141.0 mmol/L (136-145)
[2024-12-04 20:21] LABS: ESTIMATED GFR 61.0 mL/min (>60)
[2024-12-04] MEDS: Iopamidol 755 MG/ML 500 ML Multipack Bottle IVPUSH STA (20:39)
[2024-12-04] MEDS: cefTRIAXone 2 GM in Water For Injection, Sterile 20 ML IVPUSH ONE (20:49)
[2024-12-04] MEDS ORDERED: 50% Dextrose in Water 50 ML Syringe IVPUSH PRN (22:54)
[2024-12-04] MEDS ORDERED: Naloxone 0.4 MG/ML SDV IVPUSH PRN (23:01)
[2024-12-04] MEDS: Potassium Chloride 20 MEQ Tab.ER PO ONE (23:19)
[2024-12-05] MEDS: Acetaminophen/HYDROcodone 325-10 MG Tab PO PRN (02:56)
[2024-12-05] MEDS: VANCOmycin 2 GM/400 ML 400 ML IV ONE (06:40)
[2024-12-05 06:46] LABS: MEAN PLATELET VOLUME 10.8 fL (9.4-12.3); NRBC ABSOLUTE 0.00 K/uL (0.00-0.02); NRBC PERCENT 0.0 /100WBC (0.0-0.2); PLATELET COUNT,PLT 303 K/uL (150-400); RED BLOOD CELL COUNT 4.18 M/uL (4.10-5.30); WHITE BLOOD CELL COUNT,WBC 5.48 K/uL (3.9-11.3)
[2024-12-05 07:02] LABS: BLOOD UREA NITROGEN,BUN 15.0 mg/dL (7.0-18.0); CARBON DIOXIDE,CO2 27.8 mmol/L (21.0-32.0); CHLORIDE,CL 107.0 mmol/L (98-107); CREATININE 1.1 mg/dL (0.6-1.0); EST CRCL DRUG DOSING (CG) 53.22 mL/min; GLUCOSE RANDOM 101.0 mg/dL (74-106); POTASSIUM,K 3.3 mmol/L (3.5-5.1); SODIUM,NA 143.0 mmol/L (136-145)
[2024-12-05 07:06] LABS: ESTIMATED GFR 61.0 mL/min (>60)
[2024-12-05] MEDS ORDERED: Nitroglycerin 0.4 MG Tab.SL SL PRN (09:37)
[2024-12-05] MEDS ORDERED: Sodium Chloride 0.9% 10 ML Syringe FLUSH PRN (10:01)
[2024-12-05] MEDS ORDERED: Sodium Chloride 0.9% 2.5 ML Syringe FLUSH PRN (10:01)
[2024-12-05] MEDS ORDERED: Ondansetron 4 MG/2 ML SDV IVPUSH PRN ×2 (10:01→14:52)
[2024-12-05] MEDS: Metoprolol Succinate 100 MG Tab.ER PO SCH (10:52)
[2024-12-05] MEDS: Potassium Chloride 20 MEQ Tab.ER PO ONE (10:53)
[2024-12-05] MEDS: Isosorbide Mononitrate 60 MG Tab.ER PO SCH (10:53)
[2024-12-05] MEDS: Gadoteridol 279.3 MG/ML 20 ML SDV IVPUSH ONE (14:25)
[2024-12-05] MEDS ORDERED: fentaNYL 100 MCG/2 ML SDV ONE (14:51)
[2024-12-05] MEDS ORDERED: Propofol 200 MG/20 ML SDV ONE (14:51)
[2024-12-05] MEDS ORDERED: Albuterol 0.083% 2.5 MG/3 ML Neb Soln NEB PRN (14:52)
[2024-12-05] MEDS ORDERED: Naloxone 0.4 MG/ML SDV IVPUSH PRN (14:52)
[2024-12-05] MEDS ORDERED: cefTRIAXone 1 GM in Water For Injection, Sterile 10 ML IVPUSH SCH (22:00)
[2024-12-06 05:27] LABS: BASOPHILS ABSOLUTE AUTO 0.02 K/uL (0.00-0.20); BASOPHILS PERCENT AUTO 0.4 % (0.0-1.0); EOSINOPHILS ABSOLUTE AUTO 0.20 K/uL (0.00-0.45); EOSINOPHILS PERCENT AUTO 4.2 % (0.0-6.0); IMMATURE GRAN ABSOLUTE AUTO 0.01 K/uL (0.00-0.05); IMMATURE GRAN PERCENT AUTO 0.2 % (0.0-0.4); LYMPHOCYTES ABSOLUTE AUTO 1.04 K/uL (1.00-4.80); LYMPHOCYTES PERCENT AUTO 21.7 % (24.0-44.0); MEAN PLATELET VOLUME 11.4 fL (9.4-12.3); MONOCYTES ABSOLUTE AUTO 0.37 K/uL (0.00-0.80); MONOCYTES PERCENT AUTO 7.7 % (0.0-8.0); NEUTROPHILS ABSOLUTE AUTO 3.15 K/uL (1.80-7.70); NEUTROPHILS PERCENT AUTO 65.8 % (41.0-71.0); NRBC ABSOLUTE 0.00 K/uL (0.00-0.02); NRBC PERCENT 0.0 /100WBC (0.0-0.2); PLATELET COUNT,PLT 297 K/uL (150-400); RED BLOOD CELL COUNT 3.97 M/uL (4.10-5.30); WHITE BLOOD CELL COUNT,WBC 4.79 K/uL (3.9-11.3)
[2024-12-06 05:47] LABS: BLOOD UREA NITROGEN,BUN 15.0 mg/dL (7.0-18.0); CARBON DIOXIDE,CO2 27.4 mmol/L (21.0-32.0); CHLORIDE,CL 106.0 mmol/L (98-107); CREATININE 1.1 mg/dL (0.6-1.0); EST CRCL DRUG DOSING (CG) 53.22 mL/min; GLUCOSE RANDOM 126.0 mg/dL (74-106); PHOSPHORUS 3.5 mg/dL (2.6-4.7); POTASSIUM,K 3.9 mmol/L (3.5-5.1); SODIUM,NA 141.0 mmol/L (136-145)
[2024-12-06 05:49] LABS: ESTIMATED GFR 61.0 mL/min (>60)
[2024-12-06] MEDS: Magnesium Sulfate 4 GM/100 mL 4 GM in Premix Bag 1 BAG IV ONE (09:01)
[2024-12-06] MEDS: Sodium Ferric Gluconate Cmplex 125 MG in Sodium Chloride 0.9% 100 ML IV SCH (10:11)
[2024-12-07 06:22] LABS: BASOPHILS ABSOLUTE AUTO 0.05 K/uL (0.00-0.20); BASOPHILS PERCENT AUTO 1.0 % (0.0-1.0); EOSINOPHILS ABSOLUTE AUTO 0.19 K/uL (0.00-0.45); EOSINOPHILS PERCENT AUTO 3.8 % (0.0-6.0); IMMATURE GRAN ABSOLUTE AUTO 0.01 K/uL (0.00-0.05); IMMATURE GRAN PERCENT AUTO 0.2 % (0.0-0.4); LYMPHOCYTES ABSOLUTE AUTO 1.64 K/uL (1.00-4.80); LYMPHOCYTES PERCENT AUTO 33.1 % (24.0-44.0); MEAN PLATELET VOLUME 10.9 fL (9.4-12.3); MONOCYTES ABSOLUTE AUTO 0.55 K/uL (0.00-0.80); MONOCYTES PERCENT AUTO 11.1 % (0.0-8.0); NEUTROPHILS ABSOLUTE AUTO 2.51 K/uL (1.80-7.70); NEUTROPHILS PERCENT AUTO 50.8 % (41.0-71.0); NRBC ABSOLUTE 0.00 K/uL (0.00-0.02); NRBC PERCENT 0.0 /100WBC (0.0-0.2); PLATELET COUNT,PLT 289 K/uL (150-400); RED BLOOD CELL COUNT 3.90 M/uL (4.10-5.30); WHITE BLOOD CELL COUNT,WBC 4.95 K/uL (3.9-11.3)
[2024-12-07 06:39] LABS: BLOOD UREA NITROGEN,BUN 15.0 mg/dL (7.0-18.0); CARBON DIOXIDE,CO2 29.1 mmol/L (21.0-32.0); CHLORIDE,CL 107.0 mmol/L (98-107); CREATININE 1.1 mg/dL (0.6-1.0); EST CRCL DRUG DOSING (CG) 53.22 mL/min; GLUCOSE RANDOM 85.0 mg/dL (74-106); POTASSIUM,K 4.2 mmol/L (3.5-5.1); SODIUM,NA 142.0 mmol/L (136-145)
[2024-12-07 06:48] LABS: ESTIMATED GFR 61.0 mL/min (>60)
[2024-12-07] MEDS: OMNIPOD SUBCUT SCH (10:01)
[2024-12-07] MEDS: Acidophilus with Citrus Pectin/L.acidophilus Tab PO SCH (17:10)
[2024-12-08] MEDS: VANCOmycin 1.75 GM/350 ML 1.75 GM in Premix Bag 1 BAG IV SCH (06:25)
[2024-12-08 08:32] LABS: BASOPHILS ABSOLUTE AUTO 0.06 K/uL (0.00-0.20); BASOPHILS PERCENT AUTO 1.0 % (0.0-1.0); EOSINOPHILS ABSOLUTE AUTO 0.19 K/uL (0.00-0.45); EOSINOPHILS PERCENT AUTO 3.0 % (0.0-6.0); IMMATURE GRAN ABSOLUTE AUTO 0.02 K/uL (0.00-0.05); IMMATURE GRAN PERCENT AUTO 0.3 % (0.0-0.4); LYMPHOCYTES ABSOLUTE AUTO 1.63 K/uL (1.00-4.80); LYMPHOCYTES PERCENT AUTO 26.2 % (24.0-44.0); MEAN PLATELET VOLUME 11.0 fL (9.4-12.3); MONOCYTES ABSOLUTE AUTO 0.48 K/uL (0.00-0.80); MONOCYTES PERCENT AUTO 7.7 % (0.0-8.0); NEUTROPHILS ABSOLUTE AUTO 3.85 K/uL (1.80-7.70); NEUTROPHILS PERCENT AUTO 61.8 % (41.0-71.0); NRBC ABSOLUTE 0.00 K/uL (0.00-0.02); NRBC PERCENT 0.0 /100WBC (0.0-0.2); PLATELET COUNT,PLT 255 K/uL (150-400); RED BLOOD CELL COUNT 3.95 M/uL (4.10-5.30); WHITE BLOOD CELL COUNT,WBC 6.23 K/uL (3.9-11.3)
[2024-12-08 08:50] LABS: BLOOD UREA NITROGEN,BUN 11.0 mg/dL (7.0-18.0); CARBON DIOXIDE,CO2 27.0 mmol/L (21.0-32.0); CHLORIDE,CL 106.0 mmol/L (98-107); CREATININE 1.1 mg/dL (0.6-1.0); EST CRCL DRUG DOSING (CG) 53.22 mL/min; GLUCOSE RANDOM 153.0 mg/dL (74-106); POTASSIUM,K 4.0 mmol/L (3.5-5.1); SODIUM,NA 143.0 mmol/L (136-145)
[2024-12-08 09:01] LABS: ESTIMATED GFR 61.0 mL/min (>60)
[2024-12-09 06:00] LABS: BASOPHILS ABSOLUTE AUTO 0.06 K/uL (0.00-0.20); BASOPHILS PERCENT AUTO 1.2 % (0.0-1.0); EOSINOPHILS ABSOLUTE AUTO 0.15 K/uL (0.00-0.45); EOSINOPHILS PERCENT AUTO 2.9 % (0.0-6.0); IMMATURE GRAN ABSOLUTE AUTO 0.01 K/uL (0.00-0.05); IMMATURE GRAN PERCENT AUTO 0.2 % (0.0-0.4); LYMPHOCYTES ABSOLUTE AUTO 1.72 K/uL (1.00-4.80); LYMPHOCYTES PERCENT AUTO 33.0 % (24.0-44.0); MEAN PLATELET VOLUME 11.0 fL (9.4-12.3); MONOCYTES ABSOLUTE AUTO 0.51 K/uL (0.00-0.80); MONOCYTES PERCENT AUTO 9.8 % (0.0-8.0); NEUTROPHILS ABSOLUTE AUTO 2.76 K/uL (1.80-7.70); NEUTROPHILS PERCENT AUTO 52.9 % (41.0-71.0); NRBC ABSOLUTE 0.00 K/uL (0.00-0.02); NRBC PERCENT 0.0 /100WBC (0.0-0.2); PLATELET COUNT,PLT 304 K/uL (150-400); RED BLOOD CELL COUNT 4.09 M/uL (4.10-5.30); WHITE BLOOD CELL COUNT,WBC 5.21 K/uL (3.9-11.3)
[2024-12-09 06:24] LABS: BLOOD UREA NITROGEN,BUN 11.0 mg/dL (7.0-18.0); CARBON DIOXIDE,CO2 28.6 mmol/L (21.0-32.0); CHLORIDE,CL 106.0 mmol/L (98-107); CREATININE 1.1 mg/dL (0.6-1.0); EST CRCL DRUG DOSING (CG) 53.22 mL/min; GLUCOSE RANDOM 94.0 mg/dL (74-106); POTASSIUM,K 3.8 mmol/L (3.5-5.1); SODIUM,NA 144.0 mmol/L (136-145)
[2024-12-09 06:32] LABS: ESTIMATED GFR 61.0 mL/min (>60)
[2024-12-09] MEDS: Albuterol 0.083% 2.5 MG/3 ML Neb Soln NEB PRN (08:33)
[2024-12-09 08:38] VITALS: PULSE 61
[2024-12-09 13:05] VITALS: BP 157/72
== END 2024-12-09 15:00 | disposition home or self-care (01) | DRG 549 ==
LOC: MW.ED 19:14 → MW.MS 21:34 → OBSVTOIN 12-05 09:29
PROVIDERS: ADMIT Family Medicine; ATTEND Family Medicine
PROC: 0Y9N0ZZ Drainage of Left Foot, Open Approach (ICD-10-PCS; principal; 2024-12-04)
DX: M00.9 Pyogenic arthritis, unspecified (principal); I50.32 Chronic diastolic (congestive) heart failure; I50.9 Heart failure, unspecified; L02.612 Cutaneous abscess of left foot; Z68.41 Body mass index [BMI] 40.0-44.9, adult; K21.9 Gastro-esophageal reflux disease without esophagitis; E11.9 Type 2 diabetes mellitus without complications; Z88.5 Allergy status to narcotic agent; Z91.011 Allergy to milk products; G89.29 Other chronic pain; Z79.4 Long term (current) use of insulin; I70.90 Unspecified atherosclerosis; I25.10 Atherosclerotic heart disease of native coronary artery without angina pectoris; Z66 Do not resuscitate; J44.9 Chronic obstructive pulmonary disease, unspecified; I11.0 Hypertensive heart disease with heart failure; Z68.39 Body mass index [BMI] 39.0-39.9, adult; E78.00 Pure hypercholesterolemia, unspecified; G47.30 Sleep apnea, unspecified; K44.9 Diaphragmatic hernia without obstruction or gangrene; G43.909 Migraine, unspecified, not intractable, without status migrainosus; E11.40 Type 2 diabetes mellitus with diabetic neuropathy, unspecified; E66.9 Obesity, unspecified; D64.9 Anemia, unspecified; I25.2 Old myocardial infarction; Z98.890 Other specified postprocedural states; Z90.49 Acquired absence of other specified parts of digestive tract; Z90.710 Acquired absence of both cervix and uterus; Z87.891 Personal history of nicotine dependence; Z89.511 Acquired absence of right leg below knee; Z88.8 Allergy status to other drugs, medicaments and biological substances; Z86.718 Personal history of other venous thrombosis and embolism; Z79.82 Long term (current) use of aspirin; Z79.899 Other long term (current) drug therapy; Z95.5 Presence of coronary angioplasty implant and graft; Z79.01 Long term (current) use of anticoagulants
CPT/HCPCS: 36415 ×2; 73701; 80048 ×2; 82947; 85025; 85027; 96374; 96375; 99284; A4216; A9270 ×4; J0696; J2543; J3375; Q9967; 01470; 73720-26-LT; 73720-LT; 80202; 83735; 84100; 87070; 87075; 87077; 87186; 87205; 96365; 96366; 96368; 96376; 99222; 99232; 99239; 99285; A9579; G0378; J0665; J1171; J1815-GY; J2003; J2704; J2765; J2916; J3010; J3374; J3475; J7050

== ENCOUNTER 2025-02-08 18:19 | Emergency (ER) | payer MEDICARE ==
[2025-02-08 20:03] VITALS: BP 122/60; PULSE 86
== END 2025-02-08 20:00 | disposition home or self-care (01) ==
LOC: MW.ED 18:19
DX: M25.561 Pain in right knee (principal); I11.0 Hypertensive heart disease with heart failure; I50.9 Heart failure, unspecified; K21.9 Gastro-esophageal reflux disease without esophagitis; E78.00 Pure hypercholesterolemia, unspecified; E11.9 Type 2 diabetes mellitus without complications; E66.9 Obesity, unspecified; Z87.891 Personal history of nicotine dependence; Z90.710 Acquired absence of both cervix and uterus; Z79.899 Other long term (current) drug therapy; Z79.84 Long term (current) use of oral hypoglycemic drugs; Z79.01 Long term (current) use of anticoagulants; Z79.82 Long term (current) use of aspirin; Z88.5 Allergy status to narcotic agent; Z91.0110 Allergy to milk products, unspecified; Z88.8 Allergy status to other drugs, medicaments and biological substances; W19.XXXA Unspecified fall, initial encounter
CPT/HCPCS: 73560-26-RT; 73560-RT; 99283